=== PATIENT | female | born 1935 | race Caucasian/White ===

== ENCOUNTER 2024-09-08 17:47 | Emergency (ER) | payer OTHER, SELFPAY ==
[2024-09-08 17:53] VITALS: BP 151/72; PULSE 70; RESP 18; TEMP 36.8; O2SAT 93
--- NOTE | 2024-09-08 17:58 | ED.GENADULT ---
HPI - General Adult General Date Seen: 09/08/24 Chief complaint: Urogenital Problems, Female Stated complaint: Urine Retention Time Seen by Provider: 09/08/24 17:57 History of Present Illness HPI narrative: 89 yo Female who was transported to the ER today by EMS from her assisted living for evaluation of urinary retention. Patient does have Lewy body dementia so is not a completely reliable historian. History is obtained mostly from her daughter but also somewhat from records that her along with her. She does have a history of dementia and is on donepezil and rimantadine. She is also on risperidone and sertraline. A few days ago she hit her left elbow accidentally is at some redness and swelling there. She apparently had ?a scan? of her elbow today and is present prescribed an antibiotic (cefdinir) to treat for left elbow cellulitis. She has not received the antibiotic or taken the 1st dose yet. She is not having any abdominal pain but apparently her caregivers were concerned that she was not urinating. She had a bladder ultrasound today that apparently showed a volume of 700 mL of urine in her bladder. Her nurses from the assisted living center here to the ER to have a Hernandez catheter placed. She is not having any abdominal pain. No fever. No nausea or vomiting. No flank pain. Her daughter recalls that once, several years ago, she had temporary placement of a Hernandez catheter. Daughter cannot recall the cause of the urinary retention at that time. The patient also apparently had norovirus about 2 weeks ago. She has Imodium on her med list but it looks like she has not received today. Daughter also reports that the patient's 2 days ago. The family is in the midst of arranging . Related Data Home Medications ?Medication ?Instructions ?Recorded ?Confirmed Senokot-S PRN 09/08/24 amlodipine 5 mg tablet 5 mg PO DAILY 09/08/24 09/08/24 divalproex 250 mg tablet,extended 250 mg PO HS 09/08/24 09/08/24 release 24 hr (Depakote ER) donepezil 5 mg tablet (Aricept) 5 mg PO QHS 09/08/24 09/08/24 levothyroxine 50 mcg capsule 50 mcg PO DAILY 09/08/24 09/08/24 memantine 2.5 mg PO BID 09/08/24 09/08/24 menthol 0.44 %-zinc oxide 20.6 % 1 applic topical TID-QID PRN 09/08/24 09/08/24 topical ointment in packet (Edmund) risperidone 1 mg tablet (Risperdal) 1 mg PO BID 09/08/24 09/08/24 sertraline 100 mg tablet 100 mg PO DAILY 09/08/24 09/08/24 sertraline 50 mg tablet 50 mg PO DAILY 09/08/24 09/08/24 Allergies Allergy/AdvReac Type Severity Reaction Status Date / Time Sulfa (Sulfonamide Allergy Unknown Verified 09/08/24 18:10 Antibiotics) Exam Narrative: Exam Narrative: Constitutional: Appears well-developed and well-nourished. Alert. Conversant but poor historian. Non toxic. Very polite. HENT: Head: Atraumatic. Nose: Nose normal. Mouth/Throat: Oral mucosa is clear and moist. no trismus. Pharynx normal. Eyes: Conjunctivae normal. EOM normal. Pupils equal, round, and reactive to light. No scleral icterus. Neck: Normal range of motion. Neck supple. No tracheal deviation present. Cardiovascular: Normal rate, regular rhythm. No gallop. No friction rub. No murmur heard. Normal capillary refill Pulmonary/Chest: Effort normal. No stridor. No respiratory distress. No wheezes. No rales. No rhonchi . Abdominal: Soft. Bowel sounds normal. No distension. No mass. No tenderness. No rebound. No guarding. No CVA tenderness Musculoskeletal: RUE: Normal range of motion. No tenderness. No deformity LUE: Normal range of motion. No tenderness. No deformity RLE: Normal range of motion. No edema. No tenderness. No deformity LLE: Normal range of motion. No edema. No tenderness. No deformity Neurological: Alert and oriented to person, place, and time. Normal strength. CN II-VII intact. No sensory deficit. GCS eye subscore is 4. GCS verbal subscore is 5. GCS motor subscore is 6. Normal coordination Skin: Skin is warm and dry. No rash noted. No pallor. Normal capillary refill. Psychiatric: Normal mood. Normal affect. Very polite. Daughter is attentively at her side Const: Vital Signs, click to edit/add: Vital Signs - 24 hr 09/08/24 17:53 Temperature 98.3 F Pulse Rate [Pulse Oximeter] 70 Respiratory Rate 18 Blood Pressure [Ri ght Upper Arm] 151/72 H Pulse Oximetry 93 Oxygen Delivery Me thod Room Air Course Course ED Course: History and physical performed in ER stable to. I did do a bedside ultrasound and confirmed the bladder was full. Bladder dimensions 8.8 x 10.2 x 10.1 cm. I did not order a formal point of care ultrasound for this patient Hernandez catheter was placed by nursing and urinalysis sent for analysis. 800 mL of dark yellow urine output Vital Signs Vital signs: Initial Vital Signs Temperature 98.3 F 09/08/24 17:53 Temperature Source Temporal Artery Scan 09/08/24 17:53 Pulse Rate 70 09/08/24 17:53 Respiratory Rate 18 09/08/24 17:53 Blood Pressure 151/72 H 09/08/24 17:53 Blood Pressure Mean 98 09/08/24 17:53 Blood Pressure Position Sitting 09/08/24 17:53 Pulse Oximetry 93 09/08/24 17:53 Oxygen Delivery Method Room Air 09/08/24 17:53 Vital Signs Temperature 98.3 F 09/08/24 17:53 Pulse Rate 70 09/08/24 17:53 Respiratory Rate 18 09/08/24 17:53 Blood Pressure 151/72 H 09/08/24 17:53 Pulse Oximetry 93 09/08/24 17:53 Oxygen Delivery Method Room Air 09/08/24 17:53 Temperature 98.3 F 09/08/24 17:53 Pulse Rate 70 09/08/24 17:53 Respiratory Rate 18 09/08/24 17:53 Blood Pressure 151/72 H 09/08/24 17:53 Pulse Oximetry 93 09/08/24 17:53 Oxygen Delivery Method Room Air 09/08/24 17:53 Medical Decision Making MDM Narrative Medical decision making narrative: Very pleasant 89-year-old female with some dementia brought to the ER today with acute urinary retention and inability to void since yesterday. She had approximately 700 mils of urine in her bladder based on reported ultrasound done in her care facility. Surprisingly she is not having any abdominal pain or flank pain. Hernandez catheter was placed here in the ER and she did have about 800 mils of yellow urine out. Urinalysis does show positive nitrite which is suspicious for UTI as a cause for her acute urinary retention. I reviewed her med list. She is on risperidone and sertraline and recently was on Imodium. All these meds can also cause urinary retention. Currently no other anticholinergics. She was given a prescription for Ceftin earlier today by her regular provider through her assisted living because she has left elbow cellulitis. To cefdinir would be a very good choice to treat urinary tract infection. Therefore will have the patient start the cefdinir tonight which would cover both her left elbow cellulitis and her urine without adding a 2nd anti microbial agent. Urine culture is ordered and pending at the time of this dictation. If it grows a pathogen resistant to cefdinir, we can contact the patient's family by phone to change antibiotics At this point she is not febrile. She is well-appearing. No abdominal pain or flank pain to suggest pyelonephritis. At this point I do not think she needs laboratory workup, CT imaging, admission. Patient and her daughter are in agreement. They strongly prefer discharge since they are in the midst of a family grieving process Precautions for return to the ER reviewed They will follow-up with her PCP in her assisted living in 5-7 days for catheter removal and trial of voiding. Reviewed Hernandez catheter care with the patient and her daughter. Given the patient's dementia we will have to rely on her nurses from the assisted living to help with the catheter Lab Data Labs: Lab Results 09/08/24 Range/Units 18:50 Urine Color Yellow (Yellow) Urine Appearance Cloudy A (Clear) Urine pH 7.0 (5.0-8.5) Ur Specific [place] 1.015 (1.000-1.030) Urine Protein Negative (Negative) Urine Glucose (UA) Negative (Negative) Urine Ketones Negative (Negative) Urine Blood Negative (Negative) Urine Nitrite Positive A (Negative) Urine Bilirubin Negative (Negative) Urine Urobilinogen 1.0 (0.2-1.0) Ur Leukocyte Esterase Trace A (Negative) Urine RBC 0-2 (0-2) Urine WBC 2-5 (0-5) Ur Squamous Epith Cells Few (None-Few) Urine Bacteria Many A (None) Discharge Plan Discharge Clinical Impression: Urinary tract infection, Acute urinary retention Patient Disposition: Hospice - Medical Facility Condition: Stable Instructions: Hernandez Catheter Placement and Care (ED), Acute Urinary Retention in Women (ED), Urinary Tract Infection in Older Adults (ED) Additional Instructions: As we discussed, her urinalysis shows weak signs of a bladder infection. This is likely what is causing her urinary retention. Please start her on the antibiotic (cefdinir) that was already prescribed to her for her elbow. This antibiotic would treat both her elbow infection and her urinary tract infection. The [facility] laboratory will run a urine culture from today specimen. If it grows an unusual strain of bacteria that is not susceptible to cefdinir, the hospital will call you to change antibiotics (likely in 1 or 2 days) Please follow-up with your regular doctor within 5-7 days to have a recheck , remove the Hernandez catheter , and do a trial of voiding. If she has any worsening symptoms such as fever, abdominal pain, flank pain, repetitive vomiting, weakness, or if you have any concerns, please come back to the emergency room right away. Prescriptions: No Action amlodipine 5 mg tablet 5 mg PO DAILY CalaSoothe 0.44-20.6 % ointment in packet 1 applic topical TID-QID PRN divalproex [Depakote ER] 250 mg tablet extended release 24 hr 250 mg PO HS donepezil [Aricept] 5 mg tablet 5 mg PO QHS levothyroxine 50 mcg capsule 50 mcg PO DAILY memantine 2.5 mg PO BID risperidone [Risperdal] 1 mg tablet 1 mg PO BID Senokot-S PRN sertraline 100 mg tablet 100 mg PO DAILY sertraline 50 mg tablet 50 mg PO DAILY Stand Alone Forms: [employer] Info Instructions
[2024-09-08 19:05] LABS: Appearance Urine Cloudy (Clear); Bilirubin Urine Negative (Negative); Blood Urine Negative (Negative); Color Urine Yellow (Yellow); Glucose Urine Negative (Negative); Ketones Urine Negative (Negative); Leukocyte Esterase Urine Trace (Negative); Nitrite Urine Positive (Negative); Protein Urine Negative (Negative); Specific Gravity Urine 1.015 (1.000-1.030)
[2024-09-08 19:17] LABS: Bacteria Urine Many; RBC Urine 0-2 (0-2); Squamous Epithelial Cell Urine Few (None-Few)
[2024-09-08 19:47] VITALS: BP 160/78; PULSE 69; RESP 20; O2SAT 95
== END 2024-09-08 22:07 | disposition hospice, inpatient (51) ==
PROVIDERS: Emergency Provider Emergency Medicine
DX: N39.0 Urinary tract infection, site not specified (principal)
CPT/HCPCS: 51702; 81001; 87086; 99283

== ENCOUNTER 2024-09-10 16:09 | Emergency (ER) | payer OTHER, SELFPAY ==
[2024-09-10] VITALS (14 sets, daily range): BP systolic 136–150; BP diastolic 62–72; PULSE 57–64; RESP 18; TEMP 36.3; O2SAT 92–95; BMI 23.9
--- OUTSIDE RECORDS SUMMARY | 2024-09-10 16:13 | XMS_ITS | CCD ---
Author Name Aida Sr CNP Address [address] [place] [address] Phone Organization [facility] Phone Care Team Providers Care Furnace And Wash Equipment Operator Name Role Phone Aida Sr CNP Primary Care Provider Unavaila ble Orin HYDROGRAPHIC SURVEYORAida Chronic Care Management Unavai lable Summary Purpose DataExchange Insurance Providers Payer name Policy type / Coverage type Covered alliance party ID Effective Begin Date Effective End Date [employer] Commercial Insurance [id number] Unknown [id number] Family History Family History data not found Allergies, Adverse Reactions, Alerts Substance Reaction Codes Entered Date Inactivated Date Status Sulfa Unknown 11/14/2022 No Inactive Date Ac tive Problems Condition Codes Effective Dates Condition St atus Dementia ICD-10: F03.90 ICD-9: 294.20 12/11/2022 Active Depression, major, recurrent, 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 ICD-9: 296.31 12/11/2022 Active Hypothyroid ICD-10: E03.9 ICD-9: 244.9 12/11/2022 Active UTI (urinary tract infection) ICD-10: N3 9.0 ICD-9: 599.0 12/11/2022 Active Advanced care planning - to document end of life discussions Unknown 11/20/2022 Active Advance care planning ICD-10: Z71.89 ICD-9: V65.49 11/20/2022 Active Anxiety ICD-10: F41.9 ICD-9: 300.00 11/20/2022 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 ICD-9: 301.89 11/20/2022 Active HTN (hypertension) ICD-10: I10 ICD-9: 401.9 11/20/2022 Active Suicidal ideation ICD-10: R45.851 ICD-9: V62.84 11/20/2022 Active Vitamin D deficiency ICD-10: E55.9 ICD-9: 268.9 11/20/2022 Active Medications Medication Codes Instructions Start Date Stop Date Status Fill Instructions levofloxacin 500 mg tablet RxNorm: 021251 Take 1 Tablet(s) Oral QD 3 023 Inactive levofloxacin 500 mg tablet RxNorm: 227274 Take 1 Tablet(s) Oral QD 3 023 Inactive levothyroxine 50 mcg tablet RxNorm: 349090 Take 1 Tablet(s) Oral QD before Breakfast 3 023 Inactive amitriptyline 10 mg tablet RxNorm: 901291 Take 1 Tablet(s) Oral QHS every night at bedtime 3 023 Inactive acetaminophen 500 mg tablet RxNorm: 626035 2 Tablet(s) Oral TID as needed 3 023 Inactive amlodipine 5 mg tablet RxNorm: 013058 Take 1 Tablet(s) Oral QAM every morning 3 023 Inactive melatonin 5 mg tablet RxNorm: 161346 Give 1 Tablet(s) Oral QHS every night at bedtime 3 023 Inactive buspirone 15 mg tablet RxNorm: 742639 Take 1 Tablet(s) Oral BID 3 023 Inactive Seroquel 25 mg tablet RxNorm: 891769 Take 1 Tablet(s) Oral QHS every night at bedtime 3 023 Inactive cholecalciferol (vitamin D3) 50 mcg (2,000 unit) tablet RxNorm: 655966 Take 1 Tablet(s) Oral QD 3 023 Inactive rivastigmine 1.5 mg capsule RxNorm: 474478 Take 2 Capsule(s) Oral BID 3 023 Inactive mirtazapine 15 mg tablet RxNorm: 682770 Take 1 Tablet(s) Oral QHS every night at bedtime 3 023 Inactive aspirin-acetaminoph en-caffeine 250 mg-250 mg-65 mg tablet RxNorm: 530455 Take 2 Tablet(s) Oral QD as needed 3 023 Inactive escitalopram 10 mg tablet RxNorm: 699353 Take 1 Tablet(s) Oral QD 3 023 Inactive Medication Administered No Medication Administered data Immunizations Vaccine Codes Dose Date Status Influenza CVX: 205 1.0 04/06/2022 Covid-19 (PacerPro mR NA, LNP-S, PF, 30 mcg/0.3 mL dose, amanda-sucrose) CVX: 217 1.0 02/08/2022 Covid-19 (Adult) CVX: 208 1.0 04/11/2021 Covid-19 (Adult) CVX: 208 1.0 08/31/2020 Covid-19 (Adult) CVX: 208 1.0 08/10/2020 Tdap CVX: 115 1.0 07/26/2020 Tetanus, Diptheria, Pertussis CVX: 115 1.0 2020 Influenza CVX: 197 1.0 03/19/2020 Zostavax CVX: 187 1.0 02/10/2019 Zoster CVX: 187 1.0 02/10/2019 Zostavax CVX: 187 1.0 07/31/2018 Zoster CVX: 187 1.0 07/31/2018 Pneumococcal CVX: 133 1.0 05/09/2016 HepA - Adult CVX: 52 1.0 08/15/2011 Pneumococcal CVX: 33 1.0 04/03/2011 HepA - Adult CVX: 52 1.0 08/16/2010 Tdap CVX: 115 1.0 08/16/2010 Tetanus, Diptheria, Pertussis CVX: 115 1.0 2010 Zostavax CVX: 121 1.0 07/08/2007 Zoster CVX: 121 1.0 07/08/2007 Pneumococcal CVX: 33 1.0 01/02/2001 Pneumococcal CVX: 33 1.0 09/04/2000 Vital Signs Date Vital 12/11/2022 Blood Pressure 1: 143/87 Code: 8480-6 Heart Rate 1: 84 bpm Code: 8867-4 Respiratory Rate: 20 bpm Temperature: 36.3 (C) / 97.3 (F) Weight: 155 lbs 8 oz Code: 3141-9 Reason For Visit No Reason For Visit data Encounters Encounter Performer Location Location Address Codes Date () Home or Residence Visit Est Pt - Moderate Level, 40 mins Diagnosis: UTI (urinary tract infection)[ICD10: N39.0] Diagnosis: Depression, major, recurrent, mild[ICD10: F33.0] Diagnosis: Hypothyroid[ICD10 : E03.9] Diagnosis: Dementia[ICD10: F03.90] Aida Sr [facility] at [address] [address] CPT-4: 60754 12/11/2022 Plan of Care Planned Activity Notes Codes Status Date Patient Education: Patient Medication Summary Completed 12/11/2022 Patient Education: Influenza Vaccine Completed 12/11/2022 Appointment: Aida Sr WPtel: [address] [place] [address] [id number] 11/20/2022 Referral: General Psychiatrist Referral Patient/Family Scheduling Appointment Referral: VIA Orthopedics- I n Home Visits WPtel: [address] [id number] Referral Order Note Incomplete Instructions Comment Date Elderly female residing in [facility] assisted living at [facility] in [place]. PMHx: dementia, cluster B personality traits, depression, hypothyroidism, HTN, anxiety, suicidal ideationsPOLST: FULL CODEFred Anatoly-spouse, Duhq: November/DecLisa-therapist: weekly calls usually on :1 visits 3 times weekly 01/28/2024 Depression Continue amitripyline 10mg q HS, lexapro 10mg daily, mirtazapine 15mg at HS. Will monitor for signs of decreased/increased sleep or appetite, decreased energy level or interest in activities. Age increases risk for depression. Will continuously evaluate appropriate involvement of medications, BHI, Psych and additional sitter/caregiver. Hypothyroidism Continue levothyroxine 50mcg. Monitor for fatigue, increased sensitivity to cold, constipation, irritability, weakness, muscle aches or stiffness, decreased HR, hoarse voice and enlarged thyroid. November 2022 TSH 1.63 UTI Patient was treated for UTI on 11/23/22 with levofloxacin 500mg daily x 7 days. Monitor for s/s of uti. Encourage adequate fluid intake. Neurocognitive Disorders Continue buspar 15mg BID, mirtazapine 15mg at HS, rivastigmine 3mg BID, seroquel 25mg at HS. Appreciate BPS psych and BHI. Safe in [facility] setting with 24 hour nursing supervision. Anticipate ongoing cognitive and physical decline with disease progression. Continue current care plan and reassessment in one month. Facility to update with any changes in the condition. . 12/11/2022
--- OUTSIDE RECORDS SUMMARY | 2024-09-10 16:15 | XMS_ITS | CCD ---
Author Organization Unknown Care Team Providers Care Product Test Specialist Name Role Phone Orin GARCIA, Aida Primary Care Provider Unavaila ble Aida Sr CNP Chronic Care Management Unavai lable Summary Purpose DataExchange Insurance Providers Payer name Policy type / Coverage type Covered alliance party ID Effective Begin Date Effective End Date [employer] Commercial Insurance [id number] Unknown [id number] Family History Family History data not found Allergies, Adverse Reactions, Alerts Substance Reaction Codes Entered Date Inactivated Date Status Sulfa Unknown 11/14/2022 No Inactive Date Ac tive Problems Condition Codes Effective Dates Condition St atus Anxiety ICD-10: F41.9 ICD-9: 300.00 02/28/2023 Active Dementia ICD-10: F03.90 ICD-9: 294.20 02/28/2023 Active Major depression, 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 ICD-9: 301.89 01/18/2023 Active Suicidal ideation ICD-10: R45.851 ICD-9: V62.84 01/18/2023 Active HTN (hypertension) ICD-10: I10 ICD-9: 401.9 01/15/2023 Active Hypothyroid ICD-10: E03.9 ICD-9: 244.9 12/11/2022 Active UTI (urinary tract infection) ICD-10: N3 9.0 ICD-9: 599.0 12/11/2022 Active Advanced care planning - to document end of life discussions Unknown 11/20/2022 Active Advance care planning ICD-10: Z71.89 ICD-9: V65.49 11/20/2022 Active Vitamin D deficiency ICD-10: E55.9 ICD-9: 268.9 11/20/2022 Active Medications Medication Codes Instructions Start Date Stop Date Status Fill Instructions naproxen 500 mg tablet RxNorm: 008867 Take 1 Tablet(s) Oral BID 01/23/20 023 Inactive naproxen 500 mg tablet RxNorm: 205324 Take 1 Tablet(s) Oral BID 01/23/20 023 Inactive naproxen 500 mg tablet RxNorm: 569552 Take 1 Tablet(s) Oral BID 01/23/20 023 Inactive mirtazapine 15 mg tablet RxNorm: 946126 Take 1 Tablet(s) Oral HS at bed time 01/01/20 023 Inactive CYCLE FILL REQUEST FOR CYCLE THAT STARTS 01/04/2023 escitalopram 10 mg tablet RxNorm: 814867 Take 1 Tablet(s) Oral QAM every morning 12/14/19 023 Inactive Cycle refill request. Cycle restarts (01/04/23). melatonin 10 mg sublingual tablet RxNorm: 6423459 TAKE 1 TABLET BY MOUTH AT BEDTIME NOTE DOSAGE/STRENGTH* 12/14/19 023 Inactive Cycle refill request. Cycle restarts (01/04/23). rivastigmine 1.5 mg capsule RxNorm: 165107 Take 1 Capsule(s) Oral BID 12/14/19 023 Inactive Cycle refill request. Cycle restarts (01/04/23). quetiapine 100 mg tablet RxNorm: 653819 Take 1 Tablet(s) Oral HS at bed time 12/14/19 023 Inactive Cycle refill request. Cycle restarts (01/04/23). buspirone 15 mg tablet RxNorm: 391809 Take 1 Tablet(s) Oral BID 12/14/19 023 Inactive Cycle refill request. Cycle restarts (01/04/23). amitriptyline 10 mg tablet RxNorm: 960357 Take 1 Tablet(s) Oral HS at bed time 12/14/19 23 023 Inactive Cycle refill request. Cycle restarts (01/04/23). cholecalciferol (vitamin D3) 50 mcg (2,000 unit) tablet RxNorm: 807121 Take 1 Tablet(s) Oral QAM every morning 12/14/19 23 023 Inactive Cycle refill request. Cycle restarts (01/04/23). levothyroxine 50 mcg tablet RxNorm: 298374 TAKE 1 TABLET BY MOUTH ONCE DAILY BEFORE BREAKFAST 12/14/19 23 023 Inactive Cycle refill request. Cycle restarts (01/04/23). amlodipine 5 mg tablet RxNorm: 785866 Take 1 Tablet(s) Oral QAM every morning 12/14/19 23 023 Inactive Cycle refill request. Cycle restarts (01/04/23). levofloxacin 500 mg tablet RxNorm: 924144 Take 1 Tablet(s) Oral QD 11/24/19 23 023 Inactive levofloxacin 500 mg tablet RxNorm: 764355 Take 1 Tablet(s) Oral QD 11/24/19 23 023 Inactive acetaminophen 500 mg tablet RxNorm: 925935 2 Tablet(s) Oral TID as needed 11/18/19 23 023 Inactive Seroquel 25 mg tablet RxNorm: 691711 Take 1 Tablet(s) Oral QHS every night at bedtime 11/18/19 23 023 Inactive aspirin-acetaminoph en-caffeine 250 mg-250 mg-65 mg tablet RxNorm: 271378 Take 2 Tablet(s) Oral QD as needed 11/18/19 23 023 Inactive levothyroxine 50 mcg tablet RxNorm: 625209 Take 1 Tablet(s) Oral QD before Breakfast 11/18/19 23 023 Inactive amitriptyline 10 mg tablet RxNorm: 567235 Take 1 Tablet(s) Oral QHS every night at bedtime 11/18/19 23 023 Inactive amlodipine 5 mg tablet RxNorm: 934462 Take 1 Tablet(s) Oral QAM every morning 11/18/19 23 06/07/2 023 Inactive melatonin 5 mg tablet RxNorm: 575580 Give 1 Tablet(s) Oral QHS every night at bedtime 11/18/19 023 Inactive buspirone 15 mg tablet RxNorm: 812227 Take 1 Tablet(s) Oral BID 11/18/19 023 Inactive cholecalciferol (vitamin D3) 50 mcg (2,000 unit) tablet RxNorm: 906536 Take 1 Tablet(s) Oral QD 11/18/19 023 Inactive rivastigmine 1.5 mg capsule RxNorm: 520163 Take 2 Capsule(s) Oral BID 11/18/19 023 Inactive mirtazapine 15 mg tablet RxNorm: 821293 Take 1 Tablet(s) Oral QHS every night at bedtime 11/18/19 023 Inactive escitalopram 10 mg tablet RxNorm: 764922 Take 1 Tablet(s) Oral QD 11/18/19 023 Inactive Medication Administered No Medication Administered data Immunizations Vaccine Codes Dose Date Status Influenza CVX: 205 1.0 04/06/2022 Covid-19 ([email or web address] mR NA, LNP-S, PF, 30 mcg/0.3 mL [...] 1.0 01/02/2001 Pneumococcal CVX: 33 1.0 09/04/2000 Reason For Visit No Reason For Visit data Plan of Care Planned Activity Notes Codes Status Date Referral: General Psychiatrist Referral Patient/Family Scheduling Appointment Referral: VIA Orthopedics- I n Home Visits WPtel: [address], [address] [id number] Referral Order Note Incomplete Instructions Comment Date Elderly female residing in [facility] assisted living at [facility]. PMHx: dementia, cluster B personality traits, depression, hypothyroidism, HTN, anxiety, suicidal ideationsPOLST: FULL CODEFred Anatoly-spouse, Dnia: November/Scotty-therapist: weekly calls usually on :1 visits 3 times weekly 01/28/2024
--- OUTSIDE RECORDS SUMMARY | 2024-09-10 16:15 | XMS_ITS | CCD ---
Author Name Aida Sr CNP Address [address] [place] [address] Phone Organization [facility] Phone Care Team Providers Care Meat Counter Clerk Name Role Phone Orin RADHAAida Primary Care Provider Unavaila ble Orin RADHAAida Chronic Care Management Unavai lable Summary Purpose DataExchange Insurance Providers Payer name Policy type / Coverage type Covered democrat ID Effective Begin Date Effective End Date [employer] Commercial Insurance [id number] Unknown Family history Runs in the family Diagnosis Age At Onset No Known Diseases N/A Social History Social History Element Codes Description Effec tive Dates Marital status Unknown 01/28/2024 Living arrangements Unknown Memory Care 01/28/[address]: 766778164 Never smoker 01/[address]: 115771749 No Alcohol Consum ption 01/28/2024 Sexually Active? Unknown No 01/28/2024 Children Unknown Has Children 01/28/2024 Patient Health Status Self Assessment Unknown Good 01/28/2024 Do you worry about access to food? Unknown No 01/28/2024 Seatbelt safety Unknown Wears seatbelt 01/28/2024 Illicit Drug History Unknown Has never u sed illegal drugs 01/28/2024 Do you feel safe in your home? Unknown Yes 01/28/2024 Allergies, Adverse Reactions, Alerts Substance Reaction Codes Entered Date Inactivated Date Status Sulfa Unknown 11/14/2022 No Inactive Date Ac tive Problems Condition Codes Effective Dates Condition St atus Acute cough SNOMED CT: 289240667 [id number] ICD-10: R05.1 ICD-9: 786.2 09/08/2024 Active Dementia ICD-10: F03.90 ICD-9: 294.20 09/08/2024 Active HTN (hypertension) ICD-10: I10 ICD-9: 401.9 09/08/2024 Active Hypothyroid ICD-10: E03.9 ICD-9: 244.9 09/08/2024 Active Insomnia ICD-10: G47.00 ICD-9: 780.52 09/08/2024 Active Left elbow pain SNOMED CT: 97209587 ICD-10: M25.522 ICD-9: 719.42 09/08/2024 Active Urinary frequency SNOMED CT: 524959769 ICD-10: R35.0 ICD-9: 788.41 09/08/2024 Active Frailty ICD-10: R54 ICD-9: 797 08/04/2024 Active Depression, major, recurrent, 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 ICD-9: 296.34 06/30/2024 Active 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 ICD-9: 297.1 06/30/2024 Active Fall ICD-10: W19.XXXA ICD-9: E888.9 06/02/2024 Active Paresis ICD-10: G83.9 ICD-9: 344.9 05/05/2024 Active Advance care planning ICD-10: Z71.89 ICD-9: V65.49 01/28/2024 Active Anxiety ICD-10: F41.9 ICD-9: 300.00 01/28/2024 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 ICD-9: 301.89 01/28/2024 Active Encounter for preventive care ICD-10: Z00.00 ICD-9: V70.0 01/28/2024 Active Gait instability ICD-10: R26.81 ICD-9: 781.2 01/28/2024 Active Major depression, 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9 ICD-9: 296.30 01/28/2024 Resolved Spider bite wound ICD-10: T63.301A ICD-9: 989.5 01/28/2024 Resolved Strain of right trapezius muscle, initial encounter ICD-10: S46.811A ICD-9: 840.8 01/28/2024 Resolved UTI (urinary tract infection) ICD-10: N39.0 ICD-9: 599.0 12/31/2023 Active Depression, major, recurrent, mild ICD-10: F33.0 ICD-9: 296.31 09/17/2023 Resolved Elevated liver enzymes ICD-10: R74.8 ICD-9: 790.5 07/23/2023 Active Suicidal ideation ICD-10: R45.851 ICD-9: V62.84 05/04/2023 Active Advanced care planning - to document end of life discussions Unknown 11/20/2022 Active Vitamin D deficiency ICD-10: E55.9 ICD-9: 268.9 11/20/2022 Active Medications Medication Codes Instructions Start Date Stop Date Status Fill Instructions miscellaneous medical supply [facility] RxNorm: TUNGUYEN DM LIQ 20-400ML Take 10 Milliliter(s) Oral BID as needed 09/09/19 No Stop Date Active Pain Reliever Plus 250 mg-250 mg-65 mg tablet RxNorm: 100867 Take 1 Tablet(s) Oral QD as needed 09/09/19 No Stop Date Active cefdinir 300 mg capsule RxNorm: 558674 Take 1 Capsule(s) Oral BID 09/09/19 25 025 Active trazodone 50 mg tablet RxNorm: 868269 Take 1 Tablet(s) Oral QHS every night at bedtime as needed 09/09/19 25 026 Active loperamide 2 mg tablet RxNorm: 267163 Take 1 Tablet(s) Oral BID as needed 09/09/19 25 025 Active cefdinir 300 mg capsule RxNorm: 108701 Take 1 Capsule(s) Oral BID 09/09/19 25 025 Inactive trazodone 50 mg tablet RxNorm: 044732 Take 1 Tablet(s) Oral QHS every night at bedtime 09/08/19 25 025 Inactive Calmoseptine 0.44 %-20.6 % topical ointment RxNorm: 0265054 Apply Topical TID as needed to Buttocks and affected areas 08/26/19 25 025 Active Calmoseptine 0.44 %-20.6 % topical ointment RxNorm: 8930066 Apply ointment Topical TID as needed to Buttocks and affected areas 08/26/19 25 025 Inactive ondansetron 4 mg disintegrating tablet RxNorm: 835534 Take 1 Tablet(s) Oral Q4H every four hours as needed 08/25/19 25 025 Inactive ondansetron 4 mg disintegrating tablet RxNorm: 992106 Take 1 Tablet(s) Oral Q4H every four hours as needed 08/25/19 25 025 Inactive sertraline 100 mg tablet RxNorm: 938043 Take 1 Tablet(s) Oral QD 08/14/19 25 025 Inactive REFILL REQUEST FOR CYCLE THAT STARTS ON 09/11/24. THANK YOU. donepezil 5 mg tablet RxNorm: 804344 TAKE ONE-HALF TABLET (2.5MG) BY MOUTH ONCE DAILY 07/20/19 25 049 Active CYCLE FILL REFILL REQUEST FOR CYCLE FILL THAT STARTS 08/14/2024 Senexon-S 8.6 mg-50 mg tablet RxNorm: 6456035 Take 1 Tablet(s) Oral BID as needed 06/30/20 24 028 Active risperidone 1 mg tablet RxNorm: 662354 Take 1 Tablet(s) Oral BID 06/26/20 24 025 Active memantine 5 mg tablet RxNorm: 359032 TAKE ONE-HALF TABLET (2.5MG) BY MOUTH TWICE DAILY 06/23/20 24 049 Active REFILL REQUEST FOR CYCLE THAT BEGINS 07/17, THANK YOU risperidone 0.5 mg tablet RxNorm: 618045 Take 1 Tablet(s) Oral QAM every morning 03/14/20 024 Inactive acetaminophen 500 mg tablet RxNorm: 830566 Take 2 Tablet(s) Oral TID as needed 02/22/20 24 No Stop Date Active risperidone 1 mg tablet RxNorm: 993010 Take 1 Tablet(s) Oral HS at bed time 02/22/20 24 024 Inactive acetaminophen 500 mg tablet RxNorm: 646229 Take 2 Tablet(s) Oral TID as needed 02/22/20 24 024 Inactive sertraline 100 mg tablet RxNorm: 974419 Take 1 Tablet(s) Oral QD Take w/ 50mg tablet 01/27/20 24 025 Active sertraline 50 mg tablet RxNorm: 932230 Take 1 Tablet(s) Oral QD Take w/ 100mg tablet 01/27/20 24 025 Active acetaminophen 500 mg tablet RxNorm: 472181 Take 2 Tablet(s) Oral TID as needed 01/27/20 24 024 Inactive amlodipine 5 mg tablet RxNorm: 222314 Take 1 Tablet(s) Oral QAM every morning 01/09/20 24 048 Active REFILL REQUEST FOR CYCLE THAT BEGINS 01/30, THANK YOU! levothyroxine 50 mcg tablet RxNorm: 289172 Take 1 Tablet(s) Oral QD BEFORE BREAKFAST 01/09/20 24 048 Active REFILL REQUEST FOR CYCLE THAT BEGINS 01/30, THANK YOU! cholecalciferol (vitamin D3) 50 mcg (2,000 unit) tablet RxNorm: 367815 Take 1 Tablet(s) Oral QAM every morning 01/09/20 24 048 Active REFILL REQUEST FOR CYCLE THAT BEGINS 01/30, THANK YOU! risperidone 0.5 mg tablet RxNorm: 780265 Take 1 Tablet(s) Oral BID 01/09/20 24 024 Inactive REFILL REQUEST FOR CYCLE THAT BEGINS 01/30, THANK YOU! sertraline 50 mg tablet RxNorm: 981582 TAKE 1 TABLET BY MOUTH ONCE DAILY. TAKE ALONG WITH 100 MG TABLET DAILY FOR A TOTAL DOSE OF 150 MG 01/09/20 24 024 Inactive REFILL REQUEST FOR CYCLE THAT BEGINS 01/30, THANK YOU! risperidone 0.5 mg tablet RxNorm: 343453 Take 1 Tablet(s) Oral BID 01/07/20 24 024 Inactive levofloxacin 500 mg tablet RxNorm: 747154 Take 1 Tablet(s) Oral QD 12/31/19 24 024 Inactive acetaminophen 500 mg tablet RxNorm: 094624 Take 2 Tablet(s) Oral TID 12/31/19 24 024 Inactive levofloxacin 500 mg tablet RxNorm: 956675 Take 1 Tablet(s) Oral QD 12/31/19 24 024 Inactive divalproex ER 250 mg tablet,extended release 24 hr RxNorm: 0137164 TAKE 1 TABLET BY MOUTH AT BEDTIME HAZARDOUS DRUG-DOUBLE GLOVE 10/21/19 24 048 Active CYCLE FILL REFILL REQUEST FOR CYCLE FILL THAT STARTS 11/08/2023. risperidone 1 mg tablet RxNorm: 030774 Take 1 Tablet(s) Oral BID 10/21/19 24 024 Inactive CYCLE FILL REFILL REQUEST FOR CYCLE FILL THAT STARTS 11/08/2023. acetaminophen 500 mg tablet RxNorm: 114785 Take 2 Tablet(s) Oral BID as needed 09/13/19 24 Inactive Tylenol Extra Strength 500 mg tablet RxNorm: 165428 Take 2 Tablet(s) Oral BID as needed 09/13/19 24 Inactive trazodone 50 mg tablet RxNorm: 876793 Take 1 Tablet(s) Oral QHS every night at bedtime 09/13/19 24 024 Inactive quetiapine 100 mg tablet RxNorm: 929285 Take 1.5 Tablet(s) Oral HS at bed time 09/13/19 24 024 Inactive Senexon-S 8.6 mg-50 mg tablet RxNorm: 0330111 Take 1 Tablet(s) Oral BID as needed 09/13/19 24 025 Inactive sertraline 100 mg tablet RxNorm: 113693 Take 1.5 Tablet(s) Oral QD 09/13/19 24 024 Inactive Pain Reliever Plus 250 mg-250 mg-65 mg tablet RxNorm: 613481 Take 2 Tablet(s) Oral QD as needed 09/13/19 24 024 Inactive sertraline 100 mg tablet RxNorm: 439364 Take 1 Tablet(s) Oral QD 07/29/19 24 024 Inactive Please authorize cycle refill. Thanks. acetaminophen 500 mg tablet RxNorm: 873087 Take 2 Tablet(s) Oral BID as needed 07/20/19 24 024 Inactive acetaminophen 500 mg tablet RxNorm: 265870 Take 2 Tablet(s) Oral BID as needed 07/20/19 24 024 Inactive sertraline 100 mg tablet RxNorm: 763548 Take 1 Tablet(s) Oral QD 07/13/19 024 Inactive donepezil 5 mg tablet RxNorm: 935680 TAKE ONE-HALF TABLET (2.5MG) BY MOUTH ONCE DAILY 07/05/20 023 Inactive Cycle refill request. Cycle restarts (07/19/23). risperidone 1 mg tablet RxNorm: 882677 Take 1 Tablet(s) Oral HS at bed time 06/25/20 024 Inactive trazodone 50 mg tablet RxNorm: 346613 Take 1 Tablet(s) Oral QHS every night at bedtime as needed 06/25/20 024 Inactive quetiapine 25 mg tablet RxNorm: 888537 Take 1 Tablet(s) Oral Q4H every four hours as needed 06/25/20 024 Inactive Senna-S 8.6 mg-50 mg tablet RxNorm: 626793 Take 1 Tablet(s) Oral BID as needed 06/25/20 023 Inactive trazodone 50 mg tablet RxNorm: 756652 Take 1 Tablet(s) Oral QHS every night at bedtime as needed 06/25/20 023 Inactive Senna-S 8.6 mg-50 mg tablet RxNorm: 306600 Take 1 Tablet(s) Oral BID as needed 06/25/20 024 Inactive acetaminophen 500 mg tablet RxNorm: 152228 Take 2 Tablet(s) Oral BID as needed 06/18/20 024 Inactive acetaminophen 500 mg tablet RxNorm: 084955 Take 2 Tablet(s) Oral BID as needed 06/18/20 23 023 Inactive Excedrin Extra Strength 250 mg-250 mg-65 mg tablet RxNorm: 439642 Take 2 Tablet(s) Oral QD as needed 06/18/20 23 023 Inactive Excedrin Extra Strength 250 mg-250 mg-65 mg tablet RxNorm: 601613 Take 2 Tablet(s) Oral QD as needed 06/18/20 23 024 Inactive risperidone 1 mg tablet RxNorm: 987102 Take 1 Tablet(s) Oral BID 06/04/20 23 023 Inactive quetiapine 25 mg tablet RxNorm: 899842 Take 1 Tablet(s) Oral BID as needed 06/04/20 023 Inactive trazodone 50 mg tablet RxNorm: 854077 Take 1 Tablet(s) Oral QHS every night at bedtime 06/04/20 023 Inactive donepezil 10 mg tablet RxNorm: 922128 Take 1 Tablet(s) Oral QD 06/04/20 024 Inactive risperidone 1 mg tablet RxNorm: 705404 Take 1 Tablet(s) Oral BID as needed 06/04/20 023 Inactive Senexon-S 8.6 mg-50 mg tablet RxNorm: 7286550 Take 1 Tablet(s) Oral BID 06/03/20 023 Inactive Please authorize quantity 90 day supply with PRN refills for assisted living patient. Their cycle restarts 06/14/23. Thank you! memantine 5 mg tablet RxNorm: 020062 TAKE ONE-HALF TABLET (2.5MG) BY MOUTH TWICE DAILY 06/03/20 023 Inactive Please authorize quantity 90 day supply with PRN refills for assisted living patient. Their cycle restarts 06/14/23. Thank you! divalproex 125 mg capsule,delayed release sprinkle RxNorm: 1728469 TAKE 4 CAPSULES (500MG) BY MOUTH AT BEDTIME 06/03/20 024 Inactive Please authorize quantity 90 day supply with PRN refills for assisted living patient. Their cycle restarts 06/14/23. Thank you! sertraline 50 mg tablet RxNorm: 068672 Take 1 Tablet(s) Oral QD 06/03/20 024 Inactive Please authorize quantity 90 day supply with PRN refills for assisted living patient. Their cycle restarts 06/14/23. Thank you! naproxen 500 mg tablet RxNorm: 644367 Take 1 Tablet(s) Oral BID 01/23/20 023 Inactive naproxen 500 mg tablet RxNorm: 084365 Take 1 Tablet(s) Oral BID 07/17/20 23 07/26/2 023 Inactive naproxen 500 mg tablet RxNorm: 235147 Take 1 Tablet(s) Oral BID 01/23/20 23 023 Inactive mirtazapine 15 mg tablet RxNorm: 109171 Take 1 Tablet(s) Oral HS at bed time 01/01/20 23 023 Inactive CYCLE FILL REQUEST FOR CYCLE THAT STARTS 01/04/2023 escitalopram 10 mg tablet RxNorm: 652371 Take 1 Tablet(s) Oral QAM every morning 12/14/19 23 023 Inactive Cycle refill request. Cycle restarts (01/04/23). cholecalciferol (vitamin D3) 50 mcg (2,000 unit) tablet RxNorm: 442254 Take 1 Tablet(s) Oral QAM every morning 12/14/19 23 023 Inactive Cycle refill request. Cycle restarts (01/04/23). melatonin 10 mg sublingual tablet RxNorm: 0043645 TAKE 1 TABLET BY MOUTH AT BEDTIME NOTE DOSAGE/STRENGTH* 12/14/19 23 023 Inactive Cycle refill request. Cycle restarts (01/04/23). rivastigmine 1.5 mg capsule RxNorm: 969443 Take 1 Capsule(s) Oral BID 12/14/19 023 Inactive Cycle refill request. Cycle restarts (01/04/23). quetiapine 100 mg tablet RxNorm: 714753 Take 1 Tablet(s) Oral HS at bed time 12/14/19 23 023 Inactive Cycle refill request. Cycle restarts (01/04/23). levothyroxine 50 mcg tablet RxNorm: 056088 TAKE 1 TABLET BY MOUTH ONCE DAILY BEFORE BREAKFAST 12/14/19 23 023 Inactive Cycle refill request. Cycle restarts (01/04/23). amlodipine 5 mg tablet RxNorm: 908013 Take 1 Tablet(s) Oral QAM every morning 12/14/19 23 023 Inactive Cycle refill request. Cycle restarts (01/04/23). buspirone 15 mg tablet RxNorm: 580131 Take 1 Tablet(s) Oral BID 12/14/19 23 023 Inactive Cycle refill request. Cycle restarts (01/04/23). amitriptyline 10 mg tablet RxNorm: 442535 Take 1 Tablet(s) Oral HS at bed time 12/14/19 23 023 Inactive Cycle refill request. Cycle restarts (01/04/23). levofloxacin 500 mg tablet RxNorm: 234921 Take 1 Tablet(s) Oral QD 11/24/19 23 023 Inactive levofloxacin 500 mg tablet RxNorm: 895981 Take 1 Tablet(s) Oral QD 11/24/19 23 023 Inactive levothyroxine 50 mcg tablet RxNorm: 479303 Take 1 Tablet(s) Oral QD before Breakfast 11/18/19 023 Inactive amitriptyline 10 mg tablet RxNorm: 758453 Take 1 Tablet(s) Oral QHS every night at bedtime 11/18/19 023 Inactive acetaminophen 500 mg tablet RxNorm: 847415 2 Tablet(s) Oral TID as needed 11/18/19 23 023 Inactive amlodipine 5 mg tablet RxNorm: 321337 Take 1 Tablet(s) Oral QAM every morning 11/18/19 023 Inactive melatonin 5 mg tablet RxNorm: 843585 Give 1 Tablet(s) Oral QHS every night at bedtime 11/18/19 23 023 Inactive buspirone 15 mg tablet RxNorm: 171711 Take 1 Tablet(s) Oral BID 11/18/19 023 Inactive Seroquel 25 mg tablet RxNorm: 667498 Take 1 Tablet(s) Oral QHS every night at bedtime 11/18/19 23 023 Inactive cholecalciferol (vitamin D3) 50 mcg (2,000 unit) tablet RxNorm: 431967 Take 1 Tablet(s) Oral QD 11/18/19 23 023 Inactive rivastigmine 1.5 mg capsule RxNorm: 113440 Take 2 Capsule(s) Oral BID 11/18/19 23 023 Inactive mirtazapine 15 mg tablet RxNorm: 409705 Take 1 Tablet(s) Oral QHS every night at bedtime 11/18/19 023 Inactive aspirin-acetaminoph en-caffeine 250 mg-250 mg-65 mg tablet RxNorm: 475089 Take 2 Tablet(s) Oral QD as needed 11/18/19 023 Inactive escitalopram 10 mg tablet RxNorm: 581744 Take 1 Tablet(s) Oral QD 11/18/19 023 Inactive Medication Administered No Medication Administered data Immunizations Vaccine Codes Dose Date Status Influenza CVX: 205 1.0 04/06/2022 Covid-19 (Shelfie-Wilocity mR NA, LNP-S, PF, 30 mcg/0.3 mL [...] 33 1.0 09/04/2000 Vital Signs Date Vital 09/08/2024 Blood Pressure 1: 135/59 Code: 8480-6 Heart Rate 1: 67 bpm Code: 8867-4 Respiratory Rate: 23 bpm Temperature: 36.1 (C) / 96.9 (F) Weight: 163 lbs 3 oz Code: 3141-9 Functional Status Functional / Cognitive Codes Status Result Ef fective Dates Functional Assessment Unknown ADL - Dressing Independen t 01/28/2024 Functional Assessment Unknown ADL - Feeding Independent 01/28/2024 Functional Assessment Unknown ADL - Tolieting Independe nt 01/28/2024 Functional Assessment Unknown ADL - Bathing Needs Help 01/28/2024 Functional Assessment Unknown ADL - Grooming Needs Help 01/28/2024 Functional Assessment Unknown ADL - Physical Ambulation Independent 01/28/2024 Functional Assessment Unknown iADL - Mod e of Transportation Dependent 01/28/2024 Functional Assessment Unknown iADL - Managing Medicatio n Dependent 01/28/2024 Functional Assessment Unknown Other: Catherine pping, Finances, Housekeeping, Dependent 01/28/2024 Reason For Visit No Reason For Visit data Encounters Encounter Performer Location Location Address Codes Date ([address]) Home or Residence Visit Est Pt - High Level, 60 mins Diagnosis: Urinary frequency[SNOMED: 058538010] Diagnosis: HTN (hypertension)[IC D10: I10] Diagnosis: Left elbow pain[SNOMED: 01829639] Diagnosis: Hypothyroid[ICD10 : E03.9] Diagnosis: Acute cough[SNOMED: 54687824006640959 4] Diagnosis: Dementia[ICD10: F03.90] Diagnosis: Insomnia[ICD10: G47.00] Aida Sr [facility] at [address] [address] CPT-4: 57030 09/08/2024 Plan of Care Planned Activity Notes Codes Status Date Patient Education: Patient Medication Summary Completed 09/08/2024 Patient Education: Influenza Completed 09/08/2024 Care Plan: X-Ray, elbow; 2 views LOINC : 39129-4 Pending 09/08/2024 Care Plan: Comprehensive Metabolic Panel Pending 09/08/2024 Care Plan: CBC with Platelets & Differential Pending 025 Care Plan: TSH with Reflex to Free T4 Pending 09/08/2024 Appointment: Aida Sr WPt[facility]: [address] [place] [address] [address] [id number] [place] F/U 12/31/2023 Appointment: Aida Sr W[facility]: [address] [place] [address] [address] [id number] [place] F/U 09/17/2023 Appointment: Aida Sr W[facility]: [address] [place] [address] [id number] [place] F/U 07/23/2023 Appointment: Aida Sr [facility]Pt[facility]: [address] [place] [address] [id number] [place] F/U 06/25/2023 Appointment: Bam Frey: [address] [place], [place] [id number] [place] SDV 01/22/2023 Appointment: Aida Sr WPtel: [address] [place] [address] [id number] [place] NPAWV 11/20/2022 Referral: General Psychiatrist Referral Patient/Family Scheduling Appointment Referral: [facility] Vis[facility] WPtel: [address], [address] [id number] Referral Order Note Incomplete Instructions Comment Date Elderly female residing in [facility] assisted living at [facility]. PMHx: dementia, cluster B personality traits, depression, hypothyroidism, HTN, anxiety, suicidal ideationsPOLST: FULL CODEFred Anatoly-spouse, Hurf: November/Scotty-therapist: weekly calls usually on -:1 visits 3 times weekly 01/28/2024 Insomnia Will start trazodone 50mg qHS PRN. Left elbow pain Will order left elbow XRAY and consult [facility]. Will start cefdinir 300mg BID x 7 days. Hypothyroid levothyroxine 50mcg qd. Will check TSH. Urinary frequency Increase in urinary frequency. Will check UA/UC and ultrasound of bladder. Dementia Will order hospice to evaluate and treat. namenda 2.5mg BID, donepezil 2.5mg qd. HTN (hypertension) amlodipine 5mg qd. Will check CBC, BMP Acute cough Will order CXR. . 09/08/2024
--- OUTSIDE RECORDS SUMMARY | 2024-09-10 16:15 | XMS_ITS | CCD ---
Author Name Aida Sr CNP Address [address] [facility] [address] [facility] [address] [place] [address] Phone Organization [facility] Phone Care Team Providers Care Insurance Loss Adjuster Name Role Phone Aida Sr CNP Primary Care Provider Unavaila ble Orin [employer]OM[employer] EX[employer]IVE PRODUCERAida Chronic Care Management Unavai lable Summary Purpose DataExchange Insurance Providers Payer name Policy type / Coverage type Covered constitution party ID Effective Begin Date Effective End Date [employer] Commercial Insurance [id number] Unknown Family History Family History data not found Allergies, Adverse Reactions, Alerts Substance Reaction Codes Entered Date Inactivated Date Status Sulfa Unknown 11/14/2022 No Inactive Date Ac tive Problems Condition Codes Effective Dates Condition St atus 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 ICD-9: 301.89 10/29/2023 Active HTN (hypertension) ICD-10: I10 ICD-9: 401.9 10/29/2023 Active Dementia ICD-10: F03.90 ICD-9: 294.20 09/17/2023 Active Depression, major, recurrent , 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 9 ICD-9: 296.30 05/21/2023 Active Suicidal ideation ICD-10: R45.851 ICD-9: V62.84 05/04/2023 Active Strain of right trapezius mu scle, initial encounter ICD-10: S46.811A ICD-9: 840.8 01/22/2023 Active Advanced care planning - to document end of life discussions Unknown 11/20/2022 Active Advance care planning ICD-10: Z71.89 ICD-9: V65.49 11/20/2022 Active Vitamin D deficiency ICD-10: E55.9 ICD-9: 268.9 11/20/2022 Active Medications Medication Codes Instructions Start Date Stop Date Status Fill Instructions divalproex ER 250 mg tablet,extended release 24 hr RxNorm: 2840399 TAKE 1 TABLET BY MOUTH AT BEDTIME HAZARDOUS DRUG-DOUBLE GLOVE 10/21/19 24 048 Active CYCLE FILL REFILL REQUEST FOR CYCLE FILL THAT STARTS 11/08/2023. risperidone 1 mg tablet RxNorm: 221229 Take 1 Tablet(s) Oral BID 10/21/19 24 024 Inactive CYCLE FILL REFILL REQUEST FOR CYCLE FILL THAT STARTS 11/08/2023. Tylenol Extra Strength 500 mg tablet RxNorm: 296357 Take 2 Tablet(s) Oral BID as needed 09/13/19 24 024 Inactive trazodone 50 mg tablet RxNorm: 029651 Take 1 Tablet(s) Oral QHS every night at bedtime 09/13/19 24 024 Inactive Senexon-S 8.6 mg-50 mg tablet RxNorm: 1559081 Take 1 Tablet(s) Oral BID as needed 09/13/19 24 025 Inactive sertraline 100 mg tablet RxNorm: 595504 Take 1.5 Tablet(s) Oral QD 09/13/19 24 024 Inactive Pain Reliever Plus 250 mg-250 mg-65 mg tablet RxNorm: 674746 Take 2 Tablet(s) Oral QD as needed 09/13/19 24 Inactive acetaminophen 500 mg tablet RxNorm: 450483 Take 2 Tablet(s) Oral BID as needed 09/13/19 24 024 Inactive quetiapine 100 mg tablet RxNorm: 373203 Take 1.5 Tablet(s) Oral HS at bed time 09/13/19 24 024 Inactive sertraline 100 mg tablet RxNorm: 765017 Take 1 Tablet(s) Oral QD 07/29/19 Inactive Please authorize cycle refill. Thanks. acetaminophen 500 mg tablet RxNorm: 092037 Take 2 Tablet(s) Oral BID as needed 07/20/19 24 Inactive acetaminophen 500 mg tablet RxNorm: 203601 Take 2 Tablet(s) Oral BID as needed 07/20/19 Inactive sertraline 100 mg tablet RxNorm: 136922 Take 1 Tablet(s) Oral QD 07/13/19 024 Inactive donepezil 5 mg tablet RxNorm: 863022 TAKE ONE-HALF TABLET (2.5MG) BY MOUTH ONCE DAILY 07/05/20 023 Inactive Cycle refill request. Cycle restarts (07/19/23). risperidone 1 mg tablet RxNorm: 363813 Take 1 Tablet(s) Oral HS at bed time 06/25/20 024 Inactive trazodone 50 mg tablet RxNorm: 107380 Take 1 Tablet(s) Oral QHS every night at bedtime as needed 06/25/20 23 024 Inactive quetiapine 25 mg tablet RxNorm: 349787 Take 1 Tablet(s) Oral Q4H every four hours as needed 06/25/20 23 024 Inactive Senna-S 8.6 mg-50 mg tablet RxNorm: 859704 Take 1 Tablet(s) Oral BID as needed 06/25/20 23 023 Inactive trazodone 50 mg tablet RxNorm: 598861 Take 1 Tablet(s) Oral QHS every night at bedtime as needed 06/25/20 023 Inactive Senna-S 8.6 mg-50 mg tablet RxNorm: 123746 Take 1 Tablet(s) Oral BID as needed 06/25/20 024 Inactive acetaminophen 500 mg tablet RxNorm: 877648 Take 2 Tablet(s) Oral BID as needed 06/18/20 024 Inactive acetaminophen 500 mg tablet RxNorm: 410963 Take 2 Tablet(s) Oral BID as needed 06/18/20 023 Inactive Excedrin Extra Strength 250 mg-250 mg-65 mg tablet RxNorm: 806270 Take 2 Tablet(s) Oral QD as needed 06/18/20 Inactive Excedrin Extra Strength 250 mg-250 mg-65 mg tablet RxNorm: 357241 Take 2 Tablet(s) Oral QD as needed 06/18/20 024 Inactive risperidone 1 mg tablet RxNorm: 215131 Take 1 Tablet(s) Oral BID 06/04/20 023 Inactive quetiapine 25 mg tablet RxNorm: 214244 Take 1 Tablet(s) Oral BID as needed 06/04/20 023 Inactive trazodone 50 mg tablet RxNorm: 847101 Take 1 Tablet(s) Oral QHS every night at bedtime 06/04/20 023 Inactive donepezil 10 mg tablet RxNorm: 191553 Take 1 Tablet(s) Oral QD 06/04/20 024 Inactive risperidone 1 mg tablet RxNorm: 225272 Take 1 Tablet(s) Oral BID as needed 06/04/20 023 Inactive Senexon-S 8.6 mg-50 mg tablet RxNorm: 1634961 Take 1 Tablet(s) Oral BID 06/03/20 023 Inactive Please authorize quantity 90 day supply with PRN refills for assisted living patient. Their cycle restarts 06/14/23. Thank you! memantine 5 mg tablet RxNorm: 815383 TAKE ONE-HALF TABLET (2.5MG) BY MOUTH TWICE DAILY 06/03/20 023 Inactive Please authorize quantity 90 day supply with PRN refills for assisted living patient. Their cycle restarts 06/14/23. Thank you! divalproex 125 mg capsule,delayed release sprinkle RxNorm: 0502893 TAKE 4 CAPSULES (500MG) BY MOUTH AT BEDTIME 06/03/20 024 Inactive Please authorize quantity 90 day supply with PRN refills for assisted living patient. Their cycle restarts 06/14/23. Thank you! sertraline 50 mg tablet RxNorm: 068641 Take 1 Tablet(s) Oral QD 06/03/20 024 Inactive Please authorize quantity 90 day supply with PRN refills for assisted living patient. Their cycle restarts 06/14/23. Thank you! naproxen 500 mg tablet RxNorm: 684426 Take 1 Tablet(s) Oral BID 01/23/20 23 023 Inactive naproxen 500 mg tablet RxNorm: 520281 Take 1 Tablet(s) Oral BID 01/23/20 23 023 Inactive naproxen 500 mg tablet RxNorm: 562460 Take 1 Tablet(s) Oral BID 01/23/20 23 023 Inactive mirtazapine 15 mg tablet RxNorm: 825079 Take 1 Tablet(s) Oral HS at bed time 01/01/20 023 Inactive CYCLE FILL REQUEST FOR CYCLE THAT STARTS 01/04/2023 escitalopram 10 mg tablet RxNorm: 165154 Take 1 Tablet(s) Oral QAM every morning 12/14/19 23 023 Inactive Cycle refill request. Cycle restarts (01/04/23). cholecalciferol (vitamin D3) 50 mcg (2,000 unit) tablet RxNorm: 763179 Take 1 Tablet(s) Oral QAM every morning 12/14/19 23 023 Inactive Cycle refill request. Cycle restarts (01/04/23). melatonin 10 mg sublingual tablet RxNorm: 8441351 TAKE 1 TABLET BY MOUTH AT BEDTIME NOTE DOSAGE/STRENGTH* 12/14/19 23 023 Inactive Cycle refill request. Cycle restarts (01/04/23). rivastigmine 1.5 mg capsule RxNorm: 448018 Take 1 Capsule(s) Oral BID 12/14/19 23 023 Inactive Cycle refill request. Cycle restarts (01/04/23). quetiapine 100 mg tablet RxNorm: 233628 Take 1 Tablet(s) Oral HS at bed time 12/14/19 23 023 Inactive Cycle refill request. Cycle restarts (01/04/23). levothyroxine 50 mcg tablet RxNorm: 456096 TAKE 1 TABLET BY MOUTH ONCE DAILY BEFORE BREAKFAST 12/14/19 23 023 Inactive Cycle refill request. Cycle restarts (01/04/23). amlodipine 5 mg tablet RxNorm: 094300 Take 1 Tablet(s) Oral QAM every morning 12/14/19 23 023 Inactive Cycle refill request. Cycle restarts (01/04/23). buspirone 15 mg tablet RxNorm: 709152 Take 1 Tablet(s) Oral BID 12/14/19 23 023 Inactive Cycle refill request. Cycle restarts (01/04/23). amitriptyline 10 mg tablet RxNorm: 921289 Take 1 Tablet(s) Oral HS at bed time 12/14/19 23 023 Inactive Cycle refill request. Cycle restarts (01/04/23). levofloxacin 500 mg tablet RxNorm: 529573 Take 1 Tablet(s) Oral QD 11/24/19 23 023 Inactive levofloxacin 500 mg tablet RxNorm: 564534 Take 1 Tablet(s) Oral QD 11/24/19 23 023 Inactive levothyroxine 50 mcg tablet RxNorm: 202368 Take 1 Tablet(s) Oral QD before Breakfast 11/18/19 23 023 Inactive amitriptyline 10 mg tablet RxNorm: 894535 Take 1 Tablet(s) Oral QHS every night at bedtime 11/18/19 23 023 Inactive acetaminophen 500 mg tablet RxNorm: 678341 2 Tablet(s) Oral TID as needed 11/18/19 023 Inactive amlodipine 5 mg tablet RxNorm: 614875 Take 1 Tablet(s) Oral QAM every morning 11/18/19 023 Inactive melatonin 5 mg tablet RxNorm: 247743 Give 1 Tablet(s) Oral QHS every night at bedtime 11/18/19 023 Inactive buspirone 15 mg tablet RxNorm: 361624 Take 1 Tablet(s) Oral BID 11/18/19 023 Inactive Seroquel 25 mg tablet RxNorm: 974505 Take 1 Tablet(s) Oral QHS every night at bedtime 11/18/19 023 Inactive cholecalciferol (vitamin D3) 50 mcg (2,000 unit) tablet RxNorm: 248176 Take 1 Tablet(s) Oral QD 11/18/19 023 Inactive rivastigmine 1.5 mg capsule RxNorm: 893851 Take 2 Capsule(s) Oral BID 11/18/19 023 Inactive mirtazapine 15 mg tablet RxNorm: 076629 Take 1 Tablet(s) Oral QHS every night at bedtime 11/18/19 023 Inactive aspirin-acetaminoph en-caffeine 250 mg-250 mg-65 mg tablet RxNorm: 068473 Take 2 Tablet(s) Oral QD as needed 11/18/19 023 Inactive escitalopram 10 mg tablet RxNorm: 697361 Take 1 Tablet(s) Oral QD 11/18/19 023 Inactive Medication Administered No Medication Administered data Immunizations Vaccine Codes Dose Date Status Influenza CVX: 205 1.0 04/06/2022 Covid-19 ([employer] mR NA, LNP-S, PF, 30 mcg/0.3 mL [...] 33 1.0 09/04/2000 Vital Signs Date Vital 10/29/2023 Blood Pressure 1: 140/73 Code: 8480-6 Heart Rate 1: 74 bpm Code: 8867-4 Respiratory Rate: 17 bpm Temperature: 36.3 (C) / 97.3 (F) Reason For Visit No Reason For Visit data Encounters Encounter Performer Location Location Address Codes Date ([address]) Home or Residence Visit Est Pt - Moderate Level, 40 mins Diagnosis: HTN (hypertension)[ICD 10: I10] 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] Aida Sr [facility] at [address] [address] CPT-4: 70474 10/29/2023 Plan of Care Planned Activity Notes Codes Status Date Patient Education: Patient Medication Summary Completed 10/29/2023 Patient Education: Influenza Complet ed 10/29/2023 Appointment: Aida Sr WPtel: [address] [facility] [address] F/U 09/17/2023 Appointment: Aida Sr WPtel: [address] [id number] [place] F/U 07/23/2023 Appointment: Aida Sr WPtel: [address] [id number] [place] F/U 06/25/2023 Appointment: Bam Frey: [address] [place] [address] [id number] [place] SDV 01/22/2023 Appointment: Aida Sr WPtel: [address] [place] [address] [id number] NPAWV 11/20/2022 Referral: General Psychiatrist Referral Patient/Family Scheduling Appointment Referral: [facility] Home Visits WPtel: [address], [address] [id number] Referral Order Note Incomplete Instructions Comment Date Elderly female residing in [facility] assisted living at [facility] in [place]. 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 Follows with psych as directed. Monitor for hallucinations, delusions, anger outbursts or physical altercations, and free floating anxiety. HTN (hypertension) BP 140/73, norvasc 5mg qd. Care plan: Routinely monitor blood pressures to follow trends. Goal is less than 150/90. Watch for side effects to medications and for over treatment, which can cause hypotension. . 10/29/2023
--- OUTSIDE RECORDS SUMMARY | 2024-09-10 16:17 | XMS_ITS | CCD ---
Author Organization Unknown Care Team Providers Care Cigar Making Supervisor Name Role Phone Orin GARCIA, Aida Primary Care Provider Unavaila ble Aida Sr CNP Chronic Care Management Unavai lable Summary Purpose DataExchange Insurance Providers Payer name Policy type / Coverage type Covered libertarian ID Effective Begin Date Effective End Date [employer] Commercial Insurance [id number] Unknown Family History Family History data not found Allergies, Adverse Reactions, Alerts Substance Reaction Codes Entered Date Inactivated Date Status Sulfa Unknown 11/14/2022 No Inactive Date Ac tive Problems Condition Codes Effective Dates Condition St atus Dementia ICD-10: F03.90 ICD-9: 294.20 06/25/2023 Active HTN (hypertension) ICD-10: I10 ICD-9: 401.9 06/25/2023 Active Hypothyroid ICD-10: E03.9 ICD-9: 244.9 06/25/2023 Active Insomnia ICD-10: G47.00 ICD-9: 780.52 06/25/2023 Active Anxiety ICD-10: F41.9 ICD-9: 300.00 06/04/2023 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 9 ICD-9: 296.30 05/21/2023 Active Suicidal ideation ICD-10: R45.851 ICD-9: V62.84 05/04/2023 Active Strain of right trapezius mu scle, initial encounter ICD-10: S46.811A ICD-9: 840.8 01/22/2023 Active UTI (urinary tract infection) ICD-10: N3 9.0 ICD-9: 599.0 12/11/2022 Active Advanced care planning - to document end of life discussions Unknown 11/20/2022 Active Advance care planning ICD-10: Z71.89 ICD-9: V65.49 11/20/2022 Active Vitamin D deficiency ICD-10: E55.9 ICD-9: 268.9 11/20/2022 Active Medications Medication Codes Instructions Start Date Stop Date Status Fill Instructions risperidone 1 mg tablet RxNorm: 301074 Take 1 Tablet(s) Oral HS at bed time 06/25/20 024 Inactive trazodone 50 mg tablet RxNorm: 819114 Take 1 Tablet(s) Oral QHS every night at bedtime as needed 06/25/20 024 Inactive quetiapine 25 mg tablet RxNorm: 799698 Take 1 Tablet(s) Oral Q4H every four hours as needed 06/25/20 024 Inactive Senna-S 8.6 mg-50 mg tablet RxNorm: 871658 Take 1 Tablet(s) Oral BID as needed 06/25/20 023 Inactive trazodone 50 mg tablet RxNorm: 961282 Take 1 Tablet(s) Oral QHS every night at bedtime as needed 06/25/20 023 Inactive Senna-S 8.6 mg-50 mg tablet RxNorm: 761858 Take 1 Tablet(s) Oral BID as needed 06/25/20 024 Inactive acetaminophen 500 mg tablet RxNorm: 537829 Take 2 Tablet(s) Oral BID as needed 06/18/20 024 Inactive Excedrin Extra Strength 250 mg-250 mg-65 mg tablet RxNorm: 861169 Take 2 Tablet(s) Oral QD as needed 06/18/20 024 Inactive acetaminophen 500 mg tablet RxNorm: 503531 Take 2 Tablet(s) Oral BID as needed 06/18/20 23 023 Inactive Excedrin Extra Strength 250 mg-250 mg-65 mg tablet RxNorm: 124078 Take 2 Tablet(s) Oral QD as needed 06/18/20 023 Inactive donepezil 10 mg tablet RxNorm: 338802 Take 1 Tablet(s) Oral QD 06/04/20 024 Inactive risperidone 1 mg tablet RxNorm: 787020 Take 1 Tablet(s) Oral BID 06/04/20 023 Inactive quetiapine 25 mg tablet RxNorm: 149921 Take 1 Tablet(s) Oral BID as needed 06/04/20 023 Inactive trazodone 50 mg tablet RxNorm: 386582 Take 1 Tablet(s) Oral QHS every night at bedtime 06/04/20 023 Inactive risperidone 1 mg tablet RxNorm: 432339 Take 1 Tablet(s) Oral BID as needed 06/04/20 023 Inactive divalproex 125 mg capsule,delayed release sprinkle RxNorm: 8992945 TAKE 4 CAPSULES (500MG) BY MOUTH AT BEDTIME 06/03/20 024 Inactive Please authorize quantity 90 day supply with PRN refills for assisted living patient. Their cycle restarts 06/14/23. Thank you! sertraline 50 mg tablet RxNorm: 610203 Take 1 Tablet(s) Oral QD 06/03/20 024 Inactive Please authorize quantity 90 day supply with PRN refills for assisted living patient. Their cycle restarts 06/14/23. Thank you! Senexon-S 8.6 mg-50 mg tablet RxNorm: 7221131 Take 1 Tablet(s) Oral BID 06/03/20 023 Inactive Please authorize quantity 90 day supply with PRN refills for assisted living patient. Their cycle restarts 06/14/23. Thank you! memantine 5 mg tablet RxNorm: 435920 TAKE ONE-HALF TABLET (2.5MG) BY MOUTH TWICE DAILY 06/03/20 023 Inactive Please authorize quantity 90 day supply with PRN refills for assisted living patient. Their cycle restarts 06/14/23. Thank you! naproxen 500 mg tablet RxNorm: 105176 Take 1 Tablet(s) Oral BID 01/23/20 023 Inactive naproxen 500 mg tablet RxNorm: 138224 Take 1 Tablet(s) Oral BID 01/23/20 23 023 Inactive naproxen 500 mg tablet RxNorm: 701877 Take 1 Tablet(s) Oral BID 01/23/20 23 023 Inactive mirtazapine 15 mg tablet RxNorm: 273619 Take 1 Tablet(s) Oral HS at bed time 01/01/20 023 Inactive CYCLE FILL REQUEST FOR CYCLE THAT STARTS 01/04/2023 escitalopram 10 mg tablet RxNorm: 879096 Take 1 Tablet(s) Oral QAM every morning 12/14/19 023 Inactive Cycle refill request. Cycle restarts (01/04/23). cholecalciferol (vitamin D3) 50 mcg (2,000 unit) tablet RxNorm: 303409 Take 1 Tablet(s) Oral QAM every morning 12/14/19 23 023 Inactive Cycle refill request. Cycle restarts (01/04/23). melatonin 10 mg sublingual tablet RxNorm: 7900031 TAKE 1 TABLET BY MOUTH AT BEDTIME NOTE DOSAGE/STRENGTH* 12/14/19 023 Inactive Cycle refill request. Cycle restarts (01/04/23). rivastigmine 1.5 mg capsule RxNorm: 556167 Take 1 Capsule(s) Oral BID 12/14/19 023 Inactive Cycle refill request. Cycle restarts (01/04/23). quetiapine 100 mg tablet RxNorm: 409285 Take 1 Tablet(s) Oral HS at bed time 12/14/19 23 023 Inactive Cycle refill request. Cycle restarts (01/04/23). levothyroxine 50 mcg tablet RxNorm: 842369 TAKE 1 TABLET BY MOUTH ONCE DAILY BEFORE BREAKFAST 12/14/19 23 023 Inactive Cycle refill request. Cycle restarts (01/04/23). amlodipine 5 mg tablet RxNorm: 676555 Take 1 Tablet(s) Oral QAM every morning 12/14/19 23 023 Inactive Cycle refill request. Cycle restarts (01/04/23). buspirone 15 mg tablet RxNorm: 236807 Take 1 Tablet(s) Oral BID 12/14/19 23 023 Inactive Cycle refill request. Cycle restarts (01/04/23). amitriptyline 10 mg tablet RxNorm: 356405 Take 1 Tablet(s) Oral HS at bed time 12/14/19 23 023 Inactive Cycle refill request. Cycle restarts (01/04/23). levofloxacin 500 mg tablet RxNorm: 537525 Take 1 Tablet(s) Oral QD 11/24/19 23 023 Inactive levofloxacin 500 mg tablet RxNorm: 566492 Take 1 Tablet(s) Oral QD 11/24/19 23 023 Inactive levothyroxine 50 mcg tablet RxNorm: 089996 Take 1 Tablet(s) Oral QD before Breakfast 11/18/19 23 023 Inactive amitriptyline 10 mg tablet RxNorm: 435699 Take 1 Tablet(s) Oral QHS every night at bedtime 11/18/19 23 023 Inactive acetaminophen 500 mg tablet RxNorm: 113543 2 Tablet(s) Oral TID as needed 11/18/19 23 023 Inactive amlodipine 5 mg tablet RxNorm: 732079 Take 1 Tablet(s) Oral QAM every morning 11/18/19 23 023 Inactive melatonin 5 mg tablet RxNorm: 427539 Give 1 Tablet(s) Oral QHS every night at bedtime 11/18/19 023 Inactive buspirone 15 mg tablet RxNorm: 156859 Take 1 Tablet(s) Oral BID 11/18/19 023 Inactive Seroquel 25 mg tablet RxNorm: 319185 Take 1 Tablet(s) Oral QHS every night at bedtime 11/18/19 23 023 Inactive cholecalciferol (vitamin D3) 50 mcg (2,000 unit) tablet RxNorm: 671112 Take 1 Tablet(s) Oral QD 11/18/19 23 023 Inactive rivastigmine 1.5 mg capsule RxNorm: 564802 Take 2 Capsule(s) Oral BID 11/18/19 023 Inactive mirtazapine 15 mg tablet RxNorm: 444905 Take 1 Tablet(s) Oral QHS every night at bedtime 11/18/19 023 Inactive aspirin-acetaminoph en-caffeine 250 mg-250 mg-65 mg tablet RxNorm: 343643 Take 2 Tablet(s) Oral QD as needed 11/18/19 023 Inactive escitalopram 10 mg tablet RxNorm: 131901 Take 1 Tablet(s) Oral QD 11/18/19 023 Inactive Medication Administered No Medication Administered data Immunizations Vaccine Codes Dose Date Status Influenza CVX: 205 1.0 04/06/2022 Covid-19 ([employer] mR NA, LNP-S, PF, 30 mcg/0.3 mL [...] WPtel: [address], [address] [id number] Referral Order Note Incomplete Instructions Comment Date Elderly female residing in [facility] assisted living at [facility]. PMHx: dementia, cluster B personality traits, depression, hypothyroidism, HTN, anxiety, suicidal ideationsPOLST: FULL CODEFred Anatoly-spouse, [place]: Scotty-therapist: weekly calls usually on :1 visits 3 times weekly 01/28/2024
--- OUTSIDE RECORDS SUMMARY | 2024-09-10 16:17 | XMS_ITS | CCD ---
Author Name Aida Sr CNP Address [address] [place] [address] Phone Organization [facility] Phone Care Team Providers Care Composing Machine Operator Name Role Phone Orin RADHAAida Primary Care Provider Unavaila ble Orin RADHAAida Chronic Care Management Unavai lable Summary Purpose DataExchange Insurance Providers Payer name Policy type / Coverage type Covered green party ID Effective Begin Date Effective End Date [employer] Commercial Insurance [id number] Unknown Family history Runs in the family Diagnosis Age At Onset No Known Diseases N/A Social History Social History Element Codes Description Effec tive Dates Marital status Unknown 01/28/2024 Living arrangements Unknown Memory Care 01/28/[address]: 439739694 Never smoker 01/[address]: 096225726 No Alcohol Consum ption 01/28/2024 Sexually Active? 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 9 ICD-9: 296.30 01/28/2024 Resolved Spider bite wound ICD-10: T63.301A ICD-9: 989.5 01/28/2024 Resolved Strain of right trapezius mu scle, initial encounter ICD-10: S46.811A ICD-9: 840.8 01/28/2024 Resolved UTI (urinary tract infection) ICD-10: N3 9.0 ICD-9: 599.0 12/31/2023 Active Depression, major, recurrent, mild ICD-1 0: [...] Fill Instructions risperidone 1 mg tablet RxNorm: 873737 Take 1 Tablet(s) Oral HS at bed time 02/22/20 24 024 Inactive acetaminophen 500 mg tablet RxNorm: 111068 Take 2 Tablet(s) Oral TID as needed 02/22/20 No Stop Date Active acetaminophen 500 mg tablet RxNorm: 423857 Take 2 Tablet(s) Oral TID as needed 02/22/20 24 024 Inactive sertraline 100 mg tablet RxNorm: 060896 Take 1 Tablet(s) Oral QD Take w/ 50mg tablet 01/27/20 24 025 Active sertraline 50 mg tablet RxNorm: 146121 Take 1 Tablet(s) Oral QD Take w/ 100mg tablet 01/27/20 24 025 Active acetaminophen 500 mg tablet RxNorm: 739403 Take 2 Tablet(s) Oral TID as needed 01/27/20 24 024 Inactive amlodipine 5 mg tablet RxNorm: 684591 Take 1 Tablet(s) Oral QAM every morning 01/09/20 24 048 Active REFILL REQUEST FOR CYCLE THAT BEGINS 01/30, THANK YOU! levothyroxine 50 mcg tablet RxNorm: 374148 Take 1 Tablet(s) Oral QD BEFORE BREAKFAST 01/09/20 24 048 Active REFILL REQUEST FOR CYCLE THAT BEGINS 01/30, THANK YOU! cholecalciferol (vitamin D3) 50 mcg (2,000 unit) tablet RxNorm: 742040 Take 1 Tablet(s) Oral QAM every morning 01/09/20 24 048 Active REFILL REQUEST FOR CYCLE THAT BEGINS 01/30, THANK YOU! risperidone 0.5 mg tablet RxNorm: 311935 Take 1 Tablet(s) Oral BID 01/09/20 24 024 Inactive REFILL REQUEST FOR CYCLE THAT BEGINS 01/30, THANK YOU! sertraline 50 mg tablet RxNorm: 832000 TAKE 1 TABLET BY MOUTH ONCE DAILY. TAKE ALONG WITH 100 MG TABLET DAILY FOR A TOTAL DOSE OF 150 MG 01/09/20 24 024 Inactive REFILL REQUEST FOR CYCLE THAT BEGINS 01/30, THANK YOU! risperidone 0.5 mg tablet RxNorm: 194214 Take 1 Tablet(s) Oral BID 01/07/20 24 024 Inactive levofloxacin 500 mg tablet RxNorm: 470228 Take 1 Tablet(s) Oral QD 12/31/19 24 Inactive acetaminophen 500 mg tablet RxNorm: 401731 Take 2 Tablet(s) Oral TID 12/31/19 24 024 Inactive levofloxacin 500 mg tablet RxNorm: 109453 Take 1 Tablet(s) Oral QD 12/31/19 24 024 Inactive divalproex ER 250 mg tablet,extended release 24 hr RxNorm: 0665379 TAKE 1 TABLET BY MOUTH AT BEDTIME HAZARDOUS DRUG-DOUBLE GLOVE 10/21/19 24 048 Active CYCLE FILL REFILL REQUEST FOR CYCLE FILL THAT STARTS 11/08/2023. risperidone 1 mg tablet RxNorm: 547266 Take 1 Tablet(s) Oral BID 10/21/19 24 024 Inactive CYCLE FILL REFILL REQUEST FOR CYCLE FILL THAT STARTS 11/08/2023. Senexon-S 8.6 mg-50 mg tablet RxNorm: 7072059 Take 1 Tablet(s) Oral BID as needed 09/13/19 24 025 Inactive acetaminophen 500 mg tablet RxNorm: 664364 Take 2 Tablet(s) Oral BID as needed 09/13/19 24 024 Inactive Tylenol Extra Strength 500 mg tablet RxNorm: 904985 Take 2 Tablet(s) Oral BID as needed 09/13/19 24 024 Inactive trazodone 50 mg tablet RxNorm: 508807 Take 1 Tablet(s) Oral QHS every night at bedtime 09/13/19 24 024 Inactive quetiapine 100 mg tablet RxNorm: 610531 Take 1.5 Tablet(s) Oral HS at bed time 09/13/19 24 024 Inactive sertraline 100 mg tablet RxNorm: 450337 Take 1.5 Tablet(s) Oral QD 09/13/19 24 024 Inactive Pain Reliever Plus 250 mg-250 mg-65 mg tablet RxNorm: 073742 Take 2 Tablet(s) Oral QD as needed 09/13/19 24 024 Inactive sertraline 100 mg tablet RxNorm: 793683 Take 1 Tablet(s) Oral QD 07/29/19 024 Inactive Please authorize cycle refill. Thanks. acetaminophen 500 mg tablet RxNorm: 674982 Take 2 Tablet(s) Oral BID as needed 07/20/19 24 024 Inactive acetaminophen 500 mg tablet RxNorm: 093543 Take 2 Tablet(s) Oral BID as needed 07/20/19 024 Inactive sertraline 100 mg tablet RxNorm: 948833 Take 1 Tablet(s) Oral QD 07/13/19 024 Inactive donepezil 5 mg tablet RxNorm: 867092 TAKE ONE-HALF TABLET (2.5MG) BY MOUTH ONCE DAILY 07/05/20 Inactive Cycle refill request. Cycle restarts (07/19/23). risperidone 1 mg tablet RxNorm: 227884 Take 1 Tablet(s) Oral HS at bed time 06/25/20 024 Inactive trazodone 50 mg tablet RxNorm: 008109 Take 1 Tablet(s) Oral QHS every night at bedtime as needed 06/25/20 024 Inactive quetiapine 25 mg tablet RxNorm: 293688 Take 1 Tablet(s) Oral Q4H every four hours as needed 06/25/20 23 024 Inactive Senna-S 8.6 mg-50 mg tablet RxNorm: 377112 Take 1 Tablet(s) Oral BID as needed 06/25/20 23 023 Inactive trazodone 50 mg tablet RxNorm: 083845 Take 1 Tablet(s) Oral QHS every night at bedtime as needed 06/25/20 23 023 Inactive Senna-S 8.6 mg-50 mg tablet RxNorm: 940217 Take 1 Tablet(s) Oral BID as needed 06/25/20 23 024 Inactive acetaminophen 500 mg tablet RxNorm: 644115 Take 2 Tablet(s) Oral BID as needed 06/18/20 23 024 Inactive acetaminophen 500 mg tablet RxNorm: 106684 Take 2 Tablet(s) Oral BID as needed 12/11 023 Inactive Excedrin Extra Strength 250 mg-250 mg-65 mg tablet RxNorm: 971004 Take 2 Tablet(s) Oral QD as needed 06/18/20 023 Inactive Excedrin Extra Strength 250 mg-250 mg-65 mg tablet RxNorm: 565458 Take 2 Tablet(s) Oral QD as needed 06/18/20 024 Inactive risperidone 1 mg tablet RxNorm: 355157 Take 1 Tablet(s) Oral BID 06/04/20 023 Inactive quetiapine 25 mg tablet RxNorm: 338772 Take 1 Tablet(s) Oral BID as needed 06/04/20 023 Inactive trazodone 50 mg tablet RxNorm: 243706 Take 1 Tablet(s) Oral QHS every night at bedtime 06/04/20 023 Inactive donepezil 10 mg tablet RxNorm: 203241 Take 1 Tablet(s) Oral QD 06/04/20 024 Inactive risperidone 1 mg tablet RxNorm: 678624 Take 1 Tablet(s) Oral BID as needed 06/04/20 023 Inactive Senexon-S 8.6 mg-50 mg tablet RxNorm: 4388444 Take 1 Tablet(s) Oral BID 06/03/20 023 Inactive Please authorize quantity 90 day supply with PRN refills for assisted living patient. Their cycle restarts 06/14/23. Thank you! memantine 5 mg tablet RxNorm: 720657 TAKE ONE-HALF TABLET (2.5MG) BY MOUTH TWICE DAILY 06/03/20 023 Inactive Please authorize quantity 90 day supply with PRN refills for assisted living patient. Their cycle restarts 06/14/23. Thank you! divalproex 125 mg capsule,delayed release sprinkle RxNorm: 4022527 TAKE 4 CAPSULES (500MG) BY MOUTH AT BEDTIME 06/03/20 024 Inactive Please authorize quantity 90 day supply with PRN refills for assisted living patient. Their cycle restarts 06/14/23. Thank you! sertraline 50 mg tablet RxNorm: 747900 Take 1 Tablet(s) Oral QD 06/03/20 23 024 Inactive Please authorize quantity 90 day supply with PRN refills for assisted living patient. Their cycle restarts 06/14/23. Thank you! naproxen 500 mg tablet RxNorm: 379102 Take 1 Tablet(s) Oral BID 01/23/20 23 023 Inactive naproxen 500 mg tablet RxNorm: 533671 Take 1 Tablet(s) Oral BID 01/23/20 023 Inactive naproxen 500 mg tablet RxNorm: 029365 Take 1 Tablet(s) Oral BID 01/23/20 023 Inactive mirtazapine 15 mg tablet RxNorm: 606861 Take 1 Tablet(s) Oral HS at bed time 01/01/20 023 Inactive CYCLE FILL REQUEST FOR CYCLE THAT STARTS 01/04/2023 escitalopram 10 mg tablet RxNorm: 223262 Take 1 Tablet(s) Oral QAM every morning 12/14/19 023 Inactive Cycle refill request. Cycle restarts (01/04/23). cholecalciferol (vitamin D3) 50 mcg (2,000 unit) tablet RxNorm: 768057 Take 1 Tablet(s) Oral QAM every morning 12/14/19 23 023 Inactive Cycle refill request. Cycle restarts (01/04/23). melatonin 10 mg sublingual tablet RxNorm: 7991832 TAKE 1 TABLET BY MOUTH AT BEDTIME NOTE DOSAGE/STRENGTH* 12/14/19 023 Inactive Cycle refill request. Cycle restarts (01/04/23). rivastigmine 1.5 mg capsule RxNorm: 536403 Take 1 Capsule(s) Oral BID 12/14/19 023 Inactive Cycle refill request. Cycle restarts (01/04/23). quetiapine 100 mg tablet RxNorm: 780142 Take 1 Tablet(s) Oral HS at bed time 12/14/19 23 023 Inactive Cycle refill request. Cycle restarts (01/04/23). levothyroxine 50 mcg tablet RxNorm: 860272 TAKE 1 TABLET BY MOUTH ONCE DAILY BEFORE BREAKFAST 12/14/19 23 023 Inactive Cycle refill request. Cycle restarts (01/04/23). amlodipine 5 mg tablet RxNorm: 874523 Take 1 Tablet(s) Oral QAM every morning 12/14/19 23 023 Inactive Cycle refill request. Cycle restarts (01/04/23). buspirone 15 mg tablet RxNorm: 938173 Take 1 Tablet(s) Oral BID 12/14/19 23 023 Inactive Cycle refill request. Cycle restarts (01/04/23). amitriptyline 10 mg tablet RxNorm: 640305 Take 1 Tablet(s) Oral HS at bed time 12/14/19 23 023 Inactive Cycle refill request. Cycle restarts (01/04/23). levofloxacin 500 mg tablet RxNorm: 100336 Take 1 Tablet(s) Oral QD 11/24/19 23 023 Inactive levofloxacin 500 mg tablet RxNorm: 733270 Take 1 Tablet(s) Oral QD 11/24/19 23 023 Inactive levothyroxine 50 mcg tablet RxNorm: 517727 Take 1 Tablet(s) Oral QD before Breakfast 11/18/19 23 023 Inactive amitriptyline 10 mg tablet RxNorm: 845764 Take 1 Tablet(s) Oral QHS every night at bedtime 11/18/19 23 023 Inactive acetaminophen 500 mg tablet RxNorm: 642774 2 Tablet(s) Oral TID as needed 11/18/19 23 023 Inactive amlodipine 5 mg tablet RxNorm: 776393 Take 1 Tablet(s) Oral QAM every morning 11/18/19 23 023 Inactive melatonin 5 mg tablet RxNorm: 764129 Give 1 Tablet(s) Oral QHS every night at bedtime 11/18/19 23 023 Inactive buspirone 15 mg tablet RxNorm: 038146 Take 1 Tablet(s) Oral BID 11/18/19 23 023 Inactive Seroquel 25 mg tablet RxNorm: 158689 Take 1 Tablet(s) Oral QHS every night at bedtime 11/18/19 023 Inactive cholecalciferol (vitamin D3) 50 mcg (2,000 unit) tablet RxNorm: 237630 Take 1 Tablet(s) Oral QD 11/18/19 023 Inactive rivastigmine 1.5 mg capsule RxNorm: 288832 Take 2 Capsule(s) Oral BID 11/18/19 023 Inactive mirtazapine 15 mg tablet RxNorm: 099868 Take 1 Tablet(s) Oral QHS every night at bedtime 11/18/19 023 Inactive aspirin-acetaminoph en-caffeine 250 mg-250 mg-65 mg tablet RxNorm: 040127 Take 2 Tablet(s) Oral QD as needed 11/18/19 023 Inactive escitalopram 10 mg tablet RxNorm: 991703 Take 1 Tablet(s) Oral QD 11/18/19 023 Inactive Medication Administered No Medication Administered data Immunizations Vaccine Codes Dose Date Status Influenza CVX: 205 1.0 04/06/2022 Covid-19 (Eveo mR NA, LNP-S, PF, 30 mcg/0.3 mL [...] 33 1.0 09/04/2000 Vital Signs Date Vital 02/25/2024 Blood Pressure 1: 139/72 Code: 8480-6 Heart Rate 1: 77 bpm Code: 8867-4 Respiratory Rate: 20 bpm Temperature: 36.3 (C) / 97.4 (F) Weight: 167 lbs 13 oz Code: 3141-9 Functional Status Functional / [...] Encounter Performer Location Location Address Codes Date (51959) Home or Residence Visit Est Pt - Moderate Level, 40 mins Diagnosis: Dementia[ICD10: F03.90] Diagnosis: HTN (hypertension)[IC D10: I10] Diagnosis: Insomnia[ICD10: G47.00] Aida Sr [facility] at [address] [address] CPT-4: 25588 02/25/2024 Plan of Care Planned Activity Notes Codes Status Date Patient Education: Patient Medication Summary Completed 02/25/2024 Patient Education: Influenza Complet ed 02/25/2024 Appointment: Aida Sr WPtel: [address] [place] [address] [id number] [place] F/U 12/31/2023 Appointment: Aida Sr WPtel: [address] [place] [address] [address] [id number] [place] F/U 09/17/2023 Appointment: Aida Sr WPtel: [address] [place] [address] [id number] [place] F/U 07/23/2023 Appointment: Aida Sr WPtel: [address] [place] [address] [id number] [place] F/U 06/25/2023 Appointment: Bam Frey: [address] [place], [place] [id number] [place] SDV 01/22/2023 Appointment: Aida Sr WPtel: [address] [place] [address] [id number] [place] NPAWV 11/20/2022 Referral: General Psychiatrist Referral Patient/Family Scheduling Appointment Referral: [facility]- [facility] n Home Visits WPtel: [address], [address] [id number] Referral Order Note Incomplete Instructions Comment Date Elderly female residing in [facility] assisted living at [facility]. PMHx: dementia, cluster B personality traits, depression, hypothyroidism, HTN, anxiety, suicidal ideationsPOLST: FULL CODEFred Anatoly-spouse, Skiz: November/-therapist: weekly calls usually on -:1 visits 3 times weekly 01/28/2024 HTN (hypertension) BP 139/72, norvasc 5mg qd. Care plan: Routinely monitor blood pressures to follow trends. Goal is less than 150/90. Watch for side effects to medications and for over treatment, which can cause hypotension. Insomnia depakote 250mg qHS risperidone 0.5mg BID. Monitor for difficulty sleeping, irritation, increased behaviors & daytime tiredness. Dementia donepezil 10mg qd, namenda 2.5mg BID. Safe in [facility]/ setting with 24 hour nursing supervision. Anticipate ongoing cognitive and physical decline with disease progression. Continue current care plan and reassessment in one month. Facility to update with any changes in the condition. . 02/25/2024
--- OUTSIDE RECORDS SUMMARY | 2024-09-10 16:19 | XMS_ITS | CCD ---
Author Organization Unknown Care Team Providers Care Manager Hematology Name Role Phone Orin GARCIA, Aida Primary Care Provider Unavaila ble Aida Sr CNP Chronic Care Management Unavai labotilia Summary Purpose DataExchange Insurance Providers Payer name Policy type / Coverage type Covered constitution party ID Effective Begin Date Effective End Date [employer] Commercial Insurance [id number] Unknown [id number] Family History Family History data not found Allergies, Adverse Reactions, Alerts Substance Reaction Codes Entered Date Inactivated Date Status Sulfa Unknown 11/14/2022 No Inactive Date Ac tive Problems Condition Codes Effective Dates Condition St atus Advanced care planning - to document end of life discussions Unknown 11/20/2022 Active Advance care planning ICD-10: Z71.89 ICD-9: V65.49 11/20/2022 Active Anxiety ICD-10: F41.9 ICD-9: 300.00 11/20/2022 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 ICD-9: 301.89 11/20/2022 Active Dementia ICD-10: F03.90 ICD-9: 294.20 11/20/2022 Active Depression, major, recurrent, 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 ICD-9: 296.31 11/20/2022 Active HTN (hypertension) ICD-10: I10 ICD-9: 401.9 11/20/2022 Active Hypothyroid ICD-10: E03.9 ICD-9: 244.9 11/20/2022 Active Suicidal ideation ICD-10: R45.851 ICD-9: V62.84 11/20/2022 Active Vitamin D deficiency ICD-10: E55.9 ICD-9: 268.9 11/20/2022 Active Medications Medication Codes Instructions Start Date Stop Date Status Fill Instructions levofloxacin 500 mg tablet RxNorm: 476311 Take 1 Tablet(s) Oral QD 3 023 Inactive levofloxacin 500 mg tablet RxNorm: 488557 Take 1 Tablet(s) Oral QD 3 023 Inactive levothyroxine 50 mcg tablet RxNorm: 279504 Take 1 Tablet(s) Oral QD before Breakfast 3 023 Inactive amitriptyline 10 mg tablet RxNorm: 146956 Take 1 Tablet(s) Oral QHS every night at bedtime 3 023 Inactive acetaminophen 500 mg tablet RxNorm: 533148 2 Tablet(s) Oral TID as needed 3 023 Inactive amlodipine 5 mg tablet RxNorm: 508681 Take 1 Tablet(s) Oral QAM every morning 3 023 Inactive melatonin 5 mg tablet RxNorm: 506694 Give 1 Tablet(s) Oral QHS every night at bedtime 3 023 Inactive buspirone 15 mg tablet RxNorm: 802296 Take 1 Tablet(s) Oral BID 3 023 Inactive Seroquel 25 mg tablet RxNorm: 419288 Take 1 Tablet(s) Oral QHS every night at bedtime 3 023 Inactive cholecalciferol (vitamin D3) 50 mcg (2,000 unit) tablet RxNorm: 108578 Take 1 Tablet(s) Oral QD 3 023 Inactive rivastigmine 1.5 mg capsule RxNorm: 897935 Take 2 Capsule(s) Oral BID 3 023 Inactive mirtazapine 15 mg tablet RxNorm: 995418 Take 1 Tablet(s) Oral QHS every night at bedtime 3 023 Inactive aspirin-acetaminoph en-caffeine 250 mg-250 mg-65 mg tablet RxNorm: 635735 Take 2 Tablet(s) Oral QD as needed 3 023 Inactive escitalopram 10 mg tablet RxNorm: 475780 Take 1 Tablet(s) Oral QD 3 023 Inactive Medication Administered No Medication Administered data Immunizations Vaccine Codes Dose Date Status Influenza CVX: 205 1.0 04/06/2022 Covid-19 ([employer] mR NA, LNP-S, PF, 30 mcg/0.3 mL [...] WPtel: [address], [address] [id number] Referral Order Note Incomplete Instructions Comment Date Elderly female residing in [facility] assisted living at [facility]. PMHx: dementia, cluster B personality traits, depression, hypothyroidism, HTN, anxiety, suicidal ideationsPOLST: FULL CODEFred Anatoly-spouse, Hodk: -therapist: weekly calls usually on :1 visits 3 times weekly 01/28/2024
--- OUTSIDE RECORDS SUMMARY | 2024-09-10 16:19 | XMS_ITS | CCD ---
Author Organization Unknown Care Team Providers Care Merchandise Flow Team Leader Name Role Phone Orin GARCIA, Aida Primary Care Provider Unavaila ble Aida Sr CNP Chronic Care Management Unavai lable Summary Purpose DataExchange Insurance Providers Payer name Policy type / Coverage type Covered green party ID Effective Begin Date Effective End Date [employer] 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 ICD-9: 301.89 01/18/2023 Active Dementia ICD-10: F03.90 ICD-9: 294.20 01/18/2023 Active Depression, major, recurrent, 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 ICD-9: 296.31 01/18/2023 Active Suicidal ideation ICD-10: R45.851 ICD-9: V62.84 01/18/2023 Active Anxiety ICD-10: F41.9 ICD-9: 300.00 01/15/2023 Active HTN (hypertension) ICD-10: I10 ICD-9: 401.9 [...] Fill Instructions naproxen 500 mg tablet RxNorm: 407731 Take 1 Tablet(s) Oral BID 01/23/20 023 Inactive naproxen 500 mg tablet RxNorm: 981094 Take 1 Tablet(s) Oral BID 01/23/20 023 Inactive naproxen 500 mg tablet RxNorm: 485290 Take 1 Tablet(s) Oral BID 01/23/20 023 Inactive mirtazapine 15 mg tablet RxNorm: 056295 Take 1 Tablet(s) Oral HS at bed time 01/01/20 023 Inactive CYCLE FILL REQUEST FOR CYCLE THAT STARTS 01/04/2023 escitalopram 10 mg tablet RxNorm: 597329 Take 1 Tablet(s) Oral QAM every morning 12/14/19 023 Inactive Cycle refill request. Cycle restarts (01/04/23). melatonin 10 mg sublingual tablet RxNorm: 2375803 TAKE 1 TABLET BY MOUTH AT BEDTIME NOTE DOSAGE/STRENGTH* 12/14/19 023 Inactive Cycle refill request. Cycle restarts (01/04/23). rivastigmine 1.5 mg capsule RxNorm: 630615 Take 1 Capsule(s) Oral BID 12/14/19 023 Inactive Cycle refill request. Cycle restarts (01/04/23). quetiapine 100 mg tablet RxNorm: 525296 Take 1 Tablet(s) Oral HS at bed time 12/14/19 23 023 Inactive Cycle refill request. Cycle restarts (01/04/23). buspirone 15 mg tablet RxNorm: 551038 Take 1 Tablet(s) Oral BID 12/14/19 023 Inactive Cycle refill request. Cycle restarts (01/04/23). amitriptyline 10 mg tablet RxNorm: 631121 Take 1 Tablet(s) Oral HS at bed time 12/14/19 023 Inactive Cycle refill request. Cycle restarts (01/04/23). cholecalciferol (vitamin D3) 50 mcg (2,000 unit) tablet RxNorm: 499290 Take 1 Tablet(s) Oral QAM every morning 12/14/19 23 023 Inactive Cycle refill request. Cycle restarts (01/04/23). levothyroxine 50 mcg tablet RxNorm: 805948 TAKE 1 TABLET BY MOUTH ONCE DAILY BEFORE BREAKFAST 12/14/19 23 023 Inactive Cycle refill request. Cycle restarts (01/04/23). amlodipine 5 mg tablet RxNorm: 520159 Take 1 Tablet(s) Oral QAM every morning 12/14/19 23 023 Inactive Cycle refill request. Cycle restarts (01/04/23). levofloxacin 500 mg tablet RxNorm: 543119 Take 1 Tablet(s) Oral QD 11/24/19 23 023 Inactive levofloxacin 500 mg tablet RxNorm: 428299 Take 1 Tablet(s) Oral QD 11/24/19 23 023 Inactive acetaminophen 500 mg tablet RxNorm: 923876 2 Tablet(s) Oral TID as needed 11/18/19 23 023 Inactive Seroquel 25 mg tablet RxNorm: 941057 Take 1 Tablet(s) Oral QHS every night at bedtime 11/18/19 23 023 Inactive aspirin-acetaminoph en-caffeine 250 mg-250 mg-65 mg tablet RxNorm: 990127 Take 2 Tablet(s) Oral QD as needed 11/18/19 23 023 Inactive levothyroxine 50 mcg tablet RxNorm: 806652 Take 1 Tablet(s) Oral QD before Breakfast 11/18/19 23 023 Inactive amitriptyline 10 mg tablet RxNorm: 354918 Take 1 Tablet(s) Oral QHS every night at bedtime 11/18/19 23 023 Inactive amlodipine 5 mg tablet RxNorm: 898776 Take 1 Tablet(s) Oral QAM every morning 11/18/19 23 023 Inactive melatonin 5 mg tablet RxNorm: 850512 Give 1 Tablet(s) Oral QHS every night at bedtime 11/18/19 023 Inactive buspirone 15 mg tablet RxNorm: 434600 Take 1 Tablet(s) Oral BID 11/18/19 023 Inactive cholecalciferol (vitamin D3) 50 mcg (2,000 unit) tablet RxNorm: 739536 Take 1 Tablet(s) Oral QD 11/18/19 023 Inactive rivastigmine 1.5 mg capsule RxNorm: 747912 Take 2 Capsule(s) Oral BID 11/18/19 023 Inactive mirtazapine 15 mg tablet RxNorm: 087188 Take 1 Tablet(s) Oral QHS every night at bedtime 11/18/19 023 Inactive escitalopram 10 mg tablet RxNorm: 505269 Take 1 Tablet(s) Oral QD 11/18/19 023 Inactive Medication Administered No Medication Administered data Immunizations Vaccine Codes Dose Date Status Influenza CVX: 205 1.0 04/06/2022 Covid-19 ([employer]ite[employer] mR NA, LNP-S, PF, 30 mcg/0.3 mL [...] WPtel: [address], [address] [id number] Referral Order Note Incomplete Instructions Comment Date Elderly female residing in [facility] assisted living at [facility]. PMHx: dementia, cluster B personality traits, depression, hypothyroidism, HTN, anxiety, suicidal ideationsPOLST: FULL CODEFred Anatoly-spouse, Kaqn: November/ham-therapist: weekly calls usually on :1 visits 3 times weekly 01/28/2024
--- OUTSIDE RECORDS SUMMARY | 2024-09-10 16:19 | XMS_ITS | CCD ---
Author Name Aida Sr CNP Address [address] [facility] [address] [facility] [address] [place] [address] Phone Organization [facility] Phone Care Team Providers Care Mma Fighter Name Role Phone Aida Sr CNP Primary Care Provider Unavaila ble Orin ORANGE PICKER MACHINE OPERATORAida Chronic Care Management Unavai lable Summary Purpose DataExchange Insurance Providers Payer name Policy type / Coverage type Covered constitution party ID Effective Begin Date Effective End Date StatSheet Commercial Insurance [id number] Unknown Family History Family History data not found Allergies, Adverse Reactions, Alerts Substance Reaction Codes Entered Date Inactivated Date Status Sulfa Unknown 11/14/2022 No Inactive Date Ac tive Problems Condition Codes Effective Dates Condition St atus HTN (hypertension) ICD-10: I10 ICD-9: 401.9 04/16/2023 Active Hypothyroid ICD-10: E03.9 ICD-9: 244.9 04/16/2023 Active Anxiety ICD-10: F41.9 ICD-9: 300.00 02/28/2023 Active [...] ideation ICD-10: R45.851 ICD-9: V62.84 01/18/2023 Active UTI (urinary tract infection) ICD-10: N3 9.0 ICD-9: 599.0 12/11/2022 Active Advanced care planning - to document end of life discussions Unknown 11/20/2022 Active Advance care planning ICD-10: Z71.89 ICD-9: V65.49 11/20/2022 Active Vitamin D deficiency ICD-10: E55.9 ICD-9: 268.9 11/20/2022 Active Medications Medication Codes Instructions Start Date Stop Date Status Fill Instructions naproxen 500 mg tablet RxNorm: 931711 Take 1 Tablet(s) Oral BID 01/23/20 023 Inactive naproxen 500 mg tablet RxNorm: 538857 Take 1 Tablet(s) Oral BID 01/23/20 023 Inactive naproxen 500 mg tablet RxNorm: 988441 Take 1 Tablet(s) Oral BID 01/23/20 023 Inactive mirtazapine 15 mg tablet RxNorm: 821468 Take 1 Tablet(s) Oral HS at bed time 01/01/20 047 Active CYCLE FILL REQUEST FOR CYCLE THAT STARTS 01/04/2023 escitalopram 10 mg tablet RxNorm: 395330 Take 1 Tablet(s) Oral QAM every morning 12/14/19 047 Active Cycle refill request. Cycle restarts (01/04/23). cholecalciferol (vitamin D3) 50 mcg (2,000 unit) tablet RxNorm: 562318 Take 1 Tablet(s) Oral QAM every morning 12/14/19 030 Active Cycle refill request. Cycle restarts (01/04/23). melatonin 10 mg sublingual tablet RxNorm: 1916533 TAKE 1 TABLET BY MOUTH AT BEDTIME NOTE DOSAGE/STRENGTH* 12/14/19 030 Active Cycle refill request. Cycle restarts (01/04/23). rivastigmine 1.5 mg capsule RxNorm: 804865 Take 1 Capsule(s) Oral BID 12/14/19 23 047 Active Cycle refill request. Cycle restarts (01/04/23). levothyroxine 50 mcg tablet RxNorm: 910424 TAKE 1 TABLET BY MOUTH ONCE DAILY BEFORE BREAKFAST 12/14/19 23 047 Active Cycle refill request. Cycle restarts (01/04/23). amlodipine 5 mg tablet RxNorm: 136325 Take 1 Tablet(s) Oral QAM every morning 12/14/19 23 047 Active Cycle refill request. Cycle restarts (01/04/23). buspirone 15 mg tablet RxNorm: 484980 Take 1 Tablet(s) Oral BID 12/14/19 23 047 Active Cycle refill request. Cycle restarts (01/04/23). quetiapine 100 mg tablet RxNorm: 477827 Take 1 Tablet(s) Oral HS at bed time 12/14/19 23 023 Inactive Cycle refill request. Cycle restarts (01/04/23). amitriptyline 10 mg tablet RxNorm: 898603 Take 1 Tablet(s) Oral HS at bed time 12/14/19 23 023 Inactive Cycle refill request. Cycle restarts (01/04/23). levofloxacin 500 mg tablet RxNorm: 554481 Take 1 Tablet(s) Oral QD 11/24/19 23 023 Inactive levofloxacin 500 mg tablet RxNorm: 747687 Take 1 Tablet(s) Oral QD 11/24/19 23 023 Inactive acetaminophen 500 mg tablet RxNorm: 998647 2 Tablet(s) Oral TID as needed 11/18/19 23 024 Active levothyroxine 50 mcg tablet RxNorm: 970109 Take 1 Tablet(s) Oral QD before Breakfast 11/18/19 23 023 Inactive amitriptyline 10 mg tablet RxNorm: 150759 Take 1 Tablet(s) Oral QHS every night at bedtime 11/18/19 23 023 Inactive amlodipine 5 mg tablet RxNorm: 447615 Take 1 Tablet(s) Oral QAM every morning 11/18/19 23 023 Inactive melatonin 5 mg tablet RxNorm: 661654 Give 1 Tablet(s) Oral QHS every night at bedtime 11/18/19 23 023 Inactive buspirone 15 mg tablet RxNorm: 542258 Take 1 Tablet(s) Oral BID 11/18/19 023 Inactive Seroquel 25 mg tablet RxNorm: 506235 Take 1 Tablet(s) Oral QHS every night at bedtime 11/18/19 023 Inactive cholecalciferol (vitamin D3) 50 mcg (2,000 unit) tablet RxNorm: 437122 Take 1 Tablet(s) Oral QD 11/18/19 023 Inactive rivastigmine 1.5 mg capsule RxNorm: 383470 Take 2 Capsule(s) Oral BID 11/18/19 023 Inactive mirtazapine 15 mg tablet RxNorm: 073599 Take 1 Tablet(s) Oral QHS every night at bedtime 11/18/19 023 Inactive aspirin-acetaminoph en-caffeine 250 mg-250 mg-65 mg tablet RxNorm: 906378 Take 2 Tablet(s) Oral QD as needed 11/18/19 023 Inactive escitalopram 10 mg tablet RxNorm: 025721 Take 1 Tablet(s) Oral QD 11/18/19 023 Inactive Medication Administered No Medication Administered data Results Observation Observation Code Item Item Code Result Date S ervice Location PHQ2 PHQ2 [id number] 04/16/2023 Unknown SLUMS SLUMS [id number] 04/16/2023 Unknown Procedures Procedure Codes Date ADVNC CARE PLAN IN [facility] CPT-4: 1157F 04/16/20 FXNL STATUS ASSESSED CPT-4: 1170F 04/16/2023 AMNT PAIN NOTED NONE PRSNT CPT-4: 1126F 04/16 FALL RISK ASSESSMENT DOCD CPT-4: 3288F 2022 Medicare Annual Wellness Visit- Subseque nt SNOMED CT: [id number] CPT-4: G0439 04/16/2023 PT INELIG NEG SCRN DEPRES SNOMED CT: [id number] CPT-4: G8510 04/16/2023 Reason For Visit No Reason For Visit data Encounters Encounter Performer Location Location Address Codes Date (92006) Home or Residence Visit Est Pt - Moderate Level, 40 mins Diagnosis: HTN (hypertension)[IC D10: I10] Diagnosis: Hypothyroid[ICD10 : E03.9] Aida Sr [facility] at [address] [address] CPT-4: 01537 04/16/2023 Plan of Care Planned Activity Notes Codes Status Date Patient Education: Patient Medication Summary Completed 04/16/2023 Patient Education: Influenza Vaccine Completed 04/16/2023 Appointment: Bam Frey: [address] [place], [place] [phone] SDV 01/22/2023 Appointment: Aida Sr WPtel: [address] [place], [place] [id number] NPAWV 11/20/2022 Referral: General Psychiatrist Referral Patient/Family Scheduling Appointment Instructions Comment Date Elderly female residing in [facility] assisted living at [facility]. PMHx: dementia, cluster B personality traits, depression, hypothyroidism, HTN, anxiety, suicidal ideationsPOLST: FULL CODEFred Anatoly-spouse, Xzzg: November/Scotty-therapist: weekly calls usually on -1:1 visits 3 times weekly 04/16/2023 Hypertension BP 138/78, controlled. Continue norvasc 5mg daily. Care plan: Routinely monitor blood pressures to follow trends. Goal is less than 150/90. Watch for side effects to medications and for over treatment, which can cause hypotension. Hypothyroidism Managed with levothyroxine 50mcg daily. Denies muscle aches or constipation. Will check TSH with routine labs. . 04/16/2023
--- OUTSIDE RECORDS SUMMARY | 2024-09-10 16:20 | XMS_ITS | CCD ---
Author Organization Unknown Care Team Providers Care Fuel Cell Engineer Name Role Phone Orin GARCIA, Aida Primary Care Provider Unavaila ble Aida Sr CNP Chronic Care Management Unavai lable Summary Purpose DataExchange Insurance Providers Payer name Policy type / Coverage type Covered constitution party ID Effective Begin Date Effective End Date [employer] Commercial Insurance [id number] Unknown Family History Family History data not found Allergies, Adverse Reactions, Alerts Substance Reaction Codes Entered Date Inactivated Date Status Sulfa Unknown 11/14/2022 No Inactive Date Ac tive Problems Condition Codes Effective Dates Condition St atus Dementia ICD-10: F03.90 ICD-9: 294.20 07/23/2023 Active Depression, major, recurrent, 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 ICD-9: 296.31 07/23/2023 Active Elevated liver enzymes ICD-10: R74.8 ICD-9: 790.5 07/23/2023 Active UTI (urinary tract infection) ICD-10: N3 9.0 ICD-9: 599.0 07/23/2023 Active HTN (hypertension) ICD-10: I10 ICD-9: 401.9 06/25/2023 Active Hypothyroid ICD-10: E03.9 ICD-9: 244.9 06/25/2023 Active Insomnia ICD-10: G47.00 ICD-9: 780.52 06/25/2023 Active Anxiety ICD-10: F41.9 ICD-9: 300.00 06/04/2023 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 Thanks. acetaminophen 500 mg tablet RxNorm: 706808 Take 2 Tablet(s) Oral BID as needed 07/20/19 24 024 Inactive acetaminophen 500 mg tablet RxNorm: 147302 Take 2 Tablet(s) Oral BID as needed 07/20/19 24 024 Inactive sertraline 100 mg tablet RxNorm: 703452 Take 1 Tablet(s) Oral QD 07/13/19 24 024 Inactive donepezil 5 mg tablet RxNorm: 687034 TAKE ONE-HALF TABLET (2.5MG) BY MOUTH ONCE DAILY 07/05/20 23 023 Inactive Cycle refill request. Cycle restarts (07/19/23). risperidone 1 mg tablet RxNorm: 786190 Take 1 Tablet(s) Oral HS at bed time 06/25/20 024 Inactive quetiapine 25 mg tablet RxNorm: 197918 Take 1 Tablet(s) Oral Q4H every four hours as needed 06/25/20 23 024 Inactive trazodone 50 mg tablet RxNorm: 932411 Take 1 Tablet(s) Oral QHS every night at bedtime as needed 06/25/20 23 024 Inactive Senna-S 8.6 mg-50 mg tablet RxNorm: 851500 Take 1 Tablet(s) Oral BID as needed 06/25/20 23 023 Inactive trazodone 50 mg tablet RxNorm: 420726 Take 1 Tablet(s) Oral QHS every night at bedtime as needed 06/25/20 23 023 Inactive Senna-S 8.6 mg-50 mg tablet RxNorm: 306489 Take 1 Tablet(s) Oral BID as needed 06/25/20 024 Inactive acetaminophen 500 mg tablet RxNorm: 543069 Take 2 Tablet(s) Oral BID as needed 06/18/20 024 Inactive acetaminophen 500 mg tablet RxNorm: 373050 Take 2 Tablet(s) Oral BID as needed 06/18/20 023 Inactive Excedrin Extra Strength 250 mg-250 mg-65 mg tablet RxNorm: 367417 Take 2 Tablet(s) Oral QD as needed 06/18/20 023 Inactive Excedrin Extra Strength 250 mg-250 mg-65 mg tablet RxNorm: 843715 Take 2 Tablet(s) Oral QD as needed 06/18/20 024 Inactive donepezil 10 mg tablet RxNorm: 728917 Take 1 Tablet(s) Oral QD 06/04/20 024 Inactive risperidone 1 mg tablet RxNorm: 134284 Take 1 Tablet(s) Oral BID 06/04/20 023 Inactive quetiapine 25 mg tablet RxNorm: 169540 Take 1 Tablet(s) Oral BID as needed 06/04/20 023 Inactive trazodone 50 mg tablet RxNorm: 210939 Take 1 Tablet(s) Oral QHS every night at bedtime 06/04/20 023 Inactive risperidone 1 mg tablet RxNorm: 259420 Take 1 Tablet(s) Oral BID as needed 06/04/20 023 Inactive divalproex 125 mg capsule,delayed release sprinkle RxNorm: 5641409 TAKE 4 CAPSULES (500MG) BY MOUTH AT BEDTIME 06/03/20 024 Inactive Please authorize quantity 90 day supply with PRN refills for assisted living patient. Their cycle restarts 06/14/23. Thank you! Senexon-S 8.6 mg-50 mg tablet RxNorm: 5778258 Take 1 Tablet(s) Oral BID 06/03/20 23 023 Inactive Please authorize quantity 90 day supply with PRN refills for assisted living patient. Their cycle restarts 06/14/23. Thank you! memantine 5 mg tablet RxNorm: 870039 TAKE ONE-HALF TABLET (2.5MG) BY MOUTH TWICE DAILY 06/03/20 23 023 Inactive Please authorize quantity 90 day supply with PRN refills for assisted living patient. Their cycle restarts 06/14/23. Thank you! sertraline 50 mg tablet RxNorm: 459978 Take 1 Tablet(s) Oral QD 06/03/20 024 Inactive Please authorize quantity 90 day supply with PRN refills for assisted living patient. Their cycle restarts 06/14/23. Thank you! naproxen 500 mg tablet RxNorm: 918857 Take 1 Tablet(s) Oral BID 01/23/20 23 023 Inactive naproxen 500 mg tablet RxNorm: 120830 Take 1 Tablet(s) Oral BID 01/23/20 23 023 Inactive naproxen 500 mg tablet RxNorm: 169498 Take 1 Tablet(s) Oral BID 01/23/20 23 023 Inactive mirtazapine 15 mg tablet RxNorm: 210967 Take 1 Tablet(s) Oral HS at bed time 01/01/20 23 023 Inactive CYCLE FILL REQUEST FOR CYCLE THAT STARTS 01/04/2023 escitalopram 10 mg tablet RxNorm: 824064 Take 1 Tablet(s) Oral QAM every morning 12/14/19 23 023 Inactive Cycle refill request. Cycle restarts (01/04/23). cholecalciferol (vitamin D3) 50 mcg (2,000 unit) tablet RxNorm: 390762 Take 1 Tablet(s) Oral QAM every morning 12/14/19 23 023 Inactive Cycle refill request. Cycle restarts (01/04/23). melatonin 10 mg sublingual tablet RxNorm: 6811911 TAKE 1 TABLET BY MOUTH AT BEDTIME NOTE DOSAGE/STRENGTH* 12/14/19 23 023 Inactive Cycle refill request. Cycle restarts (01/04/23). rivastigmine 1.5 mg capsule RxNorm: 634888 Take 1 Capsule(s) Oral BID 12/14/19 23 023 Inactive Cycle refill request. Cycle restarts (01/04/23). quetiapine 100 mg tablet RxNorm: 527677 Take 1 Tablet(s) Oral HS at bed time 12/14/19 23 023 Inactive Cycle refill request. Cycle restarts (01/04/23). levothyroxine 50 mcg tablet RxNorm: 905124 TAKE 1 TABLET BY MOUTH ONCE DAILY BEFORE BREAKFAST 12/14/19 23 023 Inactive Cycle refill request. Cycle restarts (01/04/23). amlodipine 5 mg tablet RxNorm: 437638 Take 1 Tablet(s) Oral QAM every morning 12/14/19 23 023 Inactive Cycle refill request. Cycle restarts (01/04/23). buspirone 15 mg tablet RxNorm: 403776 Take 1 Tablet(s) Oral BID 12/14/19 23 023 Inactive Cycle refill request. Cycle restarts (01/04/23). amitriptyline 10 mg tablet RxNorm: 751746 Take 1 Tablet(s) Oral HS at bed time 12/14/19 23 023 Inactive Cycle refill request. Cycle restarts (01/04/23). levofloxacin 500 mg tablet RxNorm: 865921 Take 1 Tablet(s) Oral QD 11/24/19 23 023 Inactive levofloxacin 500 mg tablet RxNorm: 150419 Take 1 Tablet(s) Oral QD 11/24/19 23 023 Inactive levothyroxine 50 mcg tablet RxNorm: 367267 Take 1 Tablet(s) Oral QD before Breakfast 11/18/19 23 023 Inactive amitriptyline 10 mg tablet RxNorm: 881690 Take 1 Tablet(s) Oral QHS every night at bedtime 11/18/19 23 023 Inactive acetaminophen 500 mg tablet RxNorm: 817059 2 Tablet(s) Oral TID as needed 11/18/19 023 Inactive amlodipine 5 mg tablet RxNorm: 359266 Take 1 Tablet(s) Oral QAM every morning 11/18/19 023 Inactive melatonin 5 mg tablet RxNorm: 777858 Give 1 Tablet(s) Oral QHS every night at bedtime 11/18/19 023 Inactive buspirone 15 mg tablet RxNorm: 600559 Take 1 Tablet(s) Oral BID 11/18/19 023 Inactive Seroquel 25 mg tablet RxNorm: 815893 Take 1 Tablet(s) Oral QHS every night at bedtime 11/18/19 023 Inactive cholecalciferol (vitamin D3) 50 mcg (2,000 unit) tablet RxNorm: 983928 Take 1 Tablet(s) Oral QD 11/18/19 023 Inactive rivastigmine 1.5 mg capsule RxNorm: 940137 Take 2 Capsule(s) Oral BID 11/18/19 023 Inactive mirtazapine 15 mg tablet RxNorm: 280614 Take 1 Tablet(s) Oral QHS every night at bedtime 11/18/19 023 Inactive aspirin-acetaminoph en-caffeine 250 mg-250 mg-65 mg tablet RxNorm: 957792 Take 2 Tablet(s) Oral QD as needed 11/18/19 023 Inactive escitalopram 10 mg tablet RxNorm: 585077 Take 1 Tablet(s) Oral QD 11/18/19 023 Inactive Medication Administered No Medication Administered data Immunizations Vaccine Codes Dose Date Status Influenza CVX: 205 1.0 04/06/2022 Covid-19 (Nonabox mR NA, LNP-S, PF, 30 mcg/0.3 mL [...] WPtel: [address], [address] [id number] Referral Order Note Incomplete Instructions Comment Date Elderly female residing in [facility] assisted living at [facility]. PMHx: dementia, cluster B personality traits, depression, hypothyroidism, HTN, anxiety, suicidal ideationsPOLST: FULL CODEFred Anatoly-spouse, Rixd: November/ham-therapist: weekly calls usually on :1 visits 3 times weekly 01/28/2024
--- OUTSIDE RECORDS SUMMARY | 2024-09-10 16:20 | XMS_ITS | CCD ---
Author Name Aida Sr CNP Address [address] [place] [address] Phone Organization [facility] Phone Care Team Providers Care Cardiology Manager Name Role Phone Orin CABLE TELEVISION LINE TECHNICIANAida Primary Care Provider Unavaila ble Orin CABLE TELEVISION LINE TECHNICIANAida Chronic Care Management Unavai lable Summary Purpose DataExchange Insurance Providers Payer name Policy type / Coverage type Covered green party ID Effective Begin Date Effective End Date [employer] Commercial Insurance [id number] Unknown Family History Family History data not [...] Fill Instructions sertraline 100 mg tablet RxNorm: 448943 Take 1 Tablet(s) Oral QD 07/13/19 Inactive donepezil 5 mg tablet RxNorm: 131367 TAKE ONE-HALF TABLET (2.5MG) BY MOUTH ONCE DAILY 07/05/20 Inactive Cycle refill request. Cycle restarts (07/19/23). risperidone 1 mg tablet RxNorm: 351301 Take 1 Tablet(s) Oral HS at bed time 06/25/20 024 Inactive trazodone 50 mg tablet RxNorm: 260307 Take 1 Tablet(s) Oral QHS every night at bedtime as needed 06/25/20 024 Inactive quetiapine 25 mg tablet RxNorm: 058519 Take 1 Tablet(s) Oral Q4H every four hours as needed 06/25/20 024 Inactive Senna-S 8.6 mg-50 mg tablet RxNorm: 114943 Take 1 Tablet(s) Oral BID as needed 06/25/20 024 Inactive Senna-S 8.6 mg-50 mg tablet RxNorm: 444279 Take 1 Tablet(s) Oral BID as needed 06/25/20 023 Inactive trazodone 50 mg tablet RxNorm: 487952 Take 1 Tablet(s) Oral QHS every night at bedtime as needed 06/25/20 023 Inactive acetaminophen 500 mg tablet RxNorm: 825730 Take 2 Tablet(s) Oral BID as needed 06/18/20 024 Inactive acetaminophen 500 mg tablet RxNorm: 264349 Take 2 Tablet(s) Oral BID as needed 06/18/20 023 Inactive Excedrin Extra Strength 250 mg-250 mg-65 mg tablet RxNorm: 359220 Take 2 Tablet(s) Oral QD as needed 06/18/20 023 Inactive Excedrin Extra Strength 250 mg-250 mg-65 mg tablet RxNorm: 006733 Take 2 Tablet(s) Oral QD as needed 06/18/20 024 Inactive donepezil 10 mg tablet RxNorm: 398287 Take 1 Tablet(s) Oral QD 06/04/20 024 Inactive risperidone 1 mg tablet RxNorm: 074760 Take 1 Tablet(s) Oral BID 06/04/20 023 Inactive quetiapine 25 mg tablet RxNorm: 567530 Take 1 Tablet(s) Oral BID as needed 06/04/20 023 Inactive trazodone 50 mg tablet RxNorm: 276038 Take 1 Tablet(s) Oral QHS every night at bedtime 06/04/20 023 Inactive risperidone 1 mg tablet RxNorm: 934152 Take 1 Tablet(s) Oral BID as needed 06/04/20 023 Inactive divalproex 125 mg capsule,delayed release sprinkle RxNorm: 8174907 TAKE 4 CAPSULES (500MG) BY MOUTH AT BEDTIME 06/03/20 024 Inactive Please authorize quantity 90 day supply with PRN refills for assisted living patient. Their cycle restarts 06/14/23. Thank you! Senexon-S 8.6 mg-50 mg tablet RxNorm: 9825442 Take 1 Tablet(s) Oral BID 06/03/20 023 Inactive Please authorize quantity 90 day supply with PRN refills for assisted living patient. Their cycle restarts 06/14/23. Thank you! memantine 5 mg tablet RxNorm: 615636 TAKE ONE-HALF TABLET (2.5MG) BY MOUTH TWICE DAILY 06/03/202 023 Inactive Please authorize quantity 90 day supply with PRN refills for assisted living patient. Their cycle restarts 06/14/23. Thank you! sertraline 50 mg tablet RxNorm: 316916 Take 1 Tablet(s) Oral QD 06/03/20 024 Inactive Please authorize quantity 90 day supply with PRN refills for assisted living patient. Their cycle restarts 06/14/23. Thank you! naproxen 500 mg tablet RxNorm: 913690 Take 1 Tablet(s) Oral BID 01/23/20 023 Inactive naproxen 500 mg tablet RxNorm: 452757 Take 1 Tablet(s) Oral BID 01/23/20 023 Inactive naproxen 500 mg tablet RxNorm: 689591 Take 1 Tablet(s) Oral BID 01/23/20 023 Inactive mirtazapine 15 mg tablet RxNorm: 157010 Take 1 Tablet(s) Oral HS at bed time 01/01/20 023 Inactive CYCLE FILL REQUEST FOR CYCLE THAT STARTS 01/04/2023 escitalopram 10 mg tablet RxNorm: 272348 Take 1 Tablet(s) Oral QAM every morning 12/14/19 023 Inactive Cycle refill request. Cycle restarts (01/04/23). cholecalciferol (vitamin D3) 50 mcg (2,000 unit) tablet RxNorm: 690365 Take 1 Tablet(s) Oral QAM every morning 12/14/19 023 Inactive Cycle refill request. Cycle restarts (01/04/23). melatonin 10 mg sublingual tablet RxNorm: 3881259 TAKE 1 TABLET BY MOUTH AT BEDTIME NOTE DOSAGE/STRENGTH* 12/14/19 023 Inactive Cycle refill request. Cycle restarts (01/04/23). rivastigmine 1.5 mg capsule RxNorm: 438616 Take 1 Capsule(s) Oral BID 12/14/19 23 023 Inactive Cycle refill request. Cycle restarts (01/04/23). quetiapine 100 mg tablet RxNorm: 514630 Take 1 Tablet(s) Oral HS at bed time 12/14/19 23 023 Inactive Cycle refill request. Cycle restarts (01/04/23). levothyroxine 50 mcg tablet RxNorm: 034234 TAKE 1 TABLET BY MOUTH ONCE DAILY BEFORE BREAKFAST 12/14/19 23 023 Inactive Cycle refill request. Cycle restarts (01/04/23). amlodipine 5 mg tablet RxNorm: 230300 Take 1 Tablet(s) Oral QAM every morning 12/14/19 23 023 Inactive Cycle refill request. Cycle restarts (01/04/23). buspirone 15 mg tablet RxNorm: 900333 Take 1 Tablet(s) Oral BID 12/14/19 23 023 Inactive Cycle refill request. Cycle restarts (01/04/23). amitriptyline 10 mg tablet RxNorm: 006129 Take 1 Tablet(s) Oral HS at bed time 12/14/19 23 023 Inactive Cycle refill request. Cycle restarts (01/04/23). levofloxacin 500 mg tablet RxNorm: 447009 Take 1 Tablet(s) Oral QD 11/24/19 23 023 Inactive levofloxacin 500 mg tablet RxNorm: 156666 Take 1 Tablet(s) Oral QD 11/24/19 23 023 Inactive levothyroxine 50 mcg tablet RxNorm: 398209 Take 1 Tablet(s) Oral QD before Breakfast 11/18/19 23 023 Inactive amitriptyline 10 mg tablet RxNorm: 855492 Take 1 Tablet(s) Oral QHS every night at bedtime 11/18/19 23 023 Inactive acetaminophen 500 mg tablet RxNorm: 722505 2 Tablet(s) Oral TID as needed 11/18/19 23 023 Inactive amlodipine 5 mg tablet RxNorm: 097474 Take 1 Tablet(s) Oral QAM every morning 11/18/19 23 023 Inactive melatonin 5 mg tablet RxNorm: 668342 Give 1 Tablet(s) Oral QHS every night at bedtime 11/18/19 23 023 Inactive buspirone 15 mg tablet RxNorm: 813533 Take 1 Tablet(s) Oral BID 11/18/19 023 Inactive Seroquel 25 mg tablet RxNorm: 786082 Take 1 Tablet(s) Oral QHS every night at bedtime 11/18/19 023 Inactive cholecalciferol (vitamin D3) 50 mcg (2,000 unit) tablet RxNorm: 550961 Take 1 Tablet(s) Oral QD 11/18/19 023 Inactive rivastigmine 1.5 mg capsule RxNorm: 190411 Take 2 Capsule(s) Oral BID 11/18/19 023 Inactive mirtazapine 15 mg tablet RxNorm: 721449 Take 1 Tablet(s) Oral QHS every night at bedtime 11/18/19 023 Inactive aspirin-acetaminoph en-caffeine 250 mg-250 mg-65 mg tablet RxNorm: 732328 Take 2 Tablet(s) Oral QD as needed 11/18/19 023 Inactive escitalopram 10 mg tablet RxNorm: 461461 Take 1 Tablet(s) Oral QD 11/18/19 023 Inactive Medication Administered No Medication Administered data Immunizations Vaccine Codes Dose Date Status Influenza CVX: 205 1.0 04/06/2022 Covid-19 (Stitcher mR NA, LNP-S, PF, 30 mcg/0.3 mL [...] 1.0 01/02/2001 Pneumococcal CVX: 33 1.0 09/04/2000 Results Observation Observation Code Item Item Code Result Date Service Location Urine Culture 59141 URINE CULTURE 16082-0 SEE RESU LTS BELOW 024 Unknown UA with Microscopic Reflex to Culture 66470 COLOR Yellow 024 Unknown UA with Microscopic Reflex to Culture 34053 Appearance Slightly Cloudy 024 Unknown UA with Microscopic Reflex to Culture 31716 GLUCOSE, URINE Negative mg/dL 024 Unknown UA with Microscopic Reflex to Culture 11139 BILIRUBIN, URINE Negative 024 Unknown UA with Microscopic Reflex to Culture 21814 Ketones Urine Negative mg/dL 024 Unknown UA with Microscopic Reflex to Culture 25339 Specific [place] Urine 1.012 024 Unknown UA with Microscopic Reflex to Culture 53838 BLOOD, URINE Negative 024 Unknown UA with Microscopic Reflex to Culture 05069 pH Urine 6.5 024 Unknown UA with Microscopic Reflex to Culture 88573 Protein urine Negative mg/dL 024 Unknown UA with Microscopic Reflex to Culture 83769 UROBILINOGEN IRIS Normal mg/dL 024 Unknown UA with Microscopic Reflex to Culture 74908 Nitrites Positive 024 Unknown UA with Microscopic Reflex to Culture 87923 LEUK ESTERASE Large 024 Unknown UA with Microscopic Reflex to Culture 53564 Bacteria Few /HPF 024 Unknown UA with Microscopic Reflex to Culture 47605 Mucus Urine Present /LPF 024 Unknown UA with Microscopic Reflex to Culture 61418 WBC CLUMPS 6690-2 Present /HPF 024 Unknown UA with Microscopic Reflex to Culture 57029 RBC Urine 2 /HPF 024 Unknown UA with Microscopic Reflex to Culture 51352 WBC Urine 74425-3 55 /HPF 024 Unknown UA with Microscopic Reflex to Culture 00529 SQUAMOUS EPITHELIAL 1 /HPF 024 Unknown CBC with Platelets [id number] WBC COUNT (AUTOMATED) 6.0 10e3/uL 024 Unknown CBC with Platelets BGM334 RBC COUNT 789-8 4.01 10e6/uL 024 Unknown CBC with Platelets XDX472 Hemoglobin 718-7 12.9 g/dL 024 Unknown CBC with Platelets BIL366 Hematocrit 4544-3 38.8 % 024 Unknown CBC with Platelets SII639 MCV 787-2 97 fL 024 Unknown CBC with Platelets XHN347 MCH 32.2 pg 024 Unknown CBC with Platelets XLO335 MCHC 33.2 g/dL 024 Unknown CBC with Platelets MOU038 RDW 12.3 % 024 Unknown CBC with Platelets LGR435 Platelet Count 777-3 238 10e3/uL 024 Unknown Comprehensive Metabolic Panel 04666 Sodium 2951-2 136 mmol/L 024 Unknown Comprehensive Metabolic Panel 56661 POTASSIUM ([place]) 2823-3 4.3 mmol/L 024 Unknown Comprehensive Metabolic Panel 47642 UREA NITROGEN ([place]) 19.0 mg/dL 024 Unknown Comprehensive Metabolic Panel 53107 CHLORIDE ([place]) 103 mmol/L 024 Unknown Comprehensive Metabolic Panel 73121 CO2 ([place]) 21 mmol/L 024 Unknown Comprehensive Metabolic Panel 46125 ANION GAP ([place]) 12 mmol/L 024 Unknown Comprehensive Metabolic Panel 04909 Creatinine 2160-0 0.63 mg/dL 024 Unknown Comprehensive Metabolic Panel 79949 GLUCOSE ([place]) 2345-7 89 mg/dL 024 Unknown Comprehensive Metabolic Panel 15072 Calcium 46074-1 10.0 mg/dL 024 Unknown Comprehensive Metabolic Panel 56368 Alkaline Phosphatase 73 U/L 024 Unknown Comprehensive Metabolic Panel 06323 AST 61 U/L 024 Unknown Comprehensive Metabolic Panel 83530 PROTEIN, TOTAL 2885-2 6.4 g/dL 024 Unknown Comprehensive Metabolic Panel 23009 ALT 93 U/L 024 Unknown Comprehensive Metabolic Panel 90983 Albumin 1751-7 3.7 g/dL 024 Unknown Comprehensive Metabolic Panel 44014 GFR, ESTIMATE 52716-1 86 mL/min/1.73 m2 024 Unknown Comprehensive Metabolic Panel 52635 Bilirubin Total 0.6 mg/dL 024 Unknown Reason For Visit No Reason For Visit data Plan of Care Planned Activity Notes Codes Status Date Appointment: Aida Sr WPtel: [address] [place] [address] [id number] [place] F/U 06/25/2023 Appointment: Bam Frey: [address] [place] [address] 300 [id number] [place] SDV 01/22/2023 Appointment: Aida Sr WPtel: [address] [place] [address] 300 [id number] NPAWV 11/20/2022 Referral: General Psychiatrist Referral Patient/Family Scheduling Appointment Referral: [facility] WPtel: [address], [address] [id number] Referral Order Note Incomplete Instructions Comment Date Elderly female residing in [facility] assisted living at [facility]. PMHx: dementia, cluster B personality traits, depression, hypothyroidism, HTN, anxiety, suicidal ideationsPOLST: FULL CODEFred Anatoly-spouse, Rkye: November/isa-therapist: weekly calls usually on :1 visits 3 times weekly 01/28/2024
--- OUTSIDE RECORDS SUMMARY | 2024-09-10 16:21 | XMS_ITS | CCD ---
Author Organization Unknown Care Team Providers Care Storeroom Supervisor Name Role Phone Orin GARCIA, Aida Primary Care Provider Unavaila ble Aida Sr CNP Chronic Care Management Unavai lable Summary Purpose DataExchange Insurance Providers Payer name Policy type / Coverage type Covered green party ID Effective Begin Date Effective End Date [place] Commercial Insurance [id number] Unknown [id number] Family History Family History data not found [...] Start Date Stop Date Status Fill Instructions escitalopram 10 mg tablet RxNorm: 988349 Take 1 Tablet(s) Oral QAM every morning 12/14/19 23 023 Inactive Cycle refill request. Cycle restarts (01/04/23). cholecalciferol (vitamin D3) 50 mcg (2,000 unit) tablet RxNorm: 719086 Take 1 Tablet(s) Oral QAM every morning 12/14/19 23 023 Inactive Cycle refill request. Cycle restarts (01/04/23). melatonin 10 mg sublingual tablet RxNorm: 6801818 TAKE 1 TABLET BY MOUTH AT BEDTIME NOTE DOSAGE/STRENGTH* 12/14/19 23 023 Inactive Cycle refill request. Cycle restarts (01/04/23). rivastigmine 1.5 mg capsule RxNorm: 435776 Take 1 Capsule(s) Oral BID 12/14/19 023 Inactive Cycle refill request. Cycle restarts (01/04/23). quetiapine 100 mg tablet RxNorm: 869057 Take 1 Tablet(s) Oral HS at bed time 12/14/19 23 023 Inactive Cycle refill request. Cycle restarts (01/04/23). levothyroxine 50 mcg tablet RxNorm: 847645 TAKE 1 TABLET BY MOUTH ONCE DAILY BEFORE BREAKFAST 12/14/19 23 023 Inactive Cycle refill request. Cycle restarts (01/04/23). amlodipine 5 mg tablet RxNorm: 433116 Take 1 Tablet(s) Oral QAM every morning 12/14/19 23 023 Inactive Cycle refill request. Cycle restarts (01/04/23). buspirone 15 mg tablet RxNorm: 342812 Take 1 Tablet(s) Oral BID 12/14/19 23 023 Inactive Cycle refill request. Cycle restarts (01/04/23). amitriptyline 10 mg tablet RxNorm: 438736 Take 1 Tablet(s) Oral HS at bed time 12/14/19 23 023 Inactive Cycle refill request. Cycle restarts (01/04/23). levofloxacin 500 mg tablet RxNorm: 378277 Take 1 Tablet(s) Oral QD 11/24/19 023 Inactive levofloxacin 500 mg tablet RxNorm: 292157 Take 1 Tablet(s) Oral QD 11/24/19 023 Inactive levothyroxine 50 mcg tablet RxNorm: 966521 Take 1 Tablet(s) Oral QD before Breakfast 11/18/19 023 Inactive amitriptyline 10 mg tablet RxNorm: 678419 Take 1 Tablet(s) Oral QHS every night at bedtime 11/18/19 023 Inactive acetaminophen 500 mg tablet RxNorm: 308178 2 Tablet(s) Oral TID as needed 11/18/19 023 Inactive amlodipine 5 mg tablet RxNorm: 897505 Take 1 Tablet(s) Oral QAM every morning 11/18/19 023 Inactive melatonin 5 mg tablet RxNorm: 018941 Give 1 Tablet(s) Oral QHS every night at bedtime 11/18/19 023 Inactive buspirone 15 mg tablet RxNorm: 368480 Take 1 Tablet(s) Oral BID 11/18/19 023 Inactive Seroquel 25 mg tablet RxNorm: 659227 Take 1 Tablet(s) Oral QHS every night at bedtime 11/18/19 023 Inactive cholecalciferol (vitamin D3) 50 mcg (2,000 unit) tablet RxNorm: 621602 Take 1 Tablet(s) Oral QD 11/18/19 023 Inactive rivastigmine 1.5 mg capsule RxNorm: 677250 Take 2 Capsule(s) Oral BID 11/18/19 023 Inactive mirtazapine 15 mg tablet RxNorm: 982983 Take 1 Tablet(s) Oral QHS every night at bedtime 11/18/19 023 Inactive aspirin-acetaminoph en-caffeine 250 mg-250 mg-65 mg tablet RxNorm: 598762 Take 2 Tablet(s) Oral QD as needed 11/18/19 023 Inactive escitalopram 10 mg tablet RxNorm: 081477 Take 1 Tablet(s) Oral QD 11/18/19 23 023 Inactive Medication Administered No Medication Administered data Immunizations Vaccine Codes Dose Date Status Influenza CVX: 205 1.0 04/06/2022 Covid-19 (TRiQ mR NA, LNP-S, PF, 30 mcg/0.3 mL [...] WPtel: [address], [address] [id number] Referral Order Note Incomplete Instructions Comment Date Elderly female residing in [facility] assisted living at [facility]. PMHx: dementia, cluster B personality traits, depression, hypothyroidism, HTN, anxiety, suicidal ideationsPOLST: FULL CODEFred Anatoly-spouse, Gauo: -therapist: weekly calls usually on :1 visits 3 times weekly 01/28/2024
--- OUTSIDE RECORDS SUMMARY | 2024-09-10 16:22 | XMS_ITS | CCD ---
Author Organization Unknown Care Team Providers Care Vehicle Glass Technician Name Role Phone Orin GARCIA, Aida Primary Care Provider Unavaila ble Aida Sr CNP Chronic Care Management Unavai lable Summary Purpose DataExchange Insurance Providers Payer name Policy type / Coverage type Covered constitution party ID Effective Begin Date Effective End Date [employer] Commercial Insurance [id number] Unknown [id number] Family History Family History data not found [...] Fill Instructions naproxen 500 mg tablet RxNorm: 188641 Take 1 Tablet(s) Oral BID 01/23/20 023 Inactive naproxen 500 mg tablet RxNorm: 444315 Take 1 Tablet(s) Oral BID 01/23/20 023 Inactive naproxen 500 mg tablet RxNorm: 645489 Take 1 Tablet(s) Oral BID 01/23/20 023 Inactive mirtazapine 15 mg tablet RxNorm: 912744 Take 1 Tablet(s) Oral HS at bed time 01/01/20 023 Inactive CYCLE FILL REQUEST FOR CYCLE THAT STARTS 01/04/2023 escitalopram 10 mg tablet RxNorm: 362871 Take 1 Tablet(s) Oral QAM every morning 12/14/19 023 Inactive Cycle refill request. Cycle restarts (01/04/23). melatonin 10 mg sublingual tablet RxNorm: 2499408 TAKE 1 TABLET BY MOUTH AT BEDTIME NOTE DOSAGE/STRENGTH* 12/14/19 023 Inactive Cycle refill request. Cycle restarts (01/04/23). rivastigmine 1.5 mg capsule RxNorm: 912582 Take 1 Capsule(s) Oral BID 12/14/19 023 Inactive Cycle refill request. Cycle restarts (01/04/23). quetiapine 100 mg tablet RxNorm: 572260 Take 1 Tablet(s) Oral HS at bed time 12/14/19 23 023 Inactive Cycle refill request. Cycle restarts (01/04/23). buspirone 15 mg tablet RxNorm: 645934 Take 1 Tablet(s) Oral BID 12/14/19 023 Inactive Cycle refill request. Cycle restarts (01/04/23). amitriptyline 10 mg tablet RxNorm: 177344 Take 1 Tablet(s) Oral HS at bed time 12/14/19 023 Inactive Cycle refill request. Cycle restarts (01/04/23). cholecalciferol (vitamin D3) 50 mcg (2,000 unit) tablet RxNorm: 927871 Take 1 Tablet(s) Oral QAM every morning 12/14/19 23 023 Inactive Cycle refill request. Cycle restarts (01/04/23). levothyroxine 50 mcg tablet RxNorm: 757372 TAKE 1 TABLET BY MOUTH ONCE DAILY BEFORE BREAKFAST 12/14/19 23 023 Inactive Cycle refill request. Cycle restarts (01/04/23). amlodipine 5 mg tablet RxNorm: 186875 Take 1 Tablet(s) Oral QAM every morning 12/14/19 23 023 Inactive Cycle refill request. Cycle restarts (01/04/23). levofloxacin 500 mg tablet RxNorm: 594793 Take 1 Tablet(s) Oral QD 11/24/19 23 023 Inactive levofloxacin 500 mg tablet RxNorm: 363706 Take 1 Tablet(s) Oral QD 11/24/19 23 023 Inactive acetaminophen 500 mg tablet RxNorm: 105177 2 Tablet(s) Oral TID as needed 11/18/19 23 023 Inactive Seroquel 25 mg tablet RxNorm: 143256 Take 1 Tablet(s) Oral QHS every night at bedtime 11/18/19 23 023 Inactive aspirin-acetaminoph en-caffeine 250 mg-250 mg-65 mg tablet RxNorm: 534344 Take 2 Tablet(s) Oral QD as needed 11/18/19 23 023 Inactive levothyroxine 50 mcg tablet RxNorm: 973114 Take 1 Tablet(s) Oral QD before Breakfast 11/18/19 23 023 Inactive amitriptyline 10 mg tablet RxNorm: 098420 Take 1 Tablet(s) Oral QHS every night at bedtime 11/18/19 23 023 Inactive amlodipine 5 mg tablet RxNorm: 836615 Take 1 Tablet(s) Oral QAM every morning 11/18/19 23 023 Inactive melatonin 5 mg tablet RxNorm: 253600 Give 1 Tablet(s) Oral QHS every night at bedtime 11/18/19 023 Inactive buspirone 15 mg tablet RxNorm: 032374 Take 1 Tablet(s) Oral BID 11/18/19 023 Inactive cholecalciferol (vitamin D3) 50 mcg (2,000 unit) tablet RxNorm: 923270 Take 1 Tablet(s) Oral QD 11/18/19 023 Inactive rivastigmine 1.5 mg capsule RxNorm: 736517 Take 2 Capsule(s) Oral BID 11/18/19 023 Inactive mirtazapine 15 mg tablet RxNorm: 472016 Take 1 Tablet(s) Oral QHS every night at bedtime 11/18/19 023 Inactive escitalopram 10 mg tablet RxNorm: 726678 Take 1 Tablet(s) Oral QD 11/18/19 023 Inactive Medication Administered No Medication Administered data Immunizations Vaccine Codes Dose Date Status Influenza CVX: 205 1.0 04/06/2022 Covid-19 (NXTM mR NA, LNP-S, PF, 30 mcg/0.3 mL [...] WPtel: [address], [address] [id number] Referral Order Note Incomplete Instructions Comment Date Elderly female residing in [facility] assisted living at [facility]. PMHx: dementia, cluster B personality traits, depression, hypothyroidism, HTN, anxiety, suicidal ideationsPOLST: FULL CODEFred Anatoly-spouse, Nmcr: November/ham-therapist: weekly calls usually on :1 visits 3 times weekly 01/28/2024
--- OUTSIDE RECORDS SUMMARY | 2024-09-10 16:23 | XMS_ITS | CCD ---
Author Organization Unknown Care Team Providers Care Athletic Turf Worker Name Role Phone Orin GARCIA, Aida Primary Care Provider Unavaila ble Aida Sr CNP Chronic Care Management Unavai lable Summary Purpose DataExchange Insurance Providers Payer name Policy type / Coverage type Covered democrat ID Effective Begin Date Effective End Date [employer] Commercial Insurance [id number] Unknown Family History Family History data not found Allergies, Adverse Reactions, Alerts Substance Reaction Codes Entered Date Inactivated Date Status Sulfa Unknown 11/14/2022 No Inactive Date Ac tive Problems Condition Codes Effective Dates Condition 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 9 ICD-9: 296.30 05/21/2023 Active Anxiety ICD-10: F41.9 ICD-9: 300.00 05/04/2023 Active Depression, major, recurrent, 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 ICD-9: 296.31 05/04/2023 Active Suicidal ideation ICD-10: R45.851 ICD-9: V62.84 05/04/2023 Active Dementia ICD-10: F03.90 ICD-9: 294.20 04/17/2023 Active HTN (hypertension) ICD-10: I10 ICD-9: 401.9 04/16/2023 Active Hypothyroid ICD-10: E03.9 ICD-9: 244.9 04/16/2023 Active Strain of right trapezius mu scle, [...] Start Date Stop Date Status Fill Instructions Senexon-S 8.6 mg-50 mg tablet RxNorm: 5009133 Take 1 Tablet(s) Oral BID 06/03/20 23 023 Inactive Please authorize quantity 90 day supply with PRN refills for assisted living patient. Their cycle restarts 06/14/23. Thank you! memantine 5 mg tablet RxNorm: 613119 TAKE ONE-HALF TABLET (2.5MG) BY MOUTH TWICE DAILY 06/03/20 023 Inactive Please authorize quantity 90 day supply with PRN refills for assisted living patient. Their cycle restarts 06/14/23. Thank you! divalproex 125 mg capsule,delayed release sprinkle RxNorm: 8155236 TAKE 4 CAPSULES (500MG) BY MOUTH AT BEDTIME 06/03/20 024 Inactive Please authorize quantity 90 day supply with PRN refills for assisted living patient. Their cycle restarts 06/14/23. Thank you! sertraline 50 mg tablet RxNorm: 938362 Take 1 Tablet(s) Oral QD 06/03/20 024 Inactive Please authorize quantity 90 day supply with PRN refills for assisted living patient. Their cycle restarts 06/14/23. Thank you! naproxen 500 mg tablet RxNorm: 387915 Take 1 Tablet(s) Oral BID 01/23/20 23 023 Inactive naproxen 500 mg tablet RxNorm: 869476 Take 1 Tablet(s) Oral BID 01/23/20 23 023 Inactive naproxen 500 mg tablet RxNorm: 182524 Take 1 Tablet(s) Oral BID 01/23/20 023 Inactive mirtazapine 15 mg tablet RxNorm: 969487 Take 1 Tablet(s) Oral HS at bed time 01/01/20 23 023 Inactive CYCLE FILL REQUEST FOR CYCLE THAT STARTS 01/04/2023 escitalopram 10 mg tablet RxNorm: 359673 Take 1 Tablet(s) Oral QAM every morning 12/14/19 23 023 Inactive Cycle refill request. Cycle restarts (01/04/23). melatonin 10 mg sublingual tablet RxNorm: 1557928 TAKE 1 TABLET BY MOUTH AT BEDTIME NOTE DOSAGE/STRENGTH* 12/14/19 023 Inactive Cycle refill request. Cycle restarts (01/04/23). rivastigmine 1.5 mg capsule RxNorm: 017589 Take 1 Capsule(s) Oral BID 12/14/19 023 Inactive Cycle refill request. Cycle restarts (01/04/23). buspirone 15 mg tablet RxNorm: 153771 Take 1 Tablet(s) Oral BID 12/14/19 023 Inactive Cycle refill request. Cycle restarts (01/04/23). cholecalciferol (vitamin D3) 50 mcg (2,000 unit) tablet RxNorm: 684518 Take 1 Tablet(s) Oral QAM every morning 12/14/19 23 023 Inactive Cycle refill request. Cycle restarts (01/04/23). quetiapine 100 mg tablet RxNorm: 477529 Take 1 Tablet(s) Oral HS at bed time 12/14/19 23 023 Inactive Cycle refill request. Cycle restarts (01/04/23). levothyroxine 50 mcg tablet RxNorm: 472634 TAKE 1 TABLET BY MOUTH ONCE DAILY BEFORE BREAKFAST 12/14/19 23 023 Inactive Cycle refill request. Cycle restarts (01/04/23). amlodipine 5 mg tablet RxNorm: 287533 Take 1 Tablet(s) Oral QAM every morning 12/14/19 23 023 Inactive Cycle refill request. Cycle restarts (01/04/23). amitriptyline 10 mg tablet RxNorm: 866799 Take 1 Tablet(s) Oral HS at bed time 12/14/19 23 023 Inactive Cycle refill request. Cycle restarts (01/04/23). levofloxacin 500 mg tablet RxNorm: 754041 Take 1 Tablet(s) Oral QD 11/24/19 023 Inactive levofloxacin 500 mg tablet RxNorm: 496711 Take 1 Tablet(s) Oral QD 11/24/19 023 Inactive acetaminophen 500 mg tablet RxNorm: 124388 2 Tablet(s) Oral TID as needed 11/18/19 023 Inactive levothyroxine 50 mcg tablet RxNorm: 479175 Take 1 Tablet(s) Oral QD before Breakfast 11/18/19 023 Inactive amitriptyline 10 mg tablet RxNorm: 446235 Take 1 Tablet(s) Oral QHS every night at bedtime 11/18/19 023 Inactive amlodipine 5 mg tablet RxNorm: 099408 Take 1 Tablet(s) Oral QAM every morning 11/18/19 023 Inactive melatonin 5 mg tablet RxNorm: 088876 Give 1 Tablet(s) Oral QHS every night at bedtime 11/18/19 023 Inactive buspirone 15 mg tablet RxNorm: 432132 Take 1 Tablet(s) Oral BID 11/18/19 023 Inactive Seroquel 25 mg tablet RxNorm: 944320 Take 1 Tablet(s) Oral QHS every night at bedtime 11/18/19 023 Inactive cholecalciferol (vitamin D3) 50 mcg (2,000 unit) tablet RxNorm: 480839 Take 1 Tablet(s) Oral QD 11/18/19 023 Inactive rivastigmine 1.5 mg capsule RxNorm: 041127 Take 2 Capsule(s) Oral BID 11/18/19 023 Inactive mirtazapine 15 mg tablet RxNorm: 443611 Take 1 Tablet(s) Oral QHS every night at bedtime 11/18/19 023 Inactive aspirin-acetaminoph en-caffeine 250 mg-250 mg-65 mg tablet RxNorm: 454683 Take 2 Tablet(s) Oral QD as needed 11/18/19 023 Inactive escitalopram 10 mg tablet RxNorm: 854245 Take 1 Tablet(s) Oral QD 11/18/19 023 Inactive Medication Administered No Medication Administered data Immunizations Vaccine Codes Dose Date Status Influenza CVX: 205 1.0 04/06/2022 Covid-19 ([employer] mR NA, LNP-S, PF, 30 mcg/0.3 mL [...] WPtel: [address], [address] [id number] Referral Order Note Incomplete Instructions Comment Date Elderly female residing in [facility] assisted living at [facility]. PMHx: dementia, cluster B personality traits, depression, hypothyroidism, HTN, anxiety, suicidal ideationsPOLST: FULL CODEFred Anatoly-spouse, Pvef: -therapist: weekly calls usually on :1 visits 3 times weekly 01/28/2024
--- OUTSIDE RECORDS SUMMARY | 2024-09-10 16:24 | XMS_ITS | CCD ---
Author Name Aida Sr CNP Address [address] [place] [address] Phone Organization [facility] Phone Care Team Providers Care Tooth Cutter Name Role Phone Orin RAILROAD INSPECTORAida Primary Care Provider Unavaila ble Orin RAILROAD INSPECTORAida Chronic Care Management Unavai lable Summary Purpose DataExchange Insurance Providers Payer name Policy type / Coverage type Covered constitution party ID Effective Begin Date Effective End Date [employer] Commercial Insurance [id number] Unknown Family History Family History data not [...] Fill Instructions naproxen 500 mg tablet RxNorm: 602553 Take 1 Tablet(s) Oral BID 01/23/20 023 Inactive naproxen 500 mg tablet RxNorm: 617840 Take 1 Tablet(s) Oral BID 01/23/20 023 Inactive naproxen 500 mg tablet RxNorm: 033568 Take 1 Tablet(s) Oral BID 01/23/20 023 Inactive mirtazapine 15 mg tablet RxNorm: 733193 Take 1 Tablet(s) Oral HS at bed time 01/01/20 023 Inactive CYCLE FILL REQUEST FOR CYCLE THAT STARTS 01/04/2023 escitalopram 10 mg tablet RxNorm: 183923 Take 1 Tablet(s) Oral QAM every morning 12/14/19 023 Inactive Cycle refill request. Cycle restarts (01/04/23). melatonin 10 mg sublingual tablet RxNorm: 7936023 TAKE 1 TABLET BY MOUTH AT BEDTIME NOTE DOSAGE/STRENGTH* 12/14/19 023 Inactive Cycle refill request. Cycle restarts (01/04/23). rivastigmine 1.5 mg capsule RxNorm: 175836 Take 1 Capsule(s) Oral BID 12/14/19 023 Inactive Cycle refill request. Cycle restarts (01/04/23). buspirone 15 mg tablet RxNorm: 076173 Take 1 Tablet(s) Oral BID 12/14/19 023 Inactive Cycle refill request. Cycle restarts (01/04/23). cholecalciferol (vitamin D3) 50 mcg (2,000 unit) tablet RxNorm: 138865 Take 1 Tablet(s) Oral QAM every morning 12/14/19 23 023 Inactive Cycle refill request. Cycle restarts (01/04/23). quetiapine 100 mg tablet RxNorm: 958941 Take 1 Tablet(s) Oral HS at bed time 12/14/19 23 023 Inactive Cycle refill request. Cycle restarts (01/04/23). levothyroxine 50 mcg tablet RxNorm: 022738 TAKE 1 TABLET BY MOUTH ONCE DAILY BEFORE BREAKFAST 12/14/19 23 023 Inactive Cycle refill request. Cycle restarts (01/04/23). amlodipine 5 mg tablet RxNorm: 565935 Take 1 Tablet(s) Oral QAM every morning 12/14/19 23 023 Inactive Cycle refill request. Cycle restarts (01/04/23). amitriptyline 10 mg tablet RxNorm: 071904 Take 1 Tablet(s) Oral HS at bed time 12/14/19 23 023 Inactive Cycle refill request. Cycle restarts (01/04/23). levofloxacin 500 mg tablet RxNorm: 582491 Take 1 Tablet(s) Oral QD 11/24/19 23 023 Inactive levofloxacin 500 mg tablet RxNorm: 179604 Take 1 Tablet(s) Oral QD 11/24/19 23 023 Inactive acetaminophen 500 mg tablet RxNorm: 435548 2 Tablet(s) Oral TID as needed 11/18/19 23 023 Inactive levothyroxine 50 mcg tablet RxNorm: 600235 Take 1 Tablet(s) Oral QD before Breakfast 11/18/19 23 023 Inactive amitriptyline 10 mg tablet RxNorm: 326202 Take 1 Tablet(s) Oral QHS every night at bedtime 11/18/19 23 023 Inactive amlodipine 5 mg tablet RxNorm: 337486 Take 1 Tablet(s) Oral QAM every morning 11/18/19 23 023 Inactive melatonin 5 mg tablet RxNorm: 973429 Give 1 Tablet(s) Oral QHS every night at bedtime 11/18/19 23 023 Inactive buspirone 15 mg tablet RxNorm: 864510 Take 1 Tablet(s) Oral BID 11/18/19 023 Inactive Seroquel 25 mg tablet RxNorm: 265593 Take 1 Tablet(s) Oral QHS every night at bedtime 11/18/19 023 Inactive cholecalciferol (vitamin D3) 50 mcg (2,000 unit) tablet RxNorm: 420107 Take 1 Tablet(s) Oral QD 11/18/19 023 Inactive rivastigmine 1.5 mg capsule RxNorm: 072524 Take 2 Capsule(s) Oral BID 11/18/19 023 Inactive mirtazapine 15 mg tablet RxNorm: 078520 Take 1 Tablet(s) Oral QHS every night at bedtime 11/18/19 023 Inactive aspirin-acetaminoph en-caffeine 250 mg-250 mg-65 mg tablet RxNorm: 664045 Take 2 Tablet(s) Oral QD as needed 11/18/19 023 Inactive escitalopram 10 mg tablet RxNorm: 893536 Take 1 Tablet(s) Oral QD 11/18/19 023 Inactive Medication Administered No Medication Administered data Immunizations Vaccine Codes Dose Date Status Influenza CVX: 205 1.0 04/06/2022 Covid-19 ([employer] mR NA, LNP-S, PF, 30 mcg/0.3 mL [...] Item Item Code Result Date Service Location TSH 26842-2 TSH 31977-4 CANCELLED 05/24/20 Unknown TSH 68862-9 Thyrotropin (TSH) 20572-6 CANC 05/24/20 Unknown Basic Metabolic Panel LAB15 BASIC METABOLIC PANEL 37692-0 CANCELLED 05/24/20 Unknown CBC with Platelets [id number] CBC with Platelets CANCELLED 05/24/20 Unknown Reason For Visit No Reason For Visit data Plan of Care Planned Activity Notes Codes Status Date Appointment: Bam Frey: [address] [place], [place] [id number] SDV 01/22/2023 Appointment: Aida Sr WPtel: [address] [place], [place] [phone] NPAWV 11/20/2022 Referral: General Psychiatrist Referral Patient/Family Scheduling Appointment Referral: [facility] [address] [facility] [id number] Referral Order Note Incomplete Instructions Comment Date Elderly female residing in [facility] assisted living at [facility]. PMHx: dementia, cluster B personality traits, depression, hypothyroidism, HTN, anxiety, suicidal ideationsPOLST: FULL CODEFred Anatoly-spouse, Dyef: November/ham-therapist: weekly calls usually on :1 visits 3 times weekly 01/28/2024
--- OUTSIDE RECORDS SUMMARY | 2024-09-10 16:25 | XMS_ITS | CCD ---
Author Organization Unknown Care Team Providers Care Program Management Manager Name Role Phone Aida Sr CNP Primary Care Provider Unavaila ble Aida Sr CNP Chronic Care Management Unavai lable Summary Purpose DataExchange Insurance Providers Payer name Policy type / Coverage type Covered alliance party ID Effective Begin Date Effective End Date [employer] Commercial Insurance [id number] Unknown Family history Runs in the family Diagnosis Age At Onset No Known Diseases N/A Social History Social History Element Codes Description Effec tive Dates Marital status Unknown 01/28/2024 Living arrangements Unknown Memory Care 01/28/[address]: 018332293 Never smoker 01/[address]: 183025149 No Alcohol Consum ption 01/28/2024 Sexually Active? [...] St atus Dementia ICD-10: F03.90 ICD-9: 294.20 08/04/2024 Active Frailty ICD-10: R54 ICD-9: 797 08/04/2024 Active HTN (hypertension) ICD-10: I10 ICD-9: 401.9 08/04/2024 Active Insomnia ICD-10: G47.00 ICD-9: 780.52 08/04/2024 Active Depression, major, recurrent , severe with [...] ICD-10: Z0 0.00 ICD-9: V70.0 01/28/2024 Active Gait instability ICD-10: R26.81 ICD-9: 781.2 01/28/2024 Active Hypothyroid ICD-10: E03.9 ICD-9: 244.9 01/28/2024 Active Major depression, 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 [...] Start Date Stop Date Status Fill Instructions ondansetron 4 mg disintegrating tablet RxNorm: 994164 Take 1 Tablet(s) Oral Q4H every four hours as needed 08/25/19 25 025 Inactive ondansetron 4 mg disintegrating tablet RxNorm: 412213 Take 1 Tablet(s) Oral Q4H every four hours as needed 08/25/19 25 025 Inactive sertraline 100 mg tablet RxNorm: 417341 Take 1 Tablet(s) Oral QD 08/14/19 25 025 Inactive REFILL REQUEST FOR CYCLE THAT STARTS ON 09/11/24. THANK YOU. donepezil 5 mg tablet RxNorm: 224927 TAKE ONE-HALF TABLET (2.5MG) BY MOUTH ONCE DAILY 07/20/19 25 049 Active CYCLE FILL REFILL REQUEST FOR CYCLE FILL THAT STARTS 08/14/2024 Senexon-S 8.6 mg-50 mg tablet RxNorm: 3615829 Take 1 Tablet(s) Oral BID as needed 06/30/20 24 028 Active risperidone 1 mg tablet RxNorm: 460763 Take 1 Tablet(s) Oral BID 06/26/20 24 025 Active memantine 5 mg tablet RxNorm: 765495 TAKE ONE-HALF TABLET (2.5MG) BY MOUTH TWICE DAILY 06/23/20 24 049 Active REFILL REQUEST FOR CYCLE THAT BEGINS 07/17, THANK YOU risperidone 0.5 mg tablet RxNorm: 526395 Take 1 Tablet(s) Oral QAM every morning 03/14/20 24 024 Inactive acetaminophen 500 mg tablet RxNorm: 142066 Take 2 Tablet(s) Oral TID as needed 02/22/20 24 No Stop Date Active risperidone 1 mg tablet RxNorm: 686124 Take 1 Tablet(s) Oral HS at bed time 02/22/20 24 024 Inactive acetaminophen 500 mg tablet RxNorm: 232043 Take 2 Tablet(s) Oral TID as needed 02/22/20 24 024 Inactive sertraline 100 mg tablet RxNorm: 008547 Take 1 Tablet(s) Oral QD Take w/ 50mg tablet 01/27/20 24 025 Active sertraline 50 mg tablet RxNorm: 360898 Take 1 Tablet(s) Oral QD Take w/ 100mg tablet 01/27/20 24 025 Active acetaminophen 500 mg tablet RxNorm: 160385 Take 2 Tablet(s) Oral TID as needed 01/27/20 24 024 Inactive amlodipine 5 mg tablet RxNorm: 571554 Take 1 Tablet(s) Oral QAM every morning 01/09/20 24 048 Active REFILL REQUEST FOR CYCLE THAT BEGINS 01/30, THANK YOU! levothyroxine 50 mcg tablet RxNorm: 218158 Take 1 Tablet(s) Oral QD BEFORE BREAKFAST 01/09/20 24 048 Active REFILL REQUEST FOR CYCLE THAT BEGINS 01/30, THANK YOU! cholecalciferol (vitamin D3) 50 mcg (2,000 unit) tablet RxNorm: 581453 Take 1 Tablet(s) Oral QAM every morning 01/09/20 24 048 Active REFILL REQUEST FOR CYCLE THAT BEGINS 01/30, THANK YOU! risperidone 0.5 mg tablet RxNorm: 048113 Take 1 Tablet(s) Oral BID 01/09/20 24 024 Inactive REFILL REQUEST FOR CYCLE THAT BEGINS 01/30, THANK YOU! sertraline 50 mg tablet RxNorm: 015527 TAKE 1 TABLET BY MOUTH ONCE DAILY. TAKE ALONG WITH 100 MG TABLET DAILY FOR A TOTAL DOSE OF 150 MG 01/09/20 24 024 Inactive REFILL REQUEST FOR CYCLE THAT BEGINS 01/30, THANK YOU! risperidone 0.5 mg tablet RxNorm: 280232 Take 1 Tablet(s) Oral BID 01/07/20 24 024 Inactive levofloxacin 500 mg tablet RxNorm: 087692 Take 1 Tablet(s) Oral QD 12/31/19 24 024 Inactive acetaminophen 500 mg tablet RxNorm: 382061 Take 2 Tablet(s) Oral TID 12/31/19 24 024 Inactive levofloxacin 500 mg tablet RxNorm: 945403 Take 1 Tablet(s) Oral QD 12/31/19 24 024 Inactive divalproex ER 250 mg tablet,extended release 24 hr RxNorm: 9734646 TAKE 1 TABLET BY MOUTH AT BEDTIME HAZARDOUS DRUG-DOUBLE GLOVE 10/21/19 048 Active CYCLE FILL REFILL REQUEST FOR CYCLE FILL THAT STARTS 11/08/2023. risperidone 1 mg tablet RxNorm: 731833 Take 1 Tablet(s) Oral BID 10/21/19 24 024 Inactive CYCLE FILL REFILL REQUEST FOR CYCLE FILL THAT STARTS 11/08/2023. acetaminophen 500 mg tablet RxNorm: 013878 Take 2 Tablet(s) Oral BID as needed 09/13/19 24 024 Inactive Tylenol Extra Strength 500 mg tablet RxNorm: 069135 Take 2 Tablet(s) Oral BID as needed 09/13/19 24 024 Inactive trazodone 50 mg tablet RxNorm: 969765 Take 1 Tablet(s) Oral QHS every night at bedtime 09/13/19 24 024 Inactive quetiapine 100 mg tablet RxNorm: 764652 Take 1.5 Tablet(s) Oral HS at bed time 09/13/19 24 024 Inactive Senexon-S 8.6 mg-50 mg tablet RxNorm: 8237618 Take 1 Tablet(s) Oral BID as needed 09/13/19 24 025 Inactive sertraline 100 mg tablet RxNorm: 929037 Take 1.5 Tablet(s) Oral QD 09/13/19 24 024 Inactive Pain Reliever Plus 250 mg-250 mg-65 mg tablet RxNorm: 727244 Take 2 Tablet(s) Oral QD as needed 09/13/19 24 024 Inactive sertraline 100 mg tablet RxNorm: 528485 Take 1 Tablet(s) Oral QD 07/29/19 24 024 Inactive Please authorize cycle refill. Thanks. acetaminophen 500 mg tablet RxNorm: 514723 Take 2 Tablet(s) Oral BID as needed 07/20/19 24 024 Inactive acetaminophen 500 mg tablet RxNorm: 694450 Take 2 Tablet(s) Oral BID as needed 07/20/19 24 024 Inactive sertraline 100 mg tablet RxNorm: 517929 Take 1 Tablet(s) Oral QD 07/13/19 24 024 Inactive donepezil 5 mg tablet RxNorm: 717739 TAKE ONE-HALF TABLET (2.5MG) BY MOUTH ONCE DAILY 07/05/20 023 Inactive Cycle refill request. Cycle restarts (07/19/23). risperidone 1 mg tablet RxNorm: 794654 Take 1 Tablet(s) Oral HS at bed time 06/25/20 024 Inactive trazodone 50 mg tablet RxNorm: 061725 Take 1 Tablet(s) Oral QHS every night at bedtime as needed 06/25/20 024 Inactive quetiapine 25 mg tablet RxNorm: 803950 Take 1 Tablet(s) Oral Q4H every four hours as needed 06/25/20 024 Inactive Senna-S 8.6 mg-50 mg tablet RxNorm: 518177 Take 1 Tablet(s) Oral BID as needed 06/25/20 023 Inactive trazodone 50 mg tablet RxNorm: 246253 Take 1 Tablet(s) Oral QHS every night at bedtime as needed 06/25/20 023 Inactive Senna-S 8.6 mg-50 mg tablet RxNorm: 562801 Take 1 Tablet(s) Oral BID as needed 06/25/20 024 Inactive acetaminophen 500 mg tablet RxNorm: 264652 Take 2 Tablet(s) Oral BID as needed 06/18/20 23 024 Inactive acetaminophen 500 mg tablet RxNorm: 000144 Take 2 Tablet(s) Oral BID as needed 06/18/20 23 023 Inactive Excedrin Extra Strength 250 mg-250 mg-65 mg tablet RxNorm: 454729 Take 2 Tablet(s) Oral QD as needed 06/18/20 23 023 Inactive Excedrin Extra Strength 250 mg-250 mg-65 mg tablet RxNorm: 176312 Take 2 Tablet(s) Oral QD as needed 06/18/20 23 024 Inactive risperidone 1 mg tablet RxNorm: 134867 Take 1 Tablet(s) Oral BID 06/04/20 23 023 Inactive quetiapine 25 mg tablet RxNorm: 880011 Take 1 Tablet(s) Oral BID as needed 06/04/20 023 Inactive trazodone 50 mg tablet RxNorm: 914734 Take 1 Tablet(s) Oral QHS every night at bedtime 06/04/20 023 Inactive donepezil 10 mg tablet RxNorm: 373483 Take 1 Tablet(s) Oral QD 06/04/20 024 Inactive risperidone 1 mg tablet RxNorm: 327776 Take 1 Tablet(s) Oral BID as needed 06/04/20 023 Inactive Senexon-S 8.6 mg-50 mg tablet RxNorm: 4886078 Take 1 Tablet(s) Oral BID 06/03/20 023 Inactive Please authorize quantity 90 day supply with PRN refills for assisted living patient. Their cycle restarts 06/14/23. Thank you! memantine 5 mg tablet RxNorm: 078389 TAKE ONE-HALF TABLET (2.5MG) BY MOUTH TWICE DAILY 06/03/20 023 Inactive Please authorize quantity 90 day supply with PRN refills for assisted living patient. Their cycle restarts 06/14/23. Thank you! divalproex 125 mg capsule,delayed release sprinkle RxNorm: 3969919 TAKE 4 CAPSULES (500MG) BY MOUTH AT BEDTIME 06/03/20 024 Inactive Please authorize quantity 90 day supply with PRN refills for assisted living patient. Their cycle restarts 06/14/23. Thank you! sertraline 50 mg tablet RxNorm: 945491 Take 1 Tablet(s) Oral QD 06/03/20 024 Inactive Please authorize quantity 90 day supply with PRN refills for assisted living patient. Their cycle restarts 06/14/23. Thank you! naproxen 500 mg tablet RxNorm: 048332 Take 1 Tablet(s) Oral BID 01/23/20 023 Inactive naproxen 500 mg tablet RxNorm: 700221 Take 1 Tablet(s) Oral BID 01/23/20 023 Inactive naproxen 500 mg tablet RxNorm: 865076 Take 1 Tablet(s) Oral BID 01/23/20 23 023 Inactive mirtazapine 15 mg tablet RxNorm: 368784 Take 1 Tablet(s) Oral HS at bed time 01/01/20 023 Inactive CYCLE FILL REQUEST FOR CYCLE THAT STARTS 01/04/2023 escitalopram 10 mg tablet RxNorm: 047477 Take 1 Tablet(s) Oral QAM every morning 12/14/19 023 Inactive Cycle refill request. Cycle restarts (01/04/23). cholecalciferol (vitamin D3) 50 mcg (2,000 unit) tablet RxNorm: 809745 Take 1 Tablet(s) Oral QAM every morning 12/14/19 23 023 Inactive Cycle refill request. Cycle restarts (01/04/23). melatonin 10 mg sublingual tablet RxNorm: 0008090 TAKE 1 TABLET BY MOUTH AT BEDTIME NOTE DOSAGE/STRENGTH* 12/14/19 023 Inactive Cycle refill request. Cycle restarts (01/04/23). rivastigmine 1.5 mg capsule RxNorm: 480342 Take 1 Capsule(s) Oral BID 12/14/19 023 Inactive Cycle refill request. Cycle restarts (01/04/23). quetiapine 100 mg tablet RxNorm: 085118 Take 1 Tablet(s) Oral HS at bed time 12/14/19 23 023 Inactive Cycle refill request. Cycle restarts (01/04/23). levothyroxine 50 mcg tablet RxNorm: 366884 TAKE 1 TABLET BY MOUTH ONCE DAILY BEFORE BREAKFAST 12/14/19 23 023 Inactive Cycle refill request. Cycle restarts (01/04/23). amlodipine 5 mg tablet RxNorm: 995903 Take 1 Tablet(s) Oral QAM every morning 12/14/19 23 023 Inactive Cycle refill request. Cycle restarts (01/04/23). buspirone 15 mg tablet RxNorm: 088554 Take 1 Tablet(s) Oral BID 12/14/19 23 023 Inactive Cycle refill request. Cycle restarts (01/04/23). amitriptyline 10 mg tablet RxNorm: 824983 Take 1 Tablet(s) Oral HS at bed time 12/14/19 23 023 Inactive Cycle refill request. Cycle restarts (01/04/23). levofloxacin 500 mg tablet RxNorm: 793433 Take 1 Tablet(s) Oral QD 11/24/19 023 Inactive levofloxacin 500 mg tablet RxNorm: 458568 Take 1 Tablet(s) Oral QD 11/24/19 23 023 Inactive levothyroxine 50 mcg tablet RxNorm: 712257 Take 1 Tablet(s) Oral QD before Breakfast 11/18/19 023 Inactive amitriptyline 10 mg tablet RxNorm: 127302 Take 1 Tablet(s) Oral QHS every night at bedtime 11/18/19 023 Inactive acetaminophen 500 mg tablet RxNorm: 993171 2 Tablet(s) Oral TID as needed 11/18/19 023 Inactive amlodipine 5 mg tablet RxNorm: 111296 Take 1 Tablet(s) Oral QAM every morning 11/18/19 023 Inactive melatonin 5 mg tablet RxNorm: 049704 Give 1 Tablet(s) Oral QHS every night at bedtime 11/18/19 023 Inactive buspirone 15 mg tablet RxNorm: 139683 Take 1 Tablet(s) Oral BID 11/18/19 023 Inactive Seroquel 25 mg tablet RxNorm: 336078 Take 1 Tablet(s) Oral QHS every night at bedtime 11/18/19 023 Inactive cholecalciferol (vitamin D3) 50 mcg (2,000 unit) tablet RxNorm: 914991 Take 1 Tablet(s) Oral QD 11/18/19 023 Inactive rivastigmine 1.5 mg capsule RxNorm: 313515 Take 2 Capsule(s) Oral BID 11/18/19 23 023 Inactive mirtazapine 15 mg tablet RxNorm: 824141 Take 1 Tablet(s) Oral QHS every night at bedtime 11/18/19 023 Inactive aspirin-acetaminoph en-caffeine 250 mg-250 mg-65 mg tablet RxNorm: 312722 Take 2 Tablet(s) Oral QD as needed 11/18/19 023 Inactive escitalopram 10 mg tablet RxNorm: 963386 Take 1 Tablet(s) Oral QD 11/18/19 023 Inactive Medication Administered No Medication Administered data Immunizations Vaccine Codes Dose Date Status Influenza CVX: 205 1.0 04/06/2022 Covid-19 ([employer] mR NA, LNP-S, PF, 30 mcg/0.3 mL [...] 1.0 01/02/2001 Pneumococcal CVX: 33 1.0 09/04/2000 Functional Status Functional / Cognitive Codes Status [...] WPtel: [address], [address] [id number] Referral Order Note Incomplete Instructions Comment Date Elderly female residing in [facility] assisted living at [facility]. PMHx: dementia, cluster B personality traits, depression, hypothyroidism, HTN, anxiety, suicidal ideationsPOLST: FULL CODEFred Anatoly-spouse, Kifo: November/ham-therapist: weekly calls usually on -:1 visits 3 times weekly 01/28/2024
--- OUTSIDE RECORDS SUMMARY | 2024-09-10 16:25 | XMS_ITS | CCD ---
Author Name Summer Staton CNP Address [address] [place] [address] Phone Organization [facility] Phone Care Team Providers Care Senior Php Software Developer Name Role Phone Aida Sr CNP Primary Care Provider Unavaila ble Aida Sr CNP Chronic Care Management Unavai elvis Summary Purpose DataExchange Insurance Providers Payer name Policy type / Coverage type Covered constitution party ID Effective Begin Date Effective End Date [employer] Insurance [id number] Unknown Family History Family History data not found Allergies, Adverse Reactions, Alerts Substance Reaction Codes Entered Date Inactivated Date Status Sulfa Unknown 11/14/2022 No Inactive Date Ac tive Problems Condition Codes Effective Dates Condition St atus Anxiety ICD-10: F41.9 ICD-9: 300.00 04/17/2023 Active Dementia ICD-10: F03.90 ICD-9: 294.20 04/17/2023 Active Major depression, 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 ICD-9: 301.89 01/18/2023 Active UTI (urinary tract infection) ICD-10: N3 9.0 ICD-9: 599.0 12/11/2022 Active Advanced care planning - to document end of life discussions Unknown 11/20/2022 Active Advance care planning ICD-10: Z71.89 ICD-9: V65.49 11/20/2022 Active Vitamin D deficiency ICD-10: E55.9 ICD-9: 268.9 11/20/2022 Active Medications Medication Codes Instructions Start Date Stop Date Status Fill Instructions naproxen 500 mg tablet RxNorm: 081610 Take 1 Tablet(s) Oral BID 01/23/20 23 023 Inactive naproxen 500 mg tablet RxNorm: 694398 Take 1 Tablet(s) Oral BID 01/23/20 023 Inactive naproxen 500 mg tablet RxNorm: 745869 Take 1 Tablet(s) Oral BID 01/23/20 023 Inactive mirtazapine 15 mg tablet RxNorm: 872659 Take 1 Tablet(s) Oral HS at bed time 01/01/20 023 Inactive CYCLE FILL REQUEST FOR CYCLE THAT STARTS 01/04/2023 escitalopram 10 mg tablet RxNorm: 662595 Take 1 Tablet(s) Oral QAM every morning 12/14/19 023 Inactive Cycle refill request. Cycle restarts (01/04/23). melatonin 10 mg sublingual tablet RxNorm: 2286965 TAKE 1 TABLET BY MOUTH AT BEDTIME NOTE DOSAGE/STRENGTH* 12/14/19 023 Inactive Cycle refill request. Cycle restarts (01/04/23). rivastigmine 1.5 mg capsule RxNorm: 808602 Take 1 Capsule(s) Oral BID 12/14/19 023 Inactive Cycle refill request. Cycle restarts (01/04/23). buspirone 15 mg tablet RxNorm: 438011 Take 1 Tablet(s) Oral BID 12/14/19 23 023 Inactive Cycle refill request. Cycle restarts (01/04/23). cholecalciferol (vitamin D3) 50 mcg (2,000 unit) tablet RxNorm: 371393 Take 1 Tablet(s) Oral QAM every morning 12/14/19 23 023 Inactive Cycle refill request. Cycle restarts (01/04/23). quetiapine 100 mg tablet RxNorm: 422169 Take 1 Tablet(s) Oral HS at bed time 12/14/19 23 023 Inactive Cycle refill request. Cycle restarts (01/04/23). levothyroxine 50 mcg tablet RxNorm: 636088 TAKE 1 TABLET BY MOUTH ONCE DAILY BEFORE BREAKFAST 12/14/19 23 023 Inactive Cycle refill request. Cycle restarts (01/04/23). amlodipine 5 mg tablet RxNorm: 696567 Take 1 Tablet(s) Oral QAM every morning 12/14/19 23 023 Inactive Cycle refill request. Cycle restarts (01/04/23). amitriptyline 10 mg tablet RxNorm: 108731 Take 1 Tablet(s) Oral HS at bed time 12/14/19 23 023 Inactive Cycle refill request. Cycle restarts (01/04/23). levofloxacin 500 mg tablet RxNorm: 070549 Take 1 Tablet(s) Oral QD 11/24/19 23 023 Inactive levofloxacin 500 mg tablet RxNorm: 631017 Take 1 Tablet(s) Oral QD 11/24/19 23 023 Inactive acetaminophen 500 mg tablet RxNorm: 604449 2 Tablet(s) Oral TID as needed 11/18/19 23 023 Inactive levothyroxine 50 mcg tablet RxNorm: 624689 Take 1 Tablet(s) Oral QD before Breakfast 11/18/19 23 023 Inactive amitriptyline 10 mg tablet RxNorm: 903984 Take 1 Tablet(s) Oral QHS every night at bedtime 11/18/19 23 023 Inactive amlodipine 5 mg tablet RxNorm: 210963 Take 1 Tablet(s) Oral QAM every morning 11/18/19 23 023 Inactive melatonin 5 mg tablet RxNorm: 993504 Give 1 Tablet(s) Oral QHS every night at bedtime 11/18/19 23 023 Inactive buspirone 15 mg tablet RxNorm: 623444 Take 1 Tablet(s) Oral BID 11/18/19 023 Inactive Seroquel 25 mg tablet RxNorm: 834597 Take 1 Tablet(s) Oral QHS every night at bedtime 11/18/19 023 Inactive cholecalciferol (vitamin D3) 50 mcg (2,000 unit) tablet RxNorm: 908897 Take 1 Tablet(s) Oral QD 11/18/19 023 Inactive rivastigmine 1.5 mg capsule RxNorm: 498426 Take 2 Capsule(s) Oral BID 11/18/19 023 Inactive mirtazapine 15 mg tablet RxNorm: 667173 Take 1 Tablet(s) Oral QHS every night at bedtime 11/18/19 023 Inactive aspirin-acetaminoph en-caffeine 250 mg-250 mg-65 mg tablet RxNorm: 528258 Take 2 Tablet(s) Oral QD as needed 11/18/19 023 Inactive escitalopram 10 mg tablet RxNorm: 395133 Take 1 Tablet(s) Oral QD 11/18/19 023 Inactive Medication Administered No Medication Administered data Immunizations Vaccine Codes Dose Date Status Influenza CVX: 205 1.0 04/06/2022 Covid-19 ([employer] mR NA, LNP-S, PF, 30 mcg/0.3 mL [...] Encounter Performer Location Location Address Codes Date (25751) Home or Residence Visit Est Pt - Moderate Level, 40 mins Diagnosis: Major depression, recurrent[ICD10: F33.9] Diagnosis: Suicidal ideation[ICD10: R45.851] Diagnosis: Anxiety[ICD10: F41.9] Diagnosis: Dementia[ICD10: F03.90] Summer Shemar [facility] at [address] [address] CPT-4: 06616 04/17/2023 Plan of Care Planned Activity Notes Codes Status Date Patient Education: Patient Medication Summary Completed 04/17/2023 Patient Education: Influenza Vaccine Completed 04/17/2023 Appointment: Bam Frey: [address] [place], [place] [phone] [place] SDV 01/22/2023 Appointment: iAda Sr WPtel: [address] [place], [place] [phone] NPAWV 11/20/2022 Referral: General Psychiatrist Referral Patient/Family Scheduling Appointment Referral: [facility]- [facility] n [facility] [address] [facility] [id number] Referral Order Note Incomplete Instructions Comment Date Elderly female residing in [facility] assisted living at [facility]. PMHx: dementia, cluster B personality traits, depression, hypothyroidism, HTN, anxiety, suicidal ideationsPOLST: FULL CODEFred Anatoly-spouse, Irqh: November/cSotty-therapist: weekly calls usually on -1:1 visits 3 times weekly 01/28/2024 Neurocognitive Disorders Contributes to mood. Not perseverating on wanting to get off the unit today. Continue to appreciate [facility]. Continue with supportive environment. Monitor for gradual cognitive changes, increased need for services, and weight loss related to progressive disease process. Anxiety No worsening of anxiety without use of amitriptyline. Continue with buspar 15mg bid. Depression No worsening of mood without use of amitriptyline. Mood appears improved with transition from Seroquel to Abilify. May consider increase in Abilify. Waiting for update from family. Suicidal ideation No mention today of SI. Denied that she wanted to harm self today. . 04/17/2023
--- OUTSIDE RECORDS SUMMARY | 2024-09-10 16:25 | XMS_ITS | CCD ---
Author Name Aida Sr CNP Address [address] [facility]. [address] [facility] [address] [place] [address] Phone Organization [facility] Phone Care Team Providers Care Catheter Finisher And Inspector Name Role Phone Orin RADHAAida Primary Care Provider Unavaila ble Orin RADHAAida Chronic Care Management Unavai lable Summary Purpose DataExchange Insurance Providers Payer name Policy type / Coverage type Covered green party ID Effective Begin Date Effective End Date [employer] Commercial Insurance [id number] Unknown Family history Runs in the family Diagnosis Age At Onset No Known Diseases N/A Social History Social History Element Codes Description Effec tive Dates Marital status Unknown 01/28/2024 Living arrangements Unknown Memory Care 01/28/[address]: 838602803 Never smoker 01/[address]: 992165154 No Alcohol Consum ption 01/28/2024 Sexually Active? 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 ICD-9: 296.34 01/28/2024 Active Encounter for preventive care ICD-10: Z0 0.00 ICD-9: V70.0 01/28/2024 Active Frailty ICD-10: R54 ICD-9: 797 01/28/2024 Active Gait instability ICD-10: R26.81 ICD-9: 781.2 01/28/2024 Active HTN (hypertension) ICD-10: I10 ICD-9: 401.9 01/28/2024 Active Hypothyroid ICD-10: E03.9 ICD-9: 244.9 01/28/2024 Active Insomnia ICD-10: G47.00 ICD-9: 780.52 01/28/2024 Active 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 levothyroxine 50 mcg tablet RxNorm: 465574 Take 1 Tablet(s) Oral QD BEFORE BREAKFAST 01/09/20 24 048 Active REFILL REQUEST FOR CYCLE THAT BEGINS 01/30, THANK YOU! cholecalciferol (vitamin D3) 50 mcg (2,000 unit) tablet RxNorm: 502847 Take 1 Tablet(s) Oral QAM every morning 01/09/20 24 048 Active REFILL REQUEST FOR CYCLE THAT BEGINS 01/30, THANK YOU! risperidone 0.5 mg tablet RxNorm: 731138 Take 1 Tablet(s) Oral BID 01/09/20 24 024 Inactive REFILL REQUEST FOR CYCLE THAT BEGINS 01/30, THANK YOU! sertraline 50 mg tablet RxNorm: 259076 TAKE 1 TABLET BY MOUTH ONCE DAILY. TAKE ALONG WITH 100 MG TABLET DAILY FOR A TOTAL DOSE OF 150 MG 01/09/20 24 024 Inactive REFILL REQUEST FOR CYCLE THAT BEGINS 01/30, THANK YOU! risperidone 0.5 mg tablet RxNorm: 575166 Take 1 Tablet(s) Oral BID 01/07/20 24 024 Inactive levofloxacin 500 mg tablet RxNorm: 991956 Take 1 Tablet(s) Oral QD 12/31/19 24 024 Inactive acetaminophen 500 mg tablet RxNorm: 731908 Take 2 Tablet(s) Oral TID 12/31/19 24 024 Inactive levofloxacin 500 mg tablet RxNorm: 466927 Take 1 Tablet(s) Oral QD 12/31/19 24 024 Inactive divalproex ER 250 mg tablet,extended release 24 hr RxNorm: 9119255 TAKE 1 TABLET BY MOUTH AT BEDTIME HAZARDOUS DRUG-DOUBLE GLOVE 10/21/19 24 048 Active CYCLE FILL REFILL REQUEST FOR CYCLE FILL THAT STARTS 11/08/2023. risperidone 1 mg tablet RxNorm: 010341 Take 1 Tablet(s) Oral BID 10/21/19 24 024 Inactive CYCLE FILL REFILL REQUEST FOR CYCLE FILL THAT STARTS 11/08/2023. Senexon-S 8.6 mg-50 mg tablet RxNorm: 1856152 Take 1 Tablet(s) Oral BID as needed 09/13/19 24 025 Inactive acetaminophen 500 mg tablet RxNorm: 203687 Take 2 Tablet(s) Oral BID as needed 09/13/19 24 024 Inactive Tylenol Extra Strength 500 mg tablet RxNorm: 258414 Take 2 Tablet(s) Oral BID as needed 09/13/19 24 024 Inactive trazodone 50 mg tablet RxNorm: 037125 Take 1 Tablet(s) Oral QHS every night at bedtime 09/13/19 24 024 Inactive quetiapine 100 mg tablet RxNorm: 404328 Take 1.5 Tablet(s) Oral HS at bed time 09/13/19 24 024 Inactive sertraline 100 mg tablet RxNorm: 056702 Take 1.5 Tablet(s) Oral QD 09/13/19 24 024 Inactive Pain Reliever Plus 250 mg-250 mg-65 mg tablet RxNorm: 266654 Take 2 Tablet(s) Oral QD as needed 09/13/19 24 024 Inactive sertraline 100 mg tablet RxNorm: 251659 Take 1 Tablet(s) Oral QD 07/29/19 24 024 Inactive Please authorize cycle refill. Thanks. acetaminophen 500 mg tablet RxNorm: 891874 Take 2 Tablet(s) Oral BID as needed 07/20/19 24 024 Inactive acetaminophen 500 mg tablet RxNorm: 699769 Take 2 Tablet(s) Oral BID as needed 07/20/19 24 01/12/2 024 Inactive sertraline 100 mg tablet RxNorm: 530603 Take 1 Tablet(s) Oral QD 07/13/19 Inactive donepezil 5 mg tablet RxNorm: 869361 TAKE ONE-HALF TABLET (2.5MG) BY MOUTH ONCE DAILY 07/05/20 Inactive Cycle refill request. Cycle restarts (07/19/23). risperidone 1 mg tablet RxNorm: 268548 Take 1 Tablet(s) Oral HS at bed time 06/25/20 024 Inactive trazodone 50 mg tablet RxNorm: 301562 Take 1 Tablet(s) Oral QHS every night at bedtime as needed 06/25/20 Inactive quetiapine 25 mg tablet RxNorm: 573492 Take 1 Tablet(s) Oral Q4H every four hours as needed 06/25/20 024 Inactive Senna-S 8.6 mg-50 mg tablet RxNorm: 681268 Take 1 Tablet(s) Oral BID as needed 06/25/20 023 Inactive trazodone 50 mg tablet RxNorm: 482501 Take 1 Tablet(s) Oral QHS every night at bedtime as needed 06/25/20 023 Inactive Senna-S 8.6 mg-50 mg tablet RxNorm: 360614 Take 1 Tablet(s) Oral BID as needed 06/25/20 024 Inactive acetaminophen 500 mg tablet RxNorm: 340488 Take 2 Tablet(s) Oral BID as needed 06/18/20 024 Inactive acetaminophen 500 mg tablet RxNorm: 107175 Take 2 Tablet(s) Oral BID as needed 06/18/20 23 023 Inactive Excedrin Extra Strength 250 mg-250 mg-65 mg tablet RxNorm: 379384 Take 2 Tablet(s) Oral QD as needed 06/18/20 23 023 Inactive Excedrin Extra Strength 250 mg-250 mg-65 mg tablet RxNorm: 355770 Take 2 Tablet(s) Oral QD as needed 06/18/20 23 024 Inactive risperidone 1 mg tablet RxNorm: 914653 Take 1 Tablet(s) Oral BID 06/04/20 023 Inactive quetiapine 25 mg tablet RxNorm: 349509 Take 1 Tablet(s) Oral BID as needed 06/04/20 023 Inactive trazodone 50 mg tablet RxNorm: 529045 Take 1 Tablet(s) Oral QHS every night at bedtime 06/04/20 023 Inactive donepezil 10 mg tablet RxNorm: 492948 Take 1 Tablet(s) Oral QD 06/04/20 024 Inactive risperidone 1 mg tablet RxNorm: 150732 Take 1 Tablet(s) Oral BID as needed 06/04/20 Inactive Senexon-S 8.6 mg-50 mg tablet RxNorm: 0208914 Take 1 Tablet(s) Oral BID 06/03/20 023 Inactive Please authorize quantity 90 day supply with PRN refills for assisted living patient. Their cycle restarts 06/14/23. Thank you! memantine 5 mg tablet RxNorm: 276348 TAKE ONE-HALF TABLET (2.5MG) BY MOUTH TWICE DAILY 06/03/20 023 Inactive Please authorize quantity 90 day supply with PRN refills for assisted living patient. Their cycle restarts 06/14/23. Thank you! divalproex 125 mg capsule,delayed release sprinkle RxNorm: 5876573 TAKE 4 CAPSULES (500MG) BY MOUTH AT BEDTIME 06/03/20 024 Inactive Please authorize quantity 90 day supply with PRN refills for assisted living patient. Their cycle restarts 06/14/23. Thank you! sertraline 50 mg tablet RxNorm: 153734 Take 1 Tablet(s) Oral QD 06/03/20 024 Inactive Please authorize quantity 90 day supply with PRN refills for assisted living patient. Their cycle restarts 06/14/23. Thank you! naproxen 500 mg tablet RxNorm: 844634 Take 1 Tablet(s) Oral BID 01/23/20 023 Inactive naproxen 500 mg tablet RxNorm: 916616 Take 1 Tablet(s) Oral BID 01/23/20 23 023 Inactive naproxen 500 mg tablet RxNorm: 546494 Take 1 Tablet(s) Oral BID 01/23/20 23 023 Inactive mirtazapine 15 mg tablet RxNorm: 490268 Take 1 Tablet(s) Oral HS at bed time 01/01/20 023 Inactive CYCLE FILL REQUEST FOR CYCLE THAT STARTS 01/04/2023 escitalopram 10 mg tablet RxNorm: 453134 Take 1 Tablet(s) Oral QAM every morning 12/14/19 023 Inactive Cycle refill request. Cycle restarts (01/04/23). cholecalciferol (vitamin D3) 50 mcg (2,000 unit) tablet RxNorm: 237394 Take 1 Tablet(s) Oral QAM every morning 12/14/19 23 023 Inactive Cycle refill request. Cycle restarts (01/04/23). melatonin 10 mg sublingual tablet RxNorm: 9684836 TAKE 1 TABLET BY MOUTH AT BEDTIME NOTE DOSAGE/STRENGTH* 12/14/19 23 023 Inactive Cycle refill request. Cycle restarts (01/04/23). rivastigmine 1.5 mg capsule RxNorm: 241003 Take 1 Capsule(s) Oral BID 12/14/19 023 Inactive Cycle refill request. Cycle restarts (01/04/23). quetiapine 100 mg tablet RxNorm: 828863 Take 1 Tablet(s) Oral HS at bed time 12/14/19 23 023 Inactive Cycle refill request. Cycle restarts (01/04/23). levothyroxine 50 mcg tablet RxNorm: 849051 TAKE 1 TABLET BY MOUTH ONCE DAILY BEFORE BREAKFAST 12/14/19 23 023 Inactive Cycle refill request. Cycle restarts (01/04/23). amlodipine 5 mg tablet RxNorm: 140047 Take 1 Tablet(s) Oral QAM every morning 12/14/19 23 023 Inactive Cycle refill request. Cycle restarts (01/04/23). buspirone 15 mg tablet RxNorm: 968786 Take 1 Tablet(s) Oral BID 12/14/19 23 023 Inactive Cycle refill request. Cycle restarts (01/04/23). amitriptyline 10 mg tablet RxNorm: 588748 Take 1 Tablet(s) Oral HS at bed time 12/14/19 23 023 Inactive Cycle refill request. Cycle restarts (01/04/23). levofloxacin 500 mg tablet RxNorm: 909512 Take 1 Tablet(s) Oral QD 11/24/19 23 023 Inactive levofloxacin 500 mg tablet RxNorm: 007131 Take 1 Tablet(s) Oral QD 11/24/19 23 023 Inactive levothyroxine 50 mcg tablet RxNorm: 949499 Take 1 Tablet(s) Oral QD before Breakfast 11/18/19 23 023 Inactive amitriptyline 10 mg tablet RxNorm: 327516 Take 1 Tablet(s) Oral QHS every night at bedtime 11/18/19 23 023 Inactive acetaminophen 500 mg tablet RxNorm: 250790 2 Tablet(s) Oral TID as needed 11/18/19 23 023 Inactive amlodipine 5 mg tablet RxNorm: 883901 Take 1 Tablet(s) Oral QAM every morning 11/18/19 23 023 Inactive melatonin 5 mg tablet RxNorm: 119749 Give 1 Tablet(s) Oral QHS every night at bedtime 11/18/19 023 Inactive buspirone 15 mg tablet RxNorm: 362678 Take 1 Tablet(s) Oral BID 11/18/19 023 Inactive Seroquel 25 mg tablet RxNorm: 201613 Take 1 Tablet(s) Oral QHS every night at bedtime 11/18/19 23 023 Inactive cholecalciferol (vitamin D3) 50 mcg (2,000 unit) tablet RxNorm: 342538 Take 1 Tablet(s) Oral QD 11/18/19 23 023 Inactive rivastigmine 1.5 mg capsule RxNorm: 550785 Take 2 Capsule(s) Oral BID 11/18/19 023 Inactive mirtazapine 15 mg tablet RxNorm: 346040 Take 1 Tablet(s) Oral QHS every night at bedtime 11/18/19 023 Inactive aspirin-acetaminoph en-caffeine 250 mg-250 mg-65 mg tablet RxNorm: 786900 Take 2 Tablet(s) Oral QD as needed 11/18/19 023 Inactive escitalopram 10 mg tablet RxNorm: 429868 Take 1 Tablet(s) Oral QD 11/18/19 023 Inactive Medication Administered No Medication Administered data Immunizations Vaccine Codes Dose Date Status Influenza CVX: 205 1.0 04/06/2022 Covid-19 ([employer] mR NA, LNP-S, PF, 30 mcg/0.3 mL [...] Date Patient Education: Patient Medication Summary Completed 02/05/2024 Appointment: Aida Sr WPtel: [address] [place], [place] [phone] [place] F/U 12/31/2023 Appointment: Aida Sr WPtel: [address] [place], [place] [phone] [place] F/U 09/17/2023 Appointment: Aida Sr WPtel: [address] [place], [place] [phone] [place] F/U 07/23/2023 Appointment: Aida Sr WPtel: [address] [place], [place] [phone] [place] F/U 06/25/2023 Appointment: Bam Frey: [address] [place], [place] [phone] [place] SDV 01/22/2023 Appointment: Aida Sr WPtel: [address] [place], [place] [phone] NPAWV 11/20/2022 Referral: General Psychiatrist Referral Patient/Family Scheduling Appointment Referral: VIA Orthopedics- I n Home Visits WPtel: [address], [address] [id number] Referral Order Note Incomplete Instructions Comment Date Elderly female residing in [facility] assisted living at [facility]. PMHx: dementia, cluster B personality traits, depression, hypothyroidism, HTN, anxiety, suicidal ideationsPOLST: FULL CODEFred Anatoly-spouse, Zwcj: November/ham-therapist: weekly calls usually on :1 visits 3 times weekly 01/28/2024
--- OUTSIDE RECORDS SUMMARY | 2024-09-10 16:25 | XMS_ITS | CCD ---
Author Name Aida Sr CNP Address [address] [facility] [address] [facility] [address] [place] [address] Phone Organization [facility] Phone Care Team Providers Care Consultant Internship Name Role Phone Aida Sr CNP Primary Care Provider Unavaila ble Orin CLAIM CLERKAida Chronic Care Management Unavai lable Summary Purpose DataExchange Insurance Providers Payer name Policy type / Coverage type Covered democrat ID Effective Begin Date Effective End Date [employer] [id number] Unknown Family History Family History data not found Allergies, Adverse Reactions, Alerts Substance Reaction Codes Entered Date Inactivated Date Status Sulfa Unknown 11/14/2022 No Inactive Date Ac tive Problems Condition Codes Effective Dates Condition St atus Anxiety ICD-10: F41.9 ICD-9: 300.00 06/04/2023 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 9 ICD-9: 296.30 05/21/2023 Active Suicidal ideation ICD-10: R45.851 ICD-9: V62.84 05/04/2023 Active HTN (hypertension) ICD-10: I10 ICD-9: 401.9 [...] Fill Instructions risperidone 1 mg tablet RxNorm: 649755 Take 1 Tablet(s) Oral BID 06/04/20 023 Inactive quetiapine 25 mg tablet RxNorm: 686637 Take 1 Tablet(s) Oral BID as needed 06/04/20 023 Inactive trazodone 50 mg tablet RxNorm: 871307 Take 1 Tablet(s) Oral QHS every night at bedtime 06/04/20 023 Inactive donepezil 10 mg tablet RxNorm: 697267 Take 1 Tablet(s) Oral QD 06/04/20 024 Inactive risperidone 1 mg tablet RxNorm: 598041 Take 1 Tablet(s) Oral BID as needed 06/04/20 023 Inactive Senexon-S 8.6 mg-50 mg tablet RxNorm: 1324239 Take 1 Tablet(s) Oral BID 06/03/20 023 Inactive Please authorize quantity 90 day supply with PRN refills for assisted living patient. Their cycle restarts 06/14/23. Thank you! divalproex 125 mg capsule,delayed release sprinkle RxNorm: 8585905 TAKE 4 CAPSULES (500MG) BY MOUTH AT BEDTIME 06/03/20 024 Inactive Please authorize quantity 90 day supply with PRN refills for assisted living patient. Their cycle restarts 06/14/23. Thank you! sertraline 50 mg tablet RxNorm: 693752 Take 1 Tablet(s) Oral QD 06/03/20 024 Inactive Please authorize quantity 90 day supply with PRN refills for assisted living patient. Their cycle restarts 06/14/23. Thank you! memantine 5 mg tablet RxNorm: 359232 TAKE ONE-HALF TABLET (2.5MG) BY MOUTH TWICE DAILY 06/03/20 023 Inactive Please authorize quantity 90 day supply with PRN refills for assisted living patient. Their cycle restarts 06/14/23. Thank you! naproxen 500 mg tablet RxNorm: 871159 Take 1 Tablet(s) Oral BID 01/23/20 023 Inactive naproxen 500 mg tablet RxNorm: 694310 Take 1 Tablet(s) Oral BID 01/23/20 023 Inactive naproxen 500 mg tablet RxNorm: 106201 Take 1 Tablet(s) Oral BID 01/23/20 023 Inactive mirtazapine 15 mg tablet RxNorm: 594986 Take 1 Tablet(s) Oral HS at bed time 01/01/20 023 Inactive CYCLE FILL REQUEST FOR CYCLE THAT STARTS 01/04/2023 escitalopram 10 mg tablet RxNorm: 864819 Take 1 Tablet(s) Oral QAM every morning 12/14/19 023 Inactive Cycle refill request. Cycle restarts (01/04/23). cholecalciferol (vitamin D3) 50 mcg (2,000 unit) tablet RxNorm: 196508 Take 1 Tablet(s) Oral QAM every morning 12/14/19 023 Inactive Cycle refill request. Cycle restarts (01/04/23). melatonin 10 mg sublingual tablet RxNorm: 5265994 TAKE 1 TABLET BY MOUTH AT BEDTIME NOTE DOSAGE/STRENGTH* 12/14/19 023 Inactive Cycle refill request. Cycle restarts (01/04/23). rivastigmine 1.5 mg capsule RxNorm: 753818 Take 1 Capsule(s) Oral BID 12/14/19 23 023 Inactive Cycle refill request. Cycle restarts (01/04/23). quetiapine 100 mg tablet RxNorm: 531330 Take 1 Tablet(s) Oral HS at bed time 12/14/19 23 023 Inactive Cycle refill request. Cycle restarts (01/04/23). levothyroxine 50 mcg tablet RxNorm: 934842 TAKE 1 TABLET BY MOUTH ONCE DAILY BEFORE BREAKFAST 12/14/19 23 023 Inactive Cycle refill request. Cycle restarts (01/04/23). amlodipine 5 mg tablet RxNorm: 920379 Take 1 Tablet(s) Oral QAM every morning 12/14/19 23 023 Inactive Cycle refill request. Cycle restarts (01/04/23). buspirone 15 mg tablet RxNorm: 091310 Take 1 Tablet(s) Oral BID 12/14/19 23 023 Inactive Cycle refill request. Cycle restarts (01/04/23). amitriptyline 10 mg tablet RxNorm: 658460 Take 1 Tablet(s) Oral HS at bed time 12/14/19 23 023 Inactive Cycle refill request. Cycle restarts (01/04/23). levofloxacin 500 mg tablet RxNorm: 834749 Take 1 Tablet(s) Oral QD 11/24/19 23 023 Inactive levofloxacin 500 mg tablet RxNorm: 189275 Take 1 Tablet(s) Oral QD 11/24/19 23 023 Inactive acetaminophen 500 mg tablet RxNorm: 070959 2 Tablet(s) Oral TID as needed 11/18/19 23 023 Inactive levothyroxine 50 mcg tablet RxNorm: 901323 Take 1 Tablet(s) Oral QD before Breakfast 11/18/19 23 023 Inactive amitriptyline 10 mg tablet RxNorm: 300278 Take 1 Tablet(s) Oral QHS every night at bedtime 11/18/19 23 023 Inactive amlodipine 5 mg tablet RxNorm: 919059 Take 1 Tablet(s) Oral QAM every morning 11/18/19 23 023 Inactive melatonin 5 mg tablet RxNorm: 896202 Give 1 Tablet(s) Oral QHS every night at bedtime 11/18/19 023 Inactive buspirone 15 mg tablet RxNorm: 344106 Take 1 Tablet(s) Oral BID 11/18/19 023 Inactive Seroquel 25 mg tablet RxNorm: 800645 Take 1 Tablet(s) Oral QHS every night at bedtime 11/18/19 023 Inactive cholecalciferol (vitamin D3) 50 mcg (2,000 unit) tablet RxNorm: 577375 Take 1 Tablet(s) Oral QD 11/18/19 023 Inactive rivastigmine 1.5 mg capsule RxNorm: 911803 Take 2 Capsule(s) Oral BID 11/18/19 023 Inactive mirtazapine 15 mg tablet RxNorm: 397218 Take 1 Tablet(s) Oral QHS every night at bedtime 11/18/19 023 Inactive aspirin-acetaminoph en-caffeine 250 mg-250 mg-65 mg tablet RxNorm: 726931 Take 2 Tablet(s) Oral QD as needed 11/18/19 023 Inactive escitalopram 10 mg tablet RxNorm: 019750 Take 1 Tablet(s) Oral QD 11/18/19 023 Inactive Medication Administered No Medication Administered data Immunizations Vaccine Codes Dose Date Status Influenza CVX: 205 1.0 04/06/2022 Covid-19 ([employer] mR NA, LNP-S, PF, 30 mcg/0.3 mL [...] 33 1.0 09/04/2000 Vital Signs Date Vital 06/04/2023 Blood Pressure 1: 159/91 Code: 8480-6 Blood Pressure 2: 143/76 Code: 8480-6 Heart Rate 1: 81 bpm Code: 8867-4 Respiratory Rate: 22 bpm Temperature: 36.1 (C) / 97.0 (F) Weight: 169 lbs Code: 3141-9 Reason For Visit No Reason For Visit data Encounters Encounter Performer Location Location Address Codes Date (032[address]) [facility] Diagnosis: Paranoid psychosis[ICD10: F22] Diagnosis: Dementia[ICD10: F03.90] Diagnosis: Depression, major, recurrent, mild[ICD10: F33.0] 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 [address] [id number] NPAWV 11/20/2022 Referral: General Psychiatrist Referral Patient/Family Scheduling Appointment Referral: VIA Orthopedics- I n Home Visits WPtel: [address], [address] [id number] Referral Order Note Incomplete Instructions Comment Date Elderly female residing in [facility] assisted living at [facility]. 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 Risperidone 1mg BID, depakote 500mg qhs. Follow up with psych as directed. Insomnia Sleeping well since returning from hospital. Continue trazodone 50mg qhs, depakote 500mg qhs. Monitor for difficulty sleeping, irritation, increased behaviors & daytime tiredness. Depression, major, recurrent, mild lexapro d'c'd in hospital. Zoloft 50mg qd started. Follow with psych as directed. Monitor for increased sadness, depression, increased sleeping, self-isolating, & decreased appetite. Paranoid psychosis She has follow-up appointment with psychiatry: Yuliya Cortland 06/05 at 410, 07/03 at 1345. Monitor for hallucinations, delusions, anger outbursts or physical altercations, and free floating anxiety. Dementia Rivastigmine d'c'd during hospital stay and aricept 10mg qhs started, namenda 2.5mg BID. Follow up with psych as directed. Anxiety No anxiety during visit. Continue risperidone 1mg BID, depakote 500mg qhs. Follow up with psych as directed. Monitor for increase anxiety, irritability, excessive worry, insomnia & trembling.. 06/04/2023
--- OUTSIDE RECORDS SUMMARY | 2024-09-10 16:26 | XMS_ITS | CCD ---
Author Name Aida Sr CNP Address [address] [place] [address] Phone Organization [facility] Phone Care Team Providers Care Cook Pressure Name Role Phone Aida Sr CNP Primary Care Provider Unavaila ble [facility] Chronic Care Management Unavai lable Summary Purpose DataExchange Insurance Providers Payer name Policy type / Coverage type Covered democrat ID Effective Begin Date Effective End Date [employer] Commercial Insurance [id number] Unknown Family History Family History data not [...] Start Date Stop Date Status Fill Instructions acetaminophen 500 mg tablet RxNorm: 617216 Take 2 Tablet(s) Oral BID as needed 07/20/19 24 Inactive acetaminophen 500 mg tablet RxNorm: 613593 Take 2 Tablet(s) Oral BID as needed 07/20/19 24 024 Inactive sertraline 100 mg tablet RxNorm: 025754 Take 1 Tablet(s) Oral QD 07/13/19 24 024 Inactive donepezil 5 mg tablet RxNorm: 881911 TAKE ONE-HALF TABLET (2.5MG) BY MOUTH ONCE DAILY 07/05/20 23 023 Inactive Cycle refill request. Cycle restarts (07/19/23). risperidone 1 mg tablet RxNorm: 758487 Take 1 Tablet(s) Oral HS at bed time 06/25/20 024 Inactive trazodone 50 mg tablet RxNorm: 765888 Take 1 Tablet(s) Oral QHS every night at bedtime as needed 06/25/20 024 Inactive quetiapine 25 mg tablet RxNorm: 911062 Take 1 Tablet(s) Oral Q4H every four hours as needed 06/25/20 23 024 Inactive Senna-S 8.6 mg-50 mg tablet RxNorm: 569353 Take 1 Tablet(s) Oral BID as needed 06/25/20 024 Inactive Senna-S 8.6 mg-50 mg tablet RxNorm: 143124 Take 1 Tablet(s) Oral BID as needed 06/25/20 023 Inactive trazodone 50 mg tablet RxNorm: 300727 Take 1 Tablet(s) Oral QHS every night at bedtime as needed 06/25/20 023 Inactive acetaminophen 500 mg tablet RxNorm: 387730 Take 2 Tablet(s) Oral BID as needed 06/18/20 024 Inactive acetaminophen 500 mg tablet RxNorm: 469442 Take 2 Tablet(s) Oral BID as needed 06/18/20 023 Inactive Excedrin Extra Strength 250 mg-250 mg-65 mg tablet RxNorm: 345767 Take 2 Tablet(s) Oral QD as needed 06/18/20 023 Inactive Excedrin Extra Strength 250 mg-250 mg-65 mg tablet RxNorm: 644565 Take 2 Tablet(s) Oral QD as needed 06/18/20 024 Inactive donepezil 10 mg tablet RxNorm: 779814 Take 1 Tablet(s) Oral QD 06/04/20 024 Inactive risperidone 1 mg tablet RxNorm: 492943 Take 1 Tablet(s) Oral BID 06/04/20 023 Inactive quetiapine 25 mg tablet RxNorm: 098641 Take 1 Tablet(s) Oral BID as needed 06/04/20 023 Inactive trazodone 50 mg tablet RxNorm: 073558 Take 1 Tablet(s) Oral QHS every night at bedtime 06/04/20 023 Inactive risperidone 1 mg tablet RxNorm: 184703 Take 1 Tablet(s) Oral BID as needed 06/04/20 023 Inactive divalproex 125 mg capsule,delayed release sprinkle RxNorm: 5478309 TAKE 4 CAPSULES (500MG) BY MOUTH AT BEDTIME 06/03/20 024 Inactive Please authorize quantity 90 day supply with PRN refills for assisted living patient. Their cycle restarts 06/14/23. Thank you! Senexon-S 8.6 mg-50 mg tablet RxNorm: 2515103 Take 1 Tablet(s) Oral BID 06/03/20 23 023 Inactive Please authorize quantity 90 day supply with PRN refills for assisted living patient. Their cycle restarts 06/14/23. Thank you! memantine 5 mg tablet RxNorm: 375769 TAKE ONE-HALF TABLET (2.5MG) BY MOUTH TWICE DAILY 06/03/20 23 023 Inactive Please authorize quantity 90 day supply with PRN refills for assisted living patient. Their cycle restarts 06/14/23. Thank you! sertraline 50 mg tablet RxNorm: 580298 Take 1 Tablet(s) Oral QD 06/03/20 024 Inactive Please authorize quantity 90 day supply with PRN refills for assisted living patient. Their cycle restarts 06/14/23. Thank you! naproxen 500 mg tablet RxNorm: 876201 Take 1 Tablet(s) Oral BID 01/23/20 23 023 Inactive naproxen 500 mg tablet RxNorm: 074135 Take 1 Tablet(s) Oral BID 01/23/20 23 023 Inactive naproxen 500 mg tablet RxNorm: 649124 Take 1 Tablet(s) Oral BID 01/23/20 23 023 Inactive mirtazapine 15 mg tablet RxNorm: 371604 Take 1 Tablet(s) Oral HS at bed time 01/01/20 23 023 Inactive CYCLE FILL REQUEST FOR CYCLE THAT STARTS 01/04/2023 escitalopram 10 mg tablet RxNorm: 108999 Take 1 Tablet(s) Oral QAM every morning 12/14/19 23 023 Inactive Cycle refill request. Cycle restarts (01/04/23). cholecalciferol (vitamin D3) 50 mcg (2,000 unit) tablet RxNorm: 450880 Take 1 Tablet(s) Oral QAM every morning 12/14/19 23 023 Inactive Cycle refill request. Cycle restarts (01/04/23). melatonin 10 mg sublingual tablet RxNorm: 4876778 TAKE 1 TABLET BY MOUTH AT BEDTIME NOTE DOSAGE/STRENGTH* 12/14/19 23 023 Inactive Cycle refill request. Cycle restarts (01/04/23). rivastigmine 1.5 mg capsule RxNorm: 909184 Take 1 Capsule(s) Oral BID 12/14/19 23 023 Inactive Cycle refill request. Cycle restarts (01/04/23). quetiapine 100 mg tablet RxNorm: 630635 Take 1 Tablet(s) Oral HS at bed time 12/14/19 23 023 Inactive Cycle refill request. Cycle restarts (01/04/23). levothyroxine 50 mcg tablet RxNorm: 503904 TAKE 1 TABLET BY MOUTH ONCE DAILY BEFORE BREAKFAST 12/14/19 23 023 Inactive Cycle refill request. Cycle restarts (01/04/23). amlodipine 5 mg tablet RxNorm: 525568 Take 1 Tablet(s) Oral QAM every morning 12/14/19 23 023 Inactive Cycle refill request. Cycle restarts (01/04/23). buspirone 15 mg tablet RxNorm: 963960 Take 1 Tablet(s) Oral BID 12/14/19 23 023 Inactive Cycle refill request. Cycle restarts (01/04/23). amitriptyline 10 mg tablet RxNorm: 107382 Take 1 Tablet(s) Oral HS at bed time 12/14/19 23 023 Inactive Cycle refill request. Cycle restarts (01/04/23). levofloxacin 500 mg tablet RxNorm: 850326 Take 1 Tablet(s) Oral QD 11/24/19 23 023 Inactive levofloxacin 500 mg tablet RxNorm: 812550 Take 1 Tablet(s) Oral QD 11/24/19 23 023 Inactive levothyroxine 50 mcg tablet RxNorm: 057351 Take 1 Tablet(s) Oral QD before Breakfast 11/18/19 23 023 Inactive amitriptyline 10 mg tablet RxNorm: 538693 Take 1 Tablet(s) Oral QHS every night at bedtime 11/18/19 23 023 Inactive acetaminophen 500 mg tablet RxNorm: 899556 2 Tablet(s) Oral TID as needed 11/18/19 023 Inactive amlodipine 5 mg tablet RxNorm: 989157 Take 1 Tablet(s) Oral QAM every morning 11/18/19 023 Inactive melatonin 5 mg tablet RxNorm: 655964 Give 1 Tablet(s) Oral QHS every night at bedtime 11/18/19 023 Inactive buspirone 15 mg tablet RxNorm: 650047 Take 1 Tablet(s) Oral BID 11/18/19 023 Inactive Seroquel 25 mg tablet RxNorm: 176863 Take 1 Tablet(s) Oral QHS every night at bedtime 11/18/19 023 Inactive cholecalciferol (vitamin D3) 50 mcg (2,000 unit) tablet RxNorm: 370300 Take 1 Tablet(s) Oral QD 11/18/19 023 Inactive rivastigmine 1.5 mg capsule RxNorm: 267959 Take 2 Capsule(s) Oral BID 11/18/19 023 Inactive mirtazapine 15 mg tablet RxNorm: 299809 Take 1 Tablet(s) Oral QHS every night at bedtime 11/18/19 023 Inactive aspirin-acetaminoph en-caffeine 250 mg-250 mg-65 mg tablet RxNorm: 793691 Take 2 Tablet(s) Oral QD as needed 11/18/19 023 Inactive escitalopram 10 mg tablet RxNorm: 887199 Take 1 Tablet(s) Oral QD 11/18/19 023 Inactive Medication Administered No Medication Administered data Immunizations Vaccine Codes Dose Date Status Influenza CVX: 205 1.0 04/06/2022 Covid-19 (GeoOP mR NA, LNP-S, PF, 30 mcg/0.3 mL [...] 33 1.0 09/04/2000 Vital Signs Date Vital 07/23/2023 Blood Pressure 1: 127/82 Code: 8480-6 Heart Rate 1: 56 bpm Code: 8867-4 Respiratory Rate: 16 bpm Temperature: 35.6 (C) / 96.1 (F) Weight: 172 lbs Code: 3141-9 Reason For Visit No Reason For Visit data Encounters Encounter Performer Location Location Address Codes Date () Home or Residence Visit Est Pt - Moderate Level, 40 mins Diagnosis: Dementia[ICD10: F03.90] Diagnosis: Elevated liver enzymes[ICD10: R74.8] Diagnosis: Depression, major, recurrent, mild[ICD10: F33.0] Diagnosis: UTI (urinary tract infection)[ICD10: N39.0] Aida Sr [facility] at [address] [address] CPT-4: 68325 07/23/2023 Plan of Care Planned Activity Notes Codes Status Date Patient Education: Patient Medication Summary Completed 07/23/2023 Patient Education: Influenza Complet ed 07/23/2023 Appointment: Aida Sr WPtel: [address] [place] [address] [address] [id number] [place] F/U 06/25/2023 Appointment: Bam Frey: [address] [place] [address] [address] [id number] [place] SDV 01/22/2023 Appointment: Aida Sr WPtel: [address] [place] [address] [address] [id number] NPAWV 11/20/2022 Referral: General Psychiatrist Referral Patient/Family Scheduling Appointment Referral: VIA Orthopedics- I n Home Visits WPtel: [address], [address] [id number] Referral Order Note Incomplete Instructions Comment Date Elderly female residing in [facility] assisted living at [facility]. PMHx: dementia, cluster B personality traits, depression, hypothyroidism, HTN, anxiety, suicidal ideationsPOLST: FULL CODEFred Anatoly-spouse, Ifmh: November/-therapist: weekly calls usually on -1:1 visits 3 times weekly 01/28/2024 Dementia aricept 10mg qHS, namenda 2.5mg BID. Appreciate BHI. Follows with psych as directed. Gradual progressive worsening as anticipated with disease course. Appropriate for memory care. Monitor need for increased services, reassess at f/u in 1 month. UTI (urinary tract infection) 07/22/22: UTI + cipro 500mg BID x 5 days. Mild burning present today. Patient starting antibiotic today. Encouraged patient to drink adequate fluids. Elevated liver enzymes Elevated liver enzymes. Asymptomatic. Unclear of etiology. Will obtain abdominal/liver ultrasound and screen for hepatitis B, C. November 2022 AST 51, ALT May AST 63, ALT 113 Jun 2023 AST 72, ALT 130 Jul 2023 AST 61, ALT 93 Depression, major, recurrent, mild Zoloft 50mg qd. Appreciate BHI. Patient follows with psych as directed. Monitor for increased sadness, depression, increased sleeping, self-isolating, & decreased appetite.. 07/23/2023
--- OUTSIDE RECORDS SUMMARY | 2024-09-10 16:26 | XMS_ITS | CCD ---
Author Name Aida Sr CNP Address [address] [place] [address] Phone Organization [facility] Phone Care Team Providers Care Stereotyper Name Role Phone Aida Sr CNP Primary Care Provider Unavaila ble Orni PRESS WORKER HELPERAida Chronic Care Management Unavai lable Summary Purpose DataExchange Insurance Providers Payer name Policy type / Coverage type Covered republican ID Effective Begin Date Effective End Date [employer] Commercial [employer] [id number] Unknown Family History Family History data not [...] 250 mg tablet,extended release 24 hr RxNorm: 5020596 TAKE 1 TABLET BY MOUTH AT BEDTIME HAZARDOUS DRUG-DOUBLE GLOVE 10/21/19 24 048 Active CYCLE FILL REFILL REQUEST FOR CYCLE FILL THAT STARTS 11/08/2023. risperidone 1 mg tablet RxNorm: 549546 Take 1 Tablet(s) Oral BID 10/21/19 24 024 Inactive CYCLE FILL REFILL REQUEST FOR CYCLE FILL THAT STARTS 11/08/2023. Tylenol Extra Strength 500 mg tablet RxNorm: 092754 Take 2 Tablet(s) Oral BID as needed 09/13/19 24 024 Inactive trazodone 50 mg tablet RxNorm: 134797 Take 1 Tablet(s) Oral QHS every night at bedtime 09/13/19 24 024 Inactive Senexon-S 8.6 mg-50 mg tablet RxNorm: 3817783 Take 1 Tablet(s) Oral BID as needed 09/13/19 24 025 Inactive sertraline 100 mg tablet RxNorm: 935215 Take 1.5 Tablet(s) Oral QD 09/13/19 24 024 Inactive Pain Reliever Plus 250 mg-250 mg-65 mg tablet RxNorm: 076856 Take 2 Tablet(s) Oral QD as needed 09/13/19 24 Inactive acetaminophen 500 mg tablet RxNorm: 214175 Take 2 Tablet(s) Oral BID as needed 09/13/19 24 024 Inactive quetiapine 100 mg tablet RxNorm: 921095 Take 1.5 Tablet(s) Oral HS at bed time 09/13/19 24 024 Inactive sertraline 100 mg tablet RxNorm: 012230 Take 1 Tablet(s) Oral QD 07/29/19 Inactive Please authorize cycle refill. Thanks. acetaminophen 500 mg tablet RxNorm: 426369 Take 2 Tablet(s) Oral BID as needed 07/20/19 24 Inactive acetaminophen 500 mg tablet RxNorm: 951949 Take 2 Tablet(s) Oral BID as needed 07/20/19 Inactive sertraline 100 mg tablet RxNorm: 553396 Take 1 Tablet(s) Oral QD 07/13/19 024 Inactive donepezil 5 mg tablet RxNorm: 443901 TAKE ONE-HALF TABLET (2.5MG) BY MOUTH ONCE DAILY 07/05/20 023 Inactive Cycle refill request. Cycle restarts (07/19/23). risperidone 1 mg tablet RxNorm: 438619 Take 1 Tablet(s) Oral HS at bed time 06/25/20 024 Inactive trazodone 50 mg tablet RxNorm: 124503 Take 1 Tablet(s) Oral QHS every night at bedtime as needed 06/25/20 23 024 Inactive quetiapine 25 mg tablet RxNorm: 854773 Take 1 Tablet(s) Oral Q4H every four hours as needed 06/25/20 23 024 Inactive Senna-S 8.6 mg-50 mg tablet RxNorm: 596547 Take 1 Tablet(s) Oral BID as needed 06/25/20 23 023 Inactive trazodone 50 mg tablet RxNorm: 309311 Take 1 Tablet(s) Oral QHS every night at bedtime as needed 06/25/20 023 Inactive Senna-S 8.6 mg-50 mg tablet RxNorm: 324691 Take 1 Tablet(s) Oral BID as needed 06/25/20 024 Inactive acetaminophen 500 mg tablet RxNorm: 296412 Take 2 Tablet(s) Oral BID as needed 06/18/20 024 Inactive acetaminophen 500 mg tablet RxNorm: 879682 Take 2 Tablet(s) Oral BID as needed 06/18/20 023 Inactive Excedrin Extra Strength 250 mg-250 mg-65 mg tablet RxNorm: 178852 Take 2 Tablet(s) Oral QD as needed 06/18/20 Inactive Excedrin Extra Strength 250 mg-250 mg-65 mg tablet RxNorm: 385271 Take 2 Tablet(s) Oral QD as needed 06/18/20 024 Inactive risperidone 1 mg tablet RxNorm: 828189 Take 1 Tablet(s) Oral BID 06/04/20 023 Inactive quetiapine 25 mg tablet RxNorm: 028662 Take 1 Tablet(s) Oral BID as needed 06/04/20 023 Inactive trazodone 50 mg tablet RxNorm: 190461 Take 1 Tablet(s) Oral QHS every night at bedtime 06/04/20 023 Inactive donepezil 10 mg tablet RxNorm: 764464 Take 1 Tablet(s) Oral QD 06/04/20 024 Inactive risperidone 1 mg tablet RxNorm: 218282 Take 1 Tablet(s) Oral BID as needed 06/04/20 023 Inactive Senexon-S 8.6 mg-50 mg tablet RxNorm: 0146280 Take 1 Tablet(s) Oral BID 06/03/20 023 Inactive Please authorize quantity 90 day supply with PRN refills for assisted living patient. Their cycle restarts 06/14/23. Thank you! memantine 5 mg tablet RxNorm: 889956 TAKE ONE-HALF TABLET (2.5MG) BY MOUTH TWICE DAILY 06/03/20 023 Inactive Please authorize quantity 90 day supply with PRN refills for assisted living patient. Their cycle restarts 06/14/23. Thank you! divalproex 125 mg capsule,delayed release sprinkle RxNorm: 4337829 TAKE 4 CAPSULES (500MG) BY MOUTH AT BEDTIME 06/03/20 024 Inactive Please authorize quantity 90 day supply with PRN refills for assisted living patient. Their cycle restarts 06/14/23. Thank you! sertraline 50 mg tablet RxNorm: 128393 Take 1 Tablet(s) Oral QD 06/03/20 024 Inactive Please authorize quantity 90 day supply with PRN refills for assisted living patient. Their cycle restarts 06/14/23. Thank you! naproxen 500 mg tablet RxNorm: 640182 Take 1 Tablet(s) Oral BID 01/23/20 23 023 Inactive naproxen 500 mg tablet RxNorm: 990480 Take 1 Tablet(s) Oral BID 01/23/20 23 023 Inactive naproxen 500 mg tablet RxNorm: 242538 Take 1 Tablet(s) Oral BID 01/23/20 23 023 Inactive mirtazapine 15 mg tablet RxNorm: 989772 Take 1 Tablet(s) Oral HS at bed time 01/01/20 023 Inactive CYCLE FILL REQUEST FOR CYCLE THAT STARTS 01/04/2023 escitalopram 10 mg tablet RxNorm: 296468 Take 1 Tablet(s) Oral QAM every morning 12/14/19 23 023 Inactive Cycle refill request. Cycle restarts (01/04/23). cholecalciferol (vitamin D3) 50 mcg (2,000 unit) tablet RxNorm: 151423 Take 1 Tablet(s) Oral QAM every morning 12/14/19 23 023 Inactive Cycle refill request. Cycle restarts (01/04/23). melatonin 10 mg sublingual tablet RxNorm: 8282482 TAKE 1 TABLET BY MOUTH AT BEDTIME NOTE DOSAGE/STRENGTH* 12/14/19 23 023 Inactive Cycle refill request. Cycle restarts (01/04/23). rivastigmine 1.5 mg capsule RxNorm: 214307 Take 1 Capsule(s) Oral BID 12/14/19 23 023 Inactive Cycle refill request. Cycle restarts (01/04/23). quetiapine 100 mg tablet RxNorm: 614226 Take 1 Tablet(s) Oral HS at bed time 12/14/19 23 023 Inactive Cycle refill request. Cycle restarts (01/04/23). levothyroxine 50 mcg tablet RxNorm: 640507 TAKE 1 TABLET BY MOUTH ONCE DAILY BEFORE BREAKFAST 12/14/19 23 023 Inactive Cycle refill request. Cycle restarts (01/04/23). amlodipine 5 mg tablet RxNorm: 701854 Take 1 Tablet(s) Oral QAM every morning 12/14/19 23 023 Inactive Cycle refill request. Cycle restarts (01/04/23). buspirone 15 mg tablet RxNorm: 734052 Take 1 Tablet(s) Oral BID 12/14/19 23 023 Inactive Cycle refill request. Cycle restarts (01/04/23). amitriptyline 10 mg tablet RxNorm: 965094 Take 1 Tablet(s) Oral HS at bed time 12/14/19 23 023 Inactive Cycle refill request. Cycle restarts (01/04/23). levofloxacin 500 mg tablet RxNorm: 344590 Take 1 Tablet(s) Oral QD 11/24/19 23 023 Inactive levofloxacin 500 mg tablet RxNorm: 596288 Take 1 Tablet(s) Oral QD 11/24/19 23 023 Inactive levothyroxine 50 mcg tablet RxNorm: 473800 Take 1 Tablet(s) Oral QD before Breakfast 11/18/19 23 023 Inactive amitriptyline 10 mg tablet RxNorm: 178030 Take 1 Tablet(s) Oral QHS every night at bedtime 11/18/19 23 023 Inactive acetaminophen 500 mg tablet RxNorm: 842216 2 Tablet(s) Oral TID as needed 11/18/19 023 Inactive amlodipine 5 mg tablet RxNorm: 660001 Take 1 Tablet(s) Oral QAM every morning 11/18/19 023 Inactive melatonin 5 mg tablet RxNorm: 753889 Give 1 Tablet(s) Oral QHS every night at bedtime 11/18/19 023 Inactive buspirone 15 mg tablet RxNorm: 047521 Take 1 Tablet(s) Oral BID 11/18/19 023 Inactive Seroquel 25 mg tablet RxNorm: 140391 Take 1 Tablet(s) Oral QHS every night at bedtime 11/18/19 023 Inactive cholecalciferol (vitamin D3) 50 mcg (2,000 unit) tablet RxNorm: 523266 Take 1 Tablet(s) Oral QD 11/18/19 023 Inactive rivastigmine 1.5 mg capsule RxNorm: 317184 Take 2 Capsule(s) Oral BID 11/18/19 023 Inactive mirtazapine 15 mg tablet RxNorm: 962340 Take 1 Tablet(s) Oral QHS every night at bedtime 11/18/19 023 Inactive aspirin-acetaminoph en-caffeine 250 mg-250 mg-65 mg tablet RxNorm: 482385 Take 2 Tablet(s) Oral QD as needed 11/18/19 023 Inactive escitalopram 10 mg tablet RxNorm: 820404 Take 1 Tablet(s) Oral QD 11/18/19 023 Inactive Medication Administered No Medication Administered data Immunizations Vaccine Codes Dose Date Status Influenza CVX: 205 1.0 04/06/2022 Covid-19 (KSKT mR NA, LNP-S, PF, 30 mcg/0.3 mL [...] Date Patient Education: Patient Medication Summary Completed 12/06/2023 Appointment: Aida Sr WPtel: [address] [place], [place] [id number] [place] F/U 09/17/2023 Appointment: Aida Sr WPtel: [address] [place], [place] [id number] [place] F/U 07/23/2023 Appointment: Aida Sr WPtel: [address] [place], [place] [phone] [place] F/U 06/25/2023 Appointment: Bam Frey: [address] [place], [place] [phone] [place] SDV 01/22/2023 Appointment: Aida Sr WPtel: [address] [place] [address] [address] [id number] NPAWV 11/20/2022 Referral: General Psychiatrist Referral Patient/Family Scheduling Appointment Referral: VIA Orthopedics- I n Home Visits WPtel: [address], [address] [id number] Referral Order Note Incomplete Instructions Comment Date Elderly female residing in [facility] assisted living at [facility]. PMHx: dementia, cluster B personality traits, depression, hypothyroidism, HTN, anxiety, suicidal ideationsPOLST: FULL CODEFred Anatoly-spouse, Yoks: -therapist: weekly calls usually on :1 visits 3 times weekly 01/28/2024
--- OUTSIDE RECORDS SUMMARY | 2024-09-10 16:26 | XMS_ITS | CCD ---
Author Organization Unknown Care Team Providers Care Liquor Maker Name Role Phone Aida Sr CNP Primary Care Provider Unavaila ble Aida Sr CNP Chronic Care Management Unavai lable Summary Purpose DataExchange Insurance Providers Payer name Policy type / Coverage type Covered libertarian ID Effective Begin Date Effective End Date [employer] Commercial Insurance [id number] Unknown Family history Runs in the family Diagnosis Age At Onset No Known Diseases N/A Social History Social History Element Codes Description Effec tive Dates Marital status Unknown 01/28/2024 Living arrangements Unknown Memory Care 01/28/[address]: 824244927 Never smoker 01/[address]: 248487413 No Alcohol Consum ption 01/28/2024 Sexually Active? [...] Start Date Stop Date Status Fill Instructions trazodone 50 mg tablet RxNorm: 470181 Take 1 Tablet(s) Oral QHS every night at bedtime 09/08/19 25 025 Inactive Calmoseptine 0.44 %-20.6 % topical ointment RxNorm: 7610166 Apply Topical TID as needed to Buttocks and affected areas 08/26/19 25 025 Active Calmoseptine 0.44 %-20.6 % topical ointment RxNorm: 8489988 Apply ointment Topical TID as needed to Buttocks and affected areas 08/26/19 25 025 Inactive ondansetron 4 mg disintegrating tablet RxNorm: 161169 Take 1 Tablet(s) Oral Q4H every four hours as needed 08/25/19 25 025 Inactive ondansetron 4 mg disintegrating tablet RxNorm: 527318 Take 1 Tablet(s) Oral Q4H every four hours as needed 08/25/19 25 025 Inactive sertraline 100 mg tablet RxNorm: 053577 Take 1 Tablet(s) Oral QD 08/14/19 025 Inactive REFILL REQUEST FOR CYCLE THAT STARTS ON 09/11/24. THANK YOU. donepezil 5 mg tablet RxNorm: 396072 TAKE ONE-HALF TABLET (2.5MG) BY MOUTH ONCE DAILY 07/20/19 25 049 Active CYCLE FILL REFILL REQUEST FOR CYCLE FILL THAT STARTS 08/14/2024 Senexon-S 8.6 mg-50 mg tablet RxNorm: 0176032 Take 1 Tablet(s) Oral BID as needed 06/30/20 24 028 Active risperidone 1 mg tablet RxNorm: 044061 Take 1 Tablet(s) Oral BID 06/26/20 24 025 Active memantine 5 mg tablet RxNorm: 861806 TAKE ONE-HALF TABLET (2.5MG) BY MOUTH TWICE DAILY 06/23/20 24 049 Active REFILL REQUEST FOR CYCLE THAT BEGINS 07/17, THANK YOU risperidone 0.5 mg tablet RxNorm: 173424 Take 1 Tablet(s) Oral QAM every morning 03/14/20 24 024 Inactive acetaminophen 500 mg tablet RxNorm: 567007 Take 2 Tablet(s) Oral TID as needed 02/22/20 24 No Stop Date Active risperidone 1 mg tablet RxNorm: 739486 Take 1 Tablet(s) Oral HS at bed time 02/22/20 24 024 Inactive acetaminophen 500 mg tablet RxNorm: 744777 Take 2 Tablet(s) Oral TID as needed 02/22/20 24 024 Inactive sertraline 100 mg tablet RxNorm: 227586 Take 1 Tablet(s) Oral QD Take w/ 50mg tablet 01/27/20 24 025 Active sertraline 50 mg tablet RxNorm: 714120 Take 1 Tablet(s) Oral QD Take w/ 100mg tablet 01/27/20 24 025 Active acetaminophen 500 mg tablet RxNorm: 504962 Take 2 Tablet(s) Oral TID as needed 01/27/20 24 024 Inactive amlodipine 5 mg tablet RxNorm: 380727 Take 1 Tablet(s) Oral QAM every morning 01/09/20 24 048 Active REFILL REQUEST FOR CYCLE THAT BEGINS 01/30, THANK YOU! levothyroxine 50 mcg tablet RxNorm: 754520 Take 1 Tablet(s) Oral QD BEFORE BREAKFAST 01/09/20 24 048 Active REFILL REQUEST FOR CYCLE THAT BEGINS 01/30, THANK YOU! cholecalciferol (vitamin D3) 50 mcg (2,000 unit) tablet RxNorm: 812229 Take 1 Tablet(s) Oral QAM every morning 01/09/20 24 048 Active REFILL REQUEST FOR CYCLE THAT BEGINS 01/30, THANK YOU! risperidone 0.5 mg tablet RxNorm: 596982 Take 1 Tablet(s) Oral BID 01/09/20 24 024 Inactive REFILL REQUEST FOR CYCLE THAT BEGINS 01/30, THANK YOU! sertraline 50 mg tablet RxNorm: 637519 TAKE 1 TABLET BY MOUTH ONCE DAILY. TAKE ALONG WITH 100 MG TABLET DAILY FOR A TOTAL DOSE OF 150 MG 01/09/20 24 024 Inactive REFILL REQUEST FOR CYCLE THAT BEGINS 01/30, THANK YOU! risperidone 0.5 mg tablet RxNorm: 562204 Take 1 Tablet(s) Oral BID 01/07/20 24 024 Inactive levofloxacin 500 mg tablet RxNorm: 758334 Take 1 Tablet(s) Oral QD 12/31/19 24 Inactive acetaminophen 500 mg tablet RxNorm: 765270 Take 2 Tablet(s) Oral TID 12/31/19 24 024 Inactive levofloxacin 500 mg tablet RxNorm: 451228 Take 1 Tablet(s) Oral QD 12/31/19 24 024 Inactive divalproex ER 250 mg tablet,extended release 24 hr RxNorm: 9479709 TAKE 1 TABLET BY MOUTH AT BEDTIME HAZARDOUS DRUG-DOUBLE GLOVE 10/21/19 24 048 Active CYCLE FILL REFILL REQUEST FOR CYCLE FILL THAT STARTS 11/08/2023. risperidone 1 mg tablet RxNorm: 122037 Take 1 Tablet(s) Oral BID 10/21/19 24 024 Inactive CYCLE FILL REFILL REQUEST FOR CYCLE FILL THAT STARTS 11/08/2023. acetaminophen 500 mg tablet RxNorm: 982417 Take 2 Tablet(s) Oral BID as needed 09/13/19 24 024 Inactive Tylenol Extra Strength 500 mg tablet RxNorm: 170869 Take 2 Tablet(s) Oral BID as needed 09/13/19 24 024 Inactive trazodone 50 mg tablet RxNorm: 396651 Take 1 Tablet(s) Oral QHS every night at bedtime 09/13/19 24 024 Inactive quetiapine 100 mg tablet RxNorm: 165500 Take 1.5 Tablet(s) Oral HS at bed time 09/13/19 24 024 Inactive Senexon-S 8.6 mg-50 mg tablet RxNorm: 5606953 Take 1 Tablet(s) Oral BID as needed 09/13/19 24 025 Inactive sertraline 100 mg tablet RxNorm: 066173 Take 1.5 Tablet(s) Oral QD 09/13/19 24 024 Inactive Pain Reliever Plus 250 mg-250 mg-65 mg tablet RxNorm: 476907 Take 2 Tablet(s) Oral QD as needed 09/13/19 24 024 Inactive sertraline 100 mg tablet RxNorm: 818391 Take 1 Tablet(s) Oral QD 07/29/19 024 Inactive Please authorize cycle refill. Thanks. acetaminophen 500 mg tablet RxNorm: 449832 Take 2 Tablet(s) Oral BID as needed 07/20/19 24 024 Inactive acetaminophen 500 mg tablet RxNorm: 741852 Take 2 Tablet(s) Oral BID as needed 07/20/19 24 024 Inactive sertraline 100 mg tablet RxNorm: 742369 Take 1 Tablet(s) Oral QD 07/13/19 024 Inactive donepezil 5 mg tablet RxNorm: 377055 TAKE ONE-HALF TABLET (2.5MG) BY MOUTH ONCE DAILY 07/05/20 Inactive Cycle refill request. Cycle restarts (07/19/23). risperidone 1 mg tablet RxNorm: 670050 Take 1 Tablet(s) Oral HS at bed time 06/25/20 024 Inactive trazodone 50 mg tablet RxNorm: 773461 Take 1 Tablet(s) Oral QHS every night at bedtime as needed 06/25/20 024 Inactive quetiapine 25 mg tablet RxNorm: 410496 Take 1 Tablet(s) Oral Q4H every four hours as needed 06/25/20 23 024 Inactive Senna-S 8.6 mg-50 mg tablet RxNorm: 983525 Take 1 Tablet(s) Oral BID as needed 06/25/20 23 023 Inactive trazodone 50 mg tablet RxNorm: 497898 Take 1 Tablet(s) Oral QHS every night at bedtime as needed 06/25/20 23 023 Inactive Senna-S 8.6 mg-50 mg tablet RxNorm: 373412 Take 1 Tablet(s) Oral BID as needed 06/25/20 23 024 Inactive acetaminophen 500 mg tablet RxNorm: 880366 Take 2 Tablet(s) Oral BID as needed 06/18/20 23 024 Inactive acetaminophen 500 mg tablet RxNorm: 564726 Take 2 Tablet(s) Oral BID as needed 12/05/28 23 023 Inactive Excedrin Extra Strength 250 mg-250 mg-65 mg tablet RxNorm: 602606 Take 2 Tablet(s) Oral QD as needed 06/18/20 023 Inactive Excedrin Extra Strength 250 mg-250 mg-65 mg tablet RxNorm: 947263 Take 2 Tablet(s) Oral QD as needed 06/18/20 024 Inactive risperidone 1 mg tablet RxNorm: 702539 Take 1 Tablet(s) Oral BID 06/04/20 023 Inactive quetiapine 25 mg tablet RxNorm: 055216 Take 1 Tablet(s) Oral BID as needed 06/04/20 023 Inactive trazodone 50 mg tablet RxNorm: 649446 Take 1 Tablet(s) Oral QHS every night at bedtime 06/04/20 023 Inactive donepezil 10 mg tablet RxNorm: 255224 Take 1 Tablet(s) Oral QD 06/04/20 024 Inactive risperidone 1 mg tablet RxNorm: 029474 Take 1 Tablet(s) Oral BID as needed 06/04/20 023 Inactive Senexon-S 8.6 mg-50 mg tablet RxNorm: 0201204 Take 1 Tablet(s) Oral BID 06/03/20 023 Inactive Please authorize quantity 90 day supply with PRN refills for assisted living patient. Their cycle restarts 06/14/23. Thank you! memantine 5 mg tablet RxNorm: 508569 TAKE ONE-HALF TABLET (2.5MG) BY MOUTH TWICE DAILY 06/03/20 023 Inactive Please authorize quantity 90 day supply with PRN refills for assisted living patient. Their cycle restarts 06/14/23. Thank you! divalproex 125 mg capsule,delayed release sprinkle RxNorm: 2499502 TAKE 4 CAPSULES (500MG) BY MOUTH AT BEDTIME 06/03/20 024 Inactive Please authorize quantity 90 day supply with PRN refills for assisted living patient. Their cycle restarts 06/14/23. Thank you! sertraline 50 mg tablet RxNorm: 245282 Take 1 Tablet(s) Oral QD 06/03/20 23 024 Inactive Please authorize quantity 90 day supply with PRN refills for assisted living patient. Their cycle restarts 06/14/23. Thank you! naproxen 500 mg tablet RxNorm: 471967 Take 1 Tablet(s) Oral BID 01/23/20 23 023 Inactive naproxen 500 mg tablet RxNorm: 948211 Take 1 Tablet(s) Oral BID 01/23/20 023 Inactive naproxen 500 mg tablet RxNorm: 572077 Take 1 Tablet(s) Oral BID 01/23/20 023 Inactive mirtazapine 15 mg tablet RxNorm: 320045 Take 1 Tablet(s) Oral HS at bed time 01/01/20 023 Inactive CYCLE FILL REQUEST FOR CYCLE THAT STARTS 01/04/2023 escitalopram 10 mg tablet RxNorm: 170154 Take 1 Tablet(s) Oral QAM every morning 12/14/19 023 Inactive Cycle refill request. Cycle restarts (01/04/23). cholecalciferol (vitamin D3) 50 mcg (2,000 unit) tablet RxNorm: 797533 Take 1 Tablet(s) Oral QAM every morning 12/14/19 23 023 Inactive Cycle refill request. Cycle restarts (01/04/23). melatonin 10 mg sublingual tablet RxNorm: 1845298 TAKE 1 TABLET BY MOUTH AT BEDTIME NOTE DOSAGE/STRENGTH* 12/14/19 023 Inactive Cycle refill request. Cycle restarts (01/04/23). rivastigmine 1.5 mg capsule RxNorm: 908795 Take 1 Capsule(s) Oral BID 12/14/19 023 Inactive Cycle refill request. Cycle restarts (01/04/23). quetiapine 100 mg tablet RxNorm: 936476 Take 1 Tablet(s) Oral HS at bed time 12/14/19 23 023 Inactive Cycle refill request. Cycle restarts (01/04/23). levothyroxine 50 mcg tablet RxNorm: 330777 TAKE 1 TABLET BY MOUTH ONCE DAILY BEFORE BREAKFAST 12/14/19 23 023 Inactive Cycle refill request. Cycle restarts (01/04/23). amlodipine 5 mg tablet RxNorm: 564016 Take 1 Tablet(s) Oral QAM every morning 12/14/19 23 023 Inactive Cycle refill request. Cycle restarts (01/04/23). buspirone 15 mg tablet RxNorm: 951962 Take 1 Tablet(s) Oral BID 12/14/19 23 023 Inactive Cycle refill request. Cycle restarts (01/04/23). amitriptyline 10 mg tablet RxNorm: 332091 Take 1 Tablet(s) Oral HS at bed time 12/14/19 23 023 Inactive Cycle refill request. Cycle restarts (01/04/23). levofloxacin 500 mg tablet RxNorm: 301689 Take 1 Tablet(s) Oral QD 11/24/19 23 023 Inactive levofloxacin 500 mg tablet RxNorm: 580785 Take 1 Tablet(s) Oral QD 11/24/19 23 023 Inactive levothyroxine 50 mcg tablet RxNorm: 194029 Take 1 Tablet(s) Oral QD before Breakfast 11/18/19 23 023 Inactive amitriptyline 10 mg tablet RxNorm: 255008 Take 1 Tablet(s) Oral QHS every night at bedtime 11/18/19 23 023 Inactive acetaminophen 500 mg tablet RxNorm: 443564 2 Tablet(s) Oral TID as needed 11/18/19 23 023 Inactive amlodipine 5 mg tablet RxNorm: 353219 Take 1 Tablet(s) Oral QAM every morning 11/18/19 23 023 Inactive melatonin 5 mg tablet RxNorm: 512004 Give 1 Tablet(s) Oral QHS every night at bedtime 11/18/19 23 023 Inactive buspirone 15 mg tablet RxNorm: 549044 Take 1 Tablet(s) Oral BID 11/18/19 23 023 Inactive Seroquel 25 mg tablet RxNorm: 017106 Take 1 Tablet(s) Oral QHS every night at bedtime 11/18/19 023 Inactive cholecalciferol (vitamin D3) 50 mcg (2,000 unit) tablet RxNorm: 963074 Take 1 Tablet(s) Oral QD 11/18/19 023 Inactive rivastigmine 1.5 mg capsule RxNorm: 493140 Take 2 Capsule(s) Oral BID 11/18/19 023 Inactive mirtazapine 15 mg tablet RxNorm: 660099 Take 1 Tablet(s) Oral QHS every night at bedtime 11/18/19 023 Inactive aspirin-acetaminoph en-caffeine 250 mg-250 mg-65 mg tablet RxNorm: 696372 Take 2 Tablet(s) Oral QD as needed 11/18/19 023 Inactive escitalopram 10 mg tablet RxNorm: 037344 Take 1 Tablet(s) Oral QD 11/18/19 023 Inactive Medication Administered No Medication Administered data Immunizations Vaccine Codes Dose Date Status Influenza CVX: 205 1.0 04/06/2022 Covid-19 ([employer] mR NA, LNP-S, PF, 30 mcg/0.3 mL [...] WPtel: [address], [address] [id number] Referral Order Note Incomplete Instructions Comment Date Elderly female residing in [facility] assisted living at [facility]. PMHx: dementia, cluster B personality traits, depression, hypothyroidism, HTN, anxiety, suicidal ideationsPOLST: FULL CODEFred Anatoly-spouse, Tcbi: November/Scotty-therapist: weekly calls usually on -:1 visits 3 times weekly 01/28/2024
--- OUTSIDE RECORDS SUMMARY | 2024-09-10 16:26 | XMS_ITS | CCD ---
Author Name Aida Sr CNP Address [address] [place] [address] Phone Organization [facility] Phone Care Team Providers Care Child Support Officer Name Role Phone Aida Sr CNP Primary Care Provider Unavaila ble Orin BARLEY STEEPERAida Chronic Care Management Unavai lable Summary Purpose DataExchange Insurance Providers Payer name Policy type / Coverage type Covered green party ID Effective Begin Date Effective End Date [employer] Commercial Insurance [id number] Unknown Family History Family History data not found Allergies, Adverse Reactions, Alerts Substance Reaction Codes Entered Date Inactivated Date Status Sulfa Unknown 11/14/2022 No Inactive Date Ac tive Problems Condition Codes Effective Dates Condition St atus Dementia ICD-10: F03.90 ICD-9: 294.20 09/17/2023 Active [...] Start Date Stop Date Status Fill Instructions Tylenol Extra Strength 500 mg tablet RxNorm: 163077 Take 2 Tablet(s) Oral BID as needed 09/13/19 24 024 Inactive trazodone 50 mg tablet RxNorm: 707223 Take 1 Tablet(s) Oral QHS every night at bedtime 09/13/19 24 024 Inactive quetiapine 100 mg tablet RxNorm: 564943 Take 1.5 Tablet(s) Oral HS at bed time 09/13/19 24 024 Inactive Senexon-S 8.6 mg-50 mg tablet RxNorm: 4752972 Take 1 Tablet(s) Oral BID as needed 09/13/19 24 025 Inactive sertraline 100 mg tablet RxNorm: 672379 Take 1.5 Tablet(s) Oral QD 09/13/19 24 024 Inactive Pain Reliever Plus 250 mg-250 mg-65 mg tablet RxNorm: 993652 Take 2 Tablet(s) Oral QD as needed 09/13/19 24 024 Inactive acetaminophen 500 mg tablet RxNorm: 135315 Take 2 Tablet(s) Oral BID as needed 09/13/19 24 024 Inactive sertraline 100 mg tablet RxNorm: 674352 Take 1 Tablet(s) Oral QD 07/29/19 24 Inactive Please authorize cycle refill. Thanks. acetaminophen 500 mg tablet RxNorm: 944013 Take 2 Tablet(s) Oral BID as needed 07/20/19 24 024 Inactive acetaminophen 500 mg tablet RxNorm: 765117 Take 2 Tablet(s) Oral BID as needed 07/20/19 24 024 Inactive sertraline 100 mg tablet RxNorm: 215547 Take 1 Tablet(s) Oral QD 07/13/19 024 Inactive donepezil 5 mg tablet RxNorm: 499143 TAKE ONE-HALF TABLET (2.5MG) BY MOUTH ONCE DAILY 07/05/20 023 Inactive Cycle refill request. Cycle restarts (07/19/23). risperidone 1 mg tablet RxNorm: 242530 Take 1 Tablet(s) Oral HS at bed time 06/25/20 024 Inactive quetiapine 25 mg tablet RxNorm: 091770 Take 1 Tablet(s) Oral Q4H every four hours as needed 06/25/20 23 024 Inactive trazodone 50 mg tablet RxNorm: 049301 Take 1 Tablet(s) Oral QHS every night at bedtime as needed 06/25/20 23 024 Inactive Senna-S 8.6 mg-50 mg tablet RxNorm: 896337 Take 1 Tablet(s) Oral BID as needed 06/25/20 23 023 Inactive trazodone 50 mg tablet RxNorm: 083096 Take 1 Tablet(s) Oral QHS every night at bedtime as needed 06/25/20 23 023 Inactive Senna-S 8.6 mg-50 mg tablet RxNorm: 632915 Take 1 Tablet(s) Oral BID as needed 06/25/20 024 Inactive acetaminophen 500 mg tablet RxNorm: 330951 Take 2 Tablet(s) Oral BID as needed 06/18/20 23 024 Inactive acetaminophen 500 mg tablet RxNorm: 168766 Take 2 Tablet(s) Oral BID as needed 06/18/20 023 Inactive Excedrin Extra Strength 250 mg-250 mg-65 mg tablet RxNorm: 303790 Take 2 Tablet(s) Oral QD as needed 06/18/20 023 Inactive Excedrin Extra Strength 250 mg-250 mg-65 mg tablet RxNorm: 174664 Take 2 Tablet(s) Oral QD as needed 06/18/20 024 Inactive risperidone 1 mg tablet RxNorm: 360926 Take 1 Tablet(s) Oral BID 06/04/20 023 Inactive quetiapine 25 mg tablet RxNorm: 298966 Take 1 Tablet(s) Oral BID as needed 06/04/20 023 Inactive trazodone 50 mg tablet RxNorm: 280996 Take 1 Tablet(s) Oral QHS every night at bedtime 06/04/20 023 Inactive donepezil 10 mg tablet RxNorm: 182424 Take 1 Tablet(s) Oral QD 06/04/20 024 Inactive risperidone 1 mg tablet RxNorm: 682154 Take 1 Tablet(s) Oral BID as needed 06/04/20 023 Inactive Senexon-S 8.6 mg-50 mg tablet RxNorm: 3354327 Take 1 Tablet(s) Oral BID 06/03/20 023 Inactive Please authorize quantity 90 day supply with PRN refills for assisted living patient. Their cycle restarts 06/14/23. Thank you! memantine 5 mg tablet RxNorm: 497127 TAKE ONE-HALF TABLET (2.5MG) BY MOUTH TWICE DAILY 06/03/20 023 Inactive Please authorize quantity 90 day supply with PRN refills for assisted living patient. Their cycle restarts 06/14/23. Thank you! divalproex 125 mg capsule,delayed release sprinkle RxNorm: 1256714 TAKE 4 CAPSULES (500MG) BY MOUTH AT BEDTIME 06/03/20 024 Inactive Please authorize quantity 90 day supply with PRN refills for assisted living patient. Their cycle restarts 06/14/23. Thank you! sertraline 50 mg tablet RxNorm: 040949 Take 1 Tablet(s) Oral QD 06/03/20 024 Inactive Please authorize quantity 90 day supply with PRN refills for assisted living patient. Their cycle restarts 06/14/23. Thank you! naproxen 500 mg tablet RxNorm: 541279 Take 1 Tablet(s) Oral BID 01/23/20 023 Inactive naproxen 500 mg tablet RxNorm: 921144 Take 1 Tablet(s) Oral BID 01/23/20 23 023 Inactive naproxen 500 mg tablet RxNorm: 898341 Take 1 Tablet(s) Oral BID 01/23/20 023 Inactive mirtazapine 15 mg tablet RxNorm: 112987 Take 1 Tablet(s) Oral HS at bed time 01/01/20 023 Inactive CYCLE FILL REQUEST FOR CYCLE THAT STARTS 01/04/2023 escitalopram 10 mg tablet RxNorm: 967670 Take 1 Tablet(s) Oral QAM every morning 12/14/19 023 Inactive Cycle refill request. Cycle restarts (01/04/23). cholecalciferol (vitamin D3) 50 mcg (2,000 unit) tablet RxNorm: 590883 Take 1 Tablet(s) Oral QAM every morning 12/14/19 23 023 Inactive Cycle refill request. Cycle restarts (01/04/23). melatonin 10 mg sublingual tablet RxNorm: 0150780 TAKE 1 TABLET BY MOUTH AT BEDTIME NOTE DOSAGE/STRENGTH* 12/14/19 023 Inactive Cycle refill request. Cycle restarts (01/04/23). rivastigmine 1.5 mg capsule RxNorm: 682868 Take 1 Capsule(s) Oral BID 12/14/19 023 Inactive Cycle refill request. Cycle restarts (01/04/23). quetiapine 100 mg tablet RxNorm: 501699 Take 1 Tablet(s) Oral HS at bed time 12/14/19 23 023 Inactive Cycle refill request. Cycle restarts (01/04/23). levothyroxine 50 mcg tablet RxNorm: 435800 TAKE 1 TABLET BY MOUTH ONCE DAILY BEFORE BREAKFAST 12/14/19 23 023 Inactive Cycle refill request. Cycle restarts (01/04/23). amlodipine 5 mg tablet RxNorm: 992683 Take 1 Tablet(s) Oral QAM every morning 12/14/19 23 023 Inactive Cycle refill request. Cycle restarts (01/04/23). buspirone 15 mg tablet RxNorm: 987616 Take 1 Tablet(s) Oral BID 12/14/19 23 023 Inactive Cycle refill request. Cycle restarts (01/04/23). amitriptyline 10 mg tablet RxNorm: 071239 Take 1 Tablet(s) Oral HS at bed time 12/14/19 23 023 Inactive Cycle refill request. Cycle restarts (01/04/23). levofloxacin 500 mg tablet RxNorm: 817150 Take 1 Tablet(s) Oral QD 11/24/19 23 023 Inactive levofloxacin 500 mg tablet RxNorm: 147186 Take 1 Tablet(s) Oral QD 11/24/19 23 023 Inactive levothyroxine 50 mcg tablet RxNorm: 292235 Take 1 Tablet(s) Oral QD before Breakfast 11/18/19 23 023 Inactive amitriptyline 10 mg tablet RxNorm: 101241 Take 1 Tablet(s) Oral QHS every night at bedtime 11/18/19 23 023 Inactive acetaminophen 500 mg tablet RxNorm: 402128 2 Tablet(s) Oral TID as needed 11/18/19 23 023 Inactive amlodipine 5 mg tablet RxNorm: 593439 Take 1 Tablet(s) Oral QAM every morning 11/18/19 23 023 Inactive melatonin 5 mg tablet RxNorm: 020642 Give 1 Tablet(s) Oral QHS every night at bedtime 11/18/19 23 023 Inactive buspirone 15 mg tablet RxNorm: 507826 Take 1 Tablet(s) Oral BID 11/18/19 23 023 Inactive Seroquel 25 mg tablet RxNorm: 876843 Take 1 Tablet(s) Oral QHS every night at bedtime 11/18/19 023 Inactive cholecalciferol (vitamin D3) 50 mcg (2,000 unit) tablet RxNorm: 872845 Take 1 Tablet(s) Oral QD 11/18/19 023 Inactive rivastigmine 1.5 mg capsule RxNorm: 084117 Take 2 Capsule(s) Oral BID 11/18/19 023 Inactive mirtazapine 15 mg tablet RxNorm: 849048 Take 1 Tablet(s) Oral QHS every night at bedtime 11/18/19 023 Inactive aspirin-acetaminoph en-caffeine 250 mg-250 mg-65 mg tablet RxNorm: 236108 Take 2 Tablet(s) Oral QD as needed 11/18/19 023 Inactive escitalopram 10 mg tablet RxNorm: 732076 Take 1 Tablet(s) Oral QD 11/18/19 023 Inactive Medication Administered No Medication Administered data Immunizations Vaccine Codes Dose Date Status Influenza CVX: 205 1.0 04/06/2022 Covid-19 ([employer] mR NA, LNP-S, PF, 30 mcg/0.3 mL [...] Item Item Code Result Date Service Location Comprehensive Metabolic Panel 19771 Sodium 2951-2 138 mmol/L 10/12/19 24 Unknown Comprehensive Metabolic Panel 52217 POTASSIUM ([facility]) 2823-3 4.3 mmol/L 10/12/19 24 Unknown Comprehensive Metabolic Panel 91466 UREA NITROGEN ([place]) 11.7 mg/dL 10/12/19 24 Unknown Comprehensive Metabolic Panel 21195 CHLORIDE ([place]) 103 mmol/L 10/12/19 24 Unknown Comprehensive Metabolic Panel 44654 CO2 ([place]) 23 mmol/L 10/12/19 24 Unknown Comprehensive Metabolic Panel 77450 ANION GAP ([place]) 12 mmol/L 10/12/19 24 Unknown Comprehensive Metabolic Panel 86677 Creatinine 2160-0 0.61 mg/dL 10/12/19 24 Unknown Comprehensive Metabolic Panel 43372 GLUCOSE ([place]) 2345-7 89 mg/dL 10/12/19 24 Unknown Comprehensive Metabolic Panel 18723 Calcium 38912-8 9.7 mg/dL 10/12/19 24 Unknown Comprehensive Metabolic Panel 52294 Alkaline Phosphatase 77 U/L 10/12/19 24 Unknown Comprehensive Metabolic Panel 69668 AST 30 U/L 10/12/19 24 Unknown Comprehensive Metabolic Panel 27124 ALT 44 U/L 10/12/19 24 Unknown Comprehensive Metabolic Panel 60125 PROTEIN, TOTAL 2885-2 6.6 g/dL 10/12/19 24 Unknown Comprehensive Metabolic Panel 88797 Albumin 1751-7 4.4 g/dL 10/12/19 24 Unknown Comprehensive Metabolic Panel 79623 GFR, ESTIMATE 35813-7 86 mL/min/1.7 3m2 10/12/19 24 Unknown Comprehensive Metabolic Panel 05283 Bilirubin Total 0.5 mg/dL 10/12/19 24 Unknown Valproic Acid LAB25 VALPROIC ACID ([place]) 23.2 ug/mL 10/12/19 24 Unknown CBC with Platelets [id number] WBC COUNT (AUTOMATED) 7.4 10e3/uL 10/11/19 24 Unknown CBC with Platelets [id number] RBC COUNT 789-8 4.07 10e6/uL 10/11/19 24 Unknown CBC with Platelets [id number] Hemoglobin 718-7 13.3 g/dL 10/11/19 24 Unknown CBC with Platelets [id number] Hematocrit 4544-3 39.2 % 10/11/19 24 Unknown CBC with Platelets [id number] MCV 787-2 96 fL 10/11/19 24 Unknown CBC with Platelets [id number] MCH 32.7 pg 10/11/19 24 Unknown CBC with Platelets [id number] MCHC 33.9 g/dL 10/11/19 24 Unknown CBC with Platelets [id number] RDW 13.2 % 10/11/19 24 Unknown CBC with Platelets [id number] Platelet Count 777-3 243 10e3/uL 10/11/19 24 Unknown Reason For Visit No Reason For Visit data Plan of Care Planned Activity Notes Codes Status Date Appointment: Aida Sr WPtel: [address] [place], [place] [phone] [place] F/U 09/17/2023 Appointment: Aida Sr WPtel: [address] [place], [place] [phone] [place] F/U 07/23/2023 Appointment: Aida Sr WPtel: [address] [place], [place] [phone] [place] F/U 06/25/2023 Appointment: Bam Frey: [address] [place], [place] [phone] [place] SDV 01/22/2023 Appointment: Aida Sr WPtel: [address] [place], [place] [phone] [place] NPAWV 11/20/2022 Referral: General Psychiatrist Referral Patient/Family Scheduling Appointment Referral: VIA Orthopedics- I n Home Visits WPtel: [address], [address] [id number] [place] Referral Order Note Incomplete Instructions Comment Date Elderly female residing in [facility] assisted living at [facility]. PMHx: dementia, cluster B personality traits, depression, hypothyroidism, HTN, anxiety, suicidal ideationsPOLST: FULL CODEFred Anatoly-spouse, Iwnf: ham-therapist: weekly calls usually on :1 visits 3 times weekly 01/28/2024
--- OUTSIDE RECORDS SUMMARY | 2024-09-10 16:27 | XMS_ITS | CCD ---
Author Name Latoya Brown PA-C Address [address] [place] [address] Phone Organization [facility] Phone Care Team Providers Care Hotel Service Supervisor Name Role Phone Aida Sr CNP Primary Care Provider Unavaila ble Aida Sr CNP Chronic Care Management Unavai lable Summary Purpose DataExchange Insurance Providers Payer name Policy type / Coverage type Covered democrat ID Effective Begin Date Effective End Date [employer] Commercial Insurance [id number] Unknown Family history Runs in the family Diagnosis Age At Onset No Known Diseases N/A Social History Social History Element Codes Description Effec tive Dates Marital status Unknown 01/28/2024 Living arrangements Unknown Memory Care 01/28/[address]: 108086217 Never smoker 01/[address]: 330874037 No Alcohol Consum ption 01/28/2024 Sexually Active? [...] Start Date Stop Date Status Fill Instructions Calmoseptine 0.44 %-20.6 % topical ointment RxNorm: 0336184 Apply Topical TID as needed to Buttocks and affected areas 08/26/19 25 025 Active Calmoseptine 0.44 %-20.6 % topical ointment RxNorm: 4567104 Apply ointment Topical TID as needed to Buttocks and affected areas 08/26/19 25 025 Inactive ondansetron 4 mg disintegrating tablet RxNorm: 756974 Take 1 Tablet(s) Oral Q4H every four hours as needed 08/25/19 25 025 Inactive ondansetron 4 mg disintegrating tablet RxNorm: 329841 Take 1 Tablet(s) Oral Q4H every four hours as needed 08/25/19 25 025 Inactive sertraline 100 mg tablet RxNorm: 181095 Take 1 Tablet(s) Oral QD 08/14/19 25 025 Inactive REFILL REQUEST FOR CYCLE THAT STARTS ON 09/11/24. THANK YOU. donepezil 5 mg tablet RxNorm: 450162 TAKE ONE-HALF TABLET (2.5MG) BY MOUTH ONCE DAILY 07/20/19 25 049 Active CYCLE FILL REFILL REQUEST FOR CYCLE FILL THAT STARTS 08/14/2024 Senexon-S 8.6 mg-50 mg tablet RxNorm: 0567588 Take 1 Tablet(s) Oral BID as needed 06/30/20 24 028 Active risperidone 1 mg tablet RxNorm: 349140 Take 1 Tablet(s) Oral BID 06/26/20 24 025 Active memantine 5 mg tablet RxNorm: 557215 TAKE ONE-HALF TABLET (2.5MG) BY MOUTH TWICE DAILY 06/23/20 24 049 Active REFILL REQUEST FOR CYCLE THAT BEGINS 07/17, THANK YOU risperidone 0.5 mg tablet RxNorm: 810003 Take 1 Tablet(s) Oral QAM every morning 03/14/20 24 024 Inactive acetaminophen 500 mg tablet RxNorm: 325355 Take 2 Tablet(s) Oral TID as needed 02/22/20 24 No Stop Date Active risperidone 1 mg tablet RxNorm: 994674 Take 1 Tablet(s) Oral HS at bed time 02/22/20 24 024 Inactive acetaminophen 500 mg tablet RxNorm: 935028 Take 2 Tablet(s) Oral TID as needed 02/22/20 24 024 Inactive sertraline 100 mg tablet RxNorm: 836840 Take 1 Tablet(s) Oral QD Take w/ 50mg tablet 01/27/20 24 025 Active sertraline 50 mg tablet RxNorm: 615658 Take 1 Tablet(s) Oral QD Take w/ 100mg tablet 01/27/20 24 025 Active acetaminophen 500 mg tablet RxNorm: 429432 Take 2 Tablet(s) Oral TID as needed 01/27/20 24 024 Inactive amlodipine 5 mg tablet RxNorm: 821831 Take 1 Tablet(s) Oral QAM every morning 01/09/20 24 048 Active REFILL REQUEST FOR CYCLE THAT BEGINS 01/30, THANK YOU! levothyroxine 50 mcg tablet RxNorm: 261089 Take 1 Tablet(s) Oral QD BEFORE BREAKFAST 01/09/20 24 048 Active REFILL REQUEST FOR CYCLE THAT BEGINS 01/30, THANK YOU! cholecalciferol (vitamin D3) 50 mcg (2,000 unit) tablet RxNorm: 806840 Take 1 Tablet(s) Oral QAM every morning 01/09/20 24 048 Active REFILL REQUEST FOR CYCLE THAT BEGINS 01/30, THANK YOU! risperidone 0.5 mg tablet RxNorm: 883308 Take 1 Tablet(s) Oral BID 01/09/20 24 024 Inactive REFILL REQUEST FOR CYCLE THAT BEGINS 01/30, THANK YOU! sertraline 50 mg tablet RxNorm: 179673 TAKE 1 TABLET BY MOUTH ONCE DAILY. TAKE ALONG WITH 100 MG TABLET DAILY FOR A TOTAL DOSE OF 150 MG 01/09/20 24 024 Inactive REFILL REQUEST FOR CYCLE THAT BEGINS 01/30, THANK YOU! risperidone 0.5 mg tablet RxNorm: 474884 Take 1 Tablet(s) Oral BID 01/07/20 24 024 Inactive levofloxacin 500 mg tablet RxNorm: 548897 Take 1 Tablet(s) Oral QD 12/31/19 24 024 Inactive acetaminophen 500 mg tablet RxNorm: 530192 Take 2 Tablet(s) Oral TID 12/31/19 24 024 Inactive levofloxacin 500 mg tablet RxNorm: 950047 Take 1 Tablet(s) Oral QD 12/31/19 24 024 Inactive divalproex ER 250 mg tablet,extended release 24 hr RxNorm: 6868709 TAKE 1 TABLET BY MOUTH AT BEDTIME HAZARDOUS DRUG-DOUBLE GLOVE 10/21/19 24 048 Active CYCLE FILL REFILL REQUEST FOR CYCLE FILL THAT STARTS 11/08/2023. risperidone 1 mg tablet RxNorm: 722402 Take 1 Tablet(s) Oral BID 10/21/19 24 024 Inactive CYCLE FILL REFILL REQUEST FOR CYCLE FILL THAT STARTS 11/08/2023. acetaminophen 500 mg tablet RxNorm: 534001 Take 2 Tablet(s) Oral BID as needed 09/13/19 24 024 Inactive Tylenol Extra Strength 500 mg tablet RxNorm: 892258 Take 2 Tablet(s) Oral BID as needed 09/13/19 24 024 Inactive trazodone 50 mg tablet RxNorm: 928324 Take 1 Tablet(s) Oral QHS every night at bedtime 09/13/19 24 024 Inactive quetiapine 100 mg tablet RxNorm: 247925 Take 1.5 Tablet(s) Oral HS at bed time 09/13/19 24 024 Inactive Senexon-S 8.6 mg-50 mg tablet RxNorm: 8075394 Take 1 Tablet(s) Oral BID as needed 09/13/19 24 025 Inactive sertraline 100 mg tablet RxNorm: 951232 Take 1.5 Tablet(s) Oral QD 09/13/19 24 024 Inactive Pain Reliever Plus 250 mg-250 mg-65 mg tablet RxNorm: 374866 Take 2 Tablet(s) Oral QD as needed 09/13/19 24 024 Inactive sertraline 100 mg tablet RxNorm: 594847 Take 1 Tablet(s) Oral QD 07/29/19 Inactive Please authorize cycle refill. Thanks. acetaminophen 500 mg tablet RxNorm: 680212 Take 2 Tablet(s) Oral BID as needed 07/20/19 24 024 Inactive acetaminophen 500 mg tablet RxNorm: 893508 Take 2 Tablet(s) Oral BID as needed 07/20/19 24 024 Inactive sertraline 100 mg tablet RxNorm: 438917 Take 1 Tablet(s) Oral QD 07/13/19 024 Inactive donepezil 5 mg tablet RxNorm: 697100 TAKE ONE-HALF TABLET (2.5MG) BY MOUTH ONCE DAILY 07/05/20 023 Inactive Cycle refill request. Cycle restarts (07/19/23). risperidone 1 mg tablet RxNorm: 980069 Take 1 Tablet(s) Oral HS at bed time 06/25/20 024 Inactive trazodone 50 mg tablet RxNorm: 387902 Take 1 Tablet(s) Oral QHS every night at bedtime as needed 06/25/20 024 Inactive quetiapine 25 mg tablet RxNorm: 206736 Take 1 Tablet(s) Oral Q4H every four hours as needed 06/25/20 23 024 Inactive Senna-S 8.6 mg-50 mg tablet RxNorm: 417284 Take 1 Tablet(s) Oral BID as needed 06/25/20 23 023 Inactive trazodone 50 mg tablet RxNorm: 777146 Take 1 Tablet(s) Oral QHS every night at bedtime as needed 06/25/20 23 023 Inactive Senna-S 8.6 mg-50 mg tablet RxNorm: 178083 Take 1 Tablet(s) Oral BID as needed 06/25/20 23 024 Inactive acetaminophen 500 mg tablet RxNorm: 925363 Take 2 Tablet(s) Oral BID as needed 06/18/20 23 024 Inactive acetaminophen 500 mg tablet RxNorm: 530697 Take 2 Tablet(s) Oral BID as needed 06/18/20 23 023 Inactive Excedrin Extra Strength 250 mg-250 mg-65 mg tablet RxNorm: 739743 Take 2 Tablet(s) Oral QD as needed 06/18/20 023 Inactive Excedrin Extra Strength 250 mg-250 mg-65 mg tablet RxNorm: 163809 Take 2 Tablet(s) Oral QD as needed 06/18/20 024 Inactive risperidone 1 mg tablet RxNorm: 674908 Take 1 Tablet(s) Oral BID 06/04/20 023 Inactive quetiapine 25 mg tablet RxNorm: 307563 Take 1 Tablet(s) Oral BID as needed 06/04/20 023 Inactive trazodone 50 mg tablet RxNorm: 277813 Take 1 Tablet(s) Oral QHS every night at bedtime 06/04/20 023 Inactive donepezil 10 mg tablet RxNorm: 983483 Take 1 Tablet(s) Oral QD 06/04/20 024 Inactive risperidone 1 mg tablet RxNorm: 608041 Take 1 Tablet(s) Oral BID as needed 06/04/20 023 Inactive Senexon-S 8.6 mg-50 mg tablet RxNorm: 6307125 Take 1 Tablet(s) Oral BID 06/03/20 023 Inactive Please authorize quantity 90 day supply with PRN refills for assisted living patient. Their cycle restarts 06/14/23. Thank you! memantine 5 mg tablet RxNorm: 386053 TAKE ONE-HALF TABLET (2.5MG) BY MOUTH TWICE DAILY 06/03/20 023 Inactive Please authorize quantity 90 day supply with PRN refills for assisted living patient. Their cycle restarts 06/14/23. Thank you! divalproex 125 mg capsule,delayed release sprinkle RxNorm: 1528034 TAKE 4 CAPSULES (500MG) BY MOUTH AT BEDTIME 06/03/20 024 Inactive Please authorize quantity 90 day supply with PRN refills for assisted living patient. Their cycle restarts 06/14/23. Thank you! sertraline 50 mg tablet RxNorm: 512487 Take 1 Tablet(s) Oral QD 06/03/20 024 Inactive Please authorize quantity 90 day supply with PRN refills for assisted living patient. Their cycle restarts 06/14/23. Thank you! naproxen 500 mg tablet RxNorm: 485861 Take 1 Tablet(s) Oral BID 01/23/20 023 Inactive naproxen 500 mg tablet RxNorm: 231300 Take 1 Tablet(s) Oral BID 01/23/20 23 023 Inactive naproxen 500 mg tablet RxNorm: 442678 Take 1 Tablet(s) Oral BID 01/23/20 023 Inactive mirtazapine 15 mg tablet RxNorm: 464129 Take 1 Tablet(s) Oral HS at bed time 01/01/20 023 Inactive CYCLE FILL REQUEST FOR CYCLE THAT STARTS 01/04/2023 escitalopram 10 mg tablet RxNorm: 072292 Take 1 Tablet(s) Oral QAM every morning 12/14/19 023 Inactive Cycle refill request. Cycle restarts (01/04/23). cholecalciferol (vitamin D3) 50 mcg (2,000 unit) tablet RxNorm: 412568 Take 1 Tablet(s) Oral QAM every morning 12/14/19 23 023 Inactive Cycle refill request. Cycle restarts (01/04/23). melatonin 10 mg sublingual tablet RxNorm: 2130985 TAKE 1 TABLET BY MOUTH AT BEDTIME NOTE DOSAGE/STRENGTH* 12/14/19 23 023 Inactive Cycle refill request. Cycle restarts (01/04/23). rivastigmine 1.5 mg capsule RxNorm: 728691 Take 1 Capsule(s) Oral BID 12/14/19 023 Inactive Cycle refill request. Cycle restarts (01/04/23). quetiapine 100 mg tablet RxNorm: 120626 Take 1 Tablet(s) Oral HS at bed time 12/14/19 23 023 Inactive Cycle refill request. Cycle restarts (01/04/23). levothyroxine 50 mcg tablet RxNorm: 303662 TAKE 1 TABLET BY MOUTH ONCE DAILY BEFORE BREAKFAST 12/14/19 23 023 Inactive Cycle refill request. Cycle restarts (01/04/23). amlodipine 5 mg tablet RxNorm: 102564 Take 1 Tablet(s) Oral QAM every morning 12/14/19 23 023 Inactive Cycle refill request. Cycle restarts (01/04/23). buspirone 15 mg tablet RxNorm: 629472 Take 1 Tablet(s) Oral BID 12/14/19 23 023 Inactive Cycle refill request. Cycle restarts (01/04/23). amitriptyline 10 mg tablet RxNorm: 706922 Take 1 Tablet(s) Oral HS at bed time 12/14/19 23 023 Inactive Cycle refill request. Cycle restarts (01/04/23). levofloxacin 500 mg tablet RxNorm: 171729 Take 1 Tablet(s) Oral QD 11/24/19 23 023 Inactive levofloxacin 500 mg tablet RxNorm: 542420 Take 1 Tablet(s) Oral QD 11/24/19 23 023 Inactive levothyroxine 50 mcg tablet RxNorm: 980828 Take 1 Tablet(s) Oral QD before Breakfast 11/18/19 23 023 Inactive amitriptyline 10 mg tablet RxNorm: 856806 Take 1 Tablet(s) Oral QHS every night at bedtime 11/18/19 23 023 Inactive acetaminophen 500 mg tablet RxNorm: 384884 2 Tablet(s) Oral TID as needed 11/18/19 23 023 Inactive amlodipine 5 mg tablet RxNorm: 277311 Take 1 Tablet(s) Oral QAM every morning 11/18/19 23 023 Inactive melatonin 5 mg tablet RxNorm: 101288 Give 1 Tablet(s) Oral QHS every night at bedtime 11/18/19 23 023 Inactive buspirone 15 mg tablet RxNorm: 434271 Take 1 Tablet(s) Oral BID 11/18/19 23 023 Inactive Seroquel 25 mg tablet RxNorm: 112951 Take 1 Tablet(s) Oral QHS every night at bedtime 11/18/19 023 Inactive cholecalciferol (vitamin D3) 50 mcg (2,000 unit) tablet RxNorm: 076395 Take 1 Tablet(s) Oral QD 11/18/19 023 Inactive rivastigmine 1.5 mg capsule RxNorm: 234228 Take 2 Capsule(s) Oral BID 11/18/19 023 Inactive mirtazapine 15 mg tablet RxNorm: 648315 Take 1 Tablet(s) Oral QHS every night at bedtime 11/18/19 023 Inactive aspirin-acetaminoph en-caffeine 250 mg-250 mg-65 mg tablet RxNorm: 232636 Take 2 Tablet(s) Oral QD as needed 11/18/19 023 Inactive escitalopram 10 mg tablet RxNorm: 648715 Take 1 Tablet(s) Oral QD 11/18/19 023 Inactive Medication Administered No Medication Administered data Immunizations Vaccine Codes Dose Date Status Influenza CVX: 205 1.0 04/06/2022 Covid-19 ([employer] mR NA, LNP-S, PF, 30 mcg/0.3 mL [...] Code Result Date Service Location Urine Culture 24365 URINE CULTURE 96426-0 SEE RESU LTS BELOW 09/03/19 Unknown UA with Microscopic 75913 COLOR Yellow 09/02/19 Unknown UA with Microscopic 62625 Appearance Cloudy 09/02/19 Unknown UA with Microscopic 66226 GLUCOSE, URINE Negative mg/dL 09/02/19 Unknown UA with Microscopic 47553 BILIRUBIN, URINE Negative 09/02/19 Unknown UA with Microscopic 42284 Ketones Urine Trace mg/dL 09/02/19 Unknown UA with Microscopic 79819 Specific Enterprise Urine 1.016 09/02/19 Unknown UA with Microscopic 40119 BLOOD, URINE Trace 09/02/19 Unknown UA with Microscopic 15437 pH Urine 6.5 09/02/19 Unknown UA with Microscopic 91605 Protein urine 20 mg/dL 09/02/19 Unknown UA with Microscopic 86863 UROBILINOGEN IRIS 3.0 mg/dL 09/02/19 Unknown UA with Microscopic 03693 Nitrites Positive 09/02/19 Unknown UA with Microscopic 77211 LEUK ESTERASE Large 09/02/19 Unknown UA with Microscopic 39024 Bacteria Few /HPF 09/02/19 Unknown UA with Microscopic 52852 Mucus Urine Present /LPF 09/02/19 Unknown UA with Microscopic 22602 CALCIUM OXALATE Few /HPF 09/02/19 Unknown UA with Microscopic 08120 Amorphous Crystals Few /HPF 09/02/19 Unknown UA with Microscopic 65401 RBC Urine <1 /HPF 09/02/19 Unknown UA with Microscopic 96848 SQUAMOUS EPITHELIAL 1 /HPF 09/02/19 Unknown UA with Microscopic 88553 WBC Urine 46584-7 40 /HPF 09/02/19 Unknown Functional Status Functional / Cognitive Codes Status [...] Codes Status Date Appointment: Aida Sr WPtel: [address] [place], [place] [phone] [place] F/U 12/31/2023 Appointment: Aida Sr WPtel: [address] [place], [place] [phone] [place] F/U 09/17/2023 Appointment: Aida Sr WPtel: [address] [place], [place] [phone] [place] F/U 07/23/2023 Appointment: Aida Sr WPtel: [address] [place], [place] [phone] [place] F/U 06/25/2023 Appointment: Bam Frey: [address] [place], [place] [phone] [place] SDV 01/22/2023 Appointment: Aida Sr WPtel: [address] [place], [place] [phone] [place] NPAWV 11/20/2022 Referral: General Psychiatrist Referral Patient/Family Scheduling Appointment Referral: [facility] WPtel: [address], [address] [id number] Referral Order Note Incomplete Instructions Comment Date Elderly female residing in [facility] assisted living at [facility]. PMHx: dementia, cluster B personality traits, depression, hypothyroidism, HTN, anxiety, suicidal ideationsPOLST: FULL CODEFred Anatoly-spouse, Ibvx: -therapist: weekly calls usually on :1 visits 3 times weekly 01/28/2024
--- OUTSIDE RECORDS SUMMARY | 2024-09-10 16:27 | XMS_ITS | CCD ---
Author Organization Unknown Care Team Providers Care Machine Inker Name Role Phone Aida Sr CNP Primary Care Provider Unavaila ble Aida Sr CNP Chronic Care Management Unavai lable Summary Purpose DataExchange Insurance Providers Payer name Policy type / Coverage type Covered green party ID Effective Begin Date Effective End Date [employer] Commercial Insurance [id number] Unknown Family history Runs in the family Diagnosis Age At Onset No Known Diseases N/A Social History Social History Element Codes Description Effec tive Dates Marital status Unknown 01/28/2024 Living arrangements Unknown Memory Care 01/28/[address]: 028091343 Never smoker 01/[address]: 285090292 No Alcohol Consum ption 01/28/2024 Sexually Active? [...] Calmoseptine 0.44 %-20.6 % topical ointment RxNorm: 9968972 Apply ointment Topical TID as needed to Buttocks and affected areas 08/26/19 025 Inactive Calmoseptine 0.44 %-20.6 % topical ointment RxNorm: 0734032 Apply Topical TID as needed to Buttocks and affected areas 08/26/19 25 025 Active ondansetron 4 mg disintegrating tablet RxNorm: 758977 Take 1 Tablet(s) Oral Q4H every four hours as needed 08/25/19 25 025 Inactive ondansetron 4 mg disintegrating tablet RxNorm: 772748 Take 1 Tablet(s) Oral Q4H every four hours as needed 08/25/19 25 025 Inactive sertraline 100 mg tablet RxNorm: 935361 Take 1 Tablet(s) Oral QD 08/14/19 025 Inactive REFILL REQUEST FOR CYCLE THAT STARTS ON 09/11/24. THANK YOU. donepezil 5 mg tablet RxNorm: 620203 TAKE ONE-HALF TABLET (2.5MG) BY MOUTH ONCE DAILY 07/20/19 25 049 Active CYCLE FILL REFILL REQUEST FOR CYCLE FILL THAT STARTS 08/14/2024 Senexon-S 8.6 mg-50 mg tablet RxNorm: 3554577 Take 1 Tablet(s) Oral BID as needed 06/30/20 24 028 Active risperidone 1 mg tablet RxNorm: 407681 Take 1 Tablet(s) Oral BID 06/26/20 24 025 Active memantine 5 mg tablet RxNorm: 934907 TAKE ONE-HALF TABLET (2.5MG) BY MOUTH TWICE DAILY 06/23/20 24 049 Active REFILL REQUEST FOR CYCLE THAT BEGINS 07/17, THANK YOU risperidone 0.5 mg tablet RxNorm: 040290 Take 1 Tablet(s) Oral QAM every morning 03/14/20 24 024 Inactive acetaminophen 500 mg tablet RxNorm: 406036 Take 2 Tablet(s) Oral TID as needed 02/22/20 24 No Stop Date Active risperidone 1 mg tablet RxNorm: 750695 Take 1 Tablet(s) Oral HS at bed time 02/22/20 24 024 Inactive acetaminophen 500 mg tablet RxNorm: 842048 Take 2 Tablet(s) Oral TID as needed 02/22/20 24 024 Inactive sertraline 100 mg tablet RxNorm: 877745 Take 1 Tablet(s) Oral QD Take w/ 50mg tablet 01/27/20 24 025 Active sertraline 50 mg tablet RxNorm: 228581 Take 1 Tablet(s) Oral QD Take w/ 100mg tablet 01/27/20 24 025 Active acetaminophen 500 mg tablet RxNorm: 357353 Take 2 Tablet(s) Oral TID as needed 01/27/20 24 024 Inactive amlodipine 5 mg tablet RxNorm: 791676 Take 1 Tablet(s) Oral QAM every morning 01/09/20 24 048 Active REFILL REQUEST FOR CYCLE THAT BEGINS 01/30, THANK YOU! levothyroxine 50 mcg tablet RxNorm: 988218 Take 1 Tablet(s) Oral QD BEFORE BREAKFAST 01/09/20 24 048 Active REFILL REQUEST FOR CYCLE THAT BEGINS 01/30, THANK YOU! cholecalciferol (vitamin D3) 50 mcg (2,000 unit) tablet RxNorm: 347169 Take 1 Tablet(s) Oral QAM every morning 01/09/20 24 048 Active REFILL REQUEST FOR CYCLE THAT BEGINS 01/30, THANK YOU! risperidone 0.5 mg tablet RxNorm: 589091 Take 1 Tablet(s) Oral BID 01/09/20 24 024 Inactive REFILL REQUEST FOR CYCLE THAT BEGINS 01/30, THANK YOU! sertraline 50 mg tablet RxNorm: 539488 TAKE 1 TABLET BY MOUTH ONCE DAILY. TAKE ALONG WITH 100 MG TABLET DAILY FOR A TOTAL DOSE OF 150 MG 01/09/20 24 024 Inactive REFILL REQUEST FOR CYCLE THAT BEGINS 01/30, THANK YOU! risperidone 0.5 mg tablet RxNorm: 308689 Take 1 Tablet(s) Oral BID 01/07/20 24 024 Inactive levofloxacin 500 mg tablet RxNorm: 925190 Take 1 Tablet(s) Oral QD 12/31/19 24 024 Inactive acetaminophen 500 mg tablet RxNorm: 043031 Take 2 Tablet(s) Oral TID 12/31/19 24 024 Inactive levofloxacin 500 mg tablet RxNorm: 885772 Take 1 Tablet(s) Oral QD 12/31/19 24 024 Inactive divalproex ER 250 mg tablet,extended release 24 hr RxNorm: 5650181 TAKE 1 TABLET BY MOUTH AT BEDTIME HAZARDOUS DRUG-DOUBLE GLOVE 10/21/19 24 048 Active CYCLE FILL REFILL REQUEST FOR CYCLE FILL THAT STARTS 11/08/2023. risperidone 1 mg tablet RxNorm: 536723 Take 1 Tablet(s) Oral BID 10/21/19 24 024 Inactive CYCLE FILL REFILL REQUEST FOR CYCLE FILL THAT STARTS 11/08/2023. acetaminophen 500 mg tablet RxNorm: 890755 Take 2 Tablet(s) Oral BID as needed 09/13/19 24 024 Inactive Tylenol Extra Strength 500 mg tablet RxNorm: 807368 Take 2 Tablet(s) Oral BID as needed 09/13/19 24 024 Inactive trazodone 50 mg tablet RxNorm: 572909 Take 1 Tablet(s) Oral QHS every night at bedtime 09/13/19 24 024 Inactive quetiapine 100 mg tablet RxNorm: 046303 Take 1.5 Tablet(s) Oral HS at bed time 09/13/19 24 024 Inactive Senexon-S 8.6 mg-50 mg tablet RxNorm: 8023340 Take 1 Tablet(s) Oral BID as needed 09/13/19 24 025 Inactive sertraline 100 mg tablet RxNorm: 061235 Take 1.5 Tablet(s) Oral QD 09/13/19 24 024 Inactive Pain Reliever Plus 250 mg-250 mg-65 mg tablet RxNorm: 304630 Take 2 Tablet(s) Oral QD as needed 09/13/19 24 024 Inactive sertraline 100 mg tablet RxNorm: 472928 Take 1 Tablet(s) Oral QD 07/29/19 24 024 Inactive Please authorize cycle refill. Thanks. acetaminophen 500 mg tablet RxNorm: 730336 Take 2 Tablet(s) Oral BID as needed 07/20/19 024 Inactive acetaminophen 500 mg tablet RxNorm: 191333 Take 2 Tablet(s) Oral BID as needed 07/20/19 024 Inactive sertraline 100 mg tablet RxNorm: 411536 Take 1 Tablet(s) Oral QD 07/13/19 024 Inactive donepezil 5 mg tablet RxNorm: 852558 TAKE ONE-HALF TABLET (2.5MG) BY MOUTH ONCE DAILY 07/05/20 023 Inactive Cycle refill request. Cycle restarts (07/19/23). risperidone 1 mg tablet RxNorm: 544351 Take 1 Tablet(s) Oral HS at bed time 06/25/20 024 Inactive trazodone 50 mg tablet RxNorm: 626836 Take 1 Tablet(s) Oral QHS every night at bedtime as needed 06/25/20 024 Inactive quetiapine 25 mg tablet RxNorm: 181894 Take 1 Tablet(s) Oral Q4H every four hours as needed 06/25/20 024 Inactive Senna-S 8.6 mg-50 mg tablet RxNorm: 870831 Take 1 Tablet(s) Oral BID as needed 06/25/20 023 Inactive trazodone 50 mg tablet RxNorm: 933277 Take 1 Tablet(s) Oral QHS every night at bedtime as needed 06/25/20 23 023 Inactive Senna-S 8.6 mg-50 mg tablet RxNorm: 006974 Take 1 Tablet(s) Oral BID as needed 06/25/20 024 Inactive acetaminophen 500 mg tablet RxNorm: 119503 Take 2 Tablet(s) Oral BID as needed 06/18/20 024 Inactive acetaminophen 500 mg tablet RxNorm: 905263 Take 2 Tablet(s) Oral BID as needed 06/18/20 23 023 Inactive Excedrin Extra Strength 250 mg-250 mg-65 mg tablet RxNorm: 958290 Take 2 Tablet(s) Oral QD as needed 06/18/20 23 023 Inactive Excedrin Extra Strength 250 mg-250 mg-65 mg tablet RxNorm: 837645 Take 2 Tablet(s) Oral QD as needed 06/18/20 024 Inactive risperidone 1 mg tablet RxNorm: 362715 Take 1 Tablet(s) Oral BID 06/04/20 023 Inactive quetiapine 25 mg tablet RxNorm: 670017 Take 1 Tablet(s) Oral BID as needed 06/04/20 023 Inactive trazodone 50 mg tablet RxNorm: 069882 Take 1 Tablet(s) Oral QHS every night at bedtime 06/04/20 023 Inactive donepezil 10 mg tablet RxNorm: 543422 Take 1 Tablet(s) Oral QD 06/04/20 024 Inactive risperidone 1 mg tablet RxNorm: 464133 Take 1 Tablet(s) Oral BID as needed 06/04/20 023 Inactive Senexon-S 8.6 mg-50 mg tablet RxNorm: 1952392 Take 1 Tablet(s) Oral BID 06/03/20 023 Inactive Please authorize quantity 90 day supply with PRN refills for assisted living patient. Their cycle restarts 06/14/23. Thank you! memantine 5 mg tablet RxNorm: 398353 TAKE ONE-HALF TABLET (2.5MG) BY MOUTH TWICE DAILY 06/03/20 023 Inactive Please authorize quantity 90 day supply with PRN refills for assisted living patient. Their cycle restarts 06/14/23. Thank you! divalproex 125 mg capsule,delayed release sprinkle RxNorm: 4113266 TAKE 4 CAPSULES (500MG) BY MOUTH AT BEDTIME 06/03/20 024 Inactive Please authorize quantity 90 day supply with PRN refills for assisted living patient. Their cycle restarts 06/14/23. Thank you! sertraline 50 mg tablet RxNorm: 361968 Take 1 Tablet(s) Oral QD 06/03/20 024 Inactive Please authorize quantity 90 day supply with PRN refills for assisted living patient. Their cycle restarts 06/14/23. Thank you! naproxen 500 mg tablet RxNorm: 066620 Take 1 Tablet(s) Oral BID 01/23/20 23 023 Inactive naproxen 500 mg tablet RxNorm: 849131 Take 1 Tablet(s) Oral BID 01/23/20 23 023 Inactive naproxen 500 mg tablet RxNorm: 121685 Take 1 Tablet(s) Oral BID 01/23/20 023 Inactive mirtazapine 15 mg tablet RxNorm: 124069 Take 1 Tablet(s) Oral HS at bed time 01/01/20 023 Inactive CYCLE FILL REQUEST FOR CYCLE THAT STARTS 01/04/2023 escitalopram 10 mg tablet RxNorm: 943011 Take 1 Tablet(s) Oral QAM every morning 12/14/19 023 Inactive Cycle refill request. Cycle restarts (01/04/23). cholecalciferol (vitamin D3) 50 mcg (2,000 unit) tablet RxNorm: 705635 Take 1 Tablet(s) Oral QAM every morning 12/14/19 23 023 Inactive Cycle refill request. Cycle restarts (01/04/23). melatonin 10 mg sublingual tablet RxNorm: 2985952 TAKE 1 TABLET BY MOUTH AT BEDTIME NOTE DOSAGE/STRENGTH* 12/14/19 023 Inactive Cycle refill request. Cycle restarts (01/04/23). rivastigmine 1.5 mg capsule RxNorm: 362408 Take 1 Capsule(s) Oral BID 12/14/19 23 023 Inactive Cycle refill request. Cycle restarts (01/04/23). quetiapine 100 mg tablet RxNorm: 000367 Take 1 Tablet(s) Oral HS at bed time 12/14/19 23 023 Inactive Cycle refill request. Cycle restarts (01/04/23). levothyroxine 50 mcg tablet RxNorm: 586251 TAKE 1 TABLET BY MOUTH ONCE DAILY BEFORE BREAKFAST 12/14/19 23 023 Inactive Cycle refill request. Cycle restarts (01/04/23). amlodipine 5 mg tablet RxNorm: 421146 Take 1 Tablet(s) Oral QAM every morning 12/14/19 23 023 Inactive Cycle refill request. Cycle restarts (01/04/23). buspirone 15 mg tablet RxNorm: 828366 Take 1 Tablet(s) Oral BID 12/14/19 23 023 Inactive Cycle refill request. Cycle restarts (01/04/23). amitriptyline 10 mg tablet RxNorm: 330160 Take 1 Tablet(s) Oral HS at bed time 12/14/19 23 023 Inactive Cycle refill request. Cycle restarts (01/04/23). levofloxacin 500 mg tablet RxNorm: 061912 Take 1 Tablet(s) Oral QD 11/24/19 23 023 Inactive levofloxacin 500 mg tablet RxNorm: 856049 Take 1 Tablet(s) Oral QD 11/24/19 23 023 Inactive levothyroxine 50 mcg tablet RxNorm: 881703 Take 1 Tablet(s) Oral QD before Breakfast 11/18/19 23 023 Inactive amitriptyline 10 mg tablet RxNorm: 134361 Take 1 Tablet(s) Oral QHS every night at bedtime 11/18/19 23 023 Inactive acetaminophen 500 mg tablet RxNorm: 461128 2 Tablet(s) Oral TID as needed 11/18/19 23 023 Inactive amlodipine 5 mg tablet RxNorm: 719646 Take 1 Tablet(s) Oral QAM every morning 11/18/19 23 023 Inactive melatonin 5 mg tablet RxNorm: 721160 Give 1 Tablet(s) Oral QHS every night at bedtime 11/18/19 23 023 Inactive buspirone 15 mg tablet RxNorm: 643991 Take 1 Tablet(s) Oral BID 11/18/19 23 023 Inactive Seroquel 25 mg tablet RxNorm: 213876 Take 1 Tablet(s) Oral QHS every night at bedtime 11/18/19 23 023 Inactive cholecalciferol (vitamin D3) 50 mcg (2,000 unit) tablet RxNorm: 091253 Take 1 Tablet(s) Oral QD 11/18/19 023 Inactive rivastigmine 1.5 mg capsule RxNorm: 302328 Take 2 Capsule(s) Oral BID 11/18/19 023 Inactive mirtazapine 15 mg tablet RxNorm: 964950 Take 1 Tablet(s) Oral QHS every night at bedtime 11/18/19 023 Inactive aspirin-acetaminoph en-caffeine 250 mg-250 mg-65 mg tablet RxNorm: 673882 Take 2 Tablet(s) Oral QD as needed 11/18/19 023 Inactive escitalopram 10 mg tablet RxNorm: 952175 Take 1 Tablet(s) Oral QD 11/18/19 023 Inactive Medication Administered No Medication Administered data Immunizations Vaccine Codes Dose Date Status Influenza CVX: 205 1.0 04/06/2022 Covid-19 (Carbonated Content mR NA, LNP-S, PF, 30 mcg/0.3 mL [...] WPtel: [address], [address] [id number] Referral Order Note Incomplete Instructions Comment Date Elderly female residing in [facility] assisted living at [facility]. PMHx: dementia, cluster B personality traits, depression, hypothyroidism, HTN, anxiety, suicidal ideationsPOLST: FULL CODEFred Anatoly-spouse, [place]: November/Scotty-therapist: weekly calls usually on 1:1 visits 3 times weekly 01/28/2024
--- OUTSIDE RECORDS SUMMARY | 2024-09-10 16:27 | XMS_ITS | CCD ---
Author Organization Unknown Care Team Providers Care Table Games Dealer Name Role Phone Aida Sr CNP Primary Care Provider Unavaila ble Aida Sr CNP Chronic Care Management Unavai lable Summary Purpose DataExchange Insurance Providers Payer name Policy type / Coverage type Covered alliance party ID Effective Begin Date Effective End Date [employer] Commercial Insurance [id number] Unknown Family history Runs in the family Diagnosis Age At Onset No Known Diseases N/A Social History Social History Element Codes Description Effec tive Dates Marital status Unknown 01/28/2024 Living arrangements Unknown Memory Care 01/28/[address]: 147395644 Never smoker 01/[address]: 445120603 No Alcohol Consum ption 01/28/2024 Sexually Active? [...] Fill Instructions sertraline 100 mg tablet RxNorm: 333353 Take 1 Tablet(s) Oral QD 02/06/20 25 025 Inactive REFILL REQUEST FOR CYCLE THAT STARTS ON 09/11/24. THANK YOU. donepezil 5 mg tablet RxNorm: 703983 TAKE ONE-HALF TABLET (2.5MG) BY MOUTH ONCE DAILY 07/20/19 25 049 Active CYCLE FILL REFILL REQUEST FOR CYCLE FILL THAT STARTS 08/14/2024 Senexon-S 8.6 mg-50 mg tablet RxNorm: 2475795 Take 1 Tablet(s) Oral BID as needed 06/30/20 24 028 Active risperidone 1 mg tablet RxNorm: 910209 Take 1 Tablet(s) Oral BID 06/26/20 24 025 Active memantine 5 mg tablet RxNorm: 292068 TAKE ONE-HALF TABLET (2.5MG) BY MOUTH TWICE DAILY 06/23/20 24 049 Active REFILL REQUEST FOR CYCLE THAT BEGINS 07/17, THANK YOU risperidone 0.5 mg tablet RxNorm: 252108 Take 1 Tablet(s) Oral QAM every morning 03/14/20 24 024 Inactive acetaminophen 500 mg tablet RxNorm: 066984 Take 2 Tablet(s) Oral TID as needed 02/22/20 24 No Stop Date Active risperidone 1 mg tablet RxNorm: 992127 Take 1 Tablet(s) Oral HS at bed time 02/22/20 24 024 Inactive acetaminophen 500 mg tablet RxNorm: 490839 Take 2 Tablet(s) Oral TID as needed 02/22/20 24 024 Inactive sertraline 100 mg tablet RxNorm: 588212 Take 1 Tablet(s) Oral QD Take w/ 50mg tablet 01/27/20 24 025 Active sertraline 50 mg tablet RxNorm: 233651 Take 1 Tablet(s) Oral QD Take w/ 100mg tablet 01/27/20 24 025 Active acetaminophen 500 mg tablet RxNorm: 898085 Take 2 Tablet(s) Oral TID as needed 01/27/20 24 024 Inactive amlodipine 5 mg tablet RxNorm: 854409 Take 1 Tablet(s) Oral QAM every morning 01/09/20 24 048 Active REFILL REQUEST FOR CYCLE THAT BEGINS 01/30, THANK YOU! levothyroxine 50 mcg tablet RxNorm: 173878 Take 1 Tablet(s) Oral QD BEFORE BREAKFAST 01/09/20 24 048 Active REFILL REQUEST FOR CYCLE THAT BEGINS 01/30, THANK YOU! cholecalciferol (vitamin D3) 50 mcg (2,000 unit) tablet RxNorm: 485575 Take 1 Tablet(s) Oral QAM every morning 01/09/20 24 048 Active REFILL REQUEST FOR CYCLE THAT BEGINS 01/30, THANK YOU! risperidone 0.5 mg tablet RxNorm: 806260 Take 1 Tablet(s) Oral BID 01/09/20 24 024 Inactive REFILL REQUEST FOR CYCLE THAT BEGINS 01/30, THANK YOU! sertraline 50 mg tablet RxNorm: 126771 TAKE 1 TABLET BY MOUTH ONCE DAILY. TAKE ALONG WITH 100 MG TABLET DAILY FOR A TOTAL DOSE OF 150 MG 01/09/20 24 024 Inactive REFILL REQUEST FOR CYCLE THAT BEGINS 01/30, THANK YOU! risperidone 0.5 mg tablet RxNorm: 072255 Take 1 Tablet(s) Oral BID 01/07/20 24 024 Inactive levofloxacin 500 mg tablet RxNorm: 808502 Take 1 Tablet(s) Oral QD 12/31/19 24 024 Inactive acetaminophen 500 mg tablet RxNorm: 492955 Take 2 Tablet(s) Oral TID 12/31/19 24 024 Inactive levofloxacin 500 mg tablet RxNorm: 936857 Take 1 Tablet(s) Oral QD 12/31/19 24 024 Inactive divalproex ER 250 mg tablet,extended release 24 hr RxNorm: 6435813 TAKE 1 TABLET BY MOUTH AT BEDTIME HAZARDOUS DRUG-DOUBLE GLOVE 10/21/19 24 048 Active CYCLE FILL REFILL REQUEST FOR CYCLE FILL THAT STARTS 11/08/2023. risperidone 1 mg tablet RxNorm: 876261 Take 1 Tablet(s) Oral BID 10/21/19 24 024 Inactive CYCLE FILL REFILL REQUEST FOR CYCLE FILL THAT STARTS 11/08/2023. acetaminophen 500 mg tablet RxNorm: 459718 Take 2 Tablet(s) Oral BID as needed 09/13/19 24 Inactive Tylenol Extra Strength 500 mg tablet RxNorm: 764434 Take 2 Tablet(s) Oral BID as needed 09/13/19 24 Inactive trazodone 50 mg tablet RxNorm: 371386 Take 1 Tablet(s) Oral QHS every night at bedtime 09/13/19 24 024 Inactive quetiapine 100 mg tablet RxNorm: 170427 Take 1.5 Tablet(s) Oral HS at bed time 09/13/19 24 024 Inactive Senexon-S 8.6 mg-50 mg tablet RxNorm: 9019361 Take 1 Tablet(s) Oral BID as needed 09/13/19 24 025 Inactive sertraline 100 mg tablet RxNorm: 537613 Take 1.5 Tablet(s) Oral QD 09/13/19 24 024 Inactive Pain Reliever Plus 250 mg-250 mg-65 mg tablet RxNorm: 804161 Take 2 Tablet(s) Oral QD as needed 09/13/19 24 024 Inactive sertraline 100 mg tablet RxNorm: 958491 Take 1 Tablet(s) Oral QD 07/29/19 24 Inactive Please authorize cycle refill. Thanks. acetaminophen 500 mg tablet RxNorm: 204238 Take 2 Tablet(s) Oral BID as needed 07/20/19 24 024 Inactive acetaminophen 500 mg tablet RxNorm: 284354 Take 2 Tablet(s) Oral BID as needed 07/20/19 24 024 Inactive sertraline 100 mg tablet RxNorm: 895533 Take 1 Tablet(s) Oral QD 07/13/19 24 024 Inactive donepezil 5 mg tablet RxNorm: 626916 TAKE ONE-HALF TABLET (2.5MG) BY MOUTH ONCE DAILY 07/05/20 23 023 Inactive Cycle refill request. Cycle restarts (07/19/23). risperidone 1 mg tablet RxNorm: 298905 Take 1 Tablet(s) Oral HS at bed time 06/25/20 23 024 Inactive trazodone 50 mg tablet RxNorm: 597589 Take 1 Tablet(s) Oral QHS every night at bedtime as needed 06/25/20 024 Inactive quetiapine 25 mg tablet RxNorm: 142531 Take 1 Tablet(s) Oral Q4H every four hours as needed 06/25/20 024 Inactive Senna-S 8.6 mg-50 mg tablet RxNorm: 341578 Take 1 Tablet(s) Oral BID as needed 06/25/20 023 Inactive trazodone 50 mg tablet RxNorm: 377431 Take 1 Tablet(s) Oral QHS every night at bedtime as needed 06/25/20 023 Inactive Senna-S 8.6 mg-50 mg tablet RxNorm: 655253 Take 1 Tablet(s) Oral BID as needed 06/25/20 024 Inactive acetaminophen 500 mg tablet RxNorm: 789373 Take 2 Tablet(s) Oral BID as needed 06/18/20 024 Inactive acetaminophen 500 mg tablet RxNorm: 914378 Take 2 Tablet(s) Oral BID as needed 06/18/20 23 023 Inactive Excedrin Extra Strength 250 mg-250 mg-65 mg tablet RxNorm: 847945 Take 2 Tablet(s) Oral QD as needed 06/18/20 23 023 Inactive Excedrin Extra Strength 250 mg-250 mg-65 mg tablet RxNorm: 893931 Take 2 Tablet(s) Oral QD as needed 06/18/20 024 Inactive risperidone 1 mg tablet RxNorm: 835805 Take 1 Tablet(s) Oral BID 06/04/20 023 Inactive quetiapine 25 mg tablet RxNorm: 647882 Take 1 Tablet(s) Oral BID as needed 06/04/20 023 Inactive trazodone 50 mg tablet RxNorm: 518569 Take 1 Tablet(s) Oral QHS every night at bedtime 06/04/20 23 023 Inactive donepezil 10 mg tablet RxNorm: 266505 Take 1 Tablet(s) Oral QD 06/04/20 024 Inactive risperidone 1 mg tablet RxNorm: 803784 Take 1 Tablet(s) Oral BID as needed 06/04/20 023 Inactive Senexon-S 8.6 mg-50 mg tablet RxNorm: 0059766 Take 1 Tablet(s) Oral BID 06/03/20 023 Inactive Please authorize quantity 90 day supply with PRN refills for assisted living patient. Their cycle restarts 06/14/23. Thank you! memantine 5 mg tablet RxNorm: 146692 TAKE ONE-HALF TABLET (2.5MG) BY MOUTH TWICE DAILY 06/03/20 023 Inactive Please authorize quantity 90 day supply with PRN refills for assisted living patient. Their cycle restarts 06/14/23. Thank you! divalproex 125 mg capsule,delayed release sprinkle RxNorm: 8563904 TAKE 4 CAPSULES (500MG) BY MOUTH AT BEDTIME 06/03/20 024 Inactive Please authorize quantity 90 day supply with PRN refills for assisted living patient. Their cycle restarts 06/14/23. Thank you! sertraline 50 mg tablet RxNorm: 080481 Take 1 Tablet(s) Oral QD 06/03/20 024 Inactive Please authorize quantity 90 day supply with PRN refills for assisted living patient. Their cycle restarts 06/14/23. Thank you! naproxen 500 mg tablet RxNorm: 348736 Take 1 Tablet(s) Oral BID 01/23/20 023 Inactive naproxen 500 mg tablet RxNorm: 064733 Take 1 Tablet(s) Oral BID 01/23/20 023 Inactive naproxen 500 mg tablet RxNorm: 665221 Take 1 Tablet(s) Oral BID 01/23/20 023 Inactive mirtazapine 15 mg tablet RxNorm: 509701 Take 1 Tablet(s) Oral HS at bed time 01/01/20 023 Inactive CYCLE FILL REQUEST FOR CYCLE THAT STARTS 01/04/2023 escitalopram 10 mg tablet RxNorm: 100203 Take 1 Tablet(s) Oral QAM every morning 12/14/19 023 Inactive Cycle refill request. Cycle restarts (01/04/23). cholecalciferol (vitamin D3) 50 mcg (2,000 unit) tablet RxNorm: 963121 Take 1 Tablet(s) Oral QAM every morning 12/14/19 23 023 Inactive Cycle refill request. Cycle restarts (01/04/23). melatonin 10 mg sublingual tablet RxNorm: 1020811 TAKE 1 TABLET BY MOUTH AT BEDTIME NOTE DOSAGE/STRENGTH* 12/14/19 23 023 Inactive Cycle refill request. Cycle restarts (01/04/23). rivastigmine 1.5 mg capsule RxNorm: 441545 Take 1 Capsule(s) Oral BID 12/14/19 23 023 Inactive Cycle refill request. Cycle restarts (01/04/23). quetiapine 100 mg tablet RxNorm: 121951 Take 1 Tablet(s) Oral HS at bed time 12/14/19 23 023 Inactive Cycle refill request. Cycle restarts (01/04/23). levothyroxine 50 mcg tablet RxNorm: 904779 TAKE 1 TABLET BY MOUTH ONCE DAILY BEFORE BREAKFAST 12/14/19 23 023 Inactive Cycle refill request. Cycle restarts (01/04/23). amlodipine 5 mg tablet RxNorm: 451049 Take 1 Tablet(s) Oral QAM every morning 12/14/19 23 023 Inactive Cycle refill request. Cycle restarts (01/04/23). buspirone 15 mg tablet RxNorm: 762718 Take 1 Tablet(s) Oral BID 12/14/19 23 023 Inactive Cycle refill request. Cycle restarts (01/04/23). amitriptyline 10 mg tablet RxNorm: 989657 Take 1 Tablet(s) Oral HS at bed time 12/14/19 23 023 Inactive Cycle refill request. Cycle restarts (01/04/23). levofloxacin 500 mg tablet RxNorm: 871610 Take 1 Tablet(s) Oral QD 05 023 Inactive levofloxacin 500 mg tablet RxNorm: 129398 Take 1 Tablet(s) Oral QD 11/24/19 023 Inactive levothyroxine 50 mcg tablet RxNorm: 804610 Take 1 Tablet(s) Oral QD before Breakfast 11/18/19 023 Inactive amitriptyline 10 mg tablet RxNorm: 680422 Take 1 Tablet(s) Oral QHS every night at bedtime 11/18/19 023 Inactive acetaminophen 500 mg tablet RxNorm: 805738 2 Tablet(s) Oral TID as needed 11/18/19 023 Inactive amlodipine 5 mg tablet RxNorm: 247797 Take 1 Tablet(s) Oral QAM every morning 11/18/19 023 Inactive melatonin 5 mg tablet RxNorm: 864230 Give 1 Tablet(s) Oral QHS every night at bedtime 11/18/19 023 Inactive buspirone 15 mg tablet RxNorm: 870821 Take 1 Tablet(s) Oral BID 11/18/19 023 Inactive Seroquel 25 mg tablet RxNorm: 815026 Take 1 Tablet(s) Oral QHS every night at bedtime 11/18/19 023 Inactive cholecalciferol (vitamin D3) 50 mcg (2,000 unit) tablet RxNorm: 993865 Take 1 Tablet(s) Oral QD 11/18/19 023 Inactive rivastigmine 1.5 mg capsule RxNorm: 752633 Take 2 Capsule(s) Oral BID 11/18/19 023 Inactive mirtazapine 15 mg tablet RxNorm: 348509 Take 1 Tablet(s) Oral QHS every night at bedtime 11/18/19 023 Inactive aspirin-acetaminoph en-caffeine 250 mg-250 mg-65 mg tablet RxNorm: 305726 Take 2 Tablet(s) Oral QD as needed 11/18/19 023 Inactive escitalopram 10 mg tablet RxNorm: 953063 Take 1 Tablet(s) Oral QD 11/18/19 023 Inactive Medication Administered No Medication Administered data Immunizations Vaccine Codes Dose Date Status Influenza CVX: 205 1.0 04/06/2022 Covid-19 (pinion-pins-[place] mR NA, LNP-S, PF, 30 mcg/0.3 mL [...] WPtel: [address], [address] [id number] Referral Order Note Incomplete Instructions Comment Date Elderly female residing in [facility] assisted living at [facility]. PMHx: dementia, cluster B personality traits, depression, hypothyroidism, HTN, anxiety, suicidal ideationsPOLST: FULL CODEFred Anatoly-spouse, Qbsq: November/ham-therapist: weekly calls usually on :1 visits 3 times weekly 01/28/2024
--- OUTSIDE RECORDS SUMMARY | 2024-09-10 16:27 | XMS_ITS | CCD ---
Author Organization Unknown Care Team Providers Care Beverage Manager Name Role Phone Orin GARCIA, Aida Primary Care Provider Unavaila ble Aida Sr CNP Chronic Care Management Unavai lable Summary Purpose DataExchange Insurance Providers Payer name Policy type / Coverage type Covered constitution party ID Effective Begin Date Effective End Date [place] [employer] Commercial Insurance [id number] Unknown [id number] Family History Family History data not found [...] Start Date Stop Date Status Fill Instructions mirtazapine 15 mg tablet RxNorm: 202349 Take 1 Tablet(s) Oral HS at bed time 01/01/20 23 023 Inactive CYCLE FILL REQUEST FOR CYCLE THAT STARTS 01/04/2023 escitalopram 10 mg tablet RxNorm: 647435 Take 1 Tablet(s) Oral QAM every morning 12/14/19 23 023 Inactive Cycle refill request. Cycle restarts (01/04/23). melatonin 10 mg sublingual tablet RxNorm: 9965566 TAKE 1 TABLET BY MOUTH AT BEDTIME NOTE DOSAGE/STRENGTH* 12/14/19 023 Inactive Cycle refill request. Cycle restarts (01/04/23). rivastigmine 1.5 mg capsule RxNorm: 256488 Take 1 Capsule(s) Oral BID 12/14/19 023 Inactive Cycle refill request. Cycle restarts (01/04/23). quetiapine 100 mg tablet RxNorm: 821440 Take 1 Tablet(s) Oral HS at bed time 12/14/19 23 023 Inactive Cycle refill request. Cycle restarts (01/04/23). buspirone 15 mg tablet RxNorm: 511219 Take 1 Tablet(s) Oral BID 12/14/19 023 Inactive Cycle refill request. Cycle restarts (01/04/23). amitriptyline 10 mg tablet RxNorm: 954693 Take 1 Tablet(s) Oral HS at bed time 12/14/19 023 Inactive Cycle refill request. Cycle restarts (01/04/23). cholecalciferol (vitamin D3) 50 mcg (2,000 unit) tablet RxNorm: 150417 Take 1 Tablet(s) Oral QAM every morning 12/14/19 23 023 Inactive Cycle refill request. Cycle restarts (01/04/23). levothyroxine 50 mcg tablet RxNorm: 170541 TAKE 1 TABLET BY MOUTH ONCE DAILY BEFORE BREAKFAST 12/14/19 23 023 Inactive Cycle refill request. Cycle restarts (01/04/23). amlodipine 5 mg tablet RxNorm: 677459 Take 1 Tablet(s) Oral QAM every morning 12/14/19 23 023 Inactive Cycle refill request. Cycle restarts (01/04/23). levofloxacin 500 mg tablet RxNorm: 316307 Take 1 Tablet(s) Oral QD 11/24/19 23 023 Inactive levofloxacin 500 mg tablet RxNorm: 928787 Take 1 Tablet(s) Oral QD 11/24/19 023 Inactive acetaminophen 500 mg tablet RxNorm: 539935 2 Tablet(s) Oral TID as needed 11/18/19 023 Inactive melatonin 5 mg tablet RxNorm: 429505 Give 1 Tablet(s) Oral QHS every night at bedtime 11/18/19 023 Inactive Seroquel 25 mg tablet RxNorm: 607117 Take 1 Tablet(s) Oral QHS every night at bedtime 11/18/19 023 Inactive mirtazapine 15 mg tablet RxNorm: 978781 Take 1 Tablet(s) Oral QHS every night at bedtime 11/18/19 023 Inactive aspirin-acetaminoph en-caffeine 250 mg-250 mg-65 mg tablet RxNorm: 777908 Take 2 Tablet(s) Oral QD as needed 11/18/19 023 Inactive levothyroxine 50 mcg tablet RxNorm: 519323 Take 1 Tablet(s) Oral QD before Breakfast 11/18/19 023 Inactive amitriptyline 10 mg tablet RxNorm: 309911 Take 1 Tablet(s) Oral QHS every night at bedtime 11/18/19 023 Inactive amlodipine 5 mg tablet RxNorm: 775800 Take 1 Tablet(s) Oral QAM every morning 11/18/19 023 Inactive buspirone 15 mg tablet RxNorm: 485093 Take 1 Tablet(s) Oral BID 11/18/19 023 Inactive cholecalciferol (vitamin D3) 50 mcg (2,000 unit) tablet RxNorm: 960817 Take 1 Tablet(s) Oral QD 11/18/19 23 023 Inactive rivastigmine 1.5 mg capsule RxNorm: 672273 Take 2 Capsule(s) Oral BID 11/18/19 023 Inactive escitalopram 10 mg tablet RxNorm: 392777 Take 1 Tablet(s) Oral QD 11/18/19 023 Inactive Medication Administered No Medication Administered data Immunizations Vaccine Codes Dose Date Status Influenza CVX: 205 1.0 04/06/2022 Covid-19 ([employer] mR NA, LNP-S, PF, 30 mcg/0.3 mL [...] Visits WPtel: [address], [address] [id number] Referral Order Note Incomplete Instructions Comment Date Elderly female residing in [facility] assisted living at [facility]. PMHx: dementia, cluster B personality traits, depression, hypothyroidism, HTN, anxiety, suicidal ideationsPOLST: FULL CODEFred Anatoly-spouse, Cjjf: -therapist: weekly calls usually on :1 visits 3 times weekly 01/28/2024
--- OUTSIDE RECORDS SUMMARY | 2024-09-10 16:28 | XMS_ITS | CCD ---
Author Organization Unknown Care Team Providers Care Sas Analyst Name Role Phone Orincomfort GARCIA, Aida Primary Care Provider Unavaila ble OrinAida moyer CNP Chronic Care Management Unavai lable Summary Purpose DataExchange Insurance Providers Payer name Policy type / Coverage type Covered constitution party ID Effective Begin Date Effective End Date [employer] Commercial Insurance [id number] Unknown Family History Family History data not [...] Fill Instructions acetaminophen 500 mg tablet RxNorm: 374150 Take 2 Tablet(s) Oral BID as needed 06/18/20 024 Inactive acetaminophen 500 mg tablet RxNorm: 873035 Take 2 Tablet(s) Oral BID as needed 06/18/20 023 Inactive Excedrin Extra Strength 250 mg-250 mg-65 mg tablet RxNorm: 902409 Take 2 Tablet(s) Oral QD as needed 06/18/20 023 Inactive Excedrin Extra Strength 250 mg-250 mg-65 mg tablet RxNorm: 122110 Take 2 Tablet(s) Oral QD as needed 06/18/20 024 Inactive risperidone 1 mg tablet RxNorm: 958005 Take 1 Tablet(s) Oral BID 06/04/20 023 Inactive quetiapine 25 mg tablet RxNorm: 810346 Take 1 Tablet(s) Oral BID as needed 06/04/20 023 Inactive trazodone 50 mg tablet RxNorm: 219498 Take 1 Tablet(s) Oral QHS every night at bedtime 06/04/20 023 Inactive donepezil 10 mg tablet RxNorm: 501375 Take 1 Tablet(s) Oral QD 06/04/20 024 Inactive risperidone 1 mg tablet RxNorm: 295811 Take 1 Tablet(s) Oral BID as needed 06/04/20 023 Inactive Senexon-S 8.6 mg-50 mg tablet RxNorm: 2590668 Take 1 Tablet(s) Oral BID 06/03/20 023 Inactive Please authorize quantity 90 day supply with PRN refills for assisted living patient. Their cycle restarts 06/14/23. Thank you! divalproex 125 mg capsule,delayed release sprinkle RxNorm: 2295122 TAKE 4 CAPSULES (500MG) BY MOUTH AT BEDTIME 06/03/20 024 Inactive Please authorize quantity 90 day supply with PRN refills for assisted living patient. Their cycle restarts 06/14/23. Thank you! sertraline 50 mg tablet RxNorm: 642467 Take 1 Tablet(s) Oral QD 06/03/20 024 Inactive Please authorize quantity 90 day supply with PRN refills for assisted living patient. Their cycle restarts 06/14/23. Thank you! memantine 5 mg tablet RxNorm: 578846 TAKE ONE-HALF TABLET (2.5MG) BY MOUTH TWICE DAILY 06/03/20 023 Inactive Please authorize quantity 90 day supply with PRN refills for assisted living patient. Their cycle restarts 06/14/23. Thank you! naproxen 500 mg tablet RxNorm: 949926 Take 1 Tablet(s) Oral BID 01/23/20 023 Inactive naproxen 500 mg tablet RxNorm: 668679 Take 1 Tablet(s) Oral BID 01/23/20 23 023 Inactive naproxen 500 mg tablet RxNorm: 838819 Take 1 Tablet(s) Oral BID 01/23/20 23 023 Inactive mirtazapine 15 mg tablet RxNorm: 566620 Take 1 Tablet(s) Oral HS at bed time 01/01/20 023 Inactive CYCLE FILL REQUEST FOR CYCLE THAT STARTS 01/04/2023 escitalopram 10 mg tablet RxNorm: 554906 Take 1 Tablet(s) Oral QAM every morning 12/14/19 23 023 Inactive Cycle refill request. Cycle restarts (01/04/23). cholecalciferol (vitamin D3) 50 mcg (2,000 unit) tablet RxNorm: 086531 Take 1 Tablet(s) Oral QAM every morning 12/14/19 23 023 Inactive Cycle refill request. Cycle restarts (01/04/23). melatonin 10 mg sublingual tablet RxNorm: 4119712 TAKE 1 TABLET BY MOUTH AT BEDTIME NOTE DOSAGE/STRENGTH* 12/14/19 23 023 Inactive Cycle refill request. Cycle restarts (01/04/23). rivastigmine 1.5 mg capsule RxNorm: 957014 Take 1 Capsule(s) Oral BID 12/14/19 23 023 Inactive Cycle refill request. Cycle restarts (01/04/23). quetiapine 100 mg tablet RxNorm: 447803 Take 1 Tablet(s) Oral HS at bed time 12/14/19 23 023 Inactive Cycle refill request. Cycle restarts (01/04/23). levothyroxine 50 mcg tablet RxNorm: 450358 TAKE 1 TABLET BY MOUTH ONCE DAILY BEFORE BREAKFAST 12/14/19 23 023 Inactive Cycle refill request. Cycle restarts (01/04/23). amlodipine 5 mg tablet RxNorm: 822066 Take 1 Tablet(s) Oral QAM every morning 12/14/19 23 023 Inactive Cycle refill request. Cycle restarts (01/04/23). buspirone 15 mg tablet RxNorm: 638559 Take 1 Tablet(s) Oral BID 12/14/19 23 023 Inactive Cycle refill request. Cycle restarts (01/04/23). amitriptyline 10 mg tablet RxNorm: 598566 Take 1 Tablet(s) Oral HS at bed time 12/14/19 23 023 Inactive Cycle refill request. Cycle restarts (01/04/23). levofloxacin 500 mg tablet RxNorm: 844409 Take 1 Tablet(s) Oral QD 11/24/19 23 023 Inactive levofloxacin 500 mg tablet RxNorm: 825411 Take 1 Tablet(s) Oral QD 11/24/19 23 023 Inactive levothyroxine 50 mcg tablet RxNorm: 401863 Take 1 Tablet(s) Oral QD before Breakfast 11/18/19 23 023 Inactive amitriptyline 10 mg tablet RxNorm: 185710 Take 1 Tablet(s) Oral QHS every night at bedtime 05/12/ 023 Inactive acetaminophen 500 mg tablet RxNorm: 450619 2 Tablet(s) Oral TID as needed 11/18/19 023 Inactive amlodipine 5 mg tablet RxNorm: 698120 Take 1 Tablet(s) Oral QAM every morning 11/18/19 023 Inactive melatonin 5 mg tablet RxNorm: 109221 Give 1 Tablet(s) Oral QHS every night at bedtime 11/18/19 023 Inactive buspirone 15 mg tablet RxNorm: 297211 Take 1 Tablet(s) Oral BID 11/18/19 023 Inactive Seroquel 25 mg tablet RxNorm: 020448 Take 1 Tablet(s) Oral QHS every night at bedtime 11/18/19 023 Inactive cholecalciferol (vitamin D3) 50 mcg (2,000 unit) tablet RxNorm: 391211 Take 1 Tablet(s) Oral QD 11/18/19 023 Inactive rivastigmine 1.5 mg capsule RxNorm: 453959 Take 2 Capsule(s) Oral BID 11/18/19 023 Inactive mirtazapine 15 mg tablet RxNorm: 146505 Take 1 Tablet(s) Oral QHS every night at bedtime 11/18/19 023 Inactive aspirin-acetaminoph en-caffeine 250 mg-250 mg-65 mg tablet RxNorm: 450361 Take 2 Tablet(s) Oral QD as needed 11/18/19 023 Inactive escitalopram 10 mg tablet RxNorm: 146670 Take 1 Tablet(s) Oral QD 11/18/19 023 Inactive Medication Administered No Medication Administered data Immunizations Vaccine Codes Dose Date Status Influenza CVX: 205 1.0 04/06/2022 Covid-19 ([employer] mR NA, LNP-S, PF, 30 mcg/0.3 mL [...] WPtel: [address], [address] [id number] Referral Order Note Incomplete Instructions Comment Date Elderly female residing in [facility] assisted living at [facility]. PMHx: dementia, cluster B personality traits, depression, hypothyroidism, HTN, anxiety, suicidal ideationsPOLST: FULL CODEFred Anatoly-spouse, Ehim: November/Scotty-therapist: weekly calls usually on :1 visits 3 times weekly 01/28/2024
--- OUTSIDE RECORDS SUMMARY | 2024-09-10 16:29 | XMS_ITS | CCD ---
Author Name Aida Sr CNP Address [address] [place] [address] Phone Organization [facility] Phone Care Team Providers Care Injection Maintenance Technician Name Role Phone Orin BASE ENGINEERAida Primary Care Provider Unavaila ble Orin BASE ENGINEERAida Chronic Care Management Unavai lable Summary Purpose DataExchange Insurance Providers Payer name Policy type / Coverage type Covered democrat ID Effective Begin Date Effective End Date [employer] Commercial Insurance [id number] Unknown Family History Family History data not found Allergies, Adverse Reactions, Alerts Substance Reaction Codes Entered Date Inactivated Date Status Sulfa Unknown 11/14/2022 No Inactive Date Ac tive Problems Condition Codes Effective Dates Condition St atus Anxiety ICD-10: F41.9 ICD-9: 300.00 05/04/2023 Active Depression, major, recurrent, 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 ICD-9: 296.31 05/04/2023 Active Suicidal ideation ICD-10: R45.851 ICD-9: V62.84 05/04/2023 Active Dementia ICD-10: F03.90 ICD-9: 294.20 04/17/2023 Active Major depression, 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 9 ICD-9: 296.30 04/17/2023 Active HTN (hypertension) ICD-10: I10 ICD-9: [...] Fill Instructions naproxen 500 mg tablet RxNorm: 787380 Take 1 Tablet(s) Oral BID 01/23/20 023 Inactive naproxen 500 mg tablet RxNorm: 041680 Take 1 Tablet(s) Oral BID 01/23/20 023 Inactive naproxen 500 mg tablet RxNorm: 638781 Take 1 Tablet(s) Oral BID 01/23/20 023 Inactive mirtazapine 15 mg tablet RxNorm: 501279 Take 1 Tablet(s) Oral HS at bed time 01/01/20 023 Inactive CYCLE FILL REQUEST FOR CYCLE THAT STARTS 01/04/2023 escitalopram 10 mg tablet RxNorm: 734553 Take 1 Tablet(s) Oral QAM every morning 12/14/19 023 Inactive Cycle refill request. Cycle restarts (01/04/23). melatonin 10 mg sublingual tablet RxNorm: 9785582 TAKE 1 TABLET BY MOUTH AT BEDTIME NOTE DOSAGE/STRENGTH* 12/14/19 023 Inactive Cycle refill request. Cycle restarts (01/04/23). rivastigmine 1.5 mg capsule RxNorm: 746193 Take 1 Capsule(s) Oral BID 12/14/19 023 Inactive Cycle refill request. Cycle restarts (01/04/23). buspirone 15 mg tablet RxNorm: 778647 Take 1 Tablet(s) Oral BID 12/14/19 023 Inactive Cycle refill request. Cycle restarts (01/04/23). cholecalciferol (vitamin D3) 50 mcg (2,000 unit) tablet RxNorm: 100698 Take 1 Tablet(s) Oral QAM every morning 12/14/19 23 023 Inactive Cycle refill request. Cycle restarts (01/04/23). quetiapine 100 mg tablet RxNorm: 744639 Take 1 Tablet(s) Oral HS at bed time 12/14/19 23 023 Inactive Cycle refill request. Cycle restarts (01/04/23). levothyroxine 50 mcg tablet RxNorm: 995950 TAKE 1 TABLET BY MOUTH ONCE DAILY BEFORE BREAKFAST 12/14/19 23 023 Inactive Cycle refill request. Cycle restarts (01/04/23). amlodipine 5 mg tablet RxNorm: 002077 Take 1 Tablet(s) Oral QAM every morning 12/14/19 23 023 Inactive Cycle refill request. Cycle restarts (01/04/23). amitriptyline 10 mg tablet RxNorm: 060025 Take 1 Tablet(s) Oral HS at bed time 12/14/19 23 023 Inactive Cycle refill request. Cycle restarts (01/04/23). levofloxacin 500 mg tablet RxNorm: 268825 Take 1 Tablet(s) Oral QD 11/24/19 23 023 Inactive levofloxacin 500 mg tablet RxNorm: 124800 Take 1 Tablet(s) Oral QD 11/24/19 23 023 Inactive acetaminophen 500 mg tablet RxNorm: 884853 2 Tablet(s) Oral TID as needed 11/18/19 23 023 Inactive levothyroxine 50 mcg tablet RxNorm: 058964 Take 1 Tablet(s) Oral QD before Breakfast 11/18/19 23 023 Inactive amitriptyline 10 mg tablet RxNorm: 315949 Take 1 Tablet(s) Oral QHS every night at bedtime 11/18/19 23 023 Inactive amlodipine 5 mg tablet RxNorm: 417818 Take 1 Tablet(s) Oral QAM every morning 11/18/19 23 023 Inactive melatonin 5 mg tablet RxNorm: 836339 Give 1 Tablet(s) Oral QHS every night at bedtime 11/18/19 23 023 Inactive buspirone 15 mg tablet RxNorm: 885468 Take 1 Tablet(s) Oral BID 11/18/19 023 Inactive Seroquel 25 mg tablet RxNorm: 996116 Take 1 Tablet(s) Oral QHS every night at bedtime 11/18/19 023 Inactive cholecalciferol (vitamin D3) 50 mcg (2,000 unit) tablet RxNorm: 027687 Take 1 Tablet(s) Oral QD 11/18/19 023 Inactive rivastigmine 1.5 mg capsule RxNorm: 176852 Take 2 Capsule(s) Oral BID 11/18/19 023 Inactive mirtazapine 15 mg tablet RxNorm: 255280 Take 1 Tablet(s) Oral QHS every night at bedtime 11/18/19 023 Inactive aspirin-acetaminoph en-caffeine 250 mg-250 mg-65 mg tablet RxNorm: 427810 Take 2 Tablet(s) Oral QD as needed 11/18/19 023 Inactive escitalopram 10 mg tablet RxNorm: 753409 Take 1 Tablet(s) Oral QD 11/18/19 023 Inactive Medication Administered No Medication Administered data Immunizations Vaccine Codes Dose Date Status Influenza CVX: 205 1.0 04/06/2022 Covid-19 ([employer] mR NA, LNP-S, PF, 30 mcg/0.3 mL [...] Date Patient Education: Patient Medication Summary Completed 05/04/2023 Appointment: Bam Frey: [address] [place], [place] [id number] SDV 01/22/2023 Appointment: Aida Sr WPtel: [address] [place], [place] [id number] NPAWV 11/20/2022 Referral: General Psychiatrist Referral Patient/Family Scheduling Appointment Referral: [facility] [address] [facility] [id number] Referral Order Note Incomplete Instructions Comment Date Elderly female residing in [facility] assisted living at [facility]. PMHx: dementia, cluster B personality traits, depression, hypothyroidism, HTN, anxiety, suicidal ideationsPOLST: FULL CODEFred Anatoly-spouse, Jszv: November/-therapist: weekly calls usually on :1 visits 3 times weekly 01/28/2024
--- OUTSIDE RECORDS SUMMARY | 2024-09-10 16:29 | XMS_ITS | CCD ---
Author Name Aida Sr CNP Address [address] [facility] [address] [place] [address] Phone Organization [facility] Phone Care Team Providers Care Shaft Tender Name Role Phone Aida Sr CNP Primary Care Provider Unavaila ble Orin [facility] Chronic [facility] Management Unavai lable Summary Purpose DataExchange Insurance Providers Payer name Policy type / Coverage type Covered constitution party ID Effective Begin Date Effective End Date [employer] Commercial Insurance [id number] Unknown Family History Family History data not [...] Fill Instructions sertraline 100 mg tablet RxNorm: 339806 Take 1 Tablet(s) Oral QD 07/29/19 024 Inactive Please authorize cycle refill. Thanks. acetaminophen 500 mg tablet RxNorm: 514650 Take 2 Tablet(s) Oral BID as needed 07/20/19 24 Inactive acetaminophen 500 mg tablet RxNorm: 102397 Take 2 Tablet(s) Oral BID as needed 07/20/19 24 Inactive sertraline 100 mg tablet RxNorm: 464231 Take 1 Tablet(s) Oral QD 07/13/19 24 024 Inactive donepezil 5 mg tablet RxNorm: 121955 TAKE ONE-HALF TABLET (2.5MG) BY MOUTH ONCE DAILY 07/05/20 023 Inactive Cycle refill request. Cycle restarts (07/19/23). risperidone 1 mg tablet RxNorm: 640243 Take 1 Tablet(s) Oral HS at bed time 06/25/20 024 Inactive quetiapine 25 mg tablet RxNorm: 383927 Take 1 Tablet(s) Oral Q4H every four hours as needed 06/25/20 024 Inactive trazodone 50 mg tablet RxNorm: 863601 Take 1 Tablet(s) Oral QHS every night at bedtime as needed 06/25/20 024 Inactive Senna-S 8.6 mg-50 mg tablet RxNorm: 333578 Take 1 Tablet(s) Oral BID as needed 06/25/20 23 023 Inactive trazodone 50 mg tablet RxNorm: 718687 Take 1 Tablet(s) Oral QHS every night at bedtime as needed 06/25/20 023 Inactive Senna-S 8.6 mg-50 mg tablet RxNorm: 668873 Take 1 Tablet(s) Oral BID as needed 06/25/20 024 Inactive acetaminophen 500 mg tablet RxNorm: 487720 Take 2 Tablet(s) Oral BID as needed 06/18/20 23 024 Inactive acetaminophen 500 mg tablet RxNorm: 407754 Take 2 Tablet(s) Oral BID as needed 06/18/20 23 023 Inactive Excedrin Extra Strength 250 mg-250 mg-65 mg tablet RxNorm: 196709 Take 2 Tablet(s) Oral QD as needed 06/18/20 23 023 Inactive Excedrin Extra Strength 250 mg-250 mg-65 mg tablet RxNorm: 242137 Take 2 Tablet(s) Oral QD as needed 06/18/20 024 Inactive donepezil 10 mg tablet RxNorm: 473449 Take 1 Tablet(s) Oral QD 06/04/20 024 Inactive risperidone 1 mg tablet RxNorm: 335500 Take 1 Tablet(s) Oral BID 06/04/20 023 Inactive quetiapine 25 mg tablet RxNorm: 455530 Take 1 Tablet(s) Oral BID as needed 06/04/20 023 Inactive trazodone 50 mg tablet RxNorm: 141617 Take 1 Tablet(s) Oral QHS every night at bedtime 06/04/20 023 Inactive risperidone 1 mg tablet RxNorm: 731707 Take 1 Tablet(s) Oral BID as needed 06/04/20 023 Inactive divalproex 125 mg capsule,delayed release sprinkle RxNorm: 2053156 TAKE 4 CAPSULES (500MG) BY MOUTH AT BEDTIME 06/03/20 024 Inactive Please authorize quantity 90 day supply with PRN refills for assisted living patient. Their cycle restarts 06/14/23. Thank you! Senexon-S 8.6 mg-50 mg tablet RxNorm: 7383440 Take 1 Tablet(s) Oral BID 06/03/20 023 Inactive Please authorize quantity 90 day supply with PRN refills for assisted living patient. Their cycle restarts 06/14/23. Thank you! memantine 5 mg tablet RxNorm: 947958 TAKE ONE-HALF TABLET (2.5MG) BY MOUTH TWICE DAILY 06/03/20 023 Inactive Please authorize quantity 90 day supply with PRN refills for assisted living patient. Their cycle restarts 06/14/23. Thank you! sertraline 50 mg tablet RxNorm: 608720 Take 1 Tablet(s) Oral QD 06/03/20 024 Inactive Please authorize quantity 90 day supply with PRN refills for assisted living patient. Their cycle restarts 06/14/23. Thank you! naproxen 500 mg tablet RxNorm: 214123 Take 1 Tablet(s) Oral BID 01/23/20 23 023 Inactive naproxen 500 mg tablet RxNorm: 353257 Take 1 Tablet(s) Oral BID 01/23/20 23 023 Inactive naproxen 500 mg tablet RxNorm: 019233 Take 1 Tablet(s) Oral BID 01/23/20 23 023 Inactive mirtazapine 15 mg tablet RxNorm: 538972 Take 1 Tablet(s) Oral HS at bed time 01/01/20 23 023 Inactive CYCLE FILL REQUEST FOR CYCLE THAT STARTS 01/04/2023 escitalopram 10 mg tablet RxNorm: 857684 Take 1 Tablet(s) Oral QAM every morning 12/14/19 23 023 Inactive Cycle refill request. Cycle restarts (01/04/23). cholecalciferol (vitamin D3) 50 mcg (2,000 unit) tablet RxNorm: 431268 Take 1 Tablet(s) Oral QAM every morning 12/14/19 23 023 Inactive Cycle refill request. Cycle restarts (01/04/23). melatonin 10 mg sublingual tablet RxNorm: 2939856 TAKE 1 TABLET BY MOUTH AT BEDTIME NOTE DOSAGE/STRENGTH* 12/14/19 023 Inactive Cycle refill request. Cycle restarts (01/04/23). rivastigmine 1.5 mg capsule RxNorm: 346151 Take 1 Capsule(s) Oral BID 12/14/19 23 023 Inactive Cycle refill request. Cycle restarts (01/04/23). quetiapine 100 mg tablet RxNorm: 146237 Take 1 Tablet(s) Oral HS at bed time 12/14/19 23 023 Inactive Cycle refill request. Cycle restarts (01/04/23). levothyroxine 50 mcg tablet RxNorm: 535863 TAKE 1 TABLET BY MOUTH ONCE DAILY BEFORE BREAKFAST 12/14/19 23 023 Inactive Cycle refill request. Cycle restarts (01/04/23). amlodipine 5 mg tablet RxNorm: 974826 Take 1 Tablet(s) Oral QAM every morning 12/14/19 23 023 Inactive Cycle refill request. Cycle restarts (01/04/23). buspirone 15 mg tablet RxNorm: 413975 Take 1 Tablet(s) Oral BID 12/14/19 23 023 Inactive Cycle refill request. Cycle restarts (01/04/23). amitriptyline 10 mg tablet RxNorm: 921329 Take 1 Tablet(s) Oral HS at bed time 12/14/19 23 023 Inactive Cycle refill request. Cycle restarts (01/04/23). levofloxacin 500 mg tablet RxNorm: 647204 Take 1 Tablet(s) Oral QD 11/24/19 23 023 Inactive levofloxacin 500 mg tablet RxNorm: 960728 Take 1 Tablet(s) Oral QD 11/24/19 23 023 Inactive levothyroxine 50 mcg tablet RxNorm: 307827 Take 1 Tablet(s) Oral QD before Breakfast 11/18/19 23 023 Inactive amitriptyline 10 mg tablet RxNorm: 657484 Take 1 Tablet(s) Oral QHS every night at bedtime 11/18/19 023 Inactive acetaminophen 500 mg tablet RxNorm: 941408 2 Tablet(s) Oral TID as needed 11/18/19 23 023 Inactive amlodipine 5 mg tablet RxNorm: 128777 Take 1 Tablet(s) Oral QAM every morning 11/18/19 023 Inactive melatonin 5 mg tablet RxNorm: 352817 Give 1 Tablet(s) Oral QHS every night at bedtime 11/18/19 023 Inactive buspirone 15 mg tablet RxNorm: 084679 Take 1 Tablet(s) Oral BID 11/18/19 023 Inactive Seroquel 25 mg tablet RxNorm: 194249 Take 1 Tablet(s) Oral QHS every night at bedtime 11/18/19 023 Inactive cholecalciferol (vitamin D3) 50 mcg (2,000 unit) tablet RxNorm: 067341 Take 1 Tablet(s) Oral QD 11/18/19 023 Inactive rivastigmine 1.5 mg capsule RxNorm: 943616 Take 2 Capsule(s) Oral BID 11/18/19 023 Inactive mirtazapine 15 mg tablet RxNorm: 589875 Take 1 Tablet(s) Oral QHS every night at bedtime 11/18/19 023 Inactive aspirin-acetaminoph en-caffeine 250 mg-250 mg-65 mg tablet RxNorm: 682217 Take 2 Tablet(s) Oral QD as needed 11/18/19 023 Inactive escitalopram 10 mg tablet RxNorm: 580723 Take 1 Tablet(s) Oral QD 11/18/19 023 Inactive Medication Administered No Medication Administered data Immunizations Vaccine Codes Dose Date Status Influenza CVX: 205 1.0 04/06/2022 Covid-19 ([employer] mR NA, LNP-S, PF, 30 mcg/0.3 mL [...] Result Date Service Location Comprehensive Metabolic Panel 06866 Sodium 2951-2 137 mmol/L 08/17/19 24 Unknown Comprehensive Metabolic Panel 57632 POTASSIUM ([place]) 2823-3 4.2 mmol/L 08/17/19 24 Unknown Comprehensive Metabolic Panel 81043 UREA NITROGEN ([place]) 10.0 mg/dL 08/17/19 24 Unknown Comprehensive Metabolic Panel 42244 CHLORIDE ([place]) 102 mmol/L 08/17/19 24 Unknown Comprehensive Metabolic Panel 32923 CO2 ([place]) 19 mmol/L 08/17/19 24 Unknown Comprehensive Metabolic Panel 28026 ANION GAP ([place]) 16 mmol/L 08/17/19 24 Unknown Comprehensive Metabolic Panel 20383 Creatinine 2160-0 0.62 mg/dL 08/17/19 24 Unknown Comprehensive Metabolic Panel 97155 GLUCOSE ([place]) 2345-7 150 mg/dL 08/17/19 24 Unknown Comprehensive Metabolic Panel 73692 Calcium 08885-0 9.3 mg/dL 08/17/19 24 Unknown Comprehensive Metabolic Panel 36197 Alkaline Phosphatase 70 U/L 08/17/19 24 Unknown Comprehensive Metabolic Panel 71729 AST 55 U/L 08/17/19 24 Unknown Comprehensive Metabolic Panel 22713 PROTEIN, TOTAL 2885-2 6.5 g/dL 08/17/19 24 Unknown Comprehensive Metabolic Panel 20241 ALT 54 U/L 08/17/19 24 Unknown Comprehensive Metabolic Panel 39177 Albumin 1751-7 4.0 g/dL 08/17/19 24 Unknown Comprehensive Metabolic Panel 15909 GFR, ESTIMATE 83367-0 86 mL/min/1.7 3m2 08/17/19 24 Unknown Comprehensive Metabolic Panel 79085 Bilirubin Total 0.5 mg/dL 08/17/19 24 Unknown CBC with Platelets [id number] WBC COUNT (AUTOMATED) 5.2 10e3/uL 08/16/19 24 Unknown CBC with Platelets BSK005 RBC COUNT 789-8 4.10 10e6/uL 08/16/19 24 Unknown CBC with Platelets [id number] Hemoglobin 718-7 13.6 g/dL 08/16/19 24 Unknown CBC with Platelets [id number] Hematocrit 4544-3 39.8 % 08/16/19 24 Unknown CBC with Platelets EAM658 MCV 787-2 97 fL 08/16/19 24 Unknown CBC with Platelets [id number] MCH 33.2 pg 08/16/19 24 Unknown CBC with Platelets WSC016 MCHC 34.2 g/dL 08/16/19 24 Unknown CBC with Platelets SAA600 RDW 12.3 % 08/16/19 24 Unknown CBC with Platelets [id number] Platelet Count 777-3 228 10e3/uL 08/16/19 24 Unknown Reason For Visit No Reason For Visit data Plan of Care Planned Activity Notes Codes Status Date Appointment: Aida Sr WPtel: [address] [place] [address] [id number] [place] F/U 07/23/2023 Appointment: Aida Sr WPtel: [address] [place] [address] [id number] [place] F/U 06/25/2023 Appointment: Bam Frey: [address] [place] [address] 300 [id number] SDV 01/22/2023 Appointment: Eric Srcy WPtel: [address] [place] [address] [id number] NPAWV 11/20/2022 Referral: General Psychiatrist Referral Patient/Family Scheduling Appointment Referral: VIA [facility]- [facility] n Home Visits WPtel: [address], [address] [id number] Referral Order Note Incomplete Instructions Comment Date Elderly female residing in [facility] assisted living at [facility]. PMHx: dementia, cluster B personality traits, depression, hypothyroidism, HTN, anxiety, suicidal ideationsPOLST: FULL CODEFred Anatoly-spouse, Jdnv: -therapist: weekly calls usually on :1 visits 3 times weekly 01/28/2024
--- OUTSIDE RECORDS SUMMARY | 2024-09-10 16:30 | XMS_ITS | CCD ---
Author Name Aida Sr CNP Address [address] [facility] [address] [place] [address] Phone Organization [facility] Phone Care Team Providers Care Bean Roaster Name Role Phone Aida Sr CNP Primary Care Provider Unavaila ble Orin PSYCHOLOGICAL EXAMINERAida Chronic Care Management Unavai lable Summary Purpose DataExchange Insurance Providers Payer name Policy type / Coverage type Covered libertarian ID Effective Begin Date Effective End Date [employer] Commercial Insurance [id number] Unknown Family History Family History data not [...] Tylenol Extra Strength 500 mg tablet RxNorm: 459367 Take 2 Tablet(s) Oral BID as needed 09/13/19 24 024 Inactive trazodone 50 mg tablet RxNorm: 908427 Take 1 Tablet(s) Oral QHS every night at bedtime 09/13/19 24 024 Inactive quetiapine 100 mg tablet RxNorm: 231530 Take 1.5 Tablet(s) Oral HS at bed time 09/13/19 24 024 Inactive Senexon-S 8.6 mg-50 mg tablet RxNorm: 8525232 Take 1 Tablet(s) Oral BID as needed 09/13/19 24 025 Inactive sertraline 100 mg tablet RxNorm: 557758 Take 1.5 Tablet(s) Oral QD 09/13/19 24 024 Inactive Pain Reliever Plus 250 mg-250 mg-65 mg tablet RxNorm: 732793 Take 2 Tablet(s) Oral QD as needed 09/13/19 24 024 Inactive acetaminophen 500 mg tablet RxNorm: 609963 Take 2 Tablet(s) Oral BID as needed 09/13/19 24 024 Inactive sertraline 100 mg tablet RxNorm: 803153 Take 1 Tablet(s) Oral QD 07/29/19 24 Inactive Please authorize cycle refill. Thanks. acetaminophen 500 mg tablet RxNorm: 423212 Take 2 Tablet(s) Oral BID as needed 07/20/19 24 024 Inactive acetaminophen 500 mg tablet RxNorm: 943185 Take 2 Tablet(s) Oral BID as needed 07/20/19 24 024 Inactive sertraline 100 mg tablet RxNorm: 019677 Take 1 Tablet(s) Oral QD 07/13/19 024 Inactive donepezil 5 mg tablet RxNorm: 285518 TAKE ONE-HALF TABLET (2.5MG) BY MOUTH ONCE DAILY 07/05/20 023 Inactive Cycle refill request. Cycle restarts (07/19/23). risperidone 1 mg tablet RxNorm: 160719 Take 1 Tablet(s) Oral HS at bed time 06/25/20 024 Inactive quetiapine 25 mg tablet RxNorm: 231310 Take 1 Tablet(s) Oral Q4H every four hours as needed 06/25/20 23 024 Inactive trazodone 50 mg tablet RxNorm: 358528 Take 1 Tablet(s) Oral QHS every night at bedtime as needed 06/25/20 23 024 Inactive Senna-S 8.6 mg-50 mg tablet RxNorm: 461509 Take 1 Tablet(s) Oral BID as needed 06/25/20 23 023 Inactive trazodone 50 mg tablet RxNorm: 762028 Take 1 Tablet(s) Oral QHS every night at bedtime as needed 06/25/20 23 023 Inactive Senna-S 8.6 mg-50 mg tablet RxNorm: 695372 Take 1 Tablet(s) Oral BID as needed 06/25/20 024 Inactive acetaminophen 500 mg tablet RxNorm: 183100 Take 2 Tablet(s) Oral BID as needed 06/18/20 23 024 Inactive acetaminophen 500 mg tablet RxNorm: 871632 Take 2 Tablet(s) Oral BID as needed 06/18/20 023 Inactive Excedrin Extra Strength 250 mg-250 mg-65 mg tablet RxNorm: 000028 Take 2 Tablet(s) Oral QD as needed 06/18/20 023 Inactive Excedrin Extra Strength 250 mg-250 mg-65 mg tablet RxNorm: 278487 Take 2 Tablet(s) Oral QD as needed 06/18/20 024 Inactive risperidone 1 mg tablet RxNorm: 211786 Take 1 Tablet(s) Oral BID 06/04/20 023 Inactive quetiapine 25 mg tablet RxNorm: 020534 Take 1 Tablet(s) Oral BID as needed 06/04/20 023 Inactive trazodone 50 mg tablet RxNorm: 562131 Take 1 Tablet(s) Oral QHS every night at bedtime 06/04/20 023 Inactive donepezil 10 mg tablet RxNorm: 931653 Take 1 Tablet(s) Oral QD 06/04/20 024 Inactive risperidone 1 mg tablet RxNorm: 000136 Take 1 Tablet(s) Oral BID as needed 06/04/20 023 Inactive Senexon-S 8.6 mg-50 mg tablet RxNorm: 9888295 Take 1 Tablet(s) Oral BID 06/03/20 023 Inactive Please authorize quantity 90 day supply with PRN refills for assisted living patient. Their cycle restarts 06/14/23. Thank you! memantine 5 mg tablet RxNorm: 855813 TAKE ONE-HALF TABLET (2.5MG) BY MOUTH TWICE DAILY 06/03/20 023 Inactive Please authorize quantity 90 day supply with PRN refills for assisted living patient. Their cycle restarts 06/14/23. Thank you! divalproex 125 mg capsule,delayed release sprinkle RxNorm: 9532164 TAKE 4 CAPSULES (500MG) BY MOUTH AT BEDTIME 06/03/20 024 Inactive Please authorize quantity 90 day supply with PRN refills for assisted living patient. Their cycle restarts 06/14/23. Thank you! sertraline 50 mg tablet RxNorm: 115975 Take 1 Tablet(s) Oral QD 06/03/20 024 Inactive Please authorize quantity 90 day supply with PRN refills for assisted living patient. Their cycle restarts 06/14/23. Thank you! naproxen 500 mg tablet RxNorm: 919018 Take 1 Tablet(s) Oral BID 01/23/20 023 Inactive naproxen 500 mg tablet RxNorm: 046855 Take 1 Tablet(s) Oral BID 01/23/20 23 023 Inactive naproxen 500 mg tablet RxNorm: 031342 Take 1 Tablet(s) Oral BID 01/23/20 023 Inactive mirtazapine 15 mg tablet RxNorm: 898101 Take 1 Tablet(s) Oral HS at bed time 01/01/20 023 Inactive CYCLE FILL REQUEST FOR CYCLE THAT STARTS 01/04/2023 escitalopram 10 mg tablet RxNorm: 255060 Take 1 Tablet(s) Oral QAM every morning 12/14/19 023 Inactive Cycle refill request. Cycle restarts (01/04/23). cholecalciferol (vitamin D3) 50 mcg (2,000 unit) tablet RxNorm: 378383 Take 1 Tablet(s) Oral QAM every morning 12/14/19 23 023 Inactive Cycle refill request. Cycle restarts (01/04/23). melatonin 10 mg sublingual tablet RxNorm: 0346622 TAKE 1 TABLET BY MOUTH AT BEDTIME NOTE DOSAGE/STRENGTH* 12/14/19 023 Inactive Cycle refill request. Cycle restarts (01/04/23). rivastigmine 1.5 mg capsule RxNorm: 126632 Take 1 Capsule(s) Oral BID 12/14/19 023 Inactive Cycle refill request. Cycle restarts (01/04/23). quetiapine 100 mg tablet RxNorm: 225572 Take 1 Tablet(s) Oral HS at bed time 12/14/19 23 023 Inactive Cycle refill request. Cycle restarts (01/04/23). levothyroxine 50 mcg tablet RxNorm: 079766 TAKE 1 TABLET BY MOUTH ONCE DAILY BEFORE BREAKFAST 12/14/19 23 023 Inactive Cycle refill request. Cycle restarts (01/04/23). amlodipine 5 mg tablet RxNorm: 959491 Take 1 Tablet(s) Oral QAM every morning 12/14/19 23 023 Inactive Cycle refill request. Cycle restarts (01/04/23). buspirone 15 mg tablet RxNorm: 823710 Take 1 Tablet(s) Oral BID 12/14/19 23 023 Inactive Cycle refill request. Cycle restarts (01/04/23). amitriptyline 10 mg tablet RxNorm: 549721 Take 1 Tablet(s) Oral HS at bed time 12/14/19 23 023 Inactive Cycle refill request. Cycle restarts (01/04/23). levofloxacin 500 mg tablet RxNorm: 247032 Take 1 Tablet(s) Oral QD 11/24/19 23 023 Inactive levofloxacin 500 mg tablet RxNorm: 674076 Take 1 Tablet(s) Oral QD 11/24/19 23 023 Inactive levothyroxine 50 mcg tablet RxNorm: 965961 Take 1 Tablet(s) Oral QD before Breakfast 11/18/19 23 023 Inactive amitriptyline 10 mg tablet RxNorm: 707294 Take 1 Tablet(s) Oral QHS every night at bedtime 11/18/19 23 023 Inactive acetaminophen 500 mg tablet RxNorm: 985437 2 Tablet(s) Oral TID as needed 11/18/19 23 023 Inactive amlodipine 5 mg tablet RxNorm: 627642 Take 1 Tablet(s) Oral QAM every morning 11/18/19 23 023 Inactive melatonin 5 mg tablet RxNorm: 415045 Give 1 Tablet(s) Oral QHS every night at bedtime 11/18/19 23 023 Inactive buspirone 15 mg tablet RxNorm: 546679 Take 1 Tablet(s) Oral BID 11/18/19 23 023 Inactive Seroquel 25 mg tablet RxNorm: 749176 Take 1 Tablet(s) Oral QHS every night at bedtime 11/18/19 023 Inactive cholecalciferol (vitamin D3) 50 mcg (2,000 unit) tablet RxNorm: 023821 Take 1 Tablet(s) Oral QD 11/18/19 023 Inactive rivastigmine 1.5 mg capsule RxNorm: 151739 Take 2 Capsule(s) Oral BID 11/18/19 023 Inactive mirtazapine 15 mg tablet RxNorm: 113852 Take 1 Tablet(s) Oral QHS every night at bedtime 11/18/19 023 Inactive aspirin-acetaminoph en-caffeine 250 mg-250 mg-65 mg tablet RxNorm: 160549 Take 2 Tablet(s) Oral QD as needed 11/18/19 023 Inactive escitalopram 10 mg tablet RxNorm: 301244 Take 1 Tablet(s) Oral QD 11/18/19 023 Inactive Medication Administered No Medication Administered data Immunizations Vaccine Codes Dose Date Status Influenza CVX: 205 1.0 04/06/2022 Covid-19 ([employer] mR NA, LNP-S, PF, 30 mcg/0.3 mL [...] Date Patient Education: Patient Medication Summary Completed 10/02/2023 Appointment: Aida Sr WPtel: [address] [place], [place] [phone] F/U 09/17/2023 Appointment: Aida Sr WPtel: [address] [place], [place] [phone] [place] F/U 07/23/2023 Appointment: Aida Sr WPtel: [address] [place], [place] [phone] [place] F/U 06/25/2023 Appointment: Bam Frey: [address] [place], [place] [phone] SDV 01/22/2023 Appointment: Aida Sr WPtel: [address] [place], [place] [phone] NPAWV 11/20/2022 Referral: General Psychiatrist Referral Patient/Family Scheduling Appointment Referral: VIA Orthopedics- I n Home Visits WPtel: [address], [address] [id number] Referral Order Note Incomplete Instructions Comment Date Elderly female residing in [facility] assisted living at [facility]. PMHx: dementia, cluster B personality traits, depression, hypothyroidism, HTN, anxiety, suicidal ideationsPOLST: FULL CODEFred Anatoly-spouse, Nclu: -therapist: weekly calls usually on :1 visits 3 times weekly 01/28/2024
--- OUTSIDE RECORDS SUMMARY | 2024-09-10 16:30 | XMS_ITS | CCD ---
Author Name Aida Sr CNP Address [address] [place] [address] Phone Organization [facility] Phone Care Team Providers Care Chemical Applicator Name Role Phone Orin RADHAAida Primary Care Provider Unavaila ble Orin RADHAAida Chronic Care Management Unavai lable Summary Purpose DataExchange Insurance Providers Payer name Policy type / Coverage type Covered green party ID Effective Begin Date Effective End Date Massive Damage Commercial Insurance [id number] Unknown Family history Runs in the family Diagnosis Age At Onset No Known Diseases N/A Social History Social History Element Codes Description Effec tive Dates Marital status Unknown 01/28/2024 Living arrangements Unknown Memory Care 01/28/[address]: 924158948 Never smoker 01/[address]: 827506697 No Alcohol Consum ption 01/28/2024 Sexually Active? 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 ICD-9: 344.9 05/05/2024 [...] Date Stop Date Status Fill Instructions risperidone 0.5 mg tablet RxNorm: 368967 Take 1 Tablet(s) Oral QAM every morning 03/14/20 24 024 Inactive risperidone 1 mg tablet RxNorm: 640176 Take 1 Tablet(s) Oral HS at bed time 02/22/20 24 024 Inactive acetaminophen 500 mg tablet RxNorm: 741417 Take 2 Tablet(s) Oral TID as needed 02/22/20 24 No Stop Date Active acetaminophen 500 mg tablet RxNorm: 002154 Take 2 Tablet(s) Oral TID as needed 02/22/20 24 024 Inactive sertraline 100 mg tablet RxNorm: 353130 Take 1 Tablet(s) Oral QD Take w/ 50mg tablet 01/27/20 24 025 Active sertraline 50 mg tablet RxNorm: 761802 Take 1 Tablet(s) Oral QD Take w/ 100mg tablet 01/27/20 24 025 Active acetaminophen 500 mg tablet RxNorm: 694239 Take 2 Tablet(s) Oral TID as needed 01/27/20 24 024 Inactive amlodipine 5 mg tablet RxNorm: 329256 Take 1 Tablet(s) Oral QAM every morning 01/09/20 24 048 Active REFILL REQUEST FOR CYCLE THAT BEGINS 01/30, THANK YOU! levothyroxine 50 mcg tablet RxNorm: 865720 Take 1 Tablet(s) Oral QD BEFORE BREAKFAST 01/09/20 24 048 Active REFILL REQUEST FOR CYCLE THAT BEGINS 01/30, THANK YOU! cholecalciferol (vitamin D3) 50 mcg (2,000 unit) tablet RxNorm: 591493 Take 1 Tablet(s) Oral QAM every morning 01/09/20 24 048 Active REFILL REQUEST FOR CYCLE THAT BEGINS 01/30, THANK YOU! risperidone 0.5 mg tablet RxNorm: 354484 Take 1 Tablet(s) Oral BID 01/09/20 24 024 Inactive REFILL REQUEST FOR CYCLE THAT BEGINS 01/30, THANK YOU! sertraline 50 mg tablet RxNorm: 988887 TAKE 1 TABLET BY MOUTH ONCE DAILY. TAKE ALONG WITH 100 MG TABLET DAILY FOR A TOTAL DOSE OF 150 MG 01/09/20 24 024 Inactive REFILL REQUEST FOR CYCLE THAT BEGINS 01/30, THANK YOU! risperidone 0.5 mg tablet RxNorm: 334869 Take 1 Tablet(s) Oral BID 01/07/20 24 024 Inactive levofloxacin 500 mg tablet RxNorm: 171293 Take 1 Tablet(s) Oral QD 12/31/19 24 024 Inactive acetaminophen 500 mg tablet RxNorm: 522290 Take 2 Tablet(s) Oral TID 12/31/19 24 024 Inactive levofloxacin 500 mg tablet RxNorm: 263273 Take 1 Tablet(s) Oral QD 12/31/19 24 024 Inactive divalproex ER 250 mg tablet,extended release 24 hr RxNorm: 1820747 TAKE 1 TABLET BY MOUTH AT BEDTIME HAZARDOUS DRUG-DOUBLE GLOVE 10/21/19 24 048 Active CYCLE FILL REFILL REQUEST FOR CYCLE FILL THAT STARTS 11/08/2023. risperidone 1 mg tablet RxNorm: 013717 Take 1 Tablet(s) Oral BID 10/21/19 24 024 Inactive CYCLE FILL REFILL REQUEST FOR CYCLE FILL THAT STARTS 11/08/2023. Senexon-S 8.6 mg-50 mg tablet RxNorm: 7079081 Take 1 Tablet(s) Oral BID as needed 09/13/19 24 025 Inactive acetaminophen 500 mg tablet RxNorm: 087433 Take 2 Tablet(s) Oral BID as needed 09/13/19 24 024 Inactive Tylenol Extra Strength 500 mg tablet RxNorm: 183749 Take 2 Tablet(s) Oral BID as needed 09/13/19 24 024 Inactive trazodone 50 mg tablet RxNorm: 333061 Take 1 Tablet(s) Oral QHS every night at bedtime 09/13/19 24 024 Inactive quetiapine 100 mg tablet RxNorm: 375864 Take 1.5 Tablet(s) Oral HS at bed time 09/13/19 24 024 Inactive sertraline 100 mg tablet RxNorm: 287393 Take 1.5 Tablet(s) Oral QD 09/13/19 24 024 Inactive Pain Reliever Plus 250 mg-250 mg-65 mg tablet RxNorm: 645787 Take 2 Tablet(s) Oral QD as needed 09/13/19 24 024 Inactive sertraline 100 mg tablet RxNorm: 862626 Take 1 Tablet(s) Oral QD 07/29/19 24 024 Inactive Please authorize cycle refill. Thanks. acetaminophen 500 mg tablet RxNorm: 619577 Take 2 Tablet(s) Oral BID as needed 07/20/19 24 Inactive acetaminophen 500 mg tablet RxNorm: 899553 Take 2 Tablet(s) Oral BID as needed 07/20/19 24 Inactive sertraline 100 mg tablet RxNorm: 337157 Take 1 Tablet(s) Oral QD 07/13/19 024 Inactive donepezil 5 mg tablet RxNorm: 061362 TAKE ONE-HALF TABLET (2.5MG) BY MOUTH ONCE DAILY 07/05/20 023 Inactive Cycle refill request. Cycle restarts (07/19/23). risperidone 1 mg tablet RxNorm: 004723 Take 1 Tablet(s) Oral HS at bed time 06/25/20 024 Inactive trazodone 50 mg tablet RxNorm: 759413 Take 1 Tablet(s) Oral QHS every night at bedtime as needed 06/25/20 23 024 Inactive quetiapine 25 mg tablet RxNorm: 688596 Take 1 Tablet(s) Oral Q4H every four hours as needed 06/25/20 23 024 Inactive Senna-S 8.6 mg-50 mg tablet RxNorm: 744086 Take 1 Tablet(s) Oral BID as needed 06/25/20 23 023 Inactive trazodone 50 mg tablet RxNorm: 246802 Take 1 Tablet(s) Oral QHS every night at bedtime as needed 06/25/20 23 023 Inactive Senna-S 8.6 mg-50 mg tablet RxNorm: 399151 Take 1 Tablet(s) Oral BID as needed 06/25/20 024 Inactive acetaminophen 500 mg tablet RxNorm: 372556 Take 2 Tablet(s) Oral BID as needed 06/18/20 024 Inactive acetaminophen 500 mg tablet RxNorm: 884377 Take 2 Tablet(s) Oral BID as needed 06/18/20 023 Inactive Excedrin Extra Strength 250 mg-250 mg-65 mg tablet RxNorm: 293078 Take 2 Tablet(s) Oral QD as needed 06/18/20 023 Inactive Excedrin Extra Strength 250 mg-250 mg-65 mg tablet RxNorm: 521112 Take 2 Tablet(s) Oral QD as needed 06/18/20 024 Inactive risperidone 1 mg tablet RxNorm: 301582 Take 1 Tablet(s) Oral BID 06/04/20 023 Inactive quetiapine 25 mg tablet RxNorm: 719729 Take 1 Tablet(s) Oral BID as needed 06/04/20 023 Inactive trazodone 50 mg tablet RxNorm: 028114 Take 1 Tablet(s) Oral QHS every night at bedtime 06/04/20 023 Inactive donepezil 10 mg tablet RxNorm: 373727 Take 1 Tablet(s) Oral QD 06/04/20 024 Inactive risperidone 1 mg tablet RxNorm: 263847 Take 1 Tablet(s) Oral BID as needed 06/04/20 023 Inactive Senexon-S 8.6 mg-50 mg tablet RxNorm: 7346502 Take 1 Tablet(s) Oral BID 06/03/20 023 Inactive Please authorize quantity 90 day supply with PRN refills for assisted living patient. Their cycle restarts 06/14/23. Thank you! memantine 5 mg tablet RxNorm: 520249 TAKE ONE-HALF TABLET (2.5MG) BY MOUTH TWICE DAILY 06/03/20 023 Inactive Please authorize quantity 90 day supply with PRN refills for assisted living patient. Their cycle restarts 06/14/23. Thank you! divalproex 125 mg capsule,delayed release sprinkle RxNorm: 5440840 TAKE 4 CAPSULES (500MG) BY MOUTH AT BEDTIME 06/03/20 23 024 Inactive Please authorize quantity 90 day supply with PRN refills for assisted living patient. Their cycle restarts 06/14/23. Thank you! sertraline 50 mg tablet RxNorm: 510973 Take 1 Tablet(s) Oral QD 06/03/20 024 Inactive Please authorize quantity 90 day supply with PRN refills for assisted living patient. Their cycle restarts 06/14/23. Thank you! naproxen 500 mg tablet RxNorm: 582430 Take 1 Tablet(s) Oral BID 01/23/20 023 Inactive naproxen 500 mg tablet RxNorm: 236722 Take 1 Tablet(s) Oral BID 01/23/20 23 023 Inactive naproxen 500 mg tablet RxNorm: 611464 Take 1 Tablet(s) Oral BID 01/23/20 023 Inactive mirtazapine 15 mg tablet RxNorm: 765553 Take 1 Tablet(s) Oral HS at bed time 01/01/20 023 Inactive CYCLE FILL REQUEST FOR CYCLE THAT STARTS 01/04/2023 escitalopram 10 mg tablet RxNorm: 920815 Take 1 Tablet(s) Oral QAM every morning 12/14/19 023 Inactive Cycle refill request. Cycle restarts (01/04/23). cholecalciferol (vitamin D3) 50 mcg (2,000 unit) tablet RxNorm: 810338 Take 1 Tablet(s) Oral QAM every morning 12/14/19 23 023 Inactive Cycle refill request. Cycle restarts (01/04/23). melatonin 10 mg sublingual tablet RxNorm: 8910410 TAKE 1 TABLET BY MOUTH AT BEDTIME NOTE DOSAGE/STRENGTH* 12/14/19 23 023 Inactive Cycle refill request. Cycle restarts (01/04/23). rivastigmine 1.5 mg capsule RxNorm: 492270 Take 1 Capsule(s) Oral BID 12/14/19 23 023 Inactive Cycle refill request. Cycle restarts (01/04/23). quetiapine 100 mg tablet RxNorm: 951134 Take 1 Tablet(s) Oral HS at bed time 12/14/19 23 023 Inactive Cycle refill request. Cycle restarts (01/04/23). levothyroxine 50 mcg tablet RxNorm: 601779 TAKE 1 TABLET BY MOUTH ONCE DAILY BEFORE BREAKFAST 12/14/19 23 023 Inactive Cycle refill request. Cycle restarts (01/04/23). amlodipine 5 mg tablet RxNorm: 217833 Take 1 Tablet(s) Oral QAM every morning 12/14/19 23 023 Inactive Cycle refill request. Cycle restarts (01/04/23). buspirone 15 mg tablet RxNorm: 345181 Take 1 Tablet(s) Oral BID 12/14/19 23 023 Inactive Cycle refill request. Cycle restarts (01/04/23). amitriptyline 10 mg tablet RxNorm: 054658 Take 1 Tablet(s) Oral HS at bed time 12/14/19 23 023 Inactive Cycle refill request. Cycle restarts (01/04/23). levofloxacin 500 mg tablet RxNorm: 633065 Take 1 Tablet(s) Oral QD 11/24/19 23 023 Inactive levofloxacin 500 mg tablet RxNorm: 993157 Take 1 Tablet(s) Oral QD 11/24/19 23 023 Inactive levothyroxine 50 mcg tablet RxNorm: 791509 Take 1 Tablet(s) Oral QD before Breakfast 11/18/19 23 023 Inactive amitriptyline 10 mg tablet RxNorm: 202430 Take 1 Tablet(s) Oral QHS every night at bedtime 11/18/19 23 023 Inactive acetaminophen 500 mg tablet RxNorm: 950263 2 Tablet(s) Oral TID as needed 11/18/19 23 023 Inactive amlodipine 5 mg tablet RxNorm: 571439 Take 1 Tablet(s) Oral QAM every morning 11/18/19 23 023 Inactive melatonin 5 mg tablet RxNorm: 157353 Give 1 Tablet(s) Oral QHS every night at bedtime 11/18/19 023 Inactive buspirone 15 mg tablet RxNorm: 931890 Take 1 Tablet(s) Oral BID 11/18/19 023 Inactive Seroquel 25 mg tablet RxNorm: 067278 Take 1 Tablet(s) Oral QHS every night at bedtime 11/18/19 023 Inactive cholecalciferol (vitamin D3) 50 mcg (2,000 unit) tablet RxNorm: 846767 Take 1 Tablet(s) Oral QD 11/18/19 023 Inactive rivastigmine 1.5 mg capsule RxNorm: 594505 Take 2 Capsule(s) Oral BID 11/18/19 023 Inactive mirtazapine 15 mg tablet RxNorm: 731206 Take 1 Tablet(s) Oral QHS every night at bedtime 11/18/19 023 Inactive aspirin-acetaminoph en-caffeine 250 mg-250 mg-65 mg tablet RxNorm: 807774 Take 2 Tablet(s) Oral QD as needed 11/18/19 023 Inactive escitalopram 10 mg tablet RxNorm: 789700 Take 1 Tablet(s) Oral QD 11/18/19 023 Inactive Medication Administered No Medication Administered data Immunizations Vaccine Codes Dose Date Status Influenza CVX: 205 1.0 04/06/2022 Covid-19 (Pro Hoop Strength mR NA, LNP-S, PF, 30 mcg/0.3 mL [...] 33 1.0 09/04/2000 Vital Signs Date Vital 06/02/2024 Blood Pressure 1: 131/78 Code: 8480-6 Heart Rate 1: 65 bpm Code: 8867-4 Respiratory Rate: 18 bpm Temperature: 36.2 (C) / 97.1 (F) Weight: 161 lbs 2 oz Code: 3141-9 Functional Status Functional / [...] Encounter Performer Location Location Address Codes Date ([address]171) Home or Residence Visit Est Pt - Moderate Level, 40 mins Diagnosis: Fall[ICD10: W19.XXXA] Diagnosis: HTN (hypertension)[IC D10: I10] Diagnosis: Insomnia[ICD10: G47.00] Diagnosis: Depression, major, recurrent, 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] Aida Sr [facility] at [address] [address] CPT-4: 00515 06/02/2024 Plan of Care Planned Activity Notes Codes Status Date Patient Education: Patient Medication Summary Completed 06/02/2024 Patient Education: Influenza Complet ed 06/02/2024 Appointment: Eric Srcy WPtel: [address] [place], [place] [phone] [place] F/U 12/31/2023 Appointment: Orin Aida WPtel: [address] [place], [place] [phone] [place] F/U 09/17/2023 Appointment: Orin, Aida WPtel: [address] [place], [place] [phone] [place] F/U 07/23/2023 Appointment: Orin, Aida WPtel: [address] [place], [place] [phone] [place] F/U 06/25/2023 Appointment: Bam Frey: [address] [place], [place] [phone] [place] SDV 01/22/2023 Appointment: Aida Sr WPtel: [address] [place], [place] [phone] NPAWV 11/20/2022 Referral: General Psychiatrist Referral Patient/Family Scheduling Appointment Referral: [facility] Home Visits WPtel: [address] [id number] Referral Order Note Incomplete Instructions Comment Date Elderly female [place] [facility] [place] [facility] [place] PMHx: dementia, cluster B personality traits, depression, hypothyroidism, HTN, anxiety, suicidal ideationsPOLST: FULL CODEFred Anatoly-spouse, Oosj: November/Scotty-therapist: weekly calls usually on -1:1 visits 3 times weekly 01/28/2024 Insomnia depakote 250mg qHS, resperidone 1mg qHS. Monitor for difficulty sleeping, irritation, increased behaviors & daytime tiredness. 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 Follow with psych as directed. Appreciate BHI. Monitor for increased sadness, depression, increased sleeping, self-isolating, & decreased appetite. HTN (hypertension) amlodipine 5mg qd. Care plan: Routinely monitor blood pressures to follow trends. Goal is less than 150/90. Watch for side effects to medications and for over treatment, which can cause hypotension. Fall 05/30 non-injury fall reported. Walker with ambulation. PT/OT following. Continue fall precautions. Staff to report falls & change in condition, weakness, loss of balance, change in gait. 06/02/2024
--- OUTSIDE RECORDS SUMMARY | 2024-09-10 16:30 | XMS_ITS | CCD ---
Author Name Aida Sr CNP Address [address] [place] [address] Phone Organization [facility] Phone Care Team Providers Care Soubrette Name Role Phone Orin RADHAAida Primary Care Provider Unavaila ble Orin RADHAAida Chronic Care Management Unavai lable Summary Purpose DataExchange Insurance Providers Payer name Policy type / Coverage type Covered republican ID Effective Begin Date Effective End Date [employer] Commercial Insurance [id number] Unknown Family history Runs in the family Diagnosis Age At Onset No Known Diseases N/A Social History Social History Element Codes Description Effec tive Dates Marital status Unknown 01/28/2024 Living arrangements Unknown Memory Care 01/28/[address]: 750516812 Never smoker 01/[address]: 525536238 No Alcohol Consum ption 01/28/2024 Sexually Active? [...] Start Date Stop Date Status Fill Instructions donepezil 5 mg tablet RxNorm: 541620 TAKE ONE-HALF TABLET (2.5MG) BY MOUTH ONCE DAILY 07/20/19 25 049 Active CYCLE FILL REFILL REQUEST FOR CYCLE FILL THAT STARTS 08/14/2024 Senexon-S 8.6 mg-50 mg tablet RxNorm: 3891209 Take 1 Tablet(s) Oral BID as needed 06/30/20 24 028 Active risperidone 1 mg tablet RxNorm: 610988 Take 1 Tablet(s) Oral BID 06/26/20 24 025 Active memantine 5 mg tablet RxNorm: 499677 TAKE ONE-HALF TABLET (2.5MG) BY MOUTH TWICE DAILY 06/23/20 24 049 Active REFILL REQUEST FOR CYCLE THAT BEGINS 07/17, THANK YOU risperidone 0.5 mg tablet RxNorm: 336373 Take 1 Tablet(s) Oral QAM every morning 03/14/20 24 024 Inactive acetaminophen 500 mg tablet RxNorm: 654510 Take 2 Tablet(s) Oral TID as needed 02/22/20 24 No Stop Date Active risperidone 1 mg tablet RxNorm: 381843 Take 1 Tablet(s) Oral HS at bed time 02/22/20 24 024 Inactive acetaminophen 500 mg tablet RxNorm: 711342 Take 2 Tablet(s) Oral TID as needed 02/22/20 24 024 Inactive sertraline 100 mg tablet RxNorm: 392393 Take 1 Tablet(s) Oral QD Take w/ 50mg tablet 01/27/20 24 025 Active sertraline 50 mg tablet RxNorm: 420590 Take 1 Tablet(s) Oral QD Take w/ 100mg tablet 01/27/20 24 025 Active acetaminophen 500 mg tablet RxNorm: 688216 Take 2 Tablet(s) Oral TID as needed 01/27/20 24 024 Inactive amlodipine 5 mg tablet RxNorm: 597801 Take 1 Tablet(s) Oral QAM every morning 01/09/20 24 048 Active REFILL REQUEST FOR CYCLE THAT BEGINS 01/30, THANK YOU! levothyroxine 50 mcg tablet RxNorm: 844743 Take 1 Tablet(s) Oral QD BEFORE BREAKFAST 01/09/20 24 048 Active REFILL REQUEST FOR CYCLE THAT BEGINS 01/30, THANK YOU! cholecalciferol (vitamin D3) 50 mcg (2,000 unit) tablet RxNorm: 103638 Take 1 Tablet(s) Oral QAM every morning 01/09/20 24 048 Active REFILL REQUEST FOR CYCLE THAT BEGINS 01/30, THANK YOU! risperidone 0.5 mg tablet RxNorm: 226419 Take 1 Tablet(s) Oral BID 01/09/20 24 024 Inactive REFILL REQUEST FOR CYCLE THAT BEGINS 01/30, THANK YOU! sertraline 50 mg tablet RxNorm: 340164 TAKE 1 TABLET BY MOUTH ONCE DAILY. TAKE ALONG WITH 100 MG TABLET DAILY FOR A TOTAL DOSE OF 150 MG 01/09/20 24 024 Inactive REFILL REQUEST FOR CYCLE THAT BEGINS 01/30, THANK YOU! risperidone 0.5 mg tablet RxNorm: 119344 Take 1 Tablet(s) Oral BID 01/07/20 24 024 Inactive levofloxacin 500 mg tablet RxNorm: 524265 Take 1 Tablet(s) Oral QD 12/31/19 24 024 Inactive acetaminophen 500 mg tablet RxNorm: 327715 Take 2 Tablet(s) Oral TID 12/31/19 24 024 Inactive levofloxacin 500 mg tablet RxNorm: 993073 Take 1 Tablet(s) Oral QD 12/31/19 24 024 Inactive divalproex ER 250 mg tablet,extended release 24 hr RxNorm: 5040582 TAKE 1 TABLET BY MOUTH AT BEDTIME HAZARDOUS DRUG-DOUBLE GLOVE 10/21/19 24 048 Active CYCLE FILL REFILL REQUEST FOR CYCLE FILL THAT STARTS 11/08/2023. risperidone 1 mg tablet RxNorm: 828107 Take 1 Tablet(s) Oral BID 10/21/19 24 024 Inactive CYCLE FILL REFILL REQUEST FOR CYCLE FILL THAT STARTS 11/08/2023. acetaminophen 500 mg tablet RxNorm: 081424 Take 2 Tablet(s) Oral BID as needed 09/13/19 24 Inactive Tylenol Extra Strength 500 mg tablet RxNorm: 844780 Take 2 Tablet(s) Oral BID as needed 09/13/19 24 024 Inactive trazodone 50 mg tablet RxNorm: 737130 Take 1 Tablet(s) Oral QHS every night at bedtime 09/13/19 24 024 Inactive quetiapine 100 mg tablet RxNorm: 947780 Take 1.5 Tablet(s) Oral HS at bed time 09/13/19 24 024 Inactive Senexon-S 8.6 mg-50 mg tablet RxNorm: 8163005 Take 1 Tablet(s) Oral BID as needed 09/13/19 24 025 Inactive sertraline 100 mg tablet RxNorm: 994771 Take 1.5 Tablet(s) Oral QD 09/13/19 24 024 Inactive Pain Reliever Plus 250 mg-250 mg-65 mg tablet RxNorm: 276560 Take 2 Tablet(s) Oral QD as needed 09/13/19 24 024 Inactive sertraline 100 mg tablet RxNorm: 393661 Take 1 Tablet(s) Oral QD 07/29/19 Inactive Please authorize cycle refill. Thanks. acetaminophen 500 mg tablet RxNorm: 239343 Take 2 Tablet(s) Oral BID as needed 07/20/19 24 024 Inactive acetaminophen 500 mg tablet RxNorm: 867741 Take 2 Tablet(s) Oral BID as needed 07/20/19 24 024 Inactive sertraline 100 mg tablet RxNorm: 524090 Take 1 Tablet(s) Oral QD 07/13/19 24 024 Inactive donepezil 5 mg tablet RxNorm: 552738 TAKE ONE-HALF TABLET (2.5MG) BY MOUTH ONCE DAILY 07/05/20 23 023 Inactive Cycle refill request. Cycle restarts (07/19/23). risperidone 1 mg tablet RxNorm: 009003 Take 1 Tablet(s) Oral HS at bed time 06/25/20 23 024 Inactive trazodone 50 mg tablet RxNorm: 354184 Take 1 Tablet(s) Oral QHS every night at bedtime as needed 06/25/20 024 Inactive quetiapine 25 mg tablet RxNorm: 248004 Take 1 Tablet(s) Oral Q4H every four hours as needed 06/25/20 024 Inactive Senna-S 8.6 mg-50 mg tablet RxNorm: 899175 Take 1 Tablet(s) Oral BID as needed 06/25/20 023 Inactive trazodone 50 mg tablet RxNorm: 108219 Take 1 Tablet(s) Oral QHS every night at bedtime as needed 06/25/20 023 Inactive Senna-S 8.6 mg-50 mg tablet RxNorm: 811637 Take 1 Tablet(s) Oral BID as needed 06/25/20 024 Inactive acetaminophen 500 mg tablet RxNorm: 349446 Take 2 Tablet(s) Oral BID as needed 06/18/20 024 Inactive acetaminophen 500 mg tablet RxNorm: 662345 Take 2 Tablet(s) Oral BID as needed 06/18/20 23 023 Inactive Excedrin Extra Strength 250 mg-250 mg-65 mg tablet RxNorm: 938195 Take 2 Tablet(s) Oral QD as needed 06/18/20 23 023 Inactive Excedrin Extra Strength 250 mg-250 mg-65 mg tablet RxNorm: 660509 Take 2 Tablet(s) Oral QD as needed 06/18/20 024 Inactive risperidone 1 mg tablet RxNorm: 028345 Take 1 Tablet(s) Oral BID 06/04/20 23 023 Inactive quetiapine 25 mg tablet RxNorm: 223001 Take 1 Tablet(s) Oral BID as needed 06/04/20 023 Inactive trazodone 50 mg tablet RxNorm: 639210 Take 1 Tablet(s) Oral QHS every night at bedtime 06/04/20 23 023 Inactive donepezil 10 mg tablet RxNorm: 734148 Take 1 Tablet(s) Oral QD 06/04/20 024 Inactive risperidone 1 mg tablet RxNorm: 633701 Take 1 Tablet(s) Oral BID as needed 06/04/20 023 Inactive Senexon-S 8.6 mg-50 mg tablet RxNorm: 8499670 Take 1 Tablet(s) Oral BID 06/03/20 023 Inactive Please authorize quantity 90 day supply with PRN refills for assisted living patient. Their cycle restarts 06/14/23. Thank you! memantine 5 mg tablet RxNorm: 128470 TAKE ONE-HALF TABLET (2.5MG) BY MOUTH TWICE DAILY 06/03/20 023 Inactive Please authorize quantity 90 day supply with PRN refills for assisted living patient. Their cycle restarts 06/14/23. Thank you! divalproex 125 mg capsule,delayed release sprinkle RxNorm: 3566531 TAKE 4 CAPSULES (500MG) BY MOUTH AT BEDTIME 06/03/20 024 Inactive Please authorize quantity 90 day supply with PRN refills for assisted living patient. Their cycle restarts 06/14/23. Thank you! sertraline 50 mg tablet RxNorm: 433311 Take 1 Tablet(s) Oral QD 06/03/20 024 Inactive Please authorize quantity 90 day supply with PRN refills for assisted living patient. Their cycle restarts 06/14/23. Thank you! naproxen 500 mg tablet RxNorm: 808845 Take 1 Tablet(s) Oral BID 01/23/20 023 Inactive naproxen 500 mg tablet RxNorm: 436498 Take 1 Tablet(s) Oral BID 01/23/20 23 023 Inactive naproxen 500 mg tablet RxNorm: 633201 Take 1 Tablet(s) Oral BID 01/23/20 23 023 Inactive mirtazapine 15 mg tablet RxNorm: 448003 Take 1 Tablet(s) Oral HS at bed time 01/01/20 023 Inactive CYCLE FILL REQUEST FOR CYCLE THAT STARTS 01/04/2023 escitalopram 10 mg tablet RxNorm: 328123 Take 1 Tablet(s) Oral QAM every morning 12/14/19 23 023 Inactive Cycle refill request. Cycle restarts (01/04/23). cholecalciferol (vitamin D3) 50 mcg (2,000 unit) tablet RxNorm: 422854 Take 1 Tablet(s) Oral QAM every morning 12/14/19 23 023 Inactive Cycle refill request. Cycle restarts (01/04/23). melatonin 10 mg sublingual tablet RxNorm: 3878502 TAKE 1 TABLET BY MOUTH AT BEDTIME NOTE DOSAGE/STRENGTH* 12/14/19 23 023 Inactive Cycle refill request. Cycle restarts (01/04/23). rivastigmine 1.5 mg capsule RxNorm: 120656 Take 1 Capsule(s) Oral BID 12/14/19 23 023 Inactive Cycle refill request. Cycle restarts (01/04/23). quetiapine 100 mg tablet RxNorm: 021960 Take 1 Tablet(s) Oral HS at bed time 12/14/19 23 023 Inactive Cycle refill request. Cycle restarts (01/04/23). levothyroxine 50 mcg tablet RxNorm: 139827 TAKE 1 TABLET BY MOUTH ONCE DAILY BEFORE BREAKFAST 12/14/19 23 023 Inactive Cycle refill request. Cycle restarts (01/04/23). amlodipine 5 mg tablet RxNorm: 073690 Take 1 Tablet(s) Oral QAM every morning 12/14/19 23 023 Inactive Cycle refill request. Cycle restarts (01/04/23). buspirone 15 mg tablet RxNorm: 997108 Take 1 Tablet(s) Oral BID 12/14/19 23 023 Inactive Cycle refill request. Cycle restarts (01/04/23). amitriptyline 10 mg tablet RxNorm: 369800 Take 1 Tablet(s) Oral HS at bed time 12/14/19 23 023 Inactive Cycle refill request. Cycle restarts (01/04/23). levofloxacin 500 mg tablet RxNorm: 509067 Take 1 Tablet(s) Oral QD 11/24/19 023 Inactive levofloxacin 500 mg tablet RxNorm: 753705 Take 1 Tablet(s) Oral QD 11/24/19 023 Inactive levothyroxine 50 mcg tablet RxNorm: 788805 Take 1 Tablet(s) Oral QD before Breakfast 11/18/19 023 Inactive amitriptyline 10 mg tablet RxNorm: 105418 Take 1 Tablet(s) Oral QHS every night at bedtime 11/18/19 023 Inactive acetaminophen 500 mg tablet RxNorm: 260699 2 Tablet(s) Oral TID as needed 11/18/19 023 Inactive amlodipine 5 mg tablet RxNorm: 078339 Take 1 Tablet(s) Oral QAM every morning 11/18/19 023 Inactive melatonin 5 mg tablet RxNorm: 530640 Give 1 Tablet(s) Oral QHS every night at bedtime 11/18/19 023 Inactive buspirone 15 mg tablet RxNorm: 130239 Take 1 Tablet(s) Oral BID 11/18/19 023 Inactive Seroquel 25 mg tablet RxNorm: 301711 Take 1 Tablet(s) Oral QHS every night at bedtime 11/18/19 023 Inactive cholecalciferol (vitamin D3) 50 mcg (2,000 unit) tablet RxNorm: 607978 Take 1 Tablet(s) Oral QD 11/18/19 023 Inactive rivastigmine 1.5 mg capsule RxNorm: 105696 Take 2 Capsule(s) Oral BID 11/18/19 023 Inactive mirtazapine 15 mg tablet RxNorm: 599567 Take 1 Tablet(s) Oral QHS every night at bedtime 11/18/19 023 Inactive aspirin-acetaminoph en-caffeine 250 mg-250 mg-65 mg tablet RxNorm: 785100 Take 2 Tablet(s) Oral QD as needed 11/18/19 023 Inactive escitalopram 10 mg tablet RxNorm: 120723 Take 1 Tablet(s) Oral QD 11/18/19 023 Inactive Medication Administered No Medication Administered data Immunizations Vaccine Codes Dose Date Status Influenza CVX: 205 1.0 04/06/2022 Covid-19 ([employer] mR NA, LNP-S, PF, 30 mcg/0.3 mL [...] Date Patient Education: Patient Medication Summary Completed 08/06/2024 Appointment: Aida Sr WPtel: [address] [place], [place] [phone] [place] F/U 12/31/2023 Appointment: Aida Sr WPtel: [address] [place], [place] [phone] [place] F/U 09/17/2023 Appointment: Aida Sr WPtel: [address] [place], [place] [phone] [place] F/U 07/23/2023 Appointment: Aida Sr WPtel: [address] [place], [place] [phone] [place] F/U 06/25/2023 Appointment: Bam Frey: [address] [place], [place] [phone] SDV 01/22/2023 Appointment: Aida Sr WPtel: [address] [place], [place] [phone] NPAWV 11/20/2022 Referral: General Psychiatrist Referral Patient/Family Scheduling Appointment Referral: VIA Orthopedics- I n Home Visits WPtel: [address], [address] [id number] Referral Order Note Incomplete Instructions Comment Date Elderly female residing in [facility] assisted living at [facility]. PMHx: dementia, cluster B personality traits, depression, hypothyroidism, HTN, anxiety, suicidal ideationsPOLST: FULL CODEFred Anatoly-spouse, Amyz: May/DecLisa-therapist: weekly calls usually on :1 visits 3 times weekly 01/28/2024
--- OUTSIDE RECORDS SUMMARY | 2024-09-10 16:30 | XMS_ITS | CCD ---
Author Name Aida Sr CNP Address [address] [facility] [address] [address] [place] [address] Phone Organization [facility] Phone Care Team Providers Care Director Industrial Relations Name Role Phone Aida Sr CNP Primary Care Provider Unavaila ble Aida Sr CNP Chronic Care Management Unavai lable Summary Purpose DataExchange Insurance Providers Payer name Policy type / Coverage type Covered constitution party ID Effective Begin Date Effective End Date [employer] Commercial Insurance [id number] Unknown Family History Family History data not found Allergies, Adverse Reactions, Alerts Substance Reaction Codes Entered Date Inactivated Date Status Sulfa Unknown 11/14/2022 No Inactive Date Ac tive Problems Condition Codes Effective Dates Condition St atus Insomnia ICD-10: G47.00 ICD-9: 780.52 12/10/2023 Active Spider bite wound ICD-10: T63.301A ICD-9: 989.5 12/10/2023 Active Cluster A personality disord er in [...] Hypothyroid ICD-10: E03.9 ICD-9: 244.9 06/25/2023 Active Anxiety ICD-10: F41.9 ICD-9: 300.00 [...] 250 mg tablet,extended release 24 hr RxNorm: 1611828 TAKE 1 TABLET BY MOUTH AT BEDTIME HAZARDOUS DRUG-DOUBLE GLOVE 10/21/19 24 048 Active CYCLE FILL REFILL REQUEST FOR CYCLE FILL THAT STARTS 11/08/2023. risperidone 1 mg tablet RxNorm: 573414 Take 1 Tablet(s) Oral BID 10/21/19 24 024 Inactive CYCLE FILL REFILL REQUEST FOR CYCLE FILL THAT STARTS 11/08/2023. Tylenol Extra Strength 500 mg tablet RxNorm: 053847 Take 2 Tablet(s) Oral BID as needed 09/13/19 24 024 Inactive trazodone 50 mg tablet RxNorm: 108231 Take 1 Tablet(s) Oral QHS every night at bedtime 09/13/19 24 024 Inactive Senexon-S 8.6 mg-50 mg tablet RxNorm: 9095244 Take 1 Tablet(s) Oral BID as needed 09/13/19 24 025 Inactive sertraline 100 mg tablet RxNorm: 634612 Take 1.5 Tablet(s) Oral QD 09/13/19 24 Inactive Pain Reliever Plus 250 mg-250 mg-65 mg tablet RxNorm: 222497 Take 2 Tablet(s) Oral QD as needed 09/13/19 24 Inactive acetaminophen 500 mg tablet RxNorm: 748544 Take 2 Tablet(s) Oral BID as needed 09/13/19 24 024 Inactive quetiapine 100 mg tablet RxNorm: 528620 Take 1.5 Tablet(s) Oral HS at bed time 09/13/19 24 024 Inactive sertraline 100 mg tablet RxNorm: 283894 Take 1 Tablet(s) Oral QD 07/29/19 24 024 Inactive Please authorize cycle refill. Thanks. acetaminophen 500 mg tablet RxNorm: 271318 Take 2 Tablet(s) Oral BID as needed 07/20/19 24 Inactive acetaminophen 500 mg tablet RxNorm: 661038 Take 2 Tablet(s) Oral BID as needed 07/20/19 24 024 Inactive sertraline 100 mg tablet RxNorm: 886831 Take 1 Tablet(s) Oral QD 07/13/19 24 024 Inactive donepezil 5 mg tablet RxNorm: 382820 TAKE ONE-HALF TABLET (2.5MG) BY MOUTH ONCE DAILY 07/05/20 23 023 Inactive Cycle refill request. Cycle restarts (07/19/23). risperidone 1 mg tablet RxNorm: 635068 Take 1 Tablet(s) Oral HS at bed time 06/25/20 024 Inactive trazodone 50 mg tablet RxNorm: 387140 Take 1 Tablet(s) Oral QHS every night at bedtime as needed 06/25/20 23 024 Inactive quetiapine 25 mg tablet RxNorm: 415301 Take 1 Tablet(s) Oral Q4H every four hours as needed 06/25/20 23 024 Inactive Senna-S 8.6 mg-50 mg tablet RxNorm: 639376 Take 1 Tablet(s) Oral BID as needed 06/25/20 023 Inactive trazodone 50 mg tablet RxNorm: 520026 Take 1 Tablet(s) Oral QHS every night at bedtime as needed 06/25/20 023 Inactive Senna-S 8.6 mg-50 mg tablet RxNorm: 033219 Take 1 Tablet(s) Oral BID as needed 06/25/20 024 Inactive acetaminophen 500 mg tablet RxNorm: 656261 Take 2 Tablet(s) Oral BID as needed 06/18/20 024 Inactive acetaminophen 500 mg tablet RxNorm: 923697 Take 2 Tablet(s) Oral BID as needed 06/18/20 023 Inactive Excedrin Extra Strength 250 mg-250 mg-65 mg tablet RxNorm: 383786 Take 2 Tablet(s) Oral QD as needed 06/18/20 023 Inactive Excedrin Extra Strength 250 mg-250 mg-65 mg tablet RxNorm: 398094 Take 2 Tablet(s) Oral QD as needed 06/18/20 024 Inactive risperidone 1 mg tablet RxNorm: 441972 Take 1 Tablet(s) Oral BID 06/04/20 023 Inactive quetiapine 25 mg tablet RxNorm: 948838 Take 1 Tablet(s) Oral BID as needed 06/04/20 023 Inactive trazodone 50 mg tablet RxNorm: 039785 Take 1 Tablet(s) Oral QHS every night at bedtime 06/04/20 023 Inactive donepezil 10 mg tablet RxNorm: 437647 Take 1 Tablet(s) Oral QD 06/04/20 024 Inactive risperidone 1 mg tablet RxNorm: 498929 Take 1 Tablet(s) Oral BID as needed 06/04/20 023 Inactive Senexon-S 8.6 mg-50 mg tablet RxNorm: 5227680 Take 1 Tablet(s) Oral BID 06/03/20 023 Inactive Please authorize quantity 90 day supply with PRN refills for assisted living patient. Their cycle restarts 06/14/23. Thank you! memantine 5 mg tablet RxNorm: 452695 TAKE ONE-HALF TABLET (2.5MG) BY MOUTH TWICE DAILY 06/03/20 023 Inactive Please authorize quantity 90 day supply with PRN refills for assisted living patient. Their cycle restarts 06/14/23. Thank you! divalproex 125 mg capsule,delayed release sprinkle RxNorm: 3533058 TAKE 4 CAPSULES (500MG) BY MOUTH AT BEDTIME 06/03/20 024 Inactive Please authorize quantity 90 day supply with PRN refills for assisted living patient. Their cycle restarts 06/14/23. Thank you! sertraline 50 mg tablet RxNorm: 265151 Take 1 Tablet(s) Oral QD 06/03/20 024 Inactive Please authorize quantity 90 day supply with PRN refills for assisted living patient. Their cycle restarts 06/14/23. Thank you! naproxen 500 mg tablet RxNorm: 229319 Take 1 Tablet(s) Oral BID 01/23/20 23 023 Inactive naproxen 500 mg tablet RxNorm: 961920 Take 1 Tablet(s) Oral BID 01/23/20 23 023 Inactive naproxen 500 mg tablet RxNorm: 280795 Take 1 Tablet(s) Oral BID 01/23/20 23 023 Inactive mirtazapine 15 mg tablet RxNorm: 583580 Take 1 Tablet(s) Oral HS at bed time 01/01/20 23 023 Inactive CYCLE FILL REQUEST FOR CYCLE THAT STARTS 01/04/2023 escitalopram 10 mg tablet RxNorm: 117323 Take 1 Tablet(s) Oral QAM every morning 12/14/19 23 023 Inactive Cycle refill request. Cycle restarts (01/04/23). cholecalciferol (vitamin D3) 50 mcg (2,000 unit) tablet RxNorm: 360050 Take 1 Tablet(s) Oral QAM every morning 12/14/19 23 023 Inactive Cycle refill request. Cycle restarts (01/04/23). melatonin 10 mg sublingual tablet RxNorm: 4593370 TAKE 1 TABLET BY MOUTH AT BEDTIME NOTE DOSAGE/STRENGTH* 12/14/19 23 023 Inactive Cycle refill request. Cycle restarts (01/04/23). rivastigmine 1.5 mg capsule RxNorm: 830345 Take 1 Capsule(s) Oral BID 12/14/19 23 023 Inactive Cycle refill request. Cycle restarts (01/04/23). quetiapine 100 mg tablet RxNorm: 719791 Take 1 Tablet(s) Oral HS at bed time 12/14/19 23 023 Inactive Cycle refill request. Cycle restarts (01/04/23). levothyroxine 50 mcg tablet RxNorm: 188767 TAKE 1 TABLET BY MOUTH ONCE DAILY BEFORE BREAKFAST 12/14/19 23 023 Inactive Cycle refill request. Cycle restarts (01/04/23). amlodipine 5 mg tablet RxNorm: 116716 Take 1 Tablet(s) Oral QAM every morning 12/14/19 23 023 Inactive Cycle refill request. Cycle restarts (01/04/23). buspirone 15 mg tablet RxNorm: 373727 Take 1 Tablet(s) Oral BID 12/14/19 23 023 Inactive Cycle refill request. Cycle restarts (01/04/23). amitriptyline 10 mg tablet RxNorm: 253800 Take 1 Tablet(s) Oral HS at bed time 12/14/19 23 023 Inactive Cycle refill request. Cycle restarts (01/04/23). levofloxacin 500 mg tablet RxNorm: 392129 Take 1 Tablet(s) Oral QD 11/24/19 23 023 Inactive levofloxacin 500 mg tablet RxNorm: 175062 Take 1 Tablet(s) Oral QD 11/24/19 23 023 Inactive levothyroxine 50 mcg tablet RxNorm: 839557 Take 1 Tablet(s) Oral QD before Breakfast 11/18/19 23 023 Inactive amitriptyline 10 mg tablet RxNorm: 505893 Take 1 Tablet(s) Oral QHS every night at bedtime 11/18/19 23 023 Inactive acetaminophen 500 mg tablet RxNorm: 867424 2 Tablet(s) Oral TID as needed 11/18/19 023 Inactive amlodipine 5 mg tablet RxNorm: 066709 Take 1 Tablet(s) Oral QAM every morning 11/18/19 023 Inactive melatonin 5 mg tablet RxNorm: 967016 Give 1 Tablet(s) Oral QHS every night at bedtime 11/18/19 023 Inactive buspirone 15 mg tablet RxNorm: 860933 Take 1 Tablet(s) Oral BID 11/18/19 023 Inactive Seroquel 25 mg tablet RxNorm: 561460 Take 1 Tablet(s) Oral QHS every night at bedtime 11/18/19 023 Inactive cholecalciferol (vitamin D3) 50 mcg (2,000 unit) tablet RxNorm: 572016 Take 1 Tablet(s) Oral QD 11/18/19 023 Inactive rivastigmine 1.5 mg capsule RxNorm: 602370 Take 2 Capsule(s) Oral BID 11/18/19 023 Inactive mirtazapine 15 mg tablet RxNorm: 142710 Take 1 Tablet(s) Oral QHS every night at bedtime 11/18/19 023 Inactive aspirin-acetaminoph en-caffeine 250 mg-250 mg-65 mg tablet RxNorm: 859063 Take 2 Tablet(s) Oral QD as needed 11/18/19 023 Inactive escitalopram 10 mg tablet RxNorm: 739771 Take 1 Tablet(s) Oral QD 11/18/19 023 Inactive Medication Administered No Medication Administered data Immunizations Vaccine Codes Dose Date Status Influenza CVX: 205 1.0 04/06/2022 Covid-19 ([employer] mR NA, LNP-S, PF, 30 mcg/0.3 mL [...] 33 1.0 09/04/2000 Vital Signs Date Vital 12/10/2023 Blood Pressure 1: 142/70 Code: 8480-6 Heart Rate 1: 66 bpm Code: 8867-4 Respiratory Rate: 17 bpm Weight: Code: 3141-9 Reason For Visit No Reason For Visit data Encounters Encounter Performer Location Location Address Codes Date ([address]) Home or Residence Visit Est Pt - Moderate Level, 40 mins Diagnosis: Spider bite wound[ICD10: T63.301A] Diagnosis: Insomnia[ICD10: G47.00] Aida Sr [facility] at [address] [address] CPT-4: 47074 12/10/2023 Plan of Care Planned Activity Notes Codes Status Date Patient Education: Patient Medication Summary Completed 12/10/2023 Patient Education: Influenza Complet ed 12/10/2023 Appointment: Aida Sr WPtel: [address] [place], [place] [phone] [place] F/U 09/17/2023 Appointment: Aida Sr WPtel: [address] [id number] [place] F/U 07/23/2023 Appointment: Aida Sr WPtel: [address] [id number] [place] F/U 06/25/2023 Appointment: Bam Frey: [address] [place] [address] [id number] [place] SDV 01/22/2023 Appointment: Aida Sr WPtel: [address] [place] [address] [id number] [place] NPAWV 11/20/2022 Referral: General Psychiatrist Referral Patient/Family Scheduling Appointment Referral: VIA Orthopedics- I n Home Visits WPtel: [address], [address] [id number] Referral Order Note Incomplete Instructions Comment Date Elderly female residing in [facility] assisted living at [facility]. PMHx: dementia, cluster B personality traits, depression, hypothyroidism, HTN, anxiety, suicidal ideationsPOLST: FULL CODEFred Anatoly-spouse, Ekkk: November/-therapist: weekly calls usually on -1:1 visits 3 times weekly 01/28/2024 Insomnia Will d/c trazdone related to non-use. Monitor for difficulty sleeping, irritation, increased behaviors & daytime tiredness. Spider bite wound 11/26 right cheek red swollen, likely spider bite. Started on augmentin 875mg BID x 5 days, moist warm packs q2h x 48 hours while awake. . 12/10/2023
--- OUTSIDE RECORDS SUMMARY | 2024-09-10 16:31 | XMS_ITS | Clinical Summary ---
Author Organization [facility] Address [address] [place] [address] Care Team Providers Care Crm Marketing Analyst Name Role Phone Aida Sr FIRE PREVENTION SPECIALIST Primary Care Provider [phone] Allergies Active Allergy Reactions Criticality Noted Date Comments Sulfa (Sulfonamide Antibiotics) 09/08 Medications acetaminophen (TYLENOL EXTRA STRGTH) 500 mg tablet Take 1,000 mg by mouth 3 times daily if needed for Pain. Max acetaminophen dose: 4000mg in 24 hrs. Active cholecalciferol, Vitamin D3, (Vitamin D-3) 2,000 unit tablet Take 2,000 units by mouth once daily. Active amLODIPine (NORVASC) 5 mg tabletIndications: Hypertension Take 1 Tablet (5 mg) by mouth once daily. 30 Tablet 05/29/20 23 Active divalproex sprinkles (DEPAKOTE SPRINKLES) 125 mg capsuleIndications :Impulse control disorder Take 4 Capsules (500 mg) by mouth at bedtime. 120 Capsule 05/29/20 23 Active donepeziL (ARICEPT) 5 mg tabletIndications: Major neurocognitive disorder (HC) Take 0.5 Tablets (2.5 mg) by mouth once daily. 30 Tablet 05/30/20 23 Active levothyroxine (SYNTHROID) 50 mcg tabletIndications: Other specified hypothyroidism Take 1 Tablet (50 mcg) by mouth before breakfast. 30 Tablet 05/29/20 23 Active memantine (NAMENDA) 5 mg tabletIndications: Major neurocognitive disorder (HC) Take 0.5 Tablets (2.5 mg) by mouth two times daily. 30 Tablet 05/29/20 Active QUEtiapine (SEROQUEL) 25 mg tabletIndications: Paranoid psychosis (HC) Take 1 Tablet (25 mg) by mouth 2 times daily if needed for Agitation. 60 Tablet 05/29/20 Active risperiDONE (RISPERDAL) 1 mg tabletIndications: Paranoid psychosis (HC) Take 1 Tablet (1 mg) by mouth two times daily. 60 Tablet 05/29/20 Active sertraline (ZOLOFT) 50 mg tabletIndications: Dysthymic disorder,Major depressive disorder, recurrent episode with anxious distress Take 1 Tablet (50 mg) by mouth every morning. 30 Tablet 05/30/20 Active traZODone (DESYREL) 50 mg tabletIndications: Psychophysiologica l insomnia Take 1 Tablet (50 mg) by mouth at bedtime if needed for Sleep. 31 Tablet 05/29/20 Active sennosides-docusat e (SENOKOT S) (8.6-50 mg) tabletIndications: Slow transit constipation Take 1 Tablet by mouth two times daily. 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 Obesity (BMI 30-39.9) 05/21/2023 Cluster B personality disorder 05/21/2023 Suicidal ideation 05/21/2023 Major depressive disorder, r ecurrent episode with anxious distress 05/21/2023 Paranoid psychosis 05/21/2023 Impingement syndrome of shoulder 10/06/2010 Cervicalgia 10/06/2010 Encounters Date Type Department Care Team Description 09/07/2024 11:40 AM CLERICAL PROOFREADER - 09/07/2024 4:21 PM CLERICAL PROOFREADER Emergency [facility] [place] [address] [place] [address] YUMIKO Ramirez [id number] from Last 3 Months Family History Medical History Relation Name Comments Heart Disease Brother Heart Disease Father Relation Name Status Comments Brother Father Social History Tobacco Use Types Packs/Day Years Used Date Smoking Tobacco: Never Smokeless Tobacco: Never Tobacco Cessation:Counseling Given: Not Answered Alcohol Use Standard Drinks/Week Comments Not Currently 0 (1 standard drink = 0.6 oz pur e alcohol) PHQ-2 Answer Date Recorded PHQ-2 TOTAL SCORE 2 05/21/2023 Social Connections Answer Date Recorded Do you often feel lonely or isolated from those around you? 0 05/21/2023 Financial Resource Strain Answer Date R ecorded Difficulty of Paying Living Expenses 3 05/21/2023 Difficulty of Paying Living Expenses Not on file 05/21/2023 Food Insecurity Answer Date Recorded Do you worry your food will run out before you are able to buy more? 1 05/21/2023 Transportation Needs Answer Date Record ed Does lack of transportation keep you from medica l appointments? 2 05/21/2023 Does lack of transportation keep you from work, meetings or getting things that you need? 2 05/21/2023 Housing Stability Answer Date Recorded What is your housing situation today? 1 05/21/2023 Comments Unknown Sex and Gender Information Value Date Recorded Sex Assigned at Not on file Legal Sex Female 6:32 AM CLERICAL PROOFREADER Gender Identity Not on file Sexual Orientation Not on file Obstetrics History Last Filed Vital Signs Vital Sign Reading Time Taken Comments Blood Pressure 147/69 05/30/2023 8:11 AM CLERICAL PROOFREADER Pulse 65 05/30/2023 8:11 AM CLERICAL PROOFREADER Temperature 36.4 C (97.6 F) 05/30/2023 8:11 AM CLERICAL PROOFREADER Respiratory Rate 16 05/30/2023 8:11 AM CLERICAL PROOFREADER Oxygen Saturation 97% 05/30/2023 8:11 AM CLERICAL PROOFREADER Inhaled Oxygen Concentration - - Weight 74.4 kg (164 lb) 05/28/2023 6:37 AM CLERICAL PROOFREADER Height 162.6 cm (5' 4) 05/21/2023 12:42 PM CLERICAL PROOFREADER Body Mass Index 28.15 05/21/2023 12:42 PM CLERICAL PROOFREADER Plan of Treatment Health Maintenance Due Date Last Done Comments Tdap 1947 BMI (ht and wt on same day) for age 18+ 1954 Tetanus booster 1956 Pneumococcal series for age 50+ (1 of 1 - PCV) 1986 Zoster (shingles) series for age 50+ (1 of 2) 1986 DEXA/DXA scan for age 65+ 2001 RSV vaccine for adults or (1 - 1-dose 75+ series) 2011 COVID-19 vaccine series ( season) 2024 02/08/2022, 04/11/2021, 08/31/2020, Additional history exists Influenza for age 65+ 03/09/2024 Depression screening for age 12+ 05/21/2024 05/21/20 23 Insurance * Guarantor: Gertrudis Ledbetter Tray Account Type Relation to Patient Date of Phone Billing Address Personal/Family Self 1935 [id number] [place] [address] MEDICARE ADVANTAGE MR Member Subscriber Plan / Payer (Ef fective 2022-Present) Name:Gertrudis Ledbetter Relation to Subscriber:Self Name:Gertrudis Ledbetter Payer ID:[id number] (NAIC) Type:Not on file Address: [address] [facility] MEDICARE PART A HB ONLY * Guarantor: Gertrudis Ledbetter Tray Account Type Relation to Patient Date of Phone Billing Address Personal/Family Self 1935 [id number] [place] [address] [place] [id number] Advance Directives Documents on File Type Date Recorded Patient Transfer Coordinator Expl anation POLST 11/29/2022 Healthcare Directive 12/18/2017 018 Power of Spiral Gear Generator 06/25/2017 06/25/2017 * Full Code (Latest Code Status on File) Date Activated Date Inactivated Comments 05/22/2023 9:36 AM 05/30/2023 4:46 PM Question Answer Comments Code Status Discussion: Reviewed Preferences * Full Code Date Activated Date Inactivated Comments 05/21/2023 8:02 PM 05/22/2023 9:36 AM Question Answer Comments Code Status Discussion: Unable to Assess Preferences, Provider to review later Care Teams Crm Marketing Analyst Relationship Specialty Start Date End Date Aida Sr NP [address] [place] [phone] PCP - General Nurse Practitioner 05/21/23
--- OUTSIDE RECORDS SUMMARY | 2024-09-10 16:31 | XMS_ITS | CCD ---
Author Name Aida Sr CNP Address [address] [place] [address] Phone Organization [facility] Phone Care Team Providers Care Bakery Decorator Name Role Phone Orin RADHAAida Primary Care Provider Unavaila ble Orin RADHAAida Chronic Care Management Unavai lable Summary Purpose DataExchange Insurance Providers Payer name Policy type / Coverage type Covered alliance party ID Effective Begin Date Effective End Date [employer] Commercial Insurance [id number] Unknown Family history Runs in the family Diagnosis Age At Onset No Known Diseases N/A Social History Social History Element Codes Description Effec tive Dates Marital status Unknown 01/28/2024 Living arrangements Unknown Memory Care 01/28/[address]: 807782732 Never smoker 01/[address]: 310094864 No Alcohol Consum ption 01/28/2024 Sexually Active? [...] Fill Instructions donepezil 5 mg tablet RxNorm: 935803 TAKE ONE-HALF TABLET (2.5MG) BY MOUTH ONCE DAILY 07/20/19 25 049 Active CYCLE FILL REFILL REQUEST FOR CYCLE FILL THAT STARTS 08/14/2024 Senexon-S 8.6 mg-50 mg tablet RxNorm: 3940942 Take 1 Tablet(s) Oral BID as needed 06/30/20 24 028 Active risperidone 1 mg tablet RxNorm: 931923 Take 1 Tablet(s) Oral BID 06/26/20 24 025 Active memantine 5 mg tablet RxNorm: 821565 TAKE ONE-HALF TABLET (2.5MG) BY MOUTH TWICE DAILY 06/23/20 24 049 Active REFILL REQUEST FOR CYCLE THAT BEGINS 07/17, THANK YOU risperidone 0.5 mg tablet RxNorm: 757526 Take 1 Tablet(s) Oral QAM every morning 03/14/20 24 024 Inactive acetaminophen 500 mg tablet RxNorm: 593176 Take 2 Tablet(s) Oral TID as needed 02/22/20 24 No Stop Date Active risperidone 1 mg tablet RxNorm: 395336 Take 1 Tablet(s) Oral HS at bed time 02/22/20 24 024 Inactive acetaminophen 500 mg tablet RxNorm: 232066 Take 2 Tablet(s) Oral TID as needed 02/22/20 24 024 Inactive sertraline 100 mg tablet RxNorm: 947582 Take 1 Tablet(s) Oral QD Take w/ 50mg tablet 01/27/20 24 025 Active sertraline 50 mg tablet RxNorm: 749224 Take 1 Tablet(s) Oral QD Take w/ 100mg tablet 01/27/20 24 025 Active acetaminophen 500 mg tablet RxNorm: 855146 Take 2 Tablet(s) Oral TID as needed 01/27/20 24 024 Inactive amlodipine 5 mg tablet RxNorm: 251650 Take 1 Tablet(s) Oral QAM every morning 01/09/20 24 048 Active REFILL REQUEST FOR CYCLE THAT BEGINS 01/30, THANK YOU! levothyroxine 50 mcg tablet RxNorm: 711887 Take 1 Tablet(s) Oral QD BEFORE BREAKFAST 01/09/20 24 048 Active REFILL REQUEST FOR CYCLE THAT BEGINS 01/30, THANK YOU! cholecalciferol (vitamin D3) 50 mcg (2,000 unit) tablet RxNorm: 749284 Take 1 Tablet(s) Oral QAM every morning 01/09/20 24 048 Active REFILL REQUEST FOR CYCLE THAT BEGINS 01/30, THANK YOU! risperidone 0.5 mg tablet RxNorm: 276963 Take 1 Tablet(s) Oral BID 01/09/20 24 024 Inactive REFILL REQUEST FOR CYCLE THAT BEGINS 01/30, THANK YOU! sertraline 50 mg tablet RxNorm: 576841 TAKE 1 TABLET BY MOUTH ONCE DAILY. TAKE ALONG WITH 100 MG TABLET DAILY FOR A TOTAL DOSE OF 150 MG 01/09/20 24 024 Inactive REFILL REQUEST FOR CYCLE THAT BEGINS 01/30, THANK YOU! risperidone 0.5 mg tablet RxNorm: 828096 Take 1 Tablet(s) Oral BID 01/07/20 24 024 Inactive levofloxacin 500 mg tablet RxNorm: 611900 Take 1 Tablet(s) Oral QD 12/31/19 24 024 Inactive acetaminophen 500 mg tablet RxNorm: 048737 Take 2 Tablet(s) Oral TID 12/31/19 24 024 Inactive levofloxacin 500 mg tablet RxNorm: 732156 Take 1 Tablet(s) Oral QD 12/31/19 24 024 Inactive divalproex ER 250 mg tablet,extended release 24 hr RxNorm: 3939070 TAKE 1 TABLET BY MOUTH AT BEDTIME HAZARDOUS DRUG-DOUBLE GLOVE 10/21/19 24 048 Active CYCLE FILL REFILL REQUEST FOR CYCLE FILL THAT STARTS 11/08/2023. risperidone 1 mg tablet RxNorm: 807080 Take 1 Tablet(s) Oral BID 10/21/19 24 024 Inactive CYCLE FILL REFILL REQUEST FOR CYCLE FILL THAT STARTS 11/08/2023. acetaminophen 500 mg tablet RxNorm: 923641 Take 2 Tablet(s) Oral BID as needed 09/13/19 24 Inactive Tylenol Extra Strength 500 mg tablet RxNorm: 329888 Take 2 Tablet(s) Oral BID as needed 09/13/19 24 024 Inactive trazodone 50 mg tablet RxNorm: 331732 Take 1 Tablet(s) Oral QHS every night at bedtime 09/13/19 24 024 Inactive quetiapine 100 mg tablet RxNorm: 809152 Take 1.5 Tablet(s) Oral HS at bed time 09/13/19 24 024 Inactive Senexon-S 8.6 mg-50 mg tablet RxNorm: 6223890 Take 1 Tablet(s) Oral BID as needed 09/13/19 24 025 Inactive sertraline 100 mg tablet RxNorm: 265544 Take 1.5 Tablet(s) Oral QD 09/13/19 24 024 Inactive Pain Reliever Plus 250 mg-250 mg-65 mg tablet RxNorm: 710862 Take 2 Tablet(s) Oral QD as needed 09/13/19 24 024 Inactive sertraline 100 mg tablet RxNorm: 063173 Take 1 Tablet(s) Oral QD 07/29/19 Inactive Please authorize cycle refill. Thanks. acetaminophen 500 mg tablet RxNorm: 572545 Take 2 Tablet(s) Oral BID as needed 07/20/19 24 024 Inactive acetaminophen 500 mg tablet RxNorm: 303752 Take 2 Tablet(s) Oral BID as needed 07/20/19 24 024 Inactive sertraline 100 mg tablet RxNorm: 132089 Take 1 Tablet(s) Oral QD 07/13/19 24 024 Inactive donepezil 5 mg tablet RxNorm: 649016 TAKE ONE-HALF TABLET (2.5MG) BY MOUTH ONCE DAILY 07/05/20 23 023 Inactive Cycle refill request. Cycle restarts (07/19/23). risperidone 1 mg tablet RxNorm: 708742 Take 1 Tablet(s) Oral HS at bed time 06/25/20 23 024 Inactive trazodone 50 mg tablet RxNorm: 758731 Take 1 Tablet(s) Oral QHS every night at bedtime as needed 06/25/20 024 Inactive quetiapine 25 mg tablet RxNorm: 690672 Take 1 Tablet(s) Oral Q4H every four hours as needed 06/25/20 024 Inactive Senna-S 8.6 mg-50 mg tablet RxNorm: 715945 Take 1 Tablet(s) Oral BID as needed 06/25/20 023 Inactive trazodone 50 mg tablet RxNorm: 304470 Take 1 Tablet(s) Oral QHS every night at bedtime as needed 06/25/20 023 Inactive Senna-S 8.6 mg-50 mg tablet RxNorm: 840742 Take 1 Tablet(s) Oral BID as needed 06/25/20 024 Inactive acetaminophen 500 mg tablet RxNorm: 793507 Take 2 Tablet(s) Oral BID as needed 06/18/20 024 Inactive acetaminophen 500 mg tablet RxNorm: 622196 Take 2 Tablet(s) Oral BID as needed 06/18/20 23 023 Inactive Excedrin Extra Strength 250 mg-250 mg-65 mg tablet RxNorm: 266030 Take 2 Tablet(s) Oral QD as needed 06/18/20 23 023 Inactive Excedrin Extra Strength 250 mg-250 mg-65 mg tablet RxNorm: 125176 Take 2 Tablet(s) Oral QD as needed 06/18/20 024 Inactive risperidone 1 mg tablet RxNorm: 743028 Take 1 Tablet(s) Oral BID 06/04/20 23 023 Inactive quetiapine 25 mg tablet RxNorm: 077520 Take 1 Tablet(s) Oral BID as needed 06/04/20 023 Inactive trazodone 50 mg tablet RxNorm: 161918 Take 1 Tablet(s) Oral QHS every night at bedtime 06/04/20 23 023 Inactive donepezil 10 mg tablet RxNorm: 178068 Take 1 Tablet(s) Oral QD 06/04/20 024 Inactive risperidone 1 mg tablet RxNorm: 642990 Take 1 Tablet(s) Oral BID as needed 06/04/20 023 Inactive Senexon-S 8.6 mg-50 mg tablet RxNorm: 7761626 Take 1 Tablet(s) Oral BID 06/03/20 023 Inactive Please authorize quantity 90 day supply with PRN refills for assisted living patient. Their cycle restarts 06/14/23. Thank you! memantine 5 mg tablet RxNorm: 565016 TAKE ONE-HALF TABLET (2.5MG) BY MOUTH TWICE DAILY 06/03/20 023 Inactive Please authorize quantity 90 day supply with PRN refills for assisted living patient. Their cycle restarts 06/14/23. Thank you! divalproex 125 mg capsule,delayed release sprinkle RxNorm: 4887558 TAKE 4 CAPSULES (500MG) BY MOUTH AT BEDTIME 06/03/20 024 Inactive Please authorize quantity 90 day supply with PRN refills for assisted living patient. Their cycle restarts 06/14/23. Thank you! sertraline 50 mg tablet RxNorm: 849329 Take 1 Tablet(s) Oral QD 06/03/20 024 Inactive Please authorize quantity 90 day supply with PRN refills for assisted living patient. Their cycle restarts 06/14/23. Thank you! naproxen 500 mg tablet RxNorm: 686649 Take 1 Tablet(s) Oral BID 01/23/20 023 Inactive naproxen 500 mg tablet RxNorm: 525726 Take 1 Tablet(s) Oral BID 01/23/20 23 023 Inactive naproxen 500 mg tablet RxNorm: 001716 Take 1 Tablet(s) Oral BID 01/23/20 23 023 Inactive mirtazapine 15 mg tablet RxNorm: 375815 Take 1 Tablet(s) Oral HS at bed time 01/01/20 023 Inactive CYCLE FILL REQUEST FOR CYCLE THAT STARTS 01/04/2023 escitalopram 10 mg tablet RxNorm: 159957 Take 1 Tablet(s) Oral QAM every morning 12/14/19 23 023 Inactive Cycle refill request. Cycle restarts (01/04/23). cholecalciferol (vitamin D3) 50 mcg (2,000 unit) tablet RxNorm: 918781 Take 1 Tablet(s) Oral QAM every morning 12/14/19 23 023 Inactive Cycle refill request. Cycle restarts (01/04/23). melatonin 10 mg sublingual tablet RxNorm: 6660385 TAKE 1 TABLET BY MOUTH AT BEDTIME NOTE DOSAGE/STRENGTH* 12/14/19 23 023 Inactive Cycle refill request. Cycle restarts (01/04/23). rivastigmine 1.5 mg capsule RxNorm: 968309 Take 1 Capsule(s) Oral BID 12/14/19 23 023 Inactive Cycle refill request. Cycle restarts (01/04/23). quetiapine 100 mg tablet RxNorm: 353393 Take 1 Tablet(s) Oral HS at bed time 12/14/19 23 023 Inactive Cycle refill request. Cycle restarts (01/04/23). levothyroxine 50 mcg tablet RxNorm: 846705 TAKE 1 TABLET BY MOUTH ONCE DAILY BEFORE BREAKFAST 12/14/19 23 023 Inactive Cycle refill request. Cycle restarts (01/04/23). amlodipine 5 mg tablet RxNorm: 538334 Take 1 Tablet(s) Oral QAM every morning 12/14/19 23 023 Inactive Cycle refill request. Cycle restarts (01/04/23). buspirone 15 mg tablet RxNorm: 170211 Take 1 Tablet(s) Oral BID 12/14/19 23 023 Inactive Cycle refill request. Cycle restarts (01/04/23). amitriptyline 10 mg tablet RxNorm: 261539 Take 1 Tablet(s) Oral HS at bed time 12/14/19 23 023 Inactive Cycle refill request. Cycle restarts (01/04/23). levofloxacin 500 mg tablet RxNorm: 495216 Take 1 Tablet(s) Oral QD 11/24/19 023 Inactive levofloxacin 500 mg tablet RxNorm: 778617 Take 1 Tablet(s) Oral QD 11/24/19 023 Inactive levothyroxine 50 mcg tablet RxNorm: 825097 Take 1 Tablet(s) Oral QD before Breakfast 11/18/19 023 Inactive amitriptyline 10 mg tablet RxNorm: 718343 Take 1 Tablet(s) Oral QHS every night at bedtime 11/18/19 023 Inactive acetaminophen 500 mg tablet RxNorm: 255293 2 Tablet(s) Oral TID as needed 11/18/19 023 Inactive amlodipine 5 mg tablet RxNorm: 088148 Take 1 Tablet(s) Oral QAM every morning 11/18/19 023 Inactive melatonin 5 mg tablet RxNorm: 669996 Give 1 Tablet(s) Oral QHS every night at bedtime 11/18/19 023 Inactive buspirone 15 mg tablet RxNorm: 631048 Take 1 Tablet(s) Oral BID 11/18/19 023 Inactive Seroquel 25 mg tablet RxNorm: 202991 Take 1 Tablet(s) Oral QHS every night at bedtime 11/18/19 023 Inactive cholecalciferol (vitamin D3) 50 mcg (2,000 unit) tablet RxNorm: 791123 Take 1 Tablet(s) Oral QD 11/18/19 023 Inactive rivastigmine 1.5 mg capsule RxNorm: 731116 Take 2 Capsule(s) Oral BID 11/18/19 023 Inactive mirtazapine 15 mg tablet RxNorm: 179664 Take 1 Tablet(s) Oral QHS every night at bedtime 11/18/19 023 Inactive aspirin-acetaminoph en-caffeine 250 mg-250 mg-65 mg tablet RxNorm: 575851 Take 2 Tablet(s) Oral QD as needed 11/18/19 023 Inactive escitalopram 10 mg tablet RxNorm: 124042 Take 1 Tablet(s) Oral QD 11/18/19 023 Inactive Medication Administered No Medication Administered data Immunizations Vaccine Codes Dose Date Status Influenza CVX: 205 1.0 04/06/2022 Covid-19 (Hail Varsity-MovableInk mR NA, LNP-S, PF, 30 mcg/0.3 mL [...] 33 1.0 09/04/2000 Vital Signs Date Vital 08/04/2024 Blood Pressure 1: 156/74 Code: 8480-6 Blood Pressure 1: 138/69 Code: 8480-6 BMI: NaN Code: 80836-6 Heart Rate 1: 71 bpm Code: 8867-4 Heart Rate 1: 78 bpm Code: 8867-4 Respiratory Rate: 18 bpm Respiratory Rate: 18 bpm Temperature: 36.1 (C) / 97.0 (F) Temperature: 36.6 (C) / 97.9 (F) Weight: 161 lbs 2 oz Code: 3141-9 Weight: 161 lbs Code: 3141-9 Functional Status Functional / Cognitive [...] Encounter Performer Location Location Address Codes Date (57014) Home or Residence Visit Est Pt - Moderate Level, 40 mins Diagnosis: HTN (hypertension)[IC D10: I10] Diagnosis: Dementia[ICD10: F03.90] Diagnosis: Frailty[ICD10: R54] Diagnosis: Insomnia[ICD10: G47.00] Aida Sr [facility] at [address] [address] CPT-4: 94587 08/04/2024 Plan of Care Planned Activity Notes Codes Status Date Patient Education: Patient Medication Summary Completed 08/04/2024 Patient Education: Influenza Complet ed 08/04/2024 Appointment: Aida Sr WPtel: [address] [place], [place] [phone] [place] F/U 12/31/2023 Appointment: Aida Sr WPtel: [address] [place], [place] [phone] [place] F/U 09/17/2023 Appointment: Aida Sr WPtel: [address] [place], [place] [phone] [place] F/U 07/23/2023 Appointment: Aida Sr WPtel: [address] [id number] [place] F/U 06/25/2023 Appointment: Bam Frey: [address] [place] [address] [address] [id number] [place] SDV 01/22/2023 Appointment: Aida Sr WPtel: [address] [place] [address] [id number] NPAWV 11/20/2022 Referral: General Psychiatrist Referral Patient/Family Scheduling Appointment Referral: [facility] WPtel: [address], [address] [id number] Referral Order Note Incomplete Instructions Comment Date Elderly female residing in [facility] assisted [facility] at [facility]. PMHx: dementia, cluster B personality traits, depression, hypothyroidism, HTN, anxiety, suicidal ideationsPOLST: FULL CODEFred Anatoly-spouse, Gqgs: November/DecLisa-therapist: weekly calls usually on -:1 visits 3 times weekly 01/28/2024 Dementia namenda 2.5mg BID, donepezil 2.5mg qd. Follows with psych and [facility]. Remains appropriate for memory care setting, anticipate gradual decline with disease process. Assess monthly the need for increased services/supports. Insomnia depakote 250mg qHS, risperidone 1mg BID. Sleeping well. Monitor for difficulty sleeping, irritation, increased behaviors & daytime tiredness. HTN (hypertension) amlodipine 5mg qd Care plan: Routinely monitor blood pressures to follow trends. Goal is less than 150/90. Watch for side effects to medications and for over treatment, which can cause hypotension. Frailty Due to age, poor cognition and multiple chronic illnesses. . 08/04/2024
--- OUTSIDE RECORDS SUMMARY | 2024-09-10 16:32 | XMS_ITS | CCD ---
Author Name Bam Frey MD Address [address] [place] [address] Phone Organization [facility] Phone Care Team Providers Care Vendor Management Specialist Name Role Phone Orin GARCIA, Aida Primary Care Provider Unavaila ble Orin CHIEF ENGINEER RESEARCH, Aida Chronic Care Management Unavai lable Summary Purpose DataExchange Insurance Providers Payer name Policy type / Coverage type Covered constitution party ID Effective Begin Date Effective End Date [employer] Commercial Insurance [id number] Unknown [id number] Family History Family History data not found [...] Fill Instructions naproxen 500 mg tablet RxNorm: 544016 Take 1 Tablet(s) Oral BID 01/23/20 023 Inactive naproxen 500 mg tablet RxNorm: 103695 Take 1 Tablet(s) Oral BID 01/23/20 023 Inactive naproxen 500 mg tablet RxNorm: 716491 Take 1 Tablet(s) Oral BID 01/23/20 023 Inactive mirtazapine 15 mg tablet RxNorm: 257566 Take 1 Tablet(s) Oral HS at bed time 01/01/20 023 Inactive CYCLE FILL REQUEST FOR CYCLE THAT STARTS 01/04/2023 escitalopram 10 mg tablet RxNorm: 432314 Take 1 Tablet(s) Oral QAM every morning 12/14/19 023 Inactive Cycle refill request. Cycle restarts (01/04/23). melatonin 10 mg sublingual tablet RxNorm: 4700358 TAKE 1 TABLET BY MOUTH AT BEDTIME NOTE DOSAGE/STRENGTH* 12/14/19 023 Inactive Cycle refill request. Cycle restarts (01/04/23). rivastigmine 1.5 mg capsule RxNorm: 600400 Take 1 Capsule(s) Oral BID 12/14/19 023 Inactive Cycle refill request. Cycle restarts (01/04/23). quetiapine 100 mg tablet RxNorm: 509522 Take 1 Tablet(s) Oral HS at bed time 12/14/19 23 023 Inactive Cycle refill request. Cycle restarts (01/04/23). buspirone 15 mg tablet RxNorm: 785524 Take 1 Tablet(s) Oral BID 12/14/19 023 Inactive Cycle refill request. Cycle restarts (01/04/23). amitriptyline 10 mg tablet RxNorm: 251092 Take 1 Tablet(s) Oral HS at bed time 12/14/19 23 023 Inactive Cycle refill request. Cycle restarts (01/04/23). cholecalciferol (vitamin D3) 50 mcg (2,000 unit) tablet RxNorm: 948977 Take 1 Tablet(s) Oral QAM every morning 12/14/19 23 023 Inactive Cycle refill request. Cycle restarts (01/04/23). levothyroxine 50 mcg tablet RxNorm: 411160 TAKE 1 TABLET BY MOUTH ONCE DAILY BEFORE BREAKFAST 12/14/19 23 023 Inactive Cycle refill request. Cycle restarts (01/04/23). amlodipine 5 mg tablet RxNorm: 053225 Take 1 Tablet(s) Oral QAM every morning 12/14/19 23 023 Inactive Cycle refill request. Cycle restarts (01/04/23). levofloxacin 500 mg tablet RxNorm: 253309 Take 1 Tablet(s) Oral QD 11/24/19 23 023 Inactive levofloxacin 500 mg tablet RxNorm: 872463 Take 1 Tablet(s) Oral QD 11/24/19 23 023 Inactive acetaminophen 500 mg tablet RxNorm: 741548 2 Tablet(s) Oral TID as needed 11/18/19 23 023 Inactive Seroquel 25 mg tablet RxNorm: 061049 Take 1 Tablet(s) Oral QHS every night at bedtime 11/18/19 23 023 Inactive aspirin-acetaminoph en-caffeine 250 mg-250 mg-65 mg tablet RxNorm: 892185 Take 2 Tablet(s) Oral QD as needed 11/18/19 23 023 Inactive levothyroxine 50 mcg tablet RxNorm: 284668 Take 1 Tablet(s) Oral QD before Breakfast 11/18/19 23 023 Inactive amitriptyline 10 mg tablet RxNorm: 365080 Take 1 Tablet(s) Oral QHS every night at bedtime 11/18/19 23 023 Inactive amlodipine 5 mg tablet RxNorm: 146688 Take 1 Tablet(s) Oral QAM every morning 11/18/19 023 Inactive melatonin 5 mg tablet RxNorm: 393365 Give 1 Tablet(s) Oral QHS every night at bedtime 11/18/19 023 Inactive buspirone 15 mg tablet RxNorm: 294480 Take 1 Tablet(s) Oral BID 11/18/19 023 Inactive cholecalciferol (vitamin D3) 50 mcg (2,000 unit) tablet RxNorm: 455274 Take 1 Tablet(s) Oral QD 11/18/19 023 Inactive rivastigmine 1.5 mg capsule RxNorm: 364627 Take 2 Capsule(s) Oral BID 11/18/19 023 Inactive mirtazapine 15 mg tablet RxNorm: 257951 Take 1 Tablet(s) Oral QHS every night at bedtime 11/18/19 023 Inactive escitalopram 10 mg tablet RxNorm: 402418 Take 1 Tablet(s) Oral QD 11/18/19 023 Inactive Medication Administered No Medication Administered data Immunizations Vaccine Codes Dose Date Status Influenza CVX: 205 1.0 04/06/2022 Covid-19 ([employer] mR NA, LNP-S, PF, 30 mcg/0.3 mL [...] Encounters Encounter Performer Location Location Address Codes [place] ([id number]) Home or Residence Visit Est Pt - Low Level, 30 mins Diagnosis: Strain of right trapezius muscle, initial encounter[ICD10: S46.811A] Bam Frey [facility] at [address] [address] CPT-4: 14670 01/22/2023 Plan of Care Planned Activity Notes Codes Status Date Patient Education: Patient Medication Summary Completed 01/22/2023 Patient Education: Influenza Vaccine Completed 01/22/2023 Appointment: Aida Sr WPtel: [address] [place], [place] [phone] [facility] Referral: General Psychiatrist Referral Patient/Family Scheduling Appointment Referral: VIA Orthopedics- I n [facility] Visits [facility] [address] [facility] [id number] Referral Order Note Incomplete Instructions Comment Date Elderly female residing in [facility] assisted living at [facility]. PMHx: dementia, cluster B personality traits, depression, hypothyroidism, HTN, anxiety, suicidal ideationsPOLST: FULL CODEFred Anatoly-spouse, Sivj: November/Scotty-therapist: weekly calls usually on -:1 visits 3 times weekly 01/28/2024 Strain of right trapezius mu scle, initial encounter Patient is tender in the area of the right trapezius muscle. Will order physical therapy to evaluate and treat. Will DC warm packs and have patient use ice or cold packs 10 minutes tid to right upper back/shoulder area. Naproxen 500 mg po bid scheduled x 10 days. . 01/22/2023
--- OUTSIDE RECORDS SUMMARY | 2024-09-10 16:32 | XMS_ITS | CCD ---
Author Name Aida Sr CNP Address [address] [facility] [address] [place] [address] Phone Organization [facility] Phone Care Team Providers Care Head Of History Name Role Phone Aida Sr CNP Primary Care Provider Unavaila ble Orin TRIMMING DEPARTMENT BLOCKERAida Chronic Care Management Unavai lable Summary Purpose DataExchange Insurance Providers Payer name Policy type / Coverage type Covered alliance party ID Effective Begin Date Effective End Date [employer] Commercial Insurance [id number] Unknown Family History Family History data not [...] Fill Instructions sertraline 100 mg tablet RxNorm: 600296 Take 1 Tablet(s) Oral QD 07/29/19 024 Inactive Please authorize cycle refill. Thanks. acetaminophen 500 mg tablet RxNorm: 571450 Take 2 Tablet(s) Oral BID as needed 07/20/19 24 Inactive acetaminophen 500 mg tablet RxNorm: 001822 Take 2 Tablet(s) Oral BID as needed 07/20/19 24 Inactive sertraline 100 mg tablet RxNorm: 056900 Take 1 Tablet(s) Oral QD 07/13/19 24 024 Inactive donepezil 5 mg tablet RxNorm: 243966 TAKE ONE-HALF TABLET (2.5MG) BY MOUTH ONCE DAILY 07/05/20 023 Inactive Cycle refill request. Cycle restarts (07/19/23). risperidone 1 mg tablet RxNorm: 590913 Take 1 Tablet(s) Oral HS at bed time 06/25/20 024 Inactive quetiapine 25 mg tablet RxNorm: 874921 Take 1 Tablet(s) Oral Q4H every four hours as needed 06/25/20 024 Inactive trazodone 50 mg tablet RxNorm: 429736 Take 1 Tablet(s) Oral QHS every night at bedtime as needed 06/25/20 024 Inactive Senna-S 8.6 mg-50 mg tablet RxNorm: 476293 Take 1 Tablet(s) Oral BID as needed 06/25/20 23 023 Inactive trazodone 50 mg tablet RxNorm: 621220 Take 1 Tablet(s) Oral QHS every night at bedtime as needed 06/25/20 023 Inactive Senna-S 8.6 mg-50 mg tablet RxNorm: 139394 Take 1 Tablet(s) Oral BID as needed 06/25/20 024 Inactive acetaminophen 500 mg tablet RxNorm: 083849 Take 2 Tablet(s) Oral BID as needed 06/18/20 23 024 Inactive acetaminophen 500 mg tablet RxNorm: 776913 Take 2 Tablet(s) Oral BID as needed 06/18/20 23 023 Inactive Excedrin Extra Strength 250 mg-250 mg-65 mg tablet RxNorm: 244528 Take 2 Tablet(s) Oral QD as needed 06/18/20 23 023 Inactive Excedrin Extra Strength 250 mg-250 mg-65 mg tablet RxNorm: 528656 Take 2 Tablet(s) Oral QD as needed 06/18/20 024 Inactive donepezil 10 mg tablet RxNorm: 614383 Take 1 Tablet(s) Oral QD 06/04/20 024 Inactive risperidone 1 mg tablet RxNorm: 613408 Take 1 Tablet(s) Oral BID 06/04/20 023 Inactive quetiapine 25 mg tablet RxNorm: 969783 Take 1 Tablet(s) Oral BID as needed 06/04/20 023 Inactive trazodone 50 mg tablet RxNorm: 682813 Take 1 Tablet(s) Oral QHS every night at bedtime 06/04/20 023 Inactive risperidone 1 mg tablet RxNorm: 255491 Take 1 Tablet(s) Oral BID as needed 06/04/20 023 Inactive divalproex 125 mg capsule,delayed release sprinkle RxNorm: 6622615 TAKE 4 CAPSULES (500MG) BY MOUTH AT BEDTIME 06/03/20 024 Inactive Please authorize quantity 90 day supply with PRN refills for assisted living patient. Their cycle restarts 06/14/23. Thank you! Senexon-S 8.6 mg-50 mg tablet RxNorm: 4678560 Take 1 Tablet(s) Oral BID 06/03/20 023 Inactive Please authorize quantity 90 day supply with PRN refills for assisted living patient. Their cycle restarts 06/14/23. Thank you! memantine 5 mg tablet RxNorm: 221516 TAKE ONE-HALF TABLET (2.5MG) BY MOUTH TWICE DAILY 06/03/20 023 Inactive Please authorize quantity 90 day supply with PRN refills for assisted living patient. Their cycle restarts 06/14/23. Thank you! sertraline 50 mg tablet RxNorm: 212441 Take 1 Tablet(s) Oral QD 06/03/20 024 Inactive Please authorize quantity 90 day supply with PRN refills for assisted living patient. Their cycle restarts 06/14/23. Thank you! naproxen 500 mg tablet RxNorm: 354679 Take 1 Tablet(s) Oral BID 01/23/20 23 023 Inactive naproxen 500 mg tablet RxNorm: 729039 Take 1 Tablet(s) Oral BID 01/23/20 23 023 Inactive naproxen 500 mg tablet RxNorm: 084884 Take 1 Tablet(s) Oral BID 01/23/20 23 023 Inactive mirtazapine 15 mg tablet RxNorm: 986300 Take 1 Tablet(s) Oral HS at bed time 01/01/20 23 023 Inactive CYCLE FILL REQUEST FOR CYCLE THAT STARTS 01/04/2023 escitalopram 10 mg tablet RxNorm: 802010 Take 1 Tablet(s) Oral QAM every morning 12/14/19 23 023 Inactive Cycle refill request. Cycle restarts (01/04/23). cholecalciferol (vitamin D3) 50 mcg (2,000 unit) tablet RxNorm: 279171 Take 1 Tablet(s) Oral QAM every morning 12/14/19 23 023 Inactive Cycle refill request. Cycle restarts (01/04/23). melatonin 10 mg sublingual tablet RxNorm: 3535776 TAKE 1 TABLET BY MOUTH AT BEDTIME NOTE DOSAGE/STRENGTH* 12/14/19 023 Inactive Cycle refill request. Cycle restarts (01/04/23). rivastigmine 1.5 mg capsule RxNorm: 162173 Take 1 Capsule(s) Oral BID 12/14/19 23 023 Inactive Cycle refill request. Cycle restarts (01/04/23). quetiapine 100 mg tablet RxNorm: 737476 Take 1 Tablet(s) Oral HS at bed time 12/14/19 23 023 Inactive Cycle refill request. Cycle restarts (01/04/23). levothyroxine 50 mcg tablet RxNorm: 771334 TAKE 1 TABLET BY MOUTH ONCE DAILY BEFORE BREAKFAST 12/14/19 23 023 Inactive Cycle refill request. Cycle restarts (01/04/23). amlodipine 5 mg tablet RxNorm: 267687 Take 1 Tablet(s) Oral QAM every morning 12/14/19 23 023 Inactive Cycle refill request. Cycle restarts (01/04/23). buspirone 15 mg tablet RxNorm: 026657 Take 1 Tablet(s) Oral BID 12/14/19 23 023 Inactive Cycle refill request. Cycle restarts (01/04/23). amitriptyline 10 mg tablet RxNorm: 252834 Take 1 Tablet(s) Oral HS at bed time 12/14/19 23 023 Inactive Cycle refill request. Cycle restarts (01/04/23). levofloxacin 500 mg tablet RxNorm: 427264 Take 1 Tablet(s) Oral QD 11/24/19 23 023 Inactive levofloxacin 500 mg tablet RxNorm: 682981 Take 1 Tablet(s) Oral QD 11/24/19 23 023 Inactive levothyroxine 50 mcg tablet RxNorm: 819415 Take 1 Tablet(s) Oral QD before Breakfast 11/18/19 23 023 Inactive amitriptyline 10 mg tablet RxNorm: 860676 Take 1 Tablet(s) Oral QHS every night at bedtime 11/18/19 023 Inactive acetaminophen 500 mg tablet RxNorm: 979445 2 Tablet(s) Oral TID as needed 11/18/19 23 023 Inactive amlodipine 5 mg tablet RxNorm: 065815 Take 1 Tablet(s) Oral QAM every morning 11/18/19 023 Inactive melatonin 5 mg tablet RxNorm: 245599 Give 1 Tablet(s) Oral QHS every night at bedtime 11/18/19 023 Inactive buspirone 15 mg tablet RxNorm: 107979 Take 1 Tablet(s) Oral BID 11/18/19 023 Inactive Seroquel 25 mg tablet RxNorm: 109975 Take 1 Tablet(s) Oral QHS every night at bedtime 11/18/19 023 Inactive cholecalciferol (vitamin D3) 50 mcg (2,000 unit) tablet RxNorm: 023389 Take 1 Tablet(s) Oral QD 11/18/19 023 Inactive rivastigmine 1.5 mg capsule RxNorm: 956893 Take 2 Capsule(s) Oral BID 11/18/19 023 Inactive mirtazapine 15 mg tablet RxNorm: 550244 Take 1 Tablet(s) Oral QHS every night at bedtime 11/18/19 023 Inactive aspirin-acetaminoph en-caffeine 250 mg-250 mg-65 mg tablet RxNorm: 859239 Take 2 Tablet(s) Oral QD as needed 11/18/19 023 Inactive escitalopram 10 mg tablet RxNorm: 738531 Take 1 Tablet(s) Oral QD 11/18/19 023 Inactive Medication Administered No Medication Administered data Immunizations Vaccine Codes Dose Date Status Influenza CVX: 205 1.0 04/06/2022 Covid-19 ([employer] mR NA, LNP-S, PF, 30 mcg/0.3 mL [...] Date Patient Education: Patient Medication Summary Completed 08/08/2023 Appointment: Aida Sr WPtel: [address] [place], [place] [phone] [place] F/U 07/23/2023 Appointment: Aida Sr WPtel: [address] [place], [place] [phone] [place] F/U 06/25/2023 Appointment: Bam Frey: [address] [place], [place] [phone] [place] SDV 01/22/2023 Appointment: Aida Sr WPtel: [address] [place] [address] [address] [id number] 11/20/2022 Referral: General Psychiatrist Referral Patient/Family Scheduling Appointment Referral: VIA Orthopedics- I n Home Visits WPtel: [address] [id number] Referral Order Note Incomplete Instructions Comment Date Elderly female residing in [facility] assisted living at [facility]. PMHx: dementia, cluster B personality traits, depression, hypothyroidism, HTN, anxiety, suicidal ideationsPOLST: FULL CODEFred Anatoly-spouse, Rgcz: -therapist: weekly calls usually on :1 visits 3 times weekly 01/28/2024
--- OUTSIDE RECORDS SUMMARY | 2024-09-10 16:32 | XMS_ITS | CCD ---
Author Name Aida Sr CNP Address [address] [facility] [address] [facility] [address] [place] [address] Phone Organization [facility] Phone Care Team Providers Care Philosophy And Religion Instructor Name Role Phone Orin RADHAAida Primary Care Provider Unavaila ble Orin RADHAAida Chronic Care Management Unavai lable Summary Purpose DataExchange Insurance Providers Payer name Policy type / Coverage type Covered republican ID Effective Begin Date Effective End Date [place] [employer] [id number] Unknown Family history Runs in the family Diagnosis Age At Onset No Known Diseases N/A Social History Social History Element Codes Description Effec tive Dates Marital status Unknown 01/28/2024 Living arrangements Unknown Memory Care 01/28/[address]: 003398472 Never smoker 01/[address]: 361661518 No Alcohol Consum ption 01/28/2024 Sexually Active? 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 ICD-9: 296.34 04/07/2024 Active Insomnia ICD-10: G47.00 ICD-9: 780.52 04/07/2024 Active HTN (hypertension) ICD-10: I10 ICD-9: 401.9 02/25/2024 Active Advance care planning ICD-10: Z71.89 [...] Fill Instructions risperidone 0.5 mg tablet RxNorm: 401808 Take 1 Tablet(s) Oral QAM every morning 03/14/20 24 024 Inactive risperidone 1 mg tablet RxNorm: 195930 Take 1 Tablet(s) Oral HS at bed time 02/22/20 24 024 Inactive acetaminophen 500 mg tablet RxNorm: 842406 Take 2 Tablet(s) Oral TID as needed 02/22/20 24 No Stop Date Active acetaminophen 500 mg tablet RxNorm: 716748 Take 2 Tablet(s) Oral TID as needed 02/22/20 24 024 Inactive sertraline 100 mg tablet RxNorm: 756045 Take 1 Tablet(s) Oral QD Take w/ 50mg tablet 01/27/20 24 025 Active sertraline 50 mg tablet RxNorm: 498718 Take 1 Tablet(s) Oral QD Take w/ 100mg tablet 01/27/20 24 025 Active acetaminophen 500 mg tablet RxNorm: 604007 Take 2 Tablet(s) Oral TID as needed 01/27/20 24 024 Inactive amlodipine 5 mg tablet RxNorm: 288364 Take 1 Tablet(s) Oral QAM every morning 01/09/20 24 048 Active REFILL REQUEST FOR CYCLE THAT BEGINS 01/30, THANK YOU! levothyroxine 50 mcg tablet RxNorm: 704024 Take 1 Tablet(s) Oral QD BEFORE BREAKFAST 01/09/20 24 048 Active REFILL REQUEST FOR CYCLE THAT BEGINS 01/30, THANK YOU! cholecalciferol (vitamin D3) 50 mcg (2,000 unit) tablet RxNorm: 690800 Take 1 Tablet(s) Oral QAM every morning 01/09/20 24 048 Active REFILL REQUEST FOR CYCLE THAT BEGINS 01/30, THANK YOU! risperidone 0.5 mg tablet RxNorm: 397127 Take 1 Tablet(s) Oral BID 01/09/20 24 024 Inactive REFILL REQUEST FOR CYCLE THAT BEGINS 01/30, THANK YOU! sertraline 50 mg tablet RxNorm: 824342 TAKE 1 TABLET BY MOUTH ONCE DAILY. TAKE ALONG WITH 100 MG TABLET DAILY FOR A TOTAL DOSE OF 150 MG 01/09/20 24 024 Inactive REFILL REQUEST FOR CYCLE THAT BEGINS 01/30, THANK YOU! risperidone 0.5 mg tablet RxNorm: 693066 Take 1 Tablet(s) Oral BID 01/07/20 24 024 Inactive levofloxacin 500 mg tablet RxNorm: 975733 Take 1 Tablet(s) Oral QD 12/31/19 24 024 Inactive acetaminophen 500 mg tablet RxNorm: 676372 Take 2 Tablet(s) Oral TID 12/31/19 24 024 Inactive levofloxacin 500 mg tablet RxNorm: 057500 Take 1 Tablet(s) Oral QD 12/31/19 24 024 Inactive divalproex ER 250 mg tablet,extended release 24 hr RxNorm: 9554947 TAKE 1 TABLET BY MOUTH AT BEDTIME HAZARDOUS DRUG-DOUBLE GLOVE 10/21/19 24 048 Active CYCLE FILL REFILL REQUEST FOR CYCLE FILL THAT STARTS 11/08/2023. risperidone 1 mg tablet RxNorm: 765443 Take 1 Tablet(s) Oral BID 10/21/19 24 024 Inactive CYCLE FILL REFILL REQUEST FOR CYCLE FILL THAT STARTS 11/08/2023. Senexon-S 8.6 mg-50 mg tablet RxNorm: 0568157 Take 1 Tablet(s) Oral BID as needed 09/13/19 24 025 Inactive acetaminophen 500 mg tablet RxNorm: 277587 Take 2 Tablet(s) Oral BID as needed 09/13/19 24 024 Inactive Tylenol Extra Strength 500 mg tablet RxNorm: 294054 Take 2 Tablet(s) Oral BID as needed 09/13/19 24 024 Inactive trazodone 50 mg tablet RxNorm: 680226 Take 1 Tablet(s) Oral QHS every night at bedtime 09/13/19 24 024 Inactive quetiapine 100 mg tablet RxNorm: 480091 Take 1.5 Tablet(s) Oral HS at bed time 09/13/19 24 024 Inactive sertraline 100 mg tablet RxNorm: 304062 Take 1.5 Tablet(s) Oral QD 09/13/19 24 024 Inactive Pain Reliever Plus 250 mg-250 mg-65 mg tablet RxNorm: 483347 Take 2 Tablet(s) Oral QD as needed 09/13/19 24 024 Inactive sertraline 100 mg tablet RxNorm: 069379 Take 1 Tablet(s) Oral QD 07/29/19 024 Inactive Please authorize cycle refill. Thanks. acetaminophen 500 mg tablet RxNorm: 206613 Take 2 Tablet(s) Oral BID as needed 07/20/19 Inactive acetaminophen 500 mg tablet RxNorm: 912429 Take 2 Tablet(s) Oral BID as needed 07/20/19 024 Inactive sertraline 100 mg tablet RxNorm: 923246 Take 1 Tablet(s) Oral QD 07/13/19 Inactive donepezil 5 mg tablet RxNorm: 375245 TAKE ONE-HALF TABLET (2.5MG) BY MOUTH ONCE DAILY 07/05/20 023 Inactive Cycle refill request. Cycle restarts (07/19/23). risperidone 1 mg tablet RxNorm: 149419 Take 1 Tablet(s) Oral HS at bed time 06/25/20 024 Inactive trazodone 50 mg tablet RxNorm: 440471 Take 1 Tablet(s) Oral QHS every night at bedtime as needed 06/25/20 024 Inactive quetiapine 25 mg tablet RxNorm: 343694 Take 1 Tablet(s) Oral Q4H every four hours as needed 06/25/20 23 024 Inactive Senna-S 8.6 mg-50 mg tablet RxNorm: 936251 Take 1 Tablet(s) Oral BID as needed 06/25/20 23 023 Inactive trazodone 50 mg tablet RxNorm: 377362 Take 1 Tablet(s) Oral QHS every night at bedtime as needed 06/25/20 23 023 Inactive Senna-S 8.6 mg-50 mg tablet RxNorm: 486729 Take 1 Tablet(s) Oral BID as needed 06/25/20 23 024 Inactive acetaminophen 500 mg tablet RxNorm: 591947 Take 2 Tablet(s) Oral BID as needed 06/18/20 23 024 Inactive acetaminophen 500 mg tablet RxNorm: 788764 Take 2 Tablet(s) Oral BID as needed 06/18/20 023 Inactive Excedrin Extra Strength 250 mg-250 mg-65 mg tablet RxNorm: 475271 Take 2 Tablet(s) Oral QD as needed 06/18/20 023 Inactive Excedrin Extra Strength 250 mg-250 mg-65 mg tablet RxNorm: 457982 Take 2 Tablet(s) Oral QD as needed 06/18/20 024 Inactive risperidone 1 mg tablet RxNorm: 725522 Take 1 Tablet(s) Oral BID 06/04/20 023 Inactive quetiapine 25 mg tablet RxNorm: 790658 Take 1 Tablet(s) Oral BID as needed 06/04/20 023 Inactive trazodone 50 mg tablet RxNorm: 805926 Take 1 Tablet(s) Oral QHS every night at bedtime 06/04/20 023 Inactive donepezil 10 mg tablet RxNorm: 113091 Take 1 Tablet(s) Oral QD 06/04/20 024 Inactive risperidone 1 mg tablet RxNorm: 325667 Take 1 Tablet(s) Oral BID as needed 06/04/20 023 Inactive Senexon-S 8.6 mg-50 mg tablet RxNorm: 9681967 Take 1 Tablet(s) Oral BID 06/03/20 023 Inactive Please authorize quantity 90 day supply with PRN refills for assisted living patient. Their cycle restarts 06/14/23. Thank you! memantine 5 mg tablet RxNorm: 837305 TAKE ONE-HALF TABLET (2.5MG) BY MOUTH TWICE DAILY 06/03/20 023 Inactive Please authorize quantity 90 day supply with PRN refills for assisted living patient. Their cycle restarts 06/14/23. Thank you! divalproex 125 mg capsule,delayed release sprinkle RxNorm: 3492645 TAKE 4 CAPSULES (500MG) BY MOUTH AT BEDTIME 06/03/20 024 Inactive Please authorize quantity 90 day supply with PRN refills for assisted living patient. Their cycle restarts 06/14/23. Thank you! sertraline 50 mg tablet RxNorm: 346808 Take 1 Tablet(s) Oral QD 06/03/20 23 024 Inactive Please authorize quantity 90 day supply with PRN refills for assisted living patient. Their cycle restarts 06/14/23. Thank you! naproxen 500 mg tablet RxNorm: 493583 Take 1 Tablet(s) Oral BID 01/23/20 23 023 Inactive naproxen 500 mg tablet RxNorm: 469443 Take 1 Tablet(s) Oral BID 01/23/20 023 Inactive naproxen 500 mg tablet RxNorm: 839787 Take 1 Tablet(s) Oral BID 01/23/20 023 Inactive mirtazapine 15 mg tablet RxNorm: 803669 Take 1 Tablet(s) Oral HS at bed time 01/01/20 023 Inactive CYCLE FILL REQUEST FOR CYCLE THAT STARTS 01/04/2023 escitalopram 10 mg tablet RxNorm: 242594 Take 1 Tablet(s) Oral QAM every morning 12/14/19 023 Inactive Cycle refill request. Cycle restarts (01/04/23). cholecalciferol (vitamin D3) 50 mcg (2,000 unit) tablet RxNorm: 691101 Take 1 Tablet(s) Oral QAM every morning 12/14/19 023 Inactive Cycle refill request. Cycle restarts (01/04/23). melatonin 10 mg sublingual tablet RxNorm: 6069328 TAKE 1 TABLET BY MOUTH AT BEDTIME NOTE DOSAGE/STRENGTH* 12/14/19 023 Inactive Cycle refill request. Cycle restarts (01/04/23). rivastigmine 1.5 mg capsule RxNorm: 150466 Take 1 Capsule(s) Oral BID 12/14/19 023 Inactive Cycle refill request. Cycle restarts (01/04/23). quetiapine 100 mg tablet RxNorm: 048185 Take 1 Tablet(s) Oral HS at bed time 12/14/19 023 Inactive Cycle refill request. Cycle restarts (01/04/23). levothyroxine 50 mcg tablet RxNorm: 409701 TAKE 1 TABLET BY MOUTH ONCE DAILY BEFORE BREAKFAST 12/14/19 23 023 Inactive Cycle refill request. Cycle restarts (01/04/23). amlodipine 5 mg tablet RxNorm: 708156 Take 1 Tablet(s) Oral QAM every morning 12/14/19 23 023 Inactive Cycle refill request. Cycle restarts (01/04/23). buspirone 15 mg tablet RxNorm: 627917 Take 1 Tablet(s) Oral BID 12/14/19 23 023 Inactive Cycle refill request. Cycle restarts (01/04/23). amitriptyline 10 mg tablet RxNorm: 067176 Take 1 Tablet(s) Oral HS at bed time 12/14/19 23 023 Inactive Cycle refill request. Cycle restarts (01/04/23). levofloxacin 500 mg tablet RxNorm: 687644 Take 1 Tablet(s) Oral QD 11/24/19 23 023 Inactive levofloxacin 500 mg tablet RxNorm: 157523 Take 1 Tablet(s) Oral QD 11/24/19 23 023 Inactive levothyroxine 50 mcg tablet RxNorm: 572123 Take 1 Tablet(s) Oral QD before Breakfast 11/18/19 23 023 Inactive amitriptyline 10 mg tablet RxNorm: 536906 Take 1 Tablet(s) Oral QHS every night at bedtime 11/18/19 23 023 Inactive acetaminophen 500 mg tablet RxNorm: 566563 2 Tablet(s) Oral TID as needed 11/18/19 23 023 Inactive amlodipine 5 mg tablet RxNorm: 001087 Take 1 Tablet(s) Oral QAM every morning 11/18/19 23 023 Inactive melatonin 5 mg tablet RxNorm: 709735 Give 1 Tablet(s) Oral QHS every night at bedtime 11/18/19 23 023 Inactive buspirone 15 mg tablet RxNorm: 152129 Take 1 Tablet(s) Oral BID 11/18/19 023 Inactive Seroquel 25 mg tablet RxNorm: 653267 Take 1 Tablet(s) Oral QHS every night at bedtime 11/18/19 023 Inactive cholecalciferol (vitamin D3) 50 mcg (2,000 unit) tablet RxNorm: 048104 Take 1 Tablet(s) Oral QD 11/18/19 023 Inactive rivastigmine 1.5 mg capsule RxNorm: 696591 Take 2 Capsule(s) Oral BID 11/18/19 023 Inactive mirtazapine 15 mg tablet RxNorm: 063796 Take 1 Tablet(s) Oral QHS every night at bedtime 11/18/19 023 Inactive aspirin-acetaminoph en-caffeine 250 mg-250 mg-65 mg tablet RxNorm: 905852 Take 2 Tablet(s) Oral QD as needed 11/18/19 023 Inactive escitalopram 10 mg tablet RxNorm: 451333 Take 1 Tablet(s) Oral QD 11/18/19 023 Inactive Medication Administered No Medication Administered data Immunizations Vaccine Codes Dose Date Status Influenza CVX: 205 1.0 04/06/2022 Covid-19 (IZI-collecte mR NA, LNP-S, PF, 30 mcg/0.3 mL [...] 33 1.0 09/04/2000 Vital Signs Date Vital 04/07/2024 Blood Pressure 1: 135/64 Code: 8480-6 Heart Rate 1: 64 bpm Code: 8867-4 Respiratory Rate: 18 bpm Temperature: 36.3 (C) / 97.3 (F) Functional Status Functional / Cognitive Codes Status [...] Encounter Performer Location Location Address Codes Date ([address]80) Home or Residence Visit Est Pt - Moderate Level, 40 mins Diagnosis: Dementia[ICD10: F03.90] Diagnosis: Insomnia[ICD10: G47.00] Diagnosis: Depression, major, recurrent, 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] Aida Sr [facility] at [address] [address] CPT-4: 30962 04/07/2024 Plan of Care Planned Activity Notes Codes Status Date Patient Education: Patient Medication Summary Completed 04/07/2024 Patient Education: Influenza Complet ed 04/07/2024 Appointment: Aida Sr WPtel: [address] [place], [place] [phone] [place] F/U 12/31/2023 Appointment: Aida Sr WPtel: [address] [place], [place] [phone] [place] F/U 09/17/2023 Appointment: Aida Sr WPtel: [address] [place], [place] [phone] [place] F/U 07/23/2023 Appointment: Aida Sr WPtel: [address] [place], [place] [phone] [place] F/U 06/25/2023 Appointment: Bam Frey: [address] [place], [place] [phone] SDV 01/22/2023 Appointment: Aida Sr WPtel: [address] [place], [place] [phone] NPAWV 11/20/2022 Referral: General Psychiatrist Referral Patient/Family Scheduling Appointment Referral: [facility] Home Visits WPtel: [address] [id number] Referral Order Note Incomplete Instructions Comment Date Elderly female residing in [facility] assisted living at [facility]. PMHx: dementia, cluster B personality traits, depression, hypothyroidism, HTN, anxiety, suicidal ideationsPOLST: FULL CODEFred Anatoly-spouse, Fcvz: November/ham-therapist: weekly calls usually on -:1 visits 3 times weekly 01/28/2024 Depression, major, recurrent , severe with psychosis sertraline 150mg qd. Follows with psych as directed. Appreciate BHI. Monitor for increased sadness, depression, increased sleeping, self-isolating, & decreased appetite. Insomnia depakote 250mg qhs, risperidone 1mg q HS. Monitor for difficulty sleeping, irritation, increased behaviors & daytime tiredness. Dementia donepezil 10mg qd, namenda 2.5mg BID. Appreciate BHI. Remains appropriate for memory care setting, anticipate gradual decline with disease process. Assess monthly the need for increased services/supports. . 04/07/2024
--- OUTSIDE RECORDS SUMMARY | 2024-09-10 16:32 | XMS_ITS | CCD ---
Author Name Aida Sr CNP Address [address] [place] [address] Phone Organization [facility] Phone Care Team Providers Care Curtain Inspector Name Role Phone Orin RADHAAida Primary Care Provider Unavaila ble Orin RADHAAida Chronic Care Management Unavai lable Summary Purpose DataExchange Insurance Providers Payer name Policy type / Coverage type Covered libertarian ID Effective Begin Date Effective End Date [employer] Commercial Insurance [id number] Unknown Family history Runs in the family Diagnosis Age At Onset No Known Diseases N/A Social History Social History Element Codes Description Effec tive Dates Marital status Unknown 01/28/2024 Living arrangements Unknown Memory Care 01/28/[address]: 378488073 Never smoker 01/[address]: 464302039 No Alcohol Consum ption 01/28/2024 Sexually Active? 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.9 ICD-9: 344.9 [...] Instructions Senexon-S 8.6 mg-50 mg tablet RxNorm: 5017777 Take 1 Tablet(s) Oral BID as needed 06/30/20 24 028 Active risperidone 1 mg tablet RxNorm: 330921 Take 1 Tablet(s) Oral BID 06/26/20 24 025 Active memantine 5 mg tablet RxNorm: 395856 TAKE ONE-HALF TABLET (2.5MG) BY MOUTH TWICE DAILY 06/23/20 24 049 Active REFILL REQUEST FOR CYCLE THAT BEGINS 07/17, THANK YOU risperidone 0.5 mg tablet RxNorm: 591946 Take 1 Tablet(s) Oral QAM every morning 03/14/20 24 024 Inactive acetaminophen 500 mg tablet RxNorm: 582325 Take 2 Tablet(s) Oral TID as needed 02/22/20 24 No Stop Date Active risperidone 1 mg tablet RxNorm: 385516 Take 1 Tablet(s) Oral HS at bed time 02/22/20 24 024 Inactive acetaminophen 500 mg tablet RxNorm: 553926 Take 2 Tablet(s) Oral TID as needed 02/22/20 24 024 Inactive sertraline 100 mg tablet RxNorm: 079481 Take 1 Tablet(s) Oral QD Take w/ 50mg tablet 01/27/20 24 025 Active sertraline 50 mg tablet RxNorm: 019781 Take 1 Tablet(s) Oral QD Take w/ 100mg tablet 01/27/20 24 025 Active acetaminophen 500 mg tablet RxNorm: 619228 Take 2 Tablet(s) Oral TID as needed 01/27/20 24 024 Inactive amlodipine 5 mg tablet RxNorm: 479275 Take 1 Tablet(s) Oral QAM every morning 01/09/20 24 048 Active REFILL REQUEST FOR CYCLE THAT BEGINS 01/30, THANK YOU! levothyroxine 50 mcg tablet RxNorm: 864114 Take 1 Tablet(s) Oral QD BEFORE BREAKFAST 01/09/20 24 048 Active REFILL REQUEST FOR CYCLE THAT BEGINS 01/30, THANK YOU! cholecalciferol (vitamin D3) 50 mcg (2,000 unit) tablet RxNorm: 891774 Take 1 Tablet(s) Oral QAM every morning 01/09/20 24 048 Active REFILL REQUEST FOR CYCLE THAT BEGINS 01/30, THANK YOU! risperidone 0.5 mg tablet RxNorm: 898032 Take 1 Tablet(s) Oral BID 01/09/20 24 024 Inactive REFILL REQUEST FOR CYCLE THAT BEGINS 01/30, THANK YOU! sertraline 50 mg tablet RxNorm: 931082 TAKE 1 TABLET BY MOUTH ONCE DAILY. TAKE ALONG WITH 100 MG TABLET DAILY FOR A TOTAL DOSE OF 150 MG 01/09/20 24 024 Inactive REFILL REQUEST FOR CYCLE THAT BEGINS 01/30, THANK YOU! risperidone 0.5 mg tablet RxNorm: 277234 Take 1 Tablet(s) Oral BID 01/07/20 24 024 Inactive levofloxacin 500 mg tablet RxNorm: 236286 Take 1 Tablet(s) Oral QD 12/31/19 24 024 Inactive acetaminophen 500 mg tablet RxNorm: 236510 Take 2 Tablet(s) Oral TID 12/31/19 24 024 Inactive levofloxacin 500 mg tablet RxNorm: 810361 Take 1 Tablet(s) Oral QD 12/31/19 24 024 Inactive divalproex ER 250 mg tablet,extended release 24 hr RxNorm: 4554719 TAKE 1 TABLET BY MOUTH AT BEDTIME HAZARDOUS DRUG-DOUBLE GLOVE 10/21/19 24 048 Active CYCLE FILL REFILL REQUEST FOR CYCLE FILL THAT STARTS 11/08/2023. risperidone 1 mg tablet RxNorm: 225401 Take 1 Tablet(s) Oral BID 10/21/19 24 024 Inactive CYCLE FILL REFILL REQUEST FOR CYCLE FILL THAT STARTS 11/08/2023. Senexon-S 8.6 mg-50 mg tablet RxNorm: 0931120 Take 1 Tablet(s) Oral BID as needed 09/13/19 24 025 Inactive acetaminophen 500 mg tablet RxNorm: 706143 Take 2 Tablet(s) Oral BID as needed 09/13/19 24 Inactive Tylenol Extra Strength 500 mg tablet RxNorm: 099565 Take 2 Tablet(s) Oral BID as needed 09/13/19 24 Inactive trazodone 50 mg tablet RxNorm: 382800 Take 1 Tablet(s) Oral QHS every night at bedtime 09/13/19 24 Inactive quetiapine 100 mg tablet RxNorm: 150517 Take 1.5 Tablet(s) Oral HS at bed time 09/13/19 24 Inactive sertraline 100 mg tablet RxNorm: 028539 Take 1.5 Tablet(s) Oral QD 09/13/19 24 Inactive Pain Reliever Plus 250 mg-250 mg-65 mg tablet RxNorm: 089173 Take 2 Tablet(s) Oral QD as needed 09/13/19 24 Inactive sertraline 100 mg tablet RxNorm: 025508 Take 1 Tablet(s) Oral QD 07/29/19 Inactive Please authorize cycle refill. Thanks. acetaminophen 500 mg tablet RxNorm: 892963 Take 2 Tablet(s) Oral BID as needed 07/20/19 24 Inactive acetaminophen 500 mg tablet RxNorm: 976679 Take 2 Tablet(s) Oral BID as needed 07/20/19 24 024 Inactive sertraline 100 mg tablet RxNorm: 982985 Take 1 Tablet(s) Oral QD 07/13/19 24 024 Inactive donepezil 5 mg tablet RxNorm: 942409 TAKE ONE-HALF TABLET (2.5MG) BY MOUTH ONCE DAILY 07/05/20 023 Inactive Cycle refill request. Cycle restarts (07/19/23). risperidone 1 mg tablet RxNorm: 834642 Take 1 Tablet(s) Oral HS at bed time 06/25/20 024 Inactive trazodone 50 mg tablet RxNorm: 403696 Take 1 Tablet(s) Oral QHS every night at bedtime as needed 06/25/20 024 Inactive quetiapine 25 mg tablet RxNorm: 429929 Take 1 Tablet(s) Oral Q4H every four hours as needed 06/25/20 024 Inactive Senna-S 8.6 mg-50 mg tablet RxNorm: 938484 Take 1 Tablet(s) Oral BID as needed 06/25/20 023 Inactive trazodone 50 mg tablet RxNorm: 289320 Take 1 Tablet(s) Oral QHS every night at bedtime as needed 06/25/20 023 Inactive Senna-S 8.6 mg-50 mg tablet RxNorm: 620384 Take 1 Tablet(s) Oral BID as needed 06/25/20 024 Inactive acetaminophen 500 mg tablet RxNorm: 371413 Take 2 Tablet(s) Oral BID as needed 06/18/20 024 Inactive acetaminophen 500 mg tablet RxNorm: 771169 Take 2 Tablet(s) Oral BID as needed 06/18/20 23 023 Inactive Excedrin Extra Strength 250 mg-250 mg-65 mg tablet RxNorm: 565488 Take 2 Tablet(s) Oral QD as needed 06/18/20 23 023 Inactive Excedrin Extra Strength 250 mg-250 mg-65 mg tablet RxNorm: 666664 Take 2 Tablet(s) Oral QD as needed 06/18/20 024 Inactive risperidone 1 mg tablet RxNorm: 719554 Take 1 Tablet(s) Oral BID 06/04/20 23 023 Inactive quetiapine 25 mg tablet RxNorm: 639359 Take 1 Tablet(s) Oral BID as needed 06/04/20 23 023 Inactive trazodone 50 mg tablet RxNorm: 334913 Take 1 Tablet(s) Oral QHS every night at bedtime 06/04/20 023 Inactive donepezil 10 mg tablet RxNorm: 437688 Take 1 Tablet(s) Oral QD 06/04/20 024 Inactive risperidone 1 mg tablet RxNorm: 299405 Take 1 Tablet(s) Oral BID as needed 06/04/20 23 023 Inactive Senexon-S 8.6 mg-50 mg tablet RxNorm: 9790917 Take 1 Tablet(s) Oral BID 06/03/20 023 Inactive Please authorize quantity 90 day supply with PRN refills for assisted living patient. Their cycle restarts 06/14/23. Thank you! memantine 5 mg tablet RxNorm: 105204 TAKE ONE-HALF TABLET (2.5MG) BY MOUTH TWICE DAILY 06/03/20 023 Inactive Please authorize quantity 90 day supply with PRN refills for assisted living patient. Their cycle restarts 06/14/23. Thank you! divalproex 125 mg capsule,delayed release sprinkle RxNorm: 9937558 TAKE 4 CAPSULES (500MG) BY MOUTH AT BEDTIME 06/03/20 024 Inactive Please authorize quantity 90 day supply with PRN refills for assisted living patient. Their cycle restarts 06/14/23. Thank you! sertraline 50 mg tablet RxNorm: 393901 Take 1 Tablet(s) Oral QD 06/03/20 024 Inactive Please authorize quantity 90 day supply with PRN refills for assisted living patient. Their cycle restarts 06/14/23. Thank you! naproxen 500 mg tablet RxNorm: 940189 Take 1 Tablet(s) Oral BID 01/23/20 023 Inactive naproxen 500 mg tablet RxNorm: 448777 Take 1 Tablet(s) Oral BID 01/23/20 23 023 Inactive naproxen 500 mg tablet RxNorm: 468547 Take 1 Tablet(s) Oral BID 01/23/20 23 023 Inactive mirtazapine 15 mg tablet RxNorm: 914781 Take 1 Tablet(s) Oral HS at bed time 01/01/20 023 Inactive CYCLE FILL REQUEST FOR CYCLE THAT STARTS 01/04/2023 escitalopram 10 mg tablet RxNorm: 099555 Take 1 Tablet(s) Oral QAM every morning 12/14/19 023 Inactive Cycle refill request. Cycle restarts (01/04/23). cholecalciferol (vitamin D3) 50 mcg (2,000 unit) tablet RxNorm: 425311 Take 1 Tablet(s) Oral QAM every morning 12/14/19 23 023 Inactive Cycle refill request. Cycle restarts (01/04/23). melatonin 10 mg sublingual tablet RxNorm: 0394500 TAKE 1 TABLET BY MOUTH AT BEDTIME NOTE DOSAGE/STRENGTH* 12/14/19 23 023 Inactive Cycle refill request. Cycle restarts (01/04/23). rivastigmine 1.5 mg capsule RxNorm: 482420 Take 1 Capsule(s) Oral BID 12/14/19 23 023 Inactive Cycle refill request. Cycle restarts (01/04/23). quetiapine 100 mg tablet RxNorm: 575792 Take 1 Tablet(s) Oral HS at bed time 12/14/19 23 023 Inactive Cycle refill request. Cycle restarts (01/04/23). levothyroxine 50 mcg tablet RxNorm: 296179 TAKE 1 TABLET BY MOUTH ONCE DAILY BEFORE BREAKFAST 12/14/19 23 023 Inactive Cycle refill request. Cycle restarts (01/04/23). amlodipine 5 mg tablet RxNorm: 162212 Take 1 Tablet(s) Oral QAM every morning 12/14/19 23 023 Inactive Cycle refill request. Cycle restarts (01/04/23). buspirone 15 mg tablet RxNorm: 077424 Take 1 Tablet(s) Oral BID 12/14/19 23 023 Inactive Cycle refill request. Cycle restarts (01/04/23). amitriptyline 10 mg tablet RxNorm: 895637 Take 1 Tablet(s) Oral HS at bed time 12/14/19 23 023 Inactive Cycle refill request. Cycle restarts (01/04/23). levofloxacin 500 mg tablet RxNorm: 007146 Take 1 Tablet(s) Oral QD 11/24/19 23 023 Inactive levofloxacin 500 mg tablet RxNorm: 103995 Take 1 Tablet(s) Oral QD 11/24/19 23 023 Inactive levothyroxine 50 mcg tablet RxNorm: 394152 Take 1 Tablet(s) Oral QD before Breakfast 11/18/19 023 Inactive amitriptyline 10 mg tablet RxNorm: 039074 Take 1 Tablet(s) Oral QHS every night at bedtime 11/18/19 023 Inactive acetaminophen 500 mg tablet RxNorm: 192409 2 Tablet(s) Oral TID as needed 11/18/19 023 Inactive amlodipine 5 mg tablet RxNorm: 780015 Take 1 Tablet(s) Oral QAM every morning 11/18/19 023 Inactive melatonin 5 mg tablet RxNorm: 743210 Give 1 Tablet(s) Oral QHS every night at bedtime 11/18/19 023 Inactive buspirone 15 mg tablet RxNorm: 727168 Take 1 Tablet(s) Oral BID 11/18/19 023 Inactive Seroquel 25 mg tablet RxNorm: 340208 Take 1 Tablet(s) Oral QHS every night at bedtime 11/18/19 023 Inactive cholecalciferol (vitamin D3) 50 mcg (2,000 unit) tablet RxNorm: 556927 Take 1 Tablet(s) Oral QD 11/18/19 023 Inactive rivastigmine 1.5 mg capsule RxNorm: 398912 Take 2 Capsule(s) Oral BID 11/18/19 023 Inactive mirtazapine 15 mg tablet RxNorm: 697001 Take 1 Tablet(s) Oral QHS every night at bedtime 11/18/19 023 Inactive aspirin-acetaminoph en-caffeine 250 mg-250 mg-65 mg tablet RxNorm: 298268 Take 2 Tablet(s) Oral QD as needed 11/18/19 023 Inactive escitalopram 10 mg tablet RxNorm: 606352 Take 1 Tablet(s) Oral QD 11/18/19 023 Inactive Medication Administered No Medication Administered data Immunizations Vaccine Codes Dose Date Status Influenza CVX: 205 1.0 04/06/2022 Covid-19 ([place].ma mR NA, LNP-S, PF, 30 mcg/0.3 mL [...] 33 1.0 09/04/2000 Vital Signs Date Vital 06/30/2024 Blood Pressure 1: 145/70 Code: 8480-6 Heart Rate 1: 65 bpm [...] Encounter Performer Location Location Address Codes Date (92994) Home or Residence Visit Est Pt - Moderate Level, 40 mins Diagnosis: Dementia[ICD10: F03.90] Diagnosis: Paranoid psychosis[ICD10: F22] Diagnosis: Depression, major, recurrent, 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] Aida Sr [facility] at [address] [address] CPT-4: 44467 06/30/2024 Plan of Care Planned Activity Notes Codes Status Date Patient Education: Patient Medication Summary Completed 06/30/2024 Patient Education: Influenza Complet ed 06/30/2024 Appointment: Aida Sr WPtel: [address] [place], [place] [phone] [place] F/U 12/31/2023 Appointment: Aida Sr WPtel: [address] [place], [place] [phone] [place] F/U 09/17/2023 Appointment: Aida Sr WPtel: [address] [place], [place] [phone] [place] F/U 07/23/2023 Appointment: Aida Sr WPtel: [address] [place], [place] [phone] [place] F/U 06/25/2023 Appointment: Bam Frey: [address] [place], [place] [phone] [place] SDV 01/22/2023 Appointment: Aida Sr WPtel: [address] [place], [place] [phone] [place] NPAWV 11/20/2022 Referral: General Psychiatrist Referral Patient/Family Scheduling Appointment Referral: VIA Orthopedics- I n Home Visits WPtel: [address], [address] [id number] Referral Order Note Incomplete Instructions Comment Date Elderly female residing in [facility] assisted living at [facility]. PMHx: dementia, cluster B personality traits, depression, hypothyroidism, HTN, anxiety, suicidal ideationsPOLST: FULL CODEFred Anatoly-spouse, Nygr: November/ham-therapist: weekly calls usually on -:1 visits 3 times weekly 01/28/2024 Dementia namenda 2.5mg BID, donepezil 2.5mg qd. Appreciate BHI. Safe in [facility]/ setting with 24 hour nursing supervision. Anticipate ongoing cognitive and physical decline with disease progression. Continue current care plan and reassessment in one month. Facility to update with any changes in the condition. Paranoid psychosis divalproex ER 250mg qd, risperidone 1mg BID. Follows with psych. Appreciate BHI. Monitor for hallucinations, delusions, anger outbursts or physical altercations, and free floating anxiety. 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 Follows with psych as directed. Appreciate BHI. Monitor for increased sadness, depression, increased sleeping, self-isolating, & decreased appetite.. 06/30/2024
--- OUTSIDE RECORDS SUMMARY | 2024-09-10 16:33 | XMS_ITS | CCD ---
Author Name Summer Staton CNP Address [address] [place] [address] Phone Organization [facility] Phone Care Team Providers Care Knife Blade Polisher Name Role Phone Aida Sr CNP Primary Care Provider Unavaila ble Aida Sr CNP Chronic Care Management Unavai elvis Summary Purpose DataExchange Insurance Providers Payer name Policy type / Coverage type Covered alliance party ID Effective Begin Date Effective End Date [employer] [id number] Unknown [id number] Family History Family History data not found [...] Fill Instructions naproxen 500 mg tablet RxNorm: 612960 Take 1 Tablet(s) Oral BID 01/23/20 23 023 Inactive naproxen 500 mg tablet RxNorm: 471427 Take 1 Tablet(s) Oral BID 01/23/20 023 Inactive naproxen 500 mg tablet RxNorm: 089833 Take 1 Tablet(s) Oral BID 01/23/20 023 Inactive mirtazapine 15 mg tablet RxNorm: 978012 Take 1 Tablet(s) Oral HS at bed time 01/01/20 023 Inactive CYCLE FILL REQUEST FOR CYCLE THAT STARTS 01/04/2023 escitalopram 10 mg tablet RxNorm: 039741 Take 1 Tablet(s) Oral QAM every morning 12/14/19 023 Inactive Cycle refill request. Cycle restarts (01/04/23). melatonin 10 mg sublingual tablet RxNorm: 4787130 TAKE 1 TABLET BY MOUTH AT BEDTIME NOTE DOSAGE/STRENGTH* 12/14/19 023 Inactive Cycle refill request. Cycle restarts (01/04/23). rivastigmine 1.5 mg capsule RxNorm: 357150 Take 1 Capsule(s) Oral BID 12/14/19 23 023 Inactive Cycle refill request. Cycle restarts (01/04/23). quetiapine 100 mg tablet RxNorm: 077525 Take 1 Tablet(s) Oral HS at bed time 12/14/19 23 023 Inactive Cycle refill request. Cycle restarts (01/04/23). buspirone 15 mg tablet RxNorm: 484020 Take 1 Tablet(s) Oral BID 12/14/19 23 023 Inactive Cycle refill request. Cycle restarts (01/04/23). amitriptyline 10 mg tablet RxNorm: 592326 Take 1 Tablet(s) Oral HS at bed time 12/14/19 23 023 Inactive Cycle refill request. Cycle restarts (01/04/23). cholecalciferol (vitamin D3) 50 mcg (2,000 unit) tablet RxNorm: 229146 Take 1 Tablet(s) Oral QAM every morning 12/14/19 23 023 Inactive Cycle refill request. Cycle restarts (01/04/23). levothyroxine 50 mcg tablet RxNorm: 421340 TAKE 1 TABLET BY MOUTH ONCE DAILY BEFORE BREAKFAST 12/14/19 23 023 Inactive Cycle refill request. Cycle restarts (01/04/23). amlodipine 5 mg tablet RxNorm: 260726 Take 1 Tablet(s) Oral QAM every morning 12/14/19 23 023 Inactive Cycle refill request. Cycle restarts (01/04/23). levofloxacin 500 mg tablet RxNorm: 001346 Take 1 Tablet(s) Oral QD 11/24/19 23 023 Inactive levofloxacin 500 mg tablet RxNorm: 680831 Take 1 Tablet(s) Oral QD 11/24/19 23 023 Inactive acetaminophen 500 mg tablet RxNorm: 762590 2 Tablet(s) Oral TID as needed 11/18/19 23 023 Inactive Seroquel 25 mg tablet RxNorm: 060401 Take 1 Tablet(s) Oral QHS every night at bedtime 11/18/19 23 023 Inactive aspirin-acetaminoph en-caffeine 250 mg-250 mg-65 mg tablet RxNorm: 004750 Take 2 Tablet(s) Oral QD as needed 11/18/19 23 023 Inactive levothyroxine 50 mcg tablet RxNorm: 392158 Take 1 Tablet(s) Oral QD before Breakfast 11/18/19 23 023 Inactive amitriptyline 10 mg tablet RxNorm: 863767 Take 1 Tablet(s) Oral QHS every night at bedtime 11/18/19 023 Inactive amlodipine 5 mg tablet RxNorm: 887210 Take 1 Tablet(s) Oral QAM every morning 11/18/19 023 Inactive melatonin 5 mg tablet RxNorm: 497822 Give 1 Tablet(s) Oral QHS every night at bedtime 11/18/19 023 Inactive buspirone 15 mg tablet RxNorm: 232935 Take 1 Tablet(s) Oral BID 11/18/19 023 Inactive cholecalciferol (vitamin D3) 50 mcg (2,000 unit) tablet RxNorm: 267243 Take 1 Tablet(s) Oral QD 11/18/19 023 Inactive rivastigmine 1.5 mg capsule RxNorm: 265366 Take 2 Capsule(s) Oral BID 11/18/19 023 Inactive mirtazapine 15 mg tablet RxNorm: 007893 Take 1 Tablet(s) Oral QHS every night at bedtime 11/18/19 023 Inactive escitalopram 10 mg tablet RxNorm: 499000 Take 1 Tablet(s) Oral QD 11/18/19 023 Inactive Medication Administered No Medication Administered data Immunizations Vaccine Codes Dose Date Status Influenza CVX: 205 1.0 04/06/2022 Covid-19 ([place] mR NA, LNP-S, PF, 30 mcg/0.3 mL [...] Encounter Performer Location Location Address Codes Date ([address]382) Home or Residence Visit Est Pt - Moderate Level, 40 mins Diagnosis: Major depression, recurrent[ICD10: F33.9] Diagnosis: Anxiety[ICD10: F41.9] Diagnosis: Dementia[ICD10: F03.90] Summer Staton [facility] at [address] [address] CPT-4: 85731 02/28/2023 Plan of Care Planned Activity Notes Codes Status Date Patient Education: Patient Medication Summary Completed 02/28/2023 Patient Education: Influenza Vaccine Completed 02/28/2023 Appointment: Bam Frey: [address] [place], [place] [phone] SDV 01/22/2023 Appointment: Aida Sr WPtel: [address] [place], [place] [phone] NPAWV 11/20/2022 Referral: General Psychiatrist Referral Patient/Family Scheduling Appointment Referral: [facility] [address] [facility] [id number] Referral Order Note Incomplete Instructions Comment Date Elderly female residing in [facility] assisted living at [facility]. PMHx: dementia, cluster B personality traits, depression, hypothyroidism, HTN, anxiety, suicidal ideationsPOLST: FULL CODEFred Anatoly-spouse, Gwvz: November/-therapist: weekly calls usually on -1:1 visits 3 times weekly 01/28/2024 Anxiety Monitor with dc of amitriptyline. Continue Buspar 15mg bid. Depression Plan to taper and discontinue Seroquel as this has not been overly effective in management in mood and has continued to be increased. Plan today to start Abilify 1mg daily for one week and taper to 2mg daily. Amitriptyline has been discontinued. Neurocognitive Disorders Contributes to mood. Patient lacks understanding of why she is in and not living with her spouse. Focused on her environment today and wanting to move to another floor. Continue with supportive environment. Monitor for gradual cognitive changes, increased need for services, and weight loss related to progressive disease process. . 02/28/2023
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
--- OUTSIDE RECORDS SUMMARY | 2024-09-10 16:34 | XMS_ITS | CCD ---
Author Organization Unknown Care Team Providers Care Broadcaster Name Role Phone Aida Sr CNP Primary Care Provider Unavaila ble Aida Sr CNP Chronic Care Management Unavai lable Summary Purpose DataExchange Insurance Providers Payer name Policy type / Coverage type Covered alliance party ID Effective Begin Date Effective End Date [employer] Commercial Insurance [id number] Unknown Family history Runs in the family Diagnosis Age At Onset No Known Diseases N/A Social History Social History Element Codes Description Effec tive Dates Marital status Unknown 01/28/2024 Living arrangements Unknown Memory Care 01/28/[address]: 442166566 Never smoker 01/[address]: 030082799 No Alcohol Consum ption 01/28/2024 Sexually Active? [...] Fill Instructions donepezil 5 mg tablet RxNorm: 845741 TAKE ONE-HALF TABLET (2.5MG) BY MOUTH ONCE DAILY 07/20/19 049 Active CYCLE FILL REFILL REQUEST FOR CYCLE FILL THAT STARTS 08/14/2024 Senexon-S 8.6 mg-50 mg tablet RxNorm: 3359291 Take 1 Tablet(s) Oral BID as needed 06/30/20 24 028 Active risperidone 1 mg tablet RxNorm: 565116 Take 1 Tablet(s) Oral BID 06/26/20 24 025 Active memantine 5 mg tablet RxNorm: 249773 TAKE ONE-HALF TABLET (2.5MG) BY MOUTH TWICE DAILY 06/23/20 24 049 Active REFILL REQUEST FOR CYCLE THAT BEGINS 07/17, THANK YOU risperidone 0.5 mg tablet RxNorm: 858366 Take 1 Tablet(s) Oral QAM every morning 03/14/20 24 024 Inactive acetaminophen 500 mg tablet RxNorm: 298484 Take 2 Tablet(s) Oral TID as needed 02/22/20 24 No Stop Date Active risperidone 1 mg tablet RxNorm: 590343 Take 1 Tablet(s) Oral HS at bed time 02/22/20 24 024 Inactive acetaminophen 500 mg tablet RxNorm: 126929 Take 2 Tablet(s) Oral TID as needed 02/22/20 24 024 Inactive sertraline 100 mg tablet RxNorm: 250663 Take 1 Tablet(s) Oral QD Take w/ 50mg tablet 01/27/20 24 025 Active sertraline 50 mg tablet RxNorm: 274150 Take 1 Tablet(s) Oral QD Take w/ 100mg tablet 01/27/20 24 025 Active acetaminophen 500 mg tablet RxNorm: 856943 Take 2 Tablet(s) Oral TID as needed 01/27/20 24 024 Inactive amlodipine 5 mg tablet RxNorm: 076315 Take 1 Tablet(s) Oral QAM every morning 01/09/20 24 048 Active REFILL REQUEST FOR CYCLE THAT BEGINS 01/30, THANK YOU! levothyroxine 50 mcg tablet RxNorm: 483637 Take 1 Tablet(s) Oral QD BEFORE BREAKFAST 01/09/20 24 048 Active REFILL REQUEST FOR CYCLE THAT BEGINS 01/30, THANK YOU! cholecalciferol (vitamin D3) 50 mcg (2,000 unit) tablet RxNorm: 102222 Take 1 Tablet(s) Oral QAM every morning 01/09/20 24 048 Active REFILL REQUEST FOR CYCLE THAT BEGINS 01/30, THANK YOU! risperidone 0.5 mg tablet RxNorm: 888459 Take 1 Tablet(s) Oral BID 01/09/20 24 024 Inactive REFILL REQUEST FOR CYCLE THAT BEGINS 01/30, THANK YOU! sertraline 50 mg tablet RxNorm: 185608 TAKE 1 TABLET BY MOUTH ONCE DAILY. TAKE ALONG WITH 100 MG TABLET DAILY FOR A TOTAL DOSE OF 150 MG 01/09/20 24 024 Inactive REFILL REQUEST FOR CYCLE THAT BEGINS 01/30, THANK YOU! risperidone 0.5 mg tablet RxNorm: 991651 Take 1 Tablet(s) Oral BID 01/07/20 24 024 Inactive levofloxacin 500 mg tablet RxNorm: 439047 Take 1 Tablet(s) Oral QD 12/31/19 24 024 Inactive acetaminophen 500 mg tablet RxNorm: 090567 Take 2 Tablet(s) Oral TID 12/31/19 24 024 Inactive levofloxacin 500 mg tablet RxNorm: 771153 Take 1 Tablet(s) Oral QD 12/31/19 24 024 Inactive divalproex ER 250 mg tablet,extended release 24 hr RxNorm: 9489434 TAKE 1 TABLET BY MOUTH AT BEDTIME HAZARDOUS DRUG-DOUBLE GLOVE 10/21/19 24 048 Active CYCLE FILL REFILL REQUEST FOR CYCLE FILL THAT STARTS 11/08/2023. risperidone 1 mg tablet RxNorm: 794894 Take 1 Tablet(s) Oral BID 10/21/19 24 024 Inactive CYCLE FILL REFILL REQUEST FOR CYCLE FILL THAT STARTS 11/08/2023. Senexon-S 8.6 mg-50 mg tablet RxNorm: 6978110 Take 1 Tablet(s) Oral BID as needed 09/13/19 24 025 Inactive acetaminophen 500 mg tablet RxNorm: 664607 Take 2 Tablet(s) Oral BID as needed 09/13/19 24 Inactive Tylenol Extra Strength 500 mg tablet RxNorm: 607036 Take 2 Tablet(s) Oral BID as needed 09/13/19 24 Inactive trazodone 50 mg tablet RxNorm: 060808 Take 1 Tablet(s) Oral QHS every night at bedtime 09/13/19 24 Inactive quetiapine 100 mg tablet RxNorm: 277922 Take 1.5 Tablet(s) Oral HS at bed time 09/13/19 24 Inactive sertraline 100 mg tablet RxNorm: 060178 Take 1.5 Tablet(s) Oral QD 09/13/19 24 Inactive Pain Reliever Plus 250 mg-250 mg-65 mg tablet RxNorm: 649319 Take 2 Tablet(s) Oral QD as needed 09/13/19 24 Inactive sertraline 100 mg tablet RxNorm: 847046 Take 1 Tablet(s) Oral QD 07/29/19 Inactive Please authorize cycle refill. Thanks. acetaminophen 500 mg tablet RxNorm: 268398 Take 2 Tablet(s) Oral BID as needed 07/20/19 24 Inactive acetaminophen 500 mg tablet RxNorm: 127598 Take 2 Tablet(s) Oral BID as needed 07/20/19 24 024 Inactive sertraline 100 mg tablet RxNorm: 556643 Take 1 Tablet(s) Oral QD 07/13/19 24 024 Inactive donepezil 5 mg tablet RxNorm: 389491 TAKE ONE-HALF TABLET (2.5MG) BY MOUTH ONCE DAILY 07/05/20 023 Inactive Cycle refill request. Cycle restarts (07/19/23). risperidone 1 mg tablet RxNorm: 882515 Take 1 Tablet(s) Oral HS at bed time 06/25/20 024 Inactive trazodone 50 mg tablet RxNorm: 533547 Take 1 Tablet(s) Oral QHS every night at bedtime as needed 06/25/20 024 Inactive quetiapine 25 mg tablet RxNorm: 502800 Take 1 Tablet(s) Oral Q4H every four hours as needed 06/25/20 024 Inactive Senna-S 8.6 mg-50 mg tablet RxNorm: 042786 Take 1 Tablet(s) Oral BID as needed 06/25/20 023 Inactive trazodone 50 mg tablet RxNorm: 760849 Take 1 Tablet(s) Oral QHS every night at bedtime as needed 06/25/20 023 Inactive Senna-S 8.6 mg-50 mg tablet RxNorm: 853964 Take 1 Tablet(s) Oral BID as needed 06/25/20 024 Inactive acetaminophen 500 mg tablet RxNorm: 882730 Take 2 Tablet(s) Oral BID as needed 06/18/20 024 Inactive acetaminophen 500 mg tablet RxNorm: 336956 Take 2 Tablet(s) Oral BID as needed 06/18/20 023 Inactive Excedrin Extra Strength 250 mg-250 mg-65 mg tablet RxNorm: 595451 Take 2 Tablet(s) Oral QD as needed 06/18/20 23 023 Inactive Excedrin Extra Strength 250 mg-250 mg-65 mg tablet RxNorm: 445665 Take 2 Tablet(s) Oral QD as needed 06/18/20 024 Inactive risperidone 1 mg tablet RxNorm: 206970 Take 1 Tablet(s) Oral BID 06/04/20 023 Inactive quetiapine 25 mg tablet RxNorm: 771175 Take 1 Tablet(s) Oral BID as needed 06/04/20 023 Inactive trazodone 50 mg tablet RxNorm: 802789 Take 1 Tablet(s) Oral QHS every night at bedtime 06/04/20 023 Inactive donepezil 10 mg tablet RxNorm: 133688 Take 1 Tablet(s) Oral QD 06/04/20 024 Inactive risperidone 1 mg tablet RxNorm: 226296 Take 1 Tablet(s) Oral BID as needed 06/04/20 23 023 Inactive Senexon-S 8.6 mg-50 mg tablet RxNorm: 4457242 Take 1 Tablet(s) Oral BID 06/03/20 23 023 Inactive Please authorize quantity 90 day supply with PRN refills for assisted living patient. Their cycle restarts 06/14/23. Thank you! memantine 5 mg tablet RxNorm: 021782 TAKE ONE-HALF TABLET (2.5MG) BY MOUTH TWICE DAILY 06/03/20 023 Inactive Please authorize quantity 90 day supply with PRN refills for assisted living patient. Their cycle restarts 06/14/23. Thank you! divalproex 125 mg capsule,delayed release sprinkle RxNorm: 2224343 TAKE 4 CAPSULES (500MG) BY MOUTH AT BEDTIME 06/03/20 024 Inactive Please authorize quantity 90 day supply with PRN refills for assisted living patient. Their cycle restarts 06/14/23. Thank you! sertraline 50 mg tablet RxNorm: 574805 Take 1 Tablet(s) Oral QD 06/03/20 024 Inactive Please authorize quantity 90 day supply with PRN refills for assisted living patient. Their cycle restarts 06/14/23. Thank you! naproxen 500 mg tablet RxNorm: 276386 Take 1 Tablet(s) Oral BID 01/23/20 23 023 Inactive naproxen 500 mg tablet RxNorm: 305727 Take 1 Tablet(s) Oral BID 01/23/20 23 023 Inactive naproxen 500 mg tablet RxNorm: 267086 Take 1 Tablet(s) Oral BID 01/23/20 23 023 Inactive mirtazapine 15 mg tablet RxNorm: 586171 Take 1 Tablet(s) Oral HS at bed time 01/01/20 023 Inactive CYCLE FILL REQUEST FOR CYCLE THAT STARTS 01/04/2023 escitalopram 10 mg tablet RxNorm: 602917 Take 1 Tablet(s) Oral QAM every morning 12/14/19 23 023 Inactive Cycle refill request. Cycle restarts (01/04/23). cholecalciferol (vitamin D3) 50 mcg (2,000 unit) tablet RxNorm: 672173 Take 1 Tablet(s) Oral QAM every morning 12/14/19 23 023 Inactive Cycle refill request. Cycle restarts (01/04/23). melatonin 10 mg sublingual tablet RxNorm: 7030400 TAKE 1 TABLET BY MOUTH AT BEDTIME NOTE DOSAGE/STRENGTH* 12/14/19 23 023 Inactive Cycle refill request. Cycle restarts (01/04/23). rivastigmine 1.5 mg capsule RxNorm: 843669 Take 1 Capsule(s) Oral BID 12/14/19 23 023 Inactive Cycle refill request. Cycle restarts (01/04/23). quetiapine 100 mg tablet RxNorm: 189466 Take 1 Tablet(s) Oral HS at bed time 12/14/19 23 023 Inactive Cycle refill request. Cycle restarts (01/04/23). levothyroxine 50 mcg tablet RxNorm: 005383 TAKE 1 TABLET BY MOUTH ONCE DAILY BEFORE BREAKFAST 12/14/19 23 023 Inactive Cycle refill request. Cycle restarts (01/04/23). amlodipine 5 mg tablet RxNorm: 730486 Take 1 Tablet(s) Oral QAM every morning 12/14/19 23 023 Inactive Cycle refill request. Cycle restarts (01/04/23). buspirone 15 mg tablet RxNorm: 782496 Take 1 Tablet(s) Oral BID 12/14/19 23 023 Inactive Cycle refill request. Cycle restarts (01/04/23). amitriptyline 10 mg tablet RxNorm: 747632 Take 1 Tablet(s) Oral HS at bed time 12/14/19 23 023 Inactive Cycle refill request. Cycle restarts (01/04/23). levofloxacin 500 mg tablet RxNorm: 989535 Take 1 Tablet(s) Oral QD 11/24/19 23 023 Inactive levofloxacin 500 mg tablet RxNorm: 922363 Take 1 Tablet(s) Oral QD 11/24/19 23 023 Inactive levothyroxine 50 mcg tablet RxNorm: 187042 Take 1 Tablet(s) Oral QD before Breakfast 11/18/19 023 Inactive amitriptyline 10 mg tablet RxNorm: 777712 Take 1 Tablet(s) Oral QHS every night at bedtime 11/18/19 023 Inactive acetaminophen 500 mg tablet RxNorm: 253804 2 Tablet(s) Oral TID as needed 11/18/19 023 Inactive amlodipine 5 mg tablet RxNorm: 654571 Take 1 Tablet(s) Oral QAM every morning 11/18/19 023 Inactive melatonin 5 mg tablet RxNorm: 803438 Give 1 Tablet(s) Oral QHS every night at bedtime 11/18/19 023 Inactive buspirone 15 mg tablet RxNorm: 817625 Take 1 Tablet(s) Oral BID 11/18/19 023 Inactive Seroquel 25 mg tablet RxNorm: 493641 Take 1 Tablet(s) Oral QHS every night at bedtime 11/18/19 023 Inactive cholecalciferol (vitamin D3) 50 mcg (2,000 unit) tablet RxNorm: 695895 Take 1 Tablet(s) Oral QD 11/18/19 023 Inactive rivastigmine 1.5 mg capsule RxNorm: 030875 Take 2 Capsule(s) Oral BID 11/18/19 023 Inactive mirtazapine 15 mg tablet RxNorm: 293521 Take 1 Tablet(s) Oral QHS every night at bedtime 11/18/19 023 Inactive aspirin-acetaminoph en-caffeine 250 mg-250 mg-65 mg tablet RxNorm: 433426 Take 2 Tablet(s) Oral QD as needed 11/18/19 023 Inactive escitalopram 10 mg tablet RxNorm: 807640 Take 1 Tablet(s) Oral QD 11/18/19 023 Inactive Medication Administered No Medication Administered data Immunizations Vaccine Codes Dose Date Status Influenza CVX: 205 1.0 04/06/2022 Covid-19 ([employer] mR NA, LNP-S, PF, 30 mcg/0.3 mL [...] WPtel: [address], [address] [id number] Referral Order Note Incomplete Instructions Comment Date Elderly female residing in [facility] assisted living at [facility]. PMHx: dementia, cluster B personality traits, depression, hypothyroidism, HTN, anxiety, suicidal ideationsPOLST: FULL CODEFred Anatoly-spouse, Lhht: -therapist: weekly calls usually on :1 visits 3 times weekly 01/28/2024
--- OUTSIDE RECORDS SUMMARY | 2024-09-10 16:34 | XMS_ITS | CCD ---
Author Name Aida Sr CNP Address [address] [facility]. [address] [facility] [address] [place] [address] Phone Organization [facility] Phone Care Team Providers Care Export Administrator Name Role Phone Orin RADHAAida Primary Care Provider Unavaila ble Orin RADHAAida Chronic Care Management Unavai lable Summary Purpose DataExchange Insurance Providers Payer name Policy type / Coverage type Covered constitution party ID Effective Begin Date Effective End Date [employer] Commercial Insurance [id number] Unknown Family history Runs in the family Diagnosis Age At Onset No Known Diseases N/A Social History Social History Element Codes Description Effec tive Dates Marital status Unknown 01/28/2024 Living arrangements Unknown Memory Care 01/28/[address]: 503135692 Never smoker 01/[address]: 520556366 No Alcohol Consum ption 01/28/2024 Sexually Active? [...] Condition St atus Acute cough SNOMED CT: 671841083 232259204 ICD-10: R05.1 ICD-9: 786.2 09/08/2024 Active Dementia ICD-10: F03.90 ICD-9: 294.20 09/08/2024 Active HTN (hypertension) ICD-10: I10 ICD-9: 401.9 09/08/2024 Active Hypothyroid ICD-10: E03.9 ICD-9: 244.9 09/08/2024 Active Insomnia ICD-10: G47.00 ICD-9: 780.52 09/08/2024 Active Left elbow pain SNOMED CT: 51903844 ICD-10: M25.522 ICD-9: 719.42 09/08/2024 Active Urinary frequency SNOMED CT: 854562596 ICD-10: R35.0 ICD-9: 788.41 09/08/2024 Active Frailty [...] Date Status Fill Instructions miscellaneous medical supply [facility] [place]Norm: TUNGUYEN DM LIQ 20-400ML Take 10 Milliliter(s) Oral BID as needed 09/09/19 No Stop Date Active Pain Reliever Plus 250 mg-250 mg-65 mg tablet RxNorm: 983115 Take 1 Tablet(s) Oral QD as needed 09/09/19 No Stop Date Active cefdinir 300 mg capsule RxNorm: 403243 Take 1 Capsule(s) Oral BID 09/09/19 25 025 Active trazodone 50 mg tablet RxNorm: 384214 Take 1 Tablet(s) Oral QHS every night at bedtime as needed 09/09/19 25 026 Active loperamide 2 mg tablet RxNorm: 953035 Take 1 Tablet(s) Oral BID as needed 09/09/19 25 025 Active cefdinir 300 mg capsule RxNorm: 656953 Take 1 Capsule(s) Oral BID 09/09/19 25 025 Inactive trazodone 50 mg tablet RxNorm: 583563 Take 1 Tablet(s) Oral QHS every night at bedtime 09/08/19 25 025 Inactive Calmoseptine 0.44 %-20.6 % topical ointment RxNorm: 8722216 Apply Topical TID as needed to Buttocks and affected areas 08/26/19 25 025 Active Calmoseptine 0.44 %-20.6 % topical ointment RxNorm: 1115944 Apply ointment Topical TID as needed to Buttocks and affected areas 08/26/19 25 025 Inactive ondansetron 4 mg disintegrating tablet RxNorm: 243269 Take 1 Tablet(s) Oral Q4H every four hours as needed 08/25/19 25 025 Inactive ondansetron 4 mg disintegrating tablet RxNorm: 925228 Take 1 Tablet(s) Oral Q4H every four hours as needed 08/25/19 25 025 Inactive sertraline 100 mg tablet RxNorm: 057220 Take 1 Tablet(s) Oral QD 08/14/19 25 025 Inactive REFILL REQUEST FOR CYCLE THAT STARTS ON 09/11/24. THANK YOU. donepezil 5 mg tablet RxNorm: 886752 TAKE ONE-HALF TABLET (2.5MG) BY MOUTH ONCE DAILY 07/20/19 25 049 Active CYCLE FILL REFILL REQUEST FOR CYCLE FILL THAT STARTS 08/14/2024 Senexon-S 8.6 mg-50 mg tablet RxNorm: 8574545 Take 1 Tablet(s) Oral BID as needed 06/30/20 24 028 Active risperidone 1 mg tablet RxNorm: 417547 Take 1 Tablet(s) Oral BID 06/26/20 24 025 Active memantine 5 mg tablet RxNorm: 465682 TAKE ONE-HALF TABLET (2.5MG) BY MOUTH TWICE DAILY 06/23/20 24 049 Active REFILL REQUEST FOR CYCLE THAT BEGINS 07/17, THANK YOU risperidone 0.5 mg tablet RxNorm: 535657 Take 1 Tablet(s) Oral QAM every morning 03/14/20 024 Inactive acetaminophen 500 mg tablet RxNorm: 198444 Take 2 Tablet(s) Oral TID as needed 02/22/20 24 No Stop Date Active risperidone 1 mg tablet RxNorm: 471686 Take 1 Tablet(s) Oral HS at bed time 02/22/20 24 024 Inactive acetaminophen 500 mg tablet RxNorm: 162517 Take 2 Tablet(s) Oral TID as needed 02/22/20 24 024 Inactive sertraline 100 mg tablet RxNorm: 472244 Take 1 Tablet(s) Oral QD Take w/ 50mg tablet 01/27/20 24 025 Active sertraline 50 mg tablet RxNorm: 866507 Take 1 Tablet(s) Oral QD Take w/ 100mg tablet 01/27/20 24 025 Active acetaminophen 500 mg tablet RxNorm: 354541 Take 2 Tablet(s) Oral TID as needed 01/27/20 24 024 Inactive amlodipine 5 mg tablet RxNorm: 805951 Take 1 Tablet(s) Oral QAM every morning 01/09/20 24 048 Active REFILL REQUEST FOR CYCLE THAT BEGINS 01/30, THANK YOU! levothyroxine 50 mcg tablet RxNorm: 584909 Take 1 Tablet(s) Oral QD BEFORE BREAKFAST 01/09/20 24 048 Active REFILL REQUEST FOR CYCLE THAT BEGINS 01/30, THANK YOU! cholecalciferol (vitamin D3) 50 mcg (2,000 unit) tablet RxNorm: 353109 Take 1 Tablet(s) Oral QAM every morning 01/09/20 24 048 Active REFILL REQUEST FOR CYCLE THAT BEGINS 01/30, THANK YOU! risperidone 0.5 mg tablet RxNorm: 414713 Take 1 Tablet(s) Oral BID 01/09/20 24 024 Inactive REFILL REQUEST FOR CYCLE THAT BEGINS 01/30, THANK YOU! sertraline 50 mg tablet RxNorm: 134875 TAKE 1 TABLET BY MOUTH ONCE DAILY. TAKE ALONG WITH 100 MG TABLET DAILY FOR A TOTAL DOSE OF 150 MG 01/09/20 24 024 Inactive REFILL REQUEST FOR CYCLE THAT BEGINS 01/30, THANK YOU! risperidone 0.5 mg tablet RxNorm: 695012 Take 1 Tablet(s) Oral BID 01/07/20 24 024 Inactive levofloxacin 500 mg tablet RxNorm: 716689 Take 1 Tablet(s) Oral QD 12/31/19 24 024 Inactive acetaminophen 500 mg tablet RxNorm: 293807 Take 2 Tablet(s) Oral TID 12/31/19 24 024 Inactive levofloxacin 500 mg tablet RxNorm: 423596 Take 1 Tablet(s) Oral QD 12/31/19 24 024 Inactive divalproex ER 250 mg tablet,extended release 24 hr RxNorm: 1253597 TAKE 1 TABLET BY MOUTH AT BEDTIME HAZARDOUS DRUG-DOUBLE GLOVE 10/21/19 24 048 Active CYCLE FILL REFILL REQUEST FOR CYCLE FILL THAT STARTS 11/08/2023. risperidone 1 mg tablet RxNorm: 549430 Take 1 Tablet(s) Oral BID 10/21/19 24 024 Inactive CYCLE FILL REFILL REQUEST FOR CYCLE FILL THAT STARTS 11/08/2023. acetaminophen 500 mg tablet RxNorm: 499265 Take 2 Tablet(s) Oral BID as needed 09/13/19 24 Inactive Tylenol Extra Strength 500 mg tablet RxNorm: 801645 Take 2 Tablet(s) Oral BID as needed 09/13/19 24 Inactive trazodone 50 mg tablet RxNorm: 767308 Take 1 Tablet(s) Oral QHS every night at bedtime 09/13/19 24 024 Inactive quetiapine 100 mg tablet RxNorm: 402151 Take 1.5 Tablet(s) Oral HS at bed time 09/13/19 24 024 Inactive Senexon-S 8.6 mg-50 mg tablet RxNorm: 2565056 Take 1 Tablet(s) Oral BID as needed 09/13/19 24 025 Inactive sertraline 100 mg tablet RxNorm: 391064 Take 1.5 Tablet(s) Oral QD 09/13/19 24 024 Inactive Pain Reliever Plus 250 mg-250 mg-65 mg tablet RxNorm: 569639 Take 2 Tablet(s) Oral QD as needed 09/13/19 24 024 Inactive sertraline 100 mg tablet RxNorm: 161725 Take 1 Tablet(s) Oral QD 07/29/19 24 024 Inactive Please authorize cycle refill. Thanks. acetaminophen 500 mg tablet RxNorm: 799961 Take 2 Tablet(s) Oral BID as needed 07/20/19 24 024 Inactive acetaminophen 500 mg tablet RxNorm: 364872 Take 2 Tablet(s) Oral BID as needed 07/20/19 24 024 Inactive sertraline 100 mg tablet RxNorm: 979519 Take 1 Tablet(s) Oral QD 07/13/19 024 Inactive donepezil 5 mg tablet RxNorm: 007521 TAKE ONE-HALF TABLET (2.5MG) BY MOUTH ONCE DAILY 07/05/20 023 Inactive Cycle refill request. Cycle restarts (07/19/23). risperidone 1 mg tablet RxNorm: 245704 Take 1 Tablet(s) Oral HS at bed time 06/25/20 024 Inactive trazodone 50 mg tablet RxNorm: 945216 Take 1 Tablet(s) Oral QHS every night at bedtime as needed 06/25/20 024 Inactive quetiapine 25 mg tablet RxNorm: 090541 Take 1 Tablet(s) Oral Q4H every four hours as needed 06/25/20 024 Inactive Senna-S 8.6 mg-50 mg tablet RxNorm: 858494 Take 1 Tablet(s) Oral BID as needed 06/25/20 023 Inactive trazodone 50 mg tablet RxNorm: 880956 Take 1 Tablet(s) Oral QHS every night at bedtime as needed 06/25/20 023 Inactive Senna-S 8.6 mg-50 mg tablet RxNorm: 563872 Take 1 Tablet(s) Oral BID as needed 06/25/20 024 Inactive acetaminophen 500 mg tablet RxNorm: 849209 Take 2 Tablet(s) Oral BID as needed 06/18/20 024 Inactive acetaminophen 500 mg tablet RxNorm: 888602 Take 2 Tablet(s) Oral BID as needed 06/18/20 23 023 Inactive Excedrin Extra Strength 250 mg-250 mg-65 mg tablet RxNorm: 052354 Take 2 Tablet(s) Oral QD as needed 06/18/20 23 023 Inactive Excedrin Extra Strength 250 mg-250 mg-65 mg tablet RxNorm: 358993 Take 2 Tablet(s) Oral QD as needed 06/18/20 23 024 Inactive risperidone 1 mg tablet RxNorm: 780981 Take 1 Tablet(s) Oral BID 06/04/20 23 023 Inactive quetiapine 25 mg tablet RxNorm: 465364 Take 1 Tablet(s) Oral BID as needed 06/04/20 023 Inactive trazodone 50 mg tablet RxNorm: 424895 Take 1 Tablet(s) Oral QHS every night at bedtime 06/04/20 023 Inactive donepezil 10 mg tablet RxNorm: 487230 Take 1 Tablet(s) Oral QD 06/04/20 024 Inactive risperidone 1 mg tablet RxNorm: 554440 Take 1 Tablet(s) Oral BID as needed 06/04/20 023 Inactive Senexon-S 8.6 mg-50 mg tablet RxNorm: 1381729 Take 1 Tablet(s) Oral BID 06/03/20 023 Inactive Please authorize quantity 90 day supply with PRN refills for assisted living patient. Their cycle restarts 06/14/23. Thank you! memantine 5 mg tablet RxNorm: 147037 TAKE ONE-HALF TABLET (2.5MG) BY MOUTH TWICE DAILY 06/03/20 023 Inactive Please authorize quantity 90 day supply with PRN refills for assisted living patient. Their cycle restarts 06/14/23. Thank you! divalproex 125 mg capsule,delayed release sprinkle RxNorm: 3035528 TAKE 4 CAPSULES (500MG) BY MOUTH AT BEDTIME 06/03/20 024 Inactive Please authorize quantity 90 day supply with PRN refills for assisted living patient. Their cycle restarts 06/14/23. Thank you! sertraline 50 mg tablet RxNorm: 401698 Take 1 Tablet(s) Oral QD 06/03/20 024 Inactive Please authorize quantity 90 day supply with PRN refills for assisted living patient. Their cycle restarts 06/14/23. Thank you! naproxen 500 mg tablet RxNorm: 236513 Take 1 Tablet(s) Oral BID 01/23/20 023 Inactive naproxen 500 mg tablet RxNorm: 755774 Take 1 Tablet(s) Oral BID 07/17/20 23 07/26/2 023 Inactive naproxen 500 mg tablet RxNorm: 053075 Take 1 Tablet(s) Oral BID 01/23/20 23 023 Inactive mirtazapine 15 mg tablet RxNorm: 091284 Take 1 Tablet(s) Oral HS at bed time 01/01/20 23 023 Inactive CYCLE FILL REQUEST FOR CYCLE THAT STARTS 01/04/2023 escitalopram 10 mg tablet RxNorm: 992923 Take 1 Tablet(s) Oral QAM every morning 12/14/19 23 023 Inactive Cycle refill request. Cycle restarts (01/04/23). cholecalciferol (vitamin D3) 50 mcg (2,000 unit) tablet RxNorm: 332515 Take 1 Tablet(s) Oral QAM every morning 12/14/19 23 023 Inactive Cycle refill request. Cycle restarts (01/04/23). melatonin 10 mg sublingual tablet RxNorm: 2375767 TAKE 1 TABLET BY MOUTH AT BEDTIME NOTE DOSAGE/STRENGTH* 12/14/19 23 023 Inactive Cycle refill request. Cycle restarts (01/04/23). rivastigmine 1.5 mg capsule RxNorm: 027254 Take 1 Capsule(s) Oral BID 12/14/19 023 Inactive Cycle refill request. Cycle restarts (01/04/23). quetiapine 100 mg tablet RxNorm: 902976 Take 1 Tablet(s) Oral HS at bed time 12/14/19 23 023 Inactive Cycle refill request. Cycle restarts (01/04/23). levothyroxine 50 mcg tablet RxNorm: 714245 TAKE 1 TABLET BY MOUTH ONCE DAILY BEFORE BREAKFAST 12/14/19 23 023 Inactive Cycle refill request. Cycle restarts (01/04/23). amlodipine 5 mg tablet RxNorm: 001169 Take 1 Tablet(s) Oral QAM every morning 12/14/19 23 023 Inactive Cycle refill request. Cycle restarts (01/04/23). buspirone 15 mg tablet RxNorm: 177769 Take 1 Tablet(s) Oral BID 12/14/19 23 023 Inactive Cycle refill request. Cycle restarts (01/04/23). amitriptyline 10 mg tablet RxNorm: 887123 Take 1 Tablet(s) Oral HS at bed time 12/14/19 23 023 Inactive Cycle refill request. Cycle restarts (01/04/23). levofloxacin 500 mg tablet RxNorm: 113093 Take 1 Tablet(s) Oral QD 11/24/19 23 023 Inactive levofloxacin 500 mg tablet RxNorm: 395582 Take 1 Tablet(s) Oral QD 11/24/19 23 023 Inactive levothyroxine 50 mcg tablet RxNorm: 857581 Take 1 Tablet(s) Oral QD before Breakfast 11/18/19 023 Inactive amitriptyline 10 mg tablet RxNorm: 180221 Take 1 Tablet(s) Oral QHS every night at bedtime 11/18/19 023 Inactive acetaminophen 500 mg tablet RxNorm: 093873 2 Tablet(s) Oral TID as needed 11/18/19 23 023 Inactive amlodipine 5 mg tablet RxNorm: 454018 Take 1 Tablet(s) Oral QAM every morning 11/18/19 023 Inactive melatonin 5 mg tablet RxNorm: 292118 Give 1 Tablet(s) Oral QHS every night at bedtime 11/18/19 23 023 Inactive buspirone 15 mg tablet RxNorm: 069269 Take 1 Tablet(s) Oral BID 11/18/19 023 Inactive Seroquel 25 mg tablet RxNorm: 887057 Take 1 Tablet(s) Oral QHS every night at bedtime 11/18/19 23 023 Inactive cholecalciferol (vitamin D3) 50 mcg (2,000 unit) tablet RxNorm: 887713 Take 1 Tablet(s) Oral QD 11/18/19 23 023 Inactive rivastigmine 1.5 mg capsule RxNorm: 678607 Take 2 Capsule(s) Oral BID 11/18/19 23 023 Inactive mirtazapine 15 mg tablet RxNorm: 256923 Take 1 Tablet(s) Oral QHS every night at bedtime 11/18/19 023 Inactive aspirin-acetaminoph en-caffeine 250 mg-250 mg-65 mg tablet RxNorm: 939012 Take 2 Tablet(s) Oral QD as needed 11/18/19 023 Inactive escitalopram 10 mg tablet RxNorm: 211711 Take 1 Tablet(s) Oral QD 11/18/19 023 Inactive Medication Administered No Medication Administered data Immunizations Vaccine Codes Dose Date Status Influenza CVX: 205 1.0 04/06/2022 Covid-19 ([employer] mR NA, LNP-S, PF, 30 mcg/0.3 mL [...] Patient Education: Patient Medication Summary Completed 09/08/2024 Appointment: Aida Sr WPtel: [address] [place], [place] [phone] [place] F/U 12/31/2023 Appointment: Aida Sr WPtel: [address] [place], [place] [phone] [place] F/U 09/17/2023 Appointment: Aida Sr WPtel: [address] [place], [place] [phone] [place] F/U 07/23/2023 Appointment: Aida Sr WPtel: [address] [place], [place] [phone] [place] F/U 06/25/2023 Appointment: Bam Frey: [address] [place], [place] [phone] [place] SDV 01/22/2023 Appointment: Aida Sr WPtel: [address] [place], [place] [phone] NPAWV 11/20/2022 Referral: General Psychiatrist Referral Patient/Family Scheduling Appointment Referral: VIA Orthopedics- I n Home Visits WPtel: [address], [address] [id number] Referral Order Note Incomplete Instructions Comment Date Elderly female residing in [facility] assisted living at [facility]. PMHx: dementia, cluster B personality traits, depression, hypothyroidism, HTN, anxiety, suicidal ideationsPOLST: FULL CODEFred Anatoly-spouse, Cuuz: ham-therapist: weekly calls usually on :1 visits 3 times weekly 01/28/2024
--- OUTSIDE RECORDS SUMMARY | 2024-09-10 16:34 | XMS_ITS | CCD ---
Author Name Aida Sr CNP Address [address] [facility] [address] [facility] [address] [place] [address] Phone Organization [facility] Phone Care Team Providers Care Revenue Cycle Specialist Name Role Phone Orin RADIOLOGICAL METALLURGISTAida Primary Care Provider Unavaila ble Orin RADIOLOGICAL METALLURGISTAida Chronic Care Management Unavai lable Summary Purpose DataExchange Insurance Providers Payer name Policy type / Coverage type Covered constitution party ID Effective Begin Date Effective End Date [employer] Commercial Insurance [id number] Unknown Family History Family History data not [...] Fill Instructions naproxen 500 mg tablet RxNorm: 262872 Take 1 Tablet(s) Oral BID 01/23/20 023 Inactive naproxen 500 mg tablet RxNorm: 505007 Take 1 Tablet(s) Oral BID 01/23/20 023 Inactive naproxen 500 mg tablet RxNorm: 335421 Take 1 Tablet(s) Oral BID 01/23/20 023 Inactive mirtazapine 15 mg tablet RxNorm: 680788 Take 1 Tablet(s) Oral HS at bed time 01/01/20 023 Inactive CYCLE FILL REQUEST FOR CYCLE THAT STARTS 01/04/2023 escitalopram 10 mg tablet RxNorm: 208201 Take 1 Tablet(s) Oral QAM every morning 12/14/19 023 Inactive Cycle refill request. Cycle restarts (01/04/23). melatonin 10 mg sublingual tablet RxNorm: 0685049 TAKE 1 TABLET BY MOUTH AT BEDTIME NOTE DOSAGE/STRENGTH* 12/14/19 023 Inactive Cycle refill request. Cycle restarts (01/04/23). rivastigmine 1.5 mg capsule RxNorm: 528036 Take 1 Capsule(s) Oral BID 12/14/19 023 Inactive Cycle refill request. Cycle restarts (01/04/23). buspirone 15 mg tablet RxNorm: 097669 Take 1 Tablet(s) Oral BID 12/14/19 023 Inactive Cycle refill request. Cycle restarts (01/04/23). cholecalciferol (vitamin D3) 50 mcg (2,000 unit) tablet RxNorm: 217361 Take 1 Tablet(s) Oral QAM every morning 12/14/19 23 023 Inactive Cycle refill request. Cycle restarts (01/04/23). quetiapine 100 mg tablet RxNorm: 983179 Take 1 Tablet(s) Oral HS at bed time 12/14/19 23 023 Inactive Cycle refill request. Cycle restarts (01/04/23). levothyroxine 50 mcg tablet RxNorm: 870916 TAKE 1 TABLET BY MOUTH ONCE DAILY BEFORE BREAKFAST 12/14/19 23 023 Inactive Cycle refill request. Cycle restarts (01/04/23). amlodipine 5 mg tablet RxNorm: 066114 Take 1 Tablet(s) Oral QAM every morning 12/14/19 23 023 Inactive Cycle refill request. Cycle restarts (01/04/23). amitriptyline 10 mg tablet RxNorm: 179660 Take 1 Tablet(s) Oral HS at bed time 12/14/19 23 023 Inactive Cycle refill request. Cycle restarts (01/04/23). levofloxacin 500 mg tablet RxNorm: 823760 Take 1 Tablet(s) Oral QD 11/24/19 23 023 Inactive levofloxacin 500 mg tablet RxNorm: 765589 Take 1 Tablet(s) Oral QD 11/24/19 23 023 Inactive acetaminophen 500 mg tablet RxNorm: 088181 2 Tablet(s) Oral TID as needed 11/18/19 23 023 Inactive levothyroxine 50 mcg tablet RxNorm: 166265 Take 1 Tablet(s) Oral QD before Breakfast 11/18/19 23 023 Inactive amitriptyline 10 mg tablet RxNorm: 141112 Take 1 Tablet(s) Oral QHS every night at bedtime 11/18/19 23 023 Inactive amlodipine 5 mg tablet RxNorm: 098669 Take 1 Tablet(s) Oral QAM every morning 11/18/19 23 023 Inactive melatonin 5 mg tablet RxNorm: 316870 Give 1 Tablet(s) Oral QHS every night at bedtime 11/18/19 23 023 Inactive buspirone 15 mg tablet RxNorm: 939798 Take 1 Tablet(s) Oral BID 11/18/19 023 Inactive Seroquel 25 mg tablet RxNorm: 012482 Take 1 Tablet(s) Oral QHS every night at bedtime 11/18/19 023 Inactive cholecalciferol (vitamin D3) 50 mcg (2,000 unit) tablet RxNorm: 173006 Take 1 Tablet(s) Oral QD 11/18/19 023 Inactive rivastigmine 1.5 mg capsule RxNorm: 447795 Take 2 Capsule(s) Oral BID 11/18/19 023 Inactive mirtazapine 15 mg tablet RxNorm: 944289 Take 1 Tablet(s) Oral QHS every night at bedtime 11/18/19 023 Inactive aspirin-acetaminoph en-caffeine 250 mg-250 mg-65 mg tablet RxNorm: 797957 Take 2 Tablet(s) Oral QD as needed 11/18/19 023 Inactive escitalopram 10 mg tablet RxNorm: 877997 Take 1 Tablet(s) Oral QD 11/18/19 023 Inactive Medication Administered No Medication Administered data Immunizations Vaccine Codes Dose Date Status Influenza CVX: 205 1.0 04/06/2022 Covid-19 ([facility] mR NA, LNP-S, PF, 30 mcg/0.3 mL [...] 33 1.0 09/04/2000 Vital Signs Date Vital 05/21/2023 Blood Pressure 1: 129/70 Code: 8480-6 Heart Rate 1: 71 bpm Code: 8867-4 Respiratory Rate: 18 bpm Temperature: 36.1 (C) / 96.9 (F) Weight: 169 lbs Code: 3141-9 Reason For Visit No Reason For Visit data Encounters Encounter Performer Location Location Address Codes Date (41954) Home or Residence Visit Est Pt - Moderate Level, 40 mins Diagnosis: Major depression, recurrent[ICD10: F33.9] 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, [address] [id number] Referral Order Note Incomplete Instructions Comment Date Elderly female residing in [facility] assisted living at [facility] in [place]. PMHx: dementia, cluster B personality traits, depression, hypothyroidism, HTN, anxiety, suicidal ideationsPOLST: FULL CODEFred Anatoly-spouse, Ybxt: November/-therapist: weekly calls usually on :1 visits 3 times weekly 01/28/2024 Major depression, recurrent Worsening mood. I want to kill myself. Let me outside so I can freeze to . Appears to have plans in place to hurt herself. Recommend sending to ED for further evaluation related to suicidal ideations. 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 Recommend sending to ED for further evaluation.. 05/21/2023
--- OUTSIDE RECORDS SUMMARY | 2024-09-10 16:34 | XMS_ITS | CCD ---
Author Name Aida Sr CNP Address [address] [place] [address] Phone Organization [facility] Phone Care Team Providers Care Respiratory Care Program Director Name Role Phone Orin BOOM BOSSAida Primary Care Provider Unavaila ble Orin BOOM BOSSAida Chronic Care Management Unavai lable Summary Purpose DataExchange Insurance Providers Payer name Policy type / Coverage type Covered democrat ID Effective Begin Date Effective End Date [employer] Commercial Insurance [id number] Unknown Family History Family History data not [...] Fill Instructions risperidone 1 mg tablet RxNorm: 593184 Take 1 Tablet(s) Oral HS at bed time 06/25/20 Inactive trazodone 50 mg tablet RxNorm: 627026 Take 1 Tablet(s) Oral QHS every night at bedtime as needed 06/25/20 024 Inactive quetiapine 25 mg tablet RxNorm: 935528 Take 1 Tablet(s) Oral Q4H every four hours as needed 06/25/20 024 Inactive Senna-S 8.6 mg-50 mg tablet RxNorm: 723985 Take 1 Tablet(s) Oral BID as needed 06/25/20 023 Inactive trazodone 50 mg tablet RxNorm: 161274 Take 1 Tablet(s) Oral QHS every night at bedtime as needed 06/25/20 023 Inactive Senna-S 8.6 mg-50 mg tablet RxNorm: 379971 Take 1 Tablet(s) Oral BID as needed 06/25/20 024 Inactive acetaminophen 500 mg tablet RxNorm: 351363 Take 2 Tablet(s) Oral BID as needed 06/18/20 024 Inactive Excedrin Extra Strength 250 mg-250 mg-65 mg tablet RxNorm: 716825 Take 2 Tablet(s) Oral QD as needed 06/18/20 024 Inactive acetaminophen 500 mg tablet RxNorm: 904078 Take 2 Tablet(s) Oral BID as needed 06/18/20 023 Inactive Excedrin Extra Strength 250 mg-250 mg-65 mg tablet RxNorm: 822685 Take 2 Tablet(s) Oral QD as needed 06/18/20 Inactive donepezil 10 mg tablet RxNorm: 636137 Take 1 Tablet(s) Oral QD 06/04/20 024 Inactive risperidone 1 mg tablet RxNorm: 281286 Take 1 Tablet(s) Oral BID 06/04/20 023 Inactive quetiapine 25 mg tablet RxNorm: 883994 Take 1 Tablet(s) Oral BID as needed 06/04/20 023 Inactive trazodone 50 mg tablet RxNorm: 145282 Take 1 Tablet(s) Oral QHS every night at bedtime 06/04/20 023 Inactive risperidone 1 mg tablet RxNorm: 678134 Take 1 Tablet(s) Oral BID as needed 06/04/20 023 Inactive divalproex 125 mg capsule,delayed release sprinkle RxNorm: 0970155 TAKE 4 CAPSULES (500MG) BY MOUTH AT BEDTIME 06/03/20 024 Inactive Please authorize quantity 90 day supply with PRN refills for assisted living patient. Their cycle restarts 06/14/23. Thank you! sertraline 50 mg tablet RxNorm: 298726 Take 1 Tablet(s) Oral QD 06/03/20 024 Inactive Please authorize quantity 90 day supply with PRN refills for assisted living patient. Their cycle restarts 06/14/23. Thank you! Senexon-S 8.6 mg-50 mg tablet RxNorm: 8537479 Take 1 Tablet(s) Oral BID 06/03/20 023 Inactive Please authorize quantity 90 day supply with PRN refills for assisted living patient. Their cycle restarts 06/14/23. Thank you! memantine 5 mg tablet RxNorm: 856274 TAKE ONE-HALF TABLET (2.5MG) BY MOUTH TWICE DAILY 06/03/20 023 Inactive Please authorize quantity 90 day supply with PRN refills for assisted living patient. Their cycle restarts 06/14/23. Thank you! naproxen 500 mg tablet RxNorm: 669959 Take 1 Tablet(s) Oral BID 01/23/20 23 023 Inactive naproxen 500 mg tablet RxNorm: 744320 Take 1 Tablet(s) Oral BID 01/23/20 23 023 Inactive naproxen 500 mg tablet RxNorm: 646803 Take 1 Tablet(s) Oral BID 01/23/20 23 023 Inactive mirtazapine 15 mg tablet RxNorm: 841709 Take 1 Tablet(s) Oral HS at bed time 01/01/20 23 023 Inactive CYCLE FILL REQUEST FOR CYCLE THAT STARTS 01/04/2023 escitalopram 10 mg tablet RxNorm: 023727 Take 1 Tablet(s) Oral QAM every morning 12/14/19 023 Inactive Cycle refill request. Cycle restarts (01/04/23). cholecalciferol (vitamin D3) 50 mcg (2,000 unit) tablet RxNorm: 856421 Take 1 Tablet(s) Oral QAM every morning 12/14/19 023 Inactive Cycle refill request. Cycle restarts (01/04/23). melatonin 10 mg sublingual tablet RxNorm: 7273671 TAKE 1 TABLET BY MOUTH AT BEDTIME NOTE DOSAGE/STRENGTH* 12/14/19 023 Inactive Cycle refill request. Cycle restarts (01/04/23). rivastigmine 1.5 mg capsule RxNorm: 209340 Take 1 Capsule(s) Oral BID 12/14/19 23 023 Inactive Cycle refill request. Cycle restarts (01/04/23). quetiapine 100 mg tablet RxNorm: 827957 Take 1 Tablet(s) Oral HS at bed time 12/14/19 23 023 Inactive Cycle refill request. Cycle restarts (01/04/23). levothyroxine 50 mcg tablet RxNorm: 436806 TAKE 1 TABLET BY MOUTH ONCE DAILY BEFORE BREAKFAST 12/14/19 23 023 Inactive Cycle refill request. Cycle restarts (01/04/23). amlodipine 5 mg tablet RxNorm: 922433 Take 1 Tablet(s) Oral QAM every morning 12/14/19 23 023 Inactive Cycle refill request. Cycle restarts (01/04/23). buspirone 15 mg tablet RxNorm: 688319 Take 1 Tablet(s) Oral BID 12/14/19 23 023 Inactive Cycle refill request. Cycle restarts (01/04/23). amitriptyline 10 mg tablet RxNorm: 557561 Take 1 Tablet(s) Oral HS at bed time 12/14/19 23 023 Inactive Cycle refill request. Cycle restarts (01/04/23). levofloxacin 500 mg tablet RxNorm: 948656 Take 1 Tablet(s) Oral QD 11/24/19 23 023 Inactive levofloxacin 500 mg tablet RxNorm: 603097 Take 1 Tablet(s) Oral QD 11/24/19 23 023 Inactive levothyroxine 50 mcg tablet RxNorm: 376821 Take 1 Tablet(s) Oral QD before Breakfast 11/18/19 23 023 Inactive amitriptyline 10 mg tablet RxNorm: 571298 Take 1 Tablet(s) Oral QHS every night at bedtime 11/18/19 023 Inactive acetaminophen 500 mg tablet RxNorm: 848844 2 Tablet(s) Oral TID as needed 11/18/19 23 023 Inactive amlodipine 5 mg tablet RxNorm: 345928 Take 1 Tablet(s) Oral QAM every morning 11/18/19 23 023 Inactive melatonin 5 mg tablet RxNorm: 587007 Give 1 Tablet(s) Oral QHS every night at bedtime 11/18/19 23 023 Inactive buspirone 15 mg tablet RxNorm: 485354 Take 1 Tablet(s) Oral BID 11/18/19 23 023 Inactive Seroquel 25 mg tablet RxNorm: 037432 Take 1 Tablet(s) Oral QHS every night at bedtime 11/18/19 23 023 Inactive cholecalciferol (vitamin D3) 50 mcg (2,000 unit) tablet RxNorm: 164900 Take 1 Tablet(s) Oral QD 11/18/19 023 Inactive rivastigmine 1.5 mg capsule RxNorm: 512650 Take 2 Capsule(s) Oral BID 11/18/19 023 Inactive mirtazapine 15 mg tablet RxNorm: 889163 Take 1 Tablet(s) Oral QHS every night at bedtime 11/18/19 023 Inactive aspirin-acetaminoph en-caffeine 250 mg-250 mg-65 mg tablet RxNorm: 759168 Take 2 Tablet(s) Oral QD as needed 11/18/19 023 Inactive escitalopram 10 mg tablet RxNorm: 076704 Take 1 Tablet(s) Oral QD 11/18/19 023 Inactive Medication Administered No Medication Administered data Immunizations Vaccine Codes Dose Date Status Influenza CVX: 205 1.0 04/06/2022 Covid-19 ([employer] mR NA, LNP-S, PF, 30 mcg/0.3 mL [...] 33 1.0 09/04/2000 Vital Signs Date Vital 06/25/2023 Blood Pressure 1: 134/73 Code: 8480-6 Heart Rate 1: 69 bpm Code: 8867-4 Respiratory Rate: 18 bpm Temperature: 36.1 (C) / 97.0 (F) Weight: 170 lbs 10 oz Code: 3141-9 Reason For Visit No Reason For Visit data Encounters Encounter Performer Location Location Address Codes Date ([address]380) Home or Residence Visit Est Pt - Moderate Level, 40 mins Diagnosis: Dementia[ICD10: F03.90] Diagnosis: HTN (hypertension)[IC D10: I10] Diagnosis: Insomnia[ICD10: G47.00] Diagnosis: Hypothyroid[ICD10 : E03.9] Aida Sr [facility] at [address] [address] CPT-4: 73759 06/25/2023 Plan of Care Planned Activity Notes Codes Status Date Patient Education: Patient Medication Summary Completed 06/25/2023 Patient Education: Influenza Complet ed 06/25/2023 Patient Education: Dementia Complete d 06/25/2023 Appointment: Bam Frey: [address] [place], [place] [phone] SDV 01/22/2023 Appointment: Aida Sr WPtel: [address] [place], [place] [phone] NPAWV 11/20/2022 Referral: General Psychiatrist Referral Patient/Family Scheduling Appointment Referral: VIA Orthopedics- I n [facility]its [facility] [address] [facility] [facility] [id number] Referral Order Note Incomplete Instructions Comment Date Elderly female residing in [facility] assisted living at [facility] in [place]. PMHx: dementia, cluster B personality traits, depression, hypothyroidism, HTN, anxiety, suicidal ideationsPOLST: FULL CODEFred Anatoly-spouse, Fidm: November/ham-therapist: weekly calls usually on -1:1 visits 3 times weekly 01/28/2024 Hypothyroid Levothyroxine 50mcg qd. Will check TSH. Monitor for fatigue, increased sensitivity to cold, constipation, irritability, weakness, muscle aches or stiffness, decreased HR, hoarse voice and enlarged thyroid. Dementia Aricept 10mg qhs, namenda 2.5mg BID. Appreciated BHI. Follow up with psych as directed. Gradual progressive worsening as anticipated with disease course. Appropriate for memory care. Monitor need for increased services, reassess at f/u in 1 month. Insomnia Intermittent insomnia with mild daytime tiredness. Will decrease trazodone to 50mg qHS PRN. Monitor for difficulty sleeping, irritation, increased behaviors & daytime tiredness. HTN (hypertension) BP 134/73, controlled. Norvasc 5mg qd. Will check CBC, CMP. Care plan: Routinely monitor blood pressures to follow trends. Goal is less than 150/90. Watch for side effects to medications and for over treatment, which can cause hypotension. . 06/25/2023
--- OUTSIDE RECORDS SUMMARY | 2024-09-10 16:34 | XMS_ITS | CCD ---
Author Name Aida Sr CNP Address [address] [facility] [address] [place] [address] Phone Organization [facility] Phone Care Team Providers Care Director Of Recruitment And Admissions Name Role Phone Orin RADHAAida Primary Care Provider Unavaila ble Orin RADHAAida Chronic Care Management Unavai lable Summary Purpose DataExchange Insurance Providers Payer name Policy type / Coverage type Covered democrat ID Effective Begin Date Effective End Date [employer] Commercial Insurance [id number] Unknown Family history Runs in the family Diagnosis Age At Onset No Known Diseases N/A Social History Social History Element Codes Description Effec tive Dates Marital status Unknown 01/28/2024 Living arrangements Unknown Memory Care 01/28/[address]: 074294169 Never smoker 01/[address]: 801185167 No Alcohol Consum ption 01/28/2024 Sexually Active? [...] Fill Instructions risperidone 0.5 mg tablet RxNorm: 094227 Take 1 Tablet(s) Oral QAM every morning 03/14/20 24 024 Inactive risperidone 1 mg tablet RxNorm: 920999 Take 1 Tablet(s) Oral HS at bed time 02/22/20 24 024 Inactive acetaminophen 500 mg tablet RxNorm: 573044 Take 2 Tablet(s) Oral TID as needed 02/22/20 24 No Stop Date Active acetaminophen 500 mg tablet RxNorm: 167405 Take 2 Tablet(s) Oral TID as needed 02/22/20 24 024 Inactive sertraline 100 mg tablet RxNorm: 361993 Take 1 Tablet(s) Oral QD Take w/ 50mg tablet 01/27/20 24 025 Active sertraline 50 mg tablet RxNorm: 863567 Take 1 Tablet(s) Oral QD Take w/ 100mg tablet 01/27/20 24 025 Active acetaminophen 500 mg tablet RxNorm: 181098 Take 2 Tablet(s) Oral TID as needed 01/27/20 24 024 Inactive amlodipine 5 mg tablet RxNorm: 071157 Take 1 Tablet(s) Oral QAM every morning 01/09/20 24 048 Active REFILL REQUEST FOR CYCLE THAT BEGINS 01/30, THANK YOU! levothyroxine 50 mcg tablet RxNorm: 919674 Take 1 Tablet(s) Oral QD BEFORE BREAKFAST 01/09/20 24 048 Active REFILL REQUEST FOR CYCLE THAT BEGINS 01/30, THANK YOU! cholecalciferol (vitamin D3) 50 mcg (2,000 unit) tablet RxNorm: 773292 Take 1 Tablet(s) Oral QAM every morning 01/09/20 24 048 Active REFILL REQUEST FOR CYCLE THAT BEGINS 01/30, THANK YOU! risperidone 0.5 mg tablet RxNorm: 876644 Take 1 Tablet(s) Oral BID 01/09/20 24 024 Inactive REFILL REQUEST FOR CYCLE THAT BEGINS 01/30, THANK YOU! sertraline 50 mg tablet RxNorm: 515164 TAKE 1 TABLET BY MOUTH ONCE DAILY. TAKE ALONG WITH 100 MG TABLET DAILY FOR A TOTAL DOSE OF 150 MG 01/09/20 24 024 Inactive REFILL REQUEST FOR CYCLE THAT BEGINS 01/30, THANK YOU! risperidone 0.5 mg tablet RxNorm: 485074 Take 1 Tablet(s) Oral BID 01/07/20 24 024 Inactive levofloxacin 500 mg tablet RxNorm: 439234 Take 1 Tablet(s) Oral QD 12/31/19 24 024 Inactive acetaminophen 500 mg tablet RxNorm: 623729 Take 2 Tablet(s) Oral TID 12/31/19 24 024 Inactive levofloxacin 500 mg tablet RxNorm: 117489 Take 1 Tablet(s) Oral QD 12/31/19 24 024 Inactive divalproex ER 250 mg tablet,extended release 24 hr RxNorm: 5571091 TAKE 1 TABLET BY MOUTH AT BEDTIME HAZARDOUS DRUG-DOUBLE GLOVE 10/21/19 24 048 Active CYCLE FILL REFILL REQUEST FOR CYCLE FILL THAT STARTS 11/08/2023. risperidone 1 mg tablet RxNorm: 090064 Take 1 Tablet(s) Oral BID 10/21/19 24 024 Inactive CYCLE FILL REFILL REQUEST FOR CYCLE FILL THAT STARTS 11/08/2023. Senexon-S 8.6 mg-50 mg tablet RxNorm: 6489019 Take 1 Tablet(s) Oral BID as needed 09/13/19 24 025 Inactive acetaminophen 500 mg tablet RxNorm: 308226 Take 2 Tablet(s) Oral BID as needed 09/13/19 24 024 Inactive Tylenol Extra Strength 500 mg tablet RxNorm: 218934 Take 2 Tablet(s) Oral BID as needed 09/13/19 24 024 Inactive trazodone 50 mg tablet RxNorm: 008999 Take 1 Tablet(s) Oral QHS every night at bedtime 09/13/19 24 024 Inactive quetiapine 100 mg tablet RxNorm: 099551 Take 1.5 Tablet(s) Oral HS at bed time 09/13/19 24 024 Inactive sertraline 100 mg tablet RxNorm: 235967 Take 1.5 Tablet(s) Oral QD 09/13/19 24 024 Inactive Pain Reliever Plus 250 mg-250 mg-65 mg tablet RxNorm: 868691 Take 2 Tablet(s) Oral QD as needed 09/13/19 24 024 Inactive sertraline 100 mg tablet RxNorm: 095719 Take 1 Tablet(s) Oral QD 07/29/19 024 Inactive Please authorize cycle refill. Thanks. acetaminophen 500 mg tablet RxNorm: 230394 Take 2 Tablet(s) Oral BID as needed 07/20/19 Inactive acetaminophen 500 mg tablet RxNorm: 753880 Take 2 Tablet(s) Oral BID as needed 07/20/19 024 Inactive sertraline 100 mg tablet RxNorm: 987423 Take 1 Tablet(s) Oral QD 07/13/19 Inactive donepezil 5 mg tablet RxNorm: 960781 TAKE ONE-HALF TABLET (2.5MG) BY MOUTH ONCE DAILY 07/05/20 023 Inactive Cycle refill request. Cycle restarts (07/19/23). risperidone 1 mg tablet RxNorm: 782702 Take 1 Tablet(s) Oral HS at bed time 06/25/20 024 Inactive trazodone 50 mg tablet RxNorm: 774609 Take 1 Tablet(s) Oral QHS every night at bedtime as needed 06/25/20 024 Inactive quetiapine 25 mg tablet RxNorm: 714747 Take 1 Tablet(s) Oral Q4H every four hours as needed 06/25/20 23 024 Inactive Senna-S 8.6 mg-50 mg tablet RxNorm: 191461 Take 1 Tablet(s) Oral BID as needed 06/25/20 23 023 Inactive trazodone 50 mg tablet RxNorm: 713715 Take 1 Tablet(s) Oral QHS every night at bedtime as needed 06/25/20 23 023 Inactive Senna-S 8.6 mg-50 mg tablet RxNorm: 253355 Take 1 Tablet(s) Oral BID as needed 06/25/20 23 024 Inactive acetaminophen 500 mg tablet RxNorm: 317686 Take 2 Tablet(s) Oral BID as needed 06/18/20 23 024 Inactive acetaminophen 500 mg tablet RxNorm: 214255 Take 2 Tablet(s) Oral BID as needed 06/18/20 023 Inactive Excedrin Extra Strength 250 mg-250 mg-65 mg tablet RxNorm: 568131 Take 2 Tablet(s) Oral QD as needed 06/18/20 023 Inactive Excedrin Extra Strength 250 mg-250 mg-65 mg tablet RxNorm: 363508 Take 2 Tablet(s) Oral QD as needed 06/18/20 024 Inactive risperidone 1 mg tablet RxNorm: 850609 Take 1 Tablet(s) Oral BID 06/04/20 023 Inactive quetiapine 25 mg tablet RxNorm: 703933 Take 1 Tablet(s) Oral BID as needed 06/04/20 023 Inactive trazodone 50 mg tablet RxNorm: 596015 Take 1 Tablet(s) Oral QHS every night at bedtime 06/04/20 023 Inactive donepezil 10 mg tablet RxNorm: 791002 Take 1 Tablet(s) Oral QD 06/04/20 024 Inactive risperidone 1 mg tablet RxNorm: 614045 Take 1 Tablet(s) Oral BID as needed 06/04/20 023 Inactive Senexon-S 8.6 mg-50 mg tablet RxNorm: 9705476 Take 1 Tablet(s) Oral BID 06/03/20 023 Inactive Please authorize quantity 90 day supply with PRN refills for assisted living patient. Their cycle restarts 06/14/23. Thank you! memantine 5 mg tablet RxNorm: 039337 TAKE ONE-HALF TABLET (2.5MG) BY MOUTH TWICE DAILY 06/03/20 023 Inactive Please authorize quantity 90 day supply with PRN refills for assisted living patient. Their cycle restarts 06/14/23. Thank you! divalproex 125 mg capsule,delayed release sprinkle RxNorm: 2667986 TAKE 4 CAPSULES (500MG) BY MOUTH AT BEDTIME 06/03/20 024 Inactive Please authorize quantity 90 day supply with PRN refills for assisted living patient. Their cycle restarts 06/14/23. Thank you! sertraline 50 mg tablet RxNorm: 318888 Take 1 Tablet(s) Oral QD 06/03/20 23 024 Inactive Please authorize quantity 90 day supply with PRN refills for assisted living patient. Their cycle restarts 06/14/23. Thank you! naproxen 500 mg tablet RxNorm: 594705 Take 1 Tablet(s) Oral BID 01/23/20 23 023 Inactive naproxen 500 mg tablet RxNorm: 777569 Take 1 Tablet(s) Oral BID 01/23/20 023 Inactive naproxen 500 mg tablet RxNorm: 911651 Take 1 Tablet(s) Oral BID 01/23/20 023 Inactive mirtazapine 15 mg tablet RxNorm: 310735 Take 1 Tablet(s) Oral HS at bed time 01/01/20 023 Inactive CYCLE FILL REQUEST FOR CYCLE THAT STARTS 01/04/2023 escitalopram 10 mg tablet RxNorm: 254725 Take 1 Tablet(s) Oral QAM every morning 12/14/19 023 Inactive Cycle refill request. Cycle restarts (01/04/23). cholecalciferol (vitamin D3) 50 mcg (2,000 unit) tablet RxNorm: 260645 Take 1 Tablet(s) Oral QAM every morning 12/14/19 023 Inactive Cycle refill request. Cycle restarts (01/04/23). melatonin 10 mg sublingual tablet RxNorm: 3865004 TAKE 1 TABLET BY MOUTH AT BEDTIME NOTE DOSAGE/STRENGTH* 12/14/19 023 Inactive Cycle refill request. Cycle restarts (01/04/23). rivastigmine 1.5 mg capsule RxNorm: 507843 Take 1 Capsule(s) Oral BID 12/14/19 023 Inactive Cycle refill request. Cycle restarts (01/04/23). quetiapine 100 mg tablet RxNorm: 800563 Take 1 Tablet(s) Oral HS at bed time 12/14/19 023 Inactive Cycle refill request. Cycle restarts (01/04/23). levothyroxine 50 mcg tablet RxNorm: 573855 TAKE 1 TABLET BY MOUTH ONCE DAILY BEFORE BREAKFAST 12/14/19 23 023 Inactive Cycle refill request. Cycle restarts (01/04/23). amlodipine 5 mg tablet RxNorm: 453183 Take 1 Tablet(s) Oral QAM every morning 12/14/19 23 023 Inactive Cycle refill request. Cycle restarts (01/04/23). buspirone 15 mg tablet RxNorm: 822566 Take 1 Tablet(s) Oral BID 12/14/19 23 023 Inactive Cycle refill request. Cycle restarts (01/04/23). amitriptyline 10 mg tablet RxNorm: 603021 Take 1 Tablet(s) Oral HS at bed time 12/14/19 23 023 Inactive Cycle refill request. Cycle restarts (01/04/23). levofloxacin 500 mg tablet RxNorm: 565531 Take 1 Tablet(s) Oral QD 11/24/19 23 023 Inactive levofloxacin 500 mg tablet RxNorm: 415497 Take 1 Tablet(s) Oral QD 11/24/19 23 023 Inactive levothyroxine 50 mcg tablet RxNorm: 136074 Take 1 Tablet(s) Oral QD before Breakfast 11/18/19 23 023 Inactive amitriptyline 10 mg tablet RxNorm: 862559 Take 1 Tablet(s) Oral QHS every night at bedtime 11/18/19 23 023 Inactive acetaminophen 500 mg tablet RxNorm: 987741 2 Tablet(s) Oral TID as needed 11/18/19 23 023 Inactive amlodipine 5 mg tablet RxNorm: 943146 Take 1 Tablet(s) Oral QAM every morning 11/18/19 23 023 Inactive melatonin 5 mg tablet RxNorm: 267525 Give 1 Tablet(s) Oral QHS every night at bedtime 11/18/19 23 023 Inactive buspirone 15 mg tablet RxNorm: 724697 Take 1 Tablet(s) Oral BID 11/18/19 023 Inactive Seroquel 25 mg tablet RxNorm: 511763 Take 1 Tablet(s) Oral QHS every night at bedtime 11/18/19 023 Inactive cholecalciferol (vitamin D3) 50 mcg (2,000 unit) tablet RxNorm: 478977 Take 1 Tablet(s) Oral QD 11/18/19 023 Inactive rivastigmine 1.5 mg capsule RxNorm: 285929 Take 2 Capsule(s) Oral BID 11/18/19 023 Inactive mirtazapine 15 mg tablet RxNorm: 281149 Take 1 Tablet(s) Oral QHS every night at bedtime 11/18/19 023 Inactive aspirin-acetaminoph en-caffeine 250 mg-250 mg-65 mg tablet RxNorm: 157120 Take 2 Tablet(s) Oral QD as needed 11/18/19 023 Inactive escitalopram 10 mg tablet RxNorm: 616384 Take 1 Tablet(s) Oral QD 11/18/19 023 Inactive Medication Administered No Medication Administered data Immunizations Vaccine Codes Dose Date Status Influenza CVX: 205 1.0 04/06/2022 Covid-19 ([employer] mR NA, LNP-S, PF, 30 mcg/0.3 mL [...] Code Result Date Service Location Urine Culture 85211 URINE CULTURE 58172-3 SEE RESU LTS BELOW 04/20/20 Unknown UA with Microscopic 81176 COLOR [place] 04/18/20 Unknown UA with Microscopic 88712 Appearance Cloudy 04/18/20 Unknown UA with Microscopic 98603 GLUCOSE, URINE Negative mg/dL 04/18/20 Unknown UA with Microscopic 59579 BILIRUBIN, URINE Negative 04/18/20 Unknown UA with Microscopic 07945 Ketones Urine Negative mg/dL 04/18/20 Unknown UA with Microscopic 62368 Specific [place] Urine 1.013 04/18/20 Unknown UA with Microscopic 57388 BLOOD, URINE Small 04/18/20 Unknown UA with Microscopic 09252 pH Urine 7.5 04/18/20 Unknown UA with Microscopic 36539 Protein urine 50 mg/dL 04/18/20 Unknown UA with Microscopic 35617 UROBILINOGEN IRIS Normal mg/dL 04/18/20 Unknown UA with Microscopic 07046 Nitrites Negative 04/18/20 Unknown UA with Microscopic 80687 LEUK ESTERASE Large 04/18/20 Unknown UA with Microscopic 39138 Mucus Urine Present /LPF 04/18/20 Unknown UA with Microscopic 42729 RBC Urine 17 /HPF 04/18/20 Unknown UA with Microscopic 86268 SQUAMOUS EPITHELIAL 3 /HPF 04/18/20 Unknown UA with Microscopic 08563 WBC Urine 00694-0 >182 /HPF 04/18/20 Unknown Functional Status Functional / Cognitive Codes [...] Codes Status Date Appointment: Aida Sr WPtel: [address] [place], [place] [phone] [place] F/U 12/31/2023 Appointment: Aida Sr WPtel: [address] [place], [place] [phone] [place] F/U 09/17/2023 Appointment: Aida Sr WPtel: [address] [place], [place] [phone] [place] F/U 07/23/2023 Appointment: Aida Sr WPtel: [address] [place], [place] [phone] [place] F/U 06/25/2023 Appointment: Bam Frey: [address] [place], [place] [phone] [place] SDV 01/22/2023 Appointment: Aida Sr WPtel: [address] [place], [place] [phone] NPAWV 11/20/2022 Referral: General Psychiatrist Referral Patient/Family Scheduling Appointment Referral: VIA Orthopedics- I n Home Visits WPtel: [address] [id number] Referral Order Note Incomplete Instructions Comment Date Elderly female residing in [facility] assisted living at [facility]. PMHx: dementia, cluster B personality traits, depression, hypothyroidism, HTN, anxiety, suicidal ideationsPOLST: FULL CODEFred Anatoly-spouse, Qnvu: November/-therapist: weekly calls usually on :1 visits 3 times weekly 01/28/2024
--- OUTSIDE RECORDS SUMMARY | 2024-09-10 16:34 | XMS_ITS | CCD ---
Author Organization Unknown Care Team Providers Care Car Examiner Name Role Phone Orin GARCIA, Aida Primary Care Provider Unavaila ble OrinAida moyer CNP Chronic Care Management Unavai lable Summary Purpose DataExchange Insurance Providers Payer name Policy type / Coverage type Covered republican ID Effective Begin Date Effective End Date [employer] Commercial Insurance [id number] Unknown Family History Family History data not [...] 250 mg tablet,extended release 24 hr RxNorm: 7311940 TAKE 1 TABLET BY MOUTH AT BEDTIME HAZARDOUS DRUG-DOUBLE GLOVE 10/21/19 24 048 Active CYCLE FILL REFILL REQUEST FOR CYCLE FILL THAT STARTS 11/08/2023. risperidone 1 mg tablet RxNorm: 949380 Take 1 Tablet(s) Oral BID 10/21/19 24 024 Inactive CYCLE FILL REFILL REQUEST FOR CYCLE FILL THAT STARTS 11/08/2023. Tylenol Extra Strength 500 mg tablet RxNorm: 164934 Take 2 Tablet(s) Oral BID as needed 09/13/19 24 024 Inactive trazodone 50 mg tablet RxNorm: 885091 Take 1 Tablet(s) Oral QHS every night at bedtime 09/13/19 24 024 Inactive quetiapine 100 mg tablet RxNorm: 086121 Take 1.5 Tablet(s) Oral HS at bed time 09/13/19 24 024 Inactive Senexon-S 8.6 mg-50 mg tablet RxNorm: 4783436 Take 1 Tablet(s) Oral BID as needed 09/13/19 24 025 Inactive sertraline 100 mg tablet RxNorm: 888957 Take 1.5 Tablet(s) Oral QD 09/13/19 24 024 Inactive Pain Reliever Plus 250 mg-250 mg-65 mg tablet RxNorm: 772694 Take 2 Tablet(s) Oral QD as needed 09/13/19 24 Inactive acetaminophen 500 mg tablet RxNorm: 551555 Take 2 Tablet(s) Oral BID as needed 09/13/19 24 024 Inactive sertraline 100 mg tablet RxNorm: 966553 Take 1 Tablet(s) Oral QD 07/29/19 24 024 Inactive Please authorize cycle refill. Thanks. acetaminophen 500 mg tablet RxNorm: 495650 Take 2 Tablet(s) Oral BID as needed 07/20/19 24 024 Inactive acetaminophen 500 mg tablet RxNorm: 298838 Take 2 Tablet(s) Oral BID as needed 07/20/19 24 Inactive sertraline 100 mg tablet RxNorm: 463468 Take 1 Tablet(s) Oral QD 07/13/19 24 024 Inactive donepezil 5 mg tablet RxNorm: 902529 TAKE ONE-HALF TABLET (2.5MG) BY MOUTH ONCE DAILY 07/05/20 23 023 Inactive Cycle refill request. Cycle restarts (07/19/23). risperidone 1 mg tablet RxNorm: 336421 Take 1 Tablet(s) Oral HS at bed time 06/25/20 23 024 Inactive quetiapine 25 mg tablet RxNorm: 248012 Take 1 Tablet(s) Oral Q4H every four hours as needed 06/25/20 23 024 Inactive trazodone 50 mg tablet RxNorm: 263733 Take 1 Tablet(s) Oral QHS every night at bedtime as needed 06/25/20 23 024 Inactive Senna-S 8.6 mg-50 mg tablet RxNorm: 806600 Take 1 Tablet(s) Oral BID as needed 06/25/20 23 023 Inactive trazodone 50 mg tablet RxNorm: 380524 Take 1 Tablet(s) Oral QHS every night at bedtime as needed 06/25/20 23 023 Inactive Senna-S 8.6 mg-50 mg tablet RxNorm: 827606 Take 1 Tablet(s) Oral BID as needed 06/25/20 024 Inactive acetaminophen 500 mg tablet RxNorm: 560406 Take 2 Tablet(s) Oral BID as needed 06/18/20 024 Inactive acetaminophen 500 mg tablet RxNorm: 409132 Take 2 Tablet(s) Oral BID as needed 06/18/20 023 Inactive Excedrin Extra Strength 250 mg-250 mg-65 mg tablet RxNorm: 141107 Take 2 Tablet(s) Oral QD as needed 06/18/20 023 Inactive Excedrin Extra Strength 250 mg-250 mg-65 mg tablet RxNorm: 614400 Take 2 Tablet(s) Oral QD as needed 06/18/20 024 Inactive risperidone 1 mg tablet RxNorm: 888866 Take 1 Tablet(s) Oral BID 06/04/20 023 Inactive quetiapine 25 mg tablet RxNorm: 359892 Take 1 Tablet(s) Oral BID as needed 06/04/20 023 Inactive trazodone 50 mg tablet RxNorm: 446041 Take 1 Tablet(s) Oral QHS every night at bedtime 06/04/20 023 Inactive donepezil 10 mg tablet RxNorm: 410653 Take 1 Tablet(s) Oral QD 06/04/20 024 Inactive risperidone 1 mg tablet RxNorm: 150414 Take 1 Tablet(s) Oral BID as needed 06/04/20 023 Inactive Senexon-S 8.6 mg-50 mg tablet RxNorm: 5224416 Take 1 Tablet(s) Oral BID 06/03/20 023 Inactive Please authorize quantity 90 day supply with PRN refills for assisted living patient. Their cycle restarts 06/14/23. Thank you! memantine 5 mg tablet RxNorm: 452361 TAKE ONE-HALF TABLET (2.5MG) BY MOUTH TWICE DAILY 06/03/20 023 Inactive Please authorize quantity 90 day supply with PRN refills for assisted living patient. Their cycle restarts 06/14/23. Thank you! divalproex 125 mg capsule,delayed release sprinkle RxNorm: 8146223 TAKE 4 CAPSULES (500MG) BY MOUTH AT BEDTIME 06/03/20 024 Inactive Please authorize quantity 90 day supply with PRN refills for assisted living patient. Their cycle restarts 06/14/23. Thank you! sertraline 50 mg tablet RxNorm: 806248 Take 1 Tablet(s) Oral QD 06/03/20 024 Inactive Please authorize quantity 90 day supply with PRN refills for assisted living patient. Their cycle restarts 06/14/23. Thank you! naproxen 500 mg tablet RxNorm: 696247 Take 1 Tablet(s) Oral BID 01/23/20 23 023 Inactive naproxen 500 mg tablet RxNorm: 326754 Take 1 Tablet(s) Oral BID 01/23/20 23 023 Inactive naproxen 500 mg tablet RxNorm: 458463 Take 1 Tablet(s) Oral BID 01/23/20 023 Inactive mirtazapine 15 mg tablet RxNorm: 836185 Take 1 Tablet(s) Oral HS at bed time 01/01/20 23 023 Inactive CYCLE FILL REQUEST FOR CYCLE THAT STARTS 01/04/2023 escitalopram 10 mg tablet RxNorm: 579565 Take 1 Tablet(s) Oral QAM every morning 12/14/19 23 023 Inactive Cycle refill request. Cycle restarts (01/04/23). cholecalciferol (vitamin D3) 50 mcg (2,000 unit) tablet RxNorm: 371678 Take 1 Tablet(s) Oral QAM every morning 12/14/19 23 023 Inactive Cycle refill request. Cycle restarts (01/04/23). melatonin 10 mg sublingual tablet RxNorm: 7326155 TAKE 1 TABLET BY MOUTH AT BEDTIME NOTE DOSAGE/STRENGTH* 12/14/19 23 023 Inactive Cycle refill request. Cycle restarts (01/04/23). rivastigmine 1.5 mg capsule RxNorm: 039156 Take 1 Capsule(s) Oral BID 12/14/19 23 023 Inactive Cycle refill request. Cycle restarts (01/04/23). quetiapine 100 mg tablet RxNorm: 426303 Take 1 Tablet(s) Oral HS at bed time 12/14/19 23 023 Inactive Cycle refill request. Cycle restarts (01/04/23). levothyroxine 50 mcg tablet RxNorm: 465440 TAKE 1 TABLET BY MOUTH ONCE DAILY BEFORE BREAKFAST 12/14/19 23 023 Inactive Cycle refill request. Cycle restarts (01/04/23). amlodipine 5 mg tablet RxNorm: 199338 Take 1 Tablet(s) Oral QAM every morning 12/14/19 23 023 Inactive Cycle refill request. Cycle restarts (01/04/23). buspirone 15 mg tablet RxNorm: 487991 Take 1 Tablet(s) Oral BID 12/14/19 23 023 Inactive Cycle refill request. Cycle restarts (01/04/23). amitriptyline 10 mg tablet RxNorm: 109554 Take 1 Tablet(s) Oral HS at bed time 12/14/19 23 023 Inactive Cycle refill request. Cycle restarts (01/04/23). levofloxacin 500 mg tablet RxNorm: 452476 Take 1 Tablet(s) Oral QD 11/24/19 23 023 Inactive levofloxacin 500 mg tablet RxNorm: 480653 Take 1 Tablet(s) Oral QD 11/24/19 23 023 Inactive levothyroxine 50 mcg tablet RxNorm: 849114 Take 1 Tablet(s) Oral QD before Breakfast 11/18/19 23 023 Inactive amitriptyline 10 mg tablet RxNorm: 068912 Take 1 Tablet(s) Oral QHS every night at bedtime 11/18/19 23 023 Inactive acetaminophen 500 mg tablet RxNorm: 208801 2 Tablet(s) Oral TID as needed 11/18/19 23 023 Inactive amlodipine 5 mg tablet RxNorm: 298449 Take 1 Tablet(s) Oral QAM every morning 11/18/19 23 023 Inactive melatonin 5 mg tablet RxNorm: 073003 Give 1 Tablet(s) Oral QHS every night at bedtime 11/18/19 023 Inactive buspirone 15 mg tablet RxNorm: 074010 Take 1 Tablet(s) Oral BID 11/18/19 023 Inactive Seroquel 25 mg tablet RxNorm: 554609 Take 1 Tablet(s) Oral QHS every night at bedtime 11/18/19 023 Inactive cholecalciferol (vitamin D3) 50 mcg (2,000 unit) tablet RxNorm: 042107 Take 1 Tablet(s) Oral QD 11/18/19 023 Inactive rivastigmine 1.5 mg capsule RxNorm: 592623 Take 2 Capsule(s) Oral BID 11/18/19 023 Inactive mirtazapine 15 mg tablet RxNorm: 361667 Take 1 Tablet(s) Oral QHS every night at bedtime 11/18/19 023 Inactive aspirin-acetaminoph en-caffeine 250 mg-250 mg-65 mg tablet RxNorm: 030444 Take 2 Tablet(s) Oral QD as needed 11/18/19 023 Inactive escitalopram 10 mg tablet RxNorm: 982349 Take 1 Tablet(s) Oral QD 11/18/19 023 Inactive Medication Administered No Medication Administered data Immunizations Vaccine Codes Dose Date Status Influenza CVX: 205 1.0 04/06/2022 Covid-19 ([employer] mR NA, LNP-S, PF, 30 mcg/0.3 mL [...] WPtel: [address], [address] [id number] Referral Order Note Incomplete Instructions Comment Date Elderly female residing in [facility] assisted living at [facility]. PMHx: dementia, cluster B personality traits, depression, hypothyroidism, HTN, anxiety, suicidal ideationsPOLST: FULL CODEFred Anatoly-spouse, Gylc: November/-therapist: weekly calls usually on :1 visits 3 times weekly 01/28/2024
--- OUTSIDE RECORDS SUMMARY | 2024-09-10 16:34 | XMS_ITS | CCD ---
Author Organization Unknown Care Team Providers Care Ladle Builder Name Role Phone Aida Sr CNP Primary Care Provider Unavaila ble Aida Sr CNP Chronic Care Management Unavai lable Summary Purpose DataExchange Insurance Providers Payer name Policy type / Coverage type Covered republican ID Effective Begin Date Effective End Date [employer] Commercial Insurance [id number] Unknown Family history Runs in the family Diagnosis Age At Onset No Known Diseases N/A Social History Social History Element Codes Description Effec tive Dates Marital status Unknown 01/28/2024 Living arrangements Unknown Memory Care 01/28/[address]: 208799108 Never smoker 01/[address]: 464452442 No Alcohol Consum ption 01/28/2024 Sexually Active? [...] Instructions Senexon-S 8.6 mg-50 mg tablet RxNorm: 5966751 Take 1 Tablet(s) Oral BID as needed 06/30/20 24 028 Active risperidone 1 mg tablet RxNorm: 190825 Take 1 Tablet(s) Oral BID 06/26/20 24 025 Active memantine 5 mg tablet RxNorm: 987362 TAKE ONE-HALF TABLET (2.5MG) BY MOUTH TWICE DAILY 06/23/20 24 049 Active REFILL REQUEST FOR CYCLE THAT BEGINS 07/17, THANK YOU risperidone 0.5 mg tablet RxNorm: 246154 Take 1 Tablet(s) Oral QAM every morning 03/14/20 24 024 Inactive acetaminophen 500 mg tablet RxNorm: 046785 Take 2 Tablet(s) Oral TID as needed 02/22/20 24 No Stop Date Active risperidone 1 mg tablet RxNorm: 295815 Take 1 Tablet(s) Oral HS at bed time 02/22/20 24 024 Inactive acetaminophen 500 mg tablet RxNorm: 612439 Take 2 Tablet(s) Oral TID as needed 02/22/20 24 024 Inactive sertraline 100 mg tablet RxNorm: 850451 Take 1 Tablet(s) Oral QD Take w/ 50mg tablet 01/27/20 24 025 Active sertraline 50 mg tablet RxNorm: 193042 Take 1 Tablet(s) Oral QD Take w/ 100mg tablet 01/27/20 24 025 Active acetaminophen 500 mg tablet RxNorm: 797262 Take 2 Tablet(s) Oral TID as needed 01/27/20 24 024 Inactive amlodipine 5 mg tablet RxNorm: 919602 Take 1 Tablet(s) Oral QAM every morning 01/09/20 24 048 Active REFILL REQUEST FOR CYCLE THAT BEGINS 01/30, THANK YOU! levothyroxine 50 mcg tablet RxNorm: 848550 Take 1 Tablet(s) Oral QD BEFORE BREAKFAST 01/09/20 24 048 Active REFILL REQUEST FOR CYCLE THAT BEGINS 01/30, THANK YOU! cholecalciferol (vitamin D3) 50 mcg (2,000 unit) tablet RxNorm: 026391 Take 1 Tablet(s) Oral QAM every morning 01/09/20 24 048 Active REFILL REQUEST FOR CYCLE THAT BEGINS 01/30, THANK YOU! risperidone 0.5 mg tablet RxNorm: 513999 Take 1 Tablet(s) Oral BID 01/09/20 24 024 Inactive REFILL REQUEST FOR CYCLE THAT BEGINS 01/30, THANK YOU! sertraline 50 mg tablet RxNorm: 831134 TAKE 1 TABLET BY MOUTH ONCE DAILY. TAKE ALONG WITH 100 MG TABLET DAILY FOR A TOTAL DOSE OF 150 MG 01/09/20 24 024 Inactive REFILL REQUEST FOR CYCLE THAT BEGINS 01/30, THANK YOU! risperidone 0.5 mg tablet RxNorm: 612855 Take 1 Tablet(s) Oral BID 01/07/20 24 024 Inactive levofloxacin 500 mg tablet RxNorm: 905861 Take 1 Tablet(s) Oral QD 12/31/19 24 024 Inactive acetaminophen 500 mg tablet RxNorm: 735188 Take 2 Tablet(s) Oral TID 12/31/19 24 024 Inactive levofloxacin 500 mg tablet RxNorm: 967657 Take 1 Tablet(s) Oral QD 12/31/19 24 024 Inactive divalproex ER 250 mg tablet,extended release 24 hr RxNorm: 2935545 TAKE 1 TABLET BY MOUTH AT BEDTIME HAZARDOUS DRUG-DOUBLE GLOVE 10/21/19 24 048 Active CYCLE FILL REFILL REQUEST FOR CYCLE FILL THAT STARTS 11/08/2023. risperidone 1 mg tablet RxNorm: 553485 Take 1 Tablet(s) Oral BID 10/21/19 24 024 Inactive CYCLE FILL REFILL REQUEST FOR CYCLE FILL THAT STARTS 11/08/2023. Senexon-S 8.6 mg-50 mg tablet RxNorm: 0807765 Take 1 Tablet(s) Oral BID as needed 09/13/19 24 025 Inactive acetaminophen 500 mg tablet RxNorm: 616986 Take 2 Tablet(s) Oral BID as needed 09/13/19 24 024 Inactive Tylenol Extra Strength 500 mg tablet RxNorm: 599528 Take 2 Tablet(s) Oral BID as needed 09/13/19 24 024 Inactive trazodone 50 mg tablet RxNorm: 590721 Take 1 Tablet(s) Oral QHS every night at bedtime 09/13/19 24 024 Inactive quetiapine 100 mg tablet RxNorm: 996690 Take 1.5 Tablet(s) Oral HS at bed time 09/13/19 24 024 Inactive sertraline 100 mg tablet RxNorm: 241690 Take 1.5 Tablet(s) Oral QD 09/13/19 24 024 Inactive Pain Reliever Plus 250 mg-250 mg-65 mg tablet RxNorm: 159261 Take 2 Tablet(s) Oral QD as needed 09/13/19 24 Inactive sertraline 100 mg tablet RxNorm: 470638 Take 1 Tablet(s) Oral QD 07/29/19 24 Inactive Please authorize cycle refill. Thanks. acetaminophen 500 mg tablet RxNorm: 687057 Take 2 Tablet(s) Oral BID as needed 07/20/19 24 024 Inactive acetaminophen 500 mg tablet RxNorm: 902146 Take 2 Tablet(s) Oral BID as needed 07/20/19 24 024 Inactive sertraline 100 mg tablet RxNorm: 774963 Take 1 Tablet(s) Oral QD 07/13/19 24 024 Inactive donepezil 5 mg tablet RxNorm: 610333 TAKE ONE-HALF TABLET (2.5MG) BY MOUTH ONCE DAILY 07/05/20 23 023 Inactive Cycle refill request. Cycle restarts (07/19/23). risperidone 1 mg tablet RxNorm: 346597 Take 1 Tablet(s) Oral HS at bed time 06/25/20 024 Inactive trazodone 50 mg tablet RxNorm: 153629 Take 1 Tablet(s) Oral QHS every night at bedtime as needed 06/25/20 024 Inactive quetiapine 25 mg tablet RxNorm: 269288 Take 1 Tablet(s) Oral Q4H every four hours as needed 06/25/20 024 Inactive Senna-S 8.6 mg-50 mg tablet RxNorm: 074583 Take 1 Tablet(s) Oral BID as needed 06/25/20 023 Inactive trazodone 50 mg tablet RxNorm: 214987 Take 1 Tablet(s) Oral QHS every night at bedtime as needed 06/25/20 023 Inactive Senna-S 8.6 mg-50 mg tablet RxNorm: 782289 Take 1 Tablet(s) Oral BID as needed 06/25/20 024 Inactive acetaminophen 500 mg tablet RxNorm: 553932 Take 2 Tablet(s) Oral BID as needed 06/18/20 024 Inactive acetaminophen 500 mg tablet RxNorm: 987769 Take 2 Tablet(s) Oral BID as needed 06/18/20 023 Inactive Excedrin Extra Strength 250 mg-250 mg-65 mg tablet RxNorm: 971196 Take 2 Tablet(s) Oral QD as needed 06/18/20 023 Inactive Excedrin Extra Strength 250 mg-250 mg-65 mg tablet RxNorm: 829735 Take 2 Tablet(s) Oral QD as needed 06/18/20 024 Inactive risperidone 1 mg tablet RxNorm: 108476 Take 1 Tablet(s) Oral BID 06/04/20 023 Inactive quetiapine 25 mg tablet RxNorm: 685660 Take 1 Tablet(s) Oral BID as needed 06/04/20 023 Inactive trazodone 50 mg tablet RxNorm: 700798 Take 1 Tablet(s) Oral QHS every night at bedtime 06/04/20 023 Inactive donepezil 10 mg tablet RxNorm: 632663 Take 1 Tablet(s) Oral QD 06/04/20 024 Inactive risperidone 1 mg tablet RxNorm: 079894 Take 1 Tablet(s) Oral BID as needed 06/04/20 023 Inactive Senexon-S 8.6 mg-50 mg tablet RxNorm: 0124887 Take 1 Tablet(s) Oral BID 06/03/20 023 Inactive Please authorize quantity 90 day supply with PRN refills for assisted living patient. Their cycle restarts 06/14/23. Thank you! memantine 5 mg tablet RxNorm: 915158 TAKE ONE-HALF TABLET (2.5MG) BY MOUTH TWICE DAILY 06/03/20 023 Inactive Please authorize quantity 90 day supply with PRN refills for assisted living patient. Their cycle restarts 06/14/23. Thank you! divalproex 125 mg capsule,delayed release sprinkle RxNorm: 2025318 TAKE 4 CAPSULES (500MG) BY MOUTH AT BEDTIME 06/03/20 024 Inactive Please authorize quantity 90 day supply with PRN refills for assisted living patient. Their cycle restarts 06/14/23. Thank you! sertraline 50 mg tablet RxNorm: 961795 Take 1 Tablet(s) Oral QD 06/03/20 024 Inactive Please authorize quantity 90 day supply with PRN refills for assisted living patient. Their cycle restarts 06/14/23. Thank you! naproxen 500 mg tablet RxNorm: 418468 Take 1 Tablet(s) Oral BID 01/23/20 23 023 Inactive naproxen 500 mg tablet RxNorm: 317267 Take 1 Tablet(s) Oral BID 01/23/20 23 023 Inactive naproxen 500 mg tablet RxNorm: 919368 Take 1 Tablet(s) Oral BID 01/23/20 23 023 Inactive mirtazapine 15 mg tablet RxNorm: 956294 Take 1 Tablet(s) Oral HS at bed time 01/01/20 23 023 Inactive CYCLE FILL REQUEST FOR CYCLE THAT STARTS 01/04/2023 escitalopram 10 mg tablet RxNorm: 445120 Take 1 Tablet(s) Oral QAM every morning 12/14/19 23 023 Inactive Cycle refill request. Cycle restarts (01/04/23). cholecalciferol (vitamin D3) 50 mcg (2,000 unit) tablet RxNorm: 134102 Take 1 Tablet(s) Oral QAM every morning 12/14/19 23 023 Inactive Cycle refill request. Cycle restarts (01/04/23). melatonin 10 mg sublingual tablet RxNorm: 6714430 TAKE 1 TABLET BY MOUTH AT BEDTIME NOTE DOSAGE/STRENGTH* 12/14/19 23 023 Inactive Cycle refill request. Cycle restarts (01/04/23). rivastigmine 1.5 mg capsule RxNorm: 423180 Take 1 Capsule(s) Oral BID 12/14/19 23 023 Inactive Cycle refill request. Cycle restarts (01/04/23). quetiapine 100 mg tablet RxNorm: 293991 Take 1 Tablet(s) Oral HS at bed time 12/14/19 23 023 Inactive Cycle refill request. Cycle restarts (01/04/23). levothyroxine 50 mcg tablet RxNorm: 486273 TAKE 1 TABLET BY MOUTH ONCE DAILY BEFORE BREAKFAST 12/14/19 23 023 Inactive Cycle refill request. Cycle restarts (01/04/23). amlodipine 5 mg tablet RxNorm: 327941 Take 1 Tablet(s) Oral QAM every morning 12/14/19 23 023 Inactive Cycle refill request. Cycle restarts (01/04/23). buspirone 15 mg tablet RxNorm: 074803 Take 1 Tablet(s) Oral BID 12/14/19 23 023 Inactive Cycle refill request. Cycle restarts (01/04/23). amitriptyline 10 mg tablet RxNorm: 363279 Take 1 Tablet(s) Oral HS at bed time 12/14/19 23 023 Inactive Cycle refill request. Cycle restarts (01/04/23). levofloxacin 500 mg tablet RxNorm: 417076 Take 1 Tablet(s) Oral QD 11/24/19 23 023 Inactive levofloxacin 500 mg tablet RxNorm: 006384 Take 1 Tablet(s) Oral QD 11/24/19 23 023 Inactive levothyroxine 50 mcg tablet RxNorm: 296057 Take 1 Tablet(s) Oral QD before Breakfast 11/18/19 23 023 Inactive amitriptyline 10 mg tablet RxNorm: 168881 Take 1 Tablet(s) Oral QHS every night at bedtime 11/18/19 023 Inactive acetaminophen 500 mg tablet RxNorm: 668752 2 Tablet(s) Oral TID as needed 11/18/19 023 Inactive amlodipine 5 mg tablet RxNorm: 658486 Take 1 Tablet(s) Oral QAM every morning 11/18/19 023 Inactive melatonin 5 mg tablet RxNorm: 802847 Give 1 Tablet(s) Oral QHS every night at bedtime 11/18/19 023 Inactive buspirone 15 mg tablet RxNorm: 877036 Take 1 Tablet(s) Oral BID 11/18/19 023 Inactive Seroquel 25 mg tablet RxNorm: 237340 Take 1 Tablet(s) Oral QHS every night at bedtime 11/18/19 023 Inactive cholecalciferol (vitamin D3) 50 mcg (2,000 unit) tablet RxNorm: 513766 Take 1 Tablet(s) Oral QD 11/18/19 023 Inactive rivastigmine 1.5 mg capsule RxNorm: 020675 Take 2 Capsule(s) Oral BID 11/18/19 023 Inactive mirtazapine 15 mg tablet RxNorm: 032735 Take 1 Tablet(s) Oral QHS every night at bedtime 11/18/19 023 Inactive aspirin-acetaminoph en-caffeine 250 mg-250 mg-65 mg tablet RxNorm: 870394 Take 2 Tablet(s) Oral QD as needed 11/18/19 023 Inactive escitalopram 10 mg tablet RxNorm: 928315 Take 1 Tablet(s) Oral QD 11/18/19 023 Inactive Medication Administered No Medication Administered data Immunizations Vaccine Codes Dose Date Status Influenza CVX: 205 1.0 04/06/2022 Covid-19 ([employer] mR NA, LNP-S, PF, 30 mcg/0.3 mL [...] Visits WPtel: [address], [address] [id number] [place] Referral Order Note Incomplete Instructions Comment Date Elderly female residing in [facility] assisted living at [facility]. PMHx: dementia, cluster B personality traits, depression, hypothyroidism, HTN, anxiety, suicidal ideationsPOLST: FULL CODEFred Anatoly-spouse, Qixe: -therapist: weekly calls usually on :1 visits 3 times weekly 01/28/2024
--- OUTSIDE RECORDS SUMMARY | 2024-09-10 16:34 | XMS_ITS | CCD ---
Author Name Aida Sr CNP Address [address] [place] [address] Phone Organization [facility] Phone Care Team Providers Care Loading And Unloading Supervisor Name Role Phone Aida Sr CNP Primary Care Provider Unavaila ble Orin SENIOR SALES OPERATIONS ANALYSTAida Chronic Care Management Unavai lable Summary Purpose DataExchange Insurance Providers Payer name Policy type / Coverage type Covered constitution party ID Effective Begin Date Effective End Date Sensorist Commercial Insurance [id number] Unknown [id number] Family History Family History data not found Allergies, Adverse Reactions, Alerts Substance Reaction Codes Entered Date Inactivated Date Status Sulfa Unknown 11/14/2022 No Inactive Date Ac tive Problems Condition Codes Effective Dates Condition St atus Anxiety ICD-10: F41.9 ICD-9: 300.00 01/15/2023 Active Dementia ICD-10: F03.90 ICD-9: 294.20 01/15/2023 Active HTN (hypertension) ICD-10: I10 ICD-9: 401.9 01/15/2023 Active Depression, major, recurrent, 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 ICD-9: 296.31 12/11/2022 Active Hypothyroid ICD-10: E03.9 ICD-9: 244.9 12/11/2022 Active UTI (urinary tract infection) ICD-10: N3 9.0 ICD-9: 599.0 12/11/2022 Active Advanced care planning - to document end of life discussions Unknown 11/20/2022 Active Advance care planning ICD-10: Z71.89 ICD-9: V65.49 11/20/2022 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 Cycle restarts (01/04/23). melatonin 10 mg sublingual tablet RxNorm: 0774845 TAKE 1 TABLET BY MOUTH AT BEDTIME NOTE DOSAGE/STRENGTH* 12/14/19 023 Inactive Cycle refill request. Cycle restarts (01/04/23). rivastigmine 1.5 mg capsule RxNorm: 448266 Take 1 Capsule(s) Oral BID 12/14/19 023 Inactive Cycle refill request. Cycle restarts (01/04/23). quetiapine 100 mg tablet RxNorm: 878506 Take 1 Tablet(s) Oral HS at bed time 12/14/19 23 023 Inactive Cycle refill request. Cycle restarts (01/04/23). buspirone 15 mg tablet RxNorm: 539802 Take 1 Tablet(s) Oral BID 12/14/19 023 Inactive Cycle refill request. Cycle restarts (01/04/23). amitriptyline 10 mg tablet RxNorm: 585794 Take 1 Tablet(s) Oral HS at bed time 12/14/19 23 023 Inactive Cycle refill request. Cycle restarts (01/04/23). cholecalciferol (vitamin D3) 50 mcg (2,000 unit) tablet RxNorm: 883249 Take 1 Tablet(s) Oral QAM every morning 12/14/19 23 023 Inactive Cycle refill request. Cycle restarts (01/04/23). levothyroxine 50 mcg tablet RxNorm: 307486 TAKE 1 TABLET BY MOUTH ONCE DAILY BEFORE BREAKFAST 12/14/19 23 023 Inactive Cycle refill request. Cycle restarts (01/04/23). amlodipine 5 mg tablet RxNorm: 286183 Take 1 Tablet(s) Oral QAM every morning 12/14/19 23 023 Inactive Cycle refill request. Cycle restarts (01/04/23). levofloxacin 500 mg tablet RxNorm: 543527 Take 1 Tablet(s) Oral QD 11/24/19 23 023 Inactive levofloxacin 500 mg tablet RxNorm: 824554 Take 1 Tablet(s) Oral QD 11/24/19 23 023 Inactive acetaminophen 500 mg tablet RxNorm: 995049 2 Tablet(s) Oral TID as needed 11/18/19 23 023 Inactive Seroquel 25 mg tablet RxNorm: 246199 Take 1 Tablet(s) Oral QHS every night at bedtime 11/18/19 023 Inactive aspirin-acetaminoph en-caffeine 250 mg-250 mg-65 mg tablet RxNorm: 774524 Take 2 Tablet(s) Oral QD as needed 11/18/19 23 023 Inactive levothyroxine 50 mcg tablet RxNorm: 156586 Take 1 Tablet(s) Oral QD before Breakfast 11/18/19 023 Inactive amitriptyline 10 mg tablet RxNorm: 952037 Take 1 Tablet(s) Oral QHS every night at bedtime 11/18/19 23 023 Inactive amlodipine 5 mg tablet RxNorm: 385961 Take 1 Tablet(s) Oral QAM every morning 11/18/19 023 Inactive melatonin 5 mg tablet RxNorm: 126500 Give 1 Tablet(s) Oral QHS every night at bedtime 11/18/19 23 023 Inactive buspirone 15 mg tablet RxNorm: 799090 Take 1 Tablet(s) Oral BID 11/18/19 23 023 Inactive cholecalciferol (vitamin D3) 50 mcg (2,000 unit) tablet RxNorm: 995428 Take 1 Tablet(s) Oral QD 11/18/19 023 Inactive rivastigmine 1.5 mg capsule RxNorm: 123054 Take 2 Capsule(s) Oral BID 11/18/19 023 Inactive mirtazapine 15 mg tablet RxNorm: 242975 Take 1 Tablet(s) Oral QHS every night at bedtime 11/18/19 023 Inactive escitalopram 10 mg tablet RxNorm: 269535 Take 1 Tablet(s) Oral QD 11/18/19 023 Inactive Medication Administered No Medication Administered data Immunizations Vaccine Codes Dose Date Status Influenza CVX: 205 1.0 04/06/2022 Covid-19 ([employer] mR NA, LNP-S, PF, 30 mcg/0.3 mL [...] 33 1.0 09/04/2000 Vital Signs Date Vital 01/15/2023 Blood Pressure 1: 154/82 Code: 8480-6 Heart Rate 1: 86 bpm Code: 8867-4 Respiratory Rate: 22 bpm Temperature: 34.1 (C) / 93.3 (F) Weight: 158 lbs Code: 3141-9 Reason For Visit No Reason For Visit data Encounters Encounter Performer Location Location Address Codes Date ([address]) Home or Residence Visit Est Pt - Moderate Level, 40 mins Diagnosis: HTN (hypertension)[IC D10: I10] Diagnosis: Anxiety[ICD10: F41.9] Diagnosis: Dementia[ICD10: F03.90] Aida Sr [facility] at [address] [address] CPT-4: 20817 01/15/2023 Plan of Care Planned Activity Notes Codes Status Date Patient Education: Patient Medication Summary Completed 01/15/2023 Patient Education: Influenza Vaccine Completed 01/15/2023 Appointment: Orin Aida WPtel: [address] [place], [place] [id number] NPAWV 11/20/2022 Referral: General Psychiatrist Referral Patient/Family Scheduling Appointment Referral: VIA Orthopedics- I n Home Visits WPtel: [address] [id number] Referral Order Note Incomplete Instructions Comment Date Elderly female residing in [facility] assisted living at [facility] in [place]. PMHx: dementia, cluster B personality traits, depression, hypothyroidism, HTN, anxiety, suicidal ideationsPOLST: FULL CODEFred Anatoly-spouse, Iien: November/isa-therapist: weekly calls usually on -1:1 visits 3 times weekly 01/28/2024 Declined Procedure: (G8431) POS CLIN DEPRES SCRN F/U DOC; Declined Reason: Patient Declined Anxiety Continue buspar 15mg BID. Patient has a 1:1 that visits her three times a week. She has weekly calls with her therapist. Appreciate [facility]. She is scheduled to meet with [facility] in January. Monitor for increase anxiety, irritability, excessive worry, insomnia & trembling. Neurocognitive Disorders Continue buspar 15mg BID, mirtazapine 15mg at HS, rivastigmine 3mg BID, seroquel 25mg at HS. Appreciate [facility] psych and [facility]. Safe in [facility] setting with 24 hour nursing supervision. Anticipate ongoing cognitive and physical decline with disease progression. Continue current care plan and reassessment in one month. Facility to update with any changes in the condition. Hypertension Continue norvasc 5mg daily. Consider increase to 7.5mg if blood pressure consistently over goal. Patient was very anxious during visit which could be a contributing factor for elevated BP. . 01/15/2023
--- OUTSIDE RECORDS SUMMARY | 2024-09-10 16:35 | XMS_ITS | CCD ---
Author Name Aida Sr CNP Address [address] [facility] [address] [place] [address] Phone Organization [facility] Phone Care Team Providers Care Dot Compliance Manager Name Role Phone Orin DIGGING MACHINE OPERATORAida Primary Care Provider Unavaila ble Orin DIGGING MACHINE OPERATORAida Chronic Care Management Unavai lable Summary Purpose DataExchange Insurance Providers Payer name Policy type / Coverage type Covered republican ID Effective Begin Date Effective End Date [employer]Up Commercial Insurance [id number] Unknown [id number] Family History Family History data not found [...] Start Date Stop Date Status Fill Instructions levothyroxine 50 mcg tablet RxNorm: 794744 Take 1 Tablet(s) Oral QD before Breakfast 3 023 Inactive amitriptyline 10 mg tablet RxNorm: 552524 Take 1 Tablet(s) Oral QHS every night at bedtime 3 023 Inactive acetaminophen 500 mg tablet RxNorm: 745220 2 Tablet(s) Oral TID as needed 3 023 Inactive amlodipine 5 mg tablet RxNorm: 766411 Take 1 Tablet(s) Oral QAM every morning 3 023 Inactive melatonin 5 mg tablet RxNorm: 579751 Give 1 Tablet(s) Oral QHS every night at bedtime 3 023 Inactive buspirone 15 mg tablet RxNorm: 762909 Take 1 Tablet(s) Oral BID 3 023 Inactive Seroquel 25 mg tablet RxNorm: 094868 Take 1 Tablet(s) Oral QHS every night at bedtime 3 023 Inactive cholecalciferol (vitamin D3) 50 mcg (2,000 unit) tablet RxNorm: 246192 Take 1 Tablet(s) Oral QD 3 023 Inactive rivastigmine 1.5 mg capsule RxNorm: 272853 Take 2 Capsule(s) Oral BID 3 023 Inactive mirtazapine 15 mg tablet RxNorm: 842195 Take 1 Tablet(s) Oral QHS every night at bedtime 3 023 Inactive aspirin-acetaminoph en-caffeine 250 mg-250 mg-65 mg tablet RxNorm: 749708 Take 2 Tablet(s) Oral QD as needed 3 023 Inactive escitalopram 10 mg tablet RxNorm: 843466 Take 1 Tablet(s) Oral QD 3 023 Inactive Medication Administered No Medication Administered data Immunizations Vaccine Codes Dose Date Status Influenza CVX: 205 1.0 04/06/2022 Covid-19 (Pfizer-BioNTech mR NA, LNP-S, PF, 30 mcg/0.3 mL [...] Result Date S ervice Location PHQ2 PHQ2 [id number] 11/20/2022 Unknown [facility] [id number] 11/20/2022 Unknown Procedures Procedure Codes Date ADVNC CARE PLAN IN [facility] CPT-4: 1157F 11/21/19 FXNL STATUS ASSESSED CPT-4: 1170F 11/20/2022 AMNT PAIN NOTED NONE PRSNT CPT-4: 1126F 11/20 FALL RISK ASSESSMENT DOCD CPT-4: 3288F 2022 Vital Signs Date Vital 11/20/2022 Blood Pressure 1: 145/79 Code: 8480-6 Heart Rate 1: 77 bpm Code: 8867-4 Respiratory Rate: 12 bpm Temperature: 35.9 (C) / 96.6 (F) Weight: 160 lbs Code: 3141-9 Reason For Visit No Reason For Visit data Encounters Encounter Performer Location Location Address Codes Date ([address]) Home or Residence Visit FOOD EQUIPMENT SERVICE TECHNICIAN - High Level, 75 mins Diagnosis: Advance care planning[ICD10: Z71.89] Diagnosis: Hypothyroid[ICD10: E03.9] Diagnosis: HTN (hypertension)[ICD 10: I10] Diagnosis: Depression, major, recurrent, mild[ICD10: F33.0] Diagnosis: Anxiety[ICD10: F41.9] 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, [address] [id number] Referral Order Note Incomplete Instructions Comment Date Elderly female residing in [facility] assisted living at [facility]. PMHx: dementia, cluster B personality traits, depression, hypothyroidism, HTN, anxiety, suicidal ideationsPOLST: FULL CODEFred Anatoly-spouse, Zboy: November/isa-therapist: weekly calls usually on :1 visits 3 times weekly 01/28/2024 CCM conversation: I have rev iewed the availability of the chronic care management program with the patient and/or medical power of attorney at law (whomever signed consent for services), including the possible cost sharing responsibilities, that only 1 practitioner can furnish and bill CCM services during a calendar month, and that they have the right to stop CCM services at any time (effective at the end of the calendar month) Vitamin D Deficiency Continue vitamin d 2000iu daily. Will check vitamin d level. Hypothyroidism Continue levothyroxine 50mcg daily. Will check TSH. Monitor for fatigue, increased sensitivity to cold, constipation, irritability, weakness, muscle aches or stiffness, decreased HR, hoarse voice and enlarged thyroid. Neurocognitive Disorders Will check TSH, vitamin B12. Continue buspar 15mg BID, mirtazapine 15mg at HS, rivastigmine 3mg BID, seroquel 25mg at HS. Safe in [facility]/ setting with 24 hour nursing supervision. Anticipate ongoing cognitive and physical decline with disease progression. Continue current care plan and reassessment in one month. Facility to update with any changes in the condition. Depression Continue amitripyline 10mg q HS, lexapro 10mg daily, mirtazapine 15mg at HS. Will monitor for signs of decreased/increased sleep or appetite, decreased energy level or interest in activities. Age increases risk for depression. Will continuously evaluate appropriate involvement of medications, BHI, Psych and additional sitter/caregiver. Mental Health Will consult [facility] psych for history of suicidal ideations and medication management. Consider BHI if an increase in anxiety presents. Continue amitripyline 10mg q HS, buspar 15mg BID, lexapro 10mg daily. mirtazapine 15mg at HS, seroquel 25mg at HS. Monitor for hallucinations, delusions, anger outbursts or physical altercations, and free floating anxiety. Hypertension Continue norvasc 5mg daily. Will check CBC and CMP. Care plan: Routinely monitor blood pressures to follow trends. Goal is less than 150/90. Watch for side effects to medications and for over treatment, which can cause hypotension. Anxiety Continue buspar 15mg BID. Monitor for increase anxiety, irritability, excessive worry, insomnia & trembling. Suicidal ideation Will consult [facility] for suicidal ideations and medication management. Monitor for suicidal ideations, hallucinations, delusions, anger outbursts or physical altercations, and free floating anxiety. . 11/20/2022
--- OUTSIDE RECORDS SUMMARY | 2024-09-10 16:35 | XMS_ITS | CCD ---
Author Organization Unknown Care Team Providers Care Fuels Sales Representative Name Role Phone Orin GARCIA, Aida Primary Care Provider Unavaila ble Aida Sr CNP Chronic Care Management Unavai lable Summary Purpose DataExchange Insurance Providers Payer name Policy type / Coverage type Covered constitution party ID Effective Begin Date Effective End Date [employer] Commercial Insurance [id number] Unknown Family History Family History data not [...] Fill Instructions donepezil 5 mg tablet RxNorm: 581628 TAKE ONE-HALF TABLET (2.5MG) BY MOUTH ONCE DAILY 07/05/20 Inactive Cycle refill request. Cycle restarts (07/19/23). risperidone 1 mg tablet RxNorm: 569819 Take 1 Tablet(s) Oral HS at bed time 06/25/20 Inactive trazodone 50 mg tablet RxNorm: 348056 Take 1 Tablet(s) Oral QHS every night at bedtime as needed 06/25/20 024 Inactive quetiapine 25 mg tablet RxNorm: 744255 Take 1 Tablet(s) Oral Q4H every four hours as needed 06/25/20 024 Inactive Senna-S 8.6 mg-50 mg tablet RxNorm: 733422 Take 1 Tablet(s) Oral BID as needed 06/25/20 024 Inactive Senna-S 8.6 mg-50 mg tablet RxNorm: 847559 Take 1 Tablet(s) Oral BID as needed 06/25/20 023 Inactive trazodone 50 mg tablet RxNorm: 547545 Take 1 Tablet(s) Oral QHS every night at bedtime as needed 06/25/20 023 Inactive acetaminophen 500 mg tablet RxNorm: 950632 Take 2 Tablet(s) Oral BID as needed 06/18/20 024 Inactive Excedrin Extra Strength 250 mg-250 mg-65 mg tablet RxNorm: 982110 Take 2 Tablet(s) Oral QD as needed 06/18/20 024 Inactive acetaminophen 500 mg tablet RxNorm: 084892 Take 2 Tablet(s) Oral BID as needed 06/18/20 023 Inactive Excedrin Extra Strength 250 mg-250 mg-65 mg tablet RxNorm: 572256 Take 2 Tablet(s) Oral QD as needed 06/18/20 023 Inactive donepezil 10 mg tablet RxNorm: 142712 Take 1 Tablet(s) Oral QD 06/04/20 024 Inactive risperidone 1 mg tablet RxNorm: 624257 Take 1 Tablet(s) Oral BID 06/04/20 023 Inactive quetiapine 25 mg tablet RxNorm: 582355 Take 1 Tablet(s) Oral BID as needed 06/04/20 023 Inactive trazodone 50 mg tablet RxNorm: 264706 Take 1 Tablet(s) Oral QHS every night at bedtime 06/04/20 023 Inactive risperidone 1 mg tablet RxNorm: 233540 Take 1 Tablet(s) Oral BID as needed 06/04/20 023 Inactive divalproex 125 mg capsule,delayed release sprinkle RxNorm: 4325330 TAKE 4 CAPSULES (500MG) BY MOUTH AT BEDTIME 06/03/20 024 Inactive Please authorize quantity 90 day supply with PRN refills for assisted living patient. Their cycle restarts 06/14/23. Thank you! sertraline 50 mg tablet RxNorm: 351538 Take 1 Tablet(s) Oral QD 06/03/20 024 Inactive Please authorize quantity 90 day supply with PRN refills for assisted living patient. Their cycle restarts 06/14/23. Thank you! Senexon-S 8.6 mg-50 mg tablet RxNorm: 9713425 Take 1 Tablet(s) Oral BID 06/03/20 023 Inactive Please authorize quantity 90 day supply with PRN refills for assisted living patient. Their cycle restarts 06/14/23. Thank you! memantine 5 mg tablet RxNorm: 557717 TAKE ONE-HALF TABLET (2.5MG) BY MOUTH TWICE DAILY 06/03/20 023 Inactive Please authorize quantity 90 day supply with PRN refills for assisted living patient. Their cycle restarts 06/14/23. Thank you! naproxen 500 mg tablet RxNorm: 069311 Take 1 Tablet(s) Oral BID 01/23/20 23 023 Inactive naproxen 500 mg tablet RxNorm: 918191 Take 1 Tablet(s) Oral BID 01/23/20 23 023 Inactive naproxen 500 mg tablet RxNorm: 822593 Take 1 Tablet(s) Oral BID 01/23/20 23 023 Inactive mirtazapine 15 mg tablet RxNorm: 679048 Take 1 Tablet(s) Oral HS at bed time 01/01/20 023 Inactive CYCLE FILL REQUEST FOR CYCLE THAT STARTS 01/04/2023 escitalopram 10 mg tablet RxNorm: 840446 Take 1 Tablet(s) Oral QAM every morning 12/14/19 023 Inactive Cycle refill request. Cycle restarts (01/04/23). cholecalciferol (vitamin D3) 50 mcg (2,000 unit) tablet RxNorm: 340042 Take 1 Tablet(s) Oral QAM every morning 12/14/19 23 023 Inactive Cycle refill request. Cycle restarts (01/04/23). melatonin 10 mg sublingual tablet RxNorm: 6605654 TAKE 1 TABLET BY MOUTH AT BEDTIME NOTE DOSAGE/STRENGTH* 12/14/19 023 Inactive Cycle refill request. Cycle restarts (01/04/23). rivastigmine 1.5 mg capsule RxNorm: 057128 Take 1 Capsule(s) Oral BID 12/14/19 23 023 Inactive Cycle refill request. Cycle restarts (01/04/23). quetiapine 100 mg tablet RxNorm: 918589 Take 1 Tablet(s) Oral HS at bed time 12/14/19 23 023 Inactive Cycle refill request. Cycle restarts (01/04/23). levothyroxine 50 mcg tablet RxNorm: 731491 TAKE 1 TABLET BY MOUTH ONCE DAILY BEFORE BREAKFAST 12/14/19 23 023 Inactive Cycle refill request. Cycle restarts (01/04/23). amlodipine 5 mg tablet RxNorm: 056832 Take 1 Tablet(s) Oral QAM every morning 12/14/19 23 023 Inactive Cycle refill request. Cycle restarts (01/04/23). buspirone 15 mg tablet RxNorm: 538519 Take 1 Tablet(s) Oral BID 12/14/19 23 023 Inactive Cycle refill request. Cycle restarts (01/04/23). amitriptyline 10 mg tablet RxNorm: 341797 Take 1 Tablet(s) Oral HS at bed time 12/14/19 23 023 Inactive Cycle refill request. Cycle restarts (01/04/23). levofloxacin 500 mg tablet RxNorm: 746624 Take 1 Tablet(s) Oral QD 11/24/19 23 023 Inactive levofloxacin 500 mg tablet RxNorm: 516974 Take 1 Tablet(s) Oral QD 11/24/19 23 023 Inactive levothyroxine 50 mcg tablet RxNorm: 037877 Take 1 Tablet(s) Oral QD before Breakfast 11/18/19 23 023 Inactive amitriptyline 10 mg tablet RxNorm: 170877 Take 1 Tablet(s) Oral QHS every night at bedtime 11/18/19 23 023 Inactive acetaminophen 500 mg tablet RxNorm: 828062 2 Tablet(s) Oral TID as needed 11/18/19 23 023 Inactive amlodipine 5 mg tablet RxNorm: 206429 Take 1 Tablet(s) Oral QAM every morning 11/18/19 23 023 Inactive melatonin 5 mg tablet RxNorm: 512585 Give 1 Tablet(s) Oral QHS every night at bedtime 11/18/19 23 023 Inactive buspirone 15 mg tablet RxNorm: 271684 Take 1 Tablet(s) Oral BID 11/18/19 23 023 Inactive Seroquel 25 mg tablet RxNorm: 336318 Take 1 Tablet(s) Oral QHS every night at bedtime 11/18/19 23 023 Inactive cholecalciferol (vitamin D3) 50 mcg (2,000 unit) tablet RxNorm: 155654 Take 1 Tablet(s) Oral QD 11/18/19 023 Inactive rivastigmine 1.5 mg capsule RxNorm: 358437 Take 2 Capsule(s) Oral BID 11/18/19 023 Inactive mirtazapine 15 mg tablet RxNorm: 337509 Take 1 Tablet(s) Oral QHS every night at bedtime 11/18/19 023 Inactive aspirin-acetaminoph en-caffeine 250 mg-250 mg-65 mg tablet RxNorm: 103841 Take 2 Tablet(s) Oral QD as needed 11/18/19 023 Inactive escitalopram 10 mg tablet RxNorm: 296996 Take 1 Tablet(s) Oral QD 11/18/19 023 Inactive Medication Administered No Medication Administered data Immunizations Vaccine Codes Dose Date Status Influenza CVX: 205 1.0 04/06/2022 Covid-19 ([employer] mR NA, LNP-S, PF, 30 mcg/0.3 mL [...] WPtel: [address], [address] [id number] Referral Order Note Incomplete Instructions Comment Date Elderly female residing in [facility] assisted living at [facility]. PMHx: dementia, cluster B personality traits, depression, hypothyroidism, HTN, anxiety, suicidal ideationsPOLST: FULL CODEFred Anatoly-spouse, Kodi: -therapist: weekly calls usually on :1 visits 3 times weekly 01/28/2024
--- OUTSIDE RECORDS SUMMARY | 2024-09-10 16:35 | XMS_ITS | CCD ---
Author Name Aida Sr CNP Address [address] [facility] [address] [facility] [address] [place] [address] Phone Organization [facility] Phone Care Team Providers Care Geospatial Program Management Officer Name Role Phone Aida Sr CNP Primary Care Provider Unavaila ble Orni TECHNOLOGY RESOURCE TEACHERAida Chronic Care Management Unavai lable Summary Purpose DataExchange Insurance Providers Payer name Policy type / Coverage type Covered green party ID Effective Begin Date Effective End Date [employer] Commercial Insurance [id number] Unknown Family History Family History data not [...] Fill Instructions acetaminophen 500 mg tablet RxNorm: 622574 Take 2 Tablet(s) Oral BID as needed 07/20/19 24 Inactive acetaminophen 500 mg tablet RxNorm: 449241 Take 2 Tablet(s) Oral BID as needed 07/20/19 24 024 Inactive sertraline 100 mg tablet RxNorm: 903503 Take 1 Tablet(s) Oral QD 07/13/19 24 024 Inactive donepezil 5 mg tablet RxNorm: 503290 TAKE ONE-HALF TABLET (2.5MG) BY MOUTH ONCE DAILY 07/05/20 023 Inactive Cycle refill request. Cycle restarts (07/19/23). risperidone 1 mg tablet RxNorm: 214219 Take 1 Tablet(s) Oral HS at bed time 06/25/20 024 Inactive quetiapine 25 mg tablet RxNorm: 569447 Take 1 Tablet(s) Oral Q4H every four hours as needed 06/25/20 23 024 Inactive trazodone 50 mg tablet RxNorm: 207272 Take 1 Tablet(s) Oral QHS every night at bedtime as needed 06/25/20 23 024 Inactive Senna-S 8.6 mg-50 mg tablet RxNorm: 480081 Take 1 Tablet(s) Oral BID as needed 06/25/20 23 023 Inactive trazodone 50 mg tablet RxNorm: 708031 Take 1 Tablet(s) Oral QHS every night at bedtime as needed 06/25/20 023 Inactive Senna-S 8.6 mg-50 mg tablet RxNorm: 641397 Take 1 Tablet(s) Oral BID as needed 06/25/20 024 Inactive acetaminophen 500 mg tablet RxNorm: 969985 Take 2 Tablet(s) Oral BID as needed 06/18/20 024 Inactive acetaminophen 500 mg tablet RxNorm: 679684 Take 2 Tablet(s) Oral BID as needed 06/18/20 023 Inactive Excedrin Extra Strength 250 mg-250 mg-65 mg tablet RxNorm: 121111 Take 2 Tablet(s) Oral QD as needed 06/18/20 023 Inactive Excedrin Extra Strength 250 mg-250 mg-65 mg tablet RxNorm: 383614 Take 2 Tablet(s) Oral QD as needed 06/18/20 024 Inactive donepezil 10 mg tablet RxNorm: 149148 Take 1 Tablet(s) Oral QD 06/04/20 024 Inactive risperidone 1 mg tablet RxNorm: 610835 Take 1 Tablet(s) Oral BID 06/04/20 023 Inactive quetiapine 25 mg tablet RxNorm: 374942 Take 1 Tablet(s) Oral BID as needed 06/04/20 023 Inactive trazodone 50 mg tablet RxNorm: 435552 Take 1 Tablet(s) Oral QHS every night at bedtime 06/04/20 023 Inactive risperidone 1 mg tablet RxNorm: 205429 Take 1 Tablet(s) Oral BID as needed 06/04/20 023 Inactive divalproex 125 mg capsule,delayed release sprinkle RxNorm: 5264159 TAKE 4 CAPSULES (500MG) BY MOUTH AT BEDTIME 06/03/20 024 Inactive Please authorize quantity 90 day supply with PRN refills for assisted living patient. Their cycle restarts 06/14/23. Thank you! Senexon-S 8.6 mg-50 mg tablet RxNorm: 5544247 Take 1 Tablet(s) Oral BID 06/03/20 23 023 Inactive Please authorize quantity 90 day supply with PRN refills for assisted living patient. Their cycle restarts 06/14/23. Thank you! memantine 5 mg tablet RxNorm: 848032 TAKE ONE-HALF TABLET (2.5MG) BY MOUTH TWICE DAILY 06/03/20 23 023 Inactive Please authorize quantity 90 day supply with PRN refills for assisted living patient. Their cycle restarts 06/14/23. Thank you! sertraline 50 mg tablet RxNorm: 510405 Take 1 Tablet(s) Oral QD 06/03/20 024 Inactive Please authorize quantity 90 day supply with PRN refills for assisted living patient. Their cycle restarts 06/14/23. Thank you! naproxen 500 mg tablet RxNorm: 978871 Take 1 Tablet(s) Oral BID 01/23/20 23 023 Inactive naproxen 500 mg tablet RxNorm: 370042 Take 1 Tablet(s) Oral BID 01/23/20 23 023 Inactive naproxen 500 mg tablet RxNorm: 494042 Take 1 Tablet(s) Oral BID 01/23/20 23 023 Inactive mirtazapine 15 mg tablet RxNorm: 271042 Take 1 Tablet(s) Oral HS at bed time 01/01/20 23 023 Inactive CYCLE FILL REQUEST FOR CYCLE THAT STARTS 01/04/2023 escitalopram 10 mg tablet RxNorm: 785228 Take 1 Tablet(s) Oral QAM every morning 12/14/19 23 023 Inactive Cycle refill request. Cycle restarts (01/04/23). cholecalciferol (vitamin D3) 50 mcg (2,000 unit) tablet RxNorm: 958373 Take 1 Tablet(s) Oral QAM every morning 12/14/19 23 023 Inactive Cycle refill request. Cycle restarts (01/04/23). melatonin 10 mg sublingual tablet RxNorm: 7762807 TAKE 1 TABLET BY MOUTH AT BEDTIME NOTE DOSAGE/STRENGTH* 12/14/19 23 023 Inactive Cycle refill request. Cycle restarts (01/04/23). rivastigmine 1.5 mg capsule RxNorm: 392118 Take 1 Capsule(s) Oral BID 12/14/19 23 023 Inactive Cycle refill request. Cycle restarts (01/04/23). quetiapine 100 mg tablet RxNorm: 682836 Take 1 Tablet(s) Oral HS at bed time 12/14/19 23 023 Inactive Cycle refill request. Cycle restarts (01/04/23). levothyroxine 50 mcg tablet RxNorm: 870626 TAKE 1 TABLET BY MOUTH ONCE DAILY BEFORE BREAKFAST 12/14/19 23 023 Inactive Cycle refill request. Cycle restarts (01/04/23). amlodipine 5 mg tablet RxNorm: 667681 Take 1 Tablet(s) Oral QAM every morning 12/14/19 23 023 Inactive Cycle refill request. Cycle restarts (01/04/23). buspirone 15 mg tablet RxNorm: 003250 Take 1 Tablet(s) Oral BID 12/14/19 23 023 Inactive Cycle refill request. Cycle restarts (01/04/23). amitriptyline 10 mg tablet RxNorm: 618926 Take 1 Tablet(s) Oral HS at bed time 12/14/19 23 023 Inactive Cycle refill request. Cycle restarts (01/04/23). levofloxacin 500 mg tablet RxNorm: 556416 Take 1 Tablet(s) Oral QD 11/24/19 23 023 Inactive levofloxacin 500 mg tablet RxNorm: 395797 Take 1 Tablet(s) Oral QD 11/24/19 23 023 Inactive levothyroxine 50 mcg tablet RxNorm: 196374 Take 1 Tablet(s) Oral QD before Breakfast 11/18/19 23 023 Inactive amitriptyline 10 mg tablet RxNorm: 481998 Take 1 Tablet(s) Oral QHS every night at bedtime 11/18/19 23 023 Inactive acetaminophen 500 mg tablet RxNorm: 127539 2 Tablet(s) Oral TID as needed 11/18/19 023 Inactive amlodipine 5 mg tablet RxNorm: 743652 Take 1 Tablet(s) Oral QAM every morning 11/18/19 023 Inactive melatonin 5 mg tablet RxNorm: 296262 Give 1 Tablet(s) Oral QHS every night at bedtime 11/18/19 023 Inactive buspirone 15 mg tablet RxNorm: 511260 Take 1 Tablet(s) Oral BID 11/18/19 023 Inactive Seroquel 25 mg tablet RxNorm: 622383 Take 1 Tablet(s) Oral QHS every night at bedtime 11/18/19 023 Inactive cholecalciferol (vitamin D3) 50 mcg (2,000 unit) tablet RxNorm: 343955 Take 1 Tablet(s) Oral QD 11/18/19 023 Inactive rivastigmine 1.5 mg capsule RxNorm: 700127 Take 2 Capsule(s) Oral BID 11/18/19 023 Inactive mirtazapine 15 mg tablet RxNorm: 434316 Take 1 Tablet(s) Oral QHS every night at bedtime 11/18/19 023 Inactive aspirin-acetaminoph en-caffeine 250 mg-250 mg-65 mg tablet RxNorm: 445109 Take 2 Tablet(s) Oral QD as needed 11/18/19 023 Inactive escitalopram 10 mg tablet RxNorm: 757176 Take 1 Tablet(s) Oral QD 11/18/19 023 Inactive Medication Administered No Medication Administered data Immunizations Vaccine Codes Dose Date Status Influenza CVX: 205 1.0 04/06/2022 Covid-19 ([employer] mR NA, LNP-S, PF, 30 mcg/0.3 mL [...] Item Item Code Result Date Service Location Hepatitis C Antibody 68298 Hepatitis C antibody Nonreactive 07/27/19 24 Unknown Hepatitis B Surface Antibody [id number] HEPATITIS B SURFACE ANTIBODY INTERP Nonreactive 07/27/19 24 Unknown Hepatitis B Surface Antibody [id number] Hepatitis B surface antibody <3.50 m[IU]/mL 07/27/19 Unknown Reason For Visit No Reason For Visit data Plan of Care Planned Activity Notes Codes Status Date Appointment: Aida Sr WPtel: [address] [place], [place] [phone] [place] F/U 07/23/2023 Appointment: Aida Sr WPtel: [address] [place], [place] [phone] [place] F/U 06/25/2023 Appointment: Bam Frey: [address] [place], [place] [phone] [place] SDV 01/22/2023 Appointment: Aida Sr WPtel: [address] [facility] [address] [facility] [address] [id number] [place] 11/20/2022 Referral: General Psychiatrist Referral Patient/Family Scheduling Appointment Referral: [facility] Vis[facility] WPtel: [address], [address] [id number] Referral Order Note Incomplete Instructions Comment Date Elderly female residing in [facility] assisted living at [facility]. PMHx: dementia, cluster B personality traits, depression, hypothyroidism, HTN, anxiety, suicidal ideationsPOLST: FULL CODEFred Anatoly-spouse, Nlit: ham-therapist: weekly calls usually on :1 visits 3 times weekly 01/28/2024
--- OUTSIDE RECORDS SUMMARY | 2024-09-10 16:35 | XMS_ITS | CCD ---
Author Name Summer Staton CNP Address [address] [facility] [address] [place] [address] Phone Organization [facility] [place] [facility] Phone Care Team Providers Care Knot Cutter Name Role Phone Aida Sr CNP Primary Care Provider Unavaila ble Aida Sr CNP Chronic Care Management Unavai elvis Summary Purpose DataExchange Insurance Providers Payer name Policy type / Coverage type Covered constitution party ID Effective Begin Date Effective End Date [employer] Commercial Insurance [id number] Unknown [id number] Family History Family History data not found [...] Fill Instructions mirtazapine 15 mg tablet RxNorm: 345345 Take 1 Tablet(s) Oral HS at bed time 01/01/20 23 023 Inactive CYCLE FILL REQUEST FOR CYCLE THAT STARTS 01/04/2023 escitalopram 10 mg tablet RxNorm: 405100 Take 1 Tablet(s) Oral QAM every morning 12/14/19 23 023 Inactive Cycle refill request. Cycle restarts (01/04/23). melatonin 10 mg sublingual tablet RxNorm: 8624671 TAKE 1 TABLET BY MOUTH AT BEDTIME NOTE DOSAGE/STRENGTH* 12/14/19 023 Inactive Cycle refill request. Cycle restarts (01/04/23). rivastigmine 1.5 mg capsule RxNorm: 762961 Take 1 Capsule(s) Oral BID 12/14/19 23 023 Inactive Cycle refill request. Cycle restarts (01/04/23). quetiapine 100 mg tablet RxNorm: 414812 Take 1 Tablet(s) Oral HS at bed time 12/14/19 23 023 Inactive Cycle refill request. Cycle restarts (01/04/23). buspirone 15 mg tablet RxNorm: 878343 Take 1 Tablet(s) Oral BID 12/14/19 023 Inactive Cycle refill request. Cycle restarts (01/04/23). amitriptyline 10 mg tablet RxNorm: 783442 Take 1 Tablet(s) Oral HS at bed time 12/14/19 23 023 Inactive Cycle refill request. Cycle restarts (01/04/23). cholecalciferol (vitamin D3) 50 mcg (2,000 unit) tablet RxNorm: 415377 Take 1 Tablet(s) Oral QAM every morning 12/14/19 23 023 Inactive Cycle refill request. Cycle restarts (01/04/23). levothyroxine 50 mcg tablet RxNorm: 249326 TAKE 1 TABLET BY MOUTH ONCE DAILY BEFORE BREAKFAST 12/14/19 23 023 Inactive Cycle refill request. Cycle restarts (01/04/23). amlodipine 5 mg tablet RxNorm: 572747 Take 1 Tablet(s) Oral QAM every morning 12/14/19 23 023 Inactive Cycle refill request. Cycle restarts (01/04/23). levofloxacin 500 mg tablet RxNorm: 570784 Take 1 Tablet(s) Oral QD 11/24/19 23 023 Inactive levofloxacin 500 mg tablet RxNorm: 760462 Take 1 Tablet(s) Oral QD 11/24/19 23 023 Inactive acetaminophen 500 mg tablet RxNorm: 828797 2 Tablet(s) Oral TID as needed 11/18/19 023 Inactive Seroquel 25 mg tablet RxNorm: 532341 Take 1 Tablet(s) Oral QHS every night at bedtime 11/18/19 023 Inactive aspirin-acetaminoph en-caffeine 250 mg-250 mg-65 mg tablet RxNorm: 226206 Take 2 Tablet(s) Oral QD as needed 11/18/19 023 Inactive levothyroxine 50 mcg tablet RxNorm: 321226 Take 1 Tablet(s) Oral QD before Breakfast 11/18/19 023 Inactive amitriptyline 10 mg tablet RxNorm: 107800 Take 1 Tablet(s) Oral QHS every night at bedtime 11/18/19 023 Inactive amlodipine 5 mg tablet RxNorm: 889715 Take 1 Tablet(s) Oral QAM every morning 11/18/19 023 Inactive melatonin 5 mg tablet RxNorm: 548984 Give 1 Tablet(s) Oral QHS every night at bedtime 11/18/19 23 023 Inactive buspirone 15 mg tablet RxNorm: 494466 Take 1 Tablet(s) Oral BID 11/18/19 023 Inactive cholecalciferol (vitamin D3) 50 mcg (2,000 unit) tablet RxNorm: 899357 Take 1 Tablet(s) Oral QD 05/12/ 023 Inactive rivastigmine 1.5 mg capsule RxNorm: 038754 Take 2 Capsule(s) Oral BID 11/18/19 023 Inactive mirtazapine 15 mg tablet RxNorm: 401478 Take 1 Tablet(s) Oral QHS every night at bedtime 11/18/19 023 Inactive escitalopram 10 mg tablet RxNorm: 851677 Take 1 Tablet(s) Oral QD 11/18/19 023 Inactive Medication Administered No Medication Administered data Immunizations Vaccine Codes Dose Date Status Influenza CVX: 205 1.0 04/06/2022 Covid-19 ([employer] mR NA, LNP-S, PF, 30 mcg/0.3 mL [...] Performer Location Location Address Codes Date () PSYCH DIAG EVAL W/MED SRVCS Diagnosis: Dementia[ICD10: F03.90] 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, [address] [id number] Referral Order Note Incomplete Instructions Comment Date Elderly female residing in [facility] assisted living at [facility] in [place]. PMHx: dementia, cluster B personality traits, depression, hypothyroidism, HTN, anxiety, suicidal ideationsPOLST: FULL CODEFred Anatoly-spouse, Tvye: November/isa-therapist: weekly calls usually on -:1 visits 3 times weekly 01/28/2024 Suicidal ideation Patient denied that she would harm self. Continue to monitor closely. Neurocognitive Disorders Unknown when and indication for increased dose of Seroquel. Requested records from previous provider. Left VM for son as he may be able to provide background history of medication adjustments and patient past psychiatric history. Patient is an unreliable historian. Minimal past medical and psychiatric history of available outside of [place] summary. Mental Health Patient having difficulty with environment and being apartment from her spouse. Patient struggling with cognitive loss that is complicated with BPS and difficulty handling stressful situations. Depression Continue with current medication regimen as patient is tolerating current dosing. Will await further background history prior to making medication changes. . 01/18/2023
--- OUTSIDE RECORDS SUMMARY | 2024-09-10 16:35 | XMS_ITS | CCD ---
Author Organization Unknown Care Team Providers Care Meat Cutter Name Role Phone Aida Sr CNP Primary Care Provider Unavaila ble Aida Sr CNP Chronic Care Management Unavai lable Summary Purpose DataExchange Insurance Providers Payer name Policy type / Coverage type Covered constitution party ID Effective Begin Date Effective End Date [employer] Commercial Insurance [id number] Unknown Family history Runs in the family Diagnosis Age At Onset No Known Diseases N/A Social History Social History Element Codes Description Effec tive Dates Marital status Unknown 01/28/2024 Living arrangements Unknown Memory Care 01/28/[address]: 945303601 Never smoker 01/[address]: 348132267 No Alcohol Consum ption 01/28/2024 Sexually Active? [...] Condition [facility] Acute cough SNOMED CT: 954537437 [id number] ICD-10: R05.1 ICD-9: 786.2 09/08/2024 Active Dementia ICD-10: F03.90 ICD-9: 294.20 09/08/2024 Active HTN (hypertension) ICD-10: I10 ICD-9: 401.9 09/08/2024 Active Hypothyroid ICD-10: E03.9 ICD-9: 244.9 09/08/2024 Active Insomnia ICD-10: G47.00 ICD-9: 780.52 09/08/2024 Active Left elbow pain SNOMED CT: 33597307 ICD-10: M25.522 ICD-9: 719.42 09/08/2024 Active Urinary frequency SNOMED CT: 661753966 ICD-10: R35.0 ICD-9: 788.41 09/08/2024 Active Frailty [...] Date Status Fill Instructions miscellaneous medical supply [facility] [place] RxNorm: TUNGUYEN DM LIQ 20-400ML Take 10 Milliliter(s) Oral BID as needed 09/09/19 No Stop Date Active Pain Reliever Plus 250 mg-250 mg-65 mg tablet RxNorm: 507828 Take 1 Tablet(s) Oral QD as needed 09/09/19 No Stop Date Active cefdinir 300 mg capsule RxNorm: 960559 Take 1 Capsule(s) Oral BID 09/09/19 25 025 Active trazodone 50 mg tablet RxNorm: 681767 Take 1 Tablet(s) Oral QHS every night at bedtime as needed 09/09/19 25 026 Active loperamide 2 mg tablet RxNorm: 571087 Take 1 Tablet(s) Oral BID as needed 09/09/19 25 025 Active cefdinir 300 mg capsule RxNorm: 142527 Take 1 Capsule(s) Oral BID 09/09/19 25 025 Inactive trazodone 50 mg tablet RxNorm: 708084 Take 1 Tablet(s) Oral QHS every night at bedtime 09/08/19 25 025 Inactive Calmoseptine 0.44 %-20.6 % topical ointment RxNorm: 4869915 Apply Topical TID as needed to Buttocks and affected areas 08/26/19 25 025 Active Calmoseptine 0.44 %-20.6 % topical ointment RxNorm: 8426439 Apply ointment Topical TID as needed to Buttocks and affected areas 08/26/19 25 025 Inactive ondansetron 4 mg disintegrating tablet RxNorm: 460077 Take 1 Tablet(s) Oral Q4H every four hours as needed 08/25/19 25 025 Inactive ondansetron 4 mg disintegrating tablet RxNorm: 952679 Take 1 Tablet(s) Oral Q4H every four hours as needed 08/25/19 25 025 Inactive sertraline 100 mg tablet RxNorm: 468666 Take 1 Tablet(s) Oral QD 08/14/19 25 025 Inactive REFILL REQUEST FOR CYCLE THAT STARTS ON 09/11/24. THANK YOU. donepezil 5 mg tablet RxNorm: 807573 TAKE ONE-HALF TABLET (2.5MG) BY MOUTH ONCE DAILY 07/20/19 25 049 Active CYCLE FILL REFILL REQUEST FOR CYCLE FILL THAT STARTS 08/14/2024 Senexon-S 8.6 mg-50 mg tablet RxNorm: 2291914 Take 1 Tablet(s) Oral BID as needed 06/30/20 24 028 Active risperidone 1 mg tablet RxNorm: 157221 Take 1 Tablet(s) Oral BID 06/26/20 24 025 Active memantine 5 mg tablet RxNorm: 514090 TAKE ONE-HALF TABLET (2.5MG) BY MOUTH TWICE DAILY 06/23/20 24 049 Active REFILL REQUEST FOR CYCLE THAT BEGINS 07/17, THANK YOU risperidone 0.5 mg tablet RxNorm: 170143 Take 1 Tablet(s) Oral QAM every morning 03/14/20 24 024 Inactive acetaminophen 500 mg tablet RxNorm: 316385 Take 2 Tablet(s) Oral TID as needed 02/22/20 24 No Stop Date Active risperidone 1 mg tablet RxNorm: 502504 Take 1 Tablet(s) Oral HS at bed time 02/22/20 24 024 Inactive acetaminophen 500 mg tablet RxNorm: 729727 Take 2 Tablet(s) Oral TID as needed 02/22/20 24 024 Inactive sertraline 100 mg tablet RxNorm: 507210 Take 1 Tablet(s) Oral QD Take w/ 50mg tablet 01/27/20 24 025 Active sertraline 50 mg tablet RxNorm: 194235 Take 1 Tablet(s) Oral QD Take w/ 100mg tablet 01/27/20 24 025 Active acetaminophen 500 mg tablet RxNorm: 971763 Take 2 Tablet(s) Oral TID as needed 01/27/20 24 024 Inactive amlodipine 5 mg tablet RxNorm: 472251 Take 1 Tablet(s) Oral QAM every morning 01/09/20 24 048 Active REFILL REQUEST FOR CYCLE THAT BEGINS 01/30, THANK YOU! levothyroxine 50 mcg tablet RxNorm: 185720 Take 1 Tablet(s) Oral QD BEFORE BREAKFAST 01/09/20 24 048 Active REFILL REQUEST FOR CYCLE THAT BEGINS 01/30, THANK YOU! cholecalciferol (vitamin D3) 50 mcg (2,000 unit) tablet RxNorm: 299369 Take 1 Tablet(s) Oral QAM every morning 01/09/20 24 048 Active REFILL REQUEST FOR CYCLE THAT BEGINS 01/30, THANK YOU! risperidone 0.5 mg tablet RxNorm: 565718 Take 1 Tablet(s) Oral BID 01/09/20 24 024 Inactive REFILL REQUEST FOR CYCLE THAT BEGINS 01/30, THANK YOU! sertraline 50 mg tablet RxNorm: 139754 TAKE 1 TABLET BY MOUTH ONCE DAILY. TAKE ALONG WITH 100 MG TABLET DAILY FOR A TOTAL DOSE OF 150 MG 01/09/20 24 024 Inactive REFILL REQUEST FOR CYCLE THAT BEGINS 01/30, THANK YOU! risperidone 0.5 mg tablet RxNorm: 825678 Take 1 Tablet(s) Oral BID 01/07/20 24 024 Inactive levofloxacin 500 mg tablet RxNorm: 646139 Take 1 Tablet(s) Oral QD 12/31/19 24 024 Inactive acetaminophen 500 mg tablet RxNorm: 371112 Take 2 Tablet(s) Oral TID 12/31/19 24 024 Inactive levofloxacin 500 mg tablet RxNorm: 413487 Take 1 Tablet(s) Oral QD 12/31/19 24 024 Inactive divalproex ER 250 mg tablet,extended release 24 hr RxNorm: 6133751 TAKE 1 TABLET BY MOUTH AT BEDTIME HAZARDOUS DRUG-DOUBLE GLOVE 10/21/19 24 048 Active CYCLE FILL REFILL REQUEST FOR CYCLE FILL THAT STARTS 11/08/2023. risperidone 1 mg tablet RxNorm: 946699 Take 1 Tablet(s) Oral BID 10/21/19 24 024 Inactive CYCLE FILL REFILL REQUEST FOR CYCLE FILL THAT STARTS 11/08/2023. acetaminophen 500 mg tablet RxNorm: 587981 Take 2 Tablet(s) Oral BID as needed 09/13/19 24 024 Inactive Tylenol Extra Strength 500 mg tablet RxNorm: 091419 Take 2 Tablet(s) Oral BID as needed 09/13/19 24 024 Inactive trazodone 50 mg tablet RxNorm: 586741 Take 1 Tablet(s) Oral QHS every night at bedtime 09/13/19 24 024 Inactive quetiapine 100 mg tablet RxNorm: 720351 Take 1.5 Tablet(s) Oral HS at bed time 09/13/19 24 024 Inactive Senexon-S 8.6 mg-50 mg tablet RxNorm: 2345316 Take 1 Tablet(s) Oral BID as needed 09/13/19 24 025 Inactive sertraline 100 mg tablet RxNorm: 120414 Take 1.5 Tablet(s) Oral QD 09/13/19 24 024 Inactive Pain Reliever Plus 250 mg-250 mg-65 mg tablet RxNorm: 692334 Take 2 Tablet(s) Oral QD as needed 09/13/19 24 024 Inactive sertraline 100 mg tablet RxNorm: 301429 Take 1 Tablet(s) Oral QD 07/29/19 24 024 Inactive Please authorize cycle refill. Thanks. acetaminophen 500 mg tablet RxNorm: 610676 Take 2 Tablet(s) Oral BID as needed 07/20/19 24 024 Inactive acetaminophen 500 mg tablet RxNorm: 500227 Take 2 Tablet(s) Oral BID as needed 07/20/19 24 024 Inactive sertraline 100 mg tablet RxNorm: 374497 Take 1 Tablet(s) Oral QD 07/13/19 24 024 Inactive donepezil 5 mg tablet RxNorm: 791909 TAKE ONE-HALF TABLET (2.5MG) BY MOUTH ONCE DAILY 07/05/20 23 023 Inactive Cycle refill request. Cycle restarts (07/19/23). risperidone 1 mg tablet RxNorm: 857963 Take 1 Tablet(s) Oral HS at bed time 06/25/20 Inactive trazodone 50 mg tablet RxNorm: 396736 Take 1 Tablet(s) Oral QHS every night at bedtime as needed 06/25/20 024 Inactive quetiapine 25 mg tablet RxNorm: 688083 Take 1 Tablet(s) Oral Q4H every four hours as needed 06/25/20 024 Inactive Senna-S 8.6 mg-50 mg tablet RxNorm: 366640 Take 1 Tablet(s) Oral BID as needed 06/25/20 023 Inactive trazodone 50 mg tablet RxNorm: 324867 Take 1 Tablet(s) Oral QHS every night at bedtime as needed 06/25/20 023 Inactive Senna-S 8.6 mg-50 mg tablet RxNorm: 565780 Take 1 Tablet(s) Oral BID as needed 06/25/20 024 Inactive acetaminophen 500 mg tablet RxNorm: 427401 Take 2 Tablet(s) Oral BID as needed 06/18/20 024 Inactive acetaminophen 500 mg tablet RxNorm: 386765 Take 2 Tablet(s) Oral BID as needed 06/18/20 23 023 Inactive Excedrin Extra Strength 250 mg-250 mg-65 mg tablet RxNorm: 444641 Take 2 Tablet(s) Oral QD as needed 06/18/20 23 023 Inactive Excedrin Extra Strength 250 mg-250 mg-65 mg tablet RxNorm: 032328 Take 2 Tablet(s) Oral QD as needed 06/18/20 024 Inactive risperidone 1 mg tablet RxNorm: 005072 Take 1 Tablet(s) Oral BID 06/04/20 023 Inactive quetiapine 25 mg tablet RxNorm: 695396 Take 1 Tablet(s) Oral BID as needed 06/04/20 023 Inactive trazodone 50 mg tablet RxNorm: 063730 Take 1 Tablet(s) Oral QHS every night at bedtime 06/04/20 023 Inactive donepezil 10 mg tablet RxNorm: 331622 Take 1 Tablet(s) Oral QD 06/04/20 024 Inactive risperidone 1 mg tablet RxNorm: 787909 Take 1 Tablet(s) Oral BID as needed 06/04/20 023 Inactive Senexon-S 8.6 mg-50 mg tablet RxNorm: 4408853 Take 1 Tablet(s) Oral BID 06/03/20 023 Inactive Please authorize quantity 90 day supply with PRN refills for assisted living patient. Their cycle restarts 06/14/23. Thank you! memantine 5 mg tablet RxNorm: 125464 TAKE ONE-HALF TABLET (2.5MG) BY MOUTH TWICE DAILY 06/03/20 023 Inactive Please authorize quantity 90 day supply with PRN refills for assisted living patient. Their cycle restarts 06/14/23. Thank you! divalproex 125 mg capsule,delayed release sprinkle RxNorm: 0352585 TAKE 4 CAPSULES (500MG) BY MOUTH AT BEDTIME 06/03/20 024 Inactive Please authorize quantity 90 day supply with PRN refills for assisted living patient. Their cycle restarts 06/14/23. Thank you! sertraline 50 mg tablet RxNorm: 241708 Take 1 Tablet(s) Oral QD 06/03/20 024 Inactive Please authorize quantity 90 day supply with PRN refills for assisted living patient. Their cycle restarts 06/14/23. Thank you! naproxen 500 mg tablet RxNorm: 752609 Take 1 Tablet(s) Oral BID 01/23/20 023 Inactive naproxen 500 mg tablet RxNorm: 903977 Take 1 Tablet(s) Oral BID 01/23/20 23 023 Inactive naproxen 500 mg tablet RxNorm: 512006 Take 1 Tablet(s) Oral BID 01/23/20 023 Inactive mirtazapine 15 mg tablet RxNorm: 266689 Take 1 Tablet(s) Oral HS at bed time 01/01/20 023 Inactive CYCLE FILL REQUEST FOR CYCLE THAT STARTS 01/04/2023 escitalopram 10 mg tablet RxNorm: 735154 Take 1 Tablet(s) Oral QAM every morning 12/14/19 23 023 Inactive Cycle refill request. Cycle restarts (01/04/23). cholecalciferol (vitamin D3) 50 mcg (2,000 unit) tablet RxNorm: 090686 Take 1 Tablet(s) Oral QAM every morning 12/14/19 23 023 Inactive Cycle refill request. Cycle restarts (01/04/23). melatonin 10 mg sublingual tablet RxNorm: 4090585 TAKE 1 TABLET BY MOUTH AT BEDTIME NOTE DOSAGE/STRENGTH* 12/14/19 023 Inactive Cycle refill request. Cycle restarts (01/04/23). rivastigmine 1.5 mg capsule RxNorm: 732964 Take 1 Capsule(s) Oral BID 12/14/19 023 Inactive Cycle refill request. Cycle restarts (01/04/23). quetiapine 100 mg tablet RxNorm: 655954 Take 1 Tablet(s) Oral HS at bed time 12/14/19 23 023 Inactive Cycle refill request. Cycle restarts (01/04/23). levothyroxine 50 mcg tablet RxNorm: 185598 TAKE 1 TABLET BY MOUTH ONCE DAILY BEFORE BREAKFAST 12/14/19 23 023 Inactive Cycle refill request. Cycle restarts (01/04/23). amlodipine 5 mg tablet RxNorm: 346022 Take 1 Tablet(s) Oral QAM every morning 12/14/19 23 023 Inactive Cycle refill request. Cycle restarts (01/04/23). buspirone 15 mg tablet RxNorm: 748091 Take 1 Tablet(s) Oral BID 12/14/19 23 023 Inactive Cycle refill request. Cycle restarts (01/04/23). amitriptyline 10 mg tablet RxNorm: 370573 Take 1 Tablet(s) Oral HS at bed time 12/14/19 023 Inactive Cycle refill request. Cycle restarts (01/04/23). levofloxacin 500 mg tablet RxNorm: 545913 Take 1 Tablet(s) Oral QD 11/24/19 023 Inactive levofloxacin 500 mg tablet RxNorm: 084703 Take 1 Tablet(s) Oral QD 11/24/19 023 Inactive levothyroxine 50 mcg tablet RxNorm: 442843 Take 1 Tablet(s) Oral QD before Breakfast 11/18/19 023 Inactive amitriptyline 10 mg tablet RxNorm: 434965 Take 1 Tablet(s) Oral QHS every night at bedtime 11/18/19 023 Inactive acetaminophen 500 mg tablet RxNorm: 639448 2 Tablet(s) Oral TID as needed 11/18/19 023 Inactive amlodipine 5 mg tablet RxNorm: 278641 Take 1 Tablet(s) Oral QAM every morning 11/18/19 023 Inactive melatonin 5 mg tablet RxNorm: 400254 Give 1 Tablet(s) Oral QHS every night at bedtime 11/18/19 023 Inactive buspirone 15 mg tablet RxNorm: 688858 Take 1 Tablet(s) Oral BID 11/18/19 023 Inactive Seroquel 25 mg tablet RxNorm: 446562 Take 1 Tablet(s) Oral QHS every night at bedtime 11/18/19 023 Inactive cholecalciferol (vitamin D3) 50 mcg (2,000 unit) tablet RxNorm: 932874 Take 1 Tablet(s) Oral QD 11/18/19 023 Inactive rivastigmine 1.5 mg capsule RxNorm: 487464 Take 2 Capsule(s) Oral BID 11/18/19 023 Inactive mirtazapine 15 mg tablet RxNorm: 554944 Take 1 Tablet(s) Oral QHS every night at bedtime 11/18/19 023 Inactive aspirin-acetaminoph en-caffeine 250 mg-250 mg-65 mg tablet RxNorm: 363972 Take 2 Tablet(s) Oral QD as needed 11/18/19 023 Inactive escitalopram 10 mg tablet RxNorm: 572511 Take 1 Tablet(s) Oral QD 11/18/19 023 Inactive Medication Administered No Medication Administered data Immunizations Vaccine Codes Dose Date Status Influenza CVX: 205 1.0 04/06/2022 Covid-19 (Mastodon C mR NA, LNP-S, PF, 30 mcg/0.3 mL [...] WPtel: [address], [address] [id number] Referral Order Note Incomplete Instructions Comment Date Elderly female residing in [facility]. PMHx: dementia, cluster B personality traits, depression, hypothyroidism, HTN, anxiety, suicidal ideationsPOLST: FULL CODEFred Anatoly-spouse, Bvug: November/ham-therapist: weekly calls usually on 1:1 visits 3 times weekly 01/28/2024
--- OUTSIDE RECORDS SUMMARY | 2024-09-10 16:35 | XMS_ITS | CCD ---
Author Name Aida Sr CNP Address [address] [facility] [address] [place] [address] Phone Organization [facility] Phone Care Team Providers Care Business Operations Specialist Name Role Phone Aida Sr CNP Primary Care Provider Unavaila ble [facility] [facility] Chronic [facility] Management Unavai lable Summary Purpose DataExchange Insurance Providers Payer name Policy type / Coverage type Covered constitution party ID Effective Begin Date Effective End Date [employer] Commercial Insurance [id number] Unknown Family History Family History data not [...] Tylenol Extra Strength 500 mg tablet RxNorm: 812573 Take 2 Tablet(s) Oral BID as needed 09/13/19 24 024 Inactive trazodone 50 mg tablet RxNorm: 810264 Take 1 Tablet(s) Oral QHS every night at bedtime 09/13/19 24 024 Inactive quetiapine 100 mg tablet RxNorm: 971635 Take 1.5 Tablet(s) Oral HS at bed time 09/13/19 24 024 Inactive Senexon-S 8.6 mg-50 mg tablet RxNorm: 2870746 Take 1 Tablet(s) Oral BID as needed 09/13/19 24 025 Inactive sertraline 100 mg tablet RxNorm: 970928 Take 1.5 Tablet(s) Oral QD 09/13/19 24 024 Inactive Pain Reliever Plus 250 mg-250 mg-65 mg tablet RxNorm: 973651 Take 2 Tablet(s) Oral QD as needed 09/13/19 24 024 Inactive acetaminophen 500 mg tablet RxNorm: 268921 Take 2 Tablet(s) Oral BID as needed 09/13/19 24 024 Inactive sertraline 100 mg tablet RxNorm: 021390 Take 1 Tablet(s) Oral QD 07/29/19 24 Inactive Please authorize cycle refill. Thanks. acetaminophen 500 mg tablet RxNorm: 962863 Take 2 Tablet(s) Oral BID as needed 07/20/19 24 024 Inactive acetaminophen 500 mg tablet RxNorm: 101352 Take 2 Tablet(s) Oral BID as needed 07/20/19 24 024 Inactive sertraline 100 mg tablet RxNorm: 244720 Take 1 Tablet(s) Oral QD 07/13/19 024 Inactive donepezil 5 mg tablet RxNorm: 325852 TAKE ONE-HALF TABLET (2.5MG) BY MOUTH ONCE DAILY 07/05/20 023 Inactive Cycle refill request. Cycle restarts (07/19/23). risperidone 1 mg tablet RxNorm: 477809 Take 1 Tablet(s) Oral HS at bed time 06/25/20 024 Inactive quetiapine 25 mg tablet RxNorm: 788306 Take 1 Tablet(s) Oral Q4H every four hours as needed 06/25/20 23 024 Inactive trazodone 50 mg tablet RxNorm: 994499 Take 1 Tablet(s) Oral QHS every night at bedtime as needed 06/25/20 23 024 Inactive Senna-S 8.6 mg-50 mg tablet RxNorm: 658182 Take 1 Tablet(s) Oral BID as needed 06/25/20 23 023 Inactive trazodone 50 mg tablet RxNorm: 084647 Take 1 Tablet(s) Oral QHS every night at bedtime as needed 06/25/20 23 023 Inactive Senna-S 8.6 mg-50 mg tablet RxNorm: 563202 Take 1 Tablet(s) Oral BID as needed 06/25/20 024 Inactive acetaminophen 500 mg tablet RxNorm: 885597 Take 2 Tablet(s) Oral BID as needed 06/18/20 23 024 Inactive acetaminophen 500 mg tablet RxNorm: 179975 Take 2 Tablet(s) Oral BID as needed 06/18/20 023 Inactive Excedrin Extra Strength 250 mg-250 mg-65 mg tablet RxNorm: 961963 Take 2 Tablet(s) Oral QD as needed 06/18/20 023 Inactive Excedrin Extra Strength 250 mg-250 mg-65 mg tablet RxNorm: 250435 Take 2 Tablet(s) Oral QD as needed 06/18/20 024 Inactive risperidone 1 mg tablet RxNorm: 560817 Take 1 Tablet(s) Oral BID 06/04/20 023 Inactive quetiapine 25 mg tablet RxNorm: 299643 Take 1 Tablet(s) Oral BID as needed 06/04/20 023 Inactive trazodone 50 mg tablet RxNorm: 153917 Take 1 Tablet(s) Oral QHS every night at bedtime 06/04/20 023 Inactive donepezil 10 mg tablet RxNorm: 909493 Take 1 Tablet(s) Oral QD 06/04/20 024 Inactive risperidone 1 mg tablet RxNorm: 786142 Take 1 Tablet(s) Oral BID as needed 06/04/20 023 Inactive Senexon-S 8.6 mg-50 mg tablet RxNorm: 5015573 Take 1 Tablet(s) Oral BID 06/03/20 023 Inactive Please authorize quantity 90 day supply with PRN refills for assisted living patient. Their cycle restarts 06/14/23. Thank you! memantine 5 mg tablet RxNorm: 267743 TAKE ONE-HALF TABLET (2.5MG) BY MOUTH TWICE DAILY 06/03/20 023 Inactive Please authorize quantity 90 day supply with PRN refills for assisted living patient. Their cycle restarts 06/14/23. Thank you! divalproex 125 mg capsule,delayed release sprinkle RxNorm: 4177603 TAKE 4 CAPSULES (500MG) BY MOUTH AT BEDTIME 06/03/20 024 Inactive Please authorize quantity 90 day supply with PRN refills for assisted living patient. Their cycle restarts 06/14/23. Thank you! sertraline 50 mg tablet RxNorm: 631304 Take 1 Tablet(s) Oral QD 06/03/20 024 Inactive Please authorize quantity 90 day supply with PRN refills for assisted living patient. Their cycle restarts 06/14/23. Thank you! naproxen 500 mg tablet RxNorm: 735658 Take 1 Tablet(s) Oral BID 01/23/20 023 Inactive naproxen 500 mg tablet RxNorm: 895224 Take 1 Tablet(s) Oral BID 01/23/20 23 023 Inactive naproxen 500 mg tablet RxNorm: 830875 Take 1 Tablet(s) Oral BID 01/23/20 023 Inactive mirtazapine 15 mg tablet RxNorm: 590993 Take 1 Tablet(s) Oral HS at bed time 01/01/20 023 Inactive CYCLE FILL REQUEST FOR CYCLE THAT STARTS 01/04/2023 escitalopram 10 mg tablet RxNorm: 881229 Take 1 Tablet(s) Oral QAM every morning 12/14/19 023 Inactive Cycle refill request. Cycle restarts (01/04/23). cholecalciferol (vitamin D3) 50 mcg (2,000 unit) tablet RxNorm: 221151 Take 1 Tablet(s) Oral QAM every morning 12/14/19 23 023 Inactive Cycle refill request. Cycle restarts (01/04/23). melatonin 10 mg sublingual tablet RxNorm: 2748417 TAKE 1 TABLET BY MOUTH AT BEDTIME NOTE DOSAGE/STRENGTH* 12/14/19 023 Inactive Cycle refill request. Cycle restarts (01/04/23). rivastigmine 1.5 mg capsule RxNorm: 073132 Take 1 Capsule(s) Oral BID 12/14/19 023 Inactive Cycle refill request. Cycle restarts (01/04/23). quetiapine 100 mg tablet RxNorm: 624422 Take 1 Tablet(s) Oral HS at bed time 12/14/19 23 023 Inactive Cycle refill request. Cycle restarts (01/04/23). levothyroxine 50 mcg tablet RxNorm: 509572 TAKE 1 TABLET BY MOUTH ONCE DAILY BEFORE BREAKFAST 12/14/19 23 023 Inactive Cycle refill request. Cycle restarts (01/04/23). amlodipine 5 mg tablet RxNorm: 095339 Take 1 Tablet(s) Oral QAM every morning 12/14/19 23 023 Inactive Cycle refill request. Cycle restarts (01/04/23). buspirone 15 mg tablet RxNorm: 305765 Take 1 Tablet(s) Oral BID 12/14/19 23 023 Inactive Cycle refill request. Cycle restarts (01/04/23). amitriptyline 10 mg tablet RxNorm: 166873 Take 1 Tablet(s) Oral HS at bed time 12/14/19 23 023 Inactive Cycle refill request. Cycle restarts (01/04/23). levofloxacin 500 mg tablet RxNorm: 191674 Take 1 Tablet(s) Oral QD 11/24/19 23 023 Inactive levofloxacin 500 mg tablet RxNorm: 448424 Take 1 Tablet(s) Oral QD 11/24/19 23 023 Inactive levothyroxine 50 mcg tablet RxNorm: 838376 Take 1 Tablet(s) Oral QD before Breakfast 11/18/19 23 023 Inactive amitriptyline 10 mg tablet RxNorm: 420942 Take 1 Tablet(s) Oral QHS every night at bedtime 11/18/19 23 023 Inactive acetaminophen 500 mg tablet RxNorm: 013994 2 Tablet(s) Oral TID as needed 11/18/19 23 023 Inactive amlodipine 5 mg tablet RxNorm: 159633 Take 1 Tablet(s) Oral QAM every morning 11/18/19 23 023 Inactive melatonin 5 mg tablet RxNorm: 412545 Give 1 Tablet(s) Oral QHS every night at bedtime 11/18/19 23 023 Inactive buspirone 15 mg tablet RxNorm: 177388 Take 1 Tablet(s) Oral BID 11/18/19 23 023 Inactive Seroquel 25 mg tablet RxNorm: 249370 Take 1 Tablet(s) Oral QHS every night at bedtime 11/18/19 023 Inactive cholecalciferol (vitamin D3) 50 mcg (2,000 unit) tablet RxNorm: 913462 Take 1 Tablet(s) Oral QD 11/18/19 023 Inactive rivastigmine 1.5 mg capsule RxNorm: 473275 Take 2 Capsule(s) Oral BID 11/18/19 023 Inactive mirtazapine 15 mg tablet RxNorm: 682813 Take 1 Tablet(s) Oral QHS every night at bedtime 11/18/19 023 Inactive aspirin-acetaminoph en-caffeine 250 mg-250 mg-65 mg tablet RxNorm: 560119 Take 2 Tablet(s) Oral QD as needed 11/18/19 023 Inactive escitalopram 10 mg tablet RxNorm: 037297 Take 1 Tablet(s) Oral QD 11/18/19 023 Inactive Medication Administered No Medication Administered data Immunizations Vaccine Codes Dose Date Status Influenza CVX: 205 1.0 04/06/2022 Covid-19 (RFEyeD mR NA, LNP-S, PF, 30 mcg/0.3 mL [...] 33 1.0 09/04/2000 Vital Signs Date Vital 09/17/2023 Blood Pressure 1: 150/78 Code: 8480-6 Heart Rate 1: 62 bpm Code: 8867-4 Respiratory Rate: 19 bpm Weight: 170 lbs Code: 3141-9 Reason For Visit No Reason For Visit data Encounters Encounter Performer Location Location Address Codes Date ([address]) Home or Residence Visit Est Pt - Moderate Level, 40 mins Diagnosis: Dementia[ICD10: F03.90] Diagnosis: Depression, major, recurrent, 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] Diagnosis: Gait instability[ICD10 : R26.81] Aida Sr [facility] [address] [address] CPT-4: 22949 09/17/2023 Plan of Care Planned Activity Notes Codes Status Date Patient Education: Patient Medication Summary Completed 09/17/2023 Patient Education: Influenza Complet ed 09/17/2023 Patient Education: Dementia Complete d 09/17/2023 Appointment: Aida Sr WPtel: [address] [place], [place] [phone] [place] F/U 07/23/2023 Appointment: Aida Sr WPtel: [address] [place], [place] [phone] [place] F/U 06/25/2023 Appointment: Bam Frey: [address] [place], [place] [phone] SDV 01/22/2023 Appointment: Aida Sr WPtel: [address] [facility] [address] [facility] [id number] NPAWV 11/20/2022 Referral: General Psychiatrist Referral Patient/Family Scheduling Appointment Referral: VIA Orthopedics- I n Home Visits WPtel: [address], [address] [id number] Referral Order Note Incomplete Instructions Comment Date Elderly female residing in [facility] assisted living at [facility]. PMHx: dementia, cluster B personality traits, depression, hypothyroidism, HTN, anxiety, suicidal ideationsPOLST: FULL CODEFred Anatoly-spouse, Bjzv: November/Scotty-therapist: weekly calls usually on -:1 visits 3 times weekly 01/28/2024 Depression, major, recurrent , severe with psychosis sertraline 150mg qd. Crying today during visit. I want out of here. 09/13/23 Psych restarted depakote 250mg BID. Family switched psych providers, previously at [facility], now being followed by Mary Ellen Piña DNP with [facility]. Gait instability Ambulatory without aids. Increase in lower extremity weakness. Will consult PT to evaluate and treat. Face to face completed today. Dementia aricept 10mg qd, namenda 2.5mg BID. Appreciated [facility]. 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 Safe in [facility]/ setting with 24 hour nursing supervision. Anticipate ongoing cognitive and physical decline with disease progression. Continue current care plan and reassessment in one month. Facility to update with any changes in the condition. . 09/17/2023
--- OUTSIDE RECORDS SUMMARY | 2024-09-10 16:35 | XMS_ITS | CCD ---
Author Name Aida Sr CNP Address [address] [facility] [address] [facility] [address] [place] [address] Phone Organization [facility] Phone Care Team Providers Care Practice Specialist Name Role Phone Orin RADHAAida Primary Care Provider Unavaila ble Orin RADHAAida Chronic Care Management Unavai lable Summary Purpose DataExchange Insurance Providers Payer name Policy type / Coverage type Covered democrat ID Effective Begin Date Effective End Date [employer] Commercial Insurance [id number] Unknown Family history Runs in the family Diagnosis Age At Onset No Known Diseases N/A Social History Social History Element Codes Description Effec tive Dates Marital status Unknown 01/28/2024 Living arrangements Unknown Memory Care 01/28/[address]: 647241319 Never smoker 01/[address]: 260991187 No Alcohol Consum ption 01/28/2024 Sexually Active? [...] [facility] Dementia ICD-10: F03.90 ICD-9: 294.20 05/05/2024 Active Paresis ICD-10: G83.9 ICD-9: 344.9 05/05/2024 Active Depression, major, recurrent , severe with [...] Fill Instructions risperidone 0.5 mg tablet RxNorm: 887081 Take 1 Tablet(s) Oral QAM every morning 03/14/20 24 024 Inactive risperidone 1 mg tablet RxNorm: 511841 Take 1 Tablet(s) Oral HS at bed time 02/22/20 24 024 Inactive acetaminophen 500 mg tablet RxNorm: 935008 Take 2 Tablet(s) Oral TID as needed 02/22/20 24 No Stop Date Active acetaminophen 500 mg tablet RxNorm: 548781 Take 2 Tablet(s) Oral TID as needed 02/22/20 24 024 Inactive sertraline 100 mg tablet RxNorm: 496041 Take 1 Tablet(s) Oral QD Take w/ 50mg tablet 01/27/20 24 025 Active sertraline 50 mg tablet RxNorm: 891451 Take 1 Tablet(s) Oral QD Take w/ 100mg tablet 01/27/20 24 025 Active acetaminophen 500 mg tablet RxNorm: 837379 Take 2 Tablet(s) Oral TID as needed 01/27/20 24 024 Inactive amlodipine 5 mg tablet RxNorm: 417783 Take 1 Tablet(s) Oral QAM every morning 01/09/20 24 048 Active REFILL REQUEST FOR CYCLE THAT BEGINS 01/30, THANK YOU! levothyroxine 50 mcg tablet RxNorm: 579023 Take 1 Tablet(s) Oral QD BEFORE BREAKFAST 01/09/20 24 048 Active REFILL REQUEST FOR CYCLE THAT BEGINS 01/30, THANK YOU! cholecalciferol (vitamin D3) 50 mcg (2,000 unit) tablet RxNorm: 709598 Take 1 Tablet(s) Oral QAM every morning 01/09/20 24 048 Active REFILL REQUEST FOR CYCLE THAT BEGINS 01/30, THANK YOU! risperidone 0.5 mg tablet RxNorm: 087537 Take 1 Tablet(s) Oral BID 01/09/20 24 024 Inactive REFILL REQUEST FOR CYCLE THAT BEGINS 01/30, THANK YOU! sertraline 50 mg tablet RxNorm: 053366 TAKE 1 TABLET BY MOUTH ONCE DAILY. TAKE ALONG WITH 100 MG TABLET DAILY FOR A TOTAL DOSE OF 150 MG 01/09/20 24 024 Inactive REFILL REQUEST FOR CYCLE THAT BEGINS 01/30, THANK YOU! risperidone 0.5 mg tablet RxNorm: 550098 Take 1 Tablet(s) Oral BID 01/07/20 24 024 Inactive levofloxacin 500 mg tablet RxNorm: 669382 Take 1 Tablet(s) Oral QD 12/31/19 24 024 Inactive acetaminophen 500 mg tablet RxNorm: 306549 Take 2 Tablet(s) Oral TID 12/31/19 24 024 Inactive levofloxacin 500 mg tablet RxNorm: 826535 Take 1 Tablet(s) Oral QD 12/31/19 24 024 Inactive divalproex ER 250 mg tablet,extended release 24 hr RxNorm: 1308273 TAKE 1 TABLET BY MOUTH AT BEDTIME HAZARDOUS DRUG-DOUBLE GLOVE 10/21/19 24 048 Active CYCLE FILL REFILL REQUEST FOR CYCLE FILL THAT STARTS 11/08/2023. risperidone 1 mg tablet RxNorm: 568524 Take 1 Tablet(s) Oral BID 10/21/19 24 024 Inactive CYCLE FILL REFILL REQUEST FOR CYCLE FILL THAT STARTS 11/08/2023. Senexon-S 8.6 mg-50 mg tablet RxNorm: 7067092 Take 1 Tablet(s) Oral BID as needed 09/13/19 24 025 Inactive acetaminophen 500 mg tablet RxNorm: 364794 Take 2 Tablet(s) Oral BID as needed 09/13/19 24 024 Inactive Tylenol Extra Strength 500 mg tablet RxNorm: 959673 Take 2 Tablet(s) Oral BID as needed 09/13/19 24 024 Inactive trazodone 50 mg tablet RxNorm: 410890 Take 1 Tablet(s) Oral QHS every night at bedtime 09/13/19 24 024 Inactive quetiapine 100 mg tablet RxNorm: 488708 Take 1.5 Tablet(s) Oral HS at bed time 09/13/19 24 024 Inactive sertraline 100 mg tablet RxNorm: 387380 Take 1.5 Tablet(s) Oral QD 09/13/19 24 Inactive Pain Reliever Plus 250 mg-250 mg-65 mg tablet RxNorm: 022463 Take 2 Tablet(s) Oral QD as needed 09/13/19 24 Inactive sertraline 100 mg tablet RxNorm: 290276 Take 1 Tablet(s) Oral QD 07/29/19 24 024 Inactive Please authorize cycle refill. Thanks. acetaminophen 500 mg tablet RxNorm: 511513 Take 2 Tablet(s) Oral BID as needed 07/20/19 24 Inactive acetaminophen 500 mg tablet RxNorm: 592556 Take 2 Tablet(s) Oral BID as needed 07/20/19 Inactive sertraline 100 mg tablet RxNorm: 972276 Take 1 Tablet(s) Oral QD 07/13/19 Inactive donepezil 5 mg tablet RxNorm: 057145 TAKE ONE-HALF TABLET (2.5MG) BY MOUTH ONCE DAILY 07/05/20 Inactive Cycle refill request. Cycle restarts (07/19/23). risperidone 1 mg tablet RxNorm: 400491 Take 1 Tablet(s) Oral HS at bed time 06/25/20 024 Inactive trazodone 50 mg tablet RxNorm: 318359 Take 1 Tablet(s) Oral QHS every night at bedtime as needed 06/25/20 024 Inactive quetiapine 25 mg tablet RxNorm: 189178 Take 1 Tablet(s) Oral Q4H every four hours as needed 06/25/20 23 024 Inactive Senna-S 8.6 mg-50 mg tablet RxNorm: 313748 Take 1 Tablet(s) Oral BID as needed 06/25/20 23 023 Inactive trazodone 50 mg tablet RxNorm: 835972 Take 1 Tablet(s) Oral QHS every night at bedtime as needed 06/25/20 23 023 Inactive Senna-S 8.6 mg-50 mg tablet RxNorm: 693632 Take 1 Tablet(s) Oral BID as needed 06/25/20 23 024 Inactive acetaminophen 500 mg tablet RxNorm: 284288 Take 2 Tablet(s) Oral BID as needed 06/18/20 024 Inactive acetaminophen 500 mg tablet RxNorm: 509845 Take 2 Tablet(s) Oral BID as needed 06/18/20 023 Inactive Excedrin Extra Strength 250 mg-250 mg-65 mg tablet RxNorm: 462896 Take 2 Tablet(s) Oral QD as needed 06/18/20 023 Inactive Excedrin Extra Strength 250 mg-250 mg-65 mg tablet RxNorm: 685488 Take 2 Tablet(s) Oral QD as needed 06/18/20 024 Inactive risperidone 1 mg tablet RxNorm: 447196 Take 1 Tablet(s) Oral BID 06/04/20 023 Inactive quetiapine 25 mg tablet RxNorm: 839338 Take 1 Tablet(s) Oral BID as needed 06/04/20 023 Inactive trazodone 50 mg tablet RxNorm: 524032 Take 1 Tablet(s) Oral QHS every night at bedtime 06/04/20 023 Inactive donepezil 10 mg tablet RxNorm: 806079 Take 1 Tablet(s) Oral QD 06/04/20 024 Inactive risperidone 1 mg tablet RxNorm: 971427 Take 1 Tablet(s) Oral BID as needed 06/04/20 023 Inactive Senexon-S 8.6 mg-50 mg tablet RxNorm: 4684791 Take 1 Tablet(s) Oral BID 06/03/20 023 Inactive Please authorize quantity 90 day supply with PRN refills for assisted living patient. Their cycle restarts 06/14/23. Thank you! memantine 5 mg tablet RxNorm: 640799 TAKE ONE-HALF TABLET (2.5MG) BY MOUTH TWICE DAILY 06/03/20 023 Inactive Please authorize quantity 90 day supply with PRN refills for assisted living patient. Their cycle restarts 06/14/23. Thank you! divalproex 125 mg capsule,delayed release sprinkle RxNorm: 9351687 TAKE 4 CAPSULES (500MG) BY MOUTH AT BEDTIME 06/03/20 024 Inactive Please authorize quantity 90 day supply with PRN refills for assisted living patient. Their cycle restarts 06/14/23. Thank you! sertraline 50 mg tablet RxNorm: 787364 Take 1 Tablet(s) Oral QD 06/03/20 024 Inactive Please authorize quantity 90 day supply with PRN refills for assisted living patient. Their cycle restarts 06/14/23. Thank you! naproxen 500 mg tablet RxNorm: 294500 Take 1 Tablet(s) Oral BID 01/23/20 23 023 Inactive naproxen 500 mg tablet RxNorm: 306701 Take 1 Tablet(s) Oral BID 01/23/20 23 023 Inactive naproxen 500 mg tablet RxNorm: 232447 Take 1 Tablet(s) Oral BID 01/23/20 023 Inactive mirtazapine 15 mg tablet RxNorm: 920187 Take 1 Tablet(s) Oral HS at bed time 01/01/20 023 Inactive CYCLE FILL REQUEST FOR CYCLE THAT STARTS 01/04/2023 escitalopram 10 mg tablet RxNorm: 471450 Take 1 Tablet(s) Oral QAM every morning 12/14/19 023 Inactive Cycle refill request. Cycle restarts (01/04/23). cholecalciferol (vitamin D3) 50 mcg (2,000 unit) tablet RxNorm: 168387 Take 1 Tablet(s) Oral QAM every morning 12/14/19 23 023 Inactive Cycle refill request. Cycle restarts (01/04/23). melatonin 10 mg sublingual tablet RxNorm: 6373463 TAKE 1 TABLET BY MOUTH AT BEDTIME NOTE DOSAGE/STRENGTH* 12/14/19 023 Inactive Cycle refill request. Cycle restarts (01/04/23). rivastigmine 1.5 mg capsule RxNorm: 907658 Take 1 Capsule(s) Oral BID 12/14/19 23 023 Inactive Cycle refill request. Cycle restarts (01/04/23). quetiapine 100 mg tablet RxNorm: 459950 Take 1 Tablet(s) Oral HS at bed time 12/14/19 23 023 Inactive Cycle refill request. Cycle restarts (01/04/23). levothyroxine 50 mcg tablet RxNorm: 943235 TAKE 1 TABLET BY MOUTH ONCE DAILY BEFORE BREAKFAST 12/14/19 23 023 Inactive Cycle refill request. Cycle restarts (01/04/23). amlodipine 5 mg tablet RxNorm: 622795 Take 1 Tablet(s) Oral QAM every morning 12/14/19 23 023 Inactive Cycle refill request. Cycle restarts (01/04/23). buspirone 15 mg tablet RxNorm: 621825 Take 1 Tablet(s) Oral BID 12/14/19 23 023 Inactive Cycle refill request. Cycle restarts (01/04/23). amitriptyline 10 mg tablet RxNorm: 058894 Take 1 Tablet(s) Oral HS at bed time 12/14/19 23 023 Inactive Cycle refill request. Cycle restarts (01/04/23). levofloxacin 500 mg tablet RxNorm: 648754 Take 1 Tablet(s) Oral QD 11/24/19 23 023 Inactive levofloxacin 500 mg tablet RxNorm: 256507 Take 1 Tablet(s) Oral QD 11/24/19 23 023 Inactive levothyroxine 50 mcg tablet RxNorm: 375972 Take 1 Tablet(s) Oral QD before Breakfast 11/18/19 23 023 Inactive amitriptyline 10 mg tablet RxNorm: 563251 Take 1 Tablet(s) Oral QHS every night at bedtime 11/18/19 23 023 Inactive acetaminophen 500 mg tablet RxNorm: 614840 2 Tablet(s) Oral TID as needed 11/18/19 23 023 Inactive amlodipine 5 mg tablet RxNorm: 100244 Take 1 Tablet(s) Oral QAM every morning 11/18/19 23 023 Inactive melatonin 5 mg tablet RxNorm: 257421 Give 1 Tablet(s) Oral QHS every night at bedtime 11/18/19 023 Inactive buspirone 15 mg tablet RxNorm: 899243 Take 1 Tablet(s) Oral BID 11/18/19 023 Inactive Seroquel 25 mg tablet RxNorm: 911458 Take 1 Tablet(s) Oral QHS every night at bedtime 11/18/19 023 Inactive cholecalciferol (vitamin D3) 50 mcg (2,000 unit) tablet RxNorm: 646988 Take 1 Tablet(s) Oral QD 11/18/19 023 Inactive rivastigmine 1.5 mg capsule RxNorm: 923570 Take 2 Capsule(s) Oral BID 11/18/19 023 Inactive mirtazapine 15 mg tablet RxNorm: 068916 Take 1 Tablet(s) Oral QHS every night at bedtime 11/18/19 023 Inactive aspirin-acetaminoph en-caffeine 250 mg-250 mg-65 mg tablet RxNorm: 782532 Take 2 Tablet(s) Oral QD as needed 11/18/19 023 Inactive escitalopram 10 mg tablet RxNorm: 137714 Take 1 Tablet(s) Oral QD 11/18/19 023 Inactive Medication Administered No Medication Administered data Immunizations Vaccine Codes Dose Date Status Influenza CVX: 205 1.0 04/06/2022 Covid-19 ([place] mR NA, LNP-S, PF, 30 mcg/0.3 mL [...] 33 1.0 09/04/2000 Vital Signs Date Vital 05/05/2024 Blood Pressure 1: 126/59 Code: 8480-6 Heart Rate 1: 65 bpm Code: 8867-4 Respiratory Rate: 16 bpm Temperature: 35.7 (C) / 96.3 (F) Weight: 158 lbs 3 oz Code: 3141-9 Functional Status [...] Encounter Performer Location Location Address Codes Date ([address]) Home or Residence Visit Est Pt - Moderate Level, 40 mins Diagnosis: Dementia[ICD10: F03.90] Diagnosis: Paresis[ICD10: G83.9] Aida Sr [facility] [address] [address] CPT-4: 98301 05/05/2024 Plan of Care Planned Activity Notes Codes Status Date Patient Education: Patient Medication Summary Completed 05/05/2024 Patient Education: Influenza Complet ed 05/05/2024 Appointment: Aida Sr WPtel: [address] [place] [address] [id number] [place] F/U 12/31/2023 Appointment: Aida Sr WPtel: [address] [place], [place] [phone] [place] F/U 09/17/2023 Appointment: OrinEriccy WPtel: [address] [place], [place] [phone] [place] F/U 07/23/2023 Appointment: Aida Sr WPtel: [address] [place], [place] [phone] [place] F/U 06/25/2023 Appointment: Bam Frey: [address] [place], [place] [phone] [place] SDV 01/22/2023 Appointment: Aida Sr WPtel: [address] [place], [place] [phone] [place] NPAWV 11/20/2022 Referral: General Psychiatrist Referral Patient/Family Scheduling Appointment Referral: VIA Orthopedics- I n Home Visits WPtel: [address], [address] [id number] Referral Order Note Incomplete Instructions Comment Date Elderly female residing in [facility] assisted living at [facility]. PMHx: dementia, cluster B personality traits, depression, hypothyroidism, HTN, anxiety, suicidal ideationsPOLST: FULL CODEFred Anatoly-spouse, Vayl: November/-therapist: weekly calls usually on :1 visits 3 times weekly 01/28/2024 Paresis Increase in lower extremity weakness. Walker with ambulation. Will consult PT/OT to evaluate and treat. Face to face completed. Continue fall precautions. Staff to report falls & change in condition, weakness, loss of balance, change in gait Dementia Ongoing decline. Will consult PT/OT to evaluate and treat. Face to face completed. Continue donepezil 10mg qd, namenda 2.5mg BID. Remains appropriate for memory care setting, anticipate gradual decline with disease process. Assess monthly the need for increased services/supports. . 05/05/2024
--- OUTSIDE RECORDS SUMMARY | 2024-09-10 16:35 | XMS_ITS | CCD ---
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 Name Role Phone Orin RADHAAida Primary Care Provider Unavaila ble Orin RADHAAida Chronic Care Management Unavai lable Summary Purpose DataExchange Insurance Providers Payer name Policy type / Coverage type Covered republican ID Effective Begin Date Effective End Date [employer] Commercial Insurance [id number] Unknown Family history Runs in the family Diagnosis Age At Onset No Known Diseases N/A Social History Social History Element Codes Description Effec tive Dates Marital status Unknown 01/28/2024 Living arrangements Unknown Memory Care 01/28/[address]: 042389333 Never smoker 01/[address]: 563417412 No Alcohol Consum ption 01/28/2024 Sexually Active? [...] Start Date Stop Date Status Fill Instructions memantine 5 mg tablet RxNorm: 833047 TAKE ONE-HALF TABLET (2.5MG) BY MOUTH TWICE DAILY 06/23/20 24 049 Active REFILL REQUEST FOR CYCLE THAT BEGINS 07/17, THANK YOU risperidone 0.5 mg tablet RxNorm: 948027 Take 1 Tablet(s) Oral QAM every morning 03/14/20 24 024 Inactive risperidone 1 mg tablet RxNorm: 004952 Take 1 Tablet(s) Oral HS at bed time 02/22/20 24 024 Inactive acetaminophen 500 mg tablet RxNorm: 271198 Take 2 Tablet(s) Oral TID as needed 02/22/20 24 No Stop Date Active acetaminophen 500 mg tablet RxNorm: 941648 Take 2 Tablet(s) Oral TID as needed 02/22/20 24 024 Inactive sertraline 100 mg tablet RxNorm: 786423 Take 1 Tablet(s) Oral QD Take w/ 50mg tablet 01/27/20 24 025 Active sertraline 50 mg tablet RxNorm: 203171 Take 1 Tablet(s) Oral QD Take w/ 100mg tablet 01/27/20 24 025 Active acetaminophen 500 mg tablet RxNorm: 742870 Take 2 Tablet(s) Oral TID as needed 01/27/20 24 024 Inactive amlodipine 5 mg tablet RxNorm: 112791 Take 1 Tablet(s) Oral QAM every morning 01/09/20 24 048 Active REFILL REQUEST FOR CYCLE THAT BEGINS 01/30, THANK YOU! levothyroxine 50 mcg tablet RxNorm: 945322 Take 1 Tablet(s) Oral QD BEFORE BREAKFAST 01/09/20 24 048 Active REFILL REQUEST FOR CYCLE THAT BEGINS 01/30, THANK YOU! cholecalciferol (vitamin D3) 50 mcg (2,000 unit) tablet RxNorm: 815390 Take 1 Tablet(s) Oral QAM every morning 01/09/20 24 048 Active REFILL REQUEST FOR CYCLE THAT BEGINS 01/30, THANK YOU! risperidone 0.5 mg tablet RxNorm: 150283 Take 1 Tablet(s) Oral BID 01/09/20 24 024 Inactive REFILL REQUEST FOR CYCLE THAT BEGINS 01/30, THANK YOU! sertraline 50 mg tablet RxNorm: 532694 TAKE 1 TABLET BY MOUTH ONCE DAILY. TAKE ALONG WITH 100 MG TABLET DAILY FOR A TOTAL DOSE OF 150 MG 01/09/20 24 024 Inactive REFILL REQUEST FOR CYCLE THAT BEGINS 01/30, THANK YOU! risperidone 0.5 mg tablet RxNorm: 610134 Take 1 Tablet(s) Oral BID 01/07/20 24 024 Inactive levofloxacin 500 mg tablet RxNorm: 490615 Take 1 Tablet(s) Oral QD 12/31/19 24 024 Inactive acetaminophen 500 mg tablet RxNorm: 978821 Take 2 Tablet(s) Oral TID 12/31/19 24 024 Inactive levofloxacin 500 mg tablet RxNorm: 116800 Take 1 Tablet(s) Oral QD 12/31/19 24 024 Inactive divalproex ER 250 mg tablet,extended release 24 hr RxNorm: 6884575 TAKE 1 TABLET BY MOUTH AT BEDTIME HAZARDOUS DRUG-DOUBLE GLOVE 10/21/19 24 048 Active CYCLE FILL REFILL REQUEST FOR CYCLE FILL THAT STARTS 11/08/2023. risperidone 1 mg tablet RxNorm: 335801 Take 1 Tablet(s) Oral BID 10/21/19 24 024 Inactive CYCLE FILL REFILL REQUEST FOR CYCLE FILL THAT STARTS 11/08/2023. Senexon-S 8.6 mg-50 mg tablet RxNorm: 9124331 Take 1 Tablet(s) Oral BID as needed 09/13/19 24 025 Inactive acetaminophen 500 mg tablet RxNorm: 855047 Take 2 Tablet(s) Oral BID as needed 09/13/19 24 024 Inactive Tylenol Extra Strength 500 mg tablet RxNorm: 087574 Take 2 Tablet(s) Oral BID as needed 09/13/19 24 024 Inactive trazodone 50 mg tablet RxNorm: 978795 Take 1 Tablet(s) Oral QHS every night at bedtime 09/13/19 24 Inactive quetiapine 100 mg tablet RxNorm: 445734 Take 1.5 Tablet(s) Oral HS at bed time 09/13/19 24 024 Inactive sertraline 100 mg tablet RxNorm: 666024 Take 1.5 Tablet(s) Oral QD 09/13/19 24 024 Inactive Pain Reliever Plus 250 mg-250 mg-65 mg tablet RxNorm: 401075 Take 2 Tablet(s) Oral QD as needed 09/13/19 24 Inactive sertraline 100 mg tablet RxNorm: 304238 Take 1 Tablet(s) Oral QD 07/29/19 Inactive Please authorize cycle refill. Thanks. acetaminophen 500 mg tablet RxNorm: 008598 Take 2 Tablet(s) Oral BID as needed 07/20/19 24 024 Inactive acetaminophen 500 mg tablet RxNorm: 821713 Take 2 Tablet(s) Oral BID as needed 07/20/19 24 Inactive sertraline 100 mg tablet RxNorm: 838597 Take 1 Tablet(s) Oral QD 07/13/19 24 024 Inactive donepezil 5 mg tablet RxNorm: 814729 TAKE ONE-HALF TABLET (2.5MG) BY MOUTH ONCE DAILY 07/05/20 023 Inactive Cycle refill request. Cycle restarts (07/19/23). risperidone 1 mg tablet RxNorm: 451069 Take 1 Tablet(s) Oral HS at bed time 06/25/20 024 Inactive trazodone 50 mg tablet RxNorm: 443585 Take 1 Tablet(s) Oral QHS every night at bedtime as needed 06/25/20 23 024 Inactive quetiapine 25 mg tablet RxNorm: 609054 Take 1 Tablet(s) Oral Q4H every four hours as needed 06/25/20 23 024 Inactive Senna-S 8.6 mg-50 mg tablet RxNorm: 159131 Take 1 Tablet(s) Oral BID as needed 06/25/20 23 023 Inactive trazodone 50 mg tablet RxNorm: 613202 Take 1 Tablet(s) Oral QHS every night at bedtime as needed 06/25/20 23 023 Inactive Senna-S 8.6 mg-50 mg tablet RxNorm: 194624 Take 1 Tablet(s) Oral BID as needed 06/25/20 024 Inactive acetaminophen 500 mg tablet RxNorm: 350677 Take 2 Tablet(s) Oral BID as needed 06/18/20 024 Inactive acetaminophen 500 mg tablet RxNorm: 266884 Take 2 Tablet(s) Oral BID as needed 06/18/20 023 Inactive Excedrin Extra Strength 250 mg-250 mg-65 mg tablet RxNorm: 586222 Take 2 Tablet(s) Oral QD as needed 06/18/20 023 Inactive Excedrin Extra Strength 250 mg-250 mg-65 mg tablet RxNorm: 065491 Take 2 Tablet(s) Oral QD as needed 06/18/20 024 Inactive risperidone 1 mg tablet RxNorm: 906054 Take 1 Tablet(s) Oral BID 06/04/20 023 Inactive quetiapine 25 mg tablet RxNorm: 486650 Take 1 Tablet(s) Oral BID as needed 06/04/20 023 Inactive trazodone 50 mg tablet RxNorm: 033485 Take 1 Tablet(s) Oral QHS every night at bedtime 06/04/20 023 Inactive donepezil 10 mg tablet RxNorm: 093483 Take 1 Tablet(s) Oral QD 06/04/20 024 Inactive risperidone 1 mg tablet RxNorm: 053199 Take 1 Tablet(s) Oral BID as needed 06/04/20 023 Inactive Senexon-S 8.6 mg-50 mg tablet RxNorm: 0067406 Take 1 Tablet(s) Oral BID 06/03/20 023 Inactive Please authorize quantity 90 day supply with PRN refills for assisted living patient. Their cycle restarts 06/14/23. Thank you! memantine 5 mg tablet RxNorm: 872065 TAKE ONE-HALF TABLET (2.5MG) BY MOUTH TWICE DAILY 06/03/20 023 Inactive Please authorize quantity 90 day supply with PRN refills for assisted living patient. Their cycle restarts 06/14/23. Thank you! divalproex 125 mg capsule,delayed release sprinkle RxNorm: 0968479 TAKE 4 CAPSULES (500MG) BY MOUTH AT BEDTIME 06/03/20 024 Inactive Please authorize quantity 90 day supply with PRN refills for assisted living patient. Their cycle restarts 06/14/23. Thank you! sertraline 50 mg tablet RxNorm: 754953 Take 1 Tablet(s) Oral QD 06/03/20 024 Inactive Please authorize quantity 90 day supply with PRN refills for assisted living patient. Their cycle restarts 06/14/23. Thank you! naproxen 500 mg tablet RxNorm: 494253 Take 1 Tablet(s) Oral BID 01/23/20 23 023 Inactive naproxen 500 mg tablet RxNorm: 436659 Take 1 Tablet(s) Oral BID 01/23/20 23 023 Inactive naproxen 500 mg tablet RxNorm: 958303 Take 1 Tablet(s) Oral BID 01/23/20 23 023 Inactive mirtazapine 15 mg tablet RxNorm: 381555 Take 1 Tablet(s) Oral HS at bed time 01/01/20 23 023 Inactive CYCLE FILL REQUEST FOR CYCLE THAT STARTS 01/04/2023 escitalopram 10 mg tablet RxNorm: 879748 Take 1 Tablet(s) Oral QAM every morning 12/14/19 23 023 Inactive Cycle refill request. Cycle restarts (01/04/23). cholecalciferol (vitamin D3) 50 mcg (2,000 unit) tablet RxNorm: 673660 Take 1 Tablet(s) Oral QAM every morning 12/14/19 23 023 Inactive Cycle refill request. Cycle restarts (01/04/23). melatonin 10 mg sublingual tablet RxNorm: 6110832 TAKE 1 TABLET BY MOUTH AT BEDTIME NOTE DOSAGE/STRENGTH* 12/14/19 23 023 Inactive Cycle refill request. Cycle restarts (01/04/23). rivastigmine 1.5 mg capsule RxNorm: 838601 Take 1 Capsule(s) Oral BID 12/14/19 23 023 Inactive Cycle refill request. Cycle restarts (01/04/23). quetiapine 100 mg tablet RxNorm: 541721 Take 1 Tablet(s) Oral HS at bed time 12/14/19 23 023 Inactive Cycle refill request. Cycle restarts (01/04/23). levothyroxine 50 mcg tablet RxNorm: 726869 TAKE 1 TABLET BY MOUTH ONCE DAILY BEFORE BREAKFAST 12/14/19 23 023 Inactive Cycle refill request. Cycle restarts (01/04/23). amlodipine 5 mg tablet RxNorm: 831180 Take 1 Tablet(s) Oral QAM every morning 12/14/19 23 023 Inactive Cycle refill request. Cycle restarts (01/04/23). buspirone 15 mg tablet RxNorm: 660881 Take 1 Tablet(s) Oral BID 12/14/19 23 023 Inactive Cycle refill request. Cycle restarts (01/04/23). amitriptyline 10 mg tablet RxNorm: 629047 Take 1 Tablet(s) Oral HS at bed time 12/14/19 23 023 Inactive Cycle refill request. Cycle restarts (01/04/23). levofloxacin 500 mg tablet RxNorm: 932479 Take 1 Tablet(s) Oral QD 11/24/19 23 023 Inactive levofloxacin 500 mg tablet RxNorm: 064498 Take 1 Tablet(s) Oral QD 11/24/19 23 023 Inactive levothyroxine 50 mcg tablet RxNorm: 379634 Take 1 Tablet(s) Oral QD before Breakfast 11/18/19 23 023 Inactive amitriptyline 10 mg tablet RxNorm: 509438 Take 1 Tablet(s) Oral QHS every night at bedtime 11/18/19 23 023 Inactive acetaminophen 500 mg tablet RxNorm: 684099 2 Tablet(s) Oral TID as needed 11/18/19 023 Inactive amlodipine 5 mg tablet RxNorm: 144214 Take 1 Tablet(s) Oral QAM every morning 11/18/19 023 Inactive melatonin 5 mg tablet RxNorm: 455989 Give 1 Tablet(s) Oral QHS every night at bedtime 11/18/19 023 Inactive buspirone 15 mg tablet RxNorm: 951022 Take 1 Tablet(s) Oral BID 11/18/19 023 Inactive Seroquel 25 mg tablet RxNorm: 044001 Take 1 Tablet(s) Oral QHS every night at bedtime 11/18/19 023 Inactive cholecalciferol (vitamin D3) 50 mcg (2,000 unit) tablet RxNorm: 667927 Take 1 Tablet(s) Oral QD 11/18/19 023 Inactive rivastigmine 1.5 mg capsule RxNorm: 364116 Take 2 Capsule(s) Oral BID 11/18/19 023 Inactive mirtazapine 15 mg tablet RxNorm: 788046 Take 1 Tablet(s) Oral QHS every night at bedtime 11/18/19 023 Inactive aspirin-acetaminoph en-caffeine 250 mg-250 mg-65 mg tablet RxNorm: 566302 Take 2 Tablet(s) Oral QD as needed 11/18/19 023 Inactive escitalopram 10 mg tablet RxNorm: 460749 Take 1 Tablet(s) Oral QD 11/18/19 023 Inactive Medication Administered No Medication Administered data Immunizations Vaccine Codes Dose Date Status Influenza CVX: 205 1.0 04/06/2022 Covid-19 ([employer] mR NA, LNP-S, PF, 30 mcg/0.3 mL [...] Date Patient Education: Patient Medication Summary Completed 06/25/2024 Appointment: Aida Sr WPtel: [address] [place], [place] [phone] F/U 12/31/2023 Appointment: Aida Sr WPtel: [address] [place] [address] [address] [id number] [place] F/U 09/17/2023 Appointment: Aida Sr WPtel: [address] [place] [address] [address] [id number] [place] F/U 07/23/2023 Appointment: Aida Sr WPtel: [address] [place] [address] [id number] [place] F/U 06/25/2023 Appointment: Bam Frey: [address] [place] [address] [id number] [place] SDV 01/22/2023 Appointment: Aida Sr WPtel: [address] [place], [place] [phone] NPAWV 11/20/2022 Referral: General Psychiatrist Referral Patient/Family Scheduling Appointment Referral: [facility] Home Visits WPtel: [address] [id number] Referral Order Note Incomplete Instructions Comment Date Elderly female residing in [facility] living at [facility]. PMHx: dementia, cluster B personality traits, depression, hypothyroidism, HTN, anxiety, suicidal ideationsPOLST: FULL CODEFred Anatoly-spouse, Lvsz: November/Scotty-therapist: weekly calls usually on :1 visits 3 times weekly 01/28/2024
--- OUTSIDE RECORDS SUMMARY | 2024-09-10 16:36 | XMS_ITS | CCD ---
Author Organization Unknown Care Team Providers Care Criminal Justice Department Chair Name Role Phone Aida Sr CNP Primary Care Provider Unavaila ble Aida Sr CNP Chronic Care Management Unavai lable Summary Purpose DataExchange Insurance Providers Payer name Policy type / Coverage type Covered green party ID Effective Begin Date Effective End Date [employer] Commercial Insurance [id number] Unknown Family history Runs in the family Diagnosis Age At Onset No Known Diseases N/A Social History Social History Element Codes Description Effec tive Dates Marital status Unknown 01/28/2024 Living arrangements Unknown Memory Care 01/28/[address]: 606468135 Never smoker 01/[address]: 151422447 No Alcohol Consum ption 01/28/2024 Sexually Active? [...] Fill Instructions risperidone 0.5 mg tablet RxNorm: 181044 Take 1 Tablet(s) Oral QAM every morning 03/14/20 24 024 Inactive risperidone 1 mg tablet RxNorm: 536713 Take 1 Tablet(s) Oral HS at bed time 02/22/20 024 Inactive acetaminophen 500 mg tablet RxNorm: 844896 Take 2 Tablet(s) Oral TID as needed 02/22/20 No Stop Date Active acetaminophen 500 mg tablet RxNorm: 390398 Take 2 Tablet(s) Oral TID as needed 02/22/20 24 024 Inactive sertraline 100 mg tablet RxNorm: 781397 Take 1 Tablet(s) Oral QD Take w/ 50mg tablet 01/27/20 24 025 Active sertraline 50 mg tablet RxNorm: 278599 Take 1 Tablet(s) Oral QD Take w/ 100mg tablet 01/27/20 24 025 Active acetaminophen 500 mg tablet RxNorm: 061755 Take 2 Tablet(s) Oral TID as needed 01/27/20 24 024 Inactive amlodipine 5 mg tablet RxNorm: 687083 Take 1 Tablet(s) Oral QAM every morning 01/09/20 24 048 Active REFILL REQUEST FOR CYCLE THAT BEGINS 01/30, THANK YOU! levothyroxine 50 mcg tablet RxNorm: 835484 Take 1 Tablet(s) Oral QD BEFORE BREAKFAST 01/09/20 24 048 Active REFILL REQUEST FOR CYCLE THAT BEGINS 01/30, THANK YOU! cholecalciferol (vitamin D3) 50 mcg (2,000 unit) tablet RxNorm: 820786 Take 1 Tablet(s) Oral QAM every morning 01/09/20 24 048 Active REFILL REQUEST FOR CYCLE THAT BEGINS 01/30, THANK YOU! risperidone 0.5 mg tablet RxNorm: 073203 Take 1 Tablet(s) Oral BID 01/09/20 24 024 Inactive REFILL REQUEST FOR CYCLE THAT BEGINS 01/30, THANK YOU! sertraline 50 mg tablet RxNorm: 391521 TAKE 1 TABLET BY MOUTH ONCE DAILY. TAKE ALONG WITH 100 MG TABLET DAILY FOR A TOTAL DOSE OF 150 MG 01/09/20 24 024 Inactive REFILL REQUEST FOR CYCLE THAT BEGINS 01/30, THANK YOU! risperidone 0.5 mg tablet RxNorm: 735899 Take 1 Tablet(s) Oral BID 01/07/20 24 024 Inactive levofloxacin 500 mg tablet RxNorm: 619483 Take 1 Tablet(s) Oral QD 12/31/19 24 024 Inactive acetaminophen 500 mg tablet RxNorm: 717761 Take 2 Tablet(s) Oral TID 12/31/19 24 024 Inactive levofloxacin 500 mg tablet RxNorm: 059887 Take 1 Tablet(s) Oral QD 12/31/19 24 024 Inactive divalproex ER 250 mg tablet,extended release 24 hr RxNorm: 2410611 TAKE 1 TABLET BY MOUTH AT BEDTIME HAZARDOUS DRUG-DOUBLE GLOVE 10/21/19 24 048 Active CYCLE FILL REFILL REQUEST FOR CYCLE FILL THAT STARTS 11/08/2023. risperidone 1 mg tablet RxNorm: 492361 Take 1 Tablet(s) Oral BID 10/21/19 24 024 Inactive CYCLE FILL REFILL REQUEST FOR CYCLE FILL THAT STARTS 11/08/2023. Senexon-S 8.6 mg-50 mg tablet RxNorm: 9826524 Take 1 Tablet(s) Oral BID as needed 09/13/19 24 025 Inactive acetaminophen 500 mg tablet RxNorm: 511382 Take 2 Tablet(s) Oral BID as needed 09/13/19 24 024 Inactive Tylenol Extra Strength 500 mg tablet RxNorm: 094684 Take 2 Tablet(s) Oral BID as needed 09/13/19 24 024 Inactive trazodone 50 mg tablet RxNorm: 911989 Take 1 Tablet(s) Oral QHS every night at bedtime 09/13/19 24 024 Inactive quetiapine 100 mg tablet RxNorm: 203977 Take 1.5 Tablet(s) Oral HS at bed time 09/13/19 24 024 Inactive sertraline 100 mg tablet RxNorm: 394560 Take 1.5 Tablet(s) Oral QD 09/13/19 24 024 Inactive Pain Reliever Plus 250 mg-250 mg-65 mg tablet RxNorm: 558977 Take 2 Tablet(s) Oral QD as needed 09/13/19 24 024 Inactive sertraline 100 mg tablet RxNorm: 543127 Take 1 Tablet(s) Oral QD 07/29/19 024 Inactive Please authorize cycle refill. Thanks. acetaminophen 500 mg tablet RxNorm: 038147 Take 2 Tablet(s) Oral BID as needed 07/20/19 24 Inactive acetaminophen 500 mg tablet RxNorm: 805781 Take 2 Tablet(s) Oral BID as needed 07/20/19 24 024 Inactive sertraline 100 mg tablet RxNorm: 517710 Take 1 Tablet(s) Oral QD 07/13/19 24 024 Inactive donepezil 5 mg tablet RxNorm: 186964 TAKE ONE-HALF TABLET (2.5MG) BY MOUTH ONCE DAILY 07/05/20 023 Inactive Cycle refill request. Cycle restarts (07/19/23). risperidone 1 mg tablet RxNorm: 668615 Take 1 Tablet(s) Oral HS at bed time 06/25/20 024 Inactive trazodone 50 mg tablet RxNorm: 508438 Take 1 Tablet(s) Oral QHS every night at bedtime as needed 06/25/20 024 Inactive quetiapine 25 mg tablet RxNorm: 449278 Take 1 Tablet(s) Oral Q4H every four hours as needed 06/25/20 23 024 Inactive Senna-S 8.6 mg-50 mg tablet RxNorm: 201970 Take 1 Tablet(s) Oral BID as needed 06/25/20 23 023 Inactive trazodone 50 mg tablet RxNorm: 316969 Take 1 Tablet(s) Oral QHS every night at bedtime as needed 06/25/20 23 023 Inactive Senna-S 8.6 mg-50 mg tablet RxNorm: 647101 Take 1 Tablet(s) Oral BID as needed 06/25/20 23 024 Inactive acetaminophen 500 mg tablet RxNorm: 683492 Take 2 Tablet(s) Oral BID as needed 06/18/20 23 024 Inactive acetaminophen 500 mg tablet RxNorm: 337709 Take 2 Tablet(s) Oral BID as needed 06/18/20 23 023 Inactive Excedrin Extra Strength 250 mg-250 mg-65 mg tablet RxNorm: 284480 Take 2 Tablet(s) Oral QD as needed 06/18/20 023 Inactive Excedrin Extra Strength 250 mg-250 mg-65 mg tablet RxNorm: 990765 Take 2 Tablet(s) Oral QD as needed 06/18/20 024 Inactive risperidone 1 mg tablet RxNorm: 466609 Take 1 Tablet(s) Oral BID 06/04/20 023 Inactive quetiapine 25 mg tablet RxNorm: 526904 Take 1 Tablet(s) Oral BID as needed 06/04/20 023 Inactive trazodone 50 mg tablet RxNorm: 072822 Take 1 Tablet(s) Oral QHS every night at bedtime 06/04/20 023 Inactive donepezil 10 mg tablet RxNorm: 673713 Take 1 Tablet(s) Oral QD 06/04/20 024 Inactive risperidone 1 mg tablet RxNorm: 624933 Take 1 Tablet(s) Oral BID as needed 06/04/20 023 Inactive Senexon-S 8.6 mg-50 mg tablet RxNorm: 3601280 Take 1 Tablet(s) Oral BID 06/03/20 023 Inactive Please authorize quantity 90 day supply with PRN refills for assisted living patient. Their cycle restarts 06/14/23. Thank you! memantine 5 mg tablet RxNorm: 541010 TAKE ONE-HALF TABLET (2.5MG) BY MOUTH TWICE DAILY 06/03/20 023 Inactive Please authorize quantity 90 day supply with PRN refills for assisted living patient. Their cycle restarts 06/14/23. Thank you! divalproex 125 mg capsule,delayed release sprinkle RxNorm: 2697441 TAKE 4 CAPSULES (500MG) BY MOUTH AT BEDTIME 06/03/20 024 Inactive Please authorize quantity 90 day supply with PRN refills for assisted living patient. Their cycle restarts 06/14/23. Thank you! sertraline 50 mg tablet RxNorm: 147995 Take 1 Tablet(s) Oral QD 06/03/20 024 Inactive Please authorize quantity 90 day supply with PRN refills for assisted living patient. Their cycle restarts 06/14/23. Thank you! naproxen 500 mg tablet RxNorm: 743306 Take 1 Tablet(s) Oral BID 01/23/20 23 023 Inactive naproxen 500 mg tablet RxNorm: 268318 Take 1 Tablet(s) Oral BID 01/23/20 023 Inactive naproxen 500 mg tablet RxNorm: 917713 Take 1 Tablet(s) Oral BID 01/23/20 023 Inactive mirtazapine 15 mg tablet RxNorm: 892407 Take 1 Tablet(s) Oral HS at bed time 01/01/20 023 Inactive CYCLE FILL REQUEST FOR CYCLE THAT STARTS 01/04/2023 escitalopram 10 mg tablet RxNorm: 416224 Take 1 Tablet(s) Oral QAM every morning 12/14/19 023 Inactive Cycle refill request. Cycle restarts (01/04/23). cholecalciferol (vitamin D3) 50 mcg (2,000 unit) tablet RxNorm: 470328 Take 1 Tablet(s) Oral QAM every morning 12/14/19 23 023 Inactive Cycle refill request. Cycle restarts (01/04/23). melatonin 10 mg sublingual tablet RxNorm: 1672445 TAKE 1 TABLET BY MOUTH AT BEDTIME NOTE DOSAGE/STRENGTH* 12/14/19 023 Inactive Cycle refill request. Cycle restarts (01/04/23). rivastigmine 1.5 mg capsule RxNorm: 110892 Take 1 Capsule(s) Oral BID 12/14/19 23 023 Inactive Cycle refill request. Cycle restarts (01/04/23). quetiapine 100 mg tablet RxNorm: 044095 Take 1 Tablet(s) Oral HS at bed time 12/14/19 23 023 Inactive Cycle refill request. Cycle restarts (01/04/23). levothyroxine 50 mcg tablet RxNorm: 124747 TAKE 1 TABLET BY MOUTH ONCE DAILY BEFORE BREAKFAST 12/14/19 23 023 Inactive Cycle refill request. Cycle restarts (01/04/23). amlodipine 5 mg tablet RxNorm: 622766 Take 1 Tablet(s) Oral QAM every morning 12/14/19 23 023 Inactive Cycle refill request. Cycle restarts (01/04/23). buspirone 15 mg tablet RxNorm: 546577 Take 1 Tablet(s) Oral BID 12/14/19 23 023 Inactive Cycle refill request. Cycle restarts (01/04/23). amitriptyline 10 mg tablet RxNorm: 528815 Take 1 Tablet(s) Oral HS at bed time 12/14/19 23 023 Inactive Cycle refill request. Cycle restarts (01/04/23). levofloxacin 500 mg tablet RxNorm: 170754 Take 1 Tablet(s) Oral QD 11/24/19 23 023 Inactive levofloxacin 500 mg tablet RxNorm: 025865 Take 1 Tablet(s) Oral QD 11/24/19 23 023 Inactive levothyroxine 50 mcg tablet RxNorm: 764359 Take 1 Tablet(s) Oral QD before Breakfast 11/18/19 23 023 Inactive amitriptyline 10 mg tablet RxNorm: 307579 Take 1 Tablet(s) Oral QHS every night at bedtime 11/18/19 23 023 Inactive acetaminophen 500 mg tablet RxNorm: 527735 2 Tablet(s) Oral TID as needed 11/18/19 23 023 Inactive amlodipine 5 mg tablet RxNorm: 011599 Take 1 Tablet(s) Oral QAM every morning 11/18/19 23 023 Inactive melatonin 5 mg tablet RxNorm: 553827 Give 1 Tablet(s) Oral QHS every night at bedtime 11/18/19 23 023 Inactive buspirone 15 mg tablet RxNorm: 291475 Take 1 Tablet(s) Oral BID 11/18/19 23 023 Inactive Seroquel 25 mg tablet RxNorm: 002558 Take 1 Tablet(s) Oral QHS every night at bedtime 11/18/19 023 Inactive cholecalciferol (vitamin D3) 50 mcg (2,000 unit) tablet RxNorm: 209211 Take 1 Tablet(s) Oral QD 11/18/19 023 Inactive rivastigmine 1.5 mg capsule RxNorm: 750918 Take 2 Capsule(s) Oral BID 11/18/19 023 Inactive mirtazapine 15 mg tablet RxNorm: 595541 Take 1 Tablet(s) Oral QHS every night at bedtime 11/18/19 023 Inactive aspirin-acetaminoph en-caffeine 250 mg-250 mg-65 mg tablet RxNorm: 363205 Take 2 Tablet(s) Oral QD as needed 11/18/19 023 Inactive escitalopram 10 mg tablet RxNorm: 382623 Take 1 Tablet(s) Oral QD 11/18/19 023 Inactive Medication Administered No Medication Administered data Immunizations Vaccine Codes Dose Date Status Influenza CVX: 205 1.0 04/06/2022 Covid-19 ([employer] mR NA, LNP-S, PF, 30 mcg/0.3 mL [...] WPtel: [address], [address] [id number] Referral Order Note Incomplete Instructions Comment Date Elderly female residing [facility]. PMHx: dementia, cluster B personality traits, depression, hypothyroidism, HTN, anxiety, suicidal ideationsPOLST: FULL CODEFred Anatoly-spouse, Aqfc: November/ham-therapist: weekly calls usually on :1 visits 3 times weekly 01/28/2024
--- OUTSIDE RECORDS SUMMARY | 2024-09-10 16:36 | XMS_ITS | CCD ---
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 risperidone 1 mg tablet RxNorm: 806618 Take 1 Tablet(s) Oral BID 10/21/19 24 024 Inactive CYCLE FILL REFILL REQUEST FOR CYCLE FILL THAT STARTS 11/08/2023. Tylenol Extra Strength 500 mg tablet RxNorm: 315549 Take 2 Tablet(s) Oral BID as needed 09/13/19 24 024 Inactive trazodone 50 mg tablet RxNorm: 453983 Take 1 Tablet(s) Oral QHS every night at bedtime 09/13/19 24 024 Inactive Senexon-S 8.6 mg-50 mg tablet RxNorm: 9145854 Take 1 Tablet(s) Oral BID as needed 09/13/19 24 025 Inactive sertraline 100 mg tablet RxNorm: 845810 Take 1.5 Tablet(s) Oral QD 09/13/19 24 024 Inactive Pain Reliever Plus 250 mg-250 mg-65 mg tablet RxNorm: 398121 Take 2 Tablet(s) Oral QD as needed 09/13/19 24 Inactive acetaminophen 500 mg tablet RxNorm: 653153 Take 2 Tablet(s) Oral BID as needed 09/13/19 24 024 Inactive quetiapine 100 mg tablet RxNorm: 050310 Take 1.5 Tablet(s) Oral HS at bed time 09/13/19 24 024 Inactive sertraline 100 mg tablet RxNorm: 392454 Take 1 Tablet(s) Oral QD 07/29/19 Inactive Please authorize cycle refill. Thanks. acetaminophen 500 mg tablet RxNorm: 859799 Take 2 Tablet(s) Oral BID as needed 07/20/19 24 Inactive acetaminophen 500 mg tablet RxNorm: 636239 Take 2 Tablet(s) Oral BID as needed 07/20/19 Inactive sertraline 100 mg tablet RxNorm: 881197 Take 1 Tablet(s) Oral QD 07/13/19 024 Inactive donepezil 5 mg tablet RxNorm: 754630 TAKE ONE-HALF TABLET (2.5MG) BY MOUTH ONCE DAILY 07/05/20 023 Inactive Cycle refill request. Cycle restarts (07/19/23). risperidone 1 mg tablet RxNorm: 587654 Take 1 Tablet(s) Oral HS at bed time 06/25/20 024 Inactive trazodone 50 mg tablet RxNorm: 942633 Take 1 Tablet(s) Oral QHS every night at bedtime as needed 06/25/20 23 024 Inactive quetiapine 25 mg tablet RxNorm: 351955 Take 1 Tablet(s) Oral Q4H every four hours as needed 06/25/20 23 024 Inactive Senna-S 8.6 mg-50 mg tablet RxNorm: 434564 Take 1 Tablet(s) Oral BID as needed 06/25/20 23 023 Inactive trazodone 50 mg tablet RxNorm: 580516 Take 1 Tablet(s) Oral QHS every night at bedtime as needed 06/25/20 023 Inactive Senna-S 8.6 mg-50 mg tablet RxNorm: 198162 Take 1 Tablet(s) Oral BID as needed 06/25/20 024 Inactive acetaminophen 500 mg tablet RxNorm: 801036 Take 2 Tablet(s) Oral BID as needed 06/18/20 024 Inactive acetaminophen 500 mg tablet RxNorm: 063763 Take 2 Tablet(s) Oral BID as needed 06/18/20 023 Inactive Excedrin Extra Strength 250 mg-250 mg-65 mg tablet RxNorm: 646902 Take 2 Tablet(s) Oral QD as needed 06/18/20 Inactive Excedrin Extra Strength 250 mg-250 mg-65 mg tablet RxNorm: 095609 Take 2 Tablet(s) Oral QD as needed 06/18/20 024 Inactive risperidone 1 mg tablet RxNorm: 892749 Take 1 Tablet(s) Oral BID 06/04/20 023 Inactive quetiapine 25 mg tablet RxNorm: 388743 Take 1 Tablet(s) Oral BID as needed 06/04/20 023 Inactive trazodone 50 mg tablet RxNorm: 962820 Take 1 Tablet(s) Oral QHS every night at bedtime 06/04/20 023 Inactive donepezil 10 mg tablet RxNorm: 032643 Take 1 Tablet(s) Oral QD 06/04/20 024 Inactive risperidone 1 mg tablet RxNorm: 957460 Take 1 Tablet(s) Oral BID as needed 06/04/20 023 Inactive Senexon-S 8.6 mg-50 mg tablet RxNorm: 3135500 Take 1 Tablet(s) Oral BID 06/03/20 023 Inactive Please authorize quantity 90 day supply with PRN refills for assisted living patient. Their cycle restarts 06/14/23. Thank you! memantine 5 mg tablet RxNorm: 864803 TAKE ONE-HALF TABLET (2.5MG) BY MOUTH TWICE DAILY 06/03/20 023 Inactive Please authorize quantity 90 day supply with PRN refills for assisted living patient. Their cycle restarts 06/14/23. Thank you! divalproex 125 mg capsule,delayed release sprinkle RxNorm: 5291585 TAKE 4 CAPSULES (500MG) BY MOUTH AT BEDTIME 06/03/20 024 Inactive Please authorize quantity 90 day supply with PRN refills for assisted living patient. Their cycle restarts 06/14/23. Thank you! sertraline 50 mg tablet RxNorm: 056107 Take 1 Tablet(s) Oral QD 06/03/20 024 Inactive Please authorize quantity 90 day supply with PRN refills for assisted living patient. Their cycle restarts 06/14/23. Thank you! naproxen 500 mg tablet RxNorm: 102440 Take 1 Tablet(s) Oral BID 01/23/20 23 023 Inactive naproxen 500 mg tablet RxNorm: 817323 Take 1 Tablet(s) Oral BID 01/23/20 23 023 Inactive naproxen 500 mg tablet RxNorm: 496394 Take 1 Tablet(s) Oral BID 01/23/20 23 023 Inactive mirtazapine 15 mg tablet RxNorm: 584007 Take 1 Tablet(s) Oral HS at bed time 01/01/20 023 Inactive CYCLE FILL REQUEST FOR CYCLE THAT STARTS 01/04/2023 escitalopram 10 mg tablet RxNorm: 944042 Take 1 Tablet(s) Oral QAM every morning 12/14/19 23 023 Inactive Cycle refill request. Cycle restarts (01/04/23). cholecalciferol (vitamin D3) 50 mcg (2,000 unit) tablet RxNorm: 066677 Take 1 Tablet(s) Oral QAM every morning 12/14/19 23 023 Inactive Cycle refill request. Cycle restarts (01/04/23). melatonin 10 mg sublingual tablet RxNorm: 0659031 TAKE 1 TABLET BY MOUTH AT BEDTIME NOTE DOSAGE/STRENGTH* 12/14/19 23 023 Inactive Cycle refill request. Cycle restarts (01/04/23). rivastigmine 1.5 mg capsule RxNorm: 354541 Take 1 Capsule(s) Oral BID 12/14/19 23 023 Inactive Cycle refill request. Cycle restarts (01/04/23). quetiapine 100 mg tablet RxNorm: 409086 Take 1 Tablet(s) Oral HS at bed time 12/14/19 23 023 Inactive Cycle refill request. Cycle restarts (01/04/23). levothyroxine 50 mcg tablet RxNorm: 470529 TAKE 1 TABLET BY MOUTH ONCE DAILY BEFORE BREAKFAST 12/14/19 23 023 Inactive Cycle refill request. Cycle restarts (01/04/23). amlodipine 5 mg tablet RxNorm: 725020 Take 1 Tablet(s) Oral QAM every morning 12/14/19 23 023 Inactive Cycle refill request. Cycle restarts (01/04/23). buspirone 15 mg tablet RxNorm: 221228 Take 1 Tablet(s) Oral BID 12/14/19 23 023 Inactive Cycle refill request. Cycle restarts (01/04/23). amitriptyline 10 mg tablet RxNorm: 544018 Take 1 Tablet(s) Oral HS at bed time 12/14/19 23 023 Inactive Cycle refill request. Cycle restarts (01/04/23). levofloxacin 500 mg tablet RxNorm: 946919 Take 1 Tablet(s) Oral QD 11/24/19 23 023 Inactive levofloxacin 500 mg tablet RxNorm: 044349 Take 1 Tablet(s) Oral QD 11/24/19 23 023 Inactive levothyroxine 50 mcg tablet RxNorm: 903152 Take 1 Tablet(s) Oral QD before Breakfast 11/18/19 23 023 Inactive amitriptyline 10 mg tablet RxNorm: 162634 Take 1 Tablet(s) Oral QHS every night at bedtime 11/18/19 23 023 Inactive acetaminophen 500 mg tablet RxNorm: 458242 2 Tablet(s) Oral TID as needed 11/18/19 023 Inactive amlodipine 5 mg tablet RxNorm: 447619 Take 1 Tablet(s) Oral QAM every morning 11/18/19 023 Inactive melatonin 5 mg tablet RxNorm: 105769 Give 1 Tablet(s) Oral QHS every night at bedtime 11/18/19 023 Inactive buspirone 15 mg tablet RxNorm: 828983 Take 1 Tablet(s) Oral BID 11/18/19 023 Inactive Seroquel 25 mg tablet RxNorm: 935990 Take 1 Tablet(s) Oral QHS every night at bedtime 11/18/19 023 Inactive cholecalciferol (vitamin D3) 50 mcg (2,000 unit) tablet RxNorm: 678819 Take 1 Tablet(s) Oral QD 11/18/19 023 Inactive rivastigmine 1.5 mg capsule RxNorm: 439165 Take 2 Capsule(s) Oral BID 11/18/19 023 Inactive mirtazapine 15 mg tablet RxNorm: 113544 Take 1 Tablet(s) Oral QHS every night at bedtime 11/18/19 023 Inactive aspirin-acetaminoph en-caffeine 250 mg-250 mg-65 mg tablet RxNorm: 376458 Take 2 Tablet(s) Oral QD as needed 11/18/19 023 Inactive escitalopram 10 mg tablet RxNorm: 829968 Take 1 Tablet(s) Oral QD 11/18/19 023 Inactive Medication Administered No Medication Administered data Immunizations Vaccine Codes Dose Date Status Influenza CVX: 205 1.0 04/06/2022 Covid-19 ([employer] mR NA, LNP-S, PF, 30 mcg/0.3 [...] Date Patient Education: Patient Medication Summary Completed 11/06/2023 Appointment: Aida Sr WPtel: [address] [place], [place] [phone] [place] F/U 09/17/2023 Appointment: Aida Sr WPtel: [address] [place], [place] [phone] [place] F/U 07/23/2023 Appointment: Aida Sr WPtel: [address] [place], [place] [phone] [place] F/U 06/25/2023 Appointment: Bam Frey: [address] [place], [place] [phone] [place] SDV 01/22/2023 Appointment: Aida Sr WPtel: [address] [place] [address] [address] [id number] NPAWV 11/20/2022 Referral: General Psychiatrist Referral Patient/Family Scheduling Appointment Referral: VIA Orthopedics- [facility] n Home Visits WPtel: [address], [address] [id number] Referral Order Note Incomplete Instructions Comment Date Elderly female residing [facility]. PMHx: dementia, cluster B personality traits, depression, hypothyroidism, HTN, anxiety, suicidal ideationsPOLST: FULL CODEFred Anatoly-spouse, Fsff: -therapist: weekly calls usually on :1 visits 3 times weekly 01/28/2024
--- OUTSIDE RECORDS SUMMARY | 2024-09-10 16:36 | XMS_ITS | CCD ---
Author Organization Unknown Care Team Providers Care Casting And Locker Room Servicer Name Role Phone Orin GARCIA, Aida Primary Care Provider Unavaila ble Aida Sr CNP Chronic Care Management Unavai lable Summary Purpose DataExchange Insurance Providers Payer name Policy type / Coverage type Covered libertarian ID Effective Begin Date Effective End Date [employer] Commercial Insurance [id number] Unknown Family History Family History data not found Allergies, Adverse Reactions, Alerts Substance Reaction Codes Entered Date Inactivated Date Status Sulfa Unknown 11/14/2022 No Inactive Date Ac tive Problems Condition Codes Effective Dates Condition St atus Dementia ICD-10: F03.90 ICD-9: 294.20 12/31/2023 Active Gait instability ICD-10: R26.81 ICD-9: 781.2 12/31/2023 Active UTI (urinary tract infection) ICD-10: N3 9.0 ICD-9: 599.0 12/31/2023 Active Insomnia ICD-10: G47.00 ICD-9: 780.52 12/10/2023 Active Spider bite wound ICD-10: T63.301A ICD-9: 989.5 12/10/2023 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 risperidone 0.5 mg tablet RxNorm: 445542 Take 1 Tablet(s) Oral BID 01/09/20 24 024 Inactive REFILL REQUEST FOR CYCLE THAT BEGINS 01/30, THANK YOU! sertraline 50 mg tablet RxNorm: 208068 TAKE 1 TABLET BY MOUTH ONCE DAILY. TAKE ALONG WITH 100 MG TABLET DAILY FOR A TOTAL DOSE OF 150 MG 01/09/20 24 024 Inactive REFILL REQUEST FOR CYCLE THAT BEGINS 01/30, THANK YOU! levothyroxine 50 mcg tablet RxNorm: 658982 Take 1 Tablet(s) Oral QD BEFORE BREAKFAST 01/09/20 24 048 Active REFILL REQUEST FOR CYCLE THAT BEGINS 01/30, THANK YOU! cholecalciferol (vitamin D3) 50 mcg (2,000 unit) tablet RxNorm: 785428 Take 1 Tablet(s) Oral QAM every morning 01/09/20 24 03/02/2 048 Active REFILL REQUEST FOR CYCLE THAT BEGINS 01/30, THANK YOU! risperidone 0.5 mg tablet RxNorm: 233151 Take 1 Tablet(s) Oral BID 01/07/20 24 024 Inactive acetaminophen 500 mg tablet RxNorm: 689229 Take 2 Tablet(s) Oral TID 12/31/19 24 024 Inactive levofloxacin 500 mg tablet RxNorm: 825030 Take 1 Tablet(s) Oral QD 12/31/19 24 024 Inactive levofloxacin 500 mg tablet RxNorm: 398310 Take 1 Tablet(s) Oral QD 12/31/19 24 024 Inactive divalproex ER 250 mg tablet,extended release 24 hr RxNorm: 3017809 TAKE 1 TABLET BY MOUTH AT BEDTIME HAZARDOUS DRUG-DOUBLE GLOVE 10/21/19 24 048 Active CYCLE FILL REFILL REQUEST FOR CYCLE FILL THAT STARTS 11/08/2023. risperidone 1 mg tablet RxNorm: 484578 Take 1 Tablet(s) Oral BID 10/21/19 24 024 Inactive CYCLE FILL REFILL REQUEST FOR CYCLE FILL THAT STARTS 11/08/2023. Senexon-S 8.6 mg-50 mg tablet RxNorm: 3533399 Take 1 Tablet(s) Oral BID as needed 09/13/19 24 025 Inactive sertraline 100 mg tablet RxNorm: 741447 Take 1.5 Tablet(s) Oral QD 09/13/19 24 024 Inactive Pain Reliever Plus 250 mg-250 mg-65 mg tablet RxNorm: 465524 Take 2 Tablet(s) Oral QD as needed 09/13/19 24 024 Inactive acetaminophen 500 mg tablet RxNorm: 371042 Take 2 Tablet(s) Oral BID as needed 09/13/19 24 024 Inactive Tylenol Extra Strength 500 mg tablet RxNorm: 561861 Take 2 Tablet(s) Oral BID as needed 09/13/19 24 024 Inactive trazodone 50 mg tablet RxNorm: 657011 Take 1 Tablet(s) Oral QHS every night at bedtime 09/13/19 24 024 Inactive quetiapine 100 mg tablet RxNorm: 566287 Take 1.5 Tablet(s) Oral HS at bed time 09/13/19 24 024 Inactive sertraline 100 mg tablet RxNorm: 419749 Take 1 Tablet(s) Oral QD 07/29/19 24 024 Inactive Please authorize cycle refill. Thanks. acetaminophen 500 mg tablet RxNorm: 889234 Take 2 Tablet(s) Oral BID as needed 07/20/19 24 024 Inactive acetaminophen 500 mg tablet RxNorm: 054176 Take 2 Tablet(s) Oral BID as needed 07/20/19 24 024 Inactive sertraline 100 mg tablet RxNorm: 762018 Take 1 Tablet(s) Oral QD 07/13/19 24 024 Inactive donepezil 5 mg tablet RxNorm: 567054 TAKE ONE-HALF TABLET (2.5MG) BY MOUTH ONCE DAILY 07/05/20 023 Inactive Cycle refill request. Cycle restarts (07/19/23). risperidone 1 mg tablet RxNorm: 545821 Take 1 Tablet(s) Oral HS at bed time 06/25/20 23 024 Inactive trazodone 50 mg tablet RxNorm: 416852 Take 1 Tablet(s) Oral QHS every night at bedtime as needed 06/25/20 23 024 Inactive quetiapine 25 mg tablet RxNorm: 637870 Take 1 Tablet(s) Oral Q4H every four hours as needed 06/25/20 23 024 Inactive Senna-S 8.6 mg-50 mg tablet RxNorm: 438587 Take 1 Tablet(s) Oral BID as needed 06/25/20 23 023 Inactive trazodone 50 mg tablet RxNorm: 737350 Take 1 Tablet(s) Oral QHS every night at bedtime as needed 06/25/20 23 023 Inactive Senna-S 8.6 mg-50 mg tablet RxNorm: 915239 Take 1 Tablet(s) Oral BID as needed 06/25/20 23 024 Inactive acetaminophen 500 mg tablet RxNorm: 690847 Take 2 Tablet(s) Oral BID as needed 06/18/20 23 024 Inactive acetaminophen 500 mg tablet RxNorm: 872843 Take 2 Tablet(s) Oral BID as needed 06/18/20 023 Inactive Excedrin Extra Strength 250 mg-250 mg-65 mg tablet RxNorm: 969330 Take 2 Tablet(s) Oral QD as needed 06/18/20 023 Inactive Excedrin Extra Strength 250 mg-250 mg-65 mg tablet RxNorm: 137923 Take 2 Tablet(s) Oral QD as needed 06/18/20 024 Inactive risperidone 1 mg tablet RxNorm: 946628 Take 1 Tablet(s) Oral BID 06/04/20 023 Inactive quetiapine 25 mg tablet RxNorm: 864778 Take 1 Tablet(s) Oral BID as needed 06/04/20 023 Inactive trazodone 50 mg tablet RxNorm: 927258 Take 1 Tablet(s) Oral QHS every night at bedtime 06/04/20 023 Inactive donepezil 10 mg tablet RxNorm: 425436 Take 1 Tablet(s) Oral QD 06/04/20 024 Inactive risperidone 1 mg tablet RxNorm: 647607 Take 1 Tablet(s) Oral BID as needed 06/04/20 023 Inactive Senexon-S 8.6 mg-50 mg tablet RxNorm: 4254009 Take 1 Tablet(s) Oral BID 06/03/20 023 Inactive Please authorize quantity 90 day supply with PRN refills for assisted living patient. Their cycle restarts 06/14/23. Thank you! memantine 5 mg tablet RxNorm: 374627 TAKE ONE-HALF TABLET (2.5MG) BY MOUTH TWICE DAILY 06/03/20 023 Inactive Please authorize quantity 90 day supply with PRN refills for assisted living patient. Their cycle restarts 06/14/23. Thank you! divalproex 125 mg capsule,delayed release sprinkle RxNorm: 9586555 TAKE 4 CAPSULES (500MG) BY MOUTH AT BEDTIME 06/03/20 024 Inactive Please authorize quantity 90 day supply with PRN refills for assisted living patient. Their cycle restarts 06/14/23. Thank you! sertraline 50 mg tablet RxNorm: 514435 Take 1 Tablet(s) Oral QD 06/03/20 23 024 Inactive Please authorize quantity 90 day supply with PRN refills for assisted living patient. Their cycle restarts 06/14/23. Thank you! naproxen 500 mg tablet RxNorm: 121185 Take 1 Tablet(s) Oral BID 01/23/20 23 023 Inactive naproxen 500 mg tablet RxNorm: 101825 Take 1 Tablet(s) Oral BID 01/23/20 23 023 Inactive naproxen 500 mg tablet RxNorm: 180064 Take 1 Tablet(s) Oral BID 01/23/20 023 Inactive mirtazapine 15 mg tablet RxNorm: 418929 Take 1 Tablet(s) Oral HS at bed time 01/01/20 023 Inactive CYCLE FILL REQUEST FOR CYCLE THAT STARTS 01/04/2023 escitalopram 10 mg tablet RxNorm: 399843 Take 1 Tablet(s) Oral QAM every morning 12/14/19 23 023 Inactive Cycle refill request. Cycle restarts (01/04/23). cholecalciferol (vitamin D3) 50 mcg (2,000 unit) tablet RxNorm: 320273 Take 1 Tablet(s) Oral QAM every morning 12/14/19 23 023 Inactive Cycle refill request. Cycle restarts (01/04/23). melatonin 10 mg sublingual tablet RxNorm: 6174078 TAKE 1 TABLET BY MOUTH AT BEDTIME NOTE DOSAGE/STRENGTH* 12/14/19 23 023 Inactive Cycle refill request. Cycle restarts (01/04/23). rivastigmine 1.5 mg capsule RxNorm: 329508 Take 1 Capsule(s) Oral BID 12/14/19 23 023 Inactive Cycle refill request. Cycle restarts (01/04/23). quetiapine 100 mg tablet RxNorm: 215387 Take 1 Tablet(s) Oral HS at bed time 12/14/19 23 023 Inactive Cycle refill request. Cycle restarts (01/04/23). levothyroxine 50 mcg tablet RxNorm: 175341 TAKE 1 TABLET BY MOUTH ONCE DAILY BEFORE BREAKFAST 12/14/19 23 023 Inactive Cycle refill request. Cycle restarts (01/04/23). amlodipine 5 mg tablet RxNorm: 867193 Take 1 Tablet(s) Oral QAM every morning 12/14/19 23 023 Inactive Cycle refill request. Cycle restarts (01/04/23). buspirone 15 mg tablet RxNorm: 656107 Take 1 Tablet(s) Oral BID 12/14/19 23 023 Inactive Cycle refill request. Cycle restarts (01/04/23). amitriptyline 10 mg tablet RxNorm: 904287 Take 1 Tablet(s) Oral HS at bed time 12/14/19 23 023 Inactive Cycle refill request. Cycle restarts (01/04/23). levofloxacin 500 mg tablet RxNorm: 336249 Take 1 Tablet(s) Oral QD 11/24/19 23 023 Inactive levofloxacin 500 mg tablet RxNorm: 343515 Take 1 Tablet(s) Oral QD 11/24/19 23 023 Inactive levothyroxine 50 mcg tablet RxNorm: 431829 Take 1 Tablet(s) Oral QD before Breakfast 11/18/19 23 023 Inactive amitriptyline 10 mg tablet RxNorm: 159069 Take 1 Tablet(s) Oral QHS every night at bedtime 11/18/19 23 023 Inactive acetaminophen 500 mg tablet RxNorm: 866411 2 Tablet(s) Oral TID as needed 11/18/19 23 023 Inactive amlodipine 5 mg tablet RxNorm: 727664 Take 1 Tablet(s) Oral QAM every morning 11/18/19 23 023 Inactive melatonin 5 mg tablet RxNorm: 843934 Give 1 Tablet(s) Oral QHS every night at bedtime 11/18/19 23 023 Inactive buspirone 15 mg tablet RxNorm: 824334 Take 1 Tablet(s) Oral BID 11/18/19 23 023 Inactive Seroquel 25 mg tablet RxNorm: 918820 Take 1 Tablet(s) Oral QHS every night at bedtime 11/18/19 023 Inactive cholecalciferol (vitamin D3) 50 mcg (2,000 unit) tablet RxNorm: 136826 Take 1 Tablet(s) Oral QD 11/18/19 023 Inactive rivastigmine 1.5 mg capsule RxNorm: 073082 Take 2 Capsule(s) Oral BID 11/18/19 023 Inactive mirtazapine 15 mg tablet RxNorm: 520891 Take 1 Tablet(s) Oral QHS every night at bedtime 11/18/19 023 Inactive aspirin-acetaminoph en-caffeine 250 mg-250 mg-65 mg tablet RxNorm: 738905 Take 2 Tablet(s) Oral QD as needed 11/18/19 023 Inactive escitalopram 10 mg tablet RxNorm: 506521 Take 1 Tablet(s) Oral QD 11/18/19 023 Inactive Medication Administered No Medication Administered data Immunizations Vaccine Codes Dose Date Status Influenza CVX: 205 1.0 04/06/2022 Covid-19 ([employer] mR NA, LNP-S, PF, 30 mcg/0.3 mL [...] WPtel: [address], [address] [id number] Referral Order Note Incomplete Instructions Comment Date Elderly female residing in [facility] assisted living at [facility]. PMHx: dementia, cluster B personality traits, depression, hypothyroidism, HTN, anxiety, suicidal ideationsPOLST: FULL CODEFred Anatoly-spouse, Vkdz: November/Scotty-therapist: weekly calls usually on :1 visits 3 times weekly 01/28/2024
--- OUTSIDE RECORDS SUMMARY | 2024-09-10 16:36 | XMS_ITS | CCD ---
Author Name Aida Sr CNP Address [address] [facility] [address] [place] [address] Phone Organization [facility] Phone Care Team Providers Care Internet Marketing Coordinator Name Role Phone Aida Sr CNP Primary Care Provider Unavaila ble Aida Sr CNP Chronic Care Management Unavai lable Summary Purpose DataExchange Insurance Providers Payer name Policy type / Coverage type Covered libertarian ID Effective Begin Date Effective End Date [employer] [id number] Unknown Family History Family History data not [...] Fill Instructions levofloxacin 500 mg tablet RxNorm: 524155 Take 1 Tablet(s) Oral QD 12/31/19 24 024 Inactive acetaminophen 500 mg tablet RxNorm: 811780 Take 2 Tablet(s) Oral TID 12/31/19 24 024 Inactive levofloxacin 500 mg tablet RxNorm: 216027 Take 1 Tablet(s) Oral QD 12/31/19 24 024 Inactive divalproex ER 250 mg tablet,extended release 24 hr RxNorm: 5556231 TAKE 1 TABLET BY MOUTH AT BEDTIME HAZARDOUS DRUG-DOUBLE GLOVE 10/21/19 24 048 Active CYCLE FILL REFILL REQUEST FOR CYCLE FILL THAT STARTS 11/08/2023. risperidone 1 mg tablet RxNorm: 724390 Take 1 Tablet(s) Oral BID 10/21/19 24 024 Inactive CYCLE FILL REFILL REQUEST FOR CYCLE FILL THAT STARTS 11/08/2023. Senexon-S 8.6 mg-50 mg tablet RxNorm: 7559717 Take 1 Tablet(s) Oral BID as needed 09/13/19 24 025 Inactive sertraline 100 mg tablet RxNorm: 888823 Take 1.5 Tablet(s) Oral QD 09/13/19 24 024 Inactive Pain Reliever Plus 250 mg-250 mg-65 mg tablet RxNorm: 403068 Take 2 Tablet(s) Oral QD as needed 09/13/19 24 024 Inactive acetaminophen 500 mg tablet RxNorm: 122393 Take 2 Tablet(s) Oral BID as needed 09/13/19 24 024 Inactive Tylenol Extra Strength 500 mg tablet RxNorm: 644315 Take 2 Tablet(s) Oral BID as needed 09/13/19 24 Inactive trazodone 50 mg tablet RxNorm: 700593 Take 1 Tablet(s) Oral QHS every night at bedtime 09/13/19 24 024 Inactive quetiapine 100 mg tablet RxNorm: 692632 Take 1.5 Tablet(s) Oral HS at bed time 09/13/19 24 024 Inactive sertraline 100 mg tablet RxNorm: 284865 Take 1 Tablet(s) Oral QD 07/29/19 24 024 Inactive Please authorize cycle refill. Thanks. acetaminophen 500 mg tablet RxNorm: 076422 Take 2 Tablet(s) Oral BID as needed 07/20/19 24 024 Inactive acetaminophen 500 mg tablet RxNorm: 117390 Take 2 Tablet(s) Oral BID as needed 07/20/19 24 024 Inactive sertraline 100 mg tablet RxNorm: 914273 Take 1 Tablet(s) Oral QD 07/13/19 24 024 Inactive donepezil 5 mg tablet RxNorm: 563454 TAKE ONE-HALF TABLET (2.5MG) BY MOUTH ONCE DAILY 07/05/20 23 023 Inactive Cycle refill request. Cycle restarts (07/19/23). risperidone 1 mg tablet RxNorm: 081042 Take 1 Tablet(s) Oral HS at bed time 06/25/20 23 024 Inactive trazodone 50 mg tablet RxNorm: 803025 Take 1 Tablet(s) Oral QHS every night at bedtime as needed 06/25/20 024 Inactive quetiapine 25 mg tablet RxNorm: 591195 Take 1 Tablet(s) Oral Q4H every four hours as needed 06/25/20 024 Inactive Senna-S 8.6 mg-50 mg tablet RxNorm: 596595 Take 1 Tablet(s) Oral BID as needed 06/25/20 023 Inactive trazodone 50 mg tablet RxNorm: 066723 Take 1 Tablet(s) Oral QHS every night at bedtime as needed 06/25/20 023 Inactive Senna-S 8.6 mg-50 mg tablet RxNorm: 739061 Take 1 Tablet(s) Oral BID as needed 06/25/20 024 Inactive acetaminophen 500 mg tablet RxNorm: 397584 Take 2 Tablet(s) Oral BID as needed 06/18/20 024 Inactive acetaminophen 500 mg tablet RxNorm: 473193 Take 2 Tablet(s) Oral BID as needed 06/18/20 23 023 Inactive Excedrin Extra Strength 250 mg-250 mg-65 mg tablet RxNorm: 917908 Take 2 Tablet(s) Oral QD as needed 06/18/20 23 023 Inactive Excedrin Extra Strength 250 mg-250 mg-65 mg tablet RxNorm: 866615 Take 2 Tablet(s) Oral QD as needed 06/18/20 024 Inactive risperidone 1 mg tablet RxNorm: 965525 Take 1 Tablet(s) Oral BID 06/04/20 023 Inactive quetiapine 25 mg tablet RxNorm: 931610 Take 1 Tablet(s) Oral BID as needed 06/04/20 023 Inactive trazodone 50 mg tablet RxNorm: 613163 Take 1 Tablet(s) Oral QHS every night at bedtime 06/04/20 023 Inactive donepezil 10 mg tablet RxNorm: 552163 Take 1 Tablet(s) Oral QD 06/04/20 024 Inactive risperidone 1 mg tablet RxNorm: 067214 Take 1 Tablet(s) Oral BID as needed 06/04/20 023 Inactive Senexon-S 8.6 mg-50 mg tablet RxNorm: 5919947 Take 1 Tablet(s) Oral BID 06/03/20 023 Inactive Please authorize quantity 90 day supply with PRN refills for assisted living patient. Their cycle restarts 06/14/23. Thank you! memantine 5 mg tablet RxNorm: 263933 TAKE ONE-HALF TABLET (2.5MG) BY MOUTH TWICE DAILY 06/03/20 023 Inactive Please authorize quantity 90 day supply with PRN refills for assisted living patient. Their cycle restarts 06/14/23. Thank you! divalproex 125 mg capsule,delayed release sprinkle RxNorm: 8421143 TAKE 4 CAPSULES (500MG) BY MOUTH AT BEDTIME 06/03/20 024 Inactive Please authorize quantity 90 day supply with PRN refills for assisted living patient. Their cycle restarts 06/14/23. Thank you! sertraline 50 mg tablet RxNorm: 574907 Take 1 Tablet(s) Oral QD 06/03/20 024 Inactive Please authorize quantity 90 day supply with PRN refills for assisted living patient. Their cycle restarts 06/14/23. Thank you! naproxen 500 mg tablet RxNorm: 462868 Take 1 Tablet(s) Oral BID 01/23/20 023 Inactive naproxen 500 mg tablet RxNorm: 091020 Take 1 Tablet(s) Oral BID 01/23/20 23 023 Inactive naproxen 500 mg tablet RxNorm: 317868 Take 1 Tablet(s) Oral BID 01/23/20 23 023 Inactive mirtazapine 15 mg tablet RxNorm: 546140 Take 1 Tablet(s) Oral HS at bed time 01/01/20 23 023 Inactive CYCLE FILL REQUEST FOR CYCLE THAT STARTS 01/04/2023 escitalopram 10 mg tablet RxNorm: 536280 Take 1 Tablet(s) Oral QAM every morning 12/14/19 23 023 Inactive Cycle refill request. Cycle restarts (01/04/23). cholecalciferol (vitamin D3) 50 mcg (2,000 unit) tablet RxNorm: 672394 Take 1 Tablet(s) Oral QAM every morning 12/14/19 23 023 Inactive Cycle refill request. Cycle restarts (01/04/23). melatonin 10 mg sublingual tablet RxNorm: 7684826 TAKE 1 TABLET BY MOUTH AT BEDTIME NOTE DOSAGE/STRENGTH* 12/14/19 23 023 Inactive Cycle refill request. Cycle restarts (01/04/23). rivastigmine 1.5 mg capsule RxNorm: 473956 Take 1 Capsule(s) Oral BID 12/14/19 23 023 Inactive Cycle refill request. Cycle restarts (01/04/23). quetiapine 100 mg tablet RxNorm: 371692 Take 1 Tablet(s) Oral HS at bed time 12/14/19 23 023 Inactive Cycle refill request. Cycle restarts (01/04/23). levothyroxine 50 mcg tablet RxNorm: 053956 TAKE 1 TABLET BY MOUTH ONCE DAILY BEFORE BREAKFAST 12/14/19 23 023 Inactive Cycle refill request. Cycle restarts (01/04/23). amlodipine 5 mg tablet RxNorm: 018451 Take 1 Tablet(s) Oral QAM every morning 12/14/19 23 023 Inactive Cycle refill request. Cycle restarts (01/04/23). buspirone 15 mg tablet RxNorm: 868801 Take 1 Tablet(s) Oral BID 12/14/19 23 023 Inactive Cycle refill request. Cycle restarts (01/04/23). amitriptyline 10 mg tablet RxNorm: 333154 Take 1 Tablet(s) Oral HS at bed time 12/14/19 23 023 Inactive Cycle refill request. Cycle restarts (01/04/23). levofloxacin 500 mg tablet RxNorm: 663815 Take 1 Tablet(s) Oral QD 11/24/19 23 023 Inactive levofloxacin 500 mg tablet RxNorm: 412937 Take 1 Tablet(s) Oral QD 11/24/19 023 Inactive levothyroxine 50 mcg tablet RxNorm: 771719 Take 1 Tablet(s) Oral QD before Breakfast 11/18/19 023 Inactive amitriptyline 10 mg tablet RxNorm: 632031 Take 1 Tablet(s) Oral QHS every night at bedtime 11/18/19 023 Inactive acetaminophen 500 mg tablet RxNorm: 439384 2 Tablet(s) Oral TID as needed 11/18/19 023 Inactive amlodipine 5 mg tablet RxNorm: 830638 Take 1 Tablet(s) Oral QAM every morning 11/18/19 023 Inactive melatonin 5 mg tablet RxNorm: 399317 Give 1 Tablet(s) Oral QHS every night at bedtime 11/18/19 023 Inactive buspirone 15 mg tablet RxNorm: 272663 Take 1 Tablet(s) Oral BID 11/18/19 023 Inactive Seroquel 25 mg tablet RxNorm: 820083 Take 1 Tablet(s) Oral QHS every night at bedtime 11/18/19 023 Inactive cholecalciferol (vitamin D3) 50 mcg (2,000 unit) tablet RxNorm: 243964 Take 1 Tablet(s) Oral QD 11/18/19 023 Inactive rivastigmine 1.5 mg capsule RxNorm: 910812 Take 2 Capsule(s) Oral BID 11/18/19 023 Inactive mirtazapine 15 mg tablet RxNorm: 077136 Take 1 Tablet(s) Oral QHS every night at bedtime 11/18/19 023 Inactive aspirin-acetaminoph en-caffeine 250 mg-250 mg-65 mg tablet RxNorm: 054339 Take 2 Tablet(s) Oral QD as needed 11/18/19 023 Inactive escitalopram 10 mg tablet RxNorm: 141244 Take 1 Tablet(s) Oral QD 11/18/19 023 [...] 33 1.0 09/04/2000 Vital Signs Date Vital 12/31/2023 Blood Pressure 1: 135/62 Code: 8480-6 Heart Rate 1: 77 bpm Code: 8867-4 Respiratory Rate: 21 bpm Temperature: 36.5 (C) / 97.7 (F) Weight: 171 lbs 10 oz Code: 3141-9 Reason For Visit No Reason For Visit data Encounters Encounter Performer Location Location Address Codes Date ([address]) Home or Residence Visit Est Pt - Moderate Level, 40 mins Diagnosis: UTI (urinary tract infection)[ICD10: N39.0] Diagnosis: Gait instability[ICD10 : R26.81] Diagnosis: Dementia[ICD10: F03.90] Aida Sr [facility] at [address] [address] CPT-4: 52467 12/31/2023 Plan of Care Planned Activity Notes Codes Status Date Patient Education: Patient Medication Summary Completed 12/31/2023 Patient Education: Influenza Complet ed 12/31/2023 Appointment: Aida Sr W[facility]: [address] [place], [place] [phone] [place] F/U 09/17/2023 Appointment: Adia Sr WPt[facility]: [address] [place], [place] [phone] [place] F/U 07/23/2023 Appointment: Aida Sr WPt[facility]: [address] [place], [place] [phone] [place] F/U 06/25/2023 Appointment: Bam Frey: [address] [place] [address] [id number] [place] SDV 01/22/2023 Appointment: Aida Sr WPtel: [address] [place], [place] [phone] [place] NPAWV 11/20/2022 Referral: General Psychiatrist Referral Patient/Family Scheduling Appointment Referral: [facility] Home Visits WPtel: [address], [address] [id number] Referral Order Note Incomplete Instructions Comment Date Elderly female residing in [facility] assisted living at [facility] in [place]. PMHx: dementia, cluster B personality traits, depression, hypothyroidism, HTN, anxiety, suicidal ideationsPOLST: FULL CODEFred Anatoly-spouse, Bwbf: November/-therapist: weekly calls usually on -:1 visits 3 times weekly 01/28/2024 Dementia Progressing. Patient has f/u appt with psych today. Safe in [facility] setting with 24 hour nursing supervision. Anticipate ongoing cognitive and physical decline with disease progression. Continue current care plan and reassessment in one month. Facility to update with any changes in the condition. UTI (urinary tract infection) UTI +, will start Levofloxacin 500mg qd x 7 days. Encourage adequate fluid intake. Gait instability Increase in weakness, ambulatory without aids. Will consult PT/OT to evaluate and treat. Face to face completed today. . 12/31/2023
--- NOTE | 2024-09-10 16:56 | ED_ITS ---
HPI - General Adult General Date Seen: 09/10/24 Chief complaint: Urogenital Problems, Female Stated complaint: Catheter problem Time Seen by Provider: 09/10/24 16:12 Source: EMS Mode of arrival: EMS History of Present Illness HPI narrative: Patient is an 89-year-old female brought in via EMS from her memory care unit in [place] due to her Hernandez not working. She had her Hernandez placed here 2 days ago due to inability to void. At that time she was also diagnosed with a UTI. Her Hernandez was replaced last night and since then has not been working. No other issues noted. Patient is otherwise acting normal with stable vital signs per EMS. Related Data Home Medications ?Medication ?Instructions ?Recorded ?Confirmed Senokot-S PRN 09/08/24 amlodipine 5 mg tablet 5 mg PO DAILY 09/08/24 09/08/24 divalproex 250 mg tablet,extended 250 mg PO HS 09/08/24 09/08/24 release 24 hr (Depakote ER) donepezil 5 mg tablet (Aricept) 5 mg PO QHS 09/08/24 09/08/24 levothyroxine 50 mcg capsule 50 mcg PO DAILY 09/08/24 09/08/24 memantine 2.5 mg PO BID 09/08/24 09/08/24 menthol 0.44 %-zinc oxide 20.6 % 1 applic topical TID-QID PRN 09/08/24 09/08/24 topical ointment in packet (CalaSoothe) risperidone 1 mg tablet (Risperdal) 1 mg PO BID 09/08/24 09/08/24 sertraline 100 mg tablet 100 mg PO DAILY 09/08/24 09/08/24 sertraline 50 mg tablet 50 mg PO DAILY 09/08/24 09/08/24 Allergies Allergy/AdvReac Type Severity Reaction Status Date / Time Sulfa (Sulfonamide Allergy Unknown Verified 09/08/24 18:10 Antibiotics) Review of Systems Narrative: Pertinent systems reviewed and were negative unless stated in HPI PFSH PFSH Social History Smoking Status: Former smoker Do you use any of these nicotine containing products: None How often do you have a drink containing alcohol: monthly or less AUDIT-C Alcohol total score: 1 Non-prescribed substance use: denies use service: No Exam Narrative: Exam Narrative: Const: Well-nourished, Well-developed, in no distress Eyes: PERRL, no conjunctival injection, and symmetrical lids HENT: Atraumatic external nose and ears. Moist mucous membranes. Neck: Symmetric, trachea midline, No thyromegaly. CVS: RRR, No murmurs or gallops. Peripheral pulses 2+ and equal in all extremities RESP: Unlabored respiratory effort. Clear to auscultation bilaterally. GI: firmness and tenderness to the suprapubic region with no rebound or guarding MSK:Extremities w/o deformity, Normal Active ROM Skin: Warm, Dry. No rashes or lesions. Neuro: Normal Muscle tone, No focal neurological deficits. Psych: Awake, Alert, & Oriented x3. Appropriate mood and affect. Const: Vital Signs, click to edit/add: Vital Signs - 24 hr 09/10/24 16:18 Temperature 97.4 F L Pulse Rate [Pulse Oximeter] 64 Respiratory Rate 18 Blood Pressure [Ri ght Upper Arm] 137/62 Pulse Oximetry 92 Oxygen Delivery Me thod Room Air Course Vital Signs Vital signs: Initial Vital Signs Temperature 97.4 F L 09/10/24 16:18 Temperature Source Temporal Artery Scan 09/10/24 16:18 Pulse Rate 64 09/10/24 16:18 Pulse Rhythm Regular 09/10/24 16:18 Respiratory Rate 18 09/10/24 16:18 Blood Pressure 137/62 09/10/24 16:18 Blood Pressure Mean 87 09/10/24 16:18 Blood Pressure Position Supine 09/10/24 16:18 Pulse Oximetry 92 09/10/24 16:18 Oxygen Delivery Method Room Air 09/10/24 16:18 Vital Signs Temperature 97.4 F L 09/10/24 16:18 Pulse Rate 64 09/10/24 16:18 Respiratory Rate 18 09/10/24 16:18 Blood Pressure 137/62 09/10/24 16:18 Pulse Oximetry 92 09/10/24 16:18 Oxygen Delivery Method Room Air 09/10/24 16:18 Temperature 97.4 F L 09/10/24 16:18 Pulse Rate 64 09/10/24 16:18 Respiratory Rate 18 09/10/24 16:18 Blood Pressure 137/62 09/10/24 16:18 Pulse Oximetry 92 09/10/24 16:18 Oxygen Delivery Method Room Air 09/10/24 16:18 Medical Decision Making MDM Narrative Medical decision making narrative: patient is 89-year-old female presenting for a Hernandez catheter that not working. Bladder scan shows 600 mL in her bladder. Hernandez was replaced it is now draining appropriately. Patient will be discharged Back to her memory care unit. I have low concern for postobstructive diuresis as there is only 700 mL drained. The daughter did speak to the patient's retirement in they state that Hernandez has not been replaced at all and this is the same Hernandez that was placed when she was discharged a couple days ago. Family is concerned about the patient not eating over the past few days and was supposed to get lab work done on Sunday but this never occurred. Will do CBC and BMP at this time. We also states she will occasionally have her oxygen drop at her retirement. Her oxygen has been satting 94% the entire time here in the emergency department with perfect waveform. She was already on antibiotic. I do not believe a chest x-ray is necessary. lab work returned showing no concerning findings. Patient is fully drainage of 100 mL while waiting for labs to return. She is doing well and I believe she is safe for discharge back to her retirement. Lab Data Labs: Lab Results 09/10/24 Range/Units 17:56 WBC 9.54 (4.50-11.00) K/uL RBC 3.97 L (4.00-5.20) m/uL Hgb 12.7 (12.0-16.0) gm/dL Hct 37.4 (33.0-51.0) % MCV 94 (80-100) fL MCH 32 (26-34) pg MCHC 34 (32-36) gm/dL RDW Coeff of Lambert 12.2 (11.5-15.5) % Plt Count 262 (140-440) K/uL Neut % (Auto) 70.4 (42.0-72.0) % Lymph % (Auto) 15.7 L (20-44) % Forrest % (Auto) 11.9 H (0.0-11.0) % Eos % (Auto) 1.5 (0.0-7.0) % Baso % (Auto) 0.3 (0.0-3.0) % Neut # (Auto) 6.71 (1.7-7.0) K/uL Lymph # (Auto) 1.50 (0.90-2.90) K/uL Forrest # (Auto) 1.10 H (0.00-0.90) K/UL Eos # (Auto) 0.14 (0.00-0.50) K/uL Baso # (Auto) 0.03 (0.00-0.30) K/uL Abs Immat Gran (auto) 0.02 (0.00-0.30) K/uL Imm/Tot Granulo (auto) 0.2 % Sodium 137 (135-149) mmol/L Potassium 3.5 L (3.6-5.1) mmol/L Chloride 102 (96-114) mmol/L Carbon Dioxide 24 (20-32) mmol/L Anion Gap 11 (7-15) mEq/L BUN 13 (7-30) mg/dL Creatinine 0.5 (0.5-1.5) mg/dL Estimated Creat Clear 32.17 Estimated GFR 90 ml/min Glucose 101 (60-115) mg/dL Calcium 8.9 (8.4-10.6) mg/dL Discharge Plan Discharge Clinical Impression: Hernandez catheter problem Qualifiers: Encounter type: initial encounter Qualified Code(s): T83.9XXA - Unspecified complication of genitourinary prosthetic device, implant and graft, initial encounter Patient Disposition: Home, Self-Care Condition: Stable Additional Instructions: Take her previously prescribed antibiotics as prescribed. Return to emergency department for new or worsening symptoms. Prescriptions: No Action amlodipine 5 mg tablet 5 mg PO DAILY CalaSoothe 0.44-20.6 % ointment in packet 1 applic topical TID-QID PRN divalproex [Depakote ER] 250 mg tablet extended release 24 hr 250 mg PO HS donepezil [Aricept] 5 mg tablet 5 mg PO QHS levothyroxine 50 mcg capsule 50 mcg PO DAILY memantine 2.5 mg PO BID risperidone [Risperdal] 1 mg tablet 1 mg PO BID Senokot-S PRN sertraline 100 mg tablet 100 mg PO DAILY sertraline 50 mg tablet 50 mg PO DAILY Follow Up/Referrals: Provider,Not a Local [Primary Care Provider] - Stand Alone Forms: [employer] Info Instructions
--- OUTSIDE RECORDS SUMMARY | 2024-09-10 17:11 | XMS_ITS | CCD ---
Author Name Aida Sr CNP Address [address] [place] [address] Phone Organization [facility] Phone Care Team Providers Care [employer] Radio Installer Name Role Phone Orin RADHAAida Primary Care Provider Unavaila ble Orin DRAFTER (CAD) ELECTRICALAida Chronic Care Management Unavai lable Summary Purpose DataExchange Insurance Providers Payer name Policy type / Coverage type Covered alliance party ID Effective Begin Date Effective End Date VFA Commercial Insurance [id number] Unknown [id number] Family History Family History data not found Allergies, Adverse Reactions, Alerts Substance Reaction Codes Entered Date Inactivated Date Status Sulfa Unknown 11/14/2022 No Inactive Date Ac tive Problems Condition Codes Effective Dates Condition St atus Dementia ICD-10: F03.90 ICD-9: 294.20 02/26/2023 Active Depression, major, recurrent, mild ICD-1 0: [...] Fill Instructions naproxen 500 mg tablet RxNorm: 484147 Take 1 Tablet(s) Oral BID 01/23/20 023 Inactive naproxen 500 mg tablet RxNorm: 683222 Take 1 Tablet(s) Oral BID 01/23/20 023 Inactive naproxen 500 mg tablet RxNorm: 537639 Take 1 Tablet(s) Oral BID 01/23/20 023 Inactive mirtazapine 15 mg tablet RxNorm: 760015 Take 1 Tablet(s) Oral HS at bed time 01/01/20 023 Inactive CYCLE FILL REQUEST FOR CYCLE THAT STARTS 01/04/2023 escitalopram 10 mg tablet RxNorm: 032028 Take 1 Tablet(s) Oral QAM every morning 12/14/19 023 Inactive Cycle refill request. Cycle restarts (01/04/23). melatonin 10 mg sublingual tablet RxNorm: 2778085 TAKE 1 TABLET BY MOUTH AT BEDTIME NOTE DOSAGE/STRENGTH* 12/14/19 023 Inactive Cycle refill request. Cycle restarts (01/04/23). rivastigmine 1.5 mg capsule RxNorm: 329398 Take 1 Capsule(s) Oral BID 12/14/19 023 Inactive Cycle refill request. Cycle restarts (01/04/23). quetiapine 100 mg tablet RxNorm: 509234 Take 1 Tablet(s) Oral HS at bed time 12/14/19 23 023 Inactive Cycle refill request. Cycle restarts (01/04/23). buspirone 15 mg tablet RxNorm: 204816 Take 1 Tablet(s) Oral BID 12/14/19 023 Inactive Cycle refill request. Cycle restarts (01/04/23). amitriptyline 10 mg tablet RxNorm: 356092 Take 1 Tablet(s) Oral HS at bed time 12/14/19 23 023 Inactive Cycle refill request. Cycle restarts (01/04/23). cholecalciferol (vitamin D3) 50 mcg (2,000 unit) tablet RxNorm: 600820 Take 1 Tablet(s) Oral QAM every morning 12/14/19 23 023 Inactive Cycle refill request. Cycle restarts (01/04/23). levothyroxine 50 mcg tablet RxNorm: 380726 TAKE 1 TABLET BY MOUTH ONCE DAILY BEFORE BREAKFAST 12/14/19 23 023 Inactive Cycle refill request. Cycle restarts (01/04/23). amlodipine 5 mg tablet RxNorm: 772537 Take 1 Tablet(s) Oral QAM every morning 12/14/19 23 023 Inactive Cycle refill request. Cycle restarts (01/04/23). levofloxacin 500 mg tablet RxNorm: 487123 Take 1 Tablet(s) Oral QD 11/24/19 23 023 Inactive levofloxacin 500 mg tablet RxNorm: 054213 Take 1 Tablet(s) Oral QD 11/24/19 23 023 Inactive acetaminophen 500 mg tablet RxNorm: 185061 2 Tablet(s) Oral TID as needed 11/18/19 23 023 Inactive Seroquel 25 mg tablet RxNorm: 955257 Take 1 Tablet(s) Oral QHS every night at bedtime 11/18/19 23 023 Inactive aspirin-acetaminoph en-caffeine 250 mg-250 mg-65 mg tablet RxNorm: 302744 Take 2 Tablet(s) Oral QD as needed 11/18/19 23 023 Inactive levothyroxine 50 mcg tablet RxNorm: 893379 Take 1 Tablet(s) Oral QD before Breakfast 11/18/19 23 023 Inactive amitriptyline 10 mg tablet RxNorm: 737303 Take 1 Tablet(s) Oral QHS every night at bedtime 11/18/19 23 023 Inactive amlodipine 5 mg tablet RxNorm: 575612 Take 1 Tablet(s) Oral QAM every morning 11/18/19 023 Inactive melatonin 5 mg tablet RxNorm: 163556 Give 1 Tablet(s) Oral QHS every night at bedtime 11/18/19 023 Inactive buspirone 15 mg tablet RxNorm: 107478 Take 1 Tablet(s) Oral BID 11/18/19 023 Inactive cholecalciferol (vitamin D3) 50 mcg (2,000 unit) tablet RxNorm: 343651 Take 1 Tablet(s) Oral QD 11/18/19 023 Inactive rivastigmine 1.5 mg capsule RxNorm: 349684 Take 2 Capsule(s) Oral BID 11/18/19 023 Inactive mirtazapine 15 mg tablet RxNorm: 135306 Take 1 Tablet(s) Oral QHS every night at bedtime 11/18/19 023 Inactive escitalopram 10 mg tablet RxNorm: 270012 Take 1 Tablet(s) Oral QD 11/18/19 023 Inactive Medication Administered No Medication Administered data Immunizations Vaccine Codes Dose Date Status Influenza CVX: 205 1.0 04/06/2022 Covid-19 ([employer] mR NA, LNP-S, PF, 30 mcg/0.3 mL [...] 33 1.0 09/04/2000 Vital Signs Date Vital 02/26/2023 Blood Pressure 1: 154/84 Code: 8480-6 Heart Rate 1: 74 bpm Code: 8867-4 Respiratory Rate: 18 bpm Temperature: 35.7 (C) / 96.3 (F) Weight: 160 lbs Code: 3141-9 Reason For Visit No Reason For Visit data Encounters Encounter Performer Location Location Address Codes Date ([address]) Home or Residence Visit Est Pt - Moderate Level, 40 mins Diagnosis: Dementia[ICD10: F03.90] Diagnosis: Depression, major, recurrent, mild[ICD10: F33.0] Aida Sr [facility] at [address] [address] CPT-4: 53072 02/26/2023 Plan of Care Planned Activity Notes Codes Status Date Patient Education: Patient Medication Summary Completed 02/26/2023 Patient Education: Influenza Vaccine Completed 02/26/2023 Appointment: Bam Frey: [address] [place], [place] [id number] SDV 01/22/2023 Appointment: Aida Sr WPtel: [address] [place], [place] [phone] NPAWV 11/20/2022 Referral: General Psychiatrist Referral Patient/Family Scheduling Appointment Referral: [facility] [address] [facility] [id number] Referral Order Note Incomplete Instructions Comment Date Elderly female residing [facility]. PMHx: dementia, cluster B personality traits, depression, hypothyroidism, HTN, anxiety, suicidal ideationsPOLST: FULL CODEFred Anatoly-spouse, Fani: November/-therapist: weekly calls usually on -1:1 visits 3 times weekly 01/28/2024 Neurocognitive Disorders Appreciate [facility] psych and [facility]. Gradual progressive worsening as anticipated with disease course. Appropriate for memory care. Monitor need for increased services, reassess at f/u in 1 month. Depression Continue current medication regimen. Patient is scheduled to see psych this week. Appreciated [facility]. Monitor for increased sadness, depression, increased sleeping, self-isolating, & decreased appetite. . 02/26/2023
--- OUTSIDE RECORDS SUMMARY | 2024-09-10 17:12 | XMS_ITS | Referral Summary ---
Author Organization [employer] [facility] Address [address] [place] [address] Care Team Providers Care Clinical Technician Name Role Phone Luis Fernando, [facility] [facility] [phone] Yaneth Reyes MD Primary Care P rovider Allergies Active Allergy Reactions Criticality Noted Date Comments Sulfa (Sulfonamide Antibiotics) Nausea and / or Vomiting 08/20/2007 Medications acetaminophen 500 mg oral tablet Take 2 Tablets (1,000 mg) by mouth in the morning and 2 Tablets (1,000 mg) at noon and 2 Tablets (1,000 mg) before bedtime. 2 Tablet 2 1 Active mirtazapine (REMERON) 15 mg oral TabletIndications:I nsomnia, unspecified type Take 1 Tablet (15 mg) by mouth at bedtime. 90 Tablet 3 3 Active busPIRone (BUSPAR) 15 mg oral TabletIndications:G eneralized anxiety disorder Take 1 Tablet (15 mg) by mouth in the morning and 1 Tablet (15 mg) in the evening. 180 Tablet 3 3 Active cholecalciferol, vitamin D3, (VITAMIN D3) 2,000 unit oral Capsule Take 1 Capsule (2,000 Units) by mouth in the morning. 90 Capsule 3 3 Active escitalopram oxalate (LEXAPRO) 10 mg oral TabletIndications:G eneralized anxiety disorder Take 1 Tablet (10 mg) by mouth in the morning. 90 Tablet 3 3 Active levothyroxine (SYNTHROID) 50 mcg oral TabletIndications:A cquired hypothyroidism Take 1 Tablet (50 mcg) by mouth daily before breakfast. 90 Tablet 3 3 Active melatonin 5 mg oral TabletIndications:O ther insomnia Take 2 Tablets (10 mg) by mouth at bedtime. 180 Tablet 3 3 Active rivastigmine tartrate (EXELON) 1.5 mg oral CapsuleIndications: Major depressive disorder, recurrent, moderate (HCC) Take 1 Capsule (1.5 mg) by mouth in the morning and 1 Capsule (1.5 mg) in the evening. 60 Capsule 3 Active naproxen (NAPROSYN) 500 mg oral Tablet Take 1 Tablet (500 mg) by mouth if needed each day. FOR PAIN 3 Active amLODIPine (NORVASC) 5 mg oral TabletIndications:H ypertension, unspecified type Take 1 Tablet (5 mg) by mouth in the morning. 90 Tablet 2 3 Active amitriptyline (ELAVIL) 10 mg oral TabletIndications:V ulvodynia Take 1 Tablet (10 mg) by mouth at bedtime. 90 Tablet 2 3 Active QUEtiapine (SEROQUEL) 100 mg oral TabletIndications:I nsomnia, unspecified type Take 1 Tablet (100 mg) by mouth at bedtime. 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 Overview (10/27/2020): Varicose veins External hemorrhoid 04/16/2008 Overview (10/27/2020): Epic 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 10/28/2007 Overview (10/27/2020): Comment: 2003; L4-5 and L5-S1 Comment: 2003; L4-5 and L5-S1 Constipation 07/26/2006 Menopausal and female climacteric states 006 Insomnia 11/15/2005 Overview (04/13/2020): Overview: Epic Esophageal reflux 11/15/2005 Generalized anxiety disorder 11/25/2004 Non-toxic multinodular goiter 08/11/2004 Midline cystocele 02/24/2004 Hypothyroidism Hypertension Resolved Problems Problem Noted Date Diagnosed Date Resolved Date Generalized weakness 04/07/2020 021 Cough 04/07/2020 07/25/2020 Severe sepsis 04/07/2020 07/25/2020 Chest pain 01/12/2020 07/25/2020 Vertigo 03/27/2019 07/25/2020 Syncope 02/28/2017 02/01/2018 Sepsis 02/28/2017 02/01/2018 NSTEMI (non-ST elevated myoc ardial infarction) 04/24/2016 01/25/2021 Acute cystitis 04/24/2016 02/01/2018 Vitamin D insufficiency 05/14/201307/09 Major depressive disorder, r ecurrent episode, moderate 06/10/2003 07/25/2020 Urinary tract infection 01/07 Immunizations Name Administration Dates Next Due DT Vaccine, <7 Yrs, IM 01/03/2002 Hepatitis A Vaccine, IM, Dylan lt (> 19 yrs) 08/15/2011,08/16/2010 Influenza Vac, H1N1 06/23/2009 Influenza Vac, IM, Quadrival ent (aIIV4), Inactivated, Adjuvanted, Preserv Free (65+ Yrs) 04/06/2022 Influenza Vac, IM, Quadrival ent Preserv Free, (>6 months) 04/29/2021 Influenza Vac, IM, Quadrival ent, Preserv Free, Split Virus (Fluzone 65+) 03/19/2020,03/20/2019,04/18/2018,2016,05/09/2016,03/30/2015,04/20/2014,1 ,04/15/2012,04/03/2011, 010 Influenza Vac, IM, Trivalent (>3 Yrs) ,05/06/2008,05/15/2007,2005,05/02/2005,04/19/2004,04/27/2003 Influenza Vac, IM, Trivalent , Preserv Free (Flulaval)(Fluarix)(Fluzone) 05/06/2008,05/15/2007,05/11/2006,2004,04/19/2004,04/27/2003 Pneumococcal Conj Vac, 13-va lent (Prevnar) 05/09/2016 Pneumococcal Vac, 23-valent, IM-SQ (Pneumovax) 04/03/2011,01/02/2001,09/04/2000 SARS-COV-2, IM (COVID-19)(Pfizer)(Vital Label) 02/08/2022 SARS-CoV-2, IM (COVID-19)(Pfizer)(Purple Label) 04/11/2021,08/31/2020,08/10/2020 Td, Tetanus-Diphtheria(Prese rv Free,>7yrs)(Tenivac)(Decavac) 01/03/2002 Tdap Vaccine, IM, (Adacel)(Boostrix) 07/26/2020, 08/16/2010 Varicella Vaccine, IM (Shingrix) 02/10/2019,07/10 Varicella Vaccine, SQ (Zostavax) 07/08/2007 Social History Tobacco Use Types Packs/Day Years Used Date Smoking Tobacco: Never Smokeless Tobacco: Never Tobacco Cessation:Counseling Given: No Comments:none Alcohol Use Standard Drinks/Week Comments Yes 0 (1 standard drink = 0.6 oz pure alcohol) RARE - one drink per week - mixed drink Humiliation, Afraid, Rape, and Kick questionnair e Answer Date Recorded Within the last year, have y ou been afraid of your partner or ex-partner? No 09/14/2021 Within the last year, have y ou been humiliated or emotionally abused in other ways by your partner or ex-partner? No Within the last year, have y ou been kicked, hit, slapped, or otherwise physically hurt by your partner or ex-partner? No 09/14/2021 Within the last year, have y ou been raped or forced to have any kind of sexual activity by your partner or ex-partner? No 09/14/2021 Social Connection and Isolat ion Panel [NHANES] Answer Date Recorded In a typical week, how many times do you talk on the phone with family, friends, or neighbors? Three times a week 09/14/2021 How often do you get togethe r with friends or relatives? Patient declined 09/14/2021 How often do you attend [facility] or amish services? More than 4 times per year 09/14/2021 Do you belong to any clubs o r organizations such as confucianism groups, unions, fraternal or athletic groups, or school groups? Yes 09/14/2021 How often do you attend meet ings of the clubs or organizations you belong to? More than 4 times per year 09/14/2021 Are you , , di vorced, , never , or living with a partner? 09/14/2021 AUDIT-C Answer Date Recorded Q1: How often do you have a drink containing alc ohol? 2-4 times a month 09/14/2021 Q2: How many drinks containi ng alcohol do you have on a typical day when you are drinking? Patient declined 09/14/2021 Q3: How often do you have si x or more drinks on one occasion? Never 09/14/2021 Overall Financial Resource Strain (CARDIA) Answe r Date Recorded How hard is it for you to pa y for the very basics like food, housing, medical care, and heating? Not hard at all 09/14/2021 [facility] - Occupational Stress Questionnaire Answer Date Recorded Do you feel stress - tense, restless, nervous, or anxious, or unable to sleep at night because your mind is troubled all the time - these days? To some extent 09/14/2021 Exercise Vital Sign Answer Date Recorde d On average, how many days pe r week do you engage in moderate to strenuous exercise (like a brisk walk)? 4 days 09/14/2021 On average, how many minutes do you engage in exercise at this level? 20 min 09/14/2021 Hunger Vital Sign Answer Date Recorded Within the past 12 months, y ou worried that your food would run out before you got the money to buy more. Never true 09/15/19 22 Within the past 12 months, t he food you bought just didn't last and you didn't have money to get more. Never true 09/14/2021 PRAPARE - Transportation Answer Date Re corded In the past 12 months, has l ack of transportation kept you from medical appointments or from getting medications? No 03/2022 In the past 12 months, has l ack of transportation kept you from meetings, work, or from getting things needed for daily living? No 09/14/2021 Housing Stability Answer Date Recorded In the last 12 months, was t here a time when you were not able to pay the mortgage or rent on time? No 09/14/2021 In the last 12 months, how many places have you lived? 2 09/14/2021 Number of Places Lived in the Last Year (Outpati ent) Not on file 09/14/2021 Number of Places Lived in the Last Year (Inpatie nt) Not on file 09/14/2021 In the last 12 months, was t here a time when you did not have a steady place to sleep or slept in a halfway (including now)? No 09/14/2021 Depression (PHQ-9) Answer Date Recorded Last PHQ-9 Score Not on file 10/21/2023 Thoughts of self harm Not at all 10/21/2023 Intimate Partner Violence Answer Date R ecorded Physically hurt, threatened and/or made to feel afraid No 07/25/2023 Comments No Sex and Gender Information Value Date Recorded Sex Assigned at Not on file Legal Sex Female 10:54 PM [employer] Gender Identity Not on file Sexual Orientation Not on file Occupation Industry Job Start Date Job End Date retired Not on file Not on file Not on file Last Filed Vital Signs Vital Sign Reading Time Taken Comments Blood Pressure 132/72 10/12/2022 2:53 PM CDT Pulse 63 10/05/2022 6:00 AM CDT Temperature 36.8 C (98.2 F) 10/05/2022 6:00 AM CDT Respiratory Rate 18 10/05/2022 12:00 PM CDT Oxygen Saturation 97% 10/05/2022 6:00 AM CDT Inhaled Oxygen Concentration - - Weight 70.9 kg (156 lb 4.8 oz) 10/12/2022 2:00 P M CDT Height 158.8 cm (5' 2.5) 10/12/2022 2:00 PM CDT Body Mass Index 28.13 10/12/2022 2:00 PM CDT Functional Status * Are you deaf or do you have serious difficulty hearing? Answer Date of Assessment Author No 09/29/2022 10:00 AM CDT Nikky Abbott, RN * Are you blind or do you have serious difficulty seeing, even when wearing glasses? Answer Date of Assessment Author Yes 09/29/2022 10:00 AM CDT Nikky Abbott, RN * Do you have serious difficulty walking or climbing stairs? Answer Date of Assessment Author No 09/29/2022 10:00 AM CDT Nikky Abbott, RN * Do you have difficulty dressing or bathing? Answer Date of Assessment Author No 09/29/2022 10:00 AM CDT Nikky Abbott, RN * Do you have difficulty doing errands alone such as visiting a doctor's office or shopping because of a physical, mental, or emotional condition? Answer Date of Assessment Author No 09/29/2022 10:00 AM Nikky Johnson RN Mental Status * Do you have trouble concentrating, remembering, or making decisions because of a physical, mental, or emotional condition? Answer Entry Date Author Yes 09/29/2022 10:00 AM Nikky Johnson RN Plan of Treatment Not on file Goals Goal Patient Goal Type Associated Problems Recent Progress Patient-Stated? Author Increase water intake Diet No Rosalia Rai RN Note: 64 ounces daily Eat more fruit and vegetables Diet No Rosalia Rai RN Note: 1 1/2 cups daily Procedures Procedure Name Priority Date/Time Associated Diagnosis Comments LIPID PANEL Routine 08/02/2022 8:12 AM [employer] Mixed hyperlipidemia DEXA HIP AND SPINE Routine 08/07/2019 9: 56 AM [employer] Other osteoporosis without current pathological fracture Postmenopausal from Last 3 Months or Most Recently Relevant to Health Maintenance Results * LIPID PANEL (08/02/2022 8:12 AM [employer]) Cholesterol 199 <200 mg/dL 08/02/2022 11:51 AM [employer] [facility] Triglycerides 118 30 - 150 mg/dL 08/02/2022 11:51 AM [employer] [facility] Cholesterol, LDL (Calculated) 128 0 - 159 mg/dL 08/02/2022 11:51 AM [employer] [facility] Cholesterol, HDL 47 >40 mg/dL 08/02/19 23 11:51 AM [employer] [facility] Cholesterol, vLDL 24 mg/dL 023 11:51 AM [facility] Fasting Status Yes 08/02/2022 11:51 AM [facility] Blood VENOUS BLOOD / Unknown Venipuncture / Unknown 08/02/2022 8:12 AM [employer] 08/02/2022 8:13 AM [employer] us Yaneth Reyes MD LAB CHEMISTRY O RDERABLES Final Result [facility] [address] [place] [address], [place] [phone] * DEXA HIP AND SPINE (08/07/2019 9:56 AM [employer]ACING [employer]) Anatomical Region Laterality Modality Hip, Spine Other Narrative 08/12/2019 9:14 AM [employer] INTERPRETING PROVIDER: Theron Frey MD BONE DENSITOMETRY: Patient reported pertinent medications: Calcium, vitamin D, levothyroxine. Diagnosis: Other osteoporosis, postmenopausal. Left Total hip: T-score= -1.4 BMD(g/cm2)= 0.768 % change from baseline(02/22/1999) = 0.6% % change from previous(NA) Femoral neck: T-score= -3.0 BMD(g/cm2)= 0.519 % change from baseline(02/22/1999) = -3.0% % change from previous(NA) Lumbar spine: T-score= -1.5 BMD(g/cm2)= 0.867 % change from baseline(02/22/1999) = -3.9%* % change from previous(NA) Conclusion: Osteoporosis. The bone mineral density of the femoral neck places the patient at a markedly increased risk for future fractures. Comments: An L3 partial vertebral compression fracture may be present. Degenerative changes are present at this level, as well as throughout the lumbar spine. The degenerative changes and possible partial vertebral compression fracture have developed since the baseline study of 1998. Serial changes in bone mineral density should be interpreted cautiously at the spine, if at all. The L3 vertebra was excluded from the reported analysis. DEXA is not designed for morphological analysis. Thoracic and lumbar spine x-rays are recommended if recent spinal imaging has not been performed. The current hip study is comparable to the baseline hip study of 1998. *Asterisks denote statistically significant changes. Clinical risk factors include (but are not limited to): Postmenopausal women >65 yrs., osteopenia on x-ray. Postmenopausal women <65 yrs. if or , weight <127 lbs, surgical or natural menopause before 40, tobacco use, alcohol >2 drinks/day, first degree relative with a fracture after 45 yrs. Other: Premenopausal amenorrhea > 1 yr., RA, Crohn's, Prednisone>7.5 mg qd 3 months or longer, transplant pt. Osteopenia (T-score between -1.0 and -2.5) Osteoporosis (T-score more negative than -2.5) WHO criteria for postmenopausal females & men > age 65 or men 50-65 years with risk factors. Z-score of -2.0 or lower is defined as below the expected range for age. All treatment decisions require clinical judgment and consideration of individual patient factors, including patient preferences, co morbidities, previous drug use, risk factors not captured in the FRAX model (e.g., frailty, falls, vitamin D deficiency, increased bone turnover, interval significant decline in bone density) and possible under- or over- estimation of fracture risk by FRAX. According to the National Osteoporosis Foundation, FRAX is to be used to assist with treatment decisions only in the following populations: An untreated postmenopausal woman or man age 50 or older with low bone mass (T-score between -1.0 and -2.5), with no prior hip or vertebral fracture, and an evaluable hip for DEXA study. Untreated patients include: No estrogen or hormone therapy, SERM, calcitonin, PTH, denosumab for the past one year, no bisphosphonates for the past two years (unless oral taken for <2 months). In addition, the National Osteoporosis Foundation Guide recommends that FDA-approved medical therapies be considered in postmenopausal women and men > or = to 50 yrs with: a. Hip or vertebral (clinical or morphometric) fracture. b. T-score of, or = -2.5 at the spine or hip c. Ten-year fracture probability by FRAX of > or = to 3% for hip fracture, or > or = to 20% for major osteoporotic fracture. Yaneth Reyes MD RAD DEXASCAN Final Result from Last 3 Months or Most Recently Relevant to Health Maintenance Insurance [id number] [id number] [employer] [id number] [place] [id number] [employer] * Guarantor: [facility] Account Type Relation to Patient Date of Phone Billing Address [facility] Other NONE (Work) [address] [facility] [place] [address] Advance Directives Documents on File Type Date Recorded Patient Auto Striper Expl anation Advanced Directives 12/17/2017 7:15 AM HCD * Full Code (Latest Code Status on File) Date Activated Date Inactivated Comments 09/29/2022 11:50 AM 10/05/2022 4:46 PM * Full Code Date Activated Date Inactivated Comments 04/21/2021 7:30 PM 04/22/2021 8:59 PM * Full Code Date Activated Date Inactivated Comments 04/07/2020 8:09 PM 04/10/2020 6:03 PM * Full Code Date Activated Date Inactivated Comments 01/12/2020 5:00 AM 01/12/2020 7:53 PM * Full Code Date Activated Date Inactivated Comments 03/27/2019 12:32 PM 03/28/2019 2:00 PM Healthcare Agents on File Name Relationship Healthcare Agent Relationshi p Communication John Ledbetter Son First Alternate Health Care Agent Selma Ledbetter Daughter Second Alterna te Health Care Agent Olman Ledbetter Health Care Agent Mile Ledbetter Daughter Alternate Health Care Agen t Care Teams Clinical Technician Relationship Specialty Start Date End Date Yaneth Reyes MD [address] [place] [phone] PCP - General Family Medicine 04/16/20 [place] [address] [place] [address] 08/06/17 Additional Source Comments PLEASE NOTE: Replies to this message will not be received.[facility]
--- OUTSIDE RECORDS SUMMARY | 2024-09-10 17:12 | XMS_ITS | Clinical Summary ---
Author Organization [employer] [facility] Address [address] [place] [address] Care Team Providers Care Card Cleaner Name Role Phone Luis Fernando, Subacute Unit [facility] [phone] Yaneth Reyes MD Primary Care P rovider [...] (11/18/2021): Added automatically from request for surgery [id number] Major depressive disorder, recurrent, moderate 1 07/31/2020 [...] (Shingrix) 02/10/2019,07/10 Varicella Vaccine, SQ (Zostavax) 07/08/2007 Family History Medical History Relation Name Comments Heart Disease Brother age 58 of [place] Other Brother mitral valve pr olapse Heart Disease Father Hypertension Father Arthritis Mother Hypertension Mother Other Son mitral valve pr olapse Relation Name Status Comments Brother Father Mother Son Social History Tobacco Use Types Packs/Day Years [...] declined 09/14/2021 How often do you attend chur or bahai services? More than 4 times per year 09/14/2021 Do you belong to any clubs o r organizations such as restoration groups, unions, fraternal or athletic groups, or [...] and heating? Not hard at all 09/14/2021 [facility] - Occupational Stress [...] place to sleep or slept in a nursing home (including now)? 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 Gender Identity Not on file Sexual Orientation [...] Mass Index 28.13 10/12/2022 2:00 PM CDT Plan of Treatment Health Maintenance Due Date Last Done Comments Respiratory Syncytial Virus (RSV) Vaccine (1 - 1-dose 75+ series) 2011 Depression Screening 04/07/2023 10/05/2022 Medicare Annual Visit 08/04/2023 08/04/2022 , 08/01/2021, 07/26/2020 COVID-19 Vaccine ( season) 2024 02/08/2022, 04/11/2021, 08/31/2020, Additional history exists Influenza Vaccine (#1) 2024 , 04/29/2021, 03/19/2020, Additional history exists Lipids Standard 08/02/2027 08/02/2022, 07/10, 07/23/2020, Additional history exists Osteoporosis Screening-Female > 65 Years 08/07/2029 08/07/2019, 08/07/2019, 07/18/2017, Additional history exists DTaP/Tdap/Td Vaccines (5 - Td or Tdap) 07/26/2030 07/26/2020, 08/16/2010, 01/03/2002, Additional history exists Hepatitis A Vaccines Aged Out 08/15/2011, 08/16/19 11 No longer eligible based on patient's age to complete this topic Pneumococcal Vaccine (50+ Years) Completed 05/09/2016, 04/03/2011, 01/02/2001, Additional history exists Varicella Zoster Sequential Completed 11/2018, 07/31/2018, 07/08/2007 HIB Vaccines Aged Out No longer eligi ble based on patient's age to complete this topic HPV Vaccines Aged Out No longer eligi ble based on patient's age to complete this topic Hepatitis B Vaccines Aged Out No long er eligible based on patient's age to complete this topic Meningococcal B Vaccines Aged Out No longer eligible based on patient's age to complete this topic Meningococcal Vaccines Aged Out No lo nger eligible based on patient's age to complete this topic Goals Goal Patient Goal Type Associated Problems Recent Progress Patient-Stated? Author Increase water intake Diet No Rosalia Rai RN Note: 64 ounces daily Eat more fruit and vegetables Diet No Rosalia Rai RN Note: 1 1/2 cups daily Procedures Procedure Name Priority Date/Time Associated Diagnosis Comments LIPID PANEL Routine 08/02/2022 8:12 AM MACHINE CLOTHING REPLACER Mixed hyperlipidemia DEXA HIP AND SPINE Routine 08/07/2019 9: 56 AM MACHINE CLOTHING REPLACER Other osteoporosis without current pathological fracture Postmenopausal from Last 3 Months or Most Recently Relevant to Health Maintenance Results * LIPID PANEL (08/02/2022 8:12 AM MACHINE CLOTHING REPLACER) Cholesterol 199 <200 mg/dL 08/02/2022 11:51 AM MACHINE CLOTHING REPLACER [facility] Triglycerides 118 30 - 150 mg/dL 08/02/2022 11:51 AM MACHINE CLOTHING REPLACER [facility] Cholesterol, LDL (Calculated) 128 0 - 159 mg/dL 08/02/2022 11:51 AM MACHINE CLOTHING REPLACER [facility] Cholesterol, HDL 47 >40 mg/dL 08/02/19 23 11:51 AM MACHINE CLOTHING REPLACER [facility] Cholesterol, vLDL 24 mg/dL 023 11:51 AM [facility] Fasting Status Yes 08/02/2022 11:51 AM [facility] Blood VENOUS BLOOD / Unknown Venipuncture / Unknown 08/02/2022 8:12 AM MACHINE CLOTHING REPLACER 08/02/2022 8:13 AM MACHINE CLOTHING REPLACER us Yaneth Reyes MD LAB CHEMISTRY O RDERABLES Final Result [facility] [address] [place] [address], * DEXA HIP AND SPINE (08/07/2019 9:56 AM MACHINE CLOTHING REPLACER) Anatomical Region Laterality Modality Hip, Spine Other Narrative 08/12/2019 9:14 AM MACHINE CLOTHING REPLACER INTERPRETING PROVIDER: Theron Frey MD BONE DENSITOMETRY: [...] = to 20% for major osteoporotic fracture. 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 [place] [address] 08/06/17 Additional Source Comments PLEASE NOTE: Replies to this message will not be received.[facility]
--- OUTSIDE RECORDS SUMMARY | 2024-09-10 17:14 | XMS_ITS | Encounter Summary ---
Author Organization [facility] [employer] [facility] Address [address] [place] [address] Care Team Providers Care Hoseman Name Role Phone Yaneth Reyes MD Primary Care P rovider [place], Subacute Unit St. Unavailable Yaneth Reyes MD Unavailable Unknown, Provider Primary Care Provider Unavaila ble Provider, No Primary Primary Care Provider Unava ilable Yaneth Reyes MD Unavailable Yaneth Reyes MD Primary Care P rovider Encounter Details Date Type Department Care Team (Late st Contact Info) Description 07/03/2016 Historical Conversion [facility] Medicine [address] [facility] [place] [address] KenishaRefugio dorado Oz, PAC [address] [facility] [address] [place] [address] Social History Tobacco Use Types Packs/Day Years Used Date Smoking Tobacco: Never Smokeless Tobacco: Never Alcohol Use Standard Drinks/Week Comments Yes 0 (1 standard drink = 0.6 oz pur e alcohol) RARE Comments No Sex and Gender Information Value Date Recorded Sex Assigned at Not on file Legal Sex Female 10:54 PM HEALTH UNDERWRITER Gender Identity Not on file Sexual Orientation Not on file Occupation Industry Job Start Date Job End Date retired Not on file Not on file Not on file documented as of this encounter Last Filed Vital Signs Vital Sign Reading Time Taken Comments Blood Pressure 142/75 07/03/2016 3:22 PM HEALTH UNDERWRITER Pulse - - Temperature - - Respiratory Rate - - Oxygen Saturation - - Inhaled Oxygen Concentration - - Weight 64.5 kg (142 lb 2 oz) 07/03/2016 3:22 PM HEALTH UNDERWRITER Height 162.6 cm (5' 4) 07/03/2016 3:22 PM HEALTH UNDERWRITER Body Mass Index 24.4 07/03/2016 3:22 PM HEALTH UNDERWRITER documented in this encounter Functional Status * Are you deaf or do you have serious difficulty hearing? Answer Date of Assessment Author No 05/19/2016 12:00 AM HEALTH UNDERWRITER Antelmo Walker * Are you blind or do you have serious difficulty seeing, even when wearing glasses? Answer Date of Assessment Author No 04/24/2016 6:34 PM JOSET Demetrice Jimenez RN * Do you have serious difficulty walking or climbing stairs? Answer Date of Assessment Author No 04/24/2016 10:44 PM JOSET Racheal Iglesias, BIN * Do you have difficulty dressing or bathing? Answer Date of Assessment Author No 04/24/2016 10:44 PM Racheal Mon, BIN * Do you have difficulty doing errands alone such as visiting a doctor's office or shopping because of a physical, mental, or emotional condition? Answer Date of Assessment Author No 04/24/2016 10:44 PM Racheal Mon RN documented as of this encounter Mental Status * Do you have trouble concentrating, remembering, or making decisions because of a physical, mental, or emotional condition? Answer Entry Date Author No 04/24/2016 6:34 PM CDT Demetrice Jimenez RN documented in this encounter Plan of Treatment Not on file documented as of this encounter Visit Diagnoses Not on filedocumented in this encounter Additional Health Concerns Infection Onset Date Last Indicated Resolved Time COVID-19 Rule Out 04/07/2020 04/07/2020 04/07/2020 10:35 AM CDT COVID-19 Rule Out 04/08/2020 04/08/2020 04/08/2020 6:06 PM CDT COVID-19 Rule Out 04/21/2021 04/21/2021 04/21/2021 3:31 PM CDT documented as of this encounter Care Teams Hoseman Relationship Specialty Start Date End Date Yaneth Reyes MD PCP - General 01/12/07 03/07/20 Unknown, [place] [address] PCP - General 03/08/20 04/06/20 Provider, [place] [address] PCP - General 04/07/20 04/15/20 Yaneth Reyes MD [address] [place] [phone] PCP - General Family Medicine 04/16/20 [place], Subacute Unit [facility] [place] [address] 08/06/17 Yaneth Reyes MD [address] [place] [phone] 08/06/17 04/18/20 [place] [address] Family Medicine 04/10/20 04/18/20 documented as of this encounter Additional Source Comments PLEASE NOTE: Replies to this message will not be received.[facility] and [facility]
--- OUTSIDE RECORDS SUMMARY | 2024-09-10 17:15 | XMS_ITS | Encounter Summary ---
Author Organization [facility] Aff[facility]ates Address [address] [place] [address] Care Team Providers Care Balcony Worker Name Role Phone Yaneth Reyes MD Primary Care P rovider [place], Subacute Unit St. Unavailable [phone] Yaneth Reyes MD Unavailable Unknown, Provider Primary Care Provider Unavaila ble Provider, No Primary Primary Care Provider Unava ilable Yaneth Reyes MD Unavailable Yaneth Reyes MD Primary Care P rovider Encounter Details Date Type Department Care Team (Late st Contact Info) Description 11/14/2001 Scan [facility] [address] [place] [address] Unknown, Provider . [place] [address] Social History Tobacco Use Types Packs/Day Years Used Date Smoking Tobacco: Never Assessed Comments Unknown Sex and Gender Information Value Date Recorded Sex Assigned at Not on file Legal Sex Female 10:54 PM DIRECTOR OF MARKETING ANALYTICS Gender Identity Not on file Sexual Orientation Not on file documented as of this encounter Plan of Treatment Not on file documented as of this encounter Procedures Procedure Name Priority Date/Time Associated Diagnosis Comments PROCEDURE - S 11/14/2001 12:34 PM CDT documented in this encounter Results * PROCEDURE - S (11/14/2001 12:34 PM CDT) us Scan Linda PROCEDURE NOTE Final Result documented in this encounter Visit Diagnoses Not on filedocumented in this encounter Additional Health Concerns Infection Onset Date Last Indicated Resolved Time COVID-19 Rule Out 04/07/2020 04/07/2020 04/07/2020 10:35 AM CDT COVID-19 Rule Out 04/08/2020 04/08/2020 04/08/2020 6:06 PM CDT COVID-19 Rule Out 04/21/2021 04/21/2021 04/21/2021 3:31 PM CDT documented as of this encounter Care Teams Balcony Worker Relationship Specialty Start Date End Date Yaneth Reyes MD PCP - General 01/12/07 03/07/20 Unknown, Provider . [place] [address] PCP - General 03/08/20 04/06/20 Provider, [place] [address] PCP - General 04/07/20 04/15/20 Yaneth Reyes MD [address] [place] [phone] PCP - General Family Medicine 04/16/20 [place], Subacute Unit [address] [facility] [place] [address] 08/06/17 Yaneth Reyes MD [address] [place] [phone] 08/06/17 04/18/20 Yaneth Reyes MD . [place] [address] Family Medicine 04/10/20 04/18/20 documented as of this encounter Additional Source Comments PLEASE NOTE: Replies to this message will not be received.[facility] and [facility]"
--- OUTSIDE RECORDS SUMMARY | 2024-09-10 17:15 | XMS_ITS | Encounter Summary ---
Author Organization [facility] Address [address] [place] [address] Care Team Providers Care Basting Machine Operator Name Role Phone Yaneth Reyes MD Primary Care P rovider [place], Subacute Unit St. Unavailable Yaneth Reyes MD Unavailable Unknown, Provider Primary Care Provider Unavaila ble Provider, No Primary Primary Care Provider Unava ilable Yaneth Reyes MD Unavailable Yaneth Reyes MD Primary Care P rovider Encounter Details Date Type Department Care Team (Late st Contact Info) Description 10/12/2003 Scan [facility] [address] [place] [address] Social History Tobacco Use Types Packs/Day Years Used Date Smoking Tobacco: Never Assessed Comments Unknown Sex and Gender Information Value Date Recorded Sex Assigned at Not on file Legal Sex Female 10:54 PM SHIP'S MASTER Gender Identity Not on file Sexual Orientation Not on file documented as of this encounter Procedure Notes * GERMAN SCAN - 10/12/2003 10:34 AM CDTAssociated Order(s): ECG - S documented in this encounter Plan of Treatment Not on file documented as of this encounter Procedures Procedure Name Priority Date/Time Associated Diagnosis Comments EKG - S 10/12/2003 10:34 AM CDT documented in this encounter Results * ECG - S (10/12/2003 10:34 AM CDT) Narrative Procedure Note GERMAN SCAN - 10/12/2003 10:34 AM CDT us Scan [facility] ECG Final Result documented in this encounter Visit Diagnoses Not on filedocumented in this encounter Additional Health Concerns Infection Onset Date Last Indicated Resolved Time COVID-19 Rule Out 04/07/2020 04/07/2020 04/07/2020 10:35 AM CDT COVID-19 Rule Out 04/08/2020 04/08/2020 04/08/2020 6:06 PM CDT COVID-19 Rule Out 04/21/2021 04/21/2021 04/21/2021 3:31 PM CDT documented as of this encounter Care Teams Basting Machine Operator Relationship Specialty Start Date End Date Yaneth Reyes MD PCP - General 01/12/07 03/07/20 Unknown, Provider . [place] [address] PCP - General 03/08/20 04/06/20 Provider, No Primary . [place] [address] PCP - General 04/07/20 04/15/20 Yaneth Reyes MD [address] [place] [phone] PCP - General Family Medicine 04/16/20 Luis Fernando, [facility] [address] [place] [address] 08/06/17 Yaneth Reyes MD [address] [place] [phone] 08/06/17 04/18/20 Yaneth Reyes MD . [place] [address] Family Medicine 04/10/20 04/18/20 documented as of this encounter Additional Source Comments PLEASE NOTE: Replies to this message will not be received.[facility] and [facility]
--- OUTSIDE RECORDS SUMMARY | 2024-09-10 17:15 | XMS_ITS | Encounter Summary ---
Author Organization [facility] Address [address] [place] [address] Care Team Providers Care University Counselor Name Role Phone Yaneth Reyes MD Primary Care P rovider [place], Subacute Unit St. Unavailable Yaneth Reyes MD Unavailable Unknown, Provider Primary Care Provider Unavaila ble Provider, No Primary Primary Care Provider Unava ilable Yaneth Reyes MD Unavailable Yaneth Reyes MD Primary Care P rovider Encounter Details Date Type Department Care Team (Late st Contact Info) Description 11/14/[address] [facility] [address] [place] [address] Unknown, Provider . [place] [address] Social History Tobacco Use Types Packs/Day Years Used Date Smoking Tobacco: Never Assessed Comments Unknown Sex and Gender Information Value Date Recorded Sex Assigned at Not on file Legal Sex Female 10:54 PM MANAGER ACCESS Gender Identity Not on file Sexual Orientation Not on file documented as of this encounter Plan of Treatment Not on file documented as of this encounter Procedures Procedure Name Priority Date/Time Associated Diagnosis Comments REFERRAL - S 11/14/2001 8:46 AM CDT documented in this encounter Results * REFERRAL - S (11/14/2001 8:46 AM CDT) us Scan [facility] PROCEDURE NOTE Final [...] documented as of this encounter Care Teams University Counselor Relationship Specialty Start Date End Date Yaneth Reyes MD PCP - General 01/12/07 03/07/20 Unknown, Provider . [place] [address] PCP - General 03/08/20 04/06/20 Provider, [place] [address] PCP - General 04/07/20 04/15/20 Yaneth Reyes MD [address] [place] [phone] PCP - General Family Medicine 04/16/20 [place], Subacute Unit [address] [facility] [place] [address] 08/06/17 Yaneth Reyes MD [address] [place] [phone] 08/06/17 04/18/20 Yaneth Reyes MD . [place] [address] Family Medicine 04/10/20 04/18/20 documented as of this encounter Additional Source Comments PLEASE NOTE: Replies to this message will not be received.[facility] and [facility]
--- OUTSIDE RECORDS SUMMARY | 2024-09-10 17:15 | XMS_ITS | Encounter Summary ---
Author Organization [facility] Address [address] [place] [address] Care Team Providers Care Embosser Apprentice Name Role Phone Yaneth Reyes MD Primary Care P rovider [place], Subacute Unit St. Unavailable Yaneth Reyes MD Unavailable Unknown, Provider Primary Care Provider Unavaila ble Provider, No Primary Primary Care Provider Unava ilable Yaneth Reyes MD Unavailable Yaneth Reyes MD Primary Care P rovider Encounter Details Date Type Department Care Team (Late st Contact Info) Description 09/25/2001 [facility] [address] [place] [address] Unknown, Provider . [place] [address] Social History Tobacco Use Types Packs/Day Years Used Date Smoking Tobacco: Never Assessed Comments Unknown Sex and Gender Information Value Date Recorded Sex Assigned at Not on file Legal Sex Female 10:54 PM EAR SPECIALIST Gender Identity Not on file Sexual Orientation Not on file documented as of this encounter Plan of Treatment Not on file documented as of this encounter Procedures Procedure Name Priority Date/Time Associated Diagnosis Comments REFERRAL - S 09/25/2001 8:42 AM EAR SPECIALIST documented in this encounter Results * REFERRAL - S (09/25/2001 8:42 AM EAR SPECIALIST) us Scan Linda PROCEDURE NOTE Final Result documented in this encounter Visit Diagnoses Not on filedocumented in this encounter Additional Health Concerns Infection Onset Date Last Indicated Resolved Time COVID-19 Rule Out 04/07/2020 04/07/2020 04/07/2020 10:35 AM CDT COVID-19 Rule Out 04/08/2020 04/08/2020 04/08/2020 6:06 PM CDT COVID-19 Rule Out 04/21/2021 04/21/2021 04/21/2021 3:31 PM CDT documented as of this encounter Care Teams Embosser Apprentice Relationship Specialty Start Date End Date Yaneth Reyes MD PCP - General 01/12/07 03/07/20 Unknown, Provider . [place] [address] PCP - General 03/08/20 04/06/20 Provider, [place] [address] PCP - General 04/07/20 04/15/20 Yaneth Reyes MD [address] [place] [phone] PCP - General Family Medicine 04/16/20 [place], Subacute Unit [address] [place] [address] [place] [address] 08/06/17 Yaneth Reyes MD [address] [place] [address] 08/06/17 04/18/20 [place] [address] Family Medicine 04/10/20 04/18/20 documented as of this encounter Additional Source Comments PLEASE NOTE: Replies to this message will not be received.[facility] and [facility]
--- OUTSIDE RECORDS SUMMARY | 2024-09-10 17:15 | XMS_ITS | Encounter Summary ---
Author Organization [facility] Affiliates Address [address] [place] [address] Care Team Providers Care Wood Die Maker Name Role Phone Yaneth Reyes MD Primary Care P rovider [place], Subacute Unit St. Unavailable Yaneth Reyes MD Unavailable Unknown, Provider Primary Care Provider Unavaila ble Provider, No Primary Primary Care Provider Unava ilable Yaneth Reyes MD Unavailable Yaneth Reyes MD Primary Care P rovider Encounter Details Date Type Department Care Team (Late st Contact Info) Description 09/25/2001 [facility] [address] [place] [address] Unknown, Provider . [place] [address] Social History Tobacco Use Types Packs/Day Years Used Date Smoking Tobacco: Never Assessed Comments Unknown Sex and Gender Information Value Date Recorded Sex Assigned at Not on file Legal Sex Female 10:54 PM BILINGUAL TEACHER AIDE Gender Identity Not on file Sexual Orientation [...] documented as of this encounter Care Teams Wood Die Maker Relationship Specialty Start Date End Date Yaneth Reyes MD PCP - General 01/12/07 03/07/20 Unknown, Provider . [place] [address] PCP - General 03/08/20 04/06/20 Provider, No Primary . [place] [address] PCP - General 04/07/20 04/15/20 Yaneth Reyes MD [address] [facility] [place] [address] PCP - General Family Medicine 04/16/20 [place], Subacute Unit [address] [facility] [address] 08/06/17 Yaneth Reyes MD [address] [place] [phone] 08/06/17 04/18/20 [place] [address] Family Medicine 04/10/20 04/18/20 documented as of this encounter Additional Source Comments PLEASE NOTE: Replies to this message will not be received.[facility] and [facility]
--- OUTSIDE RECORDS SUMMARY | 2024-09-10 17:15 | XMS_ITS | Encounter Summary ---
Author Organization [facility] Address [address] [place] [address] Care Team Providers Care Filler Leaf Cutter Long Name Role Phone Yaneth Reyes MD Primary Care P rovider [place], Subacute Unit [facility]. Unavailable Yaneth Reyes MD Unavailable Unknown, Provider Primary Care Provider Unavaila ble Provider, No Primary Primary Care Provider Unava ilable Yaneth Reyes MD Unavailable Yaneth Reyes MD Primary Care P rovider Encounter Details Date Type Department Care Team (Late st Contact Info) Description 01/31/[address] [facility] [address] [place] [address] Unknown, Provider . [place] [address] Social History Tobacco Use Types Packs/Day Years Used Date Smoking Tobacco: Never Assessed Comments Unknown Sex and Gender Information Value Date Recorded Sex Assigned at Not on file Legal Sex Female 10:54 PM AIRDOX FITTER Gender Identity Not on file Sexual Orientation Not on file documented as of this encounter Plan of Treatment Not on file documented as of this encounter Procedures Procedure Name Priority Date/Time Associated Diagnosis Comments LABS - S 01/31/2005 6:32 AM CDT documented in this encounter Results * LABS - S (01/31/2005 6:32 AM CDT) us Scan Linda PROCEDURE NOTE [...] documented as of this encounter Care Teams Filler Leaf Cutter Long Relationship Specialty Start Date End Date Yaneth Reyes MD PCP - General 01/12/07 03/07/20 Unknown, Provider . [place] [address] PCP - General 03/08/20 04/06/20 Provider, [place] [address] PCP - General 04/07/20 04/15/20 Yaneth Reyes MD [address] [place] [id number] PCP - General Family Medicine 04/16/20 [place], [facility]acute [address] [facility] [address] 08/06/17 Yaneth Reyes MD [address] [place] [address] 08/06/17 04/18/20 Yaneth Reyes MD . [place] [address] Family Medicine 04/10/20 04/18/20 documented as of this encounter Additional Source Comments PLEASE NOTE: Replies to this message will not be received.[facility]
--- OUTSIDE RECORDS SUMMARY | 2024-09-10 17:15 | XMS_ITS | Encounter Summary ---
Author Organization [facility] Address [address] [place] [address] Care Team Providers Care Marketing Assistant Name Role Phone Yaneth Reyes MD Primary Care P rovider [place], Subacute Unit St. Unavailable [phone] Yaneth Reyes MD Unavailable Unknown, Provider Primary Care Provider Unavaila ble Provider, No Primary Primary Care Provider Unava ilable Yaneth Reyes MD Unavailable Yaneth Reyes MD Primary Care P rovider Encounter Details Date Type Department Care Team (Late st Contact Info) Description 09/25/2001 [facility] [address] [place] [address] Unknown, Provider . [place] [address] Social History Tobacco Use Types Packs/Day Years Used Date Smoking Tobacco: Never Assessed Comments Unknown Sex and Gender Information Value Date Recorded Sex Assigned at Not on file Legal Sex Female 10:54 PM TIMBER INCISOR OPERATOR Gender Identity Not on file Sexual Orientation Not on file documented as of this encounter Plan of Treatment Not on file documented as of this encounter Procedures Procedure Name Priority Date/Time Associated Diagnosis Comments PROCEDURE - S 09/25/2001 10:44 AM TIMBER INCISOR OPERATOR documented in this encounter Results * PROCEDURE - S (09/25/2001 10:44 AM TIMBER INCISOR OPERATOR) us Scan Linda PROCEDURE NOTE Final Result documented in this encounter Visit Diagnoses Not on filedocumented in this encounter Additional Health Concerns Infection Onset Date Last Indicated Resolved Time COVID-19 Rule Out 04/07/2020 04/07/2020 04/07/2020 10:35 AM CDT COVID-19 Rule Out 04/08/2020 04/08/2020 04/08/2020 6:06 PM CDT COVID-19 Rule Out 04/21/2021 04/21/2021 04/21/2021 3:31 PM CDT documented as of this encounter Care Teams Marketing Assistant Relationship Specialty Start Date End Date Yaneth Reyes MD PCP - General 01/12/07 03/07/20 Unknown, Provider . [place] [address] PCP - General 03/08/20 04/06/20 Provider, [place] [address] PCP - General 04/07/20 04/15/20 Yaneth Reyes MD [address] [place] [id number] PCP - General Family Medicine 04/16/20 [place], Subacute Unit [address] [place] [address] [place] [address] 08/06/17 Yaneth Reyes MD [address] [place] [address] 08/06/17 04/18/20 [place] [address] Family Medicine 04/10/20 04/18/20 documented as of this encounter Additional Source Comments PLEASE NOTE: Replies to this message will not be received.[facility] and [facility]
--- OUTSIDE RECORDS SUMMARY | 2024-09-10 17:15 | XMS_ITS | Encounter Summary ---
Author Organization [facility] Address [address] [place] [address] Care Team Providers Care Diploma Dental Assistant Name Role Phone Yaneth Reyes MD Primary Care P rovider [place], Subacute Unit St. Unavailable Yaneth Reyes MD Unavailable Unknown, Provider Primary Care Provider Unavaila ble Provider, No Primary Primary Care Provider Unava ilable Yaneth Reyes MD Unavailable Yaneth Reyes MD Primary Care P rovider Encounter Details Date Type Department Care Team (Late st Contact Info) Description 11/11/2001 Scan [facility] [address] [place] [address] Unknown, Provider . [place] [address] Social History Tobacco Use Types Packs/Day Years Used Date Smoking Tobacco: Never Assessed Comments Unknown Sex and Gender Information Value Date Recorded Sex Assigned at Not on file Legal Sex Female 10:54 PM BRUSH WASHER Gender Identity Not on file Sexual Orientation Not on file documented as of this encounter Plan of Treatment Not on file documented as of this encounter Procedures Procedure Name Priority Date/Time Associated Diagnosis Comments REFERRAL - S 11/11/2001 7:08 AM CDT documented in this encounter Results * REFERRAL - S (11/11/2001 7:08 AM CDT) us Scan Linda PROCEDURE NOTE [...] documented as of this encounter Care Teams Diploma Dental Assistant Relationship Specialty Start Date End Date Yaneth Reyes MD PCP - General 01/12/07 03/07/20 Unknown, Provider . [place] [address] PCP - General 03/08/20 04/06/20 Provider, No Primary . [place] [address] PCP - General 04/07/20 04/15/20 Yaneth Reyes MD [address] [place] [phone] PCP - General Family Medicine 04/16/20 [place], Subacute [address] [place] [address] 08/06/17 Yaneth Reyes MD [address] [place] [id number] 08/06/17 04/18/20 Yaneth Reyes MD . [place] [address] Family Medicine 04/10/20 04/18/20 documented as of this encounter Additional Source Comments PLEASE NOTE: Replies to this message will not be received.[facility]
--- OUTSIDE RECORDS SUMMARY | 2024-09-10 17:15 | XMS_ITS | Encounter Summary ---
Author Organization [facility] Aff[facility] Address [address] [place] [address] Care Team Providers Care Custom Shoe Designer And Maker Name Role Phone Yaneth Reyes MD Primary Care P rovider [place], Subacute Unit St. Unavailable [phone] Yaneth Reyes MD Unavailable Unknown, Provider Primary Care Provider Unavaila ble Provider, No Primary Primary Care Provider Unava ilable Yaneth Reyes MD Unavailable Yaneth Reyes MD Primary Care P rovider Encounter Details Date Type Department Care Team (Late st Contact Info) Description 09/20/2001 [facility] [address] [place] [address] Unknown, Provider . [place] [address] Social History Tobacco Use Types Packs/Day Years Used Date Smoking Tobacco: Never Assessed Comments Unknown Sex and Gender Information Value Date Recorded Sex Assigned at Not on file Legal Sex Female 10:54 PM POLE FRAMER Gender Identity Not on file Sexual Orientation Not on file documented as of this encounter Plan of Treatment Not on file documented as of this encounter Procedures Procedure Name Priority Date/Time Associated Diagnosis Comments REFERRAL - S 09/20/2001 7:49 AM POLE FRAMER documented in this encounter Results * REFERRAL - S (09/20/2001 7:49 AM POLE FRAMER) us Scan Linda PROCEDURE NOTE Final Result documented in this encounter Visit Diagnoses Not on filedocumented in this encounter Additional Health Concerns Infection Onset Date Last Indicated Resolved Time COVID-19 Rule Out 04/07/2020 04/07/2020 04/07/2020 10:35 AM CDT COVID-19 Rule Out 04/08/2020 04/08/2020 04/08/2020 6:06 PM CDT COVID-19 Rule Out 04/21/2021 04/21/2021 04/21/2021 3:31 PM CDT documented as of this encounter Care Teams Custom Shoe Designer And Maker Relationship Specialty Start Date End Date Yaneth Reyes MD PCP - General 01/12/07 03/07/20 Unknown, [place] [address] PCP - General 03/08/20 04/06/20 Provider, [place] [address] PCP - General 04/07/20 04/15/20 Yaneth Reyes MD [address] [place] [id number] PCP - General Family Medicine 04/16/20 [place], Subacute Unit [address] [place] [address] [place] [address] 08/06/17 Yaneth Reyes MD [address] [place] [address] 08/06/17 04/18/20 [place] [address] Family Medicine 04/10/20 04/18/20 documented as of this encounter Additional Source Comments PLEASE NOTE: Replies to this message will not be received.[facility] and [facility]
--- OUTSIDE RECORDS SUMMARY | 2024-09-10 17:15 | XMS_ITS | Encounter Summary ---
Author Organization [facility] Aff[facility]ates Address [address] [place] [address] Care Team Providers Care Faculty Support Coordinator Name Role Phone Yaneth Reyes MD Primary Care P rovider [place], Subacute Unit St. Unavailable [phone] Yaneth Reyes MD Unavailable Unknown, Provider Primary Care Provider Unavaila ble Provider, No Primary Primary Care Provider Unava ilable Yaneth Reyes MD Unavailable Yaneth Reyes MD Primary Care P rovider Encounter Details Date Type Department Care Team (Late st Contact Info) Description 05/18/[address] [facility] [address] [place] [address] Social History Tobacco Use Types Packs/Day Years Used Date Smoking Tobacco: Never Assessed Comments Unknown Sex and Gender Information Value Date Recorded Sex Assigned at Not on file Legal Sex Female 10:54 PM INVESTMENT BROKER Gender Identity Not on file Sexual Orientation Not on file documented as of this encounter Procedure Notes * LINDA, SCAN - 05/18/1977 4:54 PM CSTAssociated Order(s): RADIOLOGY - S STMENT BROKER documented in this encounter Plan of Treatment Not on file documented as of this encounter Procedures Procedure Name Priority Date/Time Associated Diagnosis Comments RADIOLOGY - S 05/18/1977 4:54 PM INVESTMENT BROKER documented in this encounter Results * RADIOLOGY - S (05/18/1977 4:54 PM INVESTMENT BROKER) Anatomical Region Laterality Modality Other Narrative Procedure Note LINDA, SCAN - 05/18/1977 4:54 PM CST us Scan Linda PROCEDURE NOTE Final Result documented in this encounter Visit Diagnoses Not on filedocumented in this encounter Additional Health Concerns Infection Onset Date Last Indicated Resolved Time COVID-19 Rule Out 04/07/2020 04/07/2020 04/07/2020 10:35 AM CDT COVID-19 Rule Out 04/08/2020 04/08/2020 04/08/2020 6:06 PM CDT COVID-19 Rule Out 04/21/2021 04/21/2021 04/21/2021 3:31 PM CDT documented as of this encounter Care Teams Faculty Support Coordinator Relationship Specialty Start Date End Date Yaneth Reyes MD PCP - General 01/12/07 03/07/20 Unknown, Provider . [place] [address] PCP - General 03/08/20 04/06/20 Provider, No Primary . [place] [address] PCP - General 04/07/20 04/15/20 Yaneth Reyes MD [address] [place] [address] PCP - General Family Medicine 04/16/20 [place], [facility] [address] [place] [address] 08/06/17 Yaneth Reyes MD [address] [place] [address] 08/06/17 04/18/20 Yaneth Reyes MD . [place] [address] Family Medicine 04/10/20 04/18/20 documented as of this encounter Additional Source Comments PLEASE NOTE: Replies to this message will not be received.[facility]
--- OUTSIDE RECORDS SUMMARY | 2024-09-10 17:15 | XMS_ITS | Encounter Summary ---
Author Organization [facility] Aff[facility]ates Address [address] [place] [address] Care Team Providers Care Department Head Junior College Name Role Phone Yaneth Reyes MD Primary Care P rovider [place], Subacute Unit St. Unavailable Yaneth Reyes MD Unavailable Unknown, Provider Primary Care Provider Unavaila ble Provider, No Primary Primary Care Provider Unava ilable Yaneth Reyes MD Unavailable Yaneth Reyes MD Primary Care P rovider Encounter Details Date Type Department Care Team (Late st Contact Info) Description 09/30/[address] [facility] [address] [place] [address] Unknown, Provider . [place] [address] Social History Tobacco Use Types Packs/Day Years Used Date Smoking Tobacco: Never Assessed Comments Unknown Sex and Gender Information Value Date Recorded Sex Assigned at Not on file Legal Sex Female 10:54 PM GEARMAN Gender Identity Not on file Sexual Orientation [...] documented as of this encounter Care Teams Department Head [employer] Relationship Specialty Start Date End Date Yaneth Reyes MD PCP - General 01/12/07 03/07/20 Unknown, Provider . [place] [address] PCP - General 03/08/20 04/06/20 Provider, No Primary . [place] [address] PCP - General 04/07/20 04/15/20 Yaneth Reyes MD [address] [facility] [place] [address] PCP - General Family Medicine 04/16/20 [place], Subacute Unit [address] [place] [address] 08/06/17 Yaneth Reyes MD [address] [place] [address] 08/06/17 04/18/20 [place] [address] Family Medicine 04/10/20 04/18/20 documented as of this encounter Additional Source Comments PLEASE NOTE: Replies to this message will not be received.[facility] and [facility]
--- OUTSIDE RECORDS SUMMARY | 2024-09-10 17:15 | XMS_ITS | Encounter Summary ---
Author Organization [facility] Affiliates Address [address] [place] [address] Care Team Providers Care Event Marketing Assistant Name Role Phone Yaneth Reyes MD Primary Care P rovider [place], Subacute Unit St. Unavailable Yaneth Reyes MD Unavailable Unknown, Provider Primary Care Provider Unavaila ble Provider, No Primary Primary Care Provider Unava ilable Yaneth Reyes MD Unavailable Yaneth Reyes MD Primary Care P rovider Encounter Details Date Type Department Care Team (Late st Contact Info) Description 02/19/1974 Scan [facility] [address] [place] [address] Unknown, 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 Gender Identity Not on file Sexual Orientation Not on file documented as of this encounter Procedure Notes * LINDA, SCAN - 11/28/1974 4:54 PM CDTAssociated Order(s): RADIOLOGY - S METRY MONITOR * LINDA, SCAN - 09/30/1974 4:54 PM CDTAssociated Order(s): RADIOLOGY - S METRY MONITOR * LINDA SCAN - 02/21/1974 4:54 PM CDTAssociated Order(s): RADIOLOGY - S METRY MONITOR * LINDA SCAN - 02/20/1974 4:54 PM CDTAssociated Order(s): RADIOLOGY - S METRY MONITOR * Unknown, Provider, - 02/19/1974 4:54 PM CDT METRY MONITOR * LINDA SCAN - 02/19/1974 4:54 PM CDTAssociated Order(s): PATHOLOGY REPORT - S METRY MONITOR * LINDA, SCAN - 02/18/1974 4:54 PM CDTAssociated Order(s): RADIOLOGY - S METRY MONITOR documented in this encounter Plan of Treatment Not on file documented as of this encounter Procedures Procedure Name Priority Date/Time Associated Diagnosis Comments RADIOLOGY - S 11/28/1974 4:54 PM CDT RADIOLOGY - S 09/30/1974 4:54 PM CDT RADIOLOGY - S 02/21/1974 4:54 PM CDT RADIOLOGY - S 02/20/1974 4:54 PM CDT PATHOLOGY REPORT - S 02/19/1974 4:54 PM CDT RADIOLOGY - S 02/18/1974 4:54 PM CDT documented in this encounter Results * RADIOLOGY - S (11/28/1974 4:54 PM CDT) Anatomical Region Laterality Modality Other Narrative Procedure Note LINDA, SCAN - 11/28/1974 4:54 PM CDT us Scan Linda PROCEDURE NOTE Final Result * RADIOLOGY - S (09/30/1974 4:54 PM CDT) Anatomical Region Laterality Modality Other Narrative Procedure Note LINDA, SCAN - 09/30/1974 4:54 PM CDT us Scan Linda PROCEDURE NOTE Final Result * RADIOLOGY - S (02/21/1974 4:54 PM CDT) Anatomical Region Laterality Modality Other Narrative Procedure Note LINDA, SCAN - 02/21/1974 4:54 PM CDT us Scan Linda PROCEDURE NOTE Final Result * RADIOLOGY - S (02/20/1974 4:54 PM CDT) Anatomical Region Laterality Modality Other Narrative Procedure Note LINDA, SCAN - 02/20/1974 4:54 PM CDT us Scan Linda PROCEDURE NOTE Final Result * PATHOLOGY REPORT - S (02/19/1974 4:54 PM CDT) Narrative Procedure Note LINDA, SCAN - 02/19/1974 4:54 PM CDT us Scan Linda PROCEDURE NOTE Final Result * RADIOLOGY - S (02/18/1974 4:54 PM CDT) Anatomical Region Laterality Modality Other Narrative Procedure Note LINDA, SCAN - 02/18/1974 4:54 PM CDT us Scan Linda PROCEDURE NOTE Final Result documented in this encounter Visit Diagnoses Not on filedocumented in this encounter Additional Health Concerns Infection Onset Date Last Indicated Resolved Time COVID-19 Rule Out 04/07/2020 04/07/2020 04/07/2020 10:35 AM CDT COVID-19 Rule Out 04/08/2020 04/08/2020 04/08/2020 6:06 PM CDT COVID-19 Rule Out 04/21/2021 04/21/2021 04/21/2021 3:31 PM CDT documented as of this encounter Care Teams Event Marketing Assistant Relationship Specialty Start Date End Date Yaneth Reyes MD PCP - General 01/12/07 03/07/20 Unknown, [place] [address] PCP - General 03/08/20 04/06/20 Provider, [place] [address] PCP - General 04/07/20 04/15/20 Yaneth Reyes MD [address] [place] [id number] PCP - General Family Medicine 04/16/20 [place], Subacute Unit [address] [facility] [place] [address] 08/06/17 Yaneth Reyes MD [address] [place] [address] 08/06/17 04/18/20 Yaneth Reyes MD . [place] [address] Family Medicine 04/10/20 04/18/20 documented as of this encounter Additional Source Comments PLEASE NOTE: Replies to this message will not be received.[facility]
--- OUTSIDE RECORDS SUMMARY | 2024-09-10 17:15 | XMS_ITS | Encounter Summary ---
Author Organization [facility] Address [address] [place] [address] Care Team Providers Care Director Advanced Name Role Phone Yaneth Reyes MD Primary Care P rovider [place], Subacute Unit St. Unavailable Yaneth Reyes MD Unavailable Unknown, Provider Primary Care Provider Unavaila ble Provider, No Primary Primary Care Provider Unava ilable Yaneth Reyes MD Unavailable Yaneth Reyes MD Primary Care P rovider Encounter Details Date Type Department Care Team (Late st Contact Info) Description 11/14/[address] [facility] [address] [place] [address] Unknown, Provider . 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 [place] [address] PCP - General 03/08/20 04/06/20 Provider, No Primary . [place] [address] PCP - General 04/07/20 04/15/20 Yaneth Reyes MD [address] [facility] [place] [address] PCP - General Family Medicine 04/16/20 [place], Subacute Unit [address] [facility] [place] [address] 08/06/17 Yaneth Reyes MD [address] [place] [address] 08/06/17 04/18/20 [place] [address] Family Medicine 04/10/20 04/18/20 documented as of this encounter Additional Source Comments PLEASE NOTE: Replies to this message will not be received.[facility] and [facility]
--- OUTSIDE RECORDS SUMMARY | 2024-09-10 17:15 | XMS_ITS | Encounter Summary ---
Author Organization [facility] Aff[facility] Address [address] [place] [address] Care Team Providers Care Parallel Computing Software Engineer Name Role Phone Yaneth Reyes MD Primary Care P rovider [place], Subacute Unit St. Unavailable Yaneth Reyes MD Unavailable Unknown, Provider Primary Care Provider Unavaila ble Provider, No Primary Primary Care Provider Unava ilable Yaneth Reyes MD Unavailable Yaneth Reyes MD Primary Care P rovider Encounter Details Date Type Department Care Team (Late st Contact Info) Description 10/15/2003 Scan [facility] [address] [place] [address] Unknown, Provider . [place] [address] Social History Tobacco Use Types Packs/Day Years Used Date Smoking Tobacco: Never Assessed Comments Unknown Sex and Gender Information Value Date Recorded Sex Assigned at Not on file Legal Sex Female 10:54 PM HORN PLAYER Gender Identity Not on file Sexual Orientation Not on file documented as of this encounter Plan of Treatment Not on file documented as of this encounter Procedures Procedure Name Priority Date/Time Associated Diagnosis Comments STRESS TEST TRACINGS - S 10/15/2003 5:49 AM CDT documented in this encounter Results * STRESS TEST TRACINGS - S (10/15/2003 5:49 AM CDT) Anatomical Region Laterality Modality Other us Scan Linda PROCEDURE NOTE Final Result documented in this encounter Visit Diagnoses Not on filedocumented in this encounter Additional Health Concerns Infection Onset Date Last Indicated Resolved Time COVID-19 Rule Out 04/07/2020 04/07/2020 04/07/2020 10:35 AM CDT COVID-19 Rule Out 04/08/2020 04/08/2020 04/08/2020 6:06 PM CDT COVID-19 Rule Out 04/21/2021 04/21/2021 04/21/2021 3:31 PM CDT documented as of this encounter Care Teams Parallel Computing Software Engineer Relationship Specialty Start Date End Date Yaneth Reyes MD PCP - General 01/12/07 03/07/20 Unknown, Provider . [place] [address] PCP - General 03/08/20 04/06/20 Provider, No Primary . [place] [address] PCP - General 04/07/20 04/15/20 Yaneth Reyes MD [address] [place] [id number] PCP - General Family Medicine 04/16/20 [place], Subacute Unit [address] [facility] [place] [address] 08/06/17 Yaneth Reyes MD [address] [place] [address] 08/06/17 04/18/20 Yaneth Reyes MD . [facility] [place] [address] Family Medicine 04/10/20 04/18/20 documented as of this encounter Additional Source Comments PLEASE NOTE: Replies to this message will not be received.[facility] and [facility]
--- OUTSIDE RECORDS SUMMARY | 2024-09-10 17:15 | XMS_ITS | Encounter Summary ---
Author Organization [facility] Affiliates Address [address] [place] [address] Care Team Providers Care Embroidery Designer Name Role Phone Yaneth Reyes MD Primary Care P rovider [place], Subacute Unit St. Unavailable Yaneth Reyes MD Unavailable Unknown, Provider Primary Care Provider Unavaila ble Provider, No Primary Primary Care Provider Unava ilable Yaneth Reyes MD Unavailable Yaneth Reyes MD Primary Care P rovider Encounter Details Date Type Department Care Team (Late st Contact Info) Description 11/17/2004 Scan [facility] [address] [place] [address] Unknown, Provider . [place] [address] Social History Tobacco Use Types Packs/Day Years Used Date Smoking Tobacco: Never Assessed Comments Unknown Sex and Gender Information Value Date Recorded Sex Assigned at Not on file Legal Sex Female 10:54 PM SITE COORDINATOR Gender Identity Not on file Sexual Orientation Not on file documented as of this encounter Plan of Treatment Not on file documented as of this encounter Procedures Procedure Name Priority Date/Time Associated Diagnosis Comments EKG - S 11/17/2004 1:30 PM CDT documented in this encounter Results * ECG - S (11/17/2004 1:30 PM CDT) us Scan Linda ECG Final Result documented in this encounter Visit Diagnoses Not on filedocumented in this encounter Additional Health Concerns Infection Onset Date Last Indicated Resolved Time COVID-19 Rule Out 04/07/2020 04/07/2020 04/07/2020 10:35 AM CDT COVID-19 Rule Out 04/08/2020 04/08/2020 04/08/2020 6:06 PM CDT COVID-19 Rule Out 04/21/2021 04/21/2021 04/21/2021 3:31 PM CDT documented as of this encounter Care Teams Embroidery Designer Relationship Specialty Start Date End Date Yaneth Reyes MD PCP - General 01/12/07 03/07/20 Unknown, [place] [address] PCP - General 03/08/20 04/06/20 Provider, [place] [address] PCP - General 04/07/20 04/15/20 Yaneth Reyes MD [address] [place] [id number] PCP - General Family Medicine 04/16/20 [place], Subacute [address] [facility] [place] [address] 08/06/17 Yaneth Reyes MD [address] [place] [id number] 08/06/17 04/18/20 Yaneth Reyes MD . [place] [address] Family Medicine 04/10/20 04/18/20 documented as of this encounter Additional Source Comments PLEASE NOTE: Replies to this message will not be received.[facility] and [facility]
--- OUTSIDE RECORDS SUMMARY | 2024-09-10 17:15 | XMS_ITS | Encounter Summary ---
Author Organization [facility] Affiliates Address [address] [place] [address] Care Team Providers Care Supervising Bailiff Name Role Phone Yaneth Reyes MD Primary Care P rovider [place], Subacute Unit St. Unavailable Yaneth Reyes MD Unavailable Unknown, Provider Primary Care Provider Unavaila ble Provider, No Primary Primary Care Provider Unava ilable Yaneth Reyes MD Unavailable Yaneth Reyes MD Primary Care P rovider Encounter Details Date Type Department Care Team (Late st Contact Info) Description 01/29/2005 Scan [facility] [address] [place] [address] Unknown, Provider . [place] [address] Social History Tobacco Use Types Packs/Day Years Used Date Smoking Tobacco: Never Assessed Comments Unknown Sex and Gender Information Value Date Recorded Sex Assigned at Not on file Legal Sex Female 10:54 PM HAND LEATHER TRIMMER Gender Identity Not on file Sexual Orientation Not on file documented as of this encounter Plan of Treatment Not on file documented as of this encounter Procedures Procedure Name Priority Date/Time Associated Diagnosis Comments LABS - S 01/29/2005 1:27 PM CDT documented in this encounter Results * LABS - S (01/29/2005 1:27 PM CDT) us Scan Linda PROCEDURE NOTE [...] documented as of this encounter Care Teams Supervising Bailiff Relationship Specialty Start Date End Date Yaneth Reyes MD PCP - General 01/12/07 03/07/20 Unknown, Provider . [place] [address] PCP - General 03/08/20 04/06/20 Provider, No Primary . [place] [address] PCP - General 04/07/20 04/15/20 Yaneth Reyes MD [address] [place] [id number] PCP - General Family Medicine 04/16/20 [place], Subacute Unit [address] [place] [address] 08/06/17 Yaneth Reyes MD [address] [place] [id number] 08/06/17 04/18/20 Yaneth Reyes MD . [place] [address] Family Medicine 04/10/20 04/18/20 documented as of this encounter Additional Source Comments PLEASE NOTE: Replies to this message will not be received.[facility] and [facility]
--- OUTSIDE RECORDS SUMMARY | 2024-09-10 17:15 | XMS_ITS | Encounter Summary ---
Author Organization [facility] Aff[facility]ates Address [address] [place] [address] Care Team Providers Care Bed Manager Name Role Phone Yaneth Reyes MD Primary Care P rovider [place], Subacute Unit St. Unavailable Yaneth Reyes MD Unavailable Unknown, Provider Primary Care Provider Unavaila ble Provider, No Primary Primary Care Provider Unava ilable Yaneth Reyes MD Unavailable Yaneth Reyes MD Primary Care P rovider Encounter Details Date Type Department Care Team (Late st Contact Info) Description 12/11/1983 Scan [facility] [address] [place] [address] Unknown, [place] [address] Social History Tobacco Use Types Packs/Day Years Used Date Smoking Tobacco: Never Assessed Comments Unknown Sex and Gender Information Value Date Recorded Sex Assigned at Not on file Legal Sex Female 10:54 PM FARM ASSISTANT Gender Identity Not on file Sexual Orientation Not on file documented as of this encounter Procedure Notes * LINDA, SCAN - 11/20/1984 4:54 PM CDTAssociated Order(s): RADIOLOGY - S ASSISTANT * LINDA, SCAN - 12/12/1983 4:54 PM CDTAssociated Order(s): RADIOLOGY - S ASSISTANT * Unknown, Provider, - 12/11/1983 4:54 PM CDT ASSISTANT * LINDA, SCAN - 11/16/1983 4:54 PM CDTAssociated Order(s): RADIOLOGY - S ASSISTANT documented in this encounter Plan of Treatment Not on file documented as of this encounter Procedures Procedure Name Priority Date/Time Associated Diagnosis Comments RADIOLOGY - S 11/20/1984 4:54 PM CDT RADIOLOGY - S 12/12/1983 4:54 PM CDT RADIOLOGY - S 11/16/1983 4:54 PM CDT documented in this encounter Results * RADIOLOGY - S (11/20/1984 4:54 PM CDT) Anatomical Region Laterality Modality Other Narrative Procedure Note LINDA, SCAN - 11/20/1984 4:54 PM CDT us Scan Linda PROCEDURE NOTE Final Result * RADIOLOGY - S (12/12/1983 4:54 PM CDT) Anatomical Region Laterality Modality Other Narrative Procedure Note LINDA, SCAN - 12/12/1983 4:54 PM CDT us Scan Linda PROCEDURE NOTE Final Result * RADIOLOGY - S (11/16/1983 4:54 PM CDT) Anatomical Region Laterality Modality Other Narrative Procedure Note LINDA, SCAN - 11/16/1983 4:54 PM CDT us Scan Linda PROCEDURE [...] documented as of this encounter Care Teams Bed Manager Relationship Specialty Start Date End Date Yaneth Reyes MD PCP - General 01/12/07 03/07/20 Unknown, [place] [address] PCP - General 03/08/20 04/06/20 Provider, [place] [address] PCP - General 04/07/20 04/15/20 Yaneth Reyes MD [address] [place] [id number] PCP - General Family Medicine 04/16/20 [place], Subacute Unit [address] [facility] [place] [address] 08/06/17 Yaneth Reyes MD [address] [place] [id number] 08/06/17 04/18/20 Yaneth Reyes MD . [place] [address] Family Medicine 04/10/20 04/18/20 documented as of this encounter Additional Source Comments PLEASE NOTE: Replies to this message will not be received.[facility] and [facility]
--- OUTSIDE RECORDS SUMMARY | 2024-09-10 17:17 | XMS_ITS | Encounter Summary ---
Author Organization [facility] Affiliates Address [address] [place] [address] Care Team Providers Care Pulmonary Physical Therapist Name Role Phone Yaneth Reyes MD Primary Care P rovider [place], Subacute Unit St. Unavailable Yaneth Reyes MD Unavailable Unknown, Provider Primary Care Provider Unavaila ble Provider, No Primary Primary Care Provider Unava ilable Yaneth Reyes MD Unavailable Yaneth Reyes MD Primary Care P rovider Encounter Details Date Type Department Care Team (Late st Contact Info) Description 02/11/1988 Scan [facility] [address] [place] [address] Social History Tobacco Use Types Packs/Day Years Used Date Smoking Tobacco: Never Assessed Comments Unknown Sex and Gender Information Value Date Recorded Sex Assigned at Not on file Legal Sex Female 10:54 PM SKIN CARVER Gender Identity Not on file Sexual Orientation Not on file documented as of this encounter Procedure Notes * LINDA, SCAN - 02/11/1988 4:54 PM CDTAssociated Order(s): RADIOLOGY - S CARVER documented in this encounter Plan of Treatment Not on file documented as of this encounter Procedures Procedure Name Priority Date/Time Associated Diagnosis Comments RADIOLOGY - S 02/11/1988 4:54 PM CDT documented in this encounter Results * RADIOLOGY - S (02/11/1988 4:54 PM CDT) Anatomical Region Laterality Modality Other Narrative Procedure Note LINDA, SCAN - 02/11/1988 4:54 PM CDT us Scan Linda PROCEDURE [...] documented as of this encounter Care Teams Pulmonary Physical Therapist Relationship Specialty Start Date End Date Yaneth Reyes MD PCP - General 01/12/07 03/07/20 Unknown, Provider . [place] [address] PCP - General 03/08/20 04/06/20 Provider, No Primary . [place] [address] PCP - General 04/07/20 04/15/20 Yaneth Reyes MD [address] [place] [id number] PCP - General Family Medicine 04/16/20 [place], [facility] [address] [place] [address] 08/06/17 Yaneth Reyes MD [address] [place] [id number] 08/06/17 04/18/20 [place] [address] Family Medicine 04/10/20 04/18/20 documented as of this encounter Additional Source Comments PLEASE NOTE: Replies to this message will not be received.[facility] and [facility]
--- OUTSIDE RECORDS SUMMARY | 2024-09-10 17:17 | XMS_ITS | Encounter Summary ---
Author Organization [facility] Affiliates Address [address] [place] [address] Care Team Providers Care Manager Transfusion Name Role Phone Yaneth Reyes MD Primary Care P rovider [place], Subacute Unit St. Unavailable Yaneth Reyes MD Unavailable Unknown, Provider Primary Care Provider Unavaila ble Provider, No Primary Primary Care Provider Unava ilable Yaneth Reyes MD Unavailable Yaneth Reyes MD Primary Care P rovider Encounter Details Date Type Department Care Team (Late st Contact Info) Description 10/25/1985 Scan [facility] [address] [place] [address] Social History Tobacco Use Types Packs/Day Years Used Date Smoking Tobacco: Never Assessed Comments Unknown Sex and Gender Information Value Date Recorded Sex Assigned at Not on file Legal Sex Female 10:54 PM CONVENIENCE STORE CLERK Gender Identity Not on file Sexual Orientation Not on file documented as of this encounter Procedure Notes * LINDA, SCAN - 10/25/1985 4:54 PM CSTAssociated Order(s): RADIOLOGY - S ENIENCE STORE CLERK documented in this encounter Plan of Treatment Not on file documented as of this encounter Procedures Procedure Name Priority Date/Time Associated Diagnosis Comments RADIOLOGY - S 10/25/1985 4:54 PM CONVENIENCE STORE CLERK documented in this encounter Results * RADIOLOGY - S (10/25/1985 4:54 PM CONVENIENCE STORE CLERK) Anatomical Region Laterality Modality Other Narrative Procedure Note LINDA, SCAN - 10/25/1985 4:54 PM CST us Scan Linda PROCEDURE [...] documented as of this encounter Care Teams Manager Transfusion Relationship Specialty Start Date End Date Yaneth Reyes MD PCP - General 01/12/07 03/07/20 Unknown, Provider . [place] [address] PCP - General 03/08/20 04/06/20 Provider, No Primary . [place] [address] PCP - General 04/07/20 04/15/20 Yaneth Reyes MD [address] [facility] [place] [id number] PCP - General Family Medicine 04/16/20 [place], [facility] [address] [place] [address] 08/06/17 Yaneth Reyes MD [address] [facility] [place] [id number] 08/06/17 04/18/20 Yaneth Reyes MD . [place] [address] Family Medicine 04/10/20 04/18/20 documented as of this encounter Additional Source Comments PLEASE NOTE: Replies to this message will not be received.[facility] and [facility]
--- OUTSIDE RECORDS SUMMARY | 2024-09-10 17:17 | XMS_ITS | Encounter Summary ---
Author Organization [facility] Aff[facility] Address [address] [place] [address] Care Team Providers Care Histotechnologist Name Role Phone Yaneth Reyes MD Primary Care P rovider [place], Subacute Unit St. Unavailable Yaneth Reyes MD Unavailable Unknown, Provider Primary Care Provider Unavaila ble Provider, No Primary Primary Care Provider Unava ilable Yaneth Reyes MD Unavailable Yaneth Reyes MD Primary Care P rovider Encounter Details Date Type Department Care Team (Late st Contact Info) Description 10/13/1988 Scan [facility] [address] [place] [address] Social History Tobacco Use Types Packs/Day Years Used Date Smoking Tobacco: Never Assessed Comments Unknown Sex and Gender Information Value Date Recorded Sex Assigned at Not on file Legal Sex Female 10:54 PM CREDENTIALING SPECIALIST Gender Identity Not on file Sexual Orientation Not on file documented as of this encounter Procedure Notes * LINDA, SCAN - 07/04/1989 4:54 PM CSTAssociated Order(s): RADIOLOGY - S ENTIALING SPECIALIST * LINDA, SCAN - 10/13/1988 4:54 PM CDTAssociated Order(s): PATHOLOGY REPORT - S ENTIALING SPECIALIST * LINDA, SCAN - 10/13/1988 4:54 PM CDTAssociated Order(s): RADIOLOGY - S ENTIALING SPECIALIST * LINDA, SCAN - 09/15/1988 4:54 PM CSTAssociated Order(s): RADIOLOGY - S ENTIALING SPECIALIST documented in this encounter Plan of Treatment Not on file documented as of this encounter Procedures Procedure Name Priority Date/Time Associated Diagnosis Comments RADIOLOGY - S 07/04/1989 4:54 PM CREDENTIALING SPECIALIST RADIOLOGY - S 10/13/1988 4:54 PM CDT PATHOLOGY REPORT - S 10/13/1988 4:54 PM CDT RADIOLOGY - S 09/15/1988 4:54 PM CREDENTIALING SPECIALIST documented in this encounter Results * RADIOLOGY - S (07/04/1989 4:54 PM CREDENTIALING SPECIALIST) Anatomical Region Laterality Modality Other Narrative Procedure Note LINDA, SCAN - 07/04/1989 4:54 PM CST us Scan Linda PROCEDURE NOTE Final Result * PATHOLOGY REPORT - S (10/13/1988 4:54 PM CDT) Narrative Procedure Note LINDA, SCAN - 10/13/1988 4:54 PM CDT us Scan Linda PROCEDURE NOTE Final Result * RADIOLOGY - S (10/13/1988 4:54 PM CDT) Anatomical Region Laterality Modality Other Narrative Procedure Note LINDA, SCAN - 10/13/1988 4:54 PM CDT us Scan Linda PROCEDURE NOTE Final Result * RADIOLOGY - S (09/15/1988 4:54 PM CREDENTIALING SPECIALIST) Anatomical Region Laterality Modality Other Narrative Procedure Note LINDA, SCAN - 09/15/1988 4:54 PM CST us Scan Linda PROCEDURE [...] documented as of this encounter Care Teams Histotechnologist Relationship Specialty Start Date End Date Yaneth Reyes MD PCP - General 01/12/07 03/07/20 Unknown, Provider . [place] [address] PCP - General 03/08/20 04/06/20 Provider, No Primary . [place] [address] PCP - General 04/07/20 04/15/20 Yaneth Reyes MD [address] [place] [id number] PCP - General Family Medicine 04/16/20 [place] [facility] [address] [facility] [place] [address] 08/06/17 Yaneth Reyes MD [address] [place] [id number] 08/06/17 04/18/20 Yaneth Reyes MD . [place] [address] Family Medicine 04/10/20 04/18/20 documented as of this encounter Additional Source Comments PLEASE NOTE: Replies to this message will not be received.[facility] and [facility]
--- OUTSIDE RECORDS SUMMARY | 2024-09-10 17:17 | XMS_ITS | Encounter Summary ---
Author Organization [facility] Affiliates Address [address] [place] [address] Care Team Providers Care Color Television Console Monitor Name Role Phone Yaneth Reyes MD Primary Care P rovider [place], Subacute Unit St. Unavailable Yaneth Reyes MD Unavailable Unknown, Provider Primary Care Provider Unavaila ble Provider, No Primary Primary Care Provider Unava ilable Yaneth Reyes MD Unavailable Yaneth Reyes MD Primary Care P rovider Encounter Details Date Type Department Care Team (Late st Contact Info) Description 08/13/1984 Scan [facility] [address] [place] [address] Unknown, [place] [address] Social History Tobacco Use Types Packs/Day Years Used Date Smoking Tobacco: Never Assessed Comments Unknown Sex and Gender Information Value Date Recorded Sex Assigned at Not on file Legal Sex Female 10:54 PM PHARMACY TECHNOLOGY INSTRUCTOR Gender Identity Not on file Sexual Orientation Not on file documented as of this encounter Procedure Notes * Unknown, Provider, - 08/13/1984 4:54 PM CST MACY TECHNOLOGY INSTRUCTOR * LAKESHA PORTER - 08/13/1984 4:54 PM CSTAssociated Order(s): PATHOLOGY REPORT - S MACY TECHNOLOGY INSTRUCTOR documented in this encounter Plan of Treatment Not on file documented as of this encounter Procedures Procedure Name Priority Date/Time Associated Diagnosis Comments PATHOLOGY REPORT - S 08/13/1984 4:54 PM PHARMACY TECHNOLOGY INSTRUCTOR documented in this encounter Results * PATHOLOGY REPORT - S (08/13/1984 4:54 PM PHARMACY TECHNOLOGY INSTRUCTOR) Narrative Procedure Note LAKESHA PORTER - 08/13/1984 4:54 PM CST us Scan Linda PROCEDURE [...] documented as of this encounter Care Teams Color Television Console Monitor Relationship Specialty Start Date End Date Yaneth Reyes MD PCP - General 01/12/07 03/07/20 Unknown, Provider . [place] [address] PCP - General 03/08/20 04/06/20 Provider, No Primary . [place] [address] PCP - General 04/07/20 04/15/20 Yaneth Reyes MD [address] [place] [id number] PCP - General Family Medicine 04/16/20 [place], [facility] [address] [facility] [place] [address] 08/06/17 Yaneth Reyes MD [address] [place] [id number] 08/06/17 04/18/20 Yaneth Reyes MD . [place] [address] Family Medicine 04/10/20 04/18/20 documented as of this encounter Additional Source Comments PLEASE NOTE: Replies to this message will not be received.[facility] and [facility]
--- OUTSIDE RECORDS SUMMARY | 2024-09-10 17:18 | XMS_ITS | CCD ---
Author Name Aida Sr CNP Address [address] [facility] [address] [place] [address] [facility] Phone Care Team Providers Care Alarm Operator Name Role Phone Orin RADHAAida Primary Care Provider Unavaila ble Orin RADHAAida Chronic Care Management Unavai lable Summary Purpose DataExchange Insurance Providers Payer name Policy type / Coverage type Covered republican ID Effective Begin Date Effective End Date [employer] Commercial Insurance [id number] Unknown Family history Runs in the family Diagnosis Age At Onset No Known Diseases N/A Social History Social History Element Codes Description Effec tive Dates Marital status Unknown 01/28/2024 Living arrangements Unknown Memory Care 01/28/[address]: 384083192 Never smoker 01/[address]: 096851597 No Alcohol Consum ption 01/28/2024 Sexually Active? [...] Fill Instructions risperidone 0.5 mg tablet RxNorm: 750764 Take 1 Tablet(s) Oral QAM every morning 03/14/20 24 024 Inactive risperidone 1 mg tablet RxNorm: 040065 Take 1 Tablet(s) Oral HS at bed time 02/22/20 24 024 Inactive acetaminophen 500 mg tablet RxNorm: 717028 Take 2 Tablet(s) Oral TID as needed 02/22/20 24 No Stop Date Active acetaminophen 500 mg tablet RxNorm: 089536 Take 2 Tablet(s) Oral TID as needed 02/22/20 24 024 Inactive sertraline 100 mg tablet RxNorm: 934047 Take 1 Tablet(s) Oral QD Take w/ 50mg tablet 01/27/20 24 025 Active sertraline 50 mg tablet RxNorm: 961408 Take 1 Tablet(s) Oral QD Take w/ 100mg tablet 01/27/20 24 025 Active acetaminophen 500 mg tablet RxNorm: 612433 Take 2 Tablet(s) Oral TID as needed 01/27/20 24 024 Inactive amlodipine 5 mg tablet RxNorm: 882947 Take 1 Tablet(s) Oral QAM every morning 01/09/20 24 048 Active REFILL REQUEST FOR CYCLE THAT BEGINS 01/30, THANK YOU! levothyroxine 50 mcg tablet RxNorm: 322228 Take 1 Tablet(s) Oral QD BEFORE BREAKFAST 01/09/20 24 048 Active REFILL REQUEST FOR CYCLE THAT BEGINS 01/30, THANK YOU! cholecalciferol (vitamin D3) 50 mcg (2,000 unit) tablet RxNorm: 825571 Take 1 Tablet(s) Oral QAM every morning 01/09/20 24 048 Active REFILL REQUEST FOR CYCLE THAT BEGINS 01/30, THANK YOU! risperidone 0.5 mg tablet RxNorm: 898775 Take 1 Tablet(s) Oral BID 01/09/20 24 024 Inactive REFILL REQUEST FOR CYCLE THAT BEGINS 01/30, THANK YOU! sertraline 50 mg tablet RxNorm: 518896 TAKE 1 TABLET BY MOUTH ONCE DAILY. TAKE ALONG WITH 100 MG TABLET DAILY FOR A TOTAL DOSE OF 150 MG 01/09/20 24 024 Inactive REFILL REQUEST FOR CYCLE THAT BEGINS 01/30, THANK YOU! risperidone 0.5 mg tablet RxNorm: 482001 Take 1 Tablet(s) Oral BID 01/07/20 24 024 Inactive levofloxacin 500 mg tablet RxNorm: 732588 Take 1 Tablet(s) Oral QD 12/31/19 24 024 Inactive acetaminophen 500 mg tablet RxNorm: 972438 Take 2 Tablet(s) Oral TID 12/31/19 24 024 Inactive levofloxacin 500 mg tablet RxNorm: 305700 Take 1 Tablet(s) Oral QD 12/31/19 24 024 Inactive divalproex ER 250 mg tablet,extended release 24 hr RxNorm: 3912389 TAKE 1 TABLET BY MOUTH AT BEDTIME HAZARDOUS DRUG-DOUBLE GLOVE 10/21/19 24 048 Active CYCLE FILL REFILL REQUEST FOR CYCLE FILL THAT STARTS 11/08/2023. risperidone 1 mg tablet RxNorm: 303606 Take 1 Tablet(s) Oral BID 10/21/19 24 024 Inactive CYCLE FILL REFILL REQUEST FOR CYCLE FILL THAT STARTS 11/08/2023. Senexon-S 8.6 mg-50 mg tablet RxNorm: 9478785 Take 1 Tablet(s) Oral BID as needed 09/13/19 24 025 Inactive acetaminophen 500 mg tablet RxNorm: 476284 Take 2 Tablet(s) Oral BID as needed 09/13/19 24 024 Inactive Tylenol Extra Strength 500 mg tablet RxNorm: 307809 Take 2 Tablet(s) Oral BID as needed 09/13/19 24 024 Inactive trazodone 50 mg tablet RxNorm: 497635 Take 1 Tablet(s) Oral QHS every night at bedtime 09/13/19 24 024 Inactive quetiapine 100 mg tablet RxNorm: 603737 Take 1.5 Tablet(s) Oral HS at bed time 09/13/19 24 024 Inactive sertraline 100 mg tablet RxNorm: 220771 Take 1.5 Tablet(s) Oral QD 09/13/19 24 024 Inactive Pain Reliever Plus 250 mg-250 mg-65 mg tablet RxNorm: 723970 Take 2 Tablet(s) Oral QD as needed 09/13/19 24 024 Inactive sertraline 100 mg tablet RxNorm: 002702 Take 1 Tablet(s) Oral QD 07/29/19 024 Inactive Please authorize cycle refill. Thanks. acetaminophen 500 mg tablet RxNorm: 134450 Take 2 Tablet(s) Oral BID as needed 07/20/19 Inactive acetaminophen 500 mg tablet RxNorm: 455725 Take 2 Tablet(s) Oral BID as needed 07/20/19 024 Inactive sertraline 100 mg tablet RxNorm: 849283 Take 1 Tablet(s) Oral QD 07/13/19 Inactive donepezil 5 mg tablet RxNorm: 449633 TAKE ONE-HALF TABLET (2.5MG) BY MOUTH ONCE DAILY 07/05/20 023 Inactive Cycle refill request. Cycle restarts (07/19/23). risperidone 1 mg tablet RxNorm: 662470 Take 1 Tablet(s) Oral HS at bed time 06/25/20 024 Inactive trazodone 50 mg tablet RxNorm: 628158 Take 1 Tablet(s) Oral QHS every night at bedtime as needed 06/25/20 024 Inactive quetiapine 25 mg tablet RxNorm: 339789 Take 1 Tablet(s) Oral Q4H every four hours as needed 06/25/20 23 024 Inactive Senna-S 8.6 mg-50 mg tablet RxNorm: 428701 Take 1 Tablet(s) Oral BID as needed 06/25/20 23 023 Inactive trazodone 50 mg tablet RxNorm: 690883 Take 1 Tablet(s) Oral QHS every night at bedtime as needed 06/25/20 23 023 Inactive Senna-S 8.6 mg-50 mg tablet RxNorm: 699551 Take 1 Tablet(s) Oral BID as needed 06/25/20 23 024 Inactive acetaminophen 500 mg tablet RxNorm: 988401 Take 2 Tablet(s) Oral BID as needed 06/18/20 23 024 Inactive acetaminophen 500 mg tablet RxNorm: 516781 Take 2 Tablet(s) Oral BID as needed 06/18/20 023 Inactive Excedrin Extra Strength 250 mg-250 mg-65 mg tablet RxNorm: 589286 Take 2 Tablet(s) Oral QD as needed 06/18/20 023 Inactive Excedrin Extra Strength 250 mg-250 mg-65 mg tablet RxNorm: 817804 Take 2 Tablet(s) Oral QD as needed 06/18/20 024 Inactive risperidone 1 mg tablet RxNorm: 219827 Take 1 Tablet(s) Oral BID 06/04/20 023 Inactive quetiapine 25 mg tablet RxNorm: 835439 Take 1 Tablet(s) Oral BID as needed 06/04/20 023 Inactive trazodone 50 mg tablet RxNorm: 635539 Take 1 Tablet(s) Oral QHS every night at bedtime 06/04/20 023 Inactive donepezil 10 mg tablet RxNorm: 918965 Take 1 Tablet(s) Oral QD 06/04/20 024 Inactive risperidone 1 mg tablet RxNorm: 439371 Take 1 Tablet(s) Oral BID as needed 06/04/20 023 Inactive Senexon-S 8.6 mg-50 mg tablet RxNorm: 3050663 Take 1 Tablet(s) Oral BID 06/03/20 023 Inactive Please authorize quantity 90 day supply with PRN refills for assisted living patient. Their cycle restarts 06/14/23. Thank you! memantine 5 mg tablet RxNorm: 962008 TAKE ONE-HALF TABLET (2.5MG) BY MOUTH TWICE DAILY 06/03/20 023 Inactive Please authorize quantity 90 day supply with PRN refills for assisted living patient. Their cycle restarts 06/14/23. Thank you! divalproex 125 mg capsule,delayed release sprinkle RxNorm: 0326243 TAKE 4 CAPSULES (500MG) BY MOUTH AT BEDTIME 06/03/20 024 Inactive Please authorize quantity 90 day supply with PRN refills for assisted living patient. Their cycle restarts 06/14/23. Thank you! sertraline 50 mg tablet RxNorm: 973481 Take 1 Tablet(s) Oral QD 06/03/20 23 024 Inactive Please authorize quantity 90 day supply with PRN refills for assisted living patient. Their cycle restarts 06/14/23. Thank you! naproxen 500 mg tablet RxNorm: 176571 Take 1 Tablet(s) Oral BID 01/23/20 23 023 Inactive naproxen 500 mg tablet RxNorm: 986170 Take 1 Tablet(s) Oral BID 01/23/20 023 Inactive naproxen 500 mg tablet RxNorm: 946987 Take 1 Tablet(s) Oral BID 01/23/20 023 Inactive mirtazapine 15 mg tablet RxNorm: 320315 Take 1 Tablet(s) Oral HS at bed time 01/01/20 023 Inactive CYCLE FILL REQUEST FOR CYCLE THAT STARTS 01/04/2023 escitalopram 10 mg tablet RxNorm: 912910 Take 1 Tablet(s) Oral QAM every morning 12/14/19 023 Inactive Cycle refill request. Cycle restarts (01/04/23). cholecalciferol (vitamin D3) 50 mcg (2,000 unit) tablet RxNorm: 911426 Take 1 Tablet(s) Oral QAM every morning 12/14/19 023 Inactive Cycle refill request. Cycle restarts (01/04/23). melatonin 10 mg sublingual tablet RxNorm: 6793987 TAKE 1 TABLET BY MOUTH AT BEDTIME NOTE DOSAGE/STRENGTH* 12/14/19 023 Inactive Cycle refill request. Cycle restarts (01/04/23). rivastigmine 1.5 mg capsule RxNorm: 571360 Take 1 Capsule(s) Oral BID 12/14/19 023 Inactive Cycle refill request. Cycle restarts (01/04/23). quetiapine 100 mg tablet RxNorm: 143488 Take 1 Tablet(s) Oral HS at bed time 12/14/19 023 Inactive Cycle refill request. Cycle restarts (01/04/23). levothyroxine 50 mcg tablet RxNorm: 616997 TAKE 1 TABLET BY MOUTH ONCE DAILY BEFORE BREAKFAST 12/14/19 23 023 Inactive Cycle refill request. Cycle restarts (01/04/23). amlodipine 5 mg tablet RxNorm: 691780 Take 1 Tablet(s) Oral QAM every morning 12/14/19 23 023 Inactive Cycle refill request. Cycle restarts (01/04/23). buspirone 15 mg tablet RxNorm: 336433 Take 1 Tablet(s) Oral BID 12/14/19 23 023 Inactive Cycle refill request. Cycle restarts (01/04/23). amitriptyline 10 mg tablet RxNorm: 296209 Take 1 Tablet(s) Oral HS at bed time 12/14/19 23 023 Inactive Cycle refill request. Cycle restarts (01/04/23). levofloxacin 500 mg tablet RxNorm: 584889 Take 1 Tablet(s) Oral QD 11/24/19 23 023 Inactive levofloxacin 500 mg tablet RxNorm: 679906 Take 1 Tablet(s) Oral QD 11/24/19 23 023 Inactive levothyroxine 50 mcg tablet RxNorm: 879280 Take 1 Tablet(s) Oral QD before Breakfast 11/18/19 23 023 Inactive amitriptyline 10 mg tablet RxNorm: 913860 Take 1 Tablet(s) Oral QHS every night at bedtime 11/18/19 23 023 Inactive acetaminophen 500 mg tablet RxNorm: 054066 2 Tablet(s) Oral TID as needed 11/18/19 23 023 Inactive amlodipine 5 mg tablet RxNorm: 588385 Take 1 Tablet(s) Oral QAM every morning 11/18/19 23 023 Inactive melatonin 5 mg tablet RxNorm: 700351 Give 1 Tablet(s) Oral QHS every night at bedtime 11/18/19 23 023 Inactive buspirone 15 mg tablet RxNorm: 508111 Take 1 Tablet(s) Oral BID 11/18/19 023 Inactive Seroquel 25 mg tablet RxNorm: 788539 Take 1 Tablet(s) Oral QHS every night at bedtime 11/18/19 023 Inactive cholecalciferol (vitamin D3) 50 mcg (2,000 unit) tablet RxNorm: 296894 Take 1 Tablet(s) Oral QD 11/18/19 023 Inactive rivastigmine 1.5 mg capsule RxNorm: 245433 Take 2 Capsule(s) Oral BID 11/18/19 023 Inactive mirtazapine 15 mg tablet RxNorm: 805489 Take 1 Tablet(s) Oral QHS every night at bedtime 11/18/19 023 Inactive aspirin-acetaminoph en-caffeine 250 mg-250 mg-65 mg tablet RxNorm: 929363 Take 2 Tablet(s) Oral QD as needed 11/18/19 023 Inactive escitalopram 10 mg tablet RxNorm: 373149 Take 1 Tablet(s) Oral QD 11/18/19 023 Inactive Medication Administered No Medication Administered data Immunizations Vaccine Codes Dose Date Status Influenza CVX: 205 1.0 04/06/2022 Covid-19 (B5M.COM mR NA, LNP-S, PF, 30 mcg/0.3 mL [...] Code Result Date Service Location Urine Culture 41016 URINE CULTURE 43637-6 SEE RESU LTS BELOW 04/20/20 Unknown UA with Microscopic Reflex to Culture 17793 COLOR [place] 04/14/20 Unknown UA with Microscopic Reflex to Culture [id number] Appearance Cloudy 04/14/20 Unknown UA with Microscopic Reflex to Culture 62059 GLUCOSE, URINE Negative mg/dL 04/14/20 Unknown UA with Microscopic Reflex to Culture 00214 BILIRUBIN, URINE Negative 04/14/20 Unknown UA with Microscopic Reflex to Culture 27062 Ketones Urine Negative mg/dL 04/14/20 Unknown UA with Microscopic Reflex to Culture 21755 Specific [place] Urine 1.020 04/14/20 Unknown UA with Microscopic Reflex to Culture 45787 BLOOD, URINE Moderate 04/14/20 Unknown UA with Microscopic Reflex to Culture 87626 pH Urine 8.0 04/14/20 Unknown UA with Microscopic Reflex to Culture 45414 Protein urine 600 mg/dL 04/14/20 Unknown UA with Microscopic Reflex to Culture 59288 UROBILINOGEN IRIS Normal mg/dL 04/14/20 Unknown UA with Microscopic Reflex to Culture 99084 Nitrites Negative 04/14/20 Unknown UA with Microscopic Reflex to Culture 46746 LEUK ESTERASE Trace 04/14/20 Unknown UA with Microscopic Reflex to Culture 21199 Mucus Urine Present /LPF 04/14/20 Unknown UA with Microscopic Reflex to Culture 44950 RBC Urine >182 /HPF 04/14/20 Unknown UA with Microscopic Reflex to Culture 67705 WBC Urine 62076-1 76 /HPF 04/14/20 Unknown UA with Microscopic Reflex to Culture 10780 TRIPLE PHOSPHATES CRYSTALS Few /HPF 04/14/20 Unknown Functional Status Functional / Cognitive Codes [...] Codes Status Date Appointment: Aida Sr WPtel: [address] [place], [place] [phone] [place] F/U 12/31/2023 Appointment: Aida Sr WPtel: [address] [place], [place] [phone] [place] F/U 09/17/2023 Appointment: Aida Sr WPtel: [address] [place], [place] [phone] [place] F/U 07/23/2023 Appointment: Aida Sr WPtel: [address] [place], [place] [phone] [place] F/U 06/25/2023 Appointment: Bam Frey: [address] [place], [place] [phone] [place] SDV 01/22/2023 Appointment: Aida Sr WPtel: [address] [place], [place] [phone] NPAWV 11/20/2022 Referral: General Psychiatrist Referral Patient/Family Scheduling Appointment Referral: VIA Orthopedics- I n Home Visits WPtel: [address], [address] [id number] Referral Order Note Incomplete Instructions Comment Date Elderly female residing in [facility] assisted living at [facility]. PMHx: dementia, cluster B personality traits, depression, hypothyroidism, HTN, anxiety, suicidal ideationsPOLST: FULL CODEFred Anatoly-spouse, Dqwk: -therapist: weekly calls usually on :1 visits 3 times weekly 01/28/2024
--- OUTSIDE RECORDS SUMMARY | 2024-09-10 17:18 | XMS_ITS | CCD ---
Author Name Aida Sr CNP Address [address] [facility] [address] [facility] [address] [facility] [address] [place] [address] Phone Organization [facility] Phone Care Team Providers Care Analysis Tester Name Role Phone Orin CLOTH BOIL OFF MACHINE OPERATORAida Primary Care Provider Unavaila ble Orin CLOTH BOIL OFF MACHINE OPERATORAida Chronic Care Management Unavai lable Summary Purpose DataExchange Insurance Providers Payer name Policy type / Coverage type Covered constitution party ID Effective Begin Date Effective End Date [employer] Commercial Insurance [id number] Unknown [id number] Family History Family History data not found [...] Fill Instructions levothyroxine 50 mcg tablet RxNorm: 119059 Take 1 Tablet(s) Oral QD before Breakfast 3 023 Inactive amitriptyline 10 mg tablet RxNorm: 177091 Take 1 Tablet(s) Oral QHS every night at bedtime 3 023 Inactive acetaminophen 500 mg tablet RxNorm: 436555 2 Tablet(s) Oral TID as needed 3 023 Inactive amlodipine 5 mg tablet RxNorm: 624216 Take 1 Tablet(s) Oral QAM every morning 3 023 Inactive melatonin 5 mg tablet RxNorm: 283561 Give 1 Tablet(s) Oral QHS every night at bedtime 3 023 Inactive buspirone 15 mg tablet RxNorm: 924649 Take 1 Tablet(s) Oral BID 3 023 Inactive Seroquel 25 mg tablet RxNorm: 493330 Take 1 Tablet(s) Oral QHS every night at bedtime 3 023 Inactive cholecalciferol (vitamin D3) 50 mcg (2,000 unit) tablet RxNorm: 331709 Take 1 Tablet(s) Oral QD 3 023 Inactive rivastigmine 1.5 mg capsule RxNorm: 467499 Take 2 Capsule(s) Oral BID 3 023 Inactive mirtazapine 15 mg tablet RxNorm: 292622 Take 1 Tablet(s) Oral QHS every night at bedtime 3 023 Inactive aspirin-acetaminoph en-caffeine 250 mg-250 mg-65 mg tablet RxNorm: 222083 Take 2 Tablet(s) Oral QD as needed 3 023 Inactive escitalopram 10 mg tablet RxNorm: 756649 Take 1 Tablet(s) Oral QD 3 023 Inactive Medication Administered No Medication Administered data Immunizations Vaccine Codes Dose Date Status Influenza CVX: 205 1.0 04/06/2022 Covid-19 ([employer] mR NA, LNP-S, PF, 30 mcg/0.3 mL [...] Item Item Code Result Date Service Location Vitamin D Deficiency GSY765 VITAMIN D DEFICIENCY SCREENING 29 ug/L 023 Unknown Comprehensive Metabolic Panel 10070 Sodium 2951-2 136 mmol/L 023 Unknown Comprehensive Metabolic Panel 16758 POTASSIUM ([place]) 2823-3 4.2 mmol/L 023 Unknown Comprehensive Metabolic Panel 96084 UREA NITROGEN ([place]) 13.1 mg/dL 023 Unknown Comprehensive Metabolic Panel 45751 CHLORIDE ([place]) 101 mmol/L 023 Unknown Comprehensive Metabolic Panel 35277 CO2 ([place]) 18 mmol/L 023 Unknown Comprehensive Metabolic Panel 62017 ANION GAP ([place]) 17 mmol/L 023 Unknown Comprehensive Metabolic Panel 15549 Creatinine 2160-0 0.57 mg/dL 023 Unknown Comprehensive Met[facility] Panel 46419 GLUCOSE ([place]) 2345-7 139 mg/dL 023 Unknown Comprehensive Metabolic Panel 56599 Calcium 56319-8 9.5 mg/dL 023 Unknown Comprehensive Metabolic Panel 39597 Alkaline Phosphatase 98 U/L 023 Unknown Comprehensive Metabolic Panel 60912 AST 51 U/L 023 Unknown Comprehensive Metabolic Panel 77529 PROTEIN, TOTAL 2885-2 6.4 g/dL 023 Unknown Comprehensive Metabolic Panel 28443 ALT 76 U/L 023 Unknown Comprehensive Metabolic Panel 75036 Albumin 1751-7 4.3 g/dL 023 Unknown Comprehensive Metabolic Panel 09382 Bilirubin Total 0.5 mg/dL 023 Unknown Comprehensive Metabolic Panel 92129 GFR, ESTIMATE 93097-6 88 mL/min/1.73 m2 023 Unknown TSH 43383-4 TSH ([place]) 56623-4 1.63 uIU/mL 023 Unknown CBC with Platelets [id number] WBC COUNT (AUTOMATED) 7.4 10e3/uL 023 Unknown CBC with Platelets JUJ952 RBC COUNT 789-8 4.44 10e6/uL 023 Unknown CBC with Platelets XDX973 Hemoglobin 718-7 14.3 g/dL 023 Unknown CBC with Platelets DGO581 Hematocrit 4544-3 43.6 % 023 Unknown CBC with Platelets IHQ467 MCV 787-2 98 fL 023 Unknown CBC with Platelets VXG385 MCH 32.2 pg 023 Unknown CBC with Platelets AFT272 MCHC 32.8 g/dL 023 Unknown CBC with Platelets JQD860 RDW 12.4 % 023 Unknown CBC with Platelets UQQ302 Platelet Count 777-3 271 10e3/uL 023 Unknown Urine Culture 93770 URINE CULTURE [id number] SEE RESU LTS BELOW 023 Unknown UA with Microscopic Reflex to Culture 95684 COLOR Yellow 023 Unknown UA with Microscopic Reflex to Culture 03693 Appearance Clear 023 Unknown UA with Microscopic Reflex to Culture 56671 GLUCOSE, URINE Negative mg/dL 023 Unknown UA with Microscopic Reflex to Culture 46524 BILIRUBIN, URINE Negative 023 Unknown UA with Microscopic Reflex to Culture 48798 Ketones Urine Negative mg/dL 023 Unknown UA with Microscopic Reflex to Culture 67709 Specific [place] Urine 1.015 023 Unknown UA with Microscopic Reflex to Culture 29562 BLOOD, URINE Negative 023 Unknown UA with Microscopic Reflex to Culture 31831 pH Urine 6.5 023 Unknown UA with Microscopic Reflex to Culture 21726 Protein urine Negative mg/dL 023 Unknown UA with Microscopic Reflex to Culture 15061 UROBILINOGEN IRIS Normal mg/dL 023 Unknown UA with Microscopic Reflex to Culture 95718 Nitrites Negative 023 Unknown UA with Microscopic Reflex to Culture 67441 LEUK ESTERASE Moderate 023 Unknown UA with Microscopic Reflex to Culture 85246 Mucus Urine Present /LPF 023 Unknown UA with Microscopic Reflex to Culture 48462 RBC Urine <1 /HPF 023 Unknown UA with Microscopic Reflex to Culture 04285 WBC Urine 20367-1 13 /HPF 023 Unknown UA with Microscopic Reflex to Culture 79397 SQUAMOUS EPITHELIAL 1 /HPF 023 Unknown UA with Microscopic Reflex to Culture 67740 TRANSITIONAL EPI <1 /HPF 023 Unknown Reason For Visit No Reason For Visit data Plan of Care Planned Activity Notes Codes Status Date Referral: General Psychiatrist Referral Patient/Family Scheduling Appointment Referral: VIA Orthopedics- I n Home Visits WPtel: [address], [address] [id number] Referral Order Note Incomplete Instructions Comment Date Elderly female residing in [facility] assisted living at [facility]. PMHx: dementia, cluster B personality traits, depression, hypothyroidism, HTN, anxiety, suicidal ideationsPOLST: FULL CODEFred Anatoly-spouse, Vcwg: November/-therapist: weekly calls usually on :1 visits 3 times weekly 01/28/2024
--- OUTSIDE RECORDS SUMMARY | 2024-09-10 17:18 | XMS_ITS | CCD ---
Author Organization Unknown Care Team Providers Care Art Critic Name Role Phone Orin GARCIA, Aida Primary Care Provider Unavaila ble Aida Sr CNP Chronic Care Management Unavai lable Summary Purpose DataExchange Insurance Providers Payer name Policy type / Coverage type Covered republican ID Effective Begin Date Effective End Date [employer] Commercial Insurance [id number] Unknown Family History Family History data not [...] Fill Instructions levofloxacin 500 mg tablet RxNorm: 392521 Take 1 Tablet(s) Oral QD 12/31/19 24 024 Inactive acetaminophen 500 mg tablet RxNorm: 084147 Take 2 Tablet(s) Oral TID 12/31/19 24 024 Inactive levofloxacin 500 mg tablet RxNorm: 575857 Take 1 Tablet(s) Oral QD 12/31/19 24 024 Inactive divalproex ER 250 mg tablet,extended release 24 hr RxNorm: 1908804 TAKE 1 TABLET BY MOUTH AT BEDTIME HAZARDOUS DRUG-DOUBLE GLOVE 10/21/19 24 048 Active CYCLE FILL REFILL REQUEST FOR CYCLE FILL THAT STARTS 11/08/2023. risperidone 1 mg tablet RxNorm: 730868 Take 1 Tablet(s) Oral BID 10/21/19 24 024 Inactive CYCLE FILL REFILL REQUEST FOR CYCLE FILL THAT STARTS 11/08/2023. Senexon-S 8.6 mg-50 mg tablet RxNorm: 6413755 Take 1 Tablet(s) Oral BID as needed 09/13/19 24 025 Inactive sertraline 100 mg tablet RxNorm: 926993 Take 1.5 Tablet(s) Oral QD 09/13/19 24 024 Inactive Pain Reliever Plus 250 mg-250 mg-65 mg tablet RxNorm: 987903 Take 2 Tablet(s) Oral QD as needed 09/13/19 24 Inactive acetaminophen 500 mg tablet RxNorm: 554243 Take 2 Tablet(s) Oral BID as needed 09/13/19 24 024 Inactive Tylenol Extra Strength 500 mg tablet RxNorm: 065723 Take 2 Tablet(s) Oral BID as needed 09/13/19 24 024 Inactive trazodone 50 mg tablet RxNorm: 877476 Take 1 Tablet(s) Oral QHS every night at bedtime 09/13/19 24 024 Inactive quetiapine 100 mg tablet RxNorm: 123556 Take 1.5 Tablet(s) Oral HS at bed time 09/13/19 24 024 Inactive sertraline 100 mg tablet RxNorm: 108841 Take 1 Tablet(s) Oral QD 07/29/19 Inactive Please authorize cycle refill. Thanks. acetaminophen 500 mg tablet RxNorm: 836815 Take 2 Tablet(s) Oral BID as needed 07/20/19 24 024 Inactive acetaminophen 500 mg tablet RxNorm: 535330 Take 2 Tablet(s) Oral BID as needed 07/20/19 24 024 Inactive sertraline 100 mg tablet RxNorm: 400276 Take 1 Tablet(s) Oral QD 07/13/19 24 024 Inactive donepezil 5 mg tablet RxNorm: 352651 TAKE ONE-HALF TABLET (2.5MG) BY MOUTH ONCE DAILY 07/05/20 23 023 Inactive Cycle refill request. Cycle restarts (07/19/23). risperidone 1 mg tablet RxNorm: 933700 Take 1 Tablet(s) Oral HS at bed time 06/25/20 23 024 Inactive trazodone 50 mg tablet RxNorm: 420613 Take 1 Tablet(s) Oral QHS every night at bedtime as needed 06/25/20 23 024 Inactive quetiapine 25 mg tablet RxNorm: 069453 Take 1 Tablet(s) Oral Q4H every four hours as needed 06/25/20 024 Inactive Senna-S 8.6 mg-50 mg tablet RxNorm: 925711 Take 1 Tablet(s) Oral BID as needed 06/25/20 023 Inactive trazodone 50 mg tablet RxNorm: 485909 Take 1 Tablet(s) Oral QHS every night at bedtime as needed 06/25/20 023 Inactive Senna-S 8.6 mg-50 mg tablet RxNorm: 864401 Take 1 Tablet(s) Oral BID as needed 06/25/20 024 Inactive acetaminophen 500 mg tablet RxNorm: 537859 Take 2 Tablet(s) Oral BID as needed 06/18/20 024 Inactive acetaminophen 500 mg tablet RxNorm: 846253 Take 2 Tablet(s) Oral BID as needed 06/18/20 023 Inactive Excedrin Extra Strength 250 mg-250 mg-65 mg tablet RxNorm: 141960 Take 2 Tablet(s) Oral QD as needed 06/18/20 23 023 Inactive Excedrin Extra Strength 250 mg-250 mg-65 mg tablet RxNorm: 245052 Take 2 Tablet(s) Oral QD as needed 06/18/20 024 Inactive risperidone 1 mg tablet RxNorm: 348386 Take 1 Tablet(s) Oral BID 06/04/20 023 Inactive quetiapine 25 mg tablet RxNorm: 343176 Take 1 Tablet(s) Oral BID as needed 06/04/20 023 Inactive trazodone 50 mg tablet RxNorm: 950327 Take 1 Tablet(s) Oral QHS every night at bedtime 06/04/20 023 Inactive donepezil 10 mg tablet RxNorm: 163361 Take 1 Tablet(s) Oral QD 06/04/20 024 Inactive risperidone 1 mg tablet RxNorm: 488205 Take 1 Tablet(s) Oral BID as needed 06/04/20 023 Inactive Senexon-S 8.6 mg-50 mg tablet RxNorm: 9101322 Take 1 Tablet(s) Oral BID 06/03/20 023 Inactive Please authorize quantity 90 day supply with PRN refills for assisted living patient. Their cycle restarts 06/14/23. Thank you! memantine 5 mg tablet RxNorm: 061097 TAKE ONE-HALF TABLET (2.5MG) BY MOUTH TWICE DAILY 06/03/20 023 Inactive Please authorize quantity 90 day supply with PRN refills for assisted living patient. Their cycle restarts 06/14/23. Thank you! divalproex 125 mg capsule,delayed release sprinkle RxNorm: 5803409 TAKE 4 CAPSULES (500MG) BY MOUTH AT BEDTIME 06/03/20 024 Inactive Please authorize quantity 90 day supply with PRN refills for assisted living patient. Their cycle restarts 06/14/23. Thank you! sertraline 50 mg tablet RxNorm: 821758 Take 1 Tablet(s) Oral QD 06/03/20 024 Inactive Please authorize quantity 90 day supply with PRN refills for assisted living patient. Their cycle restarts 06/14/23. Thank you! naproxen 500 mg tablet RxNorm: 838506 Take 1 Tablet(s) Oral BID 01/23/20 23 023 Inactive naproxen 500 mg tablet RxNorm: 537506 Take 1 Tablet(s) Oral BID 01/23/20 23 023 Inactive naproxen 500 mg tablet RxNorm: 803331 Take 1 Tablet(s) Oral BID 01/23/20 23 023 Inactive mirtazapine 15 mg tablet RxNorm: 129346 Take 1 Tablet(s) Oral HS at bed time 01/01/20 23 023 Inactive CYCLE FILL REQUEST FOR CYCLE THAT STARTS 01/04/2023 escitalopram 10 mg tablet RxNorm: 837122 Take 1 Tablet(s) Oral QAM every morning 12/14/19 23 023 Inactive Cycle refill request. Cycle restarts (01/04/23). cholecalciferol (vitamin D3) 50 mcg (2,000 unit) tablet RxNorm: 936078 Take 1 Tablet(s) Oral QAM every morning 12/14/19 23 023 Inactive Cycle refill request. Cycle restarts (01/04/23). melatonin 10 mg sublingual tablet RxNorm: 4712502 TAKE 1 TABLET BY MOUTH AT BEDTIME NOTE DOSAGE/STRENGTH* 12/14/19 23 023 Inactive Cycle refill request. Cycle restarts (01/04/23). rivastigmine 1.5 mg capsule RxNorm: 000042 Take 1 Capsule(s) Oral BID 12/14/19 23 023 Inactive Cycle refill request. Cycle restarts (01/04/23). quetiapine 100 mg tablet RxNorm: 023809 Take 1 Tablet(s) Oral HS at bed time 12/14/19 23 023 Inactive Cycle refill request. Cycle restarts (01/04/23). levothyroxine 50 mcg tablet RxNorm: 020013 TAKE 1 TABLET BY MOUTH ONCE DAILY BEFORE BREAKFAST 12/14/19 23 023 Inactive Cycle refill request. Cycle restarts (01/04/23). amlodipine 5 mg tablet RxNorm: 094301 Take 1 Tablet(s) Oral QAM every morning 12/14/19 23 023 Inactive Cycle refill request. Cycle restarts (01/04/23). buspirone 15 mg tablet RxNorm: 776018 Take 1 Tablet(s) Oral BID 12/14/19 23 023 Inactive Cycle refill request. Cycle restarts (01/04/23). amitriptyline 10 mg tablet RxNorm: 839222 Take 1 Tablet(s) Oral HS at bed time 12/14/19 23 023 Inactive Cycle refill request. Cycle restarts (01/04/23). levofloxacin 500 mg tablet RxNorm: 265683 Take 1 Tablet(s) Oral QD 11/24/19 23 023 Inactive levofloxacin 500 mg tablet RxNorm: 460074 Take 1 Tablet(s) Oral QD 11/24/19 23 023 Inactive levothyroxine 50 mcg tablet RxNorm: 016430 Take 1 Tablet(s) Oral QD before Breakfast 05/12 023 Inactive amitriptyline 10 mg tablet RxNorm: 659107 Take 1 Tablet(s) Oral QHS every night at bedtime 11/18/19 023 Inactive acetaminophen 500 mg tablet RxNorm: 331266 2 Tablet(s) Oral TID as needed 11/18/19 023 Inactive amlodipine 5 mg tablet RxNorm: 104156 Take 1 Tablet(s) Oral QAM every morning 11/18/19 023 Inactive melatonin 5 mg tablet RxNorm: 807126 Give 1 Tablet(s) Oral QHS every night at bedtime 11/18/19 023 Inactive buspirone 15 mg tablet RxNorm: 839511 Take 1 Tablet(s) Oral BID 11/18/19 023 Inactive Seroquel 25 mg tablet RxNorm: 084059 Take 1 Tablet(s) Oral QHS every night at bedtime 11/18/19 023 Inactive cholecalciferol (vitamin D3) 50 mcg (2,000 unit) tablet RxNorm: 311614 Take 1 Tablet(s) Oral QD 11/18/19 023 Inactive rivastigmine 1.5 mg capsule RxNorm: 747567 Take 2 Capsule(s) Oral BID 11/18/19 023 Inactive mirtazapine 15 mg tablet RxNorm: 215572 Take 1 Tablet(s) Oral QHS every night at bedtime 11/18/19 023 Inactive aspirin-acetaminoph en-caffeine 250 mg-250 mg-65 mg tablet RxNorm: 839294 Take 2 Tablet(s) Oral QD as needed 11/18/19 023 Inactive escitalopram 10 mg tablet RxNorm: 914938 Take 1 Tablet(s) Oral QD 11/18/19 023 Inactive Medication Administered No Medication Administered data Immunizations Vaccine Codes Dose Date Status Influenza CVX: 205 1.0 04/06/2022 Covid-19 ([employer] mR NA, LNP-S, PF, 30 mcg/0.3 mL [...] WPtel: [address], [address] [id number] Referral Order Note Incomplete Instructions Comment Date Elderly female residing in [facility] assisted living at [facility]. PMHx: dementia, cluster B personality traits, depression, hypothyroidism, HTN, anxiety, suicidal ideationsPOLST: FULL CODEFred Anatoly-spouse, Dwku: November/-therapist: weekly calls usually on :1 visits 3 times weekly 01/28/2024
--- OUTSIDE RECORDS SUMMARY | 2024-09-10 17:18 | XMS_ITS | Clinical Summary ---
Author Organization [facility] Address [address] [place] [address] Care Team Providers Care Carpenter Streetcar Name Role Phone Aida Sr ELECTRIC CRANE OPERATOR Primary Care Provider [phone] Allergies Active Allergy Reactions Criticality Noted Date [...] Department Care Team Description 09/07/2024 11:40 AM QUEBRACHO TANNER - 09/07/2024 4:21 PM QUEBRACHO TANNER Emergency [facility] [place] [address] [place] [address] YUMIKO Ramirez [phone] from Last 3 Months Family History Medical [...] on file Legal Sex Female 6:32 AM QUEBRACHO TANNER Gender Identity Not on file Sexual Orientation Not on file Obstetrics History Last Filed Vital Signs Vital Sign Reading Time Taken Comments Blood Pressure 147/69 05/30/2023 8:11 AM QUEBRACHO TANNER Pulse 65 05/30/2023 8:11 AM QUEBRACHO TANNER Temperature 36.4 C (97.6 F) 05/30/2023 8:11 AM QUEBRACHO TANNER Respiratory Rate 16 05/30/2023 8:11 AM QUEBRACHO TANNER Oxygen Saturation 97% 05/30/2023 8:11 AM QUEBRACHO TANNER Inhaled Oxygen Concentration - - Weight 74.4 kg (164 lb) 05/28/2023 6:37 AM QUEBRACHO TANNER Height 162.6 cm (5' 4) 05/21/2023 12:42 PM QUEBRACHO TANNER Body Mass Index 28.15 05/21/2023 12:42 PM QUEBRACHO TANNER Plan of Treatment Health Maintenance Due Date [...] Personal/Family Self 1935 [id number] [place] [address] MEDICARE ADVANTAGE MR Member Subscriber Plan / Payer (Ef fective 2022-Present) Name:Gertrudis Ledbetter Relation to Subscriber:Self Name:Gertrudis Ledbetter Payer ID:[id number] (NAIC) Type:Not on file Address: BOX [facility] [place] MEDICARE PART A HB ONLY * Guarantor: Gertrudis Ledbetter Tray Account Type Relation to Patient Date of Phone Billing Address Personal/Family Self 1935 [id number] [place] [address] [place] [id number] Advance Directives Documents on File Type Date Recorded Patient Manager Payroll Expl anation POLST 11/29/2022 Healthcare Directive 12/18/2017 018 Power of [place] 06/25/2017 06/25/2017 * Full Code (Latest Code Status on File) Date Activated Date Inactivated Comments 05/22/2023 9:36 AM 05/30/2023 4:46 PM Question Answer Comments Code Status Discussion: Reviewed Preferences * Full Code Date Activated Date Inactivated Comments 05/21/2023 8:02 PM 05/22/2023 9:36 AM Question Answer Comments Code Status Discussion: Unable to Assess Preferences, Provider to review later Care Teams Carpenter Streetcar Relationship Specialty Start Date End Date Aida Sr NP [address] [place] [phone] PCP - General Nurse Practitioner 05/21/23
--- OUTSIDE RECORDS SUMMARY | 2024-09-10 17:19 | XMS_ITS | CCD ---
Author Name Aida Sr CNP Address [address] [place] [address] Phone Organization [facility] Phone Care Team Providers Care Marketing Designer Name Role Phone Aida Sr CNP Primary Care Provider Unavaila ble Orin INSTALL AND REPAIR TECHNICIANAida Chronic Care Management Unavai lable Summary Purpose DataExchange Insurance Providers Payer name Policy type / Coverage type Covered constitution party ID Effective Begin Date Effective End Date [employer] Commercial Insurance [id number] Unknown Family History Family History data not [...] Fill Instructions sertraline 100 mg tablet RxNorm: 483912 Take 1 Tablet(s) Oral QD 07/29/19 024 Inactive Please authorize cycle refill. Thanks. acetaminophen 500 mg tablet RxNorm: 792185 Take 2 Tablet(s) Oral BID as needed 07/20/19 24 Inactive acetaminophen 500 mg tablet RxNorm: 171287 Take 2 Tablet(s) Oral BID as needed 07/20/19 24 Inactive sertraline 100 mg tablet RxNorm: 143416 Take 1 Tablet(s) Oral QD 07/13/19 24 024 Inactive donepezil 5 mg tablet RxNorm: 071554 TAKE ONE-HALF TABLET (2.5MG) BY MOUTH ONCE DAILY 07/05/20 023 Inactive Cycle refill request. Cycle restarts (07/19/23). risperidone 1 mg tablet RxNorm: 414569 Take 1 Tablet(s) Oral HS at bed time 06/25/20 024 Inactive quetiapine 25 mg tablet RxNorm: 885494 Take 1 Tablet(s) Oral Q4H every four hours as needed 06/25/20 024 Inactive trazodone 50 mg tablet RxNorm: 621240 Take 1 Tablet(s) Oral QHS every night at bedtime as needed 06/25/20 024 Inactive Senna-S 8.6 mg-50 mg tablet RxNorm: 154031 Take 1 Tablet(s) Oral BID as needed 06/25/20 23 023 Inactive trazodone 50 mg tablet RxNorm: 621146 Take 1 Tablet(s) Oral QHS every night at bedtime as needed 06/25/20 023 Inactive Senna-S 8.6 mg-50 mg tablet RxNorm: 876911 Take 1 Tablet(s) Oral BID as needed 06/25/20 024 Inactive acetaminophen 500 mg tablet RxNorm: 226362 Take 2 Tablet(s) Oral BID as needed 06/18/20 23 024 Inactive acetaminophen 500 mg tablet RxNorm: 184860 Take 2 Tablet(s) Oral BID as needed 06/18/20 23 023 Inactive Excedrin Extra Strength 250 mg-250 mg-65 mg tablet RxNorm: 353515 Take 2 Tablet(s) Oral QD as needed 06/18/20 23 023 Inactive Excedrin Extra Strength 250 mg-250 mg-65 mg tablet RxNorm: 463800 Take 2 Tablet(s) Oral QD as needed 06/18/20 024 Inactive donepezil 10 mg tablet RxNorm: 375716 Take 1 Tablet(s) Oral QD 06/04/20 024 Inactive risperidone 1 mg tablet RxNorm: 737229 Take 1 Tablet(s) Oral BID 06/04/20 023 Inactive quetiapine 25 mg tablet RxNorm: 413297 Take 1 Tablet(s) Oral BID as needed 06/04/20 023 Inactive trazodone 50 mg tablet RxNorm: 265518 Take 1 Tablet(s) Oral QHS every night at bedtime 06/04/20 023 Inactive risperidone 1 mg tablet RxNorm: 117838 Take 1 Tablet(s) Oral BID as needed 06/04/20 023 Inactive divalproex 125 mg capsule,delayed release sprinkle RxNorm: 7459782 TAKE 4 CAPSULES (500MG) BY MOUTH AT BEDTIME 06/03/20 024 Inactive Please authorize quantity 90 day supply with PRN refills for assisted living patient. Their cycle restarts 06/14/23. Thank you! Senexon-S 8.6 mg-50 mg tablet RxNorm: 3977541 Take 1 Tablet(s) Oral BID 06/03/20 023 Inactive Please authorize quantity 90 day supply with PRN refills for assisted living patient. Their cycle restarts 06/14/23. Thank you! memantine 5 mg tablet RxNorm: 105033 TAKE ONE-HALF TABLET (2.5MG) BY MOUTH TWICE DAILY 06/03/20 023 Inactive Please authorize quantity 90 day supply with PRN refills for assisted living patient. Their cycle restarts 06/14/23. Thank you! sertraline 50 mg tablet RxNorm: 829666 Take 1 Tablet(s) Oral QD 06/03/20 024 Inactive Please authorize quantity 90 day supply with PRN refills for assisted living patient. Their cycle restarts 06/14/23. Thank you! naproxen 500 mg tablet RxNorm: 510238 Take 1 Tablet(s) Oral BID 01/23/20 23 023 Inactive naproxen 500 mg tablet RxNorm: 450500 Take 1 Tablet(s) Oral BID 01/23/20 23 023 Inactive naproxen 500 mg tablet RxNorm: 463192 Take 1 Tablet(s) Oral BID 01/23/20 23 023 Inactive mirtazapine 15 mg tablet RxNorm: 081054 Take 1 Tablet(s) Oral HS at bed time 01/01/20 23 023 Inactive CYCLE FILL REQUEST FOR CYCLE THAT STARTS 01/04/2023 escitalopram 10 mg tablet RxNorm: 188636 Take 1 Tablet(s) Oral QAM every morning 12/14/19 23 023 Inactive Cycle refill request. Cycle restarts (01/04/23). cholecalciferol (vitamin D3) 50 mcg (2,000 unit) tablet RxNorm: 073427 Take 1 Tablet(s) Oral QAM every morning 12/14/19 23 023 Inactive Cycle refill request. Cycle restarts (01/04/23). melatonin 10 mg sublingual tablet RxNorm: 1820850 TAKE 1 TABLET BY MOUTH AT BEDTIME NOTE DOSAGE/STRENGTH* 12/14/19 023 Inactive Cycle refill request. Cycle restarts (01/04/23). rivastigmine 1.5 mg capsule RxNorm: 568079 Take 1 Capsule(s) Oral BID 12/14/19 23 023 Inactive Cycle refill request. Cycle restarts (01/04/23). quetiapine 100 mg tablet RxNorm: 120497 Take 1 Tablet(s) Oral HS at bed time 12/14/19 23 023 Inactive Cycle refill request. Cycle restarts (01/04/23). levothyroxine 50 mcg tablet RxNorm: 539091 TAKE 1 TABLET BY MOUTH ONCE DAILY BEFORE BREAKFAST 12/14/19 23 023 Inactive Cycle refill request. Cycle restarts (01/04/23). amlodipine 5 mg tablet RxNorm: 961931 Take 1 Tablet(s) Oral QAM every morning 12/14/19 23 023 Inactive Cycle refill request. Cycle restarts (01/04/23). buspirone 15 mg tablet RxNorm: 096664 Take 1 Tablet(s) Oral BID 12/14/19 23 023 Inactive Cycle refill request. Cycle restarts (01/04/23). amitriptyline 10 mg tablet RxNorm: 338247 Take 1 Tablet(s) Oral HS at bed time 12/14/19 23 023 Inactive Cycle refill request. Cycle restarts (01/04/23). levofloxacin 500 mg tablet RxNorm: 197676 Take 1 Tablet(s) Oral QD 11/24/19 23 023 Inactive levofloxacin 500 mg tablet RxNorm: 797661 Take 1 Tablet(s) Oral QD 11/24/19 23 023 Inactive levothyroxine 50 mcg tablet RxNorm: 470873 Take 1 Tablet(s) Oral QD before Breakfast 11/18/19 23 023 Inactive amitriptyline 10 mg tablet RxNorm: 679228 Take 1 Tablet(s) Oral QHS every night at bedtime 11/18/19 023 Inactive acetaminophen 500 mg tablet RxNorm: 212026 2 Tablet(s) Oral TID as needed 11/18/19 23 023 Inactive amlodipine 5 mg tablet RxNorm: 070842 Take 1 Tablet(s) Oral QAM every morning 11/18/19 023 Inactive melatonin 5 mg tablet RxNorm: 242163 Give 1 Tablet(s) Oral QHS every night at bedtime 11/18/19 023 Inactive buspirone 15 mg tablet RxNorm: 264999 Take 1 Tablet(s) Oral BID 11/18/19 023 Inactive Seroquel 25 mg tablet RxNorm: 013644 Take 1 Tablet(s) Oral QHS every night at bedtime 11/18/19 023 Inactive cholecalciferol (vitamin D3) 50 mcg (2,000 unit) tablet RxNorm: 283773 Take 1 Tablet(s) Oral QD 11/18/19 023 Inactive rivastigmine 1.5 mg capsule RxNorm: 069411 Take 2 Capsule(s) Oral BID 11/18/19 023 Inactive mirtazapine 15 mg tablet RxNorm: 214510 Take 1 Tablet(s) Oral QHS every night at bedtime 11/18/19 023 Inactive aspirin-acetaminoph en-caffeine 250 mg-250 mg-65 mg tablet RxNorm: 200217 Take 2 Tablet(s) Oral QD as needed 11/18/19 023 Inactive escitalopram 10 mg tablet RxNorm: 157567 Take 1 Tablet(s) Oral QD 11/18/19 023 Inactive Medication Administered No Medication Administered data Immunizations Vaccine Codes Dose Date Status Influenza CVX: 205 1.0 04/06/2022 Covid-19 ([employer] mR NA, LNP-S, PF, 30 mcg/0.3 mL [...] Date Patient Education: Patient Medication Summary Completed 09/05/2023 Appointment: Aida Sr WPtel: [address] [place], [place] [phone] [place] F/U 07/23/2023 Appointment: Aida Sr WPtel: [address] [place], [place] [phone] [place] F/U 06/25/2023 Appointment: Bam Frey: [address] [place], [place] [phone] [place] SDV 01/22/2023 Appointment: Aida Sr WPtel: [address] [place] [address] [address] [id number] 11/20/2022 Referral: General Psychiatrist Referral Patient/Family Scheduling Appointment Referral: [facility] Home Visits WPtel: [address], [address] [id number] Referral Order Note Incomplete Instructions Comment Date Elderly female residing in [facility] assisted living at [facility]. PMHx: dementia, cluster B personality traits, depression, hypothyroidism, HTN, anxiety, suicidal ideationsPOLST: FULL CODEFred Anatoly-spouse, Ngnd: -therapist: weekly calls usually on :1 visits 3 times weekly 01/28/2024
--- OUTSIDE RECORDS SUMMARY | 2024-09-10 17:20 | XMS_ITS | Encounter Summary ---
Author Organization [facility] [employer] [facility] Address [address] [place] [address] Care Team Providers Care Etch Operator [employer] Wafers Name Role Phone Yaneth Reyes MD Primary Care P rovider [place], Subacute Unit St. Unavailable Yaneth Reyes MD Unavailable Unknown, Provider Primary Care Provider Unavaila ble Provider, No Primary Primary Care Provider Unava ilable Yaneth Reyes MD Unavailable Yaneth Reyes MD Primary Care P rovider Encounter Details Date Type Department Care Team (Late st Contact Info) Description 07/04/2014 Historical Conversion [facility] [address] 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 Answer Date of Assessment Author No 08/26/2013 9:37 AM FIREFIGHTER MARINE Katy Steel RN documented as of this encounter Plan of [...] documented as of this encounter Care Teams Etch Operator [employer] Wafers Relationship Specialty Start Date End Date Yaneth Reyes MD PCP - General 01/12/07 03/07/20 Unknown, [place] [address] PCP - General 03/08/20 04/06/20 Provider, [place] [address] PCP - General 04/07/20 04/15/20 Yaneth Reyes MD [address] [place] [phone] PCP - General Family Medicine 04/16/20 [place], [facility]acute [facility] [address] [place] [address] 08/06/17 Yaneth Reyes MD [address] [place] [id number] 08/06/17 04/18/20 Yaneth Reyes MD . [place] [address] Family Medicine 04/10/20 04/18/20 documented as of this encounter Additional Source Comments PLEASE NOTE: Replies to this message will not be received.[facility]
--- OUTSIDE RECORDS SUMMARY | 2024-09-10 17:21 | XMS_ITS | CCD ---
Author Name Adia Sr CNP Address [address] [place] [address] Phone Organization [facility] Phone Care Team Providers Care Utilities Estimator And Drafter Name Role Phone Aida Sr CNP Primary Care Provider Unavaila ble [facility] Chronic Care Management Unavai lable Summary Purpose DataExchange Insurance Providers Payer name Policy type / Coverage type Covered green party ID Effective Begin Date Effective End Date AddThis Commercial Insurance [id number] Unknown Family History Family History data not [...] Fill Instructions sertraline 100 mg tablet RxNorm: 004148 Take 1 Tablet(s) Oral QD 07/29/19 024 Inactive Please authorize cycle refill. Thanks. acetaminophen 500 mg tablet RxNorm: 553300 Take 2 Tablet(s) Oral BID as needed 07/20/19 24 Inactive acetaminophen 500 mg tablet RxNorm: 117591 Take 2 Tablet(s) Oral BID as needed 07/20/19 24 Inactive sertraline 100 mg tablet RxNorm: 553863 Take 1 Tablet(s) Oral QD 07/13/19 24 024 Inactive donepezil 5 mg tablet RxNorm: 682578 TAKE ONE-HALF TABLET (2.5MG) BY MOUTH ONCE DAILY 07/05/20 023 Inactive Cycle refill request. Cycle restarts (07/19/23). risperidone 1 mg tablet RxNorm: 038810 Take 1 Tablet(s) Oral HS at bed time 06/25/20 024 Inactive quetiapine 25 mg tablet RxNorm: 405278 Take 1 Tablet(s) Oral Q4H every four hours as needed 06/25/20 024 Inactive trazodone 50 mg tablet RxNorm: 247851 Take 1 Tablet(s) Oral QHS every night at bedtime as needed 06/25/20 024 Inactive Senna-S 8.6 mg-50 mg tablet RxNorm: 482849 Take 1 Tablet(s) Oral BID as needed 06/25/20 23 023 Inactive trazodone 50 mg tablet RxNorm: 983536 Take 1 Tablet(s) Oral QHS every night at bedtime as needed 06/25/20 023 Inactive Senna-S 8.6 mg-50 mg tablet RxNorm: 669240 Take 1 Tablet(s) Oral BID as needed 06/25/20 024 Inactive acetaminophen 500 mg tablet RxNorm: 979653 Take 2 Tablet(s) Oral BID as needed 06/18/20 23 024 Inactive acetaminophen 500 mg tablet RxNorm: 796842 Take 2 Tablet(s) Oral BID as needed 06/18/20 23 023 Inactive Excedrin Extra Strength 250 mg-250 mg-65 mg tablet RxNorm: 605411 Take 2 Tablet(s) Oral QD as needed 06/18/20 23 023 Inactive Excedrin Extra Strength 250 mg-250 mg-65 mg tablet RxNorm: 059979 Take 2 Tablet(s) Oral QD as needed 06/18/20 024 Inactive donepezil 10 mg tablet RxNorm: 407970 Take 1 Tablet(s) Oral QD 06/04/20 024 Inactive risperidone 1 mg tablet RxNorm: 698060 Take 1 Tablet(s) Oral BID 06/04/20 023 Inactive quetiapine 25 mg tablet RxNorm: 031565 Take 1 Tablet(s) Oral BID as needed 06/04/20 023 Inactive trazodone 50 mg tablet RxNorm: 043129 Take 1 Tablet(s) Oral QHS every night at bedtime 06/04/20 023 Inactive risperidone 1 mg tablet RxNorm: 918070 Take 1 Tablet(s) Oral BID as needed 06/04/20 023 Inactive divalproex 125 mg capsule,delayed release sprinkle RxNorm: 0398845 TAKE 4 CAPSULES (500MG) BY MOUTH AT BEDTIME 06/03/20 024 Inactive Please authorize quantity 90 day supply with PRN refills for assisted living patient. Their cycle restarts 06/14/23. Thank you! Senexon-S 8.6 mg-50 mg tablet RxNorm: 2266505 Take 1 Tablet(s) Oral BID 06/03/20 023 Inactive Please authorize quantity 90 day supply with PRN refills for assisted living patient. Their cycle restarts 06/14/23. Thank you! memantine 5 mg tablet RxNorm: 547215 TAKE ONE-HALF TABLET (2.5MG) BY MOUTH TWICE DAILY 06/03/20 023 Inactive Please authorize quantity 90 day supply with PRN refills for assisted living patient. Their cycle restarts 06/14/23. Thank you! sertraline 50 mg tablet RxNorm: 968952 Take 1 Tablet(s) Oral QD 06/03/20 024 Inactive Please authorize quantity 90 day supply with PRN refills for assisted living patient. Their cycle restarts 06/14/23. Thank you! naproxen 500 mg tablet RxNorm: 092419 Take 1 Tablet(s) Oral BID 01/23/20 23 023 Inactive naproxen 500 mg tablet RxNorm: 456235 Take 1 Tablet(s) Oral BID 01/23/20 23 023 Inactive naproxen 500 mg tablet RxNorm: 871140 Take 1 Tablet(s) Oral BID 01/23/20 23 023 Inactive mirtazapine 15 mg tablet RxNorm: 296042 Take 1 Tablet(s) Oral HS at bed time 01/01/20 23 023 Inactive CYCLE FILL REQUEST FOR CYCLE THAT STARTS 01/04/2023 escitalopram 10 mg tablet RxNorm: 782472 Take 1 Tablet(s) Oral QAM every morning 12/14/19 23 023 Inactive Cycle refill request. Cycle restarts (01/04/23). cholecalciferol (vitamin D3) 50 mcg (2,000 unit) tablet RxNorm: 529797 Take 1 Tablet(s) Oral QAM every morning 12/14/19 23 023 Inactive Cycle refill request. Cycle restarts (01/04/23). melatonin 10 mg sublingual tablet RxNorm: 9811167 TAKE 1 TABLET BY MOUTH AT BEDTIME NOTE DOSAGE/STRENGTH* 12/14/19 023 Inactive Cycle refill request. Cycle restarts (01/04/23). rivastigmine 1.5 mg capsule RxNorm: 905502 Take 1 Capsule(s) Oral BID 12/14/19 23 023 Inactive Cycle refill request. Cycle restarts (01/04/23). quetiapine 100 mg tablet RxNorm: 255416 Take 1 Tablet(s) Oral HS at bed time 12/14/19 23 023 Inactive Cycle refill request. Cycle restarts (01/04/23). levothyroxine 50 mcg tablet RxNorm: 709722 TAKE 1 TABLET BY MOUTH ONCE DAILY BEFORE BREAKFAST 12/14/19 23 023 Inactive Cycle refill request. Cycle restarts (01/04/23). amlodipine 5 mg tablet RxNorm: 869304 Take 1 Tablet(s) Oral QAM every morning 12/14/19 23 023 Inactive Cycle refill request. Cycle restarts (01/04/23). buspirone 15 mg tablet RxNorm: 200063 Take 1 Tablet(s) Oral BID 12/14/19 23 023 Inactive Cycle refill request. Cycle restarts (01/04/23). amitriptyline 10 mg tablet RxNorm: 444063 Take 1 Tablet(s) Oral HS at bed time 12/14/19 23 023 Inactive Cycle refill request. Cycle restarts (01/04/23). levofloxacin 500 mg tablet RxNorm: 643008 Take 1 Tablet(s) Oral QD 11/24/19 23 023 Inactive levofloxacin 500 mg tablet RxNorm: 516817 Take 1 Tablet(s) Oral QD 11/24/19 23 023 Inactive levothyroxine 50 mcg tablet RxNorm: 236783 Take 1 Tablet(s) Oral QD before Breakfast 11/18/19 23 023 Inactive amitriptyline 10 mg tablet RxNorm: 010458 Take 1 Tablet(s) Oral QHS every night at bedtime 11/18/19 023 Inactive acetaminophen 500 mg tablet RxNorm: 469638 2 Tablet(s) Oral TID as needed 11/18/19 23 023 Inactive amlodipine 5 mg tablet RxNorm: 603254 Take 1 Tablet(s) Oral QAM every morning 11/18/19 023 Inactive melatonin 5 mg tablet RxNorm: 691750 Give 1 Tablet(s) Oral QHS every night at bedtime 11/18/19 023 Inactive buspirone 15 mg tablet RxNorm: 849346 Take 1 Tablet(s) Oral BID 11/18/19 023 Inactive Seroquel 25 mg tablet RxNorm: 679490 Take 1 Tablet(s) Oral QHS every night at bedtime 11/18/19 023 Inactive cholecalciferol (vitamin D3) 50 mcg (2,000 unit) tablet RxNorm: 012182 Take 1 Tablet(s) Oral QD 11/18/19 023 Inactive rivastigmine 1.5 mg capsule RxNorm: 380193 Take 2 Capsule(s) Oral BID 11/18/19 023 Inactive mirtazapine 15 mg tablet RxNorm: 325472 Take 1 Tablet(s) Oral QHS every night at bedtime 11/18/19 023 Inactive aspirin-acetaminoph en-caffeine 250 mg-250 mg-65 mg tablet RxNorm: 208881 Take 2 Tablet(s) Oral QD as needed 11/18/19 023 Inactive escitalopram 10 mg tablet RxNorm: 417209 Take 1 Tablet(s) Oral QD 11/18/19 023 Inactive Medication Administered No Medication Administered data Immunizations Vaccine Codes Dose Date Status Influenza CVX: 205 1.0 04/06/2022 Covid-19 ([employer] mR NA, LNP-S, PF, 30 mcg/0.3 mL [...] Summary Completed 09/05/2023 Appointment: Aida Sr WPtel: [address] [place], [place] [id number] [place] F/U 07/23/2023 Appointment: Aida Sr WPtel: [address] [place], [place] [id number] [place] F/U 06/25/2023 Appointment: Bam Frey: [address] [place], [place] [phone] [place] SDV 01/22/2023 Appointment: Aida Sr WPtel: [address] [place] [address] [address] [id number] NPAWV 11/20/2022 Referral: General Psychiatrist Referral Patient/Family Scheduling Appointment Referral: [facility] WPtel: [address], [address] [id number] Referral Order Note Incomplete Instructions Comment Date Elderly female residing in [facility] assisted living at [facility]. PMHx: dementia, cluster B personality traits, depression, hypothyroidism, HTN, anxiety, suicidal ideationsPOLST: FULL CODEFred Anatoly-spouse, Uzza: -therapist: weekly calls usually on :1 visits 3 times weekly 01/28/2024
--- OUTSIDE RECORDS SUMMARY | 2024-09-10 17:22 | XMS_ITS | CCD ---
Author Organization Unknown Care Team Providers Care Activities Aide Name Role Phone Aida Sr CNP Primary Care Provider Unavaila ble Aida Sr CNP Chronic Care Management Unavai lable Summary Purpose DataExchange Insurance Providers Payer name Policy type / Coverage type Covered constitution party ID Effective Begin Date Effective End Date [email or web address] Commercial Insurance [id number] Unknown Family history Runs in the family Diagnosis Age At Onset No Known Diseases N/A Social History Social History Element Codes Description Effec tive Dates Marital status Unknown 01/28/2024 Living arrangements Unknown Memory Care 01/28/[address]: 260335195 Never smoker 01/[address]: 907633243 No Alcohol Consum ption 01/28/2024 Sexually Active? [...] Fill Instructions memantine 5 mg tablet RxNorm: 355240 TAKE ONE-HALF TABLET (2.5MG) BY MOUTH TWICE DAILY 06/23/20 24 049 Active REFILL REQUEST FOR CYCLE THAT BEGINS 07/17, THANK YOU risperidone 0.5 mg tablet RxNorm: 196567 Take 1 Tablet(s) Oral QAM every morning 03/14/20 24 024 Inactive risperidone 1 mg tablet RxNorm: 686728 Take 1 Tablet(s) Oral HS at bed time 02/22/20 24 024 Inactive acetaminophen 500 mg tablet RxNorm: 855375 Take 2 Tablet(s) Oral TID as needed 02/22/20 24 No Stop Date Active acetaminophen 500 mg tablet RxNorm: 954678 Take 2 Tablet(s) Oral TID as needed 02/22/20 24 024 Inactive sertraline 100 mg tablet RxNorm: 718919 Take 1 Tablet(s) Oral QD Take w/ 50mg tablet 01/27/20 24 025 Active sertraline 50 mg tablet RxNorm: 109092 Take 1 Tablet(s) Oral QD Take w/ 100mg tablet 01/27/20 24 025 Active acetaminophen 500 mg tablet RxNorm: 890366 Take 2 Tablet(s) Oral TID as needed 01/27/20 24 024 Inactive amlodipine 5 mg tablet RxNorm: 720886 Take 1 Tablet(s) Oral QAM every morning 01/09/20 24 048 Active REFILL REQUEST FOR CYCLE THAT BEGINS 01/30, THANK YOU! levothyroxine 50 mcg tablet RxNorm: 480874 Take 1 Tablet(s) Oral QD BEFORE BREAKFAST 01/09/20 24 048 Active REFILL REQUEST FOR CYCLE THAT BEGINS 01/30, THANK YOU! cholecalciferol (vitamin D3) 50 mcg (2,000 unit) tablet RxNorm: 311134 Take 1 Tablet(s) Oral QAM every morning 01/09/20 24 048 Active REFILL REQUEST FOR CYCLE THAT BEGINS 01/30, THANK YOU! risperidone 0.5 mg tablet RxNorm: 121427 Take 1 Tablet(s) Oral BID 01/09/20 24 024 Inactive REFILL REQUEST FOR CYCLE THAT BEGINS 01/30, THANK YOU! sertraline 50 mg tablet RxNorm: 048713 TAKE 1 TABLET BY MOUTH ONCE DAILY. TAKE ALONG WITH 100 MG TABLET DAILY FOR A TOTAL DOSE OF 150 MG 01/09/20 24 024 Inactive REFILL REQUEST FOR CYCLE THAT BEGINS 01/30, THANK YOU! risperidone 0.5 mg tablet RxNorm: 861357 Take 1 Tablet(s) Oral BID 01/07/20 24 024 Inactive levofloxacin 500 mg tablet RxNorm: 873348 Take 1 Tablet(s) Oral QD 12/31/19 24 024 Inactive acetaminophen 500 mg tablet RxNorm: 330020 Take 2 Tablet(s) Oral TID 12/31/19 24 024 Inactive levofloxacin 500 mg tablet RxNorm: 174831 Take 1 Tablet(s) Oral QD 12/31/19 24 024 Inactive divalproex ER 250 mg tablet,extended release 24 hr RxNorm: 2495531 TAKE 1 TABLET BY MOUTH AT BEDTIME HAZARDOUS DRUG-DOUBLE GLOVE 10/21/19 24 048 Active CYCLE FILL REFILL REQUEST FOR CYCLE FILL THAT STARTS 11/08/2023. risperidone 1 mg tablet RxNorm: 726027 Take 1 Tablet(s) Oral BID 10/21/19 24 024 Inactive CYCLE FILL REFILL REQUEST FOR CYCLE FILL THAT STARTS 11/08/2023. Senexon-S 8.6 mg-50 mg tablet RxNorm: 2721856 Take 1 Tablet(s) Oral BID as needed 09/13/19 24 025 Inactive acetaminophen 500 mg tablet RxNorm: 693046 Take 2 Tablet(s) Oral BID as needed 09/13/19 24 024 Inactive Tylenol Extra Strength 500 mg tablet RxNorm: 061900 Take 2 Tablet(s) Oral BID as needed 09/13/19 24 024 Inactive trazodone 50 mg tablet RxNorm: 412063 Take 1 Tablet(s) Oral QHS every night at bedtime 09/13/19 24 024 Inactive quetiapine 100 mg tablet RxNorm: 878077 Take 1.5 Tablet(s) Oral HS at bed time 09/13/19 24 024 Inactive sertraline 100 mg tablet RxNorm: 215656 Take 1.5 Tablet(s) Oral QD 09/13/19 24 Inactive Pain Reliever Plus 250 mg-250 mg-65 mg tablet RxNorm: 821944 Take 2 Tablet(s) Oral QD as needed 09/13/19 24 Inactive sertraline 100 mg tablet RxNorm: 776706 Take 1 Tablet(s) Oral QD 07/29/19 Inactive Please authorize cycle refill. Thanks. acetaminophen 500 mg tablet RxNorm: 076562 Take 2 Tablet(s) Oral BID as needed 07/20/19 24 Inactive acetaminophen 500 mg tablet RxNorm: 030811 Take 2 Tablet(s) Oral BID as needed 07/20/19 24 Inactive sertraline 100 mg tablet RxNorm: 365267 Take 1 Tablet(s) Oral QD 07/13/19 Inactive donepezil 5 mg tablet RxNorm: 788603 TAKE ONE-HALF TABLET (2.5MG) BY MOUTH ONCE DAILY 07/05/20 Inactive Cycle refill request. Cycle restarts (07/19/23). risperidone 1 mg tablet RxNorm: 958073 Take 1 Tablet(s) Oral HS at bed time 06/25/20 024 Inactive trazodone 50 mg tablet RxNorm: 684326 Take 1 Tablet(s) Oral QHS every night at bedtime as needed 06/25/20 23 024 Inactive quetiapine 25 mg tablet RxNorm: 423796 Take 1 Tablet(s) Oral Q4H every four hours as needed 06/25/20 23 024 Inactive Senna-S 8.6 mg-50 mg tablet RxNorm: 364164 Take 1 Tablet(s) Oral BID as needed 06/25/20 23 023 Inactive trazodone 50 mg tablet RxNorm: 268003 Take 1 Tablet(s) Oral QHS every night at bedtime as needed 06/25/20 23 023 Inactive Senna-S 8.6 mg-50 mg tablet RxNorm: 391129 Take 1 Tablet(s) Oral BID as needed 06/25/20 024 Inactive acetaminophen 500 mg tablet RxNorm: 024642 Take 2 Tablet(s) Oral BID as needed 06/18/20 024 Inactive acetaminophen 500 mg tablet RxNorm: 911683 Take 2 Tablet(s) Oral BID as needed 06/18/20 023 Inactive Excedrin Extra Strength 250 mg-250 mg-65 mg tablet RxNorm: 613218 Take 2 Tablet(s) Oral QD as needed 06/18/20 023 Inactive Excedrin Extra Strength 250 mg-250 mg-65 mg tablet RxNorm: 582685 Take 2 Tablet(s) Oral QD as needed 06/18/20 024 Inactive risperidone 1 mg tablet RxNorm: 926410 Take 1 Tablet(s) Oral BID 06/04/20 023 Inactive quetiapine 25 mg tablet RxNorm: 864596 Take 1 Tablet(s) Oral BID as needed 06/04/20 023 Inactive trazodone 50 mg tablet RxNorm: 824385 Take 1 Tablet(s) Oral QHS every night at bedtime 06/04/20 023 Inactive donepezil 10 mg tablet RxNorm: 305957 Take 1 Tablet(s) Oral QD 06/04/20 024 Inactive risperidone 1 mg tablet RxNorm: 750594 Take 1 Tablet(s) Oral BID as needed 06/04/20 023 Inactive Senexon-S 8.6 mg-50 mg tablet RxNorm: 9850632 Take 1 Tablet(s) Oral BID 06/03/20 023 Inactive Please authorize quantity 90 day supply with PRN refills for assisted living patient. Their cycle restarts 06/14/23. Thank you! memantine 5 mg tablet RxNorm: 032972 TAKE ONE-HALF TABLET (2.5MG) BY MOUTH TWICE DAILY 06/03/20 23 023 Inactive Please authorize quantity 90 day supply with PRN refills for assisted living patient. Their cycle restarts 06/14/23. Thank you! divalproex 125 mg capsule,delayed release sprinkle RxNorm: 6950755 TAKE 4 CAPSULES (500MG) BY MOUTH AT BEDTIME 06/03/20 024 Inactive Please authorize quantity 90 day supply with PRN refills for assisted living patient. Their cycle restarts 06/14/23. Thank you! sertraline 50 mg tablet RxNorm: 039405 Take 1 Tablet(s) Oral QD 06/03/20 024 Inactive Please authorize quantity 90 day supply with PRN refills for assisted living patient. Their cycle restarts 06/14/23. Thank you! naproxen 500 mg tablet RxNorm: 282732 Take 1 Tablet(s) Oral BID 01/23/20 023 Inactive naproxen 500 mg tablet RxNorm: 956574 Take 1 Tablet(s) Oral BID 01/23/20 023 Inactive naproxen 500 mg tablet RxNorm: 421309 Take 1 Tablet(s) Oral BID 01/23/20 023 Inactive mirtazapine 15 mg tablet RxNorm: 936854 Take 1 Tablet(s) Oral HS at bed time 01/01/20 023 Inactive CYCLE FILL REQUEST FOR CYCLE THAT STARTS 01/04/2023 escitalopram 10 mg tablet RxNorm: 719610 Take 1 Tablet(s) Oral QAM every morning 12/14/19 023 Inactive Cycle refill request. Cycle restarts (01/04/23). cholecalciferol (vitamin D3) 50 mcg (2,000 unit) tablet RxNorm: 230033 Take 1 Tablet(s) Oral QAM every morning 12/14/19 23 023 Inactive Cycle refill request. Cycle restarts (01/04/23). melatonin 10 mg sublingual tablet RxNorm: 7610600 TAKE 1 TABLET BY MOUTH AT BEDTIME NOTE DOSAGE/STRENGTH* 12/14/19 023 Inactive Cycle refill request. Cycle restarts (01/04/23). rivastigmine 1.5 mg capsule RxNorm: 141557 Take 1 Capsule(s) Oral BID 12/14/19 23 023 Inactive Cycle refill request. Cycle restarts (01/04/23). quetiapine 100 mg tablet RxNorm: 615168 Take 1 Tablet(s) Oral HS at bed time 12/14/19 23 023 Inactive Cycle refill request. Cycle restarts (01/04/23). levothyroxine 50 mcg tablet RxNorm: 139705 TAKE 1 TABLET BY MOUTH ONCE DAILY BEFORE BREAKFAST 12/14/19 23 023 Inactive Cycle refill request. Cycle restarts (01/04/23). amlodipine 5 mg tablet RxNorm: 556991 Take 1 Tablet(s) Oral QAM every morning 12/14/19 23 023 Inactive Cycle refill request. Cycle restarts (01/04/23). buspirone 15 mg tablet RxNorm: 191228 Take 1 Tablet(s) Oral BID 12/14/19 23 023 Inactive Cycle refill request. Cycle restarts (01/04/23). amitriptyline 10 mg tablet RxNorm: 411742 Take 1 Tablet(s) Oral HS at bed time 12/14/19 23 023 Inactive Cycle refill request. Cycle restarts (01/04/23). levofloxacin 500 mg tablet RxNorm: 647435 Take 1 Tablet(s) Oral QD 11/24/19 23 023 Inactive levofloxacin 500 mg tablet RxNorm: 264954 Take 1 Tablet(s) Oral QD 11/24/19 23 023 Inactive levothyroxine 50 mcg tablet RxNorm: 268979 Take 1 Tablet(s) Oral QD before Breakfast 11/18/19 23 023 Inactive amitriptyline 10 mg tablet RxNorm: 602861 Take 1 Tablet(s) Oral QHS every night at bedtime 11/18/19 23 023 Inactive acetaminophen 500 mg tablet RxNorm: 167676 2 Tablet(s) Oral TID as needed 11/18/19 23 023 Inactive amlodipine 5 mg tablet RxNorm: 300504 Take 1 Tablet(s) Oral QAM every morning 11/18/19 23 023 Inactive melatonin 5 mg tablet RxNorm: 897075 Give 1 Tablet(s) Oral QHS every night at bedtime 11/18/19 023 Inactive buspirone 15 mg tablet RxNorm: 101114 Take 1 Tablet(s) Oral BID 11/18/19 023 Inactive Seroquel 25 mg tablet RxNorm: 845024 Take 1 Tablet(s) Oral QHS every night at bedtime 11/18/19 023 Inactive cholecalciferol (vitamin D3) 50 mcg (2,000 unit) tablet RxNorm: 155014 Take 1 Tablet(s) Oral QD 11/18/19 023 Inactive rivastigmine 1.5 mg capsule RxNorm: 297797 Take 2 Capsule(s) Oral BID 11/18/19 023 Inactive mirtazapine 15 mg tablet RxNorm: 489063 Take 1 Tablet(s) Oral QHS every night at bedtime 11/18/19 023 Inactive aspirin-acetaminoph en-caffeine 250 mg-250 mg-65 mg tablet RxNorm: 356811 Take 2 Tablet(s) Oral QD as needed 11/18/19 023 Inactive escitalopram 10 mg tablet RxNorm: 459031 Take 1 Tablet(s) Oral QD 11/18/19 023 Inactive Medication Administered No Medication Administered data Immunizations Vaccine Codes Dose Date Status Influenza CVX: 205 1.0 04/06/2022 Covid-19 (KROG[facility] mR NA, LNP-S, PF, 30 mcg/0.3 mL [...] WPtel: [address], [address] [id number] Referral Order Note Incomplete Instructions Comment Date Elderly female residing in [facility] assisted living at [facility]. PMHx: dementia, cluster B personality traits, depression, hypothyroidism, HTN, anxiety, suicidal ideationsPOLST: FULL CODEFred Anatoly-spouse, Cydr: May/DecLisa-therapist: weekly calls usually on :1 visits 3 times weekly 01/28/2024
--- OUTSIDE RECORDS SUMMARY | 2024-09-10 17:23 | XMS_ITS | Encounter Summary ---
Author Organization [facility] Address [address] [place] [address] Care Team Providers Care Glaciologist Name Role Phone Yaneth Reyes MD Primary Care P rovider [place], Subacute Unit [address]. Unavailable Yaneth Reyes MD Unavailable Unknown, Provider Primary Care Provider Unavaila ble Provider, No Primary Primary Care Provider Unava ilable Yaneth Reyes MD Unavailable Yaneth Reyes MD Primary Care P rovider Encounter Details Date Type Department Care Team (Late st Contact Info) Description 05/01/[address] [facility] [address] [place] [address] Brenda Lee MD [address] [facility] [place] [address] Social History Tobacco Use Types Packs/Day Years Used Date Smoking Tobacco: Never Smokeless Tobacco: Never Alcohol Use Standard Drinks/Week Comments Yes 0 (1 standard drink = 0.6 oz pur e alcohol) RARE Comments No Sex and Gender Information Value Date Recorded Sex Assigned at Not on file Legal Sex Female 10:54 PM [employer] Gender Identity Not on file Sexual Orientation Not on file Occupation Industry Job Start Date Job End Date retired Not on file Not on file Not on file documented as of this encounter Functional Status * Are you deaf or do you have serious difficulty hearing? Answer Date of Assessment Author No 04/24/2016 6:34 PM Demetrice Ca RN * Are you blind or do you have serious difficulty seeing, even when wearing glasses? Answer Date of Assessment Author No 04/24/2016 6:34 PM Demetrice Ca RN * Do you have serious difficulty walking or climbing stairs? Answer Date of Assessment Author No 04/24/2016 10:44 PM JOSET Racheal Iglesias RN * Do you have difficulty dressing or bathing? Answer Date of Assessment Author No 04/24/2016 10:44 PM JOSET Racheal Iglesais, RN * Do you have difficulty doing [...] Entry Date Author No 04/24/2016 6:34 PM Demetrice Ca RN documented in this encounter Miscellaneous Notes * [facility] Note - Brenda Lee MD - 05/04/2016 12:00 AM CDT PAGE 2 [facility] - DISCHARGE REPORT [facility] - SUB ACUTE PROGRAM [address] [place] [address] NAME: Gertrudis Ledbetter [facility] SCHMR#: [id number] DATE: 05/04/2016 DR: Brenda Lee MD [facility] [place] DISCHARGE DIAGNOSES: 1. Deconditioning requiring rehabilitation. 2. Takotsubo cardiomyopathy. 3. Chronic nonproductive cough. 4. Acute situational depression. 5. Hypothyroidism. 6. Hypertension. 7. Osteoporosis. 8. Vulvodynia. MEDICATIONS ON DISCHARGE 1. Senna-S prn. 2. Estrace twice weekly. 3. Elavil 25 mg nightly. 4. Caltrate with vitamin D. 5. Toprol XL 12.5 mg daily. 6. Vitamin D3 5,000 units daily. 7. Ocuvite daily. 8. Ecotrin 81 mg daily. 9. Fish oil one capsule daily. 10. Lasix 20 mg bid. 11. Synthroid 75 mcg daily. 12. Biotin prn. 13. Tylenol prn. 14. Ambien 2.5 mg nightly prn. 15. Cottle nasal spray prn. 16. Mouthkote prn. SUBACUTE SUMMARY: The patient was admitted for rehabilitation following hospitalization. She was seen by physical therapy and occupational therapy for generalized deconditioning following hospitalization for acute cardiomyopathy. She had no paroxysmal nocturnal dyspnea, orthopnea or other cardiopulmonary symptoms. She did well with ongoing therapy. She was felt to be independent without the use of an assistive device. She is appropriate for discharge on today's date. Her weight was down a total of 6 pounds from the time of her admission with a discharge weight of 142 pounds. She was continued on her diuretics. Zestril was abandoned because of exacerbation of nonproductive cough. The other medications which were new including Toprol XL and bid dosing of Lasix were continued per Cardiology recommendations. At the time of this dictation, her blood pressure is 113/64, pulse 68, temperature 98.1. Heart is regular. Lungs are clear bilaterally. Abdomen is soft, nontender, nondistended with normal bowel sounds. Extremities show no edema. Skin is warm and dry without concerning lesions. Neurological exam shows no focal deficits. Mood is cheerful. Plan for follow-up is with her primary provider, Dr. Reyes, on May 15. She will see Cardiology for follow-up as scheduled. She is independent with activity. He is discharging on a cardiac diet. She has indicated full code status here. Brenda Lee MD lbm* A ET: 05/05/2016 07:37 A Doc #: [id number] cc: Yaneth Reyes MD * [facility] Note - Brenda Lee MD - 05/01/2016 12:00 AM CDT [facility]BC - HISTORY & PHYSICAL INDICATION FOR ADMISSION: Rehabilitation following hospitalization for acute cardiomyopathy thoughtto be secondary to stress, possible takotsubo cardiomyopathy. HISTORY OF PRESENT ILLNESS: I have reviewed notations regarding recent hospitalization including progress notes, mgmt consultant notes and admission data from Dr. Solis. There is no dictated discharge summary. The patient is a 80-year-old primary patient of Dr. Yaneth Reyes'manav who recently was treated for a urinary tract infection. She also was attending a . She was to sing at the . She has some underlying stress. She noted that she became symptomatic with significant fatigue prior to the as well as some increased fatigue during and shortly after the . She then developed jaw pain as she and her drove home from the . She did call her clinic and was advised to present to the Emergency Department. She was admitted through the Emergency Department where her troponin was found to be elevated at 5.5. She went to the lab aide on the night of admission. She was found to have no significant coronaryartery disease. LV gram did show likely stress cardiomyopathy with hyperdynamic base of the left ventricle with probable left ventricular outflow obstruction, and an intraaortic balloon pump was placed during the angiogram. This was removed two days later on the . She then had a stable blood pressure after weaning off Blayne-Synephrine. She had no evidence of infection. Empiric antibiotics were abandoned following negative cultures. The working diagnosis was takotsubo cardiomyopathy in the setting of stress with temporary cardiogenic shock. She was placed on a beta marisel, KARIN inhibitor and low dose diuretic therapy with recommendations for a Cardiology follow-up in two to three months with repeat echocardiogram at that time. Due to deconditioning, shortness of breath with activity and advanced age, she and her family did request a rehabilitation stay here prior to discharging to her private home. Currently Gertrudis does acknowledge that she continues to have dyspnea with activity, although this has greatly improved. She is able to ambulate hallway distances with standby assist from nursing staff and therapy staff. She is hopeful that she will be able to continue with her rehabilitation efforts but discharge toward the end of this week. She has had some low grade temperatures here between 99.9 up to a T-max of 100.8. She does have a dry cough but it has been consistently nonproductive. That did initiate in the hospital and continuesnow. She is not having any postnasal drip of sinus drainage. She does not have any respiratory symptoms. She denies any bowel or bladder symptoms. She has not had any evidence of skin breakdown. Gertrudis does acknowledge that she has difficulty with anxiety and has talked to her family physicianabout initiating psychotherapy appointments. She notes she does have a supportive family who are inagreement with that. She is otherwise without new concerns or complaints on a complete review of systems today with all systems reviewed with pertinent positives as listed in the HPI. PAST MEDICAL HISTORY: 1. Acute situational depression. 2. Dysplastic nevi of the left thigh. 3. Abdominal hernia. 4. Hypertension. 5. Hypothyroidism. 6. Osteoporosis. 7. 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 8. Urinary tract infection. 9. Vulvodynia diagnosed at the [facility] treated with Elavil. SURGICAL HISTORY: 1. Left inguinal hernia repair in 1999. 2. Bladder surgery at the [facility] in 1986. 3. Cholecystectomy at the [facility]. 4. Total abdominal hysterectomy at the [facility]. 5. Vein stripping on the right. 6. Laser surgery for a detached retina at the [facility]. 7. Arthroscopy of the shoulder. 8. Cataract removal bilaterally. 9. Paravaginal defect repair with open approach in 1998 with repeat procedure in 2000 with TVT sling, rectocele and cystocele repair at that time. 10. Implantation of mesh for incisional ventral hernia repair in the lower abdominal hernia with [place]-Samuel performed at the [facility] by Dr. Flowers in 2003. ALLERGIES: SULFA CAUSED NAUSEA AND VOMITING. SOCIAL HISTORY: She is and lives with her , Fercho. She has three adult children; one of whom is a nurse in [place], [place]. She is retired. She is a never smoker and does not drink alcohol routinely. FAMILY HISTORY: Family history is reviewed with no findings pertinent to the short stay admission. She has two siblings with mitral valve prolapse. CURRENT MEDICATIONS: 1. Biotene one spray q2h prn. 2. Caltrate with vitamin D. 3. Aspirin 81 daily. 4. Elavil 25 mg nightly. 5. Estrace 1 gram vaginally twice weekly. 6. Fish oil one capsule daily. 7. Lasix 20 bid. 8. Mouthkote two sprays q6h prn. 9. Cottle nasal spray. 10. Ocuvite one tablet daily. 11. Senna-S bid prn and one tab twice daily scheduled. 12. Synthroid 75 mcg daily. 13. Toprol XL 12.5 mg daily. 14. Vitamin D. 15. Zestril 2.5 daily. PHYSICAL EXAMINATION: On examination, her blood pressure is 124/73 with a pulse of 66, temperature 99.9, weight 146 pounds which is down 5 pounds since admission. Oropharynx is clear. Neck is withoutadenopathy, bruits, thyromegaly. Heart is regular without murmurs, rubs, gallops. Lungs are clear bilaterally. Abdomen is soft, nontender, nondistended with normal bowel sounds. Extremities show no pitting edema. Skin is warm and dry without concerning lesions. Neurological exam shows no focal strength or sensory deficits. Mood is euthymic. ASSESSMENT AND PLAN: 1. Acute stress cardiomyopathy. She will continue Lasix and Toprol. We will continue daily weights as well as a cardiac diet. Follow-up should be in two months with repeat echocardiogram at that time. 2. Cough. She will discontinue Zestril due to her cough which developed coincident with initiation of Zestril. 3. Vulvodynia. She will continue Elavil for this diagnosis. 4. Insomnia. She will continue prn Ambien. She is aware of potential side effects of the medication. 5. Disposition. She anticipates discharge back to her private home once she has met therapeutic goals. 6. Depression with anxiety. She wishes to initiate counseling sessions once she has discharged fromour facility. She does not believe she wishes to utilize medications at this time. MD gunjan Fowler P Doc #: [id number] cc: Brenda Lee MD documented in this encounter Plan of Treatment [...] documented as of this encounter Care Teams Glaciologist Relationship Specialty Start Date End Date Yaneth Reyes MD PCP - General 01/12/07 03/07/20 Unknown, [place] [address] PCP - General 03/08/20 04/06/20 Provider, [place] [address] PCP - General 04/07/20 04/15/20 Yaneth Reyes MD [address] [place] [address] [phone] PCP - General Family Medicine 04/16/20 [place], Subacute [address] [place] [address] 08/06/17 Yaneth Reyes MD [address] [place] [address] [phone] 08/06/17 04/18/20 [place] [address] Family Medicine 04/10/20 04/18/20 documented as of this encounter Additional Source Comments PLEASE NOTE: Replies to this message will not be received.[facility]
--- OUTSIDE RECORDS SUMMARY | 2024-09-10 17:23 | XMS_ITS | CCD ---
Author Name Aida Sr CNP Address [address] [place] [address] [facility] Phone Care Team Providers Care Announcer Name Role Phone Aida Sr CNP Primary Care Provider Unavaila ble Aida Sr CNP Chronic Care Management Unavai lable Summary Purpose DataExchange Insurance Providers Payer name Policy type / Coverage type Covered republican ID Effective Begin Date Effective End Date [employer] Commercial Insurance [id number] Unknown Family History Family History data not [...] 250 mg tablet,extended release 24 hr RxNorm: 8562486 TAKE 1 TABLET BY MOUTH AT BEDTIME HAZARDOUS DRUG-DOUBLE GLOVE 10/21/19 24 048 Active CYCLE FILL REFILL REQUEST FOR CYCLE FILL THAT STARTS 11/08/2023. risperidone 1 mg tablet RxNorm: 017435 Take 1 Tablet(s) Oral BID 10/21/19 24 024 Inactive CYCLE FILL REFILL REQUEST FOR CYCLE FILL THAT STARTS 11/08/2023. Tylenol Extra Strength 500 mg tablet RxNorm: 102652 Take 2 Tablet(s) Oral BID as needed 09/13/19 24 024 Inactive trazodone 50 mg tablet RxNorm: 039761 Take 1 Tablet(s) Oral QHS every night at bedtime 09/13/19 24 024 Inactive Senexon-S 8.6 mg-50 mg tablet RxNorm: 1265182 Take 1 Tablet(s) Oral BID as needed 09/13/19 24 025 Inactive sertraline 100 mg tablet RxNorm: 991671 Take 1.5 Tablet(s) Oral QD 09/13/19 24 Inactive Pain Reliever Plus 250 mg-250 mg-65 mg tablet RxNorm: 253611 Take 2 Tablet(s) Oral QD as needed 09/13/19 24 Inactive acetaminophen 500 mg tablet RxNorm: 749051 Take 2 Tablet(s) Oral BID as needed 09/13/19 24 024 Inactive quetiapine 100 mg tablet RxNorm: 115624 Take 1.5 Tablet(s) Oral HS at bed time 09/13/19 24 024 Inactive sertraline 100 mg tablet RxNorm: 669210 Take 1 Tablet(s) Oral QD 07/29/19 24 024 Inactive Please authorize cycle refill. Thanks. acetaminophen 500 mg tablet RxNorm: 182891 Take 2 Tablet(s) Oral BID as needed 07/20/19 24 Inactive acetaminophen 500 mg tablet RxNorm: 758512 Take 2 Tablet(s) Oral BID as needed 07/20/19 24 024 Inactive sertraline 100 mg tablet RxNorm: 148449 Take 1 Tablet(s) Oral QD 07/13/19 24 024 Inactive donepezil 5 mg tablet RxNorm: 882061 TAKE ONE-HALF TABLET (2.5MG) BY MOUTH ONCE DAILY 07/05/20 23 023 Inactive Cycle refill request. Cycle restarts (07/19/23). risperidone 1 mg tablet RxNorm: 527083 Take 1 Tablet(s) Oral HS at bed time 06/25/20 024 Inactive trazodone 50 mg tablet RxNorm: 642820 Take 1 Tablet(s) Oral QHS every night at bedtime as needed 06/25/20 23 024 Inactive quetiapine 25 mg tablet RxNorm: 862578 Take 1 Tablet(s) Oral Q4H every four hours as needed 06/25/20 23 024 Inactive Senna-S 8.6 mg-50 mg tablet RxNorm: 131082 Take 1 Tablet(s) Oral BID as needed 06/25/20 023 Inactive trazodone 50 mg tablet RxNorm: 212994 Take 1 Tablet(s) Oral QHS every night at bedtime as needed 06/25/20 023 Inactive Senna-S 8.6 mg-50 mg tablet RxNorm: 281122 Take 1 Tablet(s) Oral BID as needed 06/25/20 024 Inactive acetaminophen 500 mg tablet RxNorm: 464646 Take 2 Tablet(s) Oral BID as needed 06/18/20 024 Inactive acetaminophen 500 mg tablet RxNorm: 231178 Take 2 Tablet(s) Oral BID as needed 06/18/20 023 Inactive Excedrin Extra Strength 250 mg-250 mg-65 mg tablet RxNorm: 927253 Take 2 Tablet(s) Oral QD as needed 06/18/20 023 Inactive Excedrin Extra Strength 250 mg-250 mg-65 mg tablet RxNorm: 869721 Take 2 Tablet(s) Oral QD as needed 06/18/20 024 Inactive risperidone 1 mg tablet RxNorm: 561231 Take 1 Tablet(s) Oral BID 06/04/20 023 Inactive quetiapine 25 mg tablet RxNorm: 394892 Take 1 Tablet(s) Oral BID as needed 06/04/20 023 Inactive trazodone 50 mg tablet RxNorm: 105036 Take 1 Tablet(s) Oral QHS every night at bedtime 06/04/20 023 Inactive donepezil 10 mg tablet RxNorm: 983024 Take 1 Tablet(s) Oral QD 06/04/20 024 Inactive risperidone 1 mg tablet RxNorm: 975695 Take 1 Tablet(s) Oral BID as needed 06/04/20 023 Inactive Senexon-S 8.6 mg-50 mg tablet RxNorm: 3781551 Take 1 Tablet(s) Oral BID 06/03/20 023 Inactive Please authorize quantity 90 day supply with PRN refills for assisted living patient. Their cycle restarts 06/14/23. Thank you! memantine 5 mg tablet RxNorm: 833269 TAKE ONE-HALF TABLET (2.5MG) BY MOUTH TWICE DAILY 06/03/20 023 Inactive Please authorize quantity 90 day supply with PRN refills for assisted living patient. Their cycle restarts 06/14/23. Thank you! divalproex 125 mg capsule,delayed release sprinkle RxNorm: 2170786 TAKE 4 CAPSULES (500MG) BY MOUTH AT BEDTIME 06/03/20 024 Inactive Please authorize quantity 90 day supply with PRN refills for assisted living patient. Their cycle restarts 06/14/23. Thank you! sertraline 50 mg tablet RxNorm: 376651 Take 1 Tablet(s) Oral QD 06/03/20 024 Inactive Please authorize quantity 90 day supply with PRN refills for assisted living patient. Their cycle restarts 06/14/23. Thank you! naproxen 500 mg tablet RxNorm: 809687 Take 1 Tablet(s) Oral BID 01/23/20 23 023 Inactive naproxen 500 mg tablet RxNorm: 860534 Take 1 Tablet(s) Oral BID 01/23/20 23 023 Inactive naproxen 500 mg tablet RxNorm: 058862 Take 1 Tablet(s) Oral BID 01/23/20 23 023 Inactive mirtazapine 15 mg tablet RxNorm: 634386 Take 1 Tablet(s) Oral HS at bed time 01/01/20 23 023 Inactive CYCLE FILL REQUEST FOR CYCLE THAT STARTS 01/04/2023 escitalopram 10 mg tablet RxNorm: 021922 Take 1 Tablet(s) Oral QAM every morning 12/14/19 23 023 Inactive Cycle refill request. Cycle restarts (01/04/23). cholecalciferol (vitamin D3) 50 mcg (2,000 unit) tablet RxNorm: 763977 Take 1 Tablet(s) Oral QAM every morning 12/14/19 23 023 Inactive Cycle refill request. Cycle restarts (01/04/23). melatonin 10 mg sublingual tablet RxNorm: 4620394 TAKE 1 TABLET BY MOUTH AT BEDTIME NOTE DOSAGE/STRENGTH* 12/14/19 23 023 Inactive Cycle refill request. Cycle restarts (01/04/23). rivastigmine 1.5 mg capsule RxNorm: 885751 Take 1 Capsule(s) Oral BID 12/14/19 23 023 Inactive Cycle refill request. Cycle restarts (01/04/23). quetiapine 100 mg tablet RxNorm: 689435 Take 1 Tablet(s) Oral HS at bed time 12/14/19 23 023 Inactive Cycle refill request. Cycle restarts (01/04/23). levothyroxine 50 mcg tablet RxNorm: 396251 TAKE 1 TABLET BY MOUTH ONCE DAILY BEFORE BREAKFAST 12/14/19 23 023 Inactive Cycle refill request. Cycle restarts (01/04/23). amlodipine 5 mg tablet RxNorm: 798341 Take 1 Tablet(s) Oral QAM every morning 12/14/19 23 023 Inactive Cycle refill request. Cycle restarts (01/04/23). buspirone 15 mg tablet RxNorm: 055279 Take 1 Tablet(s) Oral BID 12/14/19 23 023 Inactive Cycle refill request. Cycle restarts (01/04/23). amitriptyline 10 mg tablet RxNorm: 053683 Take 1 Tablet(s) Oral HS at bed time 12/14/19 23 023 Inactive Cycle refill request. Cycle restarts (01/04/23). levofloxacin 500 mg tablet RxNorm: 338838 Take 1 Tablet(s) Oral QD 11/24/19 23 023 Inactive levofloxacin 500 mg tablet RxNorm: 948538 Take 1 Tablet(s) Oral QD 11/24/19 23 023 Inactive levothyroxine 50 mcg tablet RxNorm: 565907 Take 1 Tablet(s) Oral QD before Breakfast 11/18/19 23 023 Inactive amitriptyline 10 mg tablet RxNorm: 542034 Take 1 Tablet(s) Oral QHS every night at bedtime 11/18/19 23 023 Inactive acetaminophen 500 mg tablet RxNorm: 108003 2 Tablet(s) Oral TID as needed 11/18/19 023 Inactive amlodipine 5 mg tablet RxNorm: 320993 Take 1 Tablet(s) Oral QAM every morning 11/18/19 023 Inactive melatonin 5 mg tablet RxNorm: 029823 Give 1 Tablet(s) Oral QHS every night at bedtime 11/18/19 023 Inactive buspirone 15 mg tablet RxNorm: 135573 Take 1 Tablet(s) Oral BID 11/18/19 023 Inactive Seroquel 25 mg tablet RxNorm: 208810 Take 1 Tablet(s) Oral QHS every night at bedtime 11/18/19 023 Inactive cholecalciferol (vitamin D3) 50 mcg (2,000 unit) tablet RxNorm: 455182 Take 1 Tablet(s) Oral QD 11/18/19 023 Inactive rivastigmine 1.5 mg capsule RxNorm: 125723 Take 2 Capsule(s) Oral BID 11/18/19 023 Inactive mirtazapine 15 mg tablet RxNorm: 437326 Take 1 Tablet(s) Oral QHS every night at bedtime 11/18/19 023 Inactive aspirin-acetaminoph en-caffeine 250 mg-250 mg-65 mg tablet RxNorm: 128625 Take 2 Tablet(s) Oral QD as needed 11/18/19 023 Inactive escitalopram 10 mg tablet RxNorm: 659467 Take 1 Tablet(s) Oral QD 11/18/19 023 Inactive Medication Administered No Medication Administered data Immunizations Vaccine Codes Dose Date Status Influenza CVX: 205 1.0 04/06/2022 Covid-19 (Droplr mR NA, LNP-S, PF, 30 mcg/0.3 mL [...] Code Result Date Service Location Urine Culture 26685 URINE CULTURE 29845-3 SEE RESU LTS BELOW 024 Unknown CBC with Platelets PIM265 WBC COUNT (AUTOMATED) 6.1 10e3/uL 024 Unknown CBC with Platelets ISU647 RBC COUNT 789-8 3.84 10e6/uL 024 Unknown CBC with Platelets BOZ379 Hemoglobin 718-7 12.5 g/dL 024 Unknown CBC with Platelets HRE045 Hematocrit 4544-3 37.1 % 024 Unknown CBC with Platelets OLB123 MCV 787-2 97 fL 024 Unknown CBC with Platelets JEL608 MCH 32.6 pg 024 Unknown CBC with Platelets KAV701 MCHC 33.7 g/dL 024 Unknown CBC with Platelets SQF678 RDW 12.7 % 024 Unknown CBC with Platelets PWA365 Platelet Count 777-3 227 10e3/uL 024 Unknown Comprehensive Metabolic Panel No Glucose [id number] Sodium 2951-2 138 mmol/L 024 Unknown Comprehensive Metabolic Panel No Glucose [id number] POTASSIUM ([place]) 2823-3 3.7 mmol/L 024 Unknown Comprehensive Metabolic Panel No Glucose LPUM4191 CO2 ([place]) 23 mmol/L 024 Unknown Comprehensive Metabolic Panel No Glucose [id number] ANION GAP ([place]) 12 mmol/L 024 Unknown Comprehensive Metabolic Panel No Glucose [id number] UREA NITROGEN ([place]) 10.1 mg/dL 024 Unknown Comprehensive Metabolic Panel No Glucose WHEA5487 Creatinine 2160-0 0.54 mg/dL 024 Unknown Comprehensive Metabolic Panel No Glucose NUVR2067 GFR, ESTIMATE 65278-2 89 mL/min/1.73 m2 024 Unknown Comprehensive Metabolic Panel No Glucose LEIB8905 Calcium 74203-4 9.3 mg/dL 024 Unknown Comprehensive Metabolic Panel No Glucose XFFG3190 CHLORIDE ([place]) 103 mmol/L 024 Unknown Comprehensive Metabolic Panel No Glucose [id number] Alkaline Phosphatase 70 U/L 024 Unknown Comprehensive Metabolic Panel No Glucose NHWM8814 AST 29 U/L 024 Unknown Comprehensive Metabolic Panel No Glucose IAHR9786 ALT 29 U/L 024 Unknown Comprehensive Metabolic Panel No Glucose DXQG9830 PROTEIN, TOTAL 2885-2 6.6 g/dL 024 Unknown Comprehensive Metabolic Panel No Glucose HJQY3282 Albumin 1751-7 4.0 g/dL 024 Unknown Comprehensive Metabolic Panel No Glucose PXJC7095 Bilirubin Total 0.6 mg/dL 024 Unknown Glucose KSN3295 GLUCOSE ([place]) 2345-7 125 mg/dL 12/08 0 024 Unknown UA with Microscopic Reflex to Culture 50220 COLOR Light Yellow 024 Unknown UA with Microscopic Reflex to Culture 82123 Appearance Clear 024 Unknown UA with Microscopic Reflex to Culture 20908 GLUCOSE, URINE Negative mg/dL 024 Unknown UA with Microscopic Reflex to Culture 98295 BILIRUBIN, URINE Negative 024 Unknown UA with Microscopic Reflex to Culture [id number] Ketones Urine Negative mg/dL 024 Unknown UA with Microscopic Reflex to Culture [id number] Specific [place] Urine 1.012 024 Unknown UA with Microscopic Reflex to Culture 22292 BLOOD, URINE Negative 024 Unknown UA with Microscopic Reflex to Culture 53454 pH Urine 6.5 024 Unknown UA with Microscopic Reflex to Culture 45468 Protein urine Negative mg/dL 024 Unknown UA with Microscopic Reflex to Culture 60393 UROBILINOGEN IRIS Normal mg/dL 024 Unknown UA with Microscopic Reflex to Culture 80044 Nitrites Negative 024 Unknown UA with Microscopic Reflex to Culture 67283 LEUK ESTERASE Small 024 Unknown UA with Microscopic Reflex to Culture 52067 Mucus Urine Present /LPF 024 Unknown UA with Microscopic Reflex to Culture 27182 RBC Urine 1 /HPF 024 Unknown UA with Microscopic Reflex to Culture [id number] WBC Urine 05871-3 4 /HPF 024 Unknown Reason For Visit No Reason For Visit data Plan of Care Planned Activity Notes Codes Status Date Appointment: Aida Sr WPtel: [address] [place], [place] [phone] [place] F/U 09/17/2023 Appointment: Aida Sr WPtel: [address] [place], [place] [phone] [place] F/U 07/23/2023 Appointment: Aida Sr WPtel: [address] [place], [place] [phone] [place] F/U 06/25/2023 Appointment: Bam Frey: [address] [place], [place] [phone] [place] SDV 01/22/2023 Appointment: Aida Sr WPtel: [address] [place], [place] [phone] [place] NPAWV 11/20/2022 Referral: General Psychiatrist Referral Patient/Family Scheduling Appointment Referral: [facility] WPtel: [address], [address] [id number] Referral Order Note Incomplete Instructions Comment Date Elderly female residing in [facility] assisted living at [facility]. PMHx: dementia, cluster B personality traits, depression, hypothyroidism, HTN, anxiety, suicidal ideationsPOLST: FULL CODEFred Anatoly-spouse, Nqct: November/Scotty-therapist: weekly calls usually on :1 visits 3 times weekly 01/28/2024
--- OUTSIDE RECORDS SUMMARY | 2024-09-10 17:24 | XMS_ITS | Encounter Summary ---
Author Organization [facility] [facility] Address [address] [place] [address] Care Team Providers Care Construction Analyst Name Role Phone Yaneth Reyes MD Primary Care P rovider [place], Subacute Unit [facility]. Unavailable Yaneth Reyes MD Unavailable Unknown, Provider Primary Care Provider Unavaila ble Provider, No Primary Primary Care Provider Unava ilable Yaneth Reyes MD Unavailable Yaneth Reyes MD Primary Care P rovider Encounter Details Date Type Department Care Team (Late st Contact Info) Description 04/16/2016 Historical Conversion [facility] [address] [place] [address] Unknown, 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 Answer Date of Assessment Author No 09/30/2014 11:42 AM Charisma Saleh RN * Are you blind or do you have serious difficulty seeing, even when wearing glasses? Answer Date of Assessment Author No 04/21/2015 3:12 AM Cristina Kamara RN * Do you have serious difficulty walking or climbing stairs? Answer Date of Assessment Author No 04/21/2015 3:12 AM Cristina Kamara RN * Do you have difficulty dressing or bathing? Answer Date of Assessment Author No 04/21/2015 3:12 AM Cristina Kamara RN * Do you have difficulty doing errands alone such as visiting a doctor's office or shopping because of a physical, mental, or emotional condition? Answer Date of Assessment Author No 04/21/2015 3:12 AM Cristina Kamara RN documented as of this encounter Mental Status * Do you have trouble concentrating, remembering, or making decisions because of a physical, mental, or emotional condition? Answer Entry Date Author No 04/21/2015 3:12 AM Cristina Kamara RN documented in this encounter Plan of [...] documented as of this encounter Care Teams Construction Analyst Relationship Specialty Start Date End Date Yaneth Reyes MD PCP - General 01/12/07 03/07/20 Unknown, [place] [address] PCP - General 03/08/20 04/06/20 Provider, [place] [address] PCP - General 04/07/20 04/15/20 Yaneth Reyes MD [address] [place] [phone] PCP - General Family Medicine 04/16/20 [facility] [address] [place] [address] 08/06/17 Yaneth Reyes MD [address] [place] [phone] 08/06/17 04/18/20 [place] [address] Family Medicine 04/10/20 04/18/20 documented as of this encounter Additional Source Comments PLEASE NOTE: Replies to this message will not be received.[facility]
--- OUTSIDE RECORDS SUMMARY | 2024-09-10 17:24 | XMS_ITS | Encounter Summary ---
[facility] Address [address] [place] [address] Care Team Providers Care Weapons Specialist Name Role Phone Yaneth Reyes MD Primary Care P rovider [place], Subacute Unit St. Unavailable Yaneth Reyes MD Unavailable Unknown, Provider Primary Care Provider Unavaila ble Provider, No Primary Primary Care Provider Unava ilable Yaneth Reyes MD Unavailable Yaneth Reyes MD Primary Care P rovider Encounter Details Date Type Department Care Team (Late st Contact Info) Description 04/18/2016 [facility] [address] [place] [address] Social History Tobacco Use Types Packs/Day Years Used Date Smoking Tobacco: Never Smokeless Tobacco: Never Alcohol Use Standard Drinks/Week Comments Yes 0 (1 standard drink = 0.6 oz pur e alcohol) RARE Comments No Sex and Gender Information Value Date Recorded Sex Assigned at Not on file 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 [place] [address] PCP - General 03/08/20 04/06/20 Provider, No [place] [address] PCP - General 04/07/20 04/15/20 Yaneth Reyes MD [address] [place] [phone] PCP - General Family Medicine 04/16/20 [place], Subacute [address] [facility] [address] [place] [address] 08/06/17 Yaneth Reyes MD [address] [place] [phone] 08/06/17 04/18/20 Yaneth Reyes MD . [place] [address] Family Medicine 04/10/20 04/18/20 documented as of this encounter Additional Source Comments PLEASE NOTE: Replies to this message will not be received.[facility]
--- OUTSIDE RECORDS SUMMARY | 2024-09-10 17:24 | XMS_ITS | Encounter Summary ---
Author Organization [facility] [employer] [facility] Address [address] [place] [address] Care Team Providers Care Handkerchief Folder Name Role Phone Yaneth Reyes MD Primary Care P rovider [place], Subacute Unit St. Unavailable Yaneth Reyes MD Unavailable Unknown, Provider Primary Care Provider Unavaila ble Provider, No Primary Primary Care Provider Unava ilable Yaneth Reyes MD Unavailable Yaneth Reyes MD Primary Care P rovider Encounter Details Date Type Department Care Team (Late st Contact Info) Description 11/06/2015 Historical Conversion [facility] [address] 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 [address] PCP - General 03/08/20 04/06/20 Provider, [place] [address] PCP - General 04/07/20 04/15/20 Yaneth Reyes MD [address] [place] [phone] PCP - General Family Medicine 04/16/20 [place], [facility] Unit [address] [place] [address] [place] [address] 08/06/17 Yaneth Reyes MD [address] [place] [phone] 08/06/17 04/18/20 [place] [address] Family Medicine 04/10/20 04/18/20 documented as of this encounter Additional Source Comments PLEASE NOTE: Replies to this message will not be received.[facility]
[2024-09-10 18:10] LABS: Basophils Absolute Auto 0.03 K/uL (0.00-0.30); Basophils Percent Auto 0.3 % (0.0-3.0); Eosinophils Absolute Auto 0.14 K/uL (0.00-0.50); Eosinophils Percent Auto 1.5 % (0.0-7.0); Hematocrit 37.4 % (33.0-51.0); Hemoglobin* 12.7 gm/dL (12.0-16.0); Immature Granulocytes Abs Auto 0.02 K/uL (0.00-0.30); Immature Granulocytes Pct Auto 0.2 %; Lymphocytes Percent Auto 15.7 % (20-44); Mean Corpuscular HGB Conc 34 gm/dL (32-36); Mean Corpuscular Hemoglobin 32 pg (26-34); Mean Corpuscular Volume 94 fL (80-100); Monocytes Percent Auto 11.9 % (0.0-11.0); Neutrophils Absolute Auto 6.71 K/uL (1.7-7.0); Neutrophils Percent Auto 70.4 % (42.0-72.0); Platelet Count* 262 K/uL (140-440); RDW Coefficient of Variation % 12.2 % (11.5-15.5); Red Blood Count 3.97 m/uL (4.00-5.20); White Blood Count* 9.54 K/uL (4.50-11.00)
[2024-09-10 18:13] LABS: Slide Review Reflex No
[2024-09-10 18:32] LABS: Chloride* 102 mmol/L (96-114); Potassium* 3.5 mmol/L (3.6-5.1); Sodium* 137 mmol/L (135-149)
[2024-09-10 18:35] LABS: Anion Gap 11 mEq/L (7-15); Blood Urea Nitrogen* 13 mg/dL (7-30); Carbon Dioxide* 24 mmol/L (20-32); Creatinine* 0.5 mg/dL (0.5-1.5); Est. Creatinine Clearance* 32.17; Estimated Glomerular Filt Rate 90 ml/min; Glucose* 101 mg/dL (60-115)
[2024-09-10 18:36] LABS: Calcium* 8.9 mg/dL (8.4-10.6)
== END 2024-09-10 19:46 | disposition home or self-care (01) ==
PROVIDERS: Emergency Provider Student in an Organized Health Care Education/Training Program
DX: T83.098A Other mechanical complication of other urinary catheter, initial encounter (principal)
CPT/HCPCS: 51702; 36415; 80048; 85025; 99283; 99284

== ENCOUNTER 2024-09-10 19:27 | Outpatient (CLI) | payer OTHER, SELFPAY | END 2024-09-10 19:28 | disposition home or self-care (01) | LOC: AMB 09-11 11:25 | PROVIDERS: Visit Provider Student in an Organized Health Care Education/Training Program | DX: T83.9XXA Unspecified complication of genitourinary prosthetic device, implant and graft, initial encounter (principal) | CPT/HCPCS: A0425; A0428 ==

== ENCOUNTER 2024-09-16 17:57 | Emergency (ER) | payer OTHER, SELFPAY ==
[2024-09-16 18:14] VITALS: BP 131/73; PULSE 76; RESP 16; TEMP 36.6; O2SAT 93
--- NOTE | 2024-09-16 18:51 | ED.GENADULT ---
HPI - General Adult General Chief complaint: Urogenital Problems, Female Stated complaint: Urine retention Time Seen by Provider: 09/16/24 18:50 History of Present Illness HPI narrative: Pt. has been here 2 other times last week . This time she is here for urinary retention. 15cc output from her garcia since 0800 this am. Pt. has dementia. 89-year-old woman presenting to the emergency department with concern of decreasing urine output. Was seen at this facility 8 days ago and diagnosed with urinary tract infection and urinary retention. Garcia was placed. Was initiated on cefdinir for an elbow infection and urinary tract infection. Garcia was replaced on 09/10/2024 as it had not been draining again. BUN and creatinine was quite good at 13 and 0.5 respectively on 09/10 Urine culture from 09/08/2024 did not grow out any organisms Reviewing records apparently had ?norovirus? about 3 weeks ago now. When later labs return prompting questions rashes or other evidence of bleeding, answered in the negative. Granddaughter notes pressure sores? Related Data Home Medications ?Medication ?Instructions ?Recorded ?Confirmed Senokot-S PRN 09/08/24 amlodipine 5 mg tablet 5 mg PO DAILY 09/08/24 09/08/24 divalproex 250 mg tablet,extended 250 mg PO HS 09/08/24 09/08/24 release 24 hr (Depakote ER) donepezil 5 mg tablet (Aricept) 5 mg PO QHS 09/08/24 09/08/24 levothyroxine 50 mcg capsule 50 mcg PO DAILY 09/08/24 09/08/24 memantine 2.5 mg PO BID 09/08/24 09/08/24 menthol 0.44 %-zinc oxide 20.6 % 1 applic topical TID-QID PRN 09/08/24 09/08/24 topical ointment in packet (CalaSoothe) risperidone 1 mg tablet (Risperdal) 1 mg PO BID 09/08/24 09/08/24 sertraline 100 mg tablet 100 mg PO DAILY 09/08/24 09/08/24 sertraline 50 mg tablet 50 mg PO DAILY 09/08/24 09/08/24 Allergies Allergy/AdvReac Type Severity Reaction Status Date / Time Sulfa (Sulfonamide Allergy Unknown Verified 09/08/24 18:10 Antibiotics) Review of Systems Status of ROS: Reports: unobtainable due to mental status [facility] Social History Smoking Status: Former smoker Do you use any of these nicotine containing products: None How often do you have a drink containing alcohol: monthly or less AUDIT-C Alcohol total score: 1 Non-prescribed substance use: denies use service: No Exam Narrative: Exam Narrative: Pleasant. NAD. Smiles. Can answer in the immediate but poor recall clearly. Eyes are moist. No conjunctival inflammation. Lungs appear to be clear. Breathing easily. Abdomen is full soft and nontender. No masses are palpable. Dependent lower extremity edema only. Well-perfused peripherally. Skin is warm and dry with points of figueroa hemangiomas but no other large rashes or bruising. Garcia catheter against right leg to leg bag. Urine is dark appears to have 100 mL maybe 150 mL in her leg bag. Const: Vital Signs, click to edit/add: Vital Signs - 24 hr 09/16/24 18:14 09/16/24 20:00 09/16/24 22:43 Temperature 97.9 F Pulse Rate [Right Radial] 76 70 65 Respiratory Rate 16 16 16 Blood Pressure [Ri ght Upper Arm] 131/73 159/79 H 175/79 H Pulse Oximetry 93 95 95 Oxygen Delivery Me thod Room Air Room Air Room Air Documenting provider has reviewed patient's vital signs: yes Course Vital Signs Vital signs: Initial Vital Signs Temperature 97.9 F 09/16/24 18:14 Temperature Source Temporal Artery Scan 09/16/24 18:14 Pulse Rate 76 09/16/24 18:14 Pulse Rhythm Regular 09/16/24 18:14 Respiratory Rate 16 09/16/24 18:14 Blood Pressure 131/73 09/16/24 18:14 Blood Pressure Mean 92 09/16/24 18:14 Pulse Oximetry 93 09/16/24 18:14 Oxygen Delivery Method Room Air 09/16/24 18:14 Vital Signs Temperature 97.9 F 09/16/24 18:14 Pulse Rate 76 09/16/24 18:14 Respiratory Rate 16 09/16/24 18:14 Blood Pressure 131/73 09/16/24 18:14 Pulse Oximetry 93 09/16/24 18:14 Oxygen Delivery Method Room Air 09/16/24 18:14 Temperature 97.9 F 09/16/24 18:14 Pulse Rate 65 09/16/24 22:43 Respiratory Rate 16 09/16/24 22:43 Blood Pressure 175/79 H 09/16/24 22:43 Pulse Oximetry 95 09/16/24 22:43 Oxygen Delivery Method Room Air 09/16/24 22:43 Medications Administered Medications: Discontinued Medications Generic Name Dose Route Start Last Admin Trade Name Vesta PRN Reason Stop Dose Admin Sodium Chloride 1,000 mls @ 1,000 mls/hr 09/16/24 21:34 09/16/24 23:01 0.9 % Sodium Chloride 1000 Ml IV 09/16/24 22:33 Infused .Q1H ONE Infusion Medical Decision Making MDM Narrative Medical decision making narrative: Discussed simply flushing her catheter. Done without difficulty and appears to be draining well. Nursing noted that the catheter tubing head appeared to be a pinched off somewhat in her clothing. Anticipating discharge then with recently normal renal function without further concerns of obstruction, did speak to family who were concerned about dehydration which I agree is likely and would encourage hydration. Family calculates that has than with the amount of urine present in the bag now probably produced maybe 450 mL of urine in 24 hours. Would like to receive hydration. Will go ahead and do that and then repeat labs at same time. Ordered for a L of normal saline. CBC surprisingly was now with red cells of twice what they were 6 days ago and hemoglobin had doubled to 25. Hematocrit of 74. Red cell indices were normal. Platelet count had dropped from 262 to [address]. Puzzling in that hemoglobin and platelets were in opposite directions. Thrombocytopenia with evidence of polycythemia. Myelofibrosis? Dehydration? Simply erroneous results? Urine was less dark now and had produced at least 300 mL of urine in her leg bag. Urinalysis also was obtained and look somewhat positive however was just being treated with cefdinir. I would like to wait with the culture in this case. CRP is elevated which does lend to more concern of infection. Did discuss this case with hematology. Understandably recommending redraw. If results are the same then peripheral smear, retic count, JAK2 mutation screening, erythropoietin level Thankfully repeat CBC is WNL. Gertrudis has been sleeping with stable vitals. Attended to patiently by her granddaughter. See patient discharge plan for further discussion You received a L of normal saline while you were here. Do focus on increasing fluid intake. You do have findings of potential infection in your urine. Given that your urine did not grow anything out last week, though at the time you were also being treated for a cellulitis, I would wait to treat pending urine culture results in approximately 2 days. We will contact you if appears to be treatable. I would follow-up later this week to have this Garcia removed. Be seen sooner for increasing weakness or confusion or fever. Be sure to be monitoring/treating for constipation. Medical Records Medical records reviewed: Yes I reviewed the patient's medical records Lab Data Lab results reviewed: Yes I reviewed the patient's lab results Labs: Lab Results 09/16/24 09/16/24 09/16/24 Range/Units 21:50 22:38 22:39 WBC 3.86 L (4.50-11.00) K/uL RBC 8.11 H (4.00-5.20) m/uL Hgb 25.1 H (12.0-16.0) gm/dL Hct 74.4 H (33.0-51.0) % MCV 92 (80-100) fL MCH 31 (26-34) pg MCHC 34 (32-36) gm/dL RDW Coeff of Lambert 14.6 (11.5-15.5) % Plt Count 44 L* (140-440) K/uL Neut % (Auto) 71.0 (42.0-72.0) % Lymph % (Auto) 17.6 L (20-44) % [place] % (Auto) 9.1 (0.0-11.0) % Eos % (Auto) 1.0 (0.0-7.0) % Baso % (Auto) 0.3 (0.0-3.0) % Neut # (Auto) 2.70 (1.7-7.0) K/uL Lymph # (Auto) 0.70 L (0.90-2.90) K/uL [place] # (Auto) 0.40 (0.00-0.90) K/UL Eos # (Auto) 0.00 (0.00-0.50) K/uL Baso # (Auto) 0.00 (0.00-0.30) K/uL Abs Immat Gran (auto) 0.00 (0.00-0.30) K/uL Imm/Tot Granulo (auto) 1.0 % Diff Slide Review Acceptable Review (Acceptable) INR 0.99 (0.91-1.10) APTT 27 (23-33) Seconds Sodium 135 (135-149) mmol/L Potassium 3.8 (3.6-5.1) mmol/L Chloride 101 (96-114) mmol/L Carbon Dioxide 26 (20-32) mmol/L Anion Gap 8 (7-15) mEq/L BUN 18 (7-30) mg/dL Creatinine 0.6 (0.5-1.5) mg/dL Estimated GFR 86 ml/min Glucose 104 (60-115) mg/dL Calcium 9.4 (8.4-10.6) mg/dL Total Bilirubin 0.9 (0.1-1.5) mg/dL Direct Bilirubin 0.3 (0.0-0.5) mg/dL AST 20 (12-35) U/L ALT 17 (4-35) U/L Alkaline Phosphatase 86 (40-150) U/L C-Reactive Protein 4.1 H (0.5-1.0) mg/dL Total Protein 6.9 (6.0-8.3) g/dL Albumin 4.1 (3.3-5.0) g/dL Urine Color (Yellow) Urine Appearance (Clear) Urine pH (5.0-8.5) Ur Specific [place] (1.000-1.030) Urine Protein (Negative) Urine Glucose (UA) (Negative) Urine Ketones (Negative) Urine Blood (Negative) Urine Nitrite (Negative) Urine Bilirubin (Negative) Urine Urobilinogen (0.2-1.0) Ur Leukocyte Esterase (Negative) Urine RBC (0-2) Urine WBC (0-5) Ur Squamous Epith Cells (None-Few) Urine Bacteria (None) Lab Acknowledgement Test Added 09/16/24 09/17/24 Range/Units 23:15 00:38 WBC 8.88 (4.50-11.00) K/uL RBC 3.68 L (4.00-5.20) m/uL Hgb 11.8 L (12.0-16.0) gm/dL Hct 34.6 (33.0-51.0) % MCV 94 (80-100) fL MCH 32 (26-34) pg MCHC 34 (32-36) gm/dL RDW Coeff of Lambert 12.5 (11.5-15.5) % Plt Count 265 (140-440) K/uL Neut % (Auto) 63.6 (42.0-72.0) % Lymph % (Auto) 20.7 (20-44) % [place] % (Auto) 13.7 H (0.0-11.0) % Eos % (Auto) 1.7 (0.0-7.0) % Baso % (Auto) 0.2 (0.0-3.0) % Neut # (Auto) 5.64 (1.7-7.0) K/uL Lymph # (Auto) 1.84 (0.90-2.90) K/uL [place] # (Auto) 1.20 H (0.00-0.90) K/UL Eos # (Auto) 0.15 (0.00-0.50) K/uL Baso # (Auto) 0.02 (0.00-0.30) K/uL Abs Immat Gran (auto) 0.01 (0.00-0.30) K/uL Imm/Tot Granulo (auto) 0.1 % Diff Slide Review (Acceptable) INR (0.91-1.10) APTT (23-33) Seconds Sodium (135-149) mmol/L Potassium (3.6-5.1) mmol/L Chloride (96-114) mmol/L Carbon Dioxide (20-32) mmol/L Anion Gap (7-15) mEq/L BUN (7-30) mg/dL Creatinine (0.5-1.5) mg/dL Estimated GFR ml/min Glucose (60-115) mg/dL Calcium (8.4-10.6) mg/dL Total Bilirubin (0.1-1.5) mg/dL Direct Bilirubin (0.0-0.5) mg/dL AST (12-35) U/L ALT (4-35) U/L Alkaline Phosphatase (40-150) U/L C-Reactive Protein (0.5-1.0) mg/dL Total Protein (6.0-8.3) g/dL Albumin (3.3-5.0) g/dL Urine Color Yellow (Yellow) Urine Appearance Slightly Cloudy A (Clear) Urine pH 7.5 (5.0-8.5) Ur Specific [place] 1.015 (1.000-1.030) Urine Protein Trace A (Negative) Urine Glucose (UA) Negative (Negative) Urine Ketones Negative (Negative) Urine Blood Trace-intact A (Negative) Urine Nitrite Negative (Negative) Urine Bilirubin Negative (Negative) Urine Urobilinogen 1.0 (0.2-1.0) Ur Leukocyte Esterase 1+ A (Negative) Urine RBC 2-5 A (0-2) Urine WBC 10-25 A (0-5) Ur Squamous Epith Cells Few (None-Few) Urine Bacteria Few A (None) Lab Acknowledgement Discharge Plan Discharge Clinical Impression: Decreased urine output Garcia catheter problem Qualifiers: Encounter type: initial encounter Qualified Code(s): T83.9XXA - Unspecified complication of genitourinary prosthetic device, implant and graft, initial encounter Patient Disposition: Home w/ Parent or Adult Condition: Stable Additional Instructions: You received a L of normal saline while you were here. Do focus on increasing fluid intake. You do have findings of potential infection in your urine. Given that your urine did not grow anything out last week, though at the time you were also being treated for a cellulitis, I would wait to treat pending urine culture results in approximately 2 days. We will contact you if appears to be treatable. I would follow-up later this week to have this Garcia removed. Be seen sooner for increasing weakness or confusion or fever. Be sure to be monitoring/treating for constipation. Prescriptions: No Action amlodipine 5 mg tablet 5 mg PO DAILY CalaSoothe 0.44-20.6 % ointment in packet 1 applic topical TID-QID PRN divalproex [Depakote ER] 250 mg tablet extended release 24 hr 250 mg PO HS donepezil [Aricept] 5 mg tablet 5 mg PO QHS levothyroxine 50 mcg capsule 50 mcg PO DAILY memantine 2.5 mg PO BID risperidone [Risperdal] 1 mg tablet 1 mg PO BID Senokot-S PRN sertraline 100 mg tablet 100 mg PO DAILY sertraline 50 mg tablet 50 mg PO DAILY Follow Up/Referrals: Provider,Not a Local [Primary Care Provider] - Stand Alone Forms: MyHealth Info Instructions
--- OUTSIDE RECORDS SUMMARY | 2024-09-16 19:14 | XMS_ITS | Clinical Summary ---
Author Organization [facility] Address [address] [place] [address] Care Team Providers Care Director Market Intelligence Name Role Phone Luis Fernando, Subacute Unit [facility] [phone] Yaneth Reyes MD Primary Care P rovider [...] (11/18/2021): Added automatically from request for surgery [id number] Major depressive disorder, recurrent, moderate 1 07/31/2020 [...] Comments Heart Disease Brother age 58 of [place] Other Brother mitral valve pr olapse Heart [...] How often do you attend chur or jew services? More than 4 times per year 09/14/2021 Do you belong to any clubs o r organizations such as jewish groups, unions, fraternal or athletic groups, or [...] and heating? Not hard at all 09/14/2021 [facility] of Occupat ional Health - [...] on file Legal Sex Female 10:54 PM CW OPERATOR Gender Identity Not on file Sexual [...] Comments LIPID PANEL Routine 08/02/2022 8:12 AM CW OPERATOR Mixed hyperlipidemia DEXA HIP AND SPINE Routine 08/07/2019 9: 56 AM CW OPERATOR Other osteoporosis without current pathological fracture Postmenopausal from Last 3 Months or Most Recently Relevant to Health Maintenance Results * LIPID PANEL (08/02/2022 8:12 AM CW OPERATOR) Cholesterol 199 <200 mg/dL 08/02/2022 11:51 AM CW OPERATOR [facility] Triglycerides 118 30 - 150 mg/dL 08/02/2022 11:51 AM CW OPERATOR [facility] Cholesterol, LDL (Calculated) 128 0 - 159 mg/dL 08/02/2022 11:51 AM CW OPERATOR [facility] Cholesterol, HDL 47 >40 mg/dL 08/02/19 23 11:51 AM CW OPERATOR [facility] Cholesterol, vLDL 24 mg/dL 023 11:51 AM [facility] Fasting Status Yes 08/02/2022 11:51 AM [facility] Blood VENOUS BLOOD / Unknown Venipuncture / Unknown 08/02/2022 8:12 AM CW OPERATOR 08/02/2022 8:13 AM CW OPERATOR us Yaneth Reyes MD LAB CHEMISTRY O RDERABLES Final Result [facility] [address] [place] [address], * DEXA HIP AND SPINE (08/07/2019 9:56 AM CW OPERATOR) Anatomical Region Laterality Modality Hip, Spine Other Narrative 08/12/2019 9:14 AM CW OPERATOR INTERPRETING PROVIDER: Theron Frey MD BONE DENSITOMETRY: [...] to 20% for major osteoporotic fracture. 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 [place] [address] 08/06/17 Additional Source Comments PLEASE NOTE: Replies to this message will not be received.[facility] and [facility]
--- OUTSIDE RECORDS SUMMARY | 2024-09-16 19:14 | XMS_ITS | Referral Summary ---
Author Organization [facility] Address [address] [place] [address] Care Team Providers Care Fitter Type Bar And Segment Name Role Phone Luis Fernando, Subacute Unit [facility] [phone] Yaneth Reyes MD Primary Care P rovider [...] (11/18/2021): Added automatically from request for surgery [id number] Major depressive disorder, recurrent, moderate 1 07/31/2020 [...] declined 09/14/2021 How often do you attend [facility] or episcopalian services? More than 4 times per year 09/14/2021 Do you belong to any clubs o r organizations such as oriental orthodox groups, unions, fraternal or athletic groups, or [...] and heating? Not hard at all 09/14/2021 [facility] [place] of Occupat ional Health - Occupational Stress [...] place to sleep or slept in a chcf (including now)? No 09/14/2021 Depression (PHQ-9) Answer Date Recorded Last PHQ-9 Score Not on file 10/21/2023 Thoughts of self harm Not at all 10/21/2023 Intimate Partner Violence Answer Date R ecorded Physically hurt, threatened and/or made to feel afraid No 07/25/2023 Comments No Sex and Gender Information Value Date Recorded Sex Assigned at Not on file Legal Sex Female 10:54 PM CARVER HAND Gender Identity Not on file Sexual Orientation [...] Comments LIPID PANEL Routine 08/02/2022 8:12 AM CARVER HAND Mixed hyperlipidemia DEXA HIP AND SPINE Routine 08/07/2019 9: 56 AM CARVER HAND Other osteoporosis without current pathological fracture Postmenopausal from Last 3 Months or Most Recently Relevant to Health Maintenance Results * LIPID PANEL (08/02/2022 8:12 AM CARVER HAND) Cholesterol 199 <200 mg/dL 08/02/2022 11:51 AM CARVER HAND [facility] Triglycerides 118 30 - 150 mg/dL 08/02/2022 11:51 AM CARVER HAND [facility] Cholesterol, LDL (Calculated) 128 0 - 159 mg/dL 08/02/2022 11:51 AM CARVER HAND [facility] Cholesterol, HDL 47 >40 mg/dL 08/02/19 23 11:51 AM CARVER HAND [facility] Cholesterol, vLDL 24 mg/dL 023 11:51 AM [facility] Fasting Status Yes 08/02/2022 11:51 AM [facility] Blood VENOUS BLOOD / Unknown Venipuncture / Unknown 08/02/2022 8:12 AM CARVER HAND 08/02/2022 8:13 AM CARVER HAND us Yaneth Reyes MD LAB CHEMISTRY O RDERABLES Final Result [facility] [address] [place] [address], [place] [phone] * DEXA HIP AND SPINE (08/07/2019 9:56 AM CARVER HAND) Anatomical Region Laterality Modality Hip, Spine Other Narrative 08/12/2019 9:14 AM CARVER HAND INTERPRETING PROVIDER: Theron Frey MD BONE DENSITOMETRY: [...] Most Recently Relevant to Health Maintenance Insurance [id number] [id number] [employer] [id number] [place] [id number] -[employer] * Guarantor: [facility] Account Type Relation to Patient Date of Phone Billing Address [facility] Other NONE (Work) [address] [facility] [place] [id number] Advance Directives Documents on File Type Date Recorded Patient Bid Manager Expl anation Advanced Directives 12/17/2017 7:15 AM [...] Alternate Health Care Agen t Care Teams Fitter Type Bar And Segment Relationship Specialty Start Date End Date Yaneth Reyes MD [address] [place] [phone] PCP - General Family Medicine 04/16/20 [place], Subacute [address] [place] [address] 08/06/17 Additional Source Comments PLEASE NOTE: Replies to this message will not be received.[facility]
--- OUTSIDE RECORDS SUMMARY | 2024-09-16 19:15 | XMS_ITS | Encounter Summary ---
Author Organization [facility] Address [address] [place] [address] Care Team Providers Care Catering Server Name Role Phone Yaneth Reyes MD Primary Care P rovider [place], Subacute Unit St. Unavailable Yaneth Reyes MD Unavailable Unknown, Provider Primary Care Provider Unavaila ble Provider, No Primary Primary Care Provider Unava ilable Yaneth Reyes MD Unavailable Yaneth Reyes MD Primary Care P rovider Encounter Details Date Type Department Care Team (Late st Contact Info) Description 07/03/2016 Historical Conversion [facility] Medicine [address] [place] [address] KenishaRefugio dorado Oz, PAC [address] [facility] [address] [place] [address] Social History Tobacco Use Types Packs/Day Years Used Date Smoking Tobacco: Never Smokeless Tobacco: Never Alcohol Use Standard Drinks/Week Comments Yes 0 (1 standard drink = 0.6 oz pur e alcohol) RARE Comments No Sex and Gender Information Value Date Recorded Sex Assigned at Not on file Legal Sex Female 10:54 PM APPLICATION MANAGER Gender Identity Not on file Sexual Orientation Not on file Occupation Industry Job Start Date Job End Date retired Not on file Not on file Not on file documented as of this encounter Last Filed Vital Signs Vital Sign Reading Time Taken Comments Blood Pressure 142/75 07/03/2016 3:22 PM APPLICATION MANAGER Pulse - - Temperature - - Respiratory Rate - - Oxygen Saturation - - Inhaled Oxygen Concentration - - Weight 64.5 kg (142 lb 2 oz) 07/03/2016 3:22 PM APPLICATION MANAGER Height 162.6 cm (5' 4) 07/03/2016 3:22 PM APPLICATION MANAGER Body Mass Index 24.4 07/03/2016 3:22 PM APPLICATION MANAGER documented in this encounter Functional Status * Are you deaf or do you have serious difficulty hearing? Answer Date of Assessment Author No 05/19/2016 12:00 AM APPLICATION MANAGER Antelmo Walker * Are you blind or [...] documented as of this encounter Care Teams Catering Server Relationship Specialty Start Date End Date Yaneth Reyes MD PCP - General 01/12/07 03/07/20 Unknown, [place] [address] PCP - General 03/08/20 04/06/20 Provider, [place] [address] PCP - General 04/07/20 04/15/20 Yaneth Reyes MD [address] [place] [phone] PCP - General Family Medicine 04/16/20 [place], Subacute Unit [facility] [place] [address] 08/06/17 Yaneth Reyes MD [address] [place] [phone] 08/06/17 04/18/20 [place] [address] Family Medicine 04/10/20 04/18/20 documented as of this encounter Additional Source Comments PLEASE NOTE: Replies to this message will not be received.[facility]
--- OUTSIDE RECORDS SUMMARY | 2024-09-16 19:16 | XMS_ITS | Encounter Summary ---
[facility] Address [address] [place] [address] Care Team Providers Care Core Blower Operator Name Role Phone Yaneth Reyes MD Primary Care P rovider [place], Subacute Unit St. Unavailable Yaneth Reeys MD Unavailable Unknown, Provider Primary Care Provider Unavaila ble Provider, No Primary Primary Care Provider Unava ilable Yaneth Reyes MD Unavailable Yaneth Reyes MD Primary Care P rovider Encounter Details Date Type Department Care Team (Late st Contact Info) Description 11/14/2001 Scan [facility] [address] [place] [address] Unknown, Provider . [place] [address] Social History Tobacco Use Types Packs/Day Years Used Date Smoking Tobacco: Never Assessed Comments Unknown Sex and Gender Information Value Date Recorded Sex Assigned at Not on file Legal Sex Female 10:54 PM STITCHER OPERATOR Gender Identity Not on file Sexual [...] documented as of this encounter Care Teams Core Blower Operator Relationship Specialty Start Date End Date Yaneth Reyes MD PCP - General 01/12/07 03/07/20 Unknown, Provider . [place] [address] PCP - General 03/08/20 04/06/20 Provider, No Primary . [place] [address] PCP - General 04/07/20 04/15/20 Yaneth Reyes MD [address] [facility] [place] [phone] PCP - General Family Medicine 04/16/20 [place], Subacute Unit [address] [facility] [address] 08/06/17 Yaneth Reyes MD [address] [place] [phone] 08/06/17 04/18/20 [place] [address] Family Medicine 04/10/20 04/18/20 documented as of this encounter Additional Source Comments PLEASE NOTE: Replies to this message will not be received.[facility] and [facility]
--- OUTSIDE RECORDS SUMMARY | 2024-09-16 19:16 | XMS_ITS | Encounter Summary ---
Author Organization [facility] Aff[facility] Address [address] [place] [address] Care Team Providers Care Heater Planer Operator Name Role Phone Yaneth Reyes MD Primary Care P rovider [place], Subacute Unit St. Unavailable [phone] Yaneth Reyes MD Unavailable Unknown, Provider Primary Care Provider Unavaila ble Provider, No Primary Primary Care Provider Unava ilable Yaneth Reyes MD Unavailable Yaneth Reyes MD Primary Care P rovider Encounter Details Date Type Department Care Team (Late st Contact Info) Description 09/25/2001 [facility] [address] [place] [address] Unknown, Provider . [place] [address] Social History Tobacco Use Types Packs/Day Years Used Date Smoking Tobacco: Never Assessed Comments Unknown Sex and Gender Information Value Date Recorded Sex Assigned at Not on file Legal Sex Female 10:54 PM PHYSICIAN INTERVENTIONAL CARDIOLOGIST Gender Identity Not on file Sexual Orientation Not on file documented as of this encounter Plan of Treatment Not on file documented as of this encounter Procedures Procedure Name Priority Date/Time Associated Diagnosis Comments PROCEDURE - S 09/25/2001 10:44 AM PHYSICIAN INTERVENTIONAL CARDIOLOGIST documented in this encounter Results * PROCEDURE - S (09/25/2001 10:44 AM PHYSICIAN INTERVENTIONAL CARDIOLOGIST) us Scan Linda PROCEDURE NOTE Final Result documented in this encounter Visit Diagnoses Not on filedocumented in this encounter Additional Health Concerns Infection Onset Date Last Indicated Resolved Time COVID-19 Rule Out 04/07/2020 04/07/2020 04/07/2020 10:35 AM CDT COVID-19 Rule Out 04/08/2020 04/08/2020 04/08/2020 6:06 PM CDT COVID-19 Rule Out 04/21/2021 04/21/2021 04/21/2021 3:31 PM CDT documented as of this encounter Care Teams Heater Planer Operator Relationship Specialty Start Date End Date Yaneth Reyes MD PCP - General 01/12/07 03/07/20 Unknown, Provider . [place] [address] PCP - General 03/08/20 04/06/20 Provider, [place] [address] PCP - General 04/07/20 04/15/20 Yaneth Reyes MD [address] [place] [id number] PCP - General Family Medicine 04/16/20 [place], Subacute [address] [place] [address] [place] [address] 08/06/17 Yaneth Reyes MD [address] [place] [address] 08/06/17 04/18/20 [place] [address] Family Medicine 04/10/20 04/18/20 documented as of this encounter Additional Source Comments PLEASE NOTE: Replies to this message will not be received.[facility]
--- OUTSIDE RECORDS SUMMARY | 2024-09-16 19:16 | XMS_ITS | Encounter Summary ---
Author Organization [facility] Aff[facility] Address [address] [place] [address] Care Team Providers Care Special Needs Nanny Name Role Phone Yaneth Reyes MD Primary Care P rovider [place], Subacute Unit St. Unavailable Yaneth Reyes MD Unavailable Unknown, Provider Primary Care Provider Unavaila ble Provider, No Primary Primary Care Provider Unava ilable Yaneth Reyes MD Unavailable Yaneth Reyes MD Primary Care P rovider Encounter Details Date Type Department Care Team (Late st Contact Info) Description 09/25/2001 [facility] [address] [place] [address] Unknown, Provider . [place] [address] Social History Tobacco Use Types Packs/Day Years Used Date Smoking Tobacco: Never Assessed Comments Unknown Sex and Gender Information Value Date Recorded Sex Assigned at Not on file Legal Sex Female 10:54 PM COMMUNICATION COORDINATOR Gender Identity Not on file Sexual Orientation Not on file documented as of this encounter Plan of Treatment Not on file documented as of this encounter Procedures Procedure Name Priority Date/Time Associated Diagnosis Comments REFERRAL - S 09/25/2001 8:42 AM COMMUNICATION COORDINATOR documented in this encounter Results * REFERRAL - S (09/25/2001 8:42 AM COMMUNICATION COORDINATOR) us Scan Linda PROCEDURE NOTE Final Result documented in this encounter Visit Diagnoses Not on filedocumented in this encounter Additional Health Concerns Infection Onset Date Last Indicated Resolved Time COVID-19 Rule Out 04/07/2020 04/07/2020 04/07/2020 10:35 AM CDT COVID-19 Rule Out 04/08/2020 04/08/2020 04/08/2020 6:06 PM CDT COVID-19 Rule Out 04/21/2021 04/21/2021 04/21/2021 3:31 PM CDT documented as of this encounter Care Teams Special Needs Nanny Relationship Specialty Start Date End Date Yaneth Reyes MD PCP - General 01/12/07 03/07/20 Unknown, Provider . [place] [address] PCP - General 03/08/20 04/06/20 Provider, [place] [address] PCP - General 04/07/20 04/15/20 Yaneth Reyes MD [address] [place] [address] PCP - General Family Medicine 04/16/20 [place], Subacute Unit [address] [place] [address] [place] [address] 08/06/17 Yaneth Reyes MD [address] [place] [address] 08/06/17 04/18/20 [place] [address] Family Medicine 04/10/20 04/18/20 documented as of this encounter Additional Source Comments PLEASE NOTE: Replies to this message will not be received.[facility] and [facility]
--- OUTSIDE RECORDS SUMMARY | 2024-09-16 19:16 | XMS_ITS | Encounter Summary ---
Author Organization [facility] Aff[facility] Address [address] [place] [address] Care Team Providers Care Rent Control Office Manager Name Role Phone Yaneth Reyes MD Primary Care P rovider [place], Subacute Unit St. Unavailable Yaneth Reyes MD Unavailable Unknown, Provider Primary Care Provider Unavaila ble Provider, No Primary Primary Care Provider Unava ilable Yaneth Reyes MD Unavailable Yaneth Reyes MD Primary Care P rovider Encounter Details Date Type Department Care Team (Late st Contact Info) Description 09/25/2001 [facility] [address] [place] [address] Unknown, Provider . 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 [place] [address] PCP - General 03/08/20 04/06/20 Provider, No Primary . [place] [address] PCP - General 04/07/20 04/15/20 Yanteh Reyes MD [address] [facility] [place] [address] PCP - General Family Medicine 04/16/20 [place], Subacute Unit [address] [facility] [place] [address] 08/06/17 Yaneth Reyes MD [address] [place] [phone] 08/06/17 04/18/20 [place] [address] Family Medicine 04/10/20 04/18/20 documented as of this encounter Additional Source Comments PLEASE NOTE: Replies to this message will not be received.[facility]
--- OUTSIDE RECORDS SUMMARY | 2024-09-16 19:16 | XMS_ITS | Encounter Summary ---
Author Organization [facility] Aff[facility] Address [address] [place] [address] Care Team Providers Care Electrotype Molder Name Role Phone Yaneth Reyes MD Primary Care P rovider [place], Subacute Unit St. Unavailable Yaneth Reyes MD Unavailable Unknown, Provider Primary Care Provider Unavaila ble Provider, No Primary Primary Care Provider Unava ilable Yaneth Reyes MD Unavailable Yaneth Reyes MD Primary Care P rovider Encounter Details Date Type Department Care Team (Late st Contact Info) Description 11/11/2001 Scan [facility] [address] [place] [address] Unknown, Provider . [place] [address] Social History Tobacco Use Types Packs/Day Years Used Date Smoking Tobacco: Never Assessed Comments Unknown Sex and Gender Information Value Date Recorded Sex Assigned at Not on file Legal Sex Female 10:54 PM HIGH MAN Gender Identity Not on file Sexual Orientation [...] documented as of this encounter Care Teams Electrotype Molder Relationship Specialty Start Date End Date Yaneth Reyes MD PCP - General 01/12/07 03/07/20 Unknown, Provider . [place] [address] PCP - General 03/08/20 04/06/20 Provider, No Primary . [place] [address] PCP - General 04/07/20 04/15/20 Yaneth Reeys MD [address] [place] [address] PCP - General Family Medicine 04/16/20 [place], Subacute Unit [address] [facility] [place] [address] 08/06/17 Yaneth Reyes MD [address] [place] [address] 08/06/17 04/18/20 Yaneth Reyes MD . [place] [address] Family Medicine 04/10/20 04/18/20 documented as of this encounter Additional Source Comments PLEASE NOTE: Replies to this message will not be received.[facility]
--- OUTSIDE RECORDS SUMMARY | 2024-09-16 19:17 | XMS_ITS | Encounter Summary ---
Author Organization [facility] Affiliates Address [address] [place] [address] Care Team Providers Care Passenger Representative Name Role Phone Yaneth Reyes MD Primary Care P rovider [place], Subacute Unit St. Unavailable Yaneth Reyes MD Unavailable Unknown, Provider Primary Care Provider Unavaila ble Provider, No Primary Primary Care Provider Unava ilable Yaneth Reyes MD Unavailable Yaneth Reyes MD Primary Care P rovider Encounter Details Date Type Department Care Team (Late st Contact Info) Description 09/30/1999 Scan [facility] [address] [place] [address] Unknown, Provider . 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 [place] [address] PCP - General 03/08/20 04/06/20 Provider, No Primary . [place] [address] PCP - General 04/07/20 04/15/20 Yaneth Reyes MD [address] [facility] [place] [address] PCP - General Family Medicine 04/16/20 [place], Subacute Unit [address] [facility] [place] [address] 08/06/17 Yaneth Reyes MD [address] [place] [address] 08/06/17 04/18/20 [place] [address] Family Medicine 04/10/20 04/18/20 documented as of this encounter Additional Source Comments PLEASE NOTE: Replies to this message will not be received.[facility]
--- OUTSIDE RECORDS SUMMARY | 2024-09-16 19:17 | XMS_ITS | Encounter Summary ---
Author Organization [facility] Aff[facility] Address [address] [place] [address] Care Team Providers Care Outpatient Coding Specialist Name Role Phone Yaneth Reyes MD Primary Care P rovider [place], Subacute Unit St. Unavailable Yaneth Reyes MD Unavailable Unknown, Provider Primary Care Provider Unavaila ble Provider, No Primary Primary Care Provider Unava ilable Yaneth Reyes MD Unavailable Yaneth Reyes MD Primary Care P rovider Encounter Details Date Type Department Care Team (Late st Contact Info) Description 05/18/1977 Scan [facility] [address] 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 Gender Identity Not on file Sexual Orientation Not on file documented as of this encounter Procedure Notes * LINDA, SCAN - 05/18/1977 4:54 PM CSTAssociated Order(s): RADIOLOGY - S ND SCHOOL INSTRUCTOR documented in this encounter Plan of Treatment Not on file documented as of this encounter Procedures Procedure Name Priority Date/Time Associated Diagnosis Comments RADIOLOGY - S 05/18/1977 4:54 PM GROUND SCHOOL INSTRUCTOR documented in this encounter Results * RADIOLOGY - S (05/18/1977 4:54 PM GROUND SCHOOL INSTRUCTOR) Anatomical Region Laterality Modality Other Narrative Procedure [...] documented as of this encounter Care Teams Outpatient Coding Specialist Relationship Specialty Start Date End Date Yaneth Reyes MD PCP - General 01/12/07 03/07/20 Unknown, Provider . [place] [address] PCP - General 03/08/20 04/06/20 Provider, No Primary . [place] [address] PCP - General 04/07/20 04/15/20 Yaneth Reyes MD [address] [place] [address] PCP - General Family Medicine 04/16/20 [place], [facility] [address] [place] [address] 08/06/17 Yaneth Reyes MD [address] [place] [address] 08/06/17 04/18/20 Yaneth Reyes MD . [facility] [place] [address] Family Medicine 04/10/20 04/18/20 documented as of this encounter Additional Source Comments PLEASE NOTE: Replies to this message will not be received.[facility]
--- OUTSIDE RECORDS SUMMARY | 2024-09-16 19:17 | XMS_ITS | Encounter Summary ---
Author Organization [facility] Aff[facility]ates Address [address] [place] [address] Care Team Providers Care Executive Search Consultant Name Role Phone Yaneth Reyes MD Primary Care P rovider [place], Subacute Unit St. Unavailable Yaneth Reyes MD Unavailable Unknown, Provider Primary Care Provider Unavaila ble Provider, No Primary Primary Care Provider Unava ilable Yaneth Reyes MD Unavailable Yaneth Reyes MD Primary Care P rovider Encounter Details Date Type Department Care Team (Late st Contact Info) Description 09/20/2001 [facility] [address] [place] [address] Unknown, Provider . [place] [address] Social History Tobacco Use Types Packs/Day Years Used Date Smoking Tobacco: Never Assessed Comments Unknown Sex and Gender Information Value Date Recorded Sex Assigned at Not on file Legal Sex Female 10:54 PM INSURANCE ADMINISTRATIVE ASSISTANT Gender Identity Not on file Sexual Orientation Not on file documented as of this encounter Plan of Treatment Not on file documented as of this encounter Procedures Procedure Name Priority Date/Time Associated Diagnosis Comments REFERRAL - S 09/20/2001 7:49 AM INSURANCE ADMINISTRATIVE ASSISTANT documented in this encounter Results * REFERRAL - S (09/20/2001 7:49 AM INSURANCE ADMINISTRATIVE ASSISTANT) us Scan Linda PROCEDURE NOTE Final Result documented in this encounter Visit Diagnoses Not on filedocumented in this encounter Additional Health Concerns Infection Onset Date Last Indicated Resolved Time COVID-19 Rule Out 04/07/2020 04/07/2020 04/07/2020 10:35 AM CDT COVID-19 Rule Out 04/08/2020 04/08/2020 04/08/2020 6:06 PM CDT COVID-19 Rule Out 04/21/2021 04/21/2021 04/21/2021 3:31 PM CDT documented as of this encounter Care Teams Executive Search Consultant Relationship Specialty Start Date End Date Yaneth Reyes MD PCP - General 01/12/07 03/07/20 Unknown, [place] [address] PCP - General 03/08/20 04/06/20 Provider, [place] [address] PCP - General 04/07/20 04/15/20 Yaneth Reyes MD [address] [place] [address] PCP - General Family Medicine 04/16/20 [place], Subacute Unit [address] [place] [address] [place] [address] 08/06/17 Yaneth Reyes MD [address] [place] [address] 08/06/17 04/18/20 [place] [address] Family Medicine 04/10/20 04/18/20 documented as of this encounter Additional Source Comments PLEASE NOTE: Replies to this message will not be received.[facility] and [facility]
--- OUTSIDE RECORDS SUMMARY | 2024-09-16 19:17 | XMS_ITS | Encounter Summary ---
Author Organization [facility] Affiliates Address [address] [place] [address] Care Team Providers Care Verification Lead Name Role Phone Yaneth Reyes MD Primary Care P rovider [place], Subacute Unit St. Unavailable Yaneth Reyes MD Unavailable Unknown, Provider Primary Care Provider Unavaila ble Provider, No Primary Primary Care Provider Unava ilable Yaneth Reyes MD Unavailable Yaneth Reyes MD Primary Care P rovider Encounter Details Date Type Department Care Team (Late st Contact Info) Description 02/19/1974 Scan [facility] [address] [place] [address] Unknown, [place] [address] Social History Tobacco Use Types Packs/Day Years Used Date Smoking Tobacco: Never Assessed Comments Unknown Sex and Gender Information Value Date Recorded Sex Assigned at Not on file Legal Sex Female 10:54 PM DOCTOR OF DENTAL MEDICINE Gender Identity Not on file Sexual Orientation Not on file documented as of this encounter Procedure Notes * LINDA, SCAN - 11/28/1974 4:54 PM CDTAssociated Order(s): RADIOLOGY - S OR OF DENTAL MEDICINE * LINDA, SCAN - 09/30/1974 4:54 PM CDTAssociated Order(s): RADIOLOGY - S OR OF DENTAL MEDICINE * LINDA SCAN - 02/21/1974 4:54 PM CDTAssociated Order(s): RADIOLOGY - S OR OF DENTAL MEDICINE * LINDA SCAN - 02/20/1974 4:54 PM CDTAssociated Order(s): RADIOLOGY - S OR OF DENTAL MEDICINE * Unknown, Provider, - 02/19/1974 4:54 PM CDT OR OF DENTAL MEDICINE * LINDA SCAN - 02/19/1974 4:54 PM CDTAssociated Order(s): PATHOLOGY REPORT - S OR OF DENTAL MEDICINE * LINDA, SCAN - 02/18/1974 4:54 PM CDTAssociated Order(s): RADIOLOGY - S OR OF DENTAL MEDICINE documented in this encounter Plan of Treatment [...] documented as of this encounter Care Teams Verification Lead Relationship Specialty Start Date End Date Yaneth Reyes MD PCP - General 01/12/07 03/07/20 Unknown, [place] [address] PCP - General 03/08/20 04/06/20 Provider, [place] [address] PCP - General 04/07/20 04/15/20 Yaneth Reyes MD [address] [place] [address] PCP - General Family Medicine 04/16/20 [place], Subacute Unit [address] [facility] [place] [address] 08/06/17 Yaneth Reyes MD [address] [place] [address] 08/06/17 04/18/20 Yaneth Reyes MD . [place] [address] Family Medicine 04/10/20 04/18/20 documented as of this encounter Additional Source Comments PLEASE NOTE: Replies to this message will not be received.[facility]
--- OUTSIDE RECORDS SUMMARY | 2024-09-16 19:17 | XMS_ITS | Encounter Summary ---
Author Organization [facility] Aff[facility]ates Address [address] [place] [address] Care Team Providers Care Visitor Services Assistant Name Role Phone Yaneth Reyes MD Primary Care P rovider [place], Subacute Unit St. Unavailable Yaneth Reyes MD Unavailable Unknown, Provider Primary Care Provider Unavaila ble Provider, No Primary Primary Care Provider Unava ilable Yaneth Reyes MD Unavailable Yaneth Reyes MD Primary Care P rovider Encounter Details Date Type Department Care Team (Late st Contact Info) Description 11/14/2001 Scan [facility] [address] [place] [address] Unknown, Provider . 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 [place] [address] PCP - General 03/08/20 04/06/20 Provider, [place] [address] PCP - General 04/07/20 04/15/20 Yaneth Reyes MD [address] [place] [address] PCP - General Family Medicine 04/16/20 [place], Subacute Unit [address] [facility] [place] [address] 08/06/17 Yaneth Reyes MD [address] [place] [address] 08/06/17 04/18/20 Yaneth Reyes MD . [place] [address] Family Medicine 04/10/20 04/18/20 documented as of this encounter Additional Source Comments PLEASE NOTE: Replies to this message will not be received.[facility]
--- OUTSIDE RECORDS SUMMARY | 2024-09-16 19:17 | XMS_ITS | Encounter Summary ---
Author Organization [facility] Affiliates Address [address] [place] [address] Care Team Providers Care Corporate Physical Security Supervisor Name Role Phone Yaneth Reyes MD Primary Care P rovider [place], Subacute Unit St. Unavailable Yaneth Reyes MD Unavailable Unknown, Provider Primary Care Provider Unavaila ble Provider, No Primary Primary Care Provider Unava ilable Yaneth Reyes MD Unavailable Yaneth Reyes MD Primary Care P rovider Encounter Details Date Type Department Care Team (Late st Contact Info) Description 01/29/2005 Scan [facility] [address] [place] [address] Unknown, Provider . 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 [place] [address] PCP - General 03/08/20 04/06/20 Provider, No Primary . [place] [address] PCP - General 04/07/20 04/15/20 Yaneth Reyes MD [address] [place] [address] PCP - General Family Medicine 04/16/20 [place], Subacute Unit [address] [place] [address] 08/06/17 Yaneth Reyes MD [address] [place] [address] 08/06/17 04/18/20 Yaneth Reyes MD . [place] [address] Family Medicine 04/10/20 04/18/20 documented as of this encounter Additional Source Comments PLEASE NOTE: Replies to this message will not be received.[facility]
--- OUTSIDE RECORDS SUMMARY | 2024-09-16 19:17 | XMS_ITS | Encounter Summary ---
Author Organization [facility] Address [address] [place] [address] Care Team Providers Care Licensed Physical Therapist Name Role Phone Yaneth Reyes MD Primary Care P rovider [place], Subacute Unit St. Unavailable Yaneth Reyes MD Unavailable Unknown, Provider Primary Care Provider Unavaila ble Provider, No Primary Primary Care Provider Unava ilable Yaneth Reyes MD Unavailable Yaneth Reyes MD Primary Care P rovider Encounter Details Date Type Department Care Team (Late st Contact Info) Description 10/12/[address] [facility] [address] 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 Gender Identity Not on file Sexual [...] - 10/12/2003 10:34 AM CDT us Scan [facility] ECG Final Result documented in this encounter Visit Diagnoses Not on filedocumented in this encounter Additional Health Concerns Infection Onset Date Last Indicated Resolved Time COVID-19 Rule Out 04/07/2020 04/07/2020 04/07/2020 10:35 AM CDT COVID-19 Rule Out 04/08/2020 04/08/2020 04/08/2020 6:06 PM CDT COVID-19 Rule Out 04/21/2021 04/21/2021 04/21/2021 3:31 PM CDT documented as of this encounter Care Teams Licensed Physical Therapist Relationship Specialty Start Date End Date Yaneth Reyes MD PCP - General 01/12/07 03/07/20 Unknown, Provider . [place] [address] PCP - General 03/08/20 04/06/20 Provider, No Primary . [place] [address] PCP - General 04/07/20 04/15/20 Yaneth Reyes MD [address] [place] [id number] PCP - General Family Medicine 04/16/20 [place], [facility] [address] [place] [address] 08/06/17 Yaneth Reyes MD [address] [place] [id number] 08/06/17 04/18/20 Yaneth Reyes MD . COUNTS INCLUDE 234 BEDS AT [facility] [place] [address] Family Medicine 04/10/20 04/18/20 documented as of this encounter Additional Source Comments PLEASE NOTE: Replies to this message will not be received.[facility] and [facility]
--- OUTSIDE RECORDS SUMMARY | 2024-09-16 19:17 | XMS_ITS | Encounter Summary ---
Author Organization [facility] Address [address] [place] [address] Care Team Providers Care Victims Advocate Clerk/Specialist Name Role Phone Yaneth Reyes MD Primary Care P rovider [place], Subacute Unit St. Unavailable [phone] Yaneth Reyes MD Unavailable Unknown, Provider Primary Care Provider Unavaila ble Provider, No Primary Primary Care Provider Unava ilable Yaneth Reyes MD Unavailable Yaneth Reyes MD Primary Care P rovider Encounter Details Date Type Department Care Team (Late st Contact Info) Description 01/31/2005 Scan [facility] [address] [place] [address] Unknown, Provider . 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 [place] [address] PCP - General 03/08/20 04/06/20 Provider, [place] [address] PCP - General 04/07/20 04/15/20 Yaneth Reyes MD [address] [place] [address] PCP - General Family Medicine 04/16/20 [place], Subacute Unit [address] [facility] [address] 08/06/17 Yaneth Reyes MD [address] [place] [address] 08/06/17 04/18/20 Yaneth Reyes MD . [place] [address] Family Medicine 04/10/20 04/18/20 documented as of this encounter Additional Source Comments PLEASE NOTE: Replies to this message will not be received.[facility] and [facility]
--- OUTSIDE RECORDS SUMMARY | 2024-09-16 19:17 | XMS_ITS | Encounter Summary ---
Author Organization [facility] Address [address] [place] [address] Care Team Providers Care Engineering Drawings Checker Name Role Phone Yaneth Reyes MD Primary Care P rovider [place], Subacute Unit St. Unavailable Yaneth Reyes MD Unavailable Unknown, Provider Primary Care Provider Unavaila ble Provider, No Primary Primary Care Provider Unava ilable Yaneth Reyes MD Unavailable Yaneth Reyes MD Primary Care P rovider Encounter Details Date Type Department Care Team (Late st Contact Info) Description 06/26/1990 Scan [facility] [address] [place] [address] Social History Tobacco Use Types Packs/Day Years Used Date Smoking Tobacco: Never Assessed Comments Unknown Sex and Gender Information Value Date Recorded Sex Assigned at Not on file Legal Sex Female 10:54 PM SOLAR SALES MANAGER Gender Identity Not on file Sexual Orientation Not on file documented as of this encounter Procedure Notes * LINDA, SCAN - 10/29/1990 4:54 PM CDTAssociated Order(s): RADIOLOGY - S R SALES MANAGER * LINDA, SCAN - 08/08/1990 4:54 PM CSTAssociated Order(s): RADIOLOGY - S R SALES MANAGER * LINDA, SCAN - 06/26/1990 4:54 PM CSTAssociated Order(s): RADIOLOGY - S R SALES MANAGER documented in this encounter Plan of Treatment Not on file documented as of this encounter Procedures Procedure Name Priority Date/Time Associated Diagnosis Comments RADIOLOGY - S 10/29/1990 4:54 PM CDT RADIOLOGY - S 08/08/1990 4:54 PM SOLAR SALES MANAGER RADIOLOGY - S 06/26/1990 4:54 PM SOLAR SALES MANAGER documented in this encounter Results * RADIOLOGY - S (10/29/1990 4:54 PM CDT) Anatomical Region Laterality Modality Other Narrative Procedure Note LINDA, SCAN - 10/29/1990 4:54 PM CDT us Scan [facility] PROCEDURE NOTE Final Result * RADIOLOGY - S (08/08/1990 4:54 PM SOLAR SALES MANAGER) Anatomical Region Laterality Modality Other Narrative Procedure Note LINDA, SCAN - 08/08/1990 4:54 PM CST us Scan [place] PROCEDURE NOTE Final Result * RADIOLOGY - S (06/26/1990 4:54 PM SOLAR SALES MANAGER) Anatomical Region Laterality Modality Other Narrative Procedure Note LINDA, SCAN - 06/26/1990 4:54 PM CST us Scan [place] PROCEDURE [...] documented as of this encounter Care Teams Engineering Drawings Checker Relationship Specialty Start Date End Date Yaneth Reyes MD PCP - General 01/12/07 03/07/20 Unknown, [place] [address] PCP - General 03/08/20 04/06/20 Provider, No Primary . [facility] [place] [address] PCP - General 04/07/20 04/15/20 Yaneth Reyes MD [address] [place] [address] PCP - General Family Medicine 04/16/20 [place], Subacute [address] [facility] [place] [address] 08/06/17 Yaneth Reyes MD [address] [place] [address] 08/06/17 04/18/20 [place] [address] Family Medicine 04/10/20 04/18/20 documented as of this encounter Additional Source Comments PLEASE NOTE: Replies to this message will not be received.[facility] and [facility]
--- OUTSIDE RECORDS SUMMARY | 2024-09-16 19:17 | XMS_ITS | Encounter Summary ---
Author Organization [facility] Address [address] [place] [address] Care Team Providers Care Technical Spec Name Role Phone Yaneth Reyes MD Primary Care P rovider [place], Subacute Unit St. Unavailable Yaneth Reyes MD Unavailable Unknown, Provider Primary Care Provider Unavaila ble Provider, No Primary Primary Care Provider Unava ilable Yaneth Reyes MD Unavailable Yaneth Reyes MD Primary Care P rovider Encounter Details Date Type Department Care Team (Late st Contact Info) Description 02/19/1992 [facility] [address] 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 Gender Identity Not on file Sexual Orientation Not on file documented as of this encounter Procedure Notes * LINDA, SCAN - 02/19/1992 4:54 PM CDTAssociated Order(s): RADIOLOGY - S IC ORIGINS TEACHER documented in this encounter Plan of Treatment Not on file documented as of this encounter Procedures Procedure Name Priority Date/Time Associated Diagnosis Comments RADIOLOGY - S 02/19/1992 4:54 PM CDT documented in this encounter Results * RADIOLOGY - S (02/19/1992 4:54 PM CDT) Anatomical Region Laterality Modality Other Narrative Procedure Note LINDA, SCAN - 02/19/1992 4:54 PM CDT us Scan [facility] PROCEDURE [...] documented as of this encounter Care Teams Technical Spec Relationship Specialty Start Date End Date Yaneth Reyes MD PCP - General 01/12/07 03/07/20 Unknown, Provider . [place] [address] PCP - General 03/08/20 04/06/20 Provider, No Primary . [place] [address] PCP - General 04/07/20 04/15/20 Yaneth Reyes MD [address] [place] [address] PCP - General Family Medicine 04/16/20 [place], [facility] [address] [facility] [place] [address] 08/06/17 Yaneth Reyes MD [address] [place] [address] 08/06/17 04/18/20 Yaneth [place] [address] Family Medicine 04/10/20 04/18/20 documented as of this encounter Additional Source Comments PLEASE NOTE: Replies to this message will not be received.[facility] and [facility]
--- OUTSIDE RECORDS SUMMARY | 2024-09-16 19:17 | XMS_ITS | Encounter Summary ---
Author Organization [facility] Address [address] [place] [address] Care Team Providers Care Sand Mill Operator Core Sand Name Role Phone Yaneth Reyes MD Primary Care P rovider [place], Subacute Unit St. Unavailable Yaneth Reyes MD Unavailable Unknown, Provider Primary Care Provider Unavaila ble Provider, No Primary Primary Care Provider Unava ilable Yaneth Reyes MD Unavailable Yaneth Reyes MD Primary Care P rovider Encounter Details Date Type Department Care Team (Late st Contact Info) Description 11/14/2001 Scan [facility] [address] [place] [address] Unknown, Provider . [place] [address] Social History Tobacco Use Types Packs/Day Years Used Date Smoking Tobacco: Never Assessed Comments Unknown Sex and Gender Information Value Date Recorded Sex Assigned at Not on file Legal Sex Female 10:54 PM ACADEMIC DEAN Gender Identity Not on file Sexual Orientation [...] documented as of this encounter Care Teams Sand Mill Operator Core Sand Relationship Specialty Start Date End Date Yaneth Reyes MD PCP - General 01/12/07 03/07/20 Unknown, Provider . [place] [address] PCP - General 03/08/20 04/06/20 Provider, [place] [address] PCP - General 04/07/20 04/15/20 Yaneth Reyes MD [address] [place] [address] PCP - General Family Medicine 04/16/20 [place], Subacute Unit [address] [facility] [address] 08/06/17 Yaneth Reyes MD [address] [place] [address] 08/06/17 04/18/20 Yaneth Reyes MD . [place] [address] Family Medicine 04/10/20 04/18/20 documented as of this encounter Additional Source Comments PLEASE NOTE: Replies to this message will not be received.[facility] and [facility]
--- OUTSIDE RECORDS SUMMARY | 2024-09-16 19:17 | XMS_ITS | Encounter Summary ---
Author Organization [facility] Address [address] [place] [address] Care Team Providers Care Web Communications Specialist Name Role Phone Yaneth Reyes MD Primary Care P rovider [place], Subacute Unit St. Unavailable [phone] Yaneth Reyes MD Unavailable Unknown, Provider Primary Care Provider Unavaila ble Provider, No Primary Primary Care Provider Unava ilable Yaneth Reyes MD Unavailable Yaneth Reyes MD Primary Care P rovider Encounter Details Date Type Department Care Team (Late st Contact Info) Description 11/17/2004 Scan [facility] [address] [place] [address] Unknown, Provider . [place] [address] Social History Tobacco Use Types Packs/Day Years Used Date Smoking Tobacco: Never Assessed Comments Unknown Sex and Gender Information Value Date Recorded Sex Assigned at Not on file Legal Sex Female 10:54 PM SUPERVISOR PROP MAKING Gender Identity Not on file Sexual Orientation [...] documented as of this encounter Care Teams Web Communications Specialist Relationship Specialty Start Date End Date Yaneth Reyes MD PCP - General 01/12/07 03/07/20 Unknown, [place] [address] PCP - General 03/08/20 04/06/20 Provider, [place] [address] PCP - General 04/07/20 04/15/20 Yaneth Reyes MD [address] [place] [address] PCP - General Family Medicine 04/16/20 [place], Subacute Unit [address] [place] [address] 08/06/17 Yaneth Reyes MD [address] [place] [address] 08/06/17 04/18/20 Yaneth Reyes MD . [place] [address] Family Medicine 04/10/20 04/18/20 documented as of this encounter Additional Source Comments PLEASE NOTE: Replies to this message will not be received.[facility]
--- OUTSIDE RECORDS SUMMARY | 2024-09-16 19:17 | XMS_ITS | Encounter Summary ---
Author Organization [facility] Address [address] [place] [address] Care Team Providers Care Director Compliance Name Role Phone Yaneth Reyes MD Primary Care P rovider [place], Subacute Unit St. Unavailable Yaneth Reyes MD Unavailable Unknown, Provider Primary Care Provider Unavaila ble Provider, No Primary Primary Care Provider Unava ilable Yaneth Reyes MD Unavailable Yaneth Reyes MD Primary Care P rovider Encounter Details Date Type Department Care Team (Late st Contact Info) Description 10/15/2003 Scan [facility] [address] [place] [address] Unknown, Provider . [place] [address] Social History Tobacco Use Types Packs/Day Years Used Date Smoking Tobacco: Never Assessed Comments Unknown Sex and Gender Information Value Date Recorded Sex Assigned at Not on file Legal Sex Female 10:54 PM CASE MONITOR Gender Identity Not on file Sexual [...] as of this encounter Care Teams Director Compliance Relationship Specialty Start Date End Date Yaneth Reyes MD PCP - General 01/12/07 03/07/20 Unknown, Provider . [place] [address] PCP - General 03/08/20 04/06/20 Provider, No Primary . [place] [address] PCP - General 04/07/20 04/15/20 Yaneth Reyes MD [address] [place] [id number] PCP - General Family Medicine 04/16/20 [place], Subacute Unit [address] [place] [address] 08/06/17 Yaneth Reyes MD [address] [place] [address] 08/06/17 04/18/20 Yaneth Reyes MD . [place] [address] Family Medicine 04/10/20 04/18/20 documented as of this encounter Additional Source Comments PLEASE NOTE: Replies to this message will not be received.[facility] and [facility]
--- OUTSIDE RECORDS SUMMARY | 2024-09-16 19:17 | XMS_ITS | Encounter Summary ---
Author Organization [facility] Address [address] [place] [address] Care Team Providers Care Paste Up Worker Name Role Phone Yaneth Reyes MD Primary Care P rovider [place], Subacute Unit St. Unavailable Yaneth Reyes MD Unavailable Unknown, Provider Primary Care Provider Unavaila ble Provider, No Primary Primary Care Provider Unava ilable Yaneth Reyes MD Unavailable Yaneth Reyes MD Primary Care P rovider Encounter Details Date Type Department Care Team (Late st Contact Info) Description 12/11/1983 Scan [facility] [address] [place] [address] Unknown, [place] [address] Social History Tobacco Use Types Packs/Day Years Used Date Smoking Tobacco: Never Assessed Comments Unknown Sex and Gender Information Value Date Recorded Sex Assigned at Not on file Legal Sex Female 10:54 PM SENIOR CONSULTANT Gender Identity Not on file Sexual Orientation Not on file documented as of this encounter Procedure Notes * LINDA, SCAN - 11/20/1984 4:54 PM CDTAssociated Order(s): RADIOLOGY - S OR CONSULTANT * LINDA, SCAN - 12/12/1983 4:54 PM CDTAssociated Order(s): RADIOLOGY - S OR CONSULTANT * Unknown, Provider, - 12/11/1983 4:54 PM CDT OR CONSULTANT * LINDA, SCAN - 11/16/1983 4:54 PM CDTAssociated Order(s): RADIOLOGY - S OR CONSULTANT documented in this encounter Plan of Treatment [...] documented as of this encounter Care Teams Paste Up Worker Relationship Specialty Start Date End Date Yaneth Reyes MD PCP - General 01/12/07 03/07/20 Unknown, [place] [address] PCP - General 03/08/20 04/06/20 Provider, [place] [address] PCP - General 04/07/20 04/15/20 Yaneth Reyes MD [address] [place] [address] PCP - General Family Medicine 04/16/20 [place], Subacute [address] [facility] [facility] [place] [address] 08/06/17 Yaneth Reyes MD [address] [place] [address] 08/06/17 04/18/20 Yaneth Reyes MD . [place] [address] Family Medicine 04/10/20 04/18/20 documented as of this encounter Additional Source Comments PLEASE NOTE: Replies to this message will not be received.[facility] and [facility]
--- OUTSIDE RECORDS SUMMARY | 2024-09-16 19:18 | XMS_ITS | Encounter Summary ---
Author Organization [facility] Address [address] [place] [address] Care Team Providers Care On Site Property Manager Name Role Phone Yaneth Reyes MD Primary Care P rovider [place], Subacute Unit St. Unavailable Yaneth Reyes MD Unavailable Unknown, Provider Primary Care Provider Unavaila ble Provider, No Primary Primary Care Provider Unava ilable Yaneth Reyes MD Unavailable Yaneth Reyes MD Primary Care P rovider Encounter Details Date Type Department Care Team (Late st Contact Info) Description 08/13/1984 Scan [facility] [address] [place] [address] Unknown, [place] [address] Social History Tobacco Use Types Packs/Day Years Used Date Smoking Tobacco: Never Assessed Comments Unknown Sex and Gender Information Value Date Recorded Sex Assigned at Not on file Legal Sex Female 10:54 PM SKID STRAPPER Gender Identity Not on file Sexual Orientation Not on file documented as of this encounter Procedure Notes * Unknown, Provider, - 08/13/1984 4:54 PM CST STRAPPER * LAKESHA PORTER - 08/13/1984 4:54 PM CSTAssociated Order(s): PATHOLOGY REPORT - S STRAPPER documented in this encounter Plan of Treatment Not on file documented as of this encounter Procedures Procedure Name Priority Date/Time Associated Diagnosis Comments PATHOLOGY REPORT - S 08/13/1984 4:54 PM SKID STRAPPER documented in this encounter Results * PATHOLOGY REPORT - S (08/13/1984 4:54 PM SKID STRAPPER) Narrative Procedure Note LAKESHA PORTER - 08/13/1984 [...] documented as of this encounter Care Teams On Site Property Manager Relationship Specialty Start Date End Date Yaneth Reyes MD PCP - General 01/12/07 03/07/20 Unknown, Provider . [place] [address] PCP - General 03/08/20 04/06/20 Provider, No Primary . [place] [address] PCP - General 04/07/20 04/15/20 Yaneth Reyes MD [address] [place] [id number] PCP - General Family Medicine 04/16/20 [place], [facility] [address] [facility] [place] [address] 08/06/17 Yaneth Reyes MD [address] [place] [address] 08/06/17 04/18/20 Yaneth Reyes MD . [place] [address] Family Medicine 04/10/20 04/18/20 documented as of this encounter Additional Source Comments PLEASE NOTE: Replies to this message will not be received.[facility] and [facility]
--- OUTSIDE RECORDS SUMMARY | 2024-09-16 19:18 | XMS_ITS | Clinical Summary ---
Author Organization [facility] Address [address] [place] [address] Care Team Providers Care Museum Or Zoo Director Name Role Phone Aida Sr BODY MAKE UP ARTIST Primary Care Provider [phone] Allergies Active Allergy Reactions Criticality Noted Date [...] Department Care Team Description 09/07/2024 11:40 AM CAR ESCORT - 09/07/2024 4:21 PM CAR ESCORT Emergency [facility] [place] [address] [place] [address] [place] [address] from Last 3 Months Family History Medical [...] on file Legal Sex Female 6:32 AM CAR ESCORT Gender Identity Not on file Sexual Orientation Not on file Obstetrics History Last Filed Vital Signs Vital Sign Reading Time Taken Comments Blood Pressure 147/69 05/30/2023 8:11 AM CAR ESCORT Pulse 65 05/30/2023 8:11 AM CAR ESCORT Temperature 36.4 C (97.6 F) 05/30/2023 8:11 AM CAR ESCORT Respiratory Rate 16 05/30/2023 8:11 AM CAR ESCORT Oxygen Saturation 97% 05/30/2023 8:11 AM CAR ESCORT Inhaled Oxygen Concentration - - Weight 74.4 kg (164 lb) 05/28/2023 6:37 AM CAR ESCORT Height 162.6 cm (5' 4) 05/21/2023 12:42 PM CAR ESCORT Body Mass Index 28.15 05/21/2023 12:42 PM CAR ESCORT Plan of Treatment Health Maintenance Due Date [...] Additional history exists Influenza Vaccine (#1) 2024 Depression screening for age 12+ 05/21/2024 05/21/20 23 Insurance * Guarantor: Anatoly Gertrudis D Account Type Relation to Patient Date of Phone Billing Address Personal/Family Self 1935 [address] [place] [address] MEDICARE ADVANTAGE MR MEDICARE PART A HB ONLY * Guarantor: Gertrudis Ledbetter Tray Account Type Relation to Patient Date of Phone Billing Address Personal/Family Self 1935 [address] [place] [address] MEDICARE ADVANTAGE Advance Directives Documents on File Type Date Recorded Patient Roaster Supervisor Expl anation POLST 11/29/2022 Healthcare Directive 12/18/2017 018 Power of Cardiac Care Unit Nurse 06/25/2017 06/25/2017 * Full Code (Latest Code Status on File) Date Activated Date Inactivated Comments 05/22/2023 9:36 AM 05/30/2023 4:46 PM Question Answer Comments Code Status Discussion: Reviewed Preferences * Full Code Date Activated Date Inactivated Comments 05/21/2023 8:02 PM 05/22/2023 9:36 AM Question Answer Comments Code Status Discussion: Unable to Assess Preferences, Provider to review later Care Teams Museum Or Zoo Director Relationship Specialty Start Date End Date Aida Sr NP [address] [place] [id number] PCP - General Nurse Practitioner 05/21/23
--- OUTSIDE RECORDS SUMMARY | 2024-09-16 19:18 | XMS_ITS | CCD ---
Author Name Aida Sr CNP Address [address] [place] [address] Phone Organization [facility] Phone Care Team Providers Care Human Resource Officer Name Role Phone Orin RADHAAida Primary Care Provider Unavaila ble Orin RADHAAida Chronic Care Management Unavai lable Summary Purpose DataExchange Insurance Providers Payer name Policy type / Coverage type Covered libertarian ID Effective Begin Date Effective End Date [employer] Commercial Insurance [id number] Unknown Family history Runs in the family Diagnosis Age At Onset No Known Diseases N/A Social History Social History Element Codes Description Effec tive Dates Marital status Unknown 01/28/2024 Living arrangements Unknown Memory Care 01/28/[address]: 707514908 Never smoker 01/[address]: 727030548 No Alcohol Consum ption 01/28/2024 Sexually Active? 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 ICD-9: 344.9 09/15/2024 Active Pressure injury of left buttock, stage [address]: 07639637710954 ICD-10: L89.322 ICD-9: 707.05 09/15/2024 Active Pressure injury of right buttock, stage [address]: 22263209612034 ICD-10: L89.312 ICD-9: 707.05 09/15/2024 Active Protein-calorie malnutrition, mild SNOMED CT: 354717256 ICD-10: E44.1 ICD-9: 263.1 09/15/2024 Active Urinary frequency ICD-10: R35.0 ICD-9: 788.41 09/15/2024 Active UTI (urinary tract infection) ICD-10: N39.0 ICD-9: 599.0 09/15/2024 Active Acute cough SNOMED CT: 082671454 810355837 ICD-10: R05.1 ICD-9: 786.2 09/08/2024 Active Dementia ICD-10: F03.90 ICD-9: 294.20 09/08/2024 Active HTN (hypertension) ICD-10: I10 ICD-9: 401.9 09/08/2024 Active Hypothyroid ICD-10: E03.9 ICD-9: 244.9 09/08/2024 Active Insomnia ICD-10: G47.00 ICD-9: 780.52 09/08/2024 Active Left elbow pain SNOMED CT: 11299218 ICD-10: M25.522 ICD-9: 719.42 09/08/2024 Active Frailty ICD-10: R54 ICD-9: 797 08/04/2024 Active Depression, major, recurrent, 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 ICD-9: 296.34 06/30/2024 Active 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 ICD-9: 297.1 06/30/2024 Active Fall ICD-10: W19.XXXA ICD-9: E888.9 06/02/2024 Active Advance care planning ICD-10: Z71.89 ICD-9: [...] encounter ICD-10: S46.811A ICD-9: 840.8 01/28/2024 Resolved Depression, major, recurrent, mild ICD-10: F33.0 ICD-9: 296.31 09/17/2023 Resolved Elevated liver enzymes ICD-10: R74.8 ICD-9: 790.5 07/23/2023 Active Suicidal ideation ICD-10: R45.851 ICD-9: V62.84 05/04/2023 Active Advanced care planning - to document end of life discussions Unknown 11/20/2022 Active Vitamin D deficiency ICD-10: E55.9 ICD-9: 268.9 11/20/2022 Active Medications Medication Codes Instructions Start Date Stop Date Status Fill Instructions miscellaneous medical supply [facility] [place], [place] RxNorm: TUSSIN DM LIQ 20-400ML Take 10 Milliliter(s) Oral BID as needed 09/09/19 No Stop Date Active Pain Reliever Plus 250 mg-250 mg-65 mg tablet RxNorm: 317740 Take 1 Tablet(s) Oral QD as needed 09/09/19 25 No Stop Date Active trazodone 50 mg tablet RxNorm: 167161 Take 1 Tablet(s) Oral QHS every night at bedtime as needed 09/09/19 25 026 Active loperamide 2 mg tablet RxNorm: 611881 Take 1 Tablet(s) Oral BID as needed 09/09/19 25 025 Active cefdinir 300 mg capsule RxNorm: 419693 Take 1 Capsule(s) Oral BID 09/09/19 25 025 Inactive cefdinir 300 mg capsule RxNorm: 203476 Take 1 Capsule(s) Oral BID 09/09/19 25 025 Inactive trazodone 50 mg tablet RxNorm: 511274 Take 1 Tablet(s) Oral QHS every night at bedtime 09/08/19 25 025 Inactive Calmoseptine 0.44 %-20.6 % topical ointment RxNorm: 1190449 Apply Topical TID as needed to Buttocks and affected areas 08/26/19 25 025 Active Calmoseptine 0.44 %-20.6 % topical ointment RxNorm: 5017536 Apply ointment Topical TID as needed to Buttocks and affected areas 08/26/19 25 025 Inactive ondansetron 4 mg disintegrating tablet RxNorm: 140642 Take 1 Tablet(s) Oral Q4H every four hours as needed 08/25/19 25 025 Inactive ondansetron 4 mg disintegrating tablet RxNorm: 794627 Take 1 Tablet(s) Oral Q4H every four hours as needed 08/25/19 25 025 Inactive sertraline 100 mg tablet RxNorm: 833724 Take 1 Tablet(s) Oral QD 08/14/19 25 025 Inactive REFILL REQUEST FOR CYCLE THAT STARTS ON 09/11/24. THANK YOU. donepezil 5 mg tablet RxNorm: 018083 TAKE ONE-HALF TABLET (2.5MG) BY MOUTH ONCE DAILY 07/20/19 25 049 Active CYCLE FILL REFILL REQUEST FOR CYCLE FILL THAT STARTS 08/14/2024 Senexon-S 8.6 mg-50 mg tablet RxNorm: 6008645 Take 1 Tablet(s) Oral BID as needed 06/30/20 24 028 Active risperidone 1 mg tablet RxNorm: 919144 Take 1 Tablet(s) Oral BID 06/26/20 24 025 Active memantine 5 mg tablet RxNorm: 273942 TAKE ONE-HALF TABLET (2.5MG) BY MOUTH TWICE DAILY 06/23/20 24 049 Active REFILL REQUEST FOR CYCLE THAT BEGINS 07/17, THANK YOU risperidone 0.5 mg tablet RxNorm: 445807 Take 1 Tablet(s) Oral QAM every morning 03/14/20 24 024 Inactive acetaminophen 500 mg tablet RxNorm: 628026 Take 2 Tablet(s) Oral TID as needed 02/22/20 24 No Stop Date Active risperidone 1 mg tablet RxNorm: 524062 Take 1 Tablet(s) Oral HS at bed time 02/22/20 24 024 Inactive acetaminophen 500 mg tablet RxNorm: 199557 Take 2 Tablet(s) Oral TID as needed 02/22/20 24 024 Inactive sertraline 100 mg tablet RxNorm: 001483 Take 1 Tablet(s) Oral QD Take w/ 50mg tablet 01/27/20 24 025 Active sertraline 50 mg tablet RxNorm: 055956 Take 1 Tablet(s) Oral QD Take w/ 100mg tablet 01/27/20 24 025 Active acetaminophen 500 mg tablet RxNorm: 309778 Take 2 Tablet(s) Oral TID as needed 01/27/20 24 024 Inactive amlodipine 5 mg tablet RxNorm: 948665 Take 1 Tablet(s) Oral QAM every morning 01/09/20 24 048 Active REFILL REQUEST FOR CYCLE THAT BEGINS 01/30, THANK YOU! levothyroxine 50 mcg tablet RxNorm: 073180 Take 1 Tablet(s) Oral QD BEFORE BREAKFAST 01/09/20 24 048 Active REFILL REQUEST FOR CYCLE THAT BEGINS 01/30, THANK YOU! cholecalciferol (vitamin D3) 50 mcg (2,000 unit) tablet RxNorm: 157531 Take 1 Tablet(s) Oral QAM every morning 01/09/20 24 048 Active REFILL REQUEST FOR CYCLE THAT BEGINS 01/30, THANK YOU! risperidone 0.5 mg tablet RxNorm: 519863 Take 1 Tablet(s) Oral BID 01/09/20 24 024 Inactive REFILL REQUEST FOR CYCLE THAT BEGINS 01/30, THANK YOU! sertraline 50 mg tablet RxNorm: 017889 TAKE 1 TABLET BY MOUTH ONCE DAILY. TAKE ALONG WITH 100 MG TABLET DAILY FOR A TOTAL DOSE OF 150 MG 01/09/20 24 024 Inactive REFILL REQUEST FOR CYCLE THAT BEGINS 01/30, THANK YOU! risperidone 0.5 mg tablet RxNorm: 811335 Take 1 Tablet(s) Oral BID 01/07/20 24 024 Inactive levofloxacin 500 mg tablet RxNorm: 116341 Take 1 Tablet(s) Oral QD 12/31/19 24 024 Inactive acetaminophen 500 mg tablet RxNorm: 045486 Take 2 Tablet(s) Oral TID 12/31/19 24 024 Inactive levofloxacin 500 mg tablet RxNorm: 746886 Take 1 Tablet(s) Oral QD 12/31/19 24 024 Inactive divalproex ER 250 mg tablet,extended release 24 hr RxNorm: 7114049 TAKE 1 TABLET BY MOUTH AT BEDTIME HAZARDOUS DRUG-DOUBLE GLOVE 10/21/19 24 048 Active CYCLE FILL REFILL REQUEST FOR CYCLE FILL THAT STARTS 11/08/2023. risperidone 1 mg tablet RxNorm: 363151 Take 1 Tablet(s) Oral BID 10/21/19 24 024 Inactive CYCLE FILL REFILL REQUEST FOR CYCLE FILL THAT STARTS 11/08/2023. acetaminophen 500 mg tablet RxNorm: 995729 Take 2 Tablet(s) Oral BID as needed 09/13/19 24 024 Inactive Tylenol Extra Strength 500 mg tablet RxNorm: 070948 Take 2 Tablet(s) Oral BID as needed 09/13/19 24 024 Inactive trazodone 50 mg tablet RxNorm: 364765 Take 1 Tablet(s) Oral QHS every night at bedtime 09/13/19 24 024 Inactive quetiapine 100 mg tablet RxNorm: 690372 Take 1.5 Tablet(s) Oral HS at bed time 09/13/19 24 024 Inactive Senexon-S 8.6 mg-50 mg tablet RxNorm: 8573933 Take 1 Tablet(s) Oral BID as needed 09/13/19 24 025 Inactive sertraline 100 mg tablet RxNorm: 518736 Take 1.5 Tablet(s) Oral QD 09/13/19 24 024 Inactive Pain Reliever Plus 250 mg-250 mg-65 mg tablet RxNorm: 856872 Take 2 Tablet(s) Oral QD as needed 09/13/19 24 024 Inactive sertraline 100 mg tablet RxNorm: 481718 Take 1 Tablet(s) Oral QD 07/29/19 024 Inactive Please authorize cycle refill. Thanks. acetaminophen 500 mg tablet RxNorm: 534054 Take 2 Tablet(s) Oral BID as needed 07/20/19 24 Inactive acetaminophen 500 mg tablet RxNorm: 299725 Take 2 Tablet(s) Oral BID as needed 07/20/19 24 024 Inactive sertraline 100 mg tablet RxNorm: 952220 Take 1 Tablet(s) Oral QD 07/13/19 024 Inactive donepezil 5 mg tablet RxNorm: 166321 TAKE ONE-HALF TABLET (2.5MG) BY MOUTH ONCE DAILY 07/05/20 Inactive Cycle refill request. Cycle restarts (07/19/23). risperidone 1 mg tablet RxNorm: 868227 Take 1 Tablet(s) Oral HS at bed time 06/25/20 024 Inactive trazodone 50 mg tablet RxNorm: 096948 Take 1 Tablet(s) Oral QHS every night at bedtime as needed 06/25/20 024 Inactive quetiapine 25 mg tablet RxNorm: 252533 Take 1 Tablet(s) Oral Q4H every four hours as needed 06/25/20 23 024 Inactive Senna-S 8.6 mg-50 mg tablet RxNorm: 891042 Take 1 Tablet(s) Oral BID as needed 06/25/20 23 023 Inactive trazodone 50 mg tablet RxNorm: 160335 Take 1 Tablet(s) Oral QHS every night at bedtime as needed 06/25/20 023 Inactive Senna-S 8.6 mg-50 mg tablet RxNorm: 699573 Take 1 Tablet(s) Oral BID as needed 06/25/20 024 Inactive acetaminophen 500 mg tablet RxNorm: 608690 Take 2 Tablet(s) Oral BID as needed 06/18/20 024 Inactive acetaminophen 500 mg tablet RxNorm: 146498 Take 2 Tablet(s) Oral BID as needed 06/18/20 23 023 Inactive Excedrin Extra Strength 250 mg-250 mg-65 mg tablet RxNorm: 356311 Take 2 Tablet(s) Oral QD as needed 06/18/20 023 Inactive Excedrin Extra Strength 250 mg-250 mg-65 mg tablet RxNorm: 205687 Take 2 Tablet(s) Oral QD as needed 06/18/20 024 Inactive risperidone 1 mg tablet RxNorm: 813329 Take 1 Tablet(s) Oral BID 06/04/20 023 Inactive quetiapine 25 mg tablet RxNorm: 902217 Take 1 Tablet(s) Oral BID as needed 06/04/20 023 Inactive trazodone 50 mg tablet RxNorm: 653708 Take 1 Tablet(s) Oral QHS every night at bedtime 06/04/20 023 Inactive donepezil 10 mg tablet RxNorm: 890344 Take 1 Tablet(s) Oral QD 06/04/20 024 Inactive risperidone 1 mg tablet RxNorm: 603855 Take 1 Tablet(s) Oral BID as needed 06/04/20 023 Inactive Senexon-S 8.6 mg-50 mg tablet RxNorm: 2661465 Take 1 Tablet(s) Oral BID 06/03/20 023 Inactive Please authorize quantity 90 day supply with PRN refills for assisted living patient. Their cycle restarts 06/14/23. Thank you! memantine 5 mg tablet RxNorm: 032465 TAKE ONE-HALF TABLET (2.5MG) BY MOUTH TWICE DAILY 06/03/20 023 Inactive Please authorize quantity 90 day supply with PRN refills for assisted living patient. Their cycle restarts 06/14/23. Thank you! divalproex 125 mg capsule,delayed release sprinkle RxNorm: 7462990 TAKE 4 CAPSULES (500MG) BY MOUTH AT BEDTIME 06/03/20 024 Inactive Please authorize quantity 90 day supply with PRN refills for assisted living patient. Their cycle restarts 06/14/23. Thank you! sertraline 50 mg tablet RxNorm: 778611 Take 1 Tablet(s) Oral QD 06/03/20 024 Inactive Please authorize quantity 90 day supply with PRN refills for assisted living patient. Their cycle restarts 06/14/23. Thank you! naproxen 500 mg tablet RxNorm: 146086 Take 1 Tablet(s) Oral BID 01/23/20 023 Inactive naproxen 500 mg tablet RxNorm: 892551 Take 1 Tablet(s) Oral BID 01/23/20 023 Inactive naproxen 500 mg tablet RxNorm: 727461 Take 1 Tablet(s) Oral BID 01/23/20 023 Inactive mirtazapine 15 mg tablet RxNorm: 933167 Take 1 Tablet(s) Oral HS at bed time 01/01/20 023 Inactive CYCLE FILL REQUEST FOR CYCLE THAT STARTS 01/04/2023 escitalopram 10 mg tablet RxNorm: 263365 Take 1 Tablet(s) Oral QAM every morning 12/14/19 023 Inactive Cycle refill request. Cycle restarts (01/04/23). cholecalciferol (vitamin D3) 50 mcg (2,000 unit) tablet RxNorm: 194599 Take 1 Tablet(s) Oral QAM every morning 12/14/19 23 023 Inactive Cycle refill request. Cycle restarts (01/04/23). melatonin 10 mg sublingual tablet RxNorm: 0253719 TAKE 1 TABLET BY MOUTH AT BEDTIME NOTE DOSAGE/STRENGTH* 12/14/19 023 Inactive Cycle refill request. Cycle restarts (01/04/23). rivastigmine 1.5 mg capsule RxNorm: 006371 Take 1 Capsule(s) Oral BID 12/14/19 023 Inactive Cycle refill request. Cycle restarts (01/04/23). quetiapine 100 mg tablet RxNorm: 730100 Take 1 Tablet(s) Oral HS at bed time 12/14/19 23 023 Inactive Cycle refill request. Cycle restarts (01/04/23). levothyroxine 50 mcg tablet RxNorm: 817888 TAKE 1 TABLET BY MOUTH ONCE DAILY BEFORE BREAKFAST 12/14/19 23 023 Inactive Cycle refill request. Cycle restarts (01/04/23). amlodipine 5 mg tablet RxNorm: 411602 Take 1 Tablet(s) Oral QAM every morning 12/14/19 23 023 Inactive Cycle refill request. Cycle restarts (01/04/23). buspirone 15 mg tablet RxNorm: 865526 Take 1 Tablet(s) Oral BID 12/14/19 23 023 Inactive Cycle refill request. Cycle restarts (01/04/23). amitriptyline 10 mg tablet RxNorm: 398439 Take 1 Tablet(s) Oral HS at bed time 12/14/19 23 023 Inactive Cycle refill request. Cycle restarts (01/04/23). levofloxacin 500 mg tablet RxNorm: 698839 Take 1 Tablet(s) Oral QD 11/24/19 23 023 Inactive levofloxacin 500 mg tablet RxNorm: 894781 Take 1 Tablet(s) Oral QD 11/24/19 23 023 Inactive levothyroxine 50 mcg tablet RxNorm: 775294 Take 1 Tablet(s) Oral QD before Breakfast 11/18/19 23 023 Inactive amitriptyline 10 mg tablet RxNorm: 378559 Take 1 Tablet(s) Oral QHS every night at bedtime 11/18/19 23 023 Inactive acetaminophen 500 mg tablet RxNorm: 302903 2 Tablet(s) Oral TID as needed 11/18/19 23 023 Inactive amlodipine 5 mg tablet RxNorm: 951709 Take 1 Tablet(s) Oral QAM every morning 11/18/19 23 023 Inactive melatonin 5 mg tablet RxNorm: 309033 Give 1 Tablet(s) Oral QHS every night at bedtime 11/18/19 23 023 Inactive buspirone 15 mg tablet RxNorm: 521648 Take 1 Tablet(s) Oral BID 11/18/19 23 023 Inactive Seroquel 25 mg tablet RxNorm: 041740 Take 1 Tablet(s) Oral QHS every night at bedtime 11/18/19 023 Inactive cholecalciferol (vitamin D3) 50 mcg (2,000 unit) tablet RxNorm: 946485 Take 1 Tablet(s) Oral QD 11/18/19 023 Inactive rivastigmine 1.5 mg capsule RxNorm: 859460 Take 2 Capsule(s) Oral BID 11/18/19 023 Inactive mirtazapine 15 mg tablet RxNorm: 532203 Take 1 Tablet(s) Oral QHS every night at bedtime 11/18/19 023 Inactive aspirin-acetaminoph en-caffeine 250 mg-250 mg-65 mg tablet RxNorm: 832765 Take 2 Tablet(s) Oral QD as needed 11/18/19 023 Inactive escitalopram 10 mg tablet RxNorm: 832592 Take 1 Tablet(s) Oral QD 11/18/19 023 Inactive Medication Administered No Medication Administered data Immunizations Vaccine Codes Dose Date Status Influenza CVX: 205 1.0 04/06/2022 Covid-19 (MediTAP mR NA, LNP-S, PF, 30 mcg/0.3 mL [...] 33 1.0 09/04/2000 Vital Signs Date Vital 09/15/2024 Blood Pressure 1: 137/57 Code: 8480-6 Heart Rate 1: 70 bpm Code: 8867-4 Respiratory Rate: 19 bpm Temperature: 36.1 (C) / 96.9 (F) [...] Encounter Performer Location Location Address Codes Date ([address]14) Home or Residence Visit Est Pt - High Level, 60 mins Diagnosis: Paresis[ICD10: G83.9] Diagnosis: Urinary frequency[ICD10: R35.0] Diagnosis: UTI (urinary tract infection)[ICD10: N39.0] Diagnosis: Pressure injury of right buttock, stage 2[SNOMED: 47669857550310] Diagnosis: Pressure injury of left buttock, stage 2[SNOMED: 05885559066737] Diagnosis: Protein-calorie malnutrition, mild[SNOMED: 474389434] Aidamelanie Barbaell [facility] at [address] [address] CPT-4: 78156 09/15/2024 Plan of Care Planned Activity Notes Codes Status Date Patient Education: Patient Medication Summary Completed 09/15/2024 Patient Education: Influenza Complet ed 09/15/2024 Appointment: Orin Aida WPtel: [address] [place], [place] [phone] [place] F/U 12/31/2023 Appointment: OrinEriccy WPtel: [address] [place], [place] [phone] [place] F/U 09/17/2023 Appointment: Aida Sr WPtel: [address] [place], [place] [phone] [place] F/U 07/23/2023 Appointment: Aida Sr WPtel: [address] [place], [place] [phone] [place] F/U 06/25/2023 Appointment: Bam Frey: [address] [place], [place] [phone] [place] SDV 01/22/2023 Appointment: Aida Sr WPtel: [address] [place], [place] [phone] NPAWV 11/20/2022 Referral: General Psychiatrist Referral Patient/Family Scheduling Appointment Referral: VIA Orthoped[facility]- I n Home Visits WPtel: [address], [address] [id number] [place] Referral Patient/Family Sched uling Appointment Instructions Comment Date Elderly female residing in [facility] assisted living at [facility] in [place]. PMHx: dementia, cluster B personality traits, depression, hypothyroidism, HTN, anxiety, suicidal ideationsPOLST: FULL CODEFred Anatoly-spouse, Btfq: November/isa-therapist: weekly calls usually on -:1 visits 3 times weekly 01/28/2024 Pressure injury of left butt ock, stage 2 Will consult chcf to evaluate and treat. Face to face completed. Paresis Increase in lower extremity weakness. Will consult PT/OT to evaluate and treat. Face to face completed. Okay to use EZ stand with transfers. Protein-calorie malnutrition, mild Will start boost 1 BID/qd PRN. Pressure injury of right buttock, stage 2 Will consult [facility] to evaluate and treat. Face to face completed. UTI (urinary tract infection) 09/09/24 UC >100,000 CFC/ml Streptococcus anginosus (A). Continue cefdinir 300mg BID x 7 days as ordered. Urinary frequency 3/ Bladder scan PVR with 713ml remaining. Garcia catheter inserted in ED. Will consult chcf for garcia catheter care management and trialing removing catheter. . 09/15/2024
--- OUTSIDE RECORDS SUMMARY | 2024-09-16 19:18 | XMS_ITS | Encounter Summary ---
Author Organization [facility] Address [address] [place] [address] Care Team Providers Care Solutions Analyst Name Role Phone Yaneth Reyes MD Primary Care P rovider [place], Subacute Unit St. Unavailable [phone] Yaneth Reyes MD Unavailable Unknown, Provider Primary Care Provider Unavaila ble Provider, No Primary Primary Care Provider Unava ilable Yaneth Reyes MD Unavailable Yaneth Reyes MD Primary Care P rovider Encounter Details Date Type Department Care Team (Late st Contact Info) Description 10/25/1985 Scan [facility] [address] [place] [address] Social History Tobacco Use Types Packs/Day Years Used Date Smoking Tobacco: Never Assessed Comments Unknown Sex and Gender Information Value Date Recorded Sex Assigned at Not on file Legal Sex Female 10:54 PM ARMOURED CAR ESCORT Gender Identity Not on file Sexual Orientation Not on file documented as of this encounter Procedure Notes * LINDA, SCAN - 10/25/1985 4:54 PM CSTAssociated Order(s): RADIOLOGY - S URED CAR ESCORT documented in this encounter Plan of Treatment Not on file documented as of this encounter Procedures Procedure Name Priority Date/Time Associated Diagnosis Comments RADIOLOGY - S 10/25/1985 4:54 PM ARMOURED CAR ESCORT documented in this encounter Results * RADIOLOGY - S (10/25/1985 4:54 PM ARMOURED CAR ESCORT) Anatomical Region Laterality Modality Other Narrative Procedure [...] documented as of this encounter Care Teams Solutions Analyst Relationship Specialty Start Date End Date Yaneth Reyes MD PCP - General 01/12/07 03/07/20 Unknown, Provider . YUMIKO PILLAI [id number] PCP - General 03/08/20 04/06/20 Provider, No Primary . YUMIKO PILLAI [address] PCP - General 04/07/20 04/15/20 Yaneth Reyes MD [address] [place] [id number] PCP - General Family Medicine 04/16/20 Luis Fernando, [facility] [address] [facility] [address] 08/06/17 Yaneth Reyes MD [address] [place] [id number] 08/06/17 04/18/20 Yaneth Reyes MD . REPLACED BY [facility] [place] [address] Family Medicine 04/10/20 04/18/20 documented as of this encounter Additional Source Comments PLEASE NOTE: Replies to this message will not be received.[facility] Include [address] Beds At [facility]
--- OUTSIDE RECORDS SUMMARY | 2024-09-16 19:18 | XMS_ITS | Encounter Summary ---
Author Organization [facility] Address [address] [place] [address] Care Team Providers Care Shorts Sifter Name Role Phone Yaneth Reyes MD Primary Care P rovider [place], Subacute Unit St. Unavailable Yaneth Reyes MD Unavailable Unknown, Provider Primary Care Provider Unavaila ble Provider, No Primary Primary Care Provider Unava ilable Yaneth Reyes MD Unavailable Yaneth Reyes MD Primary Care P rovider Encounter Details Date Type Department Care Team (Late st Contact Info) Description 10/13/1988 Scan [facility] [address] [place] [address] Social History Tobacco Use Types Packs/Day Years Used Date Smoking Tobacco: Never Assessed Comments Unknown Sex and Gender Information Value Date Recorded Sex Assigned at Not on file Legal Sex Female 10:54 PM CHIP PERSON Gender Identity Not on file Sexual Orientation Not on file documented as of this encounter Procedure Notes * LINDA, SCAN - 07/04/1989 4:54 PM CSTAssociated Order(s): RADIOLOGY - S PERSON * LINDA, SCAN - 10/13/1988 4:54 PM CDTAssociated Order(s): PATHOLOGY REPORT - S PERSON * LINDA, SCAN - 10/13/1988 4:54 PM CDTAssociated Order(s): RADIOLOGY - S PERSON * LINDA, SCAN - 09/15/1988 4:54 PM CSTAssociated Order(s): RADIOLOGY - S PERSON documented in this encounter Plan of Treatment Not on file documented as of this encounter Procedures Procedure Name Priority Date/Time Associated Diagnosis Comments RADIOLOGY - S 07/04/1989 4:54 PM CHIP PERSON RADIOLOGY - S 10/13/1988 4:54 PM CDT PATHOLOGY REPORT - S 10/13/1988 4:54 PM CDT RADIOLOGY - S 09/15/1988 4:54 PM CHIP PERSON documented in this encounter Results * RADIOLOGY - S (07/04/1989 4:54 PM CHIP PERSON) Anatomical Region Laterality Modality Other Narrative Procedure [...] * RADIOLOGY - S (09/15/1988 4:54 PM CHIP PERSON) Anatomical Region Laterality Modality Other Narrative Procedure [...] documented as of this encounter Care Teams Shorts Sifter Relationship Specialty Start Date End Date Yaneth Reyes MD PCP - General 01/12/07 03/07/20 Unknown, Provider . YUMIKO PILLAI [address] PCP - General 03/08/20 04/06/20 Provider, No Primary . YUMIKO PILLAI [address] PCP - General 04/07/20 04/15/20 Yaneth Reyes MD [address] [place] [id number] PCP - General Family Medicine 04/16/20 Luis Fernando [facility] [address] [facility] [place] [address] 08/06/17 Yaneth Reyes MD [address] [facility] [place] [id number] 08/06/17 04/18/20 Yaneth Reyes MD . YUMIKO PILLAI [address] Family Medicine 04/10/20 04/18/20 documented as of this encounter Additional Source Comments PLEASE NOTE: Replies to this message will not be received.[facility]
--- OUTSIDE RECORDS SUMMARY | 2024-09-16 19:18 | XMS_ITS | Encounter Summary ---
[facility] Organization [facility] Address [address] [place] [address] Care Team Providers Care Metal Model Builder Name Role Phone Yaneth Reyes MD Primary Care P rovider [place] Subacute Unit St. Unavailable Yaneth Reyes MD Unavailable Unknown, Provider Primary Care Provider Unavaila ble Provider, No Primary Primary Care Provider Unava ilable Yaneth Reyes MD Unavailable Yaneth Reyes MD Primary Care P rovider Encounter Details Date Type Department Care Team (Late st Contact Info) Description 02/11/1988 [facility] [address] [place] [address] Social History Tobacco Use Types Packs/Day Years Used Date Smoking Tobacco: Never Assessed Comments Unknown Sex and Gender Information Value Date Recorded Sex Assigned at Not on file Legal Sex Female 10:54 PM GLYCERIN OPERATOR Gender Identity Not on file Sexual Orientation Not on file documented as of this encounter Procedure Notes * LINDA, SCAN - 02/11/1988 4:54 PM CDTAssociated Order(s): RADIOLOGY - S ERIN OPERATOR documented in this encounter Plan of Treatment [...] documented as of this encounter Care Teams Metal Model Builder Relationship Specialty Start Date End Date Yaneth Reyes MD PCP - General 01/12/07 03/07/20 Unknown, Provider . [place] [address] PCP - General 03/08/20 04/06/20 Provider, No Primary . [place] [address] PCP - General 04/07/20 04/15/20 Yaneth Reyes MD [address] [place] [id number] PCP - General Family Medicine 04/16/20 [place] [address] [facility] [place] [address] 08/06/17 Yaneth Reyes MD [address] [place] [id number] 08/06/17 04/18/20 [place] [address] Family Medicine 04/10/20 04/18/20 documented as of this encounter Additional Source Comments PLEASE NOTE: Replies to this message will not be received.[facility] and [facility]
--- OUTSIDE RECORDS SUMMARY | 2024-09-16 19:19 | XMS_ITS | CCD ---
Author Name Aida Sr CNP Address [address] [facility] [facility] [address] [place] [address] Phone Organization [facility] Phone Care Team Providers Care Police Investigator Name Role Phone Orin RADHAAida Primary Care Provider Unavaila ble Orin RADHAAida Chronic Care Management Unavai lable Summary Purpose DataExchange Insurance Providers Payer name Policy type / Coverage type Covered democrat ID Effective Begin Date Effective End Date [email or web address] Commercial Insurance [id number] Unknown Family history Runs in the family Diagnosis Age At Onset No Known Diseases N/A Social History Social History Element Codes Description Effec tive Dates Marital status Unknown 01/28/2024 Living arrangements Unknown Memory Care 01/28/[address]: 752134557 Never smoker 01/[address]: 062954772 No Alcohol Consum ption 01/28/2024 Sexually Active? [...] Condition St atus Acute cough SNOMED CT: 239991581 [id number] ICD-10: R05.1 ICD-9: 786.2 09/08/2024 Active Dementia ICD-10: F03.90 ICD-9: 294.20 09/08/2024 Active HTN (hypertension) ICD-10: I10 ICD-9: 401.9 09/08/2024 Active Hypothyroid ICD-10: E03.9 ICD-9: 244.9 09/08/2024 Active Insomnia ICD-10: G47.00 ICD-9: 780.52 09/08/2024 Active Left elbow pain SNOMED CT: 14543403 ICD-10: M25.522 ICD-9: 719.42 09/08/2024 Active Urinary frequency SNOMED CT: 218978881 ICD-10: R35.0 ICD-9: 788.41 09/08/2024 Active Frailty [...] Plus 250 mg-250 mg-65 mg tablet RxNorm: 185379 Take 1 Tablet(s) Oral QD as needed 09/09/19 No Stop Date Active cefdinir 300 mg capsule RxNorm: 102875 Take 1 Capsule(s) Oral BID 09/09/19 25 025 Inactive trazodone 50 mg tablet RxNorm: 149521 Take 1 Tablet(s) Oral QHS every night at bedtime as needed 09/09/19 25 026 Active loperamide 2 mg tablet RxNorm: 295568 Take 1 Tablet(s) Oral BID as needed 09/09/19 25 025 Active cefdinir 300 mg capsule RxNorm: 672017 Take 1 Capsule(s) Oral BID 09/09/19 25 025 Inactive trazodone 50 mg tablet RxNorm: 227985 Take 1 Tablet(s) Oral QHS every night at bedtime 09/08/19 25 025 Inactive Calmoseptine 0.44 %-20.6 % topical ointment RxNorm: 7760099 Apply Topical TID as needed to Buttocks and affected areas 08/26/19 25 025 Active Calmoseptine 0.44 %-20.6 % topical ointment RxNorm: 7578550 Apply ointment Topical TID as needed to Buttocks and affected areas 08/26/19 25 025 Inactive ondansetron 4 mg disintegrating tablet RxNorm: 610324 Take 1 Tablet(s) Oral Q4H every four hours as needed 08/25/19 25 025 Inactive ondansetron 4 mg disintegrating tablet RxNorm: 360096 Take 1 Tablet(s) Oral Q4H every four hours as needed 08/25/19 25 025 Inactive sertraline 100 mg tablet RxNorm: 080303 Take 1 Tablet(s) Oral QD 08/14/19 25 025 Inactive REFILL REQUEST FOR CYCLE THAT STARTS ON 09/11/24. THANK YOU. donepezil 5 mg tablet RxNorm: 205982 TAKE ONE-HALF TABLET (2.5MG) BY MOUTH ONCE DAILY 07/20/19 25 049 Active CYCLE FILL REFILL REQUEST FOR CYCLE FILL THAT STARTS 08/14/2024 Senexon-S 8.6 mg-50 mg tablet RxNorm: 1262983 Take 1 Tablet(s) Oral BID as needed 06/30/20 24 028 Active risperidone 1 mg tablet RxNorm: 141845 Take 1 Tablet(s) Oral BID 06/26/20 24 025 Active memantine 5 mg tablet RxNorm: 835612 TAKE ONE-HALF TABLET (2.5MG) BY MOUTH TWICE DAILY 06/23/20 24 049 Active REFILL REQUEST FOR CYCLE THAT BEGINS 07/17, THANK YOU risperidone 0.5 mg tablet RxNorm: 312178 Take 1 Tablet(s) Oral QAM every morning 03/14/20 024 Inactive acetaminophen 500 mg tablet RxNorm: 363670 Take 2 Tablet(s) Oral TID as needed 02/22/20 24 No Stop Date Active risperidone 1 mg tablet RxNorm: 436128 Take 1 Tablet(s) Oral HS at bed time 02/22/20 24 024 Inactive acetaminophen 500 mg tablet RxNorm: 089312 Take 2 Tablet(s) Oral TID as needed 02/22/20 24 024 Inactive sertraline 100 mg tablet RxNorm: 707087 Take 1 Tablet(s) Oral QD Take w/ 50mg tablet 01/27/20 24 025 Active sertraline 50 mg tablet RxNorm: 390393 Take 1 Tablet(s) Oral QD Take w/ 100mg tablet 01/27/20 24 025 Active acetaminophen 500 mg tablet RxNorm: 804584 Take 2 Tablet(s) Oral TID as needed 01/27/20 24 024 Inactive amlodipine 5 mg tablet RxNorm: 778048 Take 1 Tablet(s) Oral QAM every morning 01/09/20 24 048 Active REFILL REQUEST FOR CYCLE THAT BEGINS 01/30, THANK YOU! levothyroxine 50 mcg tablet RxNorm: 161671 Take 1 Tablet(s) Oral QD BEFORE BREAKFAST 01/09/20 24 048 Active REFILL REQUEST FOR CYCLE THAT BEGINS 01/30, THANK YOU! cholecalciferol (vitamin D3) 50 mcg (2,000 unit) tablet RxNorm: 423767 Take 1 Tablet(s) Oral QAM every morning 01/09/20 24 048 Active REFILL REQUEST FOR CYCLE THAT BEGINS 01/30, THANK YOU! risperidone 0.5 mg tablet RxNorm: 242010 Take 1 Tablet(s) Oral BID 01/09/20 24 024 Inactive REFILL REQUEST FOR CYCLE THAT BEGINS 01/30, THANK YOU! sertraline 50 mg tablet RxNorm: 087726 TAKE 1 TABLET BY MOUTH ONCE DAILY. TAKE ALONG WITH 100 MG TABLET DAILY FOR A TOTAL DOSE OF 150 MG 01/09/20 24 024 Inactive REFILL REQUEST FOR CYCLE THAT BEGINS 01/30, THANK YOU! risperidone 0.5 mg tablet RxNorm: 767791 Take 1 Tablet(s) Oral BID 01/07/20 24 024 Inactive levofloxacin 500 mg tablet RxNorm: 024670 Take 1 Tablet(s) Oral QD 12/31/19 24 024 Inactive acetaminophen 500 mg tablet RxNorm: 073602 Take 2 Tablet(s) Oral TID 12/31/19 24 024 Inactive levofloxacin 500 mg tablet RxNorm: 928439 Take 1 Tablet(s) Oral QD 12/31/19 24 024 Inactive divalproex ER 250 mg tablet,extended release 24 hr RxNorm: 5802880 TAKE 1 TABLET BY MOUTH AT BEDTIME HAZARDOUS DRUG-DOUBLE GLOVE 10/21/19 24 048 Active CYCLE FILL REFILL REQUEST FOR CYCLE FILL THAT STARTS 11/08/2023. risperidone 1 mg tablet RxNorm: 454659 Take 1 Tablet(s) Oral BID 10/21/19 24 024 Inactive CYCLE FILL REFILL REQUEST FOR CYCLE FILL THAT STARTS 11/08/2023. acetaminophen 500 mg tablet RxNorm: 214342 Take 2 Tablet(s) Oral BID as needed 09/13/19 24 Inactive Tylenol Extra Strength 500 mg tablet RxNorm: 552069 Take 2 Tablet(s) Oral BID as needed 09/13/19 24 Inactive trazodone 50 mg tablet RxNorm: 637045 Take 1 Tablet(s) Oral QHS every night at bedtime 09/13/19 24 024 Inactive quetiapine 100 mg tablet RxNorm: 969059 Take 1.5 Tablet(s) Oral HS at bed time 09/13/19 24 024 Inactive Senexon-S 8.6 mg-50 mg tablet RxNorm: 3170395 Take 1 Tablet(s) Oral BID as needed 09/13/19 24 025 Inactive sertraline 100 mg tablet RxNorm: 220811 Take 1.5 Tablet(s) Oral QD 09/13/19 24 024 Inactive Pain Reliever Plus 250 mg-250 mg-65 mg tablet RxNorm: 837078 Take 2 Tablet(s) Oral QD as needed 09/13/19 24 024 Inactive sertraline 100 mg tablet RxNorm: 382074 Take 1 Tablet(s) Oral QD 07/29/19 24 024 Inactive Please authorize cycle refill. Thanks. acetaminophen 500 mg tablet RxNorm: 937003 Take 2 Tablet(s) Oral BID as needed 07/20/19 24 024 Inactive acetaminophen 500 mg tablet RxNorm: 085458 Take 2 Tablet(s) Oral BID as needed 07/20/19 24 024 Inactive sertraline 100 mg tablet RxNorm: 480735 Take 1 Tablet(s) Oral QD 07/13/19 024 Inactive donepezil 5 mg tablet RxNorm: 322126 TAKE ONE-HALF TABLET (2.5MG) BY MOUTH ONCE DAILY 07/05/20 023 Inactive Cycle refill request. Cycle restarts (07/19/23). risperidone 1 mg tablet RxNorm: 801807 Take 1 Tablet(s) Oral HS at bed time 06/25/20 024 Inactive trazodone 50 mg tablet RxNorm: 741991 Take 1 Tablet(s) Oral QHS every night at bedtime as needed 06/25/20 024 Inactive quetiapine 25 mg tablet RxNorm: 740561 Take 1 Tablet(s) Oral Q4H every four hours as needed 06/25/20 024 Inactive Senna-S 8.6 mg-50 mg tablet RxNorm: 506886 Take 1 Tablet(s) Oral BID as needed 06/25/20 023 Inactive trazodone 50 mg tablet RxNorm: 431973 Take 1 Tablet(s) Oral QHS every night at bedtime as needed 06/25/20 023 Inactive Senna-S 8.6 mg-50 mg tablet RxNorm: 093683 Take 1 Tablet(s) Oral BID as needed 06/25/20 024 Inactive acetaminophen 500 mg tablet RxNorm: 651031 Take 2 Tablet(s) Oral BID as needed 06/18/20 024 Inactive acetaminophen 500 mg tablet RxNorm: 845945 Take 2 Tablet(s) Oral BID as needed 06/18/20 23 023 Inactive Excedrin Extra Strength 250 mg-250 mg-65 mg tablet RxNorm: 442753 Take 2 Tablet(s) Oral QD as needed 06/18/20 23 023 Inactive Excedrin Extra Strength 250 mg-250 mg-65 mg tablet RxNorm: 312802 Take 2 Tablet(s) Oral QD as needed 06/18/20 23 024 Inactive risperidone 1 mg tablet RxNorm: 995410 Take 1 Tablet(s) Oral BID 06/04/20 23 023 Inactive quetiapine 25 mg tablet RxNorm: 486453 Take 1 Tablet(s) Oral BID as needed 06/04/20 023 Inactive trazodone 50 mg tablet RxNorm: 609088 Take 1 Tablet(s) Oral QHS every night at bedtime 06/04/20 023 Inactive donepezil 10 mg tablet RxNorm: 885561 Take 1 Tablet(s) Oral QD 06/04/20 024 Inactive risperidone 1 mg tablet RxNorm: 213720 Take 1 Tablet(s) Oral BID as needed 06/04/20 023 Inactive Senexon-S 8.6 mg-50 mg tablet RxNorm: 2335174 Take 1 Tablet(s) Oral BID 06/03/20 023 Inactive Please authorize quantity 90 day supply with PRN refills for assisted living patient. Their cycle restarts 06/14/23. Thank you! memantine 5 mg tablet RxNorm: 194220 TAKE ONE-HALF TABLET (2.5MG) BY MOUTH TWICE DAILY 06/03/20 023 Inactive Please authorize quantity 90 day supply with PRN refills for assisted living patient. Their cycle restarts 06/14/23. Thank you! divalproex 125 mg capsule,delayed release sprinkle RxNorm: 9291679 TAKE 4 CAPSULES (500MG) BY MOUTH AT BEDTIME 06/03/20 024 Inactive Please authorize quantity 90 day supply with PRN refills for assisted living patient. Their cycle restarts 06/14/23. Thank you! sertraline 50 mg tablet RxNorm: 258371 Take 1 Tablet(s) Oral QD 06/03/20 024 Inactive Please authorize quantity 90 day supply with PRN refills for assisted living patient. Their cycle restarts 06/14/23. Thank you! naproxen 500 mg tablet RxNorm: 951192 Take 1 Tablet(s) Oral BID 01/23/20 023 Inactive naproxen 500 mg tablet RxNorm: 155756 Take 1 Tablet(s) Oral BID 07/17/20 23 07/26/2 023 Inactive naproxen 500 mg tablet RxNorm: 814535 Take 1 Tablet(s) Oral BID 01/23/20 23 023 Inactive mirtazapine 15 mg tablet RxNorm: 465600 Take 1 Tablet(s) Oral HS at bed time 01/01/20 23 023 Inactive CYCLE FILL REQUEST FOR CYCLE THAT STARTS 01/04/2023 escitalopram 10 mg tablet RxNorm: 193552 Take 1 Tablet(s) Oral QAM every morning 12/14/19 23 023 Inactive Cycle refill request. Cycle restarts (01/04/23). cholecalciferol (vitamin D3) 50 mcg (2,000 unit) tablet RxNorm: 564593 Take 1 Tablet(s) Oral QAM every morning 12/14/19 23 023 Inactive Cycle refill request. Cycle restarts (01/04/23). melatonin 10 mg sublingual tablet RxNorm: 7633487 TAKE 1 TABLET BY MOUTH AT BEDTIME NOTE DOSAGE/STRENGTH* 12/14/19 23 023 Inactive Cycle refill request. Cycle restarts (01/04/23). rivastigmine 1.5 mg capsule RxNorm: 074939 Take 1 Capsule(s) Oral BID 12/14/19 023 Inactive Cycle refill request. Cycle restarts (01/04/23). quetiapine 100 mg tablet RxNorm: 447287 Take 1 Tablet(s) Oral HS at bed time 12/14/19 23 023 Inactive Cycle refill request. Cycle restarts (01/04/23). levothyroxine 50 mcg tablet RxNorm: 793607 TAKE 1 TABLET BY MOUTH ONCE DAILY BEFORE BREAKFAST 12/14/19 23 023 Inactive Cycle refill request. Cycle restarts (01/04/23). amlodipine 5 mg tablet RxNorm: 250183 Take 1 Tablet(s) Oral QAM every morning 12/14/19 23 023 Inactive Cycle refill request. Cycle restarts (01/04/23). buspirone 15 mg tablet RxNorm: 492763 Take 1 Tablet(s) Oral BID 12/14/19 23 023 Inactive Cycle refill request. Cycle restarts (01/04/23). amitriptyline 10 mg tablet RxNorm: 354103 Take 1 Tablet(s) Oral HS at bed time 12/14/19 23 023 Inactive Cycle refill request. Cycle restarts (01/04/23). levofloxacin 500 mg tablet RxNorm: 266932 Take 1 Tablet(s) Oral QD 11/24/19 23 023 Inactive levofloxacin 500 mg tablet RxNorm: 620395 Take 1 Tablet(s) Oral QD 11/24/19 23 023 Inactive levothyroxine 50 mcg tablet RxNorm: 518701 Take 1 Tablet(s) Oral QD before Breakfast 11/18/19 023 Inactive amitriptyline 10 mg tablet RxNorm: 948153 Take 1 Tablet(s) Oral QHS every night at bedtime 11/18/19 023 Inactive acetaminophen 500 mg tablet RxNorm: 232589 2 Tablet(s) Oral TID as needed 11/18/19 23 023 Inactive amlodipine 5 mg tablet RxNorm: 600626 Take 1 Tablet(s) Oral QAM every morning 11/18/19 023 Inactive melatonin 5 mg tablet RxNorm: 583350 Give 1 Tablet(s) Oral QHS every night at bedtime 11/18/19 23 023 Inactive buspirone 15 mg tablet RxNorm: 475924 Take 1 Tablet(s) Oral BID 11/18/19 023 Inactive Seroquel 25 mg tablet RxNorm: 233943 Take 1 Tablet(s) Oral QHS every night at bedtime 11/18/19 23 023 Inactive cholecalciferol (vitamin D3) 50 mcg (2,000 unit) tablet RxNorm: 035959 Take 1 Tablet(s) Oral QD 11/18/19 23 023 Inactive rivastigmine 1.5 mg capsule RxNorm: 999351 Take 2 Capsule(s) Oral BID 11/18/19 23 023 Inactive mirtazapine 15 mg tablet RxNorm: 285279 Take 1 Tablet(s) Oral QHS every night at bedtime 11/18/19 023 Inactive aspirin-acetaminoph en-caffeine 250 mg-250 mg-65 mg tablet RxNorm: 044738 Take 2 Tablet(s) Oral QD as needed 11/18/19 023 Inactive escitalopram 10 mg tablet RxNorm: 980316 Take 1 Tablet(s) Oral QD 11/18/19 023 Inactive Medication Administered No Medication Administered data Immunizations Vaccine Codes Dose Date Status Influenza CVX: 205 1.0 04/06/2022 Covid-19 ([employer] mR NA, LNP-S, PF, 30 mcg/0.3 mL [...] Item Item Code Result Date Service Location CBC with Platelets Differential [id number] CBC with Platelets Differential CANC 09/13/19 25 Unknown CBC with Platelets Differential [id number] CBC WITH PLATELETS & DIFFERENTIAL CANCELLED 09/13/19 25 Unknown Functional Status Functional / Cognitive Codes [...] Codes Status Date Appointment: Aida Sr WPtel: [address] [place] [address] [id number] [place] F/U 12/31/2023 Appointment: Aida Sr WPtel: [address] [place], [place] [phone] [place] F/U 09/17/2023 Appointment: Aida Sr WPtel: [address] [place], [place] [phone] [place] F/U 07/23/2023 Appointment: Aida Sr WPtel: [address] [place] [address] [id number] [place] F/U 06/25/2023 Appointment: Bam Frey: [address] [place], [place] [phone] [place] SDV 01/22/2023 Appointment: Aida Sr WPtel: [address] [place], [place] [phone] NPAWV 11/20/2022 Referral: General Psychiatrist Referral Patient/Family Scheduling Appointment Referral: [facility]IA [facility]- [facility] n Home Visits WPtel: [address], [address] [id number] [place] Referral Patient/Family Sched uling Appointment Instructions Comment Date Elderly female residing in [facility] assisted living at [facility]. PMHx: dementia, cluster B personality traits, depression, hypothyroidism, HTN, anxiety, suicidal ideationsPOLST: FULL CODEFred Anatoly-spouse, Gtbn: November/ham-therapist: weekly calls usually on :1 visits 3 times weekly 01/28/2024
--- OUTSIDE RECORDS SUMMARY | 2024-09-16 19:20 | XMS_ITS | Encounter Summary ---
Author Organization [facility] Address [address] [place] [address] Care Team Providers Care Business Account Specialist Name Role Phone Yaneth Reyes MD Primary Care P rovider [place], Subacute Unit St. Unavailable Yaneth Reyes MD Unavailable Unknown, Provider Primary Care Provider Unavaila ble Provider, No Primary Primary Care Provider Unava ilable Yaneth Reyes MD Unavailable Yaneth Reyes MD Primary Care P rovider Encounter Details Date Type Department Care Team (Late st Contact Info) Description 07/04/2014 Historical Conversion [facility] [address] [place] [address] Paul Alamo MD Social History Tobacco Use Types Packs/Day Years Used Date Smoking Tobacco: Never Smokeless Tobacco: Never Alcohol Use Standard Drinks/Week Comments Yes 0 (1 standard drink = 0.6 oz pur e alcohol) RARE Comments No Sex and Gender Information Value Date Recorded Sex Assigned at Not on file Legal Sex Female 10:54 PM POOL NURSE Gender Identity Not on file Sexual Orientation Not on file Occupation Industry Job Start Date Job End Date retired Not on file Not on file Not on file documented as of this encounter Functional Status * Are you deaf or do you have serious difficulty hearing? Answer Date of Assessment Author No 08/26/2013 9:37 AM POOL NURSE Katy Steel RN documented as of this [...] documented as of this encounter Care Teams Business Account Specialist Relationship Specialty Start Date End Date Yaneth Reyes MD PCP - General 01/12/07 03/07/20 Unknown, [place] [address] PCP - General 03/08/20 04/06/20 Provider, [place] [address] PCP - General 04/07/20 04/15/20 Yaneth Reyes MD [address] [place] [id number] PCP - General Family Medicine 04/16/20 [place], Subacute Unit [facility] [address] [place] [id number] 08/06/17 Yaneth Reyes MD [address] [place] [id number] 08/06/17 04/18/20 Yaneth Reyes MD . [place] [address] Family Medicine 04/10/20 04/18/20 documented as of this encounter Additional Source Comments PLEASE NOTE: Replies to this message will not be received.[facility] and [facility]
--- OUTSIDE RECORDS SUMMARY | 2024-09-16 19:21 | XMS_ITS | Encounter Summary ---
Author Organization [email or web address] Address [address] [place] [address] Care Team Providers Care Chief Controller Name Role Phone Yaneth Reyes MD Primary Care P rovider [place], Subacute Unit St. Unavailable Yaneth Reyes MD Unavailable Unknown, Provider Primary Care Provider Unavaila ble Provider, No Primary Primary Care Provider Unava ilable Yaneth Reyes MD Unavailable Yaneth Reyes MD Primary Care P rovider Encounter Details Date Type Department Care Team (Late st Contact Info) Description 04/18/2016 [facility] [address] [place] [address] Social History Tobacco Use Types Packs/Day Years Used Date Smoking Tobacco: Never Smokeless Tobacco: Never Alcohol Use Standard Drinks/Week Comments Yes 0 (1 standard drink = 0.6 oz pur e alcohol) RARE Comments No Sex and Gender Information Value Date Recorded Sex Assigned at Not on file Legal Sex Female 10:54 PM NETWORK DESIGN 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 [place] [address] PCP - General 03/08/20 04/06/20 Provider, No [place] [address] PCP - General 04/07/20 04/15/20 Yaneth Reyes MD [address] [place] [id number] PCP - General Family Medicine 04/16/20 [place], Subacute Unit [address] [address] [facility] [place] [address] 08/06/17 Yaneth Reyes MD [address] [place] [id number] 08/06/17 04/18/20 Yaneth Reyes MD . [place] [address] Family Medicine 04/10/20 04/18/20 documented as of this encounter Additional Source Comments PLEASE NOTE: Replies to this message will not be received.[facility] and [facility]
--- OUTSIDE RECORDS SUMMARY | 2024-09-16 19:21 | XMS_ITS | Encounter Summary ---
Author Organization [facility] Address [address] [place] [address] Care Team Providers Care Flame Hardener Name Role Phone Yaneth Reyes MD Primary Care P rovider [place], Subacute Unit St. Unavailable Yaneth Reyes MD Unavailable Unknown, Provider Primary Care Provider Unavaila ble Provider, No Primary Primary Care Provider Unava ilable Yaneth Reyes MD Unavailable Yaneth Reyes MD Primary Care P rovider Encounter Details Date Type Department Care Team (Late st Contact Info) Description 05/01/2016 Retirement Visit [facility] [address] [place] [address] Brenda Lee MD [address] [facility] [place] [address] Social History Tobacco Use Types Packs/Day Years Used Date Smoking Tobacco: Never Smokeless Tobacco: Never Alcohol Use Standard Drinks/Week Comments Yes 0 (1 standard drink = 0.6 oz pur e alcohol) RARE Comments No Sex and Gender Information Value Date Recorded Sex Assigned at Not on file Legal Sex Female 10:54 PM LANGUAGE TRANSLATOR Gender Identity Not on file Sexual Orientation [...] No 04/24/2016 10:44 PM JOSET Racheal Iglesias, RN * Do you have difficulty doing [...] documented in this encounter Miscellaneous Notes * Residential Facility Note - Brenda Lee MD - 05/04/2016 12:00 AM CDT PAGE 2 [facility] - DISCHARGE REPORT [facility] - SUB ACUTE PROGRAM [address] [place] [address] NAME: Gertrudis Ledbetter [facility]#: SCHMR#: [id number] DATE: 05/04/2016 DR: Brenda Lee MD [facility] - DISCHARGE REPORT DISCHARGE DIAGNOSES: 1. Deconditioning [...] 14. Ambien 2.5 mg nightly prn. 15. [place] nasal spray prn. 16. Mouthkote prn. 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 HISTORY OF PRESENT ILLNESS: I have reviewed notations regarding recent hospitalization including progress notes, hearing consultant notes and admission data from Dr. [...] elevated at 5.5. She went to the senior label specialist on the night of admission. She was [...] tract infection. 9. 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 SURGICAL HISTORY: 1. Left inguinal hernia repair in 1999. 2. Bladder surgery at the [facility] in 1986. 3. Cholecystectomy at the [facility]. 4. Total abdominal hysterectomy at the [facility]. 5. Vein stripping on the right. 6. Laser surgery for a detached retina at the [facility]. 7. Arthroscopy of the shoulder. 8. Cataract removal bilaterally. 9. Paravaginal defect repair with open approach in 1998 with repeat procedure in 2000 with TVT sling, rectocele and cystocele repair at that time. 10. Implantation of mesh for incisional ventral hernia repair in the lower abdominal hernia with Garrison-Samuel performed at the [facility] by Dr. Flowers in 2003. ALLERGIES: SULFA CAUSED NAUSEA AND VOMITING. SOCIAL HISTORY: She is and lives with her , Fercho. She has three adult children; one of whom is a nurse in [place], [place]. She is retired. She is a [...] 8. Mouthkote two sprays q6h prn. 9. [place] nasal spray. 10. Ocuvite one tablet daily. [...] time. MD gunjan Fowler P Doc #: [id number] cc: Brenda Lee MD documented in this [...] documented as of this encounter Care Teams Flame Hardener Relationship Specialty Start Date End Date Yaneth Reyes MD PCP - General 01/12/07 03/07/20 Unknown, [place] [address] PCP - General 03/08/20 04/06/20 Provider, [place] [address] PCP - General 04/07/20 04/15/20 Yaneth Reyes MD [address] [place] [phone] PCP - General Family Medicine 04/16/20 [place], Subacute Unit [address] [place] [address] 08/06/17 Yaneth Reyes MD [address] [place] [phone] 08/06/17 04/18/20 [place] [address] Family Medicine 04/10/20 04/18/20 documented as of this encounter Additional Source Comments PLEASE NOTE: Replies to this message will not be received.[facility]
--- OUTSIDE RECORDS SUMMARY | 2024-09-16 19:22 | XMS_ITS | Encounter Summary ---
Author Organization [facility] [employer] [facility] Address [address] [place] [address] Care Team Providers Care Wrapper Rewinder Name Role Phone Yaneth Reyes MD Primary Care P rovider [place], Subacute Unit St. Unavailable Yaneth Reyes MD Unavailable Unknown, Provider Primary Care Provider Unavaila ble Provider, No Primary Primary Care Provider Unava ilable Yaneth Reyes MD Unavailable Yaneth Reyes MD Primary Care P rovider Encounter Details Date Type Department Care Team (Late st Contact Info) Description 11/06/[address] [facility] [address] [place] [address] Paul Alamo MD Social History Tobacco Use Types Packs/Day Years Used Date Smoking Tobacco: Never Smokeless Tobacco: Never Alcohol Use Standard Drinks/Week Comments Yes 0 (1 standard drink = 0.6 oz pur e alcohol) RARE Comments No Sex and Gender Information Value Date Recorded Sex Assigned at Not on file Legal Sex Female 10:54 PM FIXTURE FABRICATOR REPAIRER Gender Identity Not on file Sexual Orientation [...] documented as of this encounter Care Teams Wrapper Rewinder Relationship Specialty Start Date End Date Yaneth Reyes MD PCP - General 01/12/07 03/07/20 Unknown, [place] [id number] PCP - General 03/08/20 04/06/20 Provider, [place] [id number] PCP - General 04/07/20 04/15/20 Yaneth Reyes MD [address] [place] [phone] PCP - General Family Medicine 04/16/20 [place], [facility] [address] [place] [address] [place] [id number] 08/06/17 Yaneth Reyes MD [address] [place] [phone] 08/06/17 04/18/20 [place] [address] Family Medicine 04/10/20 04/18/20 documented as of this encounter Additional Source Comments PLEASE NOTE: Replies to this message will not be received.[facility]
--- OUTSIDE RECORDS SUMMARY | 2024-09-16 19:22 | XMS_ITS | Encounter Summary ---
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 Unavailable Yaneth Reyes MD Unavailable Unknown, Provider Primary Care Provider Unavaila ble Provider, No Primary Primary Care Provider Unava ilable Yaneth Reyes MD Unavailable Yaneth Reyes MD Primary Care P rovider Encounter Details Date Type Department Care Team (Late st Contact Info) Description 04/16/2016 Historical Conversion [facility] [address] [place] [address] Unknown, 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 [id number] PCP - General 03/08/20 04/06/20 Provider, [place] [address] PCP - General 04/07/20 04/15/20 Yaneth Reyes MD [address] [place] [id number] PCP - General Family Medicine 04/16/20 [facility] [address] [address] 08/06/17 Yaneth Reyes MD [address] [place] [phone] 08/06/17 04/18/20 [place] [address] Family Medicine 04/10/20 04/18/20 documented as of this encounter Additional Source Comments PLEASE NOTE: Replies to this message will not be received.[facility]
[2024-09-16 20:00] VITALS: BP 159/79; PULSE 70; RESP 16; O2SAT 95
[2024-09-16] MEDS: 0.9 % SODIUM CHLORIDE 1000 ml 1,000 ML IV (21:56)
[2024-09-16 22:31] LABS: Basophils Percent Auto 0.3 % (0.0-3.0); Hematocrit 74.4 % (33.0-51.0); Hemoglobin* 25.1 gm/dL (12.0-16.0); Lymphocytes Percent Auto 17.6 % (20-44); Mean Corpuscular HGB Conc 34 gm/dL (32-36); Mean Corpuscular Hemoglobin 31 pg (26-34); Mean Corpuscular Volume 92 fL (80-100); Monocytes Percent Auto 9.1 % (0.0-11.0); RDW Coefficient of Variation % 14.6 % (11.5-15.5); Red Blood Count 8.11 m/uL (4.00-5.20); White Blood Count* 3.86 K/uL (4.50-11.00)
[2024-09-16 22:32] LABS: Platelet Count* 44 K/uL (140-440); Slide Review Reflex Yes
[2024-09-16 22:43] VITALS: BP 175/79; PULSE 65; RESP 16; O2SAT 95
[2024-09-16 23:45] LABS: Albumin* 4.1 g/dL (3.3-5.0); Chloride* 101 mmol/L (96-114); Potassium* 3.8 mmol/L (3.6-5.1); Sodium* 135 mmol/L (135-149)
[2024-09-16 23:47] LABS: Blood Urea Nitrogen* 18 mg/dL (7-30); Creatinine* 0.6 mg/dL (0.5-1.5); Estimated Glomerular Filt Rate 86 ml/min
[2024-09-16 23:48] LABS: Alanine Aminotransferase* 17 U/L (4-35); Alkaline Phosphatase* 86 U/L (40-150); Anion Gap 8 mEq/L (7-15); Aspartate Amino Transferase* 20 U/L (12-35); Bilirubin Direct* 0.3 mg/dL (0.0-0.5); Bilirubin Total* 0.9 mg/dL (0.1-1.5); Calcium* 9.4 mg/dL (8.4-10.6); Carbon Dioxide* 26 mmol/L (20-32); Glucose* 104 mg/dL (60-115); Total Protein* 6.9 g/dL (6.0-8.3)
[2024-09-16 23:50] LABS: Appearance Urine Slightly Cloudy (Clear); Bilirubin Urine Negative (Negative); Blood Urine Trace-intact (Negative); Color Urine Yellow (Yellow); Glucose Urine Negative (Negative); Ketones Urine Negative (Negative); Leukocyte Esterase Urine 1+ (Negative); Nitrite Urine Negative (Negative); Protein Urine Trace (Negative); Specific Gravity Urine 1.015 (1.000-1.030); pH Urine 7.5 (5.0-8.5)
[2024-09-16 23:51] LABS: C Reactive Protein* 4.1 mg/dL (0.5-1.0)
[2024-09-16 23:57] LABS: INR 0.99 (0.91-1.10); Prothrombin Time 13.9 Seconds
[2024-09-16 23:58] LABS: Partial Thromboplastin Time* 27 Seconds (23-33)
[2024-09-17 00:27] LABS: Bacteria Urine Few; Squamous Epithelial Cell Urine Few (None-Few)
[2024-09-17 00:31] LABS: Slide Review Acceptable Review (Acceptable)
[2024-09-17 00:41] LABS: Basophils Absolute Auto 0.02 K/uL (0.00-0.30); Basophils Percent Auto 0.2 % (0.0-3.0); Eosinophils Absolute Auto 0.15 K/uL (0.00-0.50); Eosinophils Percent Auto 1.7 % (0.0-7.0); Hematocrit 34.6 % (33.0-51.0); Hemoglobin* 11.8 gm/dL (12.0-16.0); Immature Granulocytes Abs Auto 0.01 K/uL (0.00-0.30); Immature Granulocytes Pct Auto 0.1 %; Lymphocytes Absolute Auto 1.84 K/uL (0.90-2.90); Lymphocytes Percent Auto 20.7 % (20-44); Mean Corpuscular HGB Conc 34 gm/dL (32-36); Mean Corpuscular Hemoglobin 32 pg (26-34); Mean Corpuscular Volume 94 fL (80-100); Monocytes Percent Auto 13.7 % (0.0-11.0); Neutrophils Absolute Auto 5.64 K/uL (1.7-7.0); Neutrophils Percent Auto 63.6 % (42.0-72.0); Platelet Count* 265 K/uL (140-440); RDW Coefficient of Variation % 12.5 % (11.5-15.5); Red Blood Count 3.68 m/uL (4.00-5.20); White Blood Count* 8.88 K/uL (4.50-11.00)
[2024-09-17 00:44] LABS: Slide Review Reflex No
== END 2024-09-17 03:15 | disposition home or self-care (01) ==
PROVIDERS: Emergency Provider Family Medicine
DX: T83.091A Other mechanical complication of indwelling urethral catheter, initial encounter (principal); Z13.0 Encounter for screening for diseases of the blood and blood-forming organs and certain disorders involving the immune mechanism
CPT/HCPCS: 36415; 51798; 80048; 80076; 81001; 85025; 85610; 85730; 86140; 87086; 96361; 96374; 99284; J7030